=== PATIENT | female | born 1955 | race Caucasian/White ===

== ENCOUNTER 2024-12-28 18:39 | Observation (INO) | payer BC, SELFPAY ==
[2024-12-28] VITALS (7 sets, daily range): BP systolic 131–158; BP diastolic 59–76; BMI 36.5; BMI 36.1
[2024-12-28 12:29] LABS: Hematocrit 41.5 % (37.0-47.0); Hemoglobin 13.2 g/dL (12.0-16.0); Mean Corp Hgb Conc. 31.8 g/dL (33.0-37.0); Mean Corpuscular Volume 88.3 fL (81.0-99.0); Platelet Count 356 10^3/uL (130-400); Red Cell Dist. Width 13.1 % (11.5-14.5)
--- NOTE | 2024-12-28 13:43 | ED.GENMED ---
History of Present Illness
<Aron Crenshaw MD, Resident - Last Filed: 12/28/24 14:12>
General
Chief Complaint: Fever
Source: patient and family
Time Seen by Provider: 12/28/24 13:29
History of Present Illness
History of Present Illness:
This is a 69-year-old female presented with complaints of urinary symptoms including dysuria, urgency, frequency, chills and lower not feeling well. She informed me that last week she lost consciousness was taken to the ER and found to have
urosepsis was kept in the ICU for 2 days and then additional 3 days on medicine floor, she was at [facility] 12/21-12/27. During her stay she received IV antibiotics(unknown). Upon discharge she was given Levaquin 500 mg 1 tablet for 3 days.
Today was supposed to be her last day of oral antibiotic however she continues to experience urinary symptoms and chills, states she is unable to sleep because of children at night. She feels like there is something wrong which prompted her to
come to the ER for further evaluation.
Past History
<Aron Crenshaw MD, Resident - Last Filed: 12/28/24 14:12>
Past History
ED Past Medical History: Asthma, Cancer (Lung), CVA (Aneurysm), HTN, NIDDM and Other (History of renal stones and renal cyst)
ED Past Surgical History: Brain (Titanium clip for brain aneurysm), Orthopedic (Lumbar surgery) and Other (Left upper lung resection, right lung biopsy,)
Patient has exhibited threatening behavior?: No
Social History
Tobacco: Non-smoker
Alcohol: None
Drug: None
Personal:
Living: with family
Family History
Family History: Other (Noncontributory)
Review of Systems
<Aron Crenshaw MD, Resident - Last Filed: 12/28/24 14:12>
Review of Systems
Allergies reviewed?: Yes
Constitutional: Reports fatigue and chills
EENT: Reports no symptoms
Respiratory: Reports no symptoms
Cardiac: Reports no symptoms
ABD/GI: Reports abdominal pain
: Reports dysuria, frequency, flank pain, difficulty voiding and urgency
Musculoskeletal: Reports no symptoms
Skin: Reports no symptoms
Neurological: Reports no symptoms
Endocrine: Reports no symptoms
Hematologic/Lymphatic: Reports no symptoms
Psychiatric: Reports no symptoms
Phy Exam
<Aron Crenshaw MD, Resident - Last Filed: 12/28/24 14:12>
General Physical Exam
General Presentation: mild distress
General age: appears stated age
General Skin: warm
General Habitus: normal
General Mental: alert
Cardiovascular Exam
Cardiovascular Exam: regular rate/rhythm, no gallop and no murmur
Pulmonary Exam
Pulmonary Exam: lungs clear, no respiratory distress and no crackles
Gastrointestinal Exam
Gastrointestinal Exam: soft, non distended and tender (Suprapubic)
Musculoskeletal Exam
Musculoskeletal Exam: full ROM
Psychiatric Exam
Psychiatric Exam: normal mood/affect
Course
<Aron Crenshaw MD, Resident - Last Filed: 12/28/24 14:12>
Orders/Labs/Results
Orders:
Orders
12/28/24 12:10
Complete Blood Count/With Diff Urgent
12/28/24 14:05
CT Abd/pelvis W Iv Cont Urgent
Comment:
Reason For Exam: diffuse abd tenderness
12/28/24 14:06
0.9% Sodium Chloride 500 ml [Nss] 500 ml IV BOLUS
12/28/24 15:36
Comprehensive Metabolic Panel Urgent
12/28/24 15:37
Lactic Acid Urgent
Blood Culture Q30M
JOE Source: Blood/Venous
Specimen Description:
12/28/24 15:51
Urinalysis Reflex To Culture Urgent
Date Specimen was Collected: 12/28/24
Time Specimen was Collected: 11:59
Urine Microscopic Reflex Cult Urgent
Urine Culture Urgent
JOE Source: U
Specimen Description:
Date Specimen was Collected: 12/28/24
Time Specimen was Collected: 11:59
12/28/24 16:29
CefTRIAXone [Rocephin] 2,000 mg IV NOW STA
12/28/24 17:12
Blood Culture Q30M
JOE Source: Blood/Venous
Specimen Description:
Abnormal Lab Results
12/28/24 12/28/24 12/28/24
12:10 15:36 15:51
WBC 12.3 H 10^3/uL
(4.8-10.8)
MCHC 31.8 L g/dL
(33.0-37.0)
Abs Immat Gran (auto) 0.6 H 10^3/uL
(0-0.05)
Absolute Neuts (auto) 8.0 H 10^3/uL
(1.4-6.5)
Absolute Monos (auto) 0.7 H 10^3/uL
(0.1-0.6)
Immature Gran % 5.2 H %
(0-0.5)
Creatinine 1.7 H mg/dL
(0.6-1.0)
Glucose 127 H mg/dl
(70-99)
Ur Occult Blood Reflex 4+ A
(Negative)
Leukocyte Esterase Rfl 3+ A
(Negative)
Urine RBC 3-6 A /HPF
(0-2)
Urine WBC (Reflex) 30-40 A /HPF
(0-5)
Urine Bacteria (Reflex) Few A
(Negative)
Urine Glucose 1+ A
(Negative)
Urine Albumin (Reflex) 4+ A
(Neg - Trace)
12/28/24 12:10
12/28/24 15:36
Vital Signs
Initial and Last Documented VS:
Initial Vital Signs
Temp Pulse Resp BP Pulse Ox
98.7 F 75 18 131/69 98
12/28/24 11:54 12/28/24 11:54 12/28/24 11:54 12/28/24 11:54 12/28/24 11:54
Last Documented Vital Signs
Temp Pulse Resp BP Pulse Ox
98.2 F 65 16 135/61 98
12/28/24 17:18 12/28/24 17:18 12/28/24 17:18 12/28/24 17:18 12/28/24 17:18
<Kaya Diamond MD - Last Filed: 12/28/24 17:46>
Orders/Labs/Results
Orders:
Orders
12/28/24 12:10
Complete Blood Count/With Diff Urgent
12/28/24 14:05
CT Abd/pelvis W Iv Cont Urgent
Comment:
Reason For Exam: diffuse abd tenderness
12/28/24 14:06
0.9% Sodium Chloride 500 ml [Nss] 500 ml IV BOLUS
12/28/24 15:36
Comprehensive Metabolic Panel Urgent
12/28/24 15:37
Lactic Acid Urgent
Blood Culture Q30M
JOE Source: Blood/Venous
Specimen Description:
12/28/24 15:51
Urinalysis Reflex To Culture Urgent
Date Specimen was Collected: 12/28/24
Time Specimen was Collected: 11:59
Urine Microscopic Reflex Cult Urgent
Urine Culture Urgent
JOE Source: U
Specimen Description:
Date Specimen was Collected: 12/28/24
Time Specimen was Collected: 11:59
12/28/24 16:29
CefTRIAXone [Rocephin] 2,000 mg IV NOW STA
12/28/24 17:12
Blood Culture Q30M
JOE Source: Blood/Venous
Specimen Description:
Abnormal Lab Results
12/28/24 12/28/24 12/28/24
12:10 15:36 15:51
WBC 12.3 H 10^3/uL
(4.8-10.8)
MCHC 31.8 L g/dL
(33.0-37.0)
Abs Immat Gran (auto) 0.6 H 10^3/uL
(0-0.05)
Absolute Neuts (auto) 8.0 H 10^3/uL
(1.4-6.5)
Absolute Monos (auto) 0.7 H 10^3/uL
(0.1-0.6)
Immature Gran % 5.2 H %
(0-0.5)
Creatinine 1.7 H mg/dL
(0.6-1.0)
Glucose 127 H mg/dl
(70-99)
Ur Occult Blood Reflex 4+ A
(Negative)
Leukocyte Esterase Rfl 3+ A
(Negative)
Urine RBC 3-6 A /HPF
(0-2)
Urine WBC (Reflex) 30-40 A /HPF
(0-5)
Urine Bacteria (Reflex) Few A
(Negative)
Urine Glucose 1+ A
(Negative)
Urine Albumin (Reflex) 4+ A
(Neg - Trace)
12/28/24 12:10
12/28/24 15:36
Vital Signs
Initial and Last Documented VS:
Initial Vital Signs
Temp Pulse Resp BP Pulse Ox
98.7 F 75 18 131/69 98
12/28/24 11:54 12/28/24 11:54 12/28/24 11:54 12/28/24 11:54 12/28/24 11:54
Last Documented Vital Signs
Temp Pulse Resp BP Pulse Ox
98.2 F 65 16 135/61 98
12/28/24 17:18 12/28/24 17:18 12/28/24 17:18 12/28/24 17:18 12/28/24 17:18
<Aron Crenshaw MD, Resident - Last Filed: 12/28/24 14:12>
MDM/Problems Addressed
Differential Diagnosis Includes:
UTI vs renal stone vs less likely overactive bladder vs less likely neoplastic
MDM/Problems Addressed:
will get cbc, cmp, UA, lactate, BC. Given recent urosepsis and ongoing sxs, will get CT abd/pel
<Aron Crenshaw MD, Resident - Last Filed: 12/28/24 14:12>
*Pulse Oximetry
SaO2: 98
Oxygen Mode of Delivery: Room air
Patient hypoxic: no
*Critical Care Note
Total Time (30-74mins, 75-104mins- exclusive of procedures): Not Applicable
ED Attending Note
<Aron Crenshaw MD, Resident - Last Filed: 12/28/24 14:12>
-
Portions of this chart may have been created with voice recognition software.� Occasional wrong word or��sound alike� substitutions may have occurred due to the inherent limitations of voice recognition software.
<Kaya Diamond MD - Last Filed: 12/28/24 17:46>
ED Attending Note
Patient seen and examined by attending physician: Yes
I performed a history and physical exam of patient and discussed management with resident, I reviewed resident's note and agree with documented findings and plan of care.: Yes
ED Attending Note:
I have seen and evaluated the patient with a [id number] encounter. I have spoken to the [resident] and involved in the medical history, the physical exam, medical decision making.
Evaluation and management service: agree unless noted differently below.
Results interpretation: agree unless noted differently below.
Patient is a 69-year-old woman with history of diabetes presenting to the emergency department urinary symptoms. Patient states that she was just discharged a few days ago after being admitted for urosepsis at [facility]. She was discharged on
Levaquin. Her last day was today. Has been having ongoing fevers abdominal pain dysuria urgency frequency as well as chills. She states that she felt unwell feeling even at the time of discharge. No nausea or vomiting. No diarrhea.
GENERAL: Appears unwell
HEENT: normocephalic, extraocular movements intact, moist oral mucosa
NECK: normal inspection
RESPIRATORY: no respiratory distress, clear to auscultation bilaterally
CARDIOVASCULAR: regular rate and rhythm
ABDOMEN/: soft, non-distended, tenderness to the right upper quadrant as well as the suprapubic region, no rebound or guarding, no CVA tenderness
EXTREMITIES: non-tender, no edema/swelling
NEUROLOGIC: awake and alert, moves all extremities
SKIN: warm
Patient is a 69-year-old woman with recent admission for urosepsis at [facility] presenting to the emergency department with ongoing urinary symptoms as well as chills. On arrival patient is afebrile exam shows a woman who does appear unwell and
does have tenderness in the right upper quadrant suprapubic region. Concern for ongoing UTI versus Van versus kidney stone versus biliary etiology. Will check blood work repeat urine and obtain CT scan. Will give IV fluids and obtain blood
cultures as well as a lactate.
Lactate normal. Urine does appear infected. Will give IV ceftriaxone. CT scan consistent with cystitis. No obvious kidney stone. Discussed with hospitalist excepted patient to their service.
Discharge Plan
Departure
Patient Disposition: Admit
Date of Disposition: 12/28/24
Time of Disposition: 17:45
Presentation/result/management discussed w/ accepting /: Hospitalist
Discharge Problem:
UTI (urinary tract infection)
Referrals:
Irving Pagan DO [Family Provider, Family Practice]
Interventions
Interventions:
*Risk Screen - Suicide Last Done: 12/28/24 11:54
*General Assessment Last Done: 12/28/24 11:54
*Neglect/Abuse Screening Last Done: 12/28/24 11:54
*ED- Fall Risk Assessment Last Done: 12/28/24 16:04
*ED COVID-19 Vaccine History Last Done: 12/28/24 16:04
ED- Neurological Assessment Last Done: 12/28/24 16:04
ED-Skin Assessment Last Done: 12/28/24 16:04
Discharge Date and Time
Print Language: CZECH
[2024-12-28 13:51] LABS: Nucleated Red Blood Cells % 0.2 %
[2024-12-28] MEDS: NSS 500 IV (15:50)
[2024-12-28 15:59] LABS: Urine Character Slightly Cloudy (Clear)
[2024-12-28 16:03] LABS: ALT (SGPT) 20 U/L (0-35); AST (SGOT) 25 U/L (14-36); Albumin 4.1 g/dl (3.5-5.0); Alkaline Phosphatase 70 U/L (38-126); Blood Urea Nitrogen 16 mg/dl (7-17); Calcium 9.6 mg/dl (8.4-10.2); Carbon Dioxide 24 mmol/L (22-30); Chloride 104 mmol/L (98-107); Estimated Creatinine Clearance 32 ml/min; Glucose 127 mg/dl (70-99); Potassium 3.7 mmol/L (3.5-5.1); Sodium 139 mmol/L (135-145); Total Protein 7.6 g/dl (6.3-8.2); eGFR 32.06
[2024-12-28 16:15] LABS: Urine White Cell 30-40 /HPF (0-5)
[2024-12-28] MEDS: ROCEPHIN 2000 MG IV (17:13)
--- NOTE | 2024-12-28 18:00 | HPS.HSE ---
Family Physician
-
Family Physician: Irving Pagan
Chief Complaint
-
Fever
History of Present Illness
69-year-old female has dysuria, frequency and chills. She was seen in [place] and was admitted to ICU for 2 days and 3 days on the floor from 12/21/2024 to 12/27/2024. She got IV antibiotics and was discharged on Levaquin . Completed antibiotics
at home. She left still feeling chills and dysuria. Denies any cough. Temperature was 99
Medical History
Past Medical History
Past Medical History: Reports Other
Additional Past Medical History:
Asthma, history of lung cancer, CVA, hypertension, diabetes, recently had nodules on the right lung got biopsies. Awaiting results.
Past Surgical History: Reports Other
Additional Past Surgical History:
Brain aneurysm clip, left upper lung resection, right lung biopsy, back surgery
Social History
Tobacco: Former Smoker
Alcohol: None
Drug: None
Personal:
Living: With Family
Family History
Family History: Other (mom dementia, Father HTN)
Allergies / Home Medications
Allergies reflects when Allergies were last updated in [facility].
Home Medications with original date entered in [facility]
Allergy/Medication List:
Allergies
Allergy/AdvReac Type Severity Reaction Status Date / Time
aspirin AdvReac Nausea / Verified 12/28/24 14:08
Vomiting
erythromycin base AdvReac Nausea / Verified 12/28/24 14:08
Vomiting
NSAIDS (Non-Steroidal AdvReac Nausea / Verified 12/28/24 14:08
Anti-Inflamma Vomiting
Salicylates * AdvReac Nausea / Verified 12/28/24 14:08
Vomiting
Home Medications
acetaminophen 500 mg tablet (Tylenol Extra Strength) 1,000 mg PO BIDPRN PRN mild pain 12/28/24
albuterol sulfate 90 mcg/actuation aerosol inhaler (Ventolin HFA) 2 puff inhalation R Q4HPRN PRN sob 12/28/24
carvedilol 6.25 mg tablet 6.25 mg PO Q12H 12/28/24
empagliflozin 25 mg tablet (Jardiance) 25 mg PO DAILY 12/28/24
ezetimibe 10 mg tablet 10 mg PO DAILY 12/28/24
glimepiride 1 mg tablet 1 mg PO HS 12/28/24
indapamide 2.5 mg tablet 2.5 mg PO DAILY 12/28/24
levofloxacin 500 mg tablet 500 mg PO QPM 12/28/24
losartan 100 mg tablet 100 mg PO .SEE BELOW PRN high blood pressure 12/28/24
metformin 500 mg tablet,extended release 24hr (osmotic) 1,000 mg PO .SEE BELOW 12/28/24
morphine 15 mg tablet,extended release 15 mg PO Q12H 12/28/24
oxycodone 10 mg tablet 10 mg PO Q8H 12/28/24
rosuvastatin 40 mg tablet 40 mg PO DAILY 12/28/24
tirzepatide 5 mg/0.5 mL subcutaneous pen injector (Mounjaro) 5 mg SC RODRIGUEZ 12/28/24
Review of Systems
-
A 12 point ROS was completed and negative except as noted: Yes
Constitutional: Reports Fatigue and Chills
Respiratory: Denies Cough
Cardiac: Denies Chest Pain
Abdomen/GI: Reports Abdominal Pain; Denies Vomiting or Constipated
: Reports Dysuria, Frequency and Urgency; Denies Flank Pain
Physical Exam
Vital Signs
Vital Signs
Temp Pulse Resp BP Pulse Ox
98.2 F 65 16 135/61 98
12/28/24 17:18 12/28/24 17:18 12/28/24 17:18 12/28/24 17:18 12/28/24 17:18
Physical Exam
General: No Apparent Distress
Respiratory: Clear
Cardiac: S1/S2 and Regular Rhythm
GI: Soft and Tender (mild Lower quadrant tenderness)
Musculoskeletal: No Edema
Skin: Warm
Neuro: Awake, Alert, Oriented and Nonfocal/grossly intact
Psych: Intact Judgment/Insight
Laboratory Results
-
12/28/24 12:10
12/28/24 15:36
Laboratory Results
Lactic Acid 1.5 mmol/L (0.7-2.0) 12/28/24 15:37
Total Bilirubin 0.6 mg/dl (0.2-1.3) 12/28/24 15:36
AST 25 U/L (14-36) 12/28/24 15:36
ALT 20 U/L (0-35) 12/28/24 15:36
Alkaline Phosphatase 70 U/L (38-126) 12/28/24 15:36
Impression/Plan
-
IMPRESSION/PLAN:
CT abdomen pelvis-urinary bladder wall thickening and mild fat stranding. Recommend correlation with urinalysis if there is concern for acute cystitis. Bilateral nephrolithiasis. Bilateral renal cysts and a few other small renal lesions that are
indeterminate by donation. Likely complex cysts. Neoplasms cannot be excluded. Recommend abdominal MRI on routine basis. 1.9 cm circular H.E.L.P. hypoattenuating lesion of the hepatic dome also indeterminate. Completely evaluated with MRI.
# Chills, fatigue, dysuria, frequency
Possibly partially treated UTI
Start cefepime
Get culture data from [place] where she was recently admitted
Await our cultures as well
Pyridium for symptom control
Hold Jardiance
IV fluids
# Kidney injury
Acute kidney injury versus CKD
Hold Jardiance, metformin, losartan,Indapamide,
Get results from [place] and follow creatinine
# Hypertension-continue carvedilol. Hold Losartan
# Diabetes-hemoglobin A1c- check
Hold Jardiance, metformin,
On ro as OP
Continue glimepiride 1 mg p.o. at bedtime
# Hyperlipidemia-continue statin,Zetia
# Chronic pain- Narcotic dependent- Continue Morphine and Oxycodone
# History of Squamous cell lung cancer stage 1 a- S/P left upper Lobectomy December 2022
Now has right lung nodules- S/P Bx 2 weeks ago- awaiting results.
# Obesity BMI 36 On ro as OP
# Ex Smoker- Quit 13 years ago
# DVT Prophylaxis- SARAH
# Full CODE
D/W at bed side
D/W Pharmacy
Time spent over 75 min
Part of this note was created using voice recognition system. Occasional wrong word or��sound alike� substitutions may have inadvertently occurred due to the inherent limitations of voice recognition software. If noted kindly bring it to my
attention for correction.
[2024-12-28] MEDS: TYLENOL 1000 MG PO (19:03)
--- NOTE | 2024-12-28 21:07 | W.PN.UPDATE ---
Update Note
Progress Note Update
per pharmacist- pyridum contraindicated in pt with Crcl<50ml.min as can worsen JOHNNY and cause potential hemolytic anemia and methoemoglobinemia. Will DC
[2024-12-28] MEDS: SENOKOT 8.6 MG PO (21:33)
[2024-12-28] MEDS: HEPARIN 5000 UNITS SC (21:33)
[2024-12-28] MEDS: ROXICODONE 10 MG PO (21:33)
[2024-12-28] MEDS: MS CONTIN (EXTENDED RELEASE) 15 MG PO (21:33)
[2024-12-28] MEDS: COLACE 100 MG PO (21:33)
[2024-12-28] MEDS: COREG 6.25 MG PO (21:33)
[2024-12-28 21:57] LABS: Glucose - Point of Care 121 mg/dl (70-99)
[2024-12-28] MEDS: NSS 1000 IV (22:08)
[2024-12-28] MEDS: AMARYL 1 MG PO (22:08)
[2024-12-28] MEDS: MAXIPIME 1000 MG IV (23:30)
[2024-12-28] MEDS: STERILE WATER FOR INJECTION 10 ML IV (23:30)
[2024-12-29] MEDS: MELATONIN 5 MG PO (00:46)
[2024-12-29 03:41] VITALS: BP 119/64
[2024-12-29] MEDS: ROXICODONE 10 MG PO ×3 (05:51→23:05)
[2024-12-29 07:25] VITALS: BP 130/53
[2024-12-29 07:40] LABS: Glucose - Point of Care 122 mg/dl (70-99)
[2024-12-29] MEDS: NOVOLOG FLEXPEN-LOW RESISTANCE SC ×3 (07:41→16:58)
[2024-12-29] MEDS: MS CONTIN (EXTENDED RELEASE) 15 MG PO ×2 (08:13→20:06)
[2024-12-29] MEDS: COLACE 100 MG PO (08:15)
[2024-12-29] MEDS: SENOKOT 8.6 MG PO (08:15)
[2024-12-29] MEDS: MIRALAX 17 GRAMS PO (08:16)
[2024-12-29] MEDS: ZETIA 10 MG PO (08:16)
[2024-12-29] MEDS: HEPARIN 5000 UNITS SC ×2 (08:16→20:18)
[2024-12-29] MEDS: CRESTOR 40 MG PO (08:16)
[2024-12-29] MEDS: COREG 6.25 MG PO ×2 (08:17→20:06)
[2024-12-29] MEDS: MAXIPIME 1000 MG IV ×3 (08:17→23:22)
[2024-12-29] MEDS: STERILE WATER FOR INJECTION 10 ML IV ×3 (08:17→23:22)
[2024-12-29 08:35] LABS: Hematocrit 33.6 % (37.0-47.0); Hemoglobin 10.7 g/dL (12.0-16.0); Mean Corp Hgb Conc. 31.8 g/dL (33.0-37.0); Mean Corpuscular Volume 89.8 fL (81.0-99.0); Nucleated Red Blood Cells % 0 %; Platelet Count 269 10^3/uL (130-400); Red Cell Dist. Width 13.4 % (11.5-14.5)
[2024-12-29 09:25] LABS: Glycohemoglobin (HgbA1c) 6.6 % (4.0-5.6)
[2024-12-29 10:03] LABS: Blood Urea Nitrogen 16 mg/dl (7-17); Calcium 9.0 mg/dl (8.4-10.2); Carbon Dioxide 20 mmol/L (22-30); Chloride 108 mmol/L (98-107); Estimated Creatinine Clearance 36 ml/min; Glucose 113 mg/dl (70-99); Potassium 3.5 mmol/L (3.5-5.1); Sodium 138 mmol/L (135-145); eGFR 37.26
[2024-12-29] MEDS: NSS 1000 IV ×2 (10:32→23:22)
[2024-12-29] MEDS: TYLENOL 1000 MG PO (10:33)
[2024-12-29 11:20] VITALS: BP 112/55
[2024-12-29 12:31] LABS: Glucose - Point of Care 122 mg/dl (70-99)
--- NOTE | 2024-12-29 14:37 | W.PN.HOSP.TC ---
Today's Communication/Plan
-
Continue antibiotics
Await records from [place]
IV fluids
Antibiotics
Assessment / Plan
Assessment / Plan
CT abdomen pelvis-urinary bladder wall thickening and mild fat stranding. Recommend correlation with urinalysis if there is concern for acute cystitis. Bilateral nephrolithiasis. Bilateral renal cysts and a few other small renal lesions that are
indeterminate by donation. Likely complex cysts. Neoplasms cannot be excluded. Recommend abdominal MRI on routine basis. 1.9 cm circular H.E.L.P. hypoattenuating lesion of the hepatic dome also indeterminate. Completely evaluated with MRI.
Fells better . Lower abdominal discomfort better
Has chronic back and hip pain.
CVS: S1-S2 normal
Chest: CTA B/L
Abdomen: Soft, NT , Bowel sounds present
Extremities: No edema
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
# Chills, fatigue, dysuria, frequency
Possibly partially treated UTI
Started cefepime
Get culture data from [place] where she was recently admitted
Await our cultures as well
Pyridium stopped
Hold Jardiance
IV fluids
# Kidney injury
Acute kidney injury versus CKD
Hold Jardiance, metformin, losartan,Indapamide,
Get results from [place] and follow creatinine
# Hip pain-check x-ray. Lidocaine patch
# Hypertension-continue carvedilol. Hold Losartan
# Diabetes-hemoglobin A1c- 6.6
Hold Jardiance, metformin.
On Mounjaro as OP
Continue glimepiride 1 mg p.o. at bedtime
# Hyperlipidemia-continue statin,Zetia
# Chronic pain- Narcotic dependent- Continue Morphine and Oxycodone
# History of Squamous cell lung cancer stage 1 a- S/P left upper Lobectomy December 2022
Now has right lung nodules- S/P Bx 2 weeks ago- awaiting results.
# Obesity BMI 36 On Mounjaro as OP
# Ex Smoker- Quit 13 years ago
# DVT Prophylaxis- SARAH
# Full CODE
Anticipated Discharge: 24 - 48 hours
Subjective/Interval History
-
Date of Service: December 29, 2024
Objective Data
-
Labs:
Laboratory Results
12/29/24
08:11
WBC 10.3
Hgb 10.7 L
Hct 33.6 L
Plt Count 269 D
Sodium 138
Potassium 3.5
Chloride 108 H
Carbon Dioxide 20 L
BUN 16
Creatinine 1.5 H
Glucose 113 H
Calcium 9.0
Vital Signs:
Vital Signs
Temp Pulse Resp BP Pulse Ox
98.1 F 66 20 112/55 100
12/29/24 11:20 12/29/24 11:20 12/29/24 11:20 12/29/24 11:20 12/29/24 13:02
[2024-12-29 15:28] VITALS: BP 145/68
[2024-12-29] MEDS: LIDOCAINE 4% PATCH 1 PATCH TOPICAL (15:33)
[2024-12-29 16:55] LABS: Glucose - Point of Care 131 mg/dl (70-99)
--- NOTE | 2024-12-29 17:05 | CM ---
Alert awake oriented patient who lives with her in a 2 story home with 2 steps to enter and 10 steps to bed/bathroom. She is independent in activates of daily living.She does not drive .She used a walker here in hospital.Regular observation
copy given explained. Copy signed on chart.
Had [facility] in past . No SNF hx
Pharmacy [facility]
PCP Dr Cormier
PLAN Home with no anticipated needs
[2024-12-29 19:46] VITALS: BP 145/71
[2024-12-29] MEDS: COLACE PO (20:12)
[2024-12-29] MEDS: SENOKOT PO (20:13)
[2024-12-29 21:25] LABS: Glucose - Point of Care 112 mg/dl (70-99)
[2024-12-29] MEDS: AMARYL PO ×2 (22:00→23:06)
[2024-12-29] MEDS: REMOVE LIDOCAINE PATCH 1 PATCH REMOVE (23:05)
[2024-12-29 23:43] VITALS: BP 129/56
[2024-12-30] MEDS: TYLENOL 1000 MG PO ×2 (03:40→15:50)
[2024-12-30 03:43] VITALS: BP 123/43
[2024-12-30 05:40] VITALS: BP 116/53
[2024-12-30] MEDS: ROXICODONE 10 MG PO ×3 (06:36→22:57)
[2024-12-30 06:40] LABS: Hematocrit 34.6 % (37.0-47.0); Hemoglobin 10.8 g/dL (12.0-16.0); Mean Corp Hgb Conc. 31.2 g/dL (33.0-37.0); Mean Corpuscular Volume 90.3 fL (81.0-99.0); Platelet Count 281 10^3/uL (130-400); Red Cell Dist. Width 13.8 % (11.5-14.5)
[2024-12-30 07:18] LABS: Blood Urea Nitrogen 14 mg/dl (7-17); Calcium 9.0 mg/dl (8.4-10.2); Carbon Dioxide 21 mmol/L (22-30); Chloride 112 mmol/L (98-107); Estimated Creatinine Clearance 42 ml/min; Glucose 103 mg/dl (70-99); Potassium 3.9 mmol/L (3.5-5.1); Sodium 140 mmol/L (135-145); eGFR 44.24
[2024-12-30 07:20] VITALS: BP 116/47
[2024-12-30 07:56] LABS: Glucose - Point of Care 103 mg/dl (70-99)
[2024-12-30] MEDS: NOVOLOG FLEXPEN-LOW RESISTANCE SC ×2 (08:37→16:15)
[2024-12-30] MEDS: MAXIPIME 1000 MG IV ×3 (08:40→23:02)
[2024-12-30] MEDS: STERILE WATER FOR INJECTION 10 ML IV ×3 (08:40→23:02)
[2024-12-30] MEDS: COREG 6.25 MG PO ×2 (08:47→20:47)
[2024-12-30] MEDS: ZETIA 10 MG PO (08:47)
[2024-12-30] MEDS: COLACE 100 MG PO (08:47)
[2024-12-30] MEDS: HEPARIN 5000 UNITS SC ×2 (08:47→20:45)
[2024-12-30] MEDS: MIRALAX PO (08:47)
[2024-12-30] MEDS: CRESTOR 40 MG PO (08:47)
[2024-12-30] MEDS: LIDOCAINE 4% PATCH 1 PATCH TOPICAL (08:47)
[2024-12-30] MEDS: MS CONTIN (EXTENDED RELEASE) 15 MG PO ×2 (08:53→20:45)
[2024-12-30] MEDS: SENOKOT 8.6 MG PO (08:53)
[2024-12-30 11:05] VITALS: BP 133/68
[2024-12-30 11:40] LABS: Glucose - Point of Care 164 mg/dl (70-99)
[2024-12-30] MEDS: NOVOLOG FLEXPEN-LOW RESISTANCE 1 UNITS SC (13:33)
[2024-12-30] MEDS: NSS 1000 IV (14:49)
--- NOTE | 2024-12-30 15:03 | W.PN.HOSP.TC ---
Today's Communication/Plan
-
Await records from [facility]
Continue IV fluids and cefepime
Follow creatinine tomorrow
Assessment / Plan
Assessment / Plan
CT abdomen pelvis-urinary bladder wall thickening and mild fat stranding. Recommend correlation with urinalysis if there is concern for acute cystitis. Bilateral nephrolithiasis. Bilateral renal cysts and a few other small renal lesions that are
indeterminate by donation. Likely complex cysts. Neoplasms cannot be excluded. Recommend abdominal MRI on routine basis. 1.9 cm circular H.E.L.P. hypoattenuating lesion of the hepatic dome also indeterminate. Completely evaluated with MRI.
Fells better . Lower abdominal discomfort much better
Has chronic back and hip pain. Says improving.
CVS: S1-S2 normal
Chest: CTA B/L
Abdomen: Soft, NT , Bowel sounds present
Extremities: No edema
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
# Chills, fatigue, dysuria, frequency
Possibly partially treated UTI
Continue cefepime. Patient states that she feels much better
Get culture data from [facility] where she was recently admitted
For cultures and urine cultures at the recent hospital was negative
Pyridium ordered
Hold Jardiance
IV fluids to be continued
# Kidney injury
Acute kidney injury versus CKD
Hold Jardiance, metformin, losartan,Indapamide,
Get results from [place] and follow creatinine
# Hip pain-degenerative changes. Lidocaine patch for pain
# Hypertension-continue carvedilol. Hold Losartan
# Diabetes-hemoglobin A1c- 6.6
Hold Jardiance, metformin.
On Mounjaro as OP
Continue glimepiride 1 mg p.o. at bedtime
# Hyperlipidemia-continue statin,Zetia
# Chronic pain- Narcotic dependent- Continue Morphine and Oxycodone
# History of Squamous cell lung cancer stage 1 a- S/P left upper Lobectomy December 2022
Now has right lung nodules- S/P Bx 2 weeks ago- awaiting results.
# Obesity BMI 36 On Mounjaro as OP
# Ex Smoker- Quit 13 years ago
# DVT Prophylaxis- SARAH
# Full CODE
Discussed with daughter at bedside
Discussed with staff to request records again from [facility]
Part of this note was created using voice recognition system. Occasional wrong word or��sound alike� substitutions may have inadvertently occurred due to the inherent limitations of voice recognition software. If noted kindly bring it to my
attention for correction.
Anticipated Discharge: 24 - 48 hours
Subjective/Interval History
-
Date of Service: December 30, 2024
Objective Data
-
Labs:
Laboratory Results
12/30/24
05:56
WBC 9.7
Hgb 10.8 L
Hct 34.6 L
Plt Count 281
Sodium 140
Potassium 3.9
Chloride 112 H
Carbon Dioxide 21 L
BUN 14
Creatinine 1.3 H
Glucose 103 H
Calcium 9.0
Vital Signs:
Vital Signs
Temp Pulse Resp BP Pulse Ox
98.1 F 63 18 133/68 96
12/30/24 11:05 12/30/24 11:05 12/30/24 11:05 12/30/24 11:05 12/30/24 11:05
I&O
12/29/24 12/30/24 12/31/24
06:59 06:59 06:59
Intake Total 1640 / 1640
Balance 1640 / 1640
[2024-12-30 15:20] VITALS: BP 141/70
[2024-12-30] MEDS: MILK OF MAGNESIA 30 ML PO (15:42)
[2024-12-30 16:03] LABS: Glucose - Point of Care 123 mg/dl (70-99)
--- NOTE | 2024-12-30 16:49 | CM ---
Continue IV Fluids and IV antibiotics.
Awaiting on cultures.
requested [facility] medical records.
Pt is unsure she will need VN at discharge.
Offer VN at discharge.
PLAn Home with possible VN if needed
--- NOTE | 2024-12-30 18:55 | VATNOTE ---
Pt reported burning with edema < 2 inches noted at left basillic #22 IV site. NSS had been infusing. IV site removed and pillow provided for elevation.
[2024-12-30] MEDS: REMOVE LIDOCAINE PATCH 1 PATCH REMOVE (20:47)
[2024-12-30] MEDS: AMARYL 1 MG PO (21:00)
[2024-12-30 21:01] LABS: Glucose - Point of Care 124 mg/dl (70-99)
[2024-12-30] MEDS: COLACE PO (22:28)
[2024-12-30] MEDS: SENOKOT PO (22:29)
[2024-12-30 23:01] VITALS: BP 144/63
[2024-12-31] MEDS: TYLENOL 1000 MG PO ×3 (01:55→23:10)
[2024-12-31] MEDS: NSS 1000 IV ×2 (05:09→19:43)
[2024-12-31] MEDS: ROXICODONE 10 MG PO ×3 (06:19→21:59)
[2024-12-31 08:15] VITALS: BP 124/56
[2024-12-31 08:43] LABS: Blood Urea Nitrogen 12 mg/dl (7-17); Calcium 9.1 mg/dl (8.4-10.2); Carbon Dioxide 20 mmol/L (22-30); Chloride 114 mmol/L (98-107); Estimated Creatinine Clearance 49 ml/min; Glucose 95 mg/dl (70-99); Potassium 3.9 mmol/L (3.5-5.1); Sodium 141 mmol/L (135-145); eGFR 54.06
[2024-12-31 08:49] LABS: Glucose - Point of Care 123 mg/dl (70-99)
[2024-12-31] MEDS: STERILE WATER FOR INJECTION 10 ML IV ×3 (08:50→23:27)
[2024-12-31] MEDS: MAXIPIME 1000 MG IV ×3 (08:50→23:27)
[2024-12-31] MEDS: CRESTOR 40 MG PO (08:52)
[2024-12-31] MEDS: COREG 6.25 MG PO ×2 (08:52→19:44)
[2024-12-31] MEDS: LIDOCAINE 4% PATCH 1 PATCH TOPICAL (08:52)
[2024-12-31] MEDS: ZETIA 10 MG PO (08:52)
[2024-12-31] MEDS: HEPARIN 5000 UNITS SC ×2 (08:53→19:44)
[2024-12-31] MEDS: MS CONTIN (EXTENDED RELEASE) 15 MG PO ×2 (08:55→19:45)
[2024-12-31] MEDS: NOVOLOG FLEXPEN-LOW RESISTANCE SC ×3 (08:56→16:46)
[2024-12-31] MEDS: SENOKOT PO ×3 (08:57→19:57)
[2024-12-31] MEDS: COLACE PO ×3 (08:57→19:57)
[2024-12-31] MEDS: MIRALAX PO (08:57)
--- NOTE | 2024-12-31 10:53 | VATNOTE ---
Site of L arm infiltrate assessed during routine rounds. No swelling noted, pt denies pain, states she feels infiltrate is better and has now been resolved.
[2024-12-31 13:08] LABS: Glucose - Point of Care 149 mg/dl (70-99)
--- NOTE | 2024-12-31 13:30 | W.PN.HOSP.TC ---
Today's Communication/Plan
-
Continue current treatment for today
Await records from [place] [place]
Possible discharge tomorrow likely on p.o. Levaquin
Assessment / Plan
Assessment / Plan
CT abdomen pelvis-urinary bladder wall thickening and mild fat stranding. Recommend correlation with urinalysis if there is concern for acute cystitis. Bilateral nephrolithiasis. Bilateral renal cysts and a few other small renal lesions that are
indeterminate by donation. Likely complex cysts. Neoplasms cannot be excluded. Recommend abdominal MRI on routine basis. 1.9 cm circular H.E.L.P. hypoattenuating lesion of the hepatic dome also indeterminate. Completely evaluated with MRI.
Fells better . Lower abdominal discomfort much better
Has chronic back and hip pain. Says improving.
CVS: S1-S2 normal
Chest: CTA B/L
Abdomen: Soft, NT , Bowel sounds present
Extremities: No edema
METAPHYSICIST: Non focal exam
# Chills, fatigue, dysuria, frequency
Possibly partially treated UTI
Continue cefepime. Patient states that she feels much better
Get culture data from [place] where she was recently admitted
Blood cultures and urine cultures here are negative
Spoke to nursing centrifugal supervisor at [facility] discussed that we still have not gotten any records from [facility] despite multiple attempts.
Verbal report CT showed no acute changes. Renal cyst. Creatinine was 3.73 on admission which was 12/21/2024 and on discharge was 1.73 on 12/26/2024. Blood cultures were negative. Urine cultures on 12/22/2024 showed Pseudomonas which was sensitive
to Levaquin.
I requested her to fax the urine culture results to us. We still have not obtained it yet.
Hold Jardiance for the next 2 weeks
# Kidney injury
Acute kidney injury . Creatinine was 3.73 on 12/21/[address] [facility]
Hold Jardiance, metformin, losartan,Indapamide presently
# Hip pain-degenerative changes. Lidocaine patch for pain
# Hypertension-continue carvedilol. Hold Losartan
# Diabetes-hemoglobin A1c- 6.6
Hold Jardiance, metformin.
On Mounjaro as OP
Continue glimepiride 1 mg p.o. at bedtime
# Hyperlipidemia-continue statin,Zetia
# Chronic pain- Narcotic dependent- Continue Morphine and Oxycodone
# History of Squamous cell lung cancer stage 1 a- S/P left upper Lobectomy December 2022
Now has right lung nodules- S/P Bx 2 weeks ago- awaiting results.
# Obesity BMI 36 On Mounjaro as OP
# Ex Smoker- Quit 13 years ago
# DVT Prophylaxis- SARAH
# Full CODE
Discussed with nursing centrifugal supervisor at [facility]
Discussed with nursing
Discussed with staff to request records again from [facility] [place]
Part of this note was created using voice recognition system. Occasional wrong word or��sound alike� substitutions may have inadvertently occurred due to the inherent limitations of voice recognition software. If noted kindly bring it to my
attention for correction.
Anticipated Discharge: Within 24 hours
Subjective/Interval History
-
Date of Service: December 31, 2024
Objective Data
-
Labs:
Laboratory Results
12/31/24
07:54
Sodium 141
Potassium 3.9
Chloride 114 H
Carbon Dioxide 20 L
BUN 12
Creatinine 1.1 H
Glucose 95
Calcium 9.1
Vital Signs:
Vital Signs
Temp Pulse Resp BP Pulse Ox
97.8 F 57 18 124/56 94
12/31/24 08:15 12/31/24 08:15 12/31/24 08:15 12/31/24 08:15 12/31/24 08:15
I&O
12/30/24 12/31/24 01/01/25
06:59 06:59 06:59
Intake Total 1640 / 1640 1400 / 1400
Balance 1640 / 1640 1400 / 1399
[2024-12-31 15:23] VITALS: BP 139/62
[2024-12-31 16:58] LABS: Glucose - Point of Care 134 mg/dl (70-99)
[2024-12-31] MEDS: REMOVE LIDOCAINE PATCH 1 PATCH REMOVE (19:45)
[2024-12-31 21:33] LABS: Glucose - Point of Care 109 mg/dl (70-99)
[2024-12-31] MEDS: AMARYL 1 MG PO (21:59)
[2024-12-31 23:13] VITALS: BP 164/74
[2025-01-01] MEDS: MELATONIN 5 MG PO (00:14)
[2025-01-01] MEDS: ROXICODONE 10 MG PO ×2 (05:30→15:17)
[2025-01-01 07:21] LABS: Glucose - Point of Care 110 mg/dl (70-99)
[2025-01-01 07:30] VITALS: BP 148/62
[2025-01-01 07:50] LABS: Blood Urea Nitrogen 13 mg/dl (7-17); Calcium 9.1 mg/dl (8.4-10.2); Carbon Dioxide 19 mmol/L (22-30); Chloride 116 mmol/L (98-107); Estimated Creatinine Clearance 54 ml/min; Glucose 99 mg/dl (70-99); Potassium 4.2 mmol/L (3.5-5.1); Sodium 139 mmol/L (135-145); eGFR > 60.00
[2025-01-01] MEDS: STERILE WATER FOR INJECTION IV (08:45)
[2025-01-01] MEDS: NSS IV (08:45)
[2025-01-01] MEDS: NOVOLOG FLEXPEN-LOW RESISTANCE SC ×2 (08:45→12:46)
[2025-01-01] MEDS: MAXIPIME IV (08:45)
[2025-01-01] MEDS: MIRALAX PO (09:02)
[2025-01-01] MEDS: COLACE PO (09:02)
[2025-01-01] MEDS: SENOKOT PO (09:03)
[2025-01-01] MEDS: CRESTOR 40 MG PO (09:10)
[2025-01-01] MEDS: LIDOCAINE 4% PATCH 1 PATCH TOPICAL (09:10)
[2025-01-01] MEDS: COREG 6.25 MG PO (09:10)
[2025-01-01] MEDS: ZETIA 10 MG PO (09:11)
[2025-01-01] MEDS: HEPARIN 5000 UNITS SC (09:11)
[2025-01-01] MEDS: MS CONTIN (EXTENDED RELEASE) 15 MG PO (09:11)
[2025-01-01] MEDS: STERILE WATER FOR INJECTION 10 ML IV ×2 (09:12→17:21)
[2025-01-01] MEDS: MAXIPIME 1000 MG IV ×2 (09:12→17:21)
[2025-01-01] MEDS: FLUSH (NSS) 2 FLUSH IV (09:13)
--- NOTE | 2025-01-01 11:12 | W.PN.HOSP.TC ---
Addendum entered and electronically signed by Rolando Hinojosa MD 01/01/25 16:58:
More than 30 minutes spent in discharge including
Final examination of the patient
Summarizing hospital stay
Instructions for continuing care to all relevant caregivers
Preparation of discharge records, prescriptions, and referral forms
Total time spent (in minutes): 38 min
Addendum entered and electronically signed by Rolando Hinojosa MD 01/01/25 14:00:
QTC noted on EKG
Bladder scan 0 ml
Dictation- [id number]
Original Note:
Today's Communication/Plan
-
Check EKG to check QTc
Bladder scan to rule out PVR
Discharge later today
Assessment / Plan
Assessment / Plan
CT abdomen pelvis-urinary bladder wall thickening and mild fat stranding. Recommend correlation with urinalysis if there is concern for acute cystitis. Bilateral nephrolithiasis. Bilateral renal cysts and a few other small renal lesions that are
indeterminate by donation. Likely complex cysts. Neoplasms cannot be excluded. Recommend abdominal MRI on routine basis. 1.9 cm circular H.E.L.P. hypoattenuating lesion of the hepatic dome also indeterminate. Completely evaluated with MRI.
Fells better . Lower abdominal discomfort much better
Has chronic back and hip pain. Says improving.
CVS: S1-S2 normal
Chest: CTA B/L
Abdomen: Soft, NT , Bowel sounds present
Extremities: No edema
APPLIANCE LINE ASSEMBLER: Non focal exam
# Chills, fatigue, dysuria, frequency
Possibly partially treated UTI
Continue cefepime. Patient states that she feels much better
Get culture data from [place] where she was recently admitted
Blood cultures and urine cultures here are negative
Spoke to nursing subway repair supervisor at [facility] discussed that we still have not gotten any records from [facility] despite multiple attempts.
Verbal report CT showed no acute changes. Renal cyst. Creatinine was 3.73 on admission which was 12/21/2024 and on discharge was 1.73 on 12/26/2024. Blood cultures were negative. Urine cultures on 12/22/2024 showed Pseudomonas which was sensitive
to Levaquin.
Called and spoke to hospitalist on-call at [facility]. He [place] texted me urine cultures from 12/22/2024 which showed pansensitive Pseudomonas. Oral agent Levaquin will be used.
Check EKG to check QTc
Patient still has some frequency hopefully this will resolve once UTI is treated. She is aware that she needs to follow-up with urologist if frequency does not go away as she may need a cystoscopy.
Dysuria completely resolved
Hold Jardiance for the next 2 weeks
# Kidney injury
Acute kidney injury . Creatinine was 3.73 on 12/21/2024 at [facility]
Hold Jardiance, metformin, losartan,Indapamide presently
Restart metformin at discharge
Blood pressure stable
Restart indapamide and losartan after discharge
BMP in 1 week
# Hip pain-degenerative changes. Lidocaine patch for pain
# Hypertension-continue carvedilol. Restart losartan at discharge
# Diabetes-hemoglobin A1c- 6.6
Hold Jardiance, restart metformin at discharge
On ro as OP
Continue glimepiride 1 mg p.o. at bedtime
# Hyperlipidemia-continue statin,Zetia
# Chronic pain- Narcotic dependent- Continue Morphine and Oxycodone
# History of Squamous cell lung cancer stage 1 a- S/P left upper Lobectomy December 2022
Now has right lung nodules- S/P Bx 2 weeks ago- awaiting results.
# Obesity BMI 36 On ro as OP
# Ex Smoker- Quit 13 years ago
# DVT Prophylaxis- SARAH
# Full CODE
Discussed with hospitalist on-call Dr. Bulmaro Stafford at [facility]
Discussed with nursing
Part of this note was created using voice recognition system. Occasional wrong word or��sound alike� substitutions may have inadvertently occurred due to the inherent limitations of voice recognition software. If noted kindly bring it to my
attention for correction.
Anticipated Discharge: Today
Subjective/Interval History
-
Date of Service: January 01, 2025
Objective Data
-
Labs:
Laboratory Results
01/01/25
06:16
Sodium 139
Potassium 4.2
Chloride 116 H
Carbon Dioxide 19 L
BUN 13
Creatinine 1.0
Glucose 99
Calcium 9.1
Vital Signs:
Vital Signs
Temp Pulse Resp BP Pulse Ox
98.1 F 64 16 148/62 97
01/01/25 07:30 01/01/25 09:10 01/01/25 07:30 01/01/25 09:10 01/01/25 07:30
I&O
12/31/24 01/01/25 01/02/25
06:59 06:59 06:59
Intake Total 1400 / 1400 1919
Balance 1400 / 1400 1919
[2025-01-01] MEDS: TYLENOL 1000 MG PO (11:18)
[2025-01-01] MEDS: COLACE 100 MG PO (11:20)
[2025-01-01 11:51] LABS: Glucose - Point of Care 142 mg/dl (70-99)
--- NOTE | 2025-01-01 14:05 | W.DS.TRANS ---
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
-
Discharge Instructions:
Discharge Diagnosis/Procedures Pseudomonas UTI
Acute kidney injury
Chronic back pain
Hypertension
Diabetes
Hyperlipidemia
History of squamous cell lung cancer
Diverticulosis
Diet Diabetic, Carb Controlled
Activity As tolerated
Driving Restrictions As prior to admission
Blood Work bmp 1 week
Others Tests MRI of the abdomen to look at cyst in kidney
and also 1.9 cm hypoattenuating lesion in the
liver on the CAT scan (report given to you)
Instructions:
Stand-Alone Forms:
Changes to Home Medications: Yes
Discharge Medications:
DC Medications w/original date entered in [employer]
acetaminophen 500 mg tablet (Tylenol Extra Strength) 1,000 mg PO BIDPRN PRN mild pain 12/28/24
albuterol sulfate 90 mcg/actuation aerosol inhaler (Ventolin HFA) 2 puff inhalation R Q4HPRN PRN sob 12/28/24
carvedilol 6.25 mg tablet 6.25 mg PO Q12H Blood Pressure 12/28/24
empagliflozin 25 mg tablet (Jardiance) 25 mg PO DAILY Diabetes 12/28/24
Held on 01/01/25. Instructions: Resume on 01/16/25.
ezetimibe 10 mg tablet 10 mg PO DAILY High Cholesterol 12/28/24
glimepiride 1 mg tablet 1 mg PO HS Diabetes 12/28/24
indapamide 2.5 mg tablet 2.5 mg PO DAILY Blood Pressure 12/28/24
metformin 500 mg tablet,extended release 24hr (osmotic) 1,000 mg PO .SEE BELOW Diabetes 12/28/24
morphine 15 mg tablet,extended release 15 mg PO Q12H Pain 12/28/24
oxycodone 10 mg tablet 10 mg PO Q8H Pain 12/28/24
rosuvastatin 40 mg tablet 40 mg PO DAILY High Cholesterol 12/28/24
tirzepatide 5 mg/0.5 mL subcutaneous pen injector (Mounjaro) 5 mg SC RODRIGUEZ Diabetes 12/28/24
levofloxacin 750 mg tablet 750 mg PO DAILY uti #3 tabs 01/01/25
lidocaine 5 % topical patch (Lidoderm) 1 patch topical DAILY back #30 ea 01/01/25
losartan 100 mg tablet 50 mg (1/2 x 100 mg) PO .SEE BELOW PRN high blood pressure #0 tabs 01/01/25
polyethylene glycol 3350 17 gram oral powder packet 17 g PO DAILY Constipation #0 ea 01/01/25
sennosides 8.6 mg tablet (Valerie-yue) 8.6 mg PO BID Constipation #0 tabs 01/01/25
Home Medication Changes
Senokot, MiraLAX, lidocaine, Levaquin new
Losartan dose decreased
Pending Results: No
[2025-01-01 15:32] VITALS: BP 140/59
--- NOTE | 2025-01-01 15:59 | CM ---
Md entered order for discharge
Spoke with pt at bedside . She said that she was ready for discharge.
Her Narciso will drive her home.
Offered VN she declined need.
PLAN Home no needs
== END 2025-01-01 21:26 | disposition home or self-care (01) ==
LOC: 4 EAST ACU 18:39
PROVIDERS: Emergency Medicine; ADMITTING PHYSICIAN Hospitalist; EMERGENCY PHYSICIAN Student in an Organized Health Care Education/Training Program; FAMILY PHYSICIAN Family Medicine
DX: N39.0 Urinary tract infection, site not specified (principal); B96.5 Pseudomonas (aeruginosa) (mallei) (pseudomallei) as the cause of diseases classified elsewhere; N17.9 Acute kidney failure, unspecified; I10 Essential (primary) hypertension; N20.0 Calculus of kidney; G89.29 Other chronic pain; E11.9 Type 2 diabetes mellitus without complications; D62 Acute posthemorrhagic anemia; E78.5 Hyperlipidemia, unspecified; E66.9 Obesity, unspecified; F11.20 Opioid dependence, uncomplicated; J45.909 Unspecified asthma, uncomplicated; Z68.36 Body mass index [BMI] 36.0-36.9, adult; Z79.84 Long term (current) use of oral hypoglycemic drugs; Z79.85 Long-term (current) use of injectable non-insulin antidiabetic drugs; Z79.899 Other long term (current) drug therapy; Z85.118 Personal history of other malignant neoplasm of bronchus and lung; Z86.73 Personal history of transient ischemic attack (TIA), and cerebral infarction without residual deficits; Z87.442 Personal history of urinary calculi; Z87.891 Personal history of nicotine dependence
CPT/HCPCS: 71046; 73502; 74177; 80048; 80053; 81003; 81015; 82962; 83036; 83605; 85025; 85027; 87040; 87086; 93005; 96361; 96374; 99284; G0378; Q9967

== ENCOUNTER → 2025-02-22 07:05 | Outpatient (REF) | payer BC, SELFPAY | LOC: RSP 07:05 | PROVIDERS: ATTENDING PHYSICIAN Surgery; FAMILY PHYSICIAN Family Medicine | DX: R91.1 Solitary pulmonary nodule (principal) | CPT/HCPCS: 88738; 94010; 94727; 94729 ==

== ENCOUNTER → 2025-03-09 07:34 | Outpatient (REF) | payer BC, SELFPAY | LOC: RAD 07:34 | PROVIDERS: ATTENDING PHYSICIAN Surgery; FAMILY PHYSICIAN Family Medicine | DX: R91.1 Solitary pulmonary nodule (principal) | CPT/HCPCS: 71260; Q9967 ==

== ENCOUNTER 2025-04-15 08:24 | Inpatient (IN) | payer BC, SELFPAY ==
[2025-03-28 08:50] LABS: Hematocrit 45.1 % (37.0-47.0); Hemoglobin 14.3 g/dL (12.0-16.0); Mean Corp Hgb Conc. 31.7 g/dL (33.0-37.0); Mean Corpuscular Volume 89.8 fL (81.0-99.0); Platelet Count 225 10^3/uL (130-400); Red Cell Dist. Width 14.5 % (11.5-14.5)
[2025-03-28 08:53] LABS: APTT 22.5 Sec (23.4-35.0); INR 1.01; PT 13.6 Sec (11.4-14.6)
[2025-03-28 10:03] LABS: ALT (SGPT) 24 U/L (0-35); AST (SGOT) 17 U/L (14-36); Albumin 4.1 g/dl (3.5-5.0); Alkaline Phosphatase 52 U/L (38-126); Blood Urea Nitrogen 32 mg/dl (7-17); Calcium 9.8 mg/dl (8.4-10.2); Carbon Dioxide 26 mmol/L (22-30); Chloride 104 mmol/L (98-107); Glucose 148 mg/dl (70-99); Potassium 5.1 mmol/L (3.5-5.1); Sodium 138 mmol/L (135-145); Total Protein 6.8 g/dl (6.3-8.2); eGFR 54.06
[2025-03-28 14:12] VITALS: BMI 36.0
--- NOTE | 2025-04-11 17:05 | PTCARENOTE ---
Abnormal EKG from 01/01/[address] Baez, no further action required.
[2025-04-15] VITALS (14 sets, daily range): BP systolic 123–168; BP diastolic 67–82; BMI 36.0
[2025-04-15] MEDS: NEURONTIN 300 MG PO (08:36)
[2025-04-15] MEDS: TYLENOL 1000 MG PO (08:36)
[2025-04-15] MEDS: TRANSDERM-SCOP 1 PATCH TRANSDERM (08:37)
[2025-04-15 09:09] LABS: Glucose - Point of Care 123 mg/dl (70-99)
[2025-04-15] MEDS: HEPARIN 5000 UNITS SC ×2 (09:22→19:53)
[2025-04-15 12:26] LABS: Glucose - Point of Care 166 mg/dl (70-99)
[2025-04-15] MEDS: DILAUDID 0.5 MG IV ×3 (12:30→13:03)
--- NOTE | 2025-04-15 12:46 | OR.RPT ---
Operative Report
Operative Report
Date of Operation: April 15, 2025
Preoperative Diagnosis: Lung Mass, Solitary - R911
Postoperative Diagnosis: Right lower lobe lung cancer - C3431
Surgeon: Riky Banuelos M.D.
Operation: Minimally invasive Wedge Resection of the Right Lower Lobe Lung Cancer � [id number]
Mediastinal Lymph Node Dissection - [id number]
Anesthesia: GET
Estimated Blood Loss: 10 cc
Drains: Chest tube in the right thorax
Specimen: Right Lower Lobe Cancer and Mediastinal Lymph Nodes
Complications: None
Procedure:
The patient was taken to the operating room and placed in the usual supine position. After an adequate double-lumen endotracheal tube was placed, the patient was positioned in the left decubitus position with the right chest up. The right chest was
prepped and draped in the usual sterile fashion. At this time, a 6 cm mid-axillary incision was made with a #10 blade, and this was taken through the skin into the subcutaneous tissue. The serratus anterior muscle overlying the 5th intercostal space
was identified and split along the course of the muscle fibers. The intercostal muscle of the fifth intercostal space was divided, and the left chest was entered. The left chest was explored. The tumor in the right lower lobe superior segment was
identified.
The tumor was wedge resected with 2 cm margins with Endo-BRIANA purple tri-mohsen. The intraoperative pathology evaluations showed non-small cell lung cancer. The margins were clean. At this time, mediastinal lymph node dissection was performed. The
lymph nodes from stations 4 to 10 were taken and sent to pathology for permanent section. Hemostasis was obtained. A 28 Israeli chest tube was placed through the anterior thoracostomy incision and anchored to the skin using a #2 nylon suture. The
ribs were re-approximated with 1 Vicryl in the transcostal fascia. The serratus anterior muscle was also re-approximated with 1 Vicryl in a running fashion. The fascia was approximated with 1 Vicryl in a running fashion. The subcutaneous tissue was
re-approximated with 3-0 Vicryl in a running fashion. The skin was approximated with 4-0 Monocryl in a running subcuticular fashion. Steri-strips and a sterile dressing were placed. The chest tube was connected to the Pleurovac. The patient was
placed back in the supine position and extubated without any problems. The final needle, sponge, and instrument counts were correct. The patient was transferred to the recovery room.
--- NOTE | 2025-04-15 12:58 | SUR.PHASEI ---
1208 Pt arrived to PACU with A-line, Woodrow TENORIO request that A-line be removed. A-line removed, pressure held for 10 minutes, Dressing applied, no s/sx of hematoma and radial pulse present
[2025-04-15] MEDS: D5/0.9% SODIUM CHLORIDE 1000 IV (14:36)
--- NOTE | 2025-04-15 14:49 | PTCARENOTE ---
Received patient from PACU around 1430 via bed in stable condition. VS stable. Chest tube to R chest wall in place to water seal draining with 8 mls of bloody drainage in chamber. Patient oriented to room. Call be in reach.
[2025-04-15] MEDS: COREG 6.25 MG PO ×2 (15:10→22:09)
[2025-04-15] MEDS: DILAUDID 1 MG IV ×2 (15:11→17:40)
[2025-04-15] MEDS: TYLENOL 650 MG PO ×2 (16:15→19:53)
[2025-04-15] MEDS: NEURONTIN 200 MG PO ×2 (16:15→22:09)
[2025-04-15] MEDS: AMARYL 1 MG PO (17:42)
[2025-04-15] MEDS: MUCINEX 600 MG PO (19:53)
[2025-04-15] MEDS: COLACE 100 MG PO (19:53)
[2025-04-15] MEDS: ADVAIR HFA 115/21 MCG INHALER INH (20:59)
[2025-04-15] MEDS: ADVAIR HFA 115/21 MCG INHALER 2 PUFF INH (21:04)
[2025-04-16] VITALS (8 sets, daily range): BP systolic 108–150; BP diastolic 58–89; PULSE 63; O2SAT 96
[2025-04-16] MEDS: TYLENOL 650 MG PO ×7 (00:09→23:42)
--- NOTE | 2025-04-16 00:55 | PTCARENOTE ---
at approx 21:30 rt verbalized pt in room 2106 pulse ox is 97% on 02 however he could not wake her up. Nurse in pt not receptive to voice ,sternal rub implemented and pt woke up began to moan and request pain medication vs stable rr 12. Pt was
educated regarding pain meds and sedation. Pt was repositioned in bed, ice pk placed to CT site. 22:00 pt was given her Neurontin and repositioned, CT site assessed, DRG CDI, draining well to gravity, lungs diminished, no crepitus palpated. Pt
verbalized she can tolerate pain until her 00:00 Tylenol is due. HOB elevated, pt was quickly back to sleep. MAINTENANCE AIDE made aware.
[2025-04-16] MEDS: D5/0.9% SODIUM CHLORIDE 1000 IV (02:16)
[2025-04-16 06:19] LABS: Hematocrit 38.9 % (37.0-47.0); Hemoglobin 12.2 g/dL (12.0-16.0); Mean Corp Hgb Conc. 31.4 g/dL (33.0-37.0); Mean Corpuscular Volume 88.8 fL (81.0-99.0); Platelet Count 217 10^3/uL (130-400); Red Cell Dist. Width 14.3 % (11.5-14.5)
[2025-04-16 06:44] LABS: ALT (SGPT) 18 U/L (0-35); AST (SGOT) 25 U/L (14-36); Albumin 3.4 g/dl (3.5-5.0); Alkaline Phosphatase 48 U/L (38-126); Blood Urea Nitrogen 18 mg/dl (7-17); Calcium 9.0 mg/dl (8.4-10.2); Carbon Dioxide 25 mmol/L (22-30); Chloride 108 mmol/L (98-107); Estimated Creatinine Clearance 51 ml/min; Glucose 242 mg/dl (70-99); Potassium 4.4 mmol/L (3.5-5.1); Sodium 140 mmol/L (135-145); Total Protein 5.9 g/dl (6.3-8.2); eGFR 54.06
[2025-04-16] MEDS: TRICOR 145 MG PO (08:03)
[2025-04-16] MEDS: CRESTOR 40 MG PO (08:03)
[2025-04-16] MEDS: MUCINEX 600 MG PO ×2 (08:04→19:19)
[2025-04-16] MEDS: COLACE 100 MG PO ×2 (08:04→19:19)
[2025-04-16] MEDS: HEPARIN 5000 UNITS SC ×2 (08:04→19:19)
[2025-04-16] MEDS: COREG 6.25 MG PO ×2 (08:04→19:20)
[2025-04-16] MEDS: NEURONTIN 200 MG PO ×3 (08:04→21:30)
[2025-04-16] MEDS: LIDOCAINE 4% PATCH 1 PATCH TOPICAL (08:05)
[2025-04-16] MEDS: ADVAIR HFA 115/21 MCG INHALER 2 PUFF INH ×2 (08:29→17:53)
[2025-04-16] MEDS: ZETIA 10 MG PO (11:14)
[2025-04-16] MEDS: COZAAR 100 MG PO (11:15)
[2025-04-16] MEDS: ROXICODONE 10 MG PO ×2 (11:15→17:09)
--- NOTE | 2025-04-16 12:16 | W.PN.GENERIC ---
Assessment / Plan
-
S/p resection of the right lung cancer POD #1
Stable
Chest tube dc'd. will check CXR in 3 hours then tomorrow AM
Put patient back on her home pain medication regiment and also Toradol added
OOB and ambulate
Await final path
Physician Progress Note
Subjective
C/o significant incision of pain. Otherwise no active issues
Objective
Vital Signs
Temp Pulse Resp BP Pulse Ox
98.4 F 64 20 124/59 96
04/16/25 11:12 04/16/25 11:15 04/16/25 11:12 04/16/25 11:15 04/16/25 11:12
Lab Results
04/16/25 05:33
04/16/25 05:33
Chest - CTA. CHest tube withour AL.
CXR - no PTX
[2025-04-16] MEDS: TORADOL 15 MG IV ×2 (14:02→18:31)
--- NOTE | 2025-04-16 16:04 | CM ---
CM met with pt bedside
Pt resides with her spouse in a 2SH with 2STE, full flight to 2nd floor
Pt is independent with her ADLs with use of a WW throughout her home and SPC in community
PCP- Irving Pagan
Rx- [facility]
Pt is POD#1 rescetion of R. lower lobe tumor and lymph node dissection
Spicer, O2 and chest tube have been removed
PT/OT with SNF recs
PAC provided- pt declined
She is hopeful for home with VN
Her spouse works out of the home during the day
She noted her dtr can work from her home during the day to assist if needed
Referral made to [facility] and pending
Discharge Disposition-declined SNF, referral to [facility] made
[2025-04-16] MEDS: AMARYL 1 MG PO (17:04)
[2025-04-16] MEDS: MS CONTIN (EXTENDED RELEASE) 15 MG PO (19:22)
[2025-04-16] MEDS: REMOVE LIDOCAINE PATCH 1 PATCH REMOVE (21:31)
[2025-04-17] MEDS: TORADOL 15 MG IV ×2 (01:22→06:37)
[2025-04-17] MEDS: TYLENOL 650 MG PO ×2 (04:21→08:05)
[2025-04-17 07:00] VITALS: BP 135/61
[2025-04-17] MEDS: ADVAIR HFA 115/21 MCG INHALER 2 PUFF INH (07:55)
[2025-04-17] MEDS: MS CONTIN (EXTENDED RELEASE) 15 MG PO (08:02)
[2025-04-17] MEDS: CRESTOR 40 MG PO (08:05)
[2025-04-17] MEDS: MUCINEX 600 MG PO (08:05)
[2025-04-17] MEDS: TRICOR 145 MG PO (08:05)
[2025-04-17] MEDS: NEURONTIN 200 MG PO (08:05)
[2025-04-17] MEDS: HEPARIN 5000 UNITS SC (08:06)
[2025-04-17] MEDS: COREG 6.25 MG PO (08:06)
[2025-04-17] MEDS: COLACE 100 MG PO (08:06)
[2025-04-17] MEDS: LIDOCAINE 4% PATCH 1 PATCH TOPICAL (08:06)
[2025-04-17] MEDS: ROXICODONE 10 MG PO (10:12)
--- NOTE | 2025-04-17 10:38 | W.DS.TRANS ---
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
-
Discharge Instructions:
Sleep Apnea Risk Low
Instructions:
Stand-Alone Forms:
Changes to Home Medications: No
Discharge Medications:
DC Medications w/original date entered in [employer]
acetaminophen 500 mg tablet (Tylenol Extra Strength) 1,000 mg PO BIDPRN PRN mild pain 12/28/24
albuterol sulfate 90 mcg/actuation aerosol inhaler (Ventolin HFA) 2 puff inhalation R Q4HPRN PRN sob 12/28/24
carvedilol 6.25 mg tablet 6.25 mg PO Q12H Blood Pressure 12/28/24
ezetimibe 10 mg tablet 10 mg PO DAILY@1200 High Cholesterol 12/28/24
glimepiride 1 mg tablet 1 mg PO HS Diabetes 12/28/24
morphine 15 mg tablet,extended release 15 mg PO Q12H Pain 12/28/24
oxycodone 10 mg tablet 10 mg PO Q8H Pain 12/28/24
tirzepatide 5 mg/0.5 mL subcutaneous pen injector (Mounjaro) 5 mg SC RODRIGUEZ Diabetes 12/28/24
lidocaine 5 % topical patch (Lidoderm) 1 patch topical DAILY back #30 ea 01/01/25
ergocalciferol (vitamin D2) 1,250 mcg (50,000 unit) capsule (Vitamin D2) 1,250 mcg PO QWEEK 04/08/25
fenofibrate nanocrystallized 145 mg tablet 145 mg PO DAILY 04/08/25
guaifenesin 600 mg tablet, extended release 12 hr (Mucinex) 600 mg PO BID 04/08/25
ibuprofen 200 mg tablet (Advil) 600 mg PO BID 04/08/25
losartan 100 mg tablet 100 mg PO DAILY@1200 04/08/25
fluticasone 250 mcg-salmeterol 50 mcg/dose blistr powdr for inhalation (Advair Diskus) 1 inh inhalation BID 04/15/25
rosuvastatin 40 mg tablet 40 mg PO DAILY 04/15/25
Home Medication Changes
Pending Results: No
--- NOTE | 2025-04-17 10:59 | W.DCSUMMARY ---
Discharge Summary
Discharge Data
Date of Admission: 04/15/25
Date of Discharge: 04/17/25
-
Pending Results: No
Hospital Course
NAME: Norma Zazueta (1955)
DATE OF ADMISSION: 04/15/2025
DATE OF DISCHARGE: 04/17/2025
DIAGNOSIS: Right lower lobe lung cancer
PROCEDURE: Wedge resection of the right right lower lobe tumor and mediastinal lymph node dissection.
SURGEON: Riky Banuelos M.D.
HISTORY OF PRESENT ILLNESS:
She is a 69-year-old woman with a history of Stage IB left upper lobe cancer, resected in 2022. Recently, she was found to have an enlarging right lower lung nodule. On 12/14/24, she underwent a bronchoscopic biopsy of the enlarging right lower lobe
lung nodule. The final pathology showed no evidence of malignancy. Recently, she was admitted to [facility] with urosepsis and discharged home on antibiotics. Otherwise, she had no complaints today.
PAST MEDICAL HISTORY: CKD, left lung cancer, HTN, and DM2.
ALLERGIES: erythromycin and ASA.
MEDICATIONS:
carvedllol 6.25 mg tablet 5.25 mg PO BID
indapamide 2.5 mg tablet 2.5 mg PO DAILY
glimepiride 1 mg tablet 1 mg PO HS
morphine 15 mg tablet extended release 15 mg PO Q12H
ezetimibe 10 mg tablet 10 mg PO DAILY
rosuvastatin 40 mg tablet 40 mg PO DAILY
Jar diance 25 mg tablet 2.5 mg PO DAILY
Mounjaro 5 mg/0.5 mL pen injector 5 mg SUBCUT l X Wk
albuterol sulfate [Ventolin HFA] 90 mcg/actuation HFA aerosol inhaler NHALATION Q4-5H PRN
REVIEW OF SYSTEMS: Unremarkable.
SOCIAL HISTORY: No EtOH or tobacco use.
FAMILY HISTORY: Non-contributory.
PHYSICAL EXAMINATION:
She was anicteric. Her head and neck examination revealed no lymphadenopathy or masses. The heart had a regular rhythm and rate. The chest was clear bilaterally. The left chest surgical scar healed well without any evidence of recurrent disease. The
lymph node basins in the left cervical, supraclavicular, axillary, and inguinal regions revealed no evidence of lymphadenopathy.
HOSPITAL COURSE: She presented to the hospital and underwent an eventful surgery. Postoperatively, she was transferred to the surgical floor, where she recovered well without any problem. On postoperative date #2, she was discharged.
CONDITION ON DISCHARGE: Stable
FOLLOW-UP: 1-2 weeks.
Discharge Plan
-
Patient Disposition: Home (Routine Discharge)
Discharge Diagnosis/Procedures: Right lower lobe lung cncer
Condition: Fair
Diet: As tolerated
Activity: As tolerated and No strenuous activity
Driving Restrictions: Not until seen by your Dr
Bathing Restrictions: OK to Shower
Activity Restrictions/Additional Instructions:
Call Dr. Banuelos's office for an follow-up appointment. ([phone])
Referrals:
Irving Pagan DO [Family Provider, Family Practice]
Prescriptions:
Continued
carvedilol 6.25 mg Tablet
6.25 mg PO Q12H
acetaminophen [Tylenol Extra Strength] 500 mg Tablet
1,000 mg PO BIDPRN PRN (Reason: mild pain)
glimepiride 1 mg Tablet
1 mg PO HS
morphine 15 mg Tablet Extended Release
15 mg PO Q12H
albuterol sulfate [Ventolin HFA] 90 mcg/actuation Hfa Aerosol Inhaler
2 puff INHALATION R Q4HPRN PRN (Reason: sob)
ezetimibe 10 mg tablet
10 mg PO DAILY@1200
oxycodone 10 mg Tablet
10 mg PO Q8H
Mounjaro 5 mg/0.5 mL Pen Injector
5 mg SC RODRIGUEZ
lidocaine [Lidoderm] 5 % adhesive patch,medicated
1 patch topical DAILY Qty: 30 0RF
fenofibrate nanocrystallized 145 mg tablet
145 mg PO DAILY
losartan 100 mg tablet
100 mg PO DAILY@1200
ergocalciferol (vitamin D2) [Vitamin D2] 1,250 mcg (50,000 unit) Capsule
1,250 mcg PO QWEEK
guaifenesin [Mucinex] 600 mg Tablet Extended Release 12hr
600 mg PO BID
ibuprofen [Advil] 200 mg Tablet
600 mg PO BID
fluticasone propion-salmeterol [Advair Diskus] 250-50 mcg/dose Blister With Device
1 inh INHALATION BID
rosuvastatin 40 mg Tablet
40 mg PO DAILY
Discharge Orders:
Discharge Patient (As Directed); Ordered 04/17/25
Ordered By: Riky Banuelos
Discharge Date and Time
Print Language: EMIRATI
[2025-04-17 11:06] VITALS: BP 146/57
[2025-04-17] MEDS: FLUZONE HIGH-DOSE 2025-26 0.5 ML IM (11:11)
--- NOTE | 2025-04-17 11:15 | CM ---
CM reviewed chart and noted dc order
Bedside meeting with pt-plan remains for home with homecare
Discussion with [facility] admissions and pt accepted for service with [facility] Pimentel
TT/Dr Banuelos and he will place VN order
Discharge Disposition- home with [facility], family transport
== END 2025-04-17 11:30 | disposition home health service (06) | DRG 165 ==
LOC: 2 SOUTH 08:24
PROVIDERS: ADMITTING PHYSICIAN Surgery; FAMILY PHYSICIAN Family Medicine
PROC: 0BBF0ZZ Excision of Right Lower Lung Lobe, Open Approach (ICD-10-PCS; 2025-04-15)
PROC: 07B70ZX Excision of Thorax Lymphatic, Open Approach, Diagnostic (ICD-10-PCS; 2025-04-15)
PROC: 3E02340 Introduction of Influenza Vaccine into Muscle, Percutaneous Approach (ICD-10-PCS; 2025-04-17)
DX: C34.31 Malignant neoplasm of lower lobe, right bronchus or lung (principal); Z85.118 Personal history of other malignant neoplasm of bronchus and lung; N18.9 Chronic kidney disease, unspecified; E11.22 Type 2 diabetes mellitus with diabetic chronic kidney disease; I12.9 Hypertensive chronic kidney disease with stage 1 through stage 4 chronic kidney disease, or unspecified chronic kidney disease; Z23 Encounter for immunization
CPT/HCPCS: 36415; 71045; 80053; 82962; 85027; 85610; 85730; 86850; 86900; 86901; 88305; 88307; 88331; 90662; 94640; 97116; 97162; 97166; G0008

== ENCOUNTER 2025-04-25 03:14 | Inpatient (IN) | payer BC, SELFPAY ==
[2025-04-25] VITALS (60 sets, daily range): BP systolic 58–135; BP diastolic 25–84; BMI 37.2; BMI 36.7
--- NOTE | 2025-04-25 01:13 | ED.GENMED ---
History of Present Illness
General
Chief Complaint: Breathing Problem
Source: patient, ambulance crew and previous hospital records (Recent hospitalization April 15 to April 17 undergoing wedge resection of the right lower lobe tumor and mediastinal lymph node dissection.)
Exam Limitations: clinical condition
Time Seen by Provider: 04/25/25 01:00
Nursing documentation reviewed up to this point in time: agreed with
History of Present Illness
History of Present Illness:
This is a 69-year-old woman with history of ekk-huyxxuy-ldsmbljlh diabetes, hypertension, hyperlipidemia, chronic low back pain�narcotic dependent, she has a history of left lung cancer status post left upper lobe resection 2022. More recently
underwent right lower lobe wedge resection as well as mediastinal lymph node dissection April 15 for recurrent�right lung cancer. Discharged to home April 17.
Over the past several days she has had progressive shortness of breath without cough nor fever. According to she has had poor oral intake since discharge home, drinking fluids well but poor intake for solids.
Shortness of breath worsened tonight, severe in nature prompting call to 911. Upon EMS arrival patient noted to be in severe respiratory distress with initial pulse ox in the 50s. Placed on BiPAP prehospital with improvement in pulse ox to mid 80s.
Due to restlessness she was given Versed 2.5 mg prehospital.
Upon arrival to the ED initial pulse ox 99 to 100% on BiPAP 16/8 with 100% oxygen.
Upon arrival patient initially complaining of some substernal chest pain. Chest pain has resolved shortly after arrival to the ED.
According to , patient has not been complaining of chest pain, she has not had a cough nor fever.
She does have a history of chronic low back pain, chronically maintained on MS Contin as well as oxy IR. MS Contin recently increased from 15 mg twice daily to 30 mg twice daily. According to she has been taking her medications
appropriately.
She has had no leg pain or swelling.
Upon review of records, hospitalized at [place] in November of this year for UTI/urosepsis and then again here in December for similar UTI/urosepsis. More recently patient has not had UTI symptoms. And again no recent fever.
Past History
Past History
ED Past Medical History: Asthma, Cancer (Left upper lobe lung cancer status post left upper lobe resection 2022. Right lower lobe lung cancer status post wedge resection right lower lobe and mediastinal lymph node dissection April 15, 2025), CVA
(Aneurysm), HTN, Hypercholesterolemia, NIDDM, Other (Chronic low back pain, narcotic dependent) and Other (History of renal stones and renal cyst)
ED Past Surgical History: Brain (Titanium clip for brain aneurysm), Orthopedic (Lumbar surgery) and Other (Left upper lung resection 2022, right lung biopsy, right lower lobe wedge resection with mediastinal lymph node dissection April 15, 2025)
Patient has exhibited threatening behavior?: No
Social History
Tobacco: Non-smoker
Alcohol: None
Drug: None
Personal:
Living: with family
Employment: Retired
Family History
Family History: Other (Noncontributory)
Phy Exam
Physical Exam
Physical Exam:
GENERAL: 69-year-old woman appears her stated age, awake but moderately lethargic, moderately tachypneic. Opens her eyes to verbal stimuli and answers yes/no questions appropriately.
EYE: pupils equal and reactive. anicteric
NECK: Supple, nontender, no meningismus, no significant adenopathy.
ENT: BiPAP mask in place.
CARDIAC: Regular rhythm, tachycardic. no murmur.
LUNGS: Moderate respiratory distress, moderately decreased breath sounds right base, fine rales and rhonchi right mid lung field as well as scant rales left base. No wheezing. Equal excursion bilaterally.
ABDOMEN: Rotund, soft, nondistended, without focal tenderness, normoactive BS.
NEUROLOGICAL: Awake, moderately lethargic, opens her eyes to verbal stimuli and answers simple yes/no questions appropriately, no focal neuro deficits.
SKIN: Cool and mildly diaphoretic, mildly ashen in color, ecchymotic patches lower abdomen appear to be related to Lovenox injections, skin intact. No rash.
MUSCULOSKELETAL: No C/C/E. peripheral pulses are full and equal b/l. No palpable tenderness.
PSYCH: Normal and appropriate interaction.
Scores
Heart Failure Risk
Heart Failure Risk Score: Yes
History of Stroke or TIA: No
History of intubation for respiratory distress: No
Heart rate on ED arrival >/= 110: Yes
SaO2 <90% on arrival on room air: Yes
HR >/=110 during 3min walk test (or too ill to perform test): Yes
ECG has acute ischemic changes: No
Urea >/=12mmol/L (BUN 33.6mg/dL): No
Serum CO2>/=35mmol/L: No
Troponin I or T elevated to SD Level (0.4mg/dL): No
NT-proBNP >/=5,000ng/L (5,000pg/ml): No
HF Risk Score: 3
Admission Status: HIGH RISK 15.9% Consider SNF treatment or admission to hospital
Course
Orders/Labs/Results
Orders:
Orders
04/25/25 00:55
Portable Chest Xray [CR Chest Portable - 1 View] Stat
Comment:
Reason For Exam: resp distress
Reason Study Needs to be Portable: Patient Unstable
04/25/25 00:56
Electrocardiogram (*1) Urgent
Reason for Study: Other
Other Reason for Exam: Respiratory Distress
Cardiac Monitoring- Treatment ONCE
EKG- Treatment ONCE
IV Insert/Care/Rem.- Treatment PRN
O2 Therapy [RESP] Urgent
Titrate/Wean O2 to maintain O2 sat greater than (%): 93
Special Instructions: TO MAINTAIN CONTINUOUS O2 SATS >/= 93%
Pulse Ox/cont/shift [RESP] Urgent
Quantity: 1
Special Instructions: continuous pulse ox
04/25/25 01:06
ABG [Arterial Blood Gas] Urgent
%Oxygen/Room Air: 100% BIPAP 12/02
B-Hydroxybutyrate Urgent
Comment: ADDED
Complete Blood Count/With Diff Urgent
Comprehensive Metabolic Panel Urgent
Manual Differential Urgent
NT-proBNP Urgent
Troponin I Urgent
04/25/25 01:07
Urinalysis Reflex To Culture Urgent
04/25/25 01:19
Lactate Level [Lactic Acid] Urgent
Venous Blood Gas Urgent
%Oxygen/Room Air: 12/02 100% Bipap
04/25/25 01:20
0.9% Sodium Chloride 1000 ml [Nss] 1,000 ml IV BOLUS
04/25/25 02:02
Add On- LAB Urgent
Tests Added?: serum acetone
04/25/25 02:05
0.9% Sodium Chloride 1000 ml [Nss] 1,000 ml IV BOLUS
04/25/25 02:16
Piperacillin/Tazo 4.5 Gram [Zosyn] 4.5 gram in 100 ml IV NOW
04/25/25 02:20
COVID-19 Antigen Stat
Source: Nasal Swab
Influenza A+B Rapid Molecular Stat
JOE Source: Nasal Swab
Specimen Description:
04/25/25 02:31
Admit/Transfer Patient As Directed
Co-Sign Provider:
Level of Care: Inpatient admission
Assign to:: ICU
Physician / Group: Anastasia
Diagnosis: Acute hypoxic respiratory failure
Reason for Hospitalization: respiratory failure
Expected length of stay greater than two midnights?: Yes
ELOS- Estimated Length of Stay in days: 2
I certify the patient meets the requirements for IP care: Yes
04/25/25 02:32
PRN Pain Medication Management As Directed
May give lesser potent ordered pain med per pt: Yes
preference::
Protocol:: Medication orders for pain may be administered in a
manner that supports deferring to patient preference
when the pt is:
- Requesting an ordered lesser potent pain medication.
Least to most potent pain medications are defined
as: acetaminophen < NSAID < tramadol < opioids
(morphine, oxycodone, hydromorphone).
- Requesting a lesser dose of the same medication IF
ORDERED.
- Requesting a less intrusive route of administration
if both routes are prescribed by the provider (PO <
IV).
04/25/25 02:37
Code Status As Directed
Resuscitation Status: Full Code
04/25/25 03:01
Basic Metabolic Panel Urgent
Magnesium Urgent
Comment: ADD ON
Phosphorus Urgent
Comment: ADD ON
04/25/25 03:04
Lactated Ringers [Lr] 500 ml IV BOLUS
04/25/25 03:33
Blood Culture Q30M
JOE Source: Blood/Venous
Specimen Description:
Blood Culture Q30M
JOE Source: Blood/Venous
Specimen Description:
04/25/25 04:04
Acetaminophen [Tylenol/Feverall] 650 mg RECTAL Q4HPRN PRN
Acetaminophen [Tylenol] 650 mg PO Q4HPRN PRN
Ipratropium/Albuterol Sulfate [Duoneb] 3 ml INH R Q4HPRN PRN
KCl 20 Meq/0.9%Sodchl 1000 ml [NSS with KCL 20 MEQ] 20 meq in 1,000 ml IV 150 mls/hr
Ketorolac [Toradol] 15 mg IV Q8HPRN PRN
Morphine Sulfate 2 mg IV Q4HPRN PRN
Ondansetron Injectable [Zofran] 4 mg IV Q6HPRN PRN
Reg Insulin 100 Units/100 ml [Novolin R Insulin Infusion] 100 units in 100 ml IV PER PROTOCOL
Initial dose in units/hr, then titrate:: 6
04/25/25 04:04
Echo 2D MMode Color/Doppler Routine
Reason for Study: hypoxia and elev trop, eval wall motion & ef for heart failure
Consult Notification Routine
Specialty to Notify: Pulmonary
Diabetes Management by Nurse Practitioner Routine
Consulting Provider: Renea Oviedo
Was provider already notified?: No
Reason for Consult: Insulin Recommendation
PULMONARY CONSULT Routine
Consulting Provider: Aldair Guallpa
Was physician already notified: No
Reason for consult: hypoxic respiratory failure on AVAPS
Legionella Urinary Antigen Routine
JOE Source: Urine
Specimen Description:
Activity As Directed
Activity Level: Out of Bed-Early Mobility
Bedside Glucose Monitoring As Directed
Frequency: Q1H
Intake/ Output As Directed
Frequency: Per unit guidelines
Vital Signs As Directed
Frequency: Per unit guidelines
Weight As Directed
Frequency: Once
Comment: on admission
Ventilator [Non-Invasive Vent Initial Set] [RESP] Routine
Mode: AVAPS-Avg Vol Assured PS
IPAP: 14
Pressure Support (G5 vent only): 6
FIO2: 7
Pt Eval And Treat Routine
Activity Level: With Assistance
DX Deep Vein Thrombosis Video Routine
04/25/25 04:17
MRSA Screen Routine
JOE Source: Nose
Specimen Description:
04/25/25 Breakfast
NPO
Allow oral meds: Yes
Allow clear liquids: Sips of Clears
Complete Blood Count/No Diff IN AM
Glycohemoglobin (HgbA1c) IN AM
Lactic Acid IN AM
Procalcitonin IN AM
If negative, will antibiotics be d/c'd or not started: Yes
Does the patient have renal or hepatic impairment?: No
Any recent (w/in 48 hrs) physiologic stress (CPR, rhabdo): No
Troponin I IN AM
CR Chest - 2 Views IN AM
Comment:
Reason For Exam: respiratory failure
04/25/25 08:00
Fluticasone/Salmeterol 115/21 [Advair Hfa 115/21 Mcg Inhaler] 2 puff INH R BID
Heparin 5,000 units SC Q12
Ipratropium/Albuterol Sulfate [Duoneb] 3 ml INH R QID
Lidocaine [Lidocaine 4% Patch] 1 patch TOPICAL DAILY
Apply Lidocaine patch(s) to:: back
Piperacillin/Tazo 3.375 Gram [Zosyn] 3.375 gram in 50 ml IV Q6H
Rosuvastatin Calcium [Crestor] 40 mg PO DAILY
Abnormal Lab Results
04/25/25 04/25/25 04/25/25
01:06 01:19 03:01
WBC 28.9 H 10^3/uL
(4.8-10.8)
RBC 4.19 L 10^6/uL
(4.20-5.40)
Hgb 11.7 L g/dL
(12.0-16.0)
MCHC 28.7 L g/dL
(33.0-37.0)
RDW 15.0 H %
(11.5-14.5)
Abs Neuts (Manual) 16.1 H 10^3/uL
(1.4-6.5)
Band Neutrophils 10 H %
(0-3)
pH 7.20 L
(7.35-7.45)
pCO2 37 H mmHg
(32-35)
pO2 273 H mmHg
(83-108)
HCO3 14.5 L* mmol/L
(21-28)
ABG O2 Sat (Measured) 99.4 H %
(94-98)
VBG pH 7.08 L*
(7.32-7.43)
VBG pCO2 51 H mmHg
(35-48)
VBG pO2 53 H mmHg
(30-50)
VBG HCO3 15.1 L mmol/L
(22-27)
Carbon Dioxide 14 L* mmol/L 19 L mmol/L
(22-30) (22-30)
Creatinine 1.3 H mg/dL 1.3 H mg/dL
(0.6-1.0) (0.6-1.0)
Glucose 623 H* mg/dl 463 H* mg/dl
(70-99) (70-99)
Lactic Acid 12.3 H* mmol/L
(0.7-2.0)
Phosphorus 6.6 H mg/dl
(2.5-4.5)
Troponin I 0.048 H* ng/ml
Total Protein 5.8 L g/dl
(6.3-8.2)
Albumin 3.3 L g/dl
(3.5-5.0)
B-Hydroxybutyrate 0.38 H mmol/L
(0.02-0.27)
04/25/25 01:06
04/25/25 03:01
Vital Signs
Initial and Last Documented VS:
Initial Vital Signs
BP
118/84
04/25/25 00:57
Last Documented Vital Signs
Temp Pulse Resp BP Pulse Ox
96.9 F L 106 19 91/69 97
04/25/25 05:02 04/25/25 05:02 04/25/25 05:02 04/25/25 05:00 04/25/25 05:02
MDM/Problems Addressed
Differential Diagnosis Includes:
Acute respiratory distress/respiratory failure requiring BiPAP and supplemental oxygen.
Concern for pneumothorax
Pleural effusion
Pneumonia
CHF
COPD
ACS
PE
MDM/Problems Addressed:
Pulse ox markedly improved with BiPAP
Will continue current settings.
Noted to have some substernal chest pain initially upon arrival to the ED which has since resolved. According to has not been complaining of chest pain at least over the past several days but has noted increased shortness of breath over the
past several days.
Prehospital EKG shows sinus tachycardia otherwise unremarkable.
Initial EKG here shows sinus tachycardia at 120, otherwise similar and unchanged from previous EKG December 2024 save for heart rate has increased from 57 to now 120. No evidence of acute ischemic changes.
Portable chest x-ray shows platelike atelectasis right base with global interstitial crowding right lung field, concern for pleural effusion versus infiltrate versus atelectasis right base. There is no pneumothorax.
Initial blood pressure 110-120, now has become somewhat hypotensive at 68 systolic. She remains awake and now more responsive. She is afebrile.
Labs are pending.
Will initiate IV fluid bolus.
To consider CT of the chest/PE study.
*Radiology
Radiology exam reviewed: preliminary read by ED provider (Portable chest x-ray shows right lower lobe platelike atelectasis, focal effusion versus infiltrate. Increased interstitial markings globally within the right hemithorax but no pneumothorax)
*Pulse Oximetry
SaO2: 98
Oxygen Mode of Delivery: BiPAP
Patient hypoxic: yes
*EKG
Interpreted by ED Provider?: Yes
Interpretation: abnormal
Comparison EKG: changes noted (Sinus tachycardia has replaced sinus bradycardia noted December 2024. Otherwise unchanged)
Rate: tachycardiac
Rhythm: sinus
[place]: normal axis
Interval: normal interval
QRS Pattern: normal QRS
Ischemia: no ischemia
*Imaging Scheduler Interpretation
Rate: tachycardiac
Interpretation: abnormal
Rhythm: sinus
*Critical Care Note
Total Time (30-74mins, 75-104mins- exclusive of procedures): 60
comment:
Critical care statement: A total of 60 minutes of critical care time was provided for this patient. This includes management of unstable vital signs, evaluation of the patient at bedside, reviewing the patient's pertinent medical records, discussion
with consultants, review of old EKGs and review of pertinent medical records. This time with separate from time utilized to perform the aforementioned documented procedures
Data Reviewed
Review of Other/Old Records Reveals: Radiology Studies, Operative Reports and Discharge Summary
Source: spouse and ambulance crew
Update Note
Update Note:
Much less tachypneic, resting comfortably.
More responsive.
Sinus tachycardia is improving with IV fluids and hypotension is resolving as well.
Labs notable for markedly elevated white blood cell count of 28.9.
VBG shows metabolic acidosis with mild respiratory acidosis.
Blood sugar significantly elevated at 623. believes that patient has not been compliant with her glimepiride. Unsure if she has been taking her Mounjaro as well. She has been drinking fluids, primarily apple juice.
Creatinine 1.3 which has trended up from her baseline of 1-1.1
Troponin minimally elevated 0.048.
BNP elevated at 1400. No old BNP to compare.
It is reassuring that heart rate and respiratory rate improving with IV fluids. I do not suspect CHF is our main issue.
Concern for DKA versus HHNK.
Will continue an additional liter of normal saline solution, recheck blood sugar. Will likely require initiation of IV insulin at that point.
Due to elevated white blood cell count must consider occult pneumonia, sepsis thus will initiate antibiotics.
Will admit to hospitalist service.
ED Attending Note
-
Portions of this chart may have been created with voice recognition software.� Occasional wrong word or��sound alike� substitutions may have occurred due to the inherent limitations of voice recognition software.
Discharge Plan
Departure
Patient Disposition: Admit
Date of Disposition: 04/25/25
Time of Disposition: 02:14
Admit to: ICU
Admit to doctor: Anastasia
Presentation/result/management discussed w/ accepting MD/DO: Hospitalist
Condition: Serious
Discharge Problem:
Acute hypoxemic respiratory failure, DKA (diabetic ketoacidosis), Severe lactic acidosis, Increased anion gap metabolic acidosis, Elevated troponin, Acute kidney injury
Interventions
Interventions:
*Risk Screen - Suicide Last Done: 04/25/25 01:00
*General Assessment Last Done: 04/25/25 01:00
*Neglect/Abuse Screening Last Done: 04/25/25 01:00
*ED- Fall Risk Assessment Last Done: 04/25/25 01:00
*ED COVID-19 Vaccine History Last Done: 04/25/25 01:00
*ED Influenza Vaccine History Last Done: 04/25/25 01:00
*Nursing Disposition Last Done: 04/25/25 04:20
ED- Cardiac Assessment Last Done: 04/25/25 01:00
ED- Pulmonary Assessment Last Done: 04/25/25 01:00
Discharge Date and Time
Discharge Date/Time: 04/25/25 04:00
[2025-04-25] MEDS: NSS 1000 IV ×3 (01:20→22:17)
--- NOTE | 2025-04-25 01:25 | HPS.HSE ---
Family Physician
-
Family Physician: NOT KNOW UNKNOWN - PT DOES
Chief Complaint
-
Shortness of breath
History of Present Illness
This is a 69-year-old female who has past medical history of lung cancer with a prior left upper lobe resection, recent diagnosis of right lower lobe squamous cell cancer status post wedge resection of the right lower lobe on April 15,
ozw-mvejjjj-urvccjyml diabetes, hypertension, brain aneurysm status post clipping, CVA presenting to the emergency department via EMS for difficulty breathing.
Spouse reported that patient has been having difficulty breathing for about 1 week. She checked a pulse ox at home and over the last week she has dipped down to the 80s at around 86 to 88% and then going up to 93%. She complains of dyspnea on
exertion. She did not have any cough. She had no sinus congestion and sore throat wheezing. Spouse denies any signs of congestion. Patient denies any chest pain. They have had no fevers. There has been no known sick contacts at home. She was
otherwise in the hospital recently for surgery. She had no postoperative complication, chest tube was removed without any complication and she had no pneumothorax at the end of the hospitalization on x-ray.
Spouse also reports that the patient has not been taking transplant hide and glimepiride and she has felt pasty and has been drinking large quantities of juices such as apple juice. Is not aware whether she is polyuric but states that she does not
have urinary frequency.
Per EMS patient was satting 70% on room air when they arrived. She increased to 83% on BiPAP.
On arrival in the emergency department blood pressure was 118/84, temperature was 96.2 with a pulse rate of 113 and a respiratory of 27. He was immediately placed on noninvasive positive pressure ventilation and she had oxygen saturation of 90%.
Initial ABG was 7.0 . ECG with sinus tach at a rate of 119. No acute ST or T wave changes. X-ray shows postoperative changes in the right lower lobe as well as platelike infiltrates/atelectasis on the right lower aspect of the lung. WBC
28.9, hemoglobin 11.7 platelet 363. Electrolytes notable for bicarb of 14, renal creatinine with unchanged from prior at 13 and 1.3 with a blood glucose of 623. AG.
Medical History
Past Medical History
Past Medical History: Reports Other
Additional Past Medical History:
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
Past Surgical History: Reports Other
Additional Past Surgical History:
Brain aneurysm clip, left upper lung resection, Wedge resection of the right right lower lobe tumor and mediastinal lymph node dissection, back surgery
Social History
Tobacco: Former Smoker
Alcohol: None
Drug: None
Personal:
Living: With Family
Family History
Family History: Not pertinent and Other (mom dementia, Father HTN)
Allergies / Home Medications
Allergies reflects when Allergies were last updated in [facility].
Home Medications with original date entered in [facility]
Allergy/Medication List:
Allergies
Allergy/AdvReac Type Severity Reaction Status Date / Time
aspirin AdvReac Nausea / Verified 12/28/24 14:08
Vomiting
erythromycin base AdvReac Nausea / Verified 12/28/24 14:08
Vomiting
NSAIDS (Non-Steroidal AdvReac Nausea / Verified 12/28/24 14:08
Anti-Inflamma Vomiting
Salicylates * AdvReac Nausea / Verified 12/28/24 14:08
Vomiting
Home Medications
acetaminophen 500 mg tablet (Tylenol Extra Strength) 1,000 mg PO BIDPRN PRN mild pain 12/28/24
albuterol sulfate 90 mcg/actuation aerosol inhaler (Ventolin HFA) 2 puff inhalation R Q4HPRN PRN sob 12/28/24
carvedilol 6.25 mg tablet 6.25 mg PO Q12H 12/28/24
ezetimibe 10 mg tablet 10 mg PO DAILY 12/28/24
glimepiride 1 mg tablet 1 mg PO HS 12/28/24
losartan 100 mg tablet 100 mg PO .SEE BELOW PRN high blood pressure 12/28/24
morphine 15 mg tablet,extended release 15 mg PO Q12H 12/28/24
oxycodone 10 mg tablet 10 mg PO Q8H 12/28/24
rosuvastatin 40 mg tablet 40 mg PO DAILY 12/28/24
tirzepatide 5 mg/0.5 mL subcutaneous pen injector (Mounjaro) 5 mg SC RODRIGUEZ 12/28/24
Review of Systems
-
Unable to obtain full review of systems at this time due to: Acuity
Physical Exam
Vital Signs
Vital Signs
Temp Pulse Resp BP Pulse Ox
96.2 F L 113 37 118/84 98
04/25/25 01:12 04/25/25 01:03 04/25/25 01:03 04/25/25 01:03 04/25/25 01:16
Physical Exam
General: Respiratory Distress
HEENT: NormoCephalic, Anicteric, Atraumatic and PERRLA
Respiratory: No Wheezes or Crackles
Cardiac: S1/S2 and Tachycardia
GI: Soft and Non Distended
Rectal: Deferred by Provider
Genito-urinary: Deferred by me
Musculoskeletal: No Clubbing and No Edema
Skin: Warm
Neuro: AO x 3 and Nonfocal/grossly intact
Hematologic/Lymphatic: No Lymphadenopathy
Psych: Intact Judgment/Insight
Data Reviewed
-
Diagnostic Radiology: Image Personally Visualized and interpreted
Medical Tests (Nuc Med, Echo, EKG etc): Image Personally Visualized and interpreted
Lab Data: Labs Reviewed by me
Old Records: Reviewed
Impression/Plan
-
IMPRESSION:
69-year-old female with multiple medical comorbidities most notably recent right lower lobe wedge resection for squamous cell lung cancer presented to the emergency department with acute respiratory distress requiring positive pressure ventilation.
She has right lower lung infiltrates. WBC of 20.9, pH of 7.08 with a pCO2 of 51 on the venous gas. Bicarb is 15. She is tachypneic blood hemodynamically stable at this time with maps greater than 80. After about 30 minutes on AVAPS patient's
respiratory rate has improved from the high 30s to the low 20s. Heart rate is now around 110. She appeared much more comfortable. She did receive midazolam via ems for agitation.
PLAN:
Hypoxic respiratory failure due to pneumonia vs Atelectasis. Acute respiratory acidosis and metabolic acidosis noted as well.
- Admit to ICU
-Continue respiratory support with AVAPS for now, intubate if respiratory rate of patient does not improve on repeat ABG
-Blood cultures
-Started on vancomycin and Zosyn for now
-Check procalcitonin in a.m.
-Check streptococcal urinary antigen
- History of asthma, minimal wheezing at this time, supportive measures with inhaled steroids and prn albuterol/ipratropium
- IV fluids s/p 2.5L Crystalloid, continue IVF as per DKA protocol
- wean AVAPS in am, improved to 7.2/37 after about 1 hour
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
Anion gap metabolic acidosis with some residual respiratory acidosis - Hyperglycemia>600 and AGAP acidosis suggests DKA, AG explained by lactic acidosis of 12. bHB 0.38. Unlikely DKA. The respiratory component mostly resolved with NIPPV (ABG
7.2/37/14).
HHS, blood glucose > 600, recent hx of high sugar intake, sepsis and non-compliance with antidiabetic regimen
- no insulin gtt for HHS not DKA
- aggressive fluid resuscitation
- trend lactate
- IV NS+Kcl (20meq) at 150ml/hr
Troponin elevation - Suspect NIMI in setting of hypoxic respiratory failure and possible PNA, no known h/o CAD. No recent CP.
- trend troponin
- echo
Hypertension
- Hold losartan
- hold Coreg for SBP < 100
Diabetes -
- on insulin gtt
- diabetes [employer] consult
History of CVA
- Continue statin and ezetimibe
Chronic pain
- continue lidocaine patch
- prn toradol
- prn 2mg IV morphine q 2hrs
- restart long acting morphine after respiratory status stabilizes
DVT prophylaxis� heparin sq
CODE STATUS�full code
[2025-04-25 01:26] LABS: Venous Blood Gas B.E. -14.7 mmol/L (-4 to +4); Venous Blood Gas O2 Sat % 78.7 %
[2025-04-25 01:33] LABS: Hematocrit 40.7 % (37.0-47.0); Hemoglobin 11.7 g/dL (12.0-16.0); Mean Corp Hgb Conc. 28.7 g/dL (33.0-37.0); Mean Corpuscular Volume 97.1 fL (81.0-99.0); Platelet Count 363 10^3/uL (130-400); Red Cell Dist. Width 15.0 % (11.5-14.5)
[2025-04-25 01:46] LABS: AST (SGOT) 28 U/L (14-36); Albumin 3.3 g/dl (3.5-5.0); Alkaline Phosphatase 64 U/L (38-126); Blood Urea Nitrogen 13 mg/dl (7-17); Calcium 9.5 mg/dl (8.4-10.2); Carbon Dioxide 14 mmol/L (22-30); Chloride 102 mmol/L (98-107); Estimated Creatinine Clearance 43 ml/min; Glucose 623 mg/dl (70-99); Potassium 4.1 mmol/L (3.5-5.1); Sodium 135 mmol/L (135-145); Total Protein 5.8 g/dl (6.3-8.2); eGFR 44.24
[2025-04-25 01:56] LABS: Troponin I 0.048 ng/ml
[2025-04-25 01:59] LABS: ALT (SGPT) 27 U/L (0-35)
[2025-04-25 02:18] LABS: Absolute Neutrophils -Man Diff 16.1 10^3/uL (1.4-6.5); Platelets Checked Yes
[2025-04-25 02:19] LABS: Normal RBC Morphology Yes; Total Cells Counted 100
[2025-04-25 02:22] LABS: Toxic Granulation Occassional
[2025-04-25] MEDS: ZOSYN 100 IV (02:23)
[2025-04-25 02:34] LABS: B.E. -12.7 mmol/L; O2 Saturation % 99.4 % (94-98); PCO2 37 mmHg (32-35); PO2 273 mmHg (83-108)
[2025-04-25 02:35] LABS: HCO3 14.5 mmol/L (21-28); O2 Therapy 100% BIPAP 16/8
[2025-04-25 02:51] LABS: COVID-19 Antigen Negative (Negative)
[2025-04-25] MEDS: LR 500 IV ×2 (03:10→14:45)
[2025-04-25 03:43] LABS: Blood Urea Nitrogen 14 mg/dl (7-17); Calcium 8.4 mg/dl (8.4-10.2); Carbon Dioxide 19 mmol/L (22-30); Chloride 106 mmol/L (98-107); Estimated Creatinine Clearance 43 ml/min; Glucose 463 mg/dl (70-99); Potassium 4.6 mmol/L (3.5-5.1); Sodium 136 mmol/L (135-145); eGFR 44.24
[2025-04-25] MEDS: VANCOCIN 540 MG IV (03:50)
[2025-04-25 04:23] LABS: Glucose - Point of Care 428 mg/dl (70-99)
--- NOTE | 2025-04-25 04:30 | PTCARENOTE ---
pt admit to ICU from ER, drowsy, arousable to voice, oriented x 3. SR-ST HR 90s-low 100s. B/L AC IV WNL, arrived with vanco infusing. pt on NIV ,adjustments per work list documentation, Sat 97%. bladder scan 0. mouth swabbed, CHG cloths done. care
ongoing.
[2025-04-25 04:34] LABS: APTT 24.8 Sec (23.4-35.0); INR 1.24; PT 15.9 Sec (11.4-14.6)
[2025-04-25 04:46] LABS: Glucose 415 mg/dl (70-99)
[2025-04-25] MEDS: MORPHINE SULFATE 2 MG IV ×4 (04:47→17:34)
[2025-04-25] MEDS: NSS with KCL 20 MEQ 1000 IV (04:48)
[2025-04-25] MEDS: NOVOLIN R INSULIN INFUSION 100 IV (04:48)
[2025-04-25 05:11] LABS: Magnesium 1.7 mg/dl (1.6-2.3)
[2025-04-25 06:47] LABS: Glucose - Point of Care 332 mg/dl (70-99)
--- NOTE | 2025-04-25 06:47 | CON.INTV ---
Addendum entered and electronically signed by Belkis Benson MD 04/25/25 12:02:
Patient seen and examined independently by myself. Resident note reviewed below, agree with assessment and plan
History obtained from the patient but also from daughter
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 She also has a history of stroke with
aneurysm followed by clipping in the distant past. According to patient, symptoms started Friday prior to admission with shortness of breath. Unfortunately she did not present till 04/24. She was found to be saturating 70%. Chest x-ray
revealed possible right sided pneumonia. She was tried on BiPAP, developed hypotension received IV fluids with good response. She was found to have an initial lactate of 12.3, creatinine 1.3. She did not require initiation of pressors and
transferred to ICU for further management.
Presently she feels much improved but on further questioning she appears to be anxious, complaining of dry mouth, wanting to drink. Multiple times throughout the day off NIV lead to rapid shallow breathing placed back on on NIV. We are asked to
help from critical care standpoint
Patient denies any fevers, hemoptysis, diarrhea. She admits to chronic pain, pain when she takes a deep breath near the incision of her prior surgery.
Social history, family history, past medical history reviewed and agreed
Patient clarified that her brain aneurysm clipping was at the age of 31 at [facility]. She was told by her neurology follow-up at [place] that she did not require any follow-up. She has not had any issues since. She denies any bleeding
issues, she has had a colonoscopy in the past
Patient denies any headaches
She does admit to being anxious
Physical exam
She is comfortable on NIV however when taken off NIV, she has some mild rapid shallow breathing. Chest exam with decreased breath sounds right base, no crepitus.
No murmurs, rubs or gallops. Mildly tachycardic
She does have some midepigastric tenderness but this is not consistent, no obvious rebound
She is moving all extremities
Neurologically grossly intact
Data reviewed
ABG initially 7./
Lactate 12.3, creatinine 1.3
EKG with sinus tachycardia, inferior Q-wave per my review
Troponin mildly elevated 0.048, BNP mildly elevated 1410
Hyperglycemia noted, blood sugars greater than 600, anion gap 19
A/P
Complex presentation with multiorgan system abnormality including hypoxia, initial hypotension responding to IV fluids, poor urine output, elevated lactate, metabolic acidemia
Likely combination of DKA/HHNK, with right lower lobe pneumonia, leukocytosis
On further questioning with surgery, patient very difficult pain control issues, chronic pain syndrome noted
Patient describes difficulty taking a deep breath and lethargy. Spoke with daughter at bedside. Unclear why patient did not seek medical attention after initiation of symptoms on Friday prior to admission
Moving forward
Continue with antibiotics for presumed right sided pneumonia. Presently on vancomycin/Zosyn
Infectious disease has been consulted
Covid/Flu negative
Will check streptococcal and Legionella antigen
I am concerned about extent of hypoxia, use of accessory muscles when off NIV
Unclear pulmonary baseline
Check lower extremity Dopplers, check echocardiogram
Patient will be high risk for thromboembolic disease
History of brain aneurysm with clipping at the age of 31, no issues since
Follow-up blood sugars
DVT prophylaxis: Subcutaneous heparin increased to every 8 hours, sequential teds
GI prophylaxis: Will add Pepcid
Reviewed at length with critical care nursing, respiratory care, pharmacy, primary service
Also reviewed briefly with surgery (Dr. Riky Banuelos)
TCCT 45 min
Original Note:
Consultation
Consultation Request
Date/Time Consultation Requested: 04/25/2025, 4:33
Date/Time Consultation Performed: 04/25/2025, 6:30
Requesting Provider: Gayathri Shaw CRNP
Performing Provider: Belkis Benson MD
Reason for Consultation: Acute Hypoxic Respiratory Failure
Medical History
-
Chief Complaint: Shortness of Breath
History of Present Illness:
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
hypertension, brain aneurysm s/p clipping and CVA who presented to the ED via EMS on 04/25/2025 with difficulty breathing ongoing for 1 week.
She had recently been discharged from the hospital on 04/17/2025 following her right lower lobe wedge resection. She had no post-operative complications, chest tube was removed without incident, and X-ray showed no signs of pneumothorax. Per spouse
report, over the course of the week following discharge she was more short of breath with dyspnea on exertion and pulse ox levels of 85-88%. She has also not been taking glimepiride, and has been drinking large quantities of juice. She has been free
of cough, sinus congestion, wheezing, sore throat, chest pain, or fevers by spouse report, though did complain of substernal chest pain which resolved after arrival to the ED.
By EMS report, patient�s O2 saturation was 70% on room air. This increased to 83% on BiPap. Upon arrival in the ED she was placed on noninvasive positive pressure ventilation which improved O2 saturation to 90%. Her BP was initially normal at
118/84, but decreased to 68/34. ABG in the ED revealed a pH of 7.2, bicarbonate of 14.5, CO2 of 37. CBC showed a WBC of 28.9, hemoglobin was 11.7 with hematocrit of 40.7. CMP showed bicarbonate of 14, creatinine of 1.3 (Compared to 1.0-1.1
baseline), glucose of 623, lactic acid of 12.3 Anion gap 19. Troponins increased at 0.048. EKG showed sinus tachycardia with a rate of 119. X-ray of the chest showed ill-defined airspace opacity within the right lung base suspicious for pneumonia.
Presence of small pleural effusion and/or atelectasis is also a consideration.
She was given a 500mL bolus of Lactated Ringers, 2000mLs of normal saline. Her blood pressures were responsive to IV fluids. She was started on insulin, IV Vancomycin and IV Zosyn, and admitted to the ICU for further management.
Today she reports feeling short of breath while laying down, with a tightness in her chest that she attributes to breathing out. She feels as though she is exhaling more than she can breathe in. She reports feeling claustrophobic with her NIV mask.
She is free of fevers, chills, nausea. She does report some generalized abdominal pain.
Past Medical History
Past Medical History: Asthma, Cancer (Lung), HTN, Hypercholesterolemia and NIDDM
Past Surgical History: Other (Brain aneurysm clipping, left lung upper lobe resection (2022), right lobe wedge resection (04/15/2025))
Social History
Tobacco: Former Smoker
Alcohol: None
Drug: None
Personal:
Living: With Family
Family History
Family History: Reviewed & Not Pertinent ((Mom: Dementia; Dad: HTN))
Allergies / Home Medications
Allergies
Allergy/AdvReac Type Severity Reaction Status Date / Time
aspirin Allergy Nausea / Verified 04/25/25 01:26
Vomiting
erythromycin base Allergy Nausea / Verified 04/25/25 01:26
Vomiting
NSAIDS (Non-Steroidal Allergy Nausea / Verified 04/25/25 01:26
Anti-Inflamma Vomiting
Salicylates * Allergy Nausea / Verified 04/25/25 01:26
Vomiting
Home Medications
�Medication �Instructions �Recorded �Confirmed �Last Taken �Type
acetaminophen 500 mg tablet 1,000 mg PO BIDPRN PRN mild pain 12/28/24 04/25/25 04/14/25 16:00 History
(Tylenol Extra Strength)
albuterol sulfate 90 mcg/actuation 2 puff inhalation R Q4HPRN PRN sob 12/28/24 04/25/25 04/15/25 06:00 History
aerosol inhaler (Ventolin HFA)
carvedilol 6.25 mg tablet 6.25 mg PO Q12H Blood Pressure 12/28/24 04/25/25 04/14/25 20:00 History
ezetimibe 10 mg tablet 10 mg PO DAILY@1200 High 12/28/24 04/25/25 04/14/25 12:00 History
Cholesterol
glimepiride 1 mg tablet 1 mg PO HS Diabetes 12/28/24 04/25/25 04/14/25 20:00 History
morphine 15 mg tablet,extended 30 mg PO Q12H Pain 12/28/24 04/25/25 04/14/25 20:00 History
release
oxycodone 10 mg tablet 10 mg PO Q8H Pain 12/28/24 04/25/25 04/14/25 20:00 History
tirzepatide 5 mg/0.5 mL 5 mg SC RODRIGUEZ Diabetes 12/28/24 04/25/25 04/03/25 History
subcutaneous pen injector
(Mounjaro)
lidocaine 5 % topical patch 1 patch topical DAILY back #30 ea 01/01/25 04/25/25 04/14/25 Rx
(Lidoderm)
ergocalciferol (vitamin D2) 1,250 1,250 mcg PO QWEEK 04/08/25 04/25/25 04/10/25 History
mcg (50,000 unit) capsule (Vitamin
D2)
fenofibrate nanocrystallized 145 145 mg PO DAILY 04/08/25 04/25/25 04/14/25 08:00 History
mg tablet
guaifenesin 600 mg tablet, 600 mg PO BID 04/08/25 04/25/25 04/14/25 18:00 History
extended release 12 hr (Mucinex)
ibuprofen 200 mg tablet (Advil) 600 mg PO BID 04/08/25 04/25/25 04/07/25 History
losartan 100 mg tablet 100 mg PO DAILY@1200 04/08/25 04/25/25 04/14/25 12:00 History
fluticasone 250 mcg-salmeterol 50 1 inh inhalation BID 04/15/25 04/25/25 04/15/25 06:00 History
mcg/dose blistr powdr for
inhalation (Advair Diskus)
rosuvastatin 40 mg tablet 40 mg PO DAILY 04/15/25 04/25/25 04/14/25 20:00 History
Review of Systems
-
History Source: Patient
Constitutional: No Symptoms
Respiratory: Trouble Breathing (See HPI)
Cardiac: Chest Pain (See HPI)
Abdomen/GI: Abdominal Pain (Generalized, mild), Nausea (Denies) and Vomiting (Denies)
Vitals / Labs / Diagnostic Testing
Vital Signs
Temp Pulse Resp BP Pulse Ox
96.9 F L 84 20 86/67 97
04/25/25 05:02 04/25/25 06:00 04/25/25 06:00 04/25/25 06:00 04/25/25 06:00
Laboratory Results
04/25/25 04/25/25
01:06 04:17
PT 15.9 H
INR 1.24
APTT 24.8
pH 7.20 L
pCO2 37 H
pO2 273 H
HCO3 14.5 L*
O2 Delivery Level 100% bipap 12/02
Microbiology
04/25/25 02:20 Nasal Swab Influenza Types A & B (JAYSHREE) - Final
Negative for Influenza A & B, NAAT
Negative results must be combined with clinical observations
and patient history.
Nucleic Acid Amplification test (NAAT)performed on the
[employer] platform.
Diagnostic Testing:
Physical Exam
-
HEENT: Normocephalic and Anicteric
Cardiovascular: S1/S2 and Regular Rhythm
Respiratory: Clear and Other (NIV mask in place, (IPAP 14, EPAP 8, Rate 14, O2 40%, I-time 0.80, Rise 2))
GI: Soft and Tender (Midline abdominal tenderness on palpitation, no other abdominal tenderness)
Neurology: Awake and Alert
Skin: Warm, Dry and Good Color
Assessment
-
Assessment:
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
hypertension, brain aneurysm s/p clipping and CVA who presented to the ED via EMS on 04/25/2025 with difficulty breathing ongoing for 1 week found to have a BG of >600 with an anion gap of 19 and lactic acid of 12 who was admitted to the for
acute hypoxic respiratory failure and DKA vs HHS.
Plan:
Acute Hypoxic Respiratory Failure due to Pneumonia vs Atelectasis
Respiratory Acidosis
Right Lower Lobe Squamous Cell Lung Cancer s/p Wedge resection 03/2025
History of Stage IB lung cancer s/p left upper lobe resection in 2022
Per Chest X-ray 04/25: Ill-defined airspace opacity within the right lung base suspicious for pneumonia. Presence of small pleural effusion and/or atelectasis is also a consideration.
Currently on IV Vancomycin and Zosyn
Infectious Disease consulted by admitting team, will appreciate their insight
Follow blood cultures
Follow Procalcitonin, Streptococcal urinary antigen, though unfortunately patient has not yet produced urine
Continue PRN and scheduled inhalers for shortness of breath/wheezing
Ordered ABG
Continue aspiration precautions, keeping head of the bed >30-45 degrees
Will contact surgeon that performed recent wedge resection to provide updates
Hyperosmolar Hyperglycemic State (Likely) vs Diabetic Ketoacidosis (Unlikely)
Non-Insulin Dependent Type 2 Diabetes
Patient with Hyperglycemia with BG of >600, anion-gap metabolic acidosis of 19 (20.8 when corrected for albumin). Notably, Lactic acidosis also 12, and bHB was only mildly elevated at 0.38. HHS seems more likely compared to DKA given other sources
of anion gap acidosis and low bHB
Hemoglobin a1c 8.1% today
S/p 2.5L of IV fluids in the ED, now on NS + KCl 20 meq drip.
Continue Insulin drip. Now that serum glucose has to less than 250, will switch IV fluids to 5% Dextrose with 0.45% NS.
Follow anion gap, glucose, and lactate. Continue to check BMP Q4h and blood glucose Q1h. Will continue on insulin drip for now, plan to check serum osmolality to ensure <320 before transition to SC insulin.
Elevated Troponin
Troponin 0.048 on admission, increased to 0.086
Suspect demand ischemia in the setting of hypoxic respiratory failure
Continue to trend troponin to peak
Echo ordered by admitting team, will follow
Essential Hypertension
Hypotension
Patient with hypotension upon admission, responsive to fluids without Levophed use
Will resume Losartan and CoReg, with hold parameters
Chronic Pain Syndrome
Continue lidocaine patch
Continue PRN Toradol for moderate pain
Currently PRN IV Morphine 2mg Q2H for severe pain, will adjust dosage today
Plan to restart home long acting morphine (30mg Q12h) once respiratory status improves
HOLD Oxycodone 10mg
History of CVA
Continue Rosuvastatin 40mg
[2025-04-25 07:07] LABS: Venous Blood Gas B.E. -7.0 mmol/L (-4 to +4); Venous Blood Gas O2 Sat % 92.6 %
[2025-04-25] MEDS: DUONEB 3 ML INH ×4 (07:17→20:12)
[2025-04-25 07:22] LABS: Hematocrit 34.5 % (37.0-47.0); Hemoglobin 10.3 g/dL (12.0-16.0); Mean Corp Hgb Conc. 29.9 g/dL (33.0-37.0); Mean Corpuscular Volume 94.8 fL (81.0-99.0); Platelet Count 206 10^3/uL (130-400); Red Cell Dist. Width 15.0 % (11.5-14.5)
[2025-04-25 07:47] LABS: Procalcitonin 0.55 ng/ml (0.0-0.25)
[2025-04-25] MEDS: HEPARIN 5000 UNITS SC (07:49)
[2025-04-25] MEDS: ZOSYN 50 IV (07:50)
[2025-04-25 07:52] LABS: Glucose - Point of Care 281 mg/dl (70-99)
[2025-04-25 07:53] LABS: Troponin I 0.086 ng/ml
[2025-04-25] MEDS: LIDOCAINE 4% PATCH 1 PATCH TOPICAL (07:53)
--- NOTE | 2025-04-25 08:10 | PHA.VAN.IN ---
Assessment
- Assessment
Renal Function: SCR Appears Elevated from baseline
Concomitant Antimicrobials: piperacillin/tazobactam
Plan
- Plan
Initial / Loading Dose: 2000mg - 04/25 03:50
Maintenance Regimen: dosing by level
Monitoring: random 04/26 06
Pharmacokinetics Vancomycin I
- -
Patient Age: 69
Patient Sex: Female
Vancomycin Day #: 1
Indication: Pulmonary/Respiratory
Requesting Provider: Dr. Oocnnor
Pertinent Antimicrobial Allergies:
erythromycin - N/V
Height / Weight:
Height 5 ft 2 in
Actual Weight 90.8 kg
Pertinent Past Medical History: BMI ~37, DM
- Vital Signs / Lab Results
Temp Pulse Resp BP Pulse Ox
97.1 F 87 21 95/70 98
04/25/25 07:21 04/25/25 07:19 04/25/25 07:19 04/25/25 07:00 04/25/25 07:19
Lab Results - Hematology
04/25/25 04/25/25
01:06 06:37
WBC 28.9 H 20.2 H
Band Neutrophils 10 H
Lab Results - Chemistry
04/25/25 04/25/25 04/25/25
01:06 03:01 06:00
BUN 13 14 Cancelled
Creatinine 1.3 H 1.3 H Cancelled
Estimated Creat Clear 43 43 Cancelled
Albumin 3.3 L
04/25/25 04/25/25
12:00 18:00
BUN Cancelled Cancelled
Creatinine Cancelled Cancelled
Estimated Creat Clear Cancelled Cancelled
Albumin
04/25/25 04/25/25
01:19 06:37
Lactic Acid 12.3 H* 4.2 H*
Microbiology Results
04/25/25 02:20 Influenza Types A & B (JAYSHREE) - Final
Nasal Swab Negative for Influenza A & B, NAAT
Negative results must be combined with clinical observations
and patient history.
Nucleic Acid Amplification test (NAAT)performed on the
[employer] platform.
[2025-04-25 08:38] LABS: Glucose - Point of Care 261 mg/dl (70-99)
[2025-04-25] MEDS: CRESTOR 40 MG PO (08:51)
[2025-04-25 08:57] LABS: Glycohemoglobin (HgbA1c) 8.1 % (4.0-5.9)
[2025-04-25 09:42] LABS: Glucose - Point of Care 195 mg/dl (70-99)
--- NOTE | 2025-04-25 09:43 | CON.ID ---
Consultation
-
Date/Time Consultation Requested: 04/25/2025 0703
Date/Time Consultation Performed: 04/25/2025 0945
Requesting Provider: Dr. Jacinto
Performing Provider: Dr. Kenney
Reason for Consultation: Clinical sepsis
Chief Complaint / Past History
History of Present Illness
Eula Zazueta is a 69-year-old female with a significant past medical history of
Lung cancer and diabetes bBeing evaluated at the request of Dr. Jacinto in regards to clinical sepsis. History is obtained from chart review, along with patient interview.
The patient presents to [facility] earlier this a.m. following several days of progressive shortness of breath at home. According to the patient's since discharge home on 04/17 she has had poor oral intake. Yesterday she had
increasing shortness of breath, with pulse ox in the 80s with a home monitoring unit. She denied any cough or congestion. No history of chest pain. No known sick contacts. She denies any fevers at home. She denies any recent travel. She has 1
dog and 2 cats as pets; none have been sick.
Workup in the ER showed possible infiltrate in the right lower lobe. White count was noted to be elevated at 28K. Additionally, lactate was 12.3, procalcitonin was elevated (although patient did have a mild degree of renal insufficiency) and
glucose was found to be markedly elevated. The patient has been started on empiric antibiotics, and Infectious Diseases is asked to comment on further antibiotic management.
Past History
Additional Past Medical History:
Asthma
Lung cancer (squamous cell CA)
Hx CVA (aneurysm)
HTN
HLD
NIDDM
Chronic back pain
Narcotic dependence
Nephrolithiasis
Additional Past Surgical History:
Cerebral aneurysm clipping
Lumbar spinal surgery
Left upper lung resection (2022)
Right lower lobe wedge resection/mediastinal lymph node dissection (March 2025)
Allergy History:
aspirin Allergy (Verified 04/25/25 01:26)
Nausea / Vomiting
erythromycin base Allergy (Verified 04/25/25 01:26)
Nausea / Vomiting
NSAIDS (Non-Steroidal Anti-Inflamma Allergy (Verified 04/25/25:26)
Nausea / Vomiting
Salicylates * Allergy (Verified 04/25/25:)
Nausea / Vomiting
Medications Reviewed: Yes
Current Antibiotics:
Zosyn 3.375 gm IV q.6 hours
Vancomycin (dosing per pharmacy)
Social History
Tobacco: Non-Smoker
Alcohol: None
Drug: None
Personal:
Living: With Family
Employment: Retired
Family History
Family History: Not Pertinent
Review of Systems
Review of Systems
General: Chills; Negative Fever
HEENT: Negative Stiff Neck or Sinus Problems
Respiratory: Dyspnea; Negative Cough or Hemoptysis
Gasteroenterology: Negative Weight Loss, Nausea or Vomiting
Endocrine: Weakness and Fatigue
Vital Signs
Temp Pulse Resp BP Pulse Ox
97.1 F 87 21 95/70 97
04/25/25 07:21 04/25/25 07:19 04/25/25 07:19 04/25/25 07:00 04/25/25 08:00
Physical Exam
Physical Exam
Constitutional: Comfortable, Acutely Ill, Non-toxic and Obese
Head: Normocephalic
Eyes: Pupils Equal, Pupils Round, No Conjunctival Hemorrhage and Sclera Anicteric
Oral: No Thrush and No Ulcers
Cardiovascular: Regular Rate and S1/S2; Negative S3/S4
Pulmonary: Coarse and Other (BiPAP in place.); Negative Wheezes or Rales
Gastrointestinal: Soft, Non Tender and Non Distended
Extremities: Negative Edema, Cyanosis or Erythema
Skin: Warm and Dry; Negative Rash or Jaundice
Neurological: Awake and Alert
Psychological: Calm
Lab / Diagnostic Study Results
04/25/25 06:37
Total Counted 100 04/25/25 01:06
Abs Neuts (Manual) 16.1 10^3/uL (1.4-6.5) H 04/25/25 01:06
Segmented Neutrophils 46 % (42-75) 04/25/25 01:06
Band Neutrophils 10 % (0-3) H 04/25/25 01:06
Lymphocytes (Manual) 31 % (20-51) 04/25/25 01:06
Eosinophils (Manual) 1 % (0-6) 04/25/25 01:06
PT 15.9 Sec (11.4-14.6) H 04/25/25 04:17
INR 1.24 04/25/25 04:17
Lactic Acid 4.2 mmol/L (0.7-2.0) H* 04/25/25 06:37
Procalcitonin 0.55 ng/ml (0.0-0.25) H 04/25/25 06:37
Microbiology Results
Micro:
04/25/25 04:17 Nasal Screen MRSA (PCR) - Final
Nose MRSA not detected - performed by PCR methodology.
04/25/25 03:33 Blood Culture - Pending
Blood/Venous
04/25/25 03:33 Blood Culture - Pending
Blood/Venous
04/25/25 02:20 Influenza Types A & B (JAYSHREE) - Final
Nasal Swab Negative for Influenza A & B, NAAT
Negative results must be combined with clinical observations
and patient history.
Nucleic Acid Amplification test (NAAT)performed on the
[employer] platform.
Assessment / Plan
Right-sided pneumonia
Leukocytosis
Hypoxemic respiratory failure; currently on BiPAP
Hyperglycemia
Lactic acidosis
Elevated troponin
Bacteriuria
Asthma
Lung cancer
Hx CVA (aneurysm)
HTN
HLD
NIDDM
Chronic back pain
Narcotic dependence
Hx nephrolithiasis
Recommendations:
Case discussed with Critical care.
MRSA screen negative; discontinue further vancomycin.
Transition Zosyn to cefepime.
Add Azithromycin for atypical coverage.
Follow pending blood cultures.
Legionella urinary antigen pending. Will order urine pneumococcal antigen also.
Continue with supportive measures.
Monitor white count and temperature curve.
Check sputum culture if able to give sample.
Follow CXR.
Further recommendations as additional data is returned.
Patient critically ill in intensive care unit
Care Review
Plan reviewed with: Physician (Critical Care)
--- NOTE | 2025-04-25 09:44 | W.PN.HOSP.TC ---
Today's Communication/Plan
-
f/w ICU doctor recommendations
IV Abx
Insulin Tx
Holding BP medications
Assessment / Plan
Assessment / Plan
Physical Exam
General: Using Bipap for Respiratory Distress
HEENT: Normocephalic, Atraumatic
Respiratory: Limited with rales at bases
Cardiac: S1/S2
GI: Soft and Non Distended
Genito-urinary: No Spicer
Musculoskeletal: No Clubbing and No Edema
Skin: Warm
Neuro: AO x 3 and Nonfocal/grossly intact
Psych: calm, Intact Judgment/Insight
# Acute Hypoxic respiratory failure due to pneumonia vs Atelectasis requiring assisted ventilation
Acute respiratory acidosis and metabolic acidosis
She feels better but still sob
-Continue respiratory support with AVAPS for now, might need intubation
-Blood cultures
-Started on vancomycin and Zosyn for now
-Elevated procalcitonin
- Negative COVID & Flu
- History of asthma, minimal wheezing at this time, supportive measures with inhaled steroids and prn albuterol/ipratropium
- Pulmonary/wheel grinder consultation
Anion gap metabolic lactic acidosis with some residual respiratory acidosis - Hyperglycemia>600 and AGAP acidosis suggests DKA, AG explained by lactic acidosis of 12. bHB 0.38. Unlikely DKA. The respiratory component mostly resolved with NIPPV (ABG
7.2/).
HHS, blood glucose > 600, recent hx of high sugar intake, sepsis and non-compliance with antidiabetic regimen
- no insulin gtt for HHS not DKA
- aggressive fluid resuscitation
- trend lactate
- IV NS+Kcl (20meq) at 150ml/hr
# S/P Wedge Resection of the Right Lower Lobe Lung Cancer & Mediastinal Lymph Node Dissection by Dr Banuelos 04/15
# Troponin elevation c/w non ischemic troponin elevation due to hypoxia
no known h/o CAD. No recent CP.
- trend troponin
- echo of heart is ordered
# Sepsis POA/ Septic shock
Hx of Hypertension
- Hold losartan
- hold Coreg for SBP < 100
Diabetes / DKA-
- on insulin gtt
- diabetes PASSENGER BRAKEMAN consult
History of CVA
- Continue statin and ezetimibe
Chronic pain
- continue lidocaine patch
- prn toradol
- prn 2mg IV morphine q 2hrs
- restart long acting morphine after respiratory status stabilizes
DVT prophylaxis� heparin sq
CODE STATUS�full code
Total time spent to see the patient, examined the patient, review data and lab result, discuss treatment plan with patient, nursing staff, consultants around 55 minutes
Anticipated Discharge: > 48 hours
Subjective/Interval History
-
Date of Service: April 25, 2025
She feels SOB/ heaviness but overall better than before
No abdominal pain
Objective Data
-
Labs:
Laboratory Results
04/25/25 04/25/25 04/25/25
01:06 03:01 04:17
WBC 28.9 H
Hgb 11.7 L
Hct 40.7
Plt Count 363
PT 15.9 H
INR 1.24
APTT 24.8
HCO3 14.5 L*
Sodium 135 136
Potassium 4.1 4.6
Chloride 102 106
Carbon Dioxide 14 L* 19 L
BUN 13 14
Creatinine 1.3 H 1.3 H
Glucose 623 H* 463 H* 415 H
Calcium 9.5 8.4
Total Bilirubin 0.5
AST 28
ALT 27
Alkaline Phosphatase 64
04/25/25 04/25/25 04/25/25
06:00 06:37 08:00
WBC 20.2 H
Hgb 10.3 L
Hct 34.5 L
Plt Count 206 D
PT
INR
APTT
HCO3
Sodium Cancelled Pending
Potassium Cancelled Pending
Chloride Cancelled Pending
Carbon Dioxide Cancelled Pending
BUN Cancelled Pending
Creatinine Cancelled Pending
Glucose Cancelled Pending
Calcium Cancelled Pending
Total Bilirubin
AST
ALT
Alkaline Phosphatase
04/25/25 04/25/25 04/25/25
12:00 12:00 12:00
WBC
Hgb
Hct
Plt Count
PT
INR
APTT
HCO3
Sodium Cancelled Pending
Potassium Cancelled Pending
Chloride Cancelled
Carbon Dioxide
BUN
Creatinine
Glucose
Calcium
Total Bilirubin
AST
ALT
Alkaline Phosphatase
04/25/25 04/25/25 04/25/25
12:00 12:00 12:00
WBC
Hgb
Hct
Plt Count
PT
INR
APTT
HCO3
Sodium
Potassium
Chloride Pending
Carbon Dioxide Cancelled Pending
BUN Cancelled Pending
Creatinine Cancelled
Glucose
Calcium
Total Bilirubin
AST
ALT
Alkaline Phosphatase
04/25/25 04/25/25 04/25/25
12:00 12:00 12:00
WBC
Hgb
Hct
Plt Count
PT
INR
APTT
HCO3
Sodium
Potassium
Chloride
Carbon Dioxide
BUN
Creatinine Pending
Glucose Cancelled Pending
Calcium Cancelled Pending
Total Bilirubin
AST
ALT
Alkaline Phosphatase
04/25/25 04/25/2504/25/25
16:00 18:00 20:00
WBC
Hgb
Hct
Plt Count
PT
INR
APTT
HCO3
Sodium Pending Cancelled Pending
Potassium Pending Cancelled Pending
Chloride Pending Cancelled Pending
Carbon Dioxide Pending Cancelled Pending
BUN Pending Cancelled Pending
Creatinine Pending Cancelled Pending
Glucose Pending Cancelled Pending
Calcium Pending Cancelled Pending
Total Bilirubin
AST
ALT
Alkaline Phosphatase
Vital Signs:
Vital Signs
Temp Pulse Resp BP Pulse Ox
97.1 F 87 21 95/70 97
04/25/25 07:21 04/25/25 07:19 04/25/25 07:19 04/25/25 07:00 04/25/25 08:00
I&O
04/24/25 04/25/25 04/26/25
06:59 06:59 06:59
Intake Total 1811 513 / 513
Balance 1811 513 / 513
[2025-04-25] MEDS: D5/0.45%NACL 1000 IV ×3 (10:12→23:03)
[2025-04-25 10:16] LABS: B.E. -4.4 mmol/L; HCO3 21.0 mmol/L (21-28); O2 Saturation % 99.3 % (94-98); PCO2 39 mmHg (32-35); PO2 97 mmHg (83-108)
[2025-04-25 10:41] LABS: Glucose - Point of Care 228 mg/dl (70-99)
[2025-04-25] MEDS: MAGNESIUM SULFATE 50 IV (10:49)
[2025-04-25 10:52] LABS: Urine Character Slightly Cloudy (Clear)
[2025-04-25 11:17] LABS: Urine Red Blood Cell 0-2 /HPF (0-2)
--- NOTE | 2025-04-25 11:20 | PTCARENOTE ---
bedside us of legs completed
[2025-04-25] MEDS: COREG PO ×2 (11:33→20:03)
[2025-04-25 11:41] LABS: Glucose - Point of Care 227 mg/dl (70-99)
[2025-04-25] MEDS: HEPARIN 7300 UNITS IV (12:03)
[2025-04-25] MEDS: HEPARIN 25000 UNITS/250 ML IV (12:05)
[2025-04-25] MEDS: ZITHROMAX INFUSION 250 IV (12:12)
--- NOTE | 2025-04-25 12:30 | PTCARENOTE ---
Systems reviewed. Pt attempted on HiFlow nasal cannula, sats adequate, mild increased wob but after a couple of minutes, pt reeported she couldn't breathe and was placed back on NIV. BMP sent multiple times and hemolyzed. Dr Benson aware. Nayan
with minimal drainage since placement as charted. IVF, insulin continue. Mag rider infusing as ordered. Family at bedside and updated by MD.
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
[2025-04-25 12:41] LABS: Glucose - Point of Care 261 mg/dl (70-99)
[2025-04-25] MEDS: PRECEDEX 100 IV (13:11)
[2025-04-25] MEDS: MAXIPIME 1000 MG IV ×2 (13:11→21:01)
[2025-04-25] MEDS: STERILE WATER FOR INJECTION 10 ML IV ×2 (13:12→21:01)
[2025-04-25 13:39] LABS: Glucose - Point of Care 258 mg/dl (70-99)
--- NOTE | 2025-04-25 13:44 | PTCARENOTE ---
Pt continues to be restless/anxious saying she can't breathe despite standing morphine. Precedex added and pt currently resting comfortably.
--- NOTE | 2025-04-25 14:04 | PN.DE.MGMTRT ---
Insulin Management
- -
04/25/2025: Diabetes Management Consult
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
Lymph Node Dissection by Dr Banuelos 04/15.
Pt developed sx of SOB on Friday prior to admission and did not present till 04/24. She was found to be saturating at 70%. Chest x-ray revealed possible right sided pneumonia. She was tried on BiPAP, developed hypotension received IV fluids with
good response.
Pt is unable to interview, currently on NIV, No family at bedside, information obtained from chart review
Was taking Glimepiride 1mg daily @ HS and Mounjaro 5 on Sundays. Of note pt had stopped taking her diabetes medication.
Glucose was 623 on admission. A1C 8.1%, Cr 1.3, eGFR 44.24. She was found to have Anion GAP Metabolic lactic acidosis with some residual respiratory acidosis.
She has been initiated on insulin gtt. Glucose range is 195 to 332, requiring 2-6 units of insulin/hr.
Will reassess in AM for readiness to transition of insulin infusion
Discussed with Nurse. Will cont to follow
#
Diabetes History
- -
Type of Diabetes: 2
Pre-Admission Diabetes Regimen
04/25/25 04/25/25 04/25/25
01:06 03:01 06:00
Creatinine 1.3 H 1.3 H Cancelled
04/25/25 04/25/25 04/25/25
09:46 10:37 11:08
Creatinine Cancelled Cancelled Cancelled
04/25/25 04/25/25
12:00 18:00
Creatinine Cancelled Cancelled
Lab Results
Hemoglobin A1c 8.1 % (4.0-5.9) H 04/25/25 06:37
Insulin Pump Settings
IP Diabetes Regimen
04/25/25 04/25/25 04/25/25
01:06 03:01 04:12
Glucose 623 H* 463 H*
POC Glucose 428 H
04/25/25 04/25/25 04/25/25
04:17 06:00 06:36
Glucose 415 H Cancelled
POC Glucose 332 H
04/25/25 04/25/25 04/25/25
07:41 08:26 09:31
Glucose
POC Glucose 281 H 261 H 195 H
04/25/25 04/25/25 04/25/25
09:46 10:30 10:37
Glucose Cancelled Cancelled
POC Glucose 228 H
04/25/25 04/25/25 04/25/25
11:08 11:30 12:00
Glucose Cancelled Cancelled
POC Glucose 227 H
04/25/25 04/25/25 04/25/25
12:29 13:28 18:00
Glucose Cancelled
POC Glucose 261 H 258 H
Patient Education
[2025-04-25 14:47] LABS: Glucose - Point of Care 224 mg/dl (70-99)
[2025-04-25] MEDS: MORPHINE SULFATE IV ×2 (15:00→22:17)
--- NOTE | 2025-04-25 15:07 | PTCARENOTE ---
BP low after precedex initiated, urine output has still not improved. Dr Benson aware. Fluid bolus ordered and infusing.
[2025-04-25 15:21] LABS: Blood Urea Nitrogen 17 mg/dl (7-17); Calcium 8.3 mg/dl (8.4-10.2); Carbon Dioxide 18 mmol/L (22-30); Chloride 111 mmol/L (98-107); Estimated Creatinine Clearance 39 ml/min; Glucose 232 mg/dl (70-99); Potassium 4.6 mmol/L (3.5-5.1); Sodium 135 mmol/L (135-145); eGFR 40.47
[2025-04-25 15:50] LABS: Glucose - Point of Care 207 mg/dl (70-99)
--- NOTE | 2025-04-25 16:30 | PTCARENOTE ---
Pt has now been transitioned to high flow 80%/55l, sats low to mid 90s. tolerating sips of clears. at bedside.
[2025-04-25 16:37] LABS: Glucose - Point of Care 212 mg/dl (70-99)
[2025-04-25] MEDS: TYLENOL 650 MG PO (17:36)
[2025-04-25 17:43] LABS: Glucose - Point of Care 178 mg/dl (70-99)
[2025-04-25 18:40] LABS: Glucose - Point of Care 196 mg/dl (70-99)
[2025-04-25 18:54] LABS: APTT 170.6 Sec (23.4-35.0)
[2025-04-25 19:48] LABS: Glucose - Point of Care 173 mg/dl (70-99)
[2025-04-25] MEDS: PULMICORT 0.5 MG INH (20:12)
[2025-04-25] MEDS: REMOVE LIDOCAINE PATCH 1 PATCH REMOVE (20:58)
[2025-04-25 21:17] LABS: Glucose - Point of Care 178 mg/dl (70-99)
[2025-04-25 22:16] LABS: Glucose - Point of Care 176 mg/dl (70-99)
--- NOTE | 2025-04-25 22:42 | PTCARENOTE ---
Pt received start of shift, HR SR on telemetry. HFNC 80L 55%, POX 94%. Breathing labored, tachypneic. RT at bedside - pt agreeable to BiPAP overnight. Settings initially 14/8 50%. POX 96-98%. Pt UO very decreased - QUARRYING MANAGER aware, 1L bolus ordered and
administered. IV gtts infusing as ordered/charted in worklist. Coreg held - see MAR. Call vidal within reach.
[2025-04-25 23:17] LABS: Glucose - Point of Care 182 mg/dl (70-99)
[2025-04-26] VITALS (53 sets, daily range): BP systolic 66–127; BP diastolic 43–112; BMI 39.1
[2025-04-26 00:11] LABS: Glucose - Point of Care 167 mg/dl (70-99)
[2025-04-26] MEDS: MORPHINE SULFATE IV (01:09)
[2025-04-26] MEDS: OFIRMEV 100 IV ×3 (01:13→17:37)
[2025-04-26 01:15] LABS: Glucose - Point of Care 178 mg/dl (70-99)
--- NOTE | 2025-04-26 01:41 | PTCARENOTE ---
Pt continues to be tachypneic with increased work of breathing. POX 96%. Drowsy. Temp elevated, pt unable to take PO d/t WOB. Pt adamantly refusing rectal feverall, WHARF TENDER HEAD aware - one time dose ofirmev ordered and administered (see MAR)
[2025-04-26] MEDS: MORPHINE SULFATE 2 MG IV ×4 (02:12→09:17)
[2025-04-26 02:28] LABS: Venous Blood Gas B.E. -6.2 mmol/L (-4 to +4); Venous Blood Gas O2 Sat % 99.2 %
--- NOTE | 2025-04-26 02:29 | PTCARENOTE ---
Addendum entered by Deshawn Saleem RN 04/26/25 02:31:
Pt states CP subsiding post morphine administration
Original Note:
Pt used call vidal to inform RN of 01/06 pain in center of chest. Pt described pain as a 'pressure'. EKG completed. STEAMFITTER at bedside, labs drawn and sent. CXR obtained. Scheduled morphine dose administered.
[2025-04-26 02:45] LABS: Glucose - Point of Care 183 mg/dl (70-99)
[2025-04-26 02:48] LABS: APTT 132.5 Sec (23.4-35.0)
[2025-04-26 03:00] LABS: Hematocrit 25.1 % (37.0-47.0); Hemoglobin 7.6 g/dL (12.0-16.0); Mean Corp Hgb Conc. 30.3 g/dL (33.0-37.0); Mean Corpuscular Volume 93.3 fL (81.0-99.0); Platelet Count 175 10^3/uL (130-400); Red Cell Dist. Width 15.6 % (11.5-14.5)
[2025-04-26 03:06] LABS: Troponin I 0.074 ng/ml
[2025-04-26 03:45] LABS: Blood Urea Nitrogen 17 mg/dl (7-17); Calcium 7.8 mg/dl (8.4-10.2); Carbon Dioxide 18 mmol/L (22-30); Chloride 110 mmol/L (98-107); Estimated Creatinine Clearance 32 ml/min; Glucose 166 mg/dl (70-99); Magnesium 2.1 mg/dl (1.6-2.3); Potassium 4.5 mmol/L (3.5-5.1); Sodium 135 mmol/L (135-145); eGFR 32.06
--- NOTE | 2025-04-26 03:51 | PTCARENOTE ---
Pt stated she was 'tired of the mask' and requesting to be placed back on HFNC. TT RT, pt placed on HFNC. About 30-40 minutes later, pt used call vidal. Pt very anxious and informed RN 'I can't breathe, I can't breathe'. Requesting bipap be placed
back on. Bipap on. Reinforced respiratory teaching in regards to diagnosis with pt
[2025-04-26 04:21] LABS: Glucose - Point of Care 181 mg/dl (70-99)
[2025-04-26 05:13] LABS: Glucose - Point of Care 187 mg/dl (70-99)
[2025-04-26] MEDS: D5/0.45%NACL 1000 IV (05:21)
[2025-04-26] MEDS: MAXIPIME 1000 MG IV ×3 (05:23→20:59)
[2025-04-26] MEDS: STERILE WATER FOR INJECTION 10 ML IV ×3 (05:23→20:59)
[2025-04-26] MEDS: NOVOLIN R INSULIN INFUSION 100 IV (05:50)
[2025-04-26] MEDS: HEPARIN 25000 UNITS/250 ML IV ×2 (05:50→10:33)
--- NOTE | 2025-04-26 05:58 | PTCARENOTE ---
Levo gtt to maintain MAP>65
[2025-04-26 06:17] LABS: Glucose - Point of Care 198 mg/dl (70-99)
--- NOTE | 2025-04-26 06:39 | W.PN.INTV ---
Addendum entered and electronically signed by Belkis Benson MD 04/26/25 12:40:
Patient seen and examined independently by myself. Agree with assessment and plan as outlined below by resident
Patient remains critically ill. Marginal blood pressure noted, requiring norepinephrine currently at 4 mg. Drop in hemoglobin noted, no evidence of active bleeding. Chest x-ray with worsening right sided infiltrate. Lactate improving.
Echocardiogram with normal biventricular function. Low-grade fever noted overnight
On exam, patient is awake and alert, moving all extremities. She gets agitated and anxious with the mask at times
Chest exam with decreased breath sounds of the right base, crackles right lung greater than left, no crepitus
Right posterior apical chest incision intact
Data reviewed
Chest x-ray with increased right infiltrate, likely component of effusion
White count trending down to 15.6
Creatinine is increased to 1.7
A/P
Patient with complex clinical situation and multisystem organ dysfunction
Drop in hemoglobin likely dilutional, will transfuse 1 unit
Follow for bleeding
Continue heparin therapy for thromboembolic disease
Check right chest ultrasound for significant effusion. If present will request thoracentesis
Respiratory status remains tenuous
Maintain NIV for now
We will check ABG later today
Hypotension noted
We will start stress dose steroids
Patient likely has required steroids in the past. Patient was hospitalized twice in the last 3 months according to for sepsis
Follow-up blood sugars
Remains on insulin drip. Transition to glycemic protocol
continue norepinephrine, maintain MAP greater than 65
PICC line
Fluid status noted, +5.5 L in the last 24 hours
Hold IV fluids
Continue with pressors for now, maintain maps greater than 65
Check renal ultrasound
Nephrology evaluation
Transition from morphine to Dilaudid
Antibiotics continue, remains on azithromycin/cefepime
White count improving
ID following
was updated at length at bedside 04/26 by myself
Remains critical situation with complex decision making
Reviewed with critical care nursing, respiratory care, pharmacy
Reviewed with primary service
TCCT 40 min
Original Note:
Today's Communication / Plan
Recommendations
STOP Morphine
START Dilaudid 2mg Q4h, 0.5mg Q4hPRN for moderate pain, 1.0mg Q4hPRN for severe pain
Tylenol 1g Q6h
Kidney and Chest US
Nephrology Consult
Hemoglobin/ABG this afternoon
Stress dose Hydrocortisone 50mg x20 doses
Transfuse 1 unit pRBCs
Assessment
-
Assessment:
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
hypertension, brain aneurysm s/p clipping and CVA who presented to the ED via EMS on 04/25/2025 with difficulty breathing ongoing for 1 week found to have a BG of >600 with an anion gap of 19 and lactic acid of 12 who was admitted to the [facility] for
acute hypoxic respiratory failure and DKA vs HHS.
Plan:
Acute Hypoxic Respiratory Failure due to Pneumonia vs Atelectasis
Respiratory Acidosis
Right Lower Lobe Squamous Cell Lung Cancer s/p Wedge resection 03/2025
History of Stage IB lung cancer s/p left upper lobe resection in 2022
Per Chest X-ray 04/25: Ill-defined airspace opacity within the right lung base suspicious for pneumonia. Presence of small pleural effusion and/or atelectasis is also a consideration. Chest X-ray this AM shows worsened airspace opacity
Currently on Azithromycin and Cefepime
Infectious Disease consulted by admitting team, will appreciate their insight
Follow blood cultures
Continue PRN and scheduled inhalers for shortness of breath/wheezing
Ordered ABG for this afternoon
Ordered ultrasound of right chest
Ordered stress dose hydrocortisone 50 x 20 doses
Continue aspiration precautions, keeping head of the bed >30-45 degrees
Provided updates to surgeon that performed recent wedge resection yesterday
Hyperosmolar Hyperglycemic State (Likely) vs Diabetic Ketoacidosis (Unlikely)
Non-Insulin Dependent Type 2 Diabetes
Patient with Hyperglycemia with BG of >600, anion-gap metabolic acidosis of 19 (20.8 when corrected for albumin). Notably, Lactic acidosis also 12, and bHB was only mildly elevated at 0.38. HHS seems more likely compared to DKA given other sources
of anion gap acidosis and low bHB
Hemoglobin a1c 8.1% today
S/p 2.5L of IV fluids in the ED, now on NS + KCl 20 meq drip.
Continue Insulin drip. Now that serum glucose has to less than 250, will switch IV fluids to 5% Dextrose with 0.45% NS.
Follow anion gap, glucose, and lactate. Continue to check BMP Q4h and blood glucose Q1h. Will continue on insulin drip for now, plan to check serum osmolality to ensure <320 before transition to SC insulin
Acute Anemia
Suspect dilutional over blood loss given volume of IV fluids she has received
Consent obtained on 04/26
Transfuse 1 unit pRBCs today
Repeat hemoglobin at 4pm
Ordered ultrasound of right chest
Acute Kidney Injury
Patient's creatinine 1.7 today, increased from baseline of 1.0-1.1
She has also been producing little urine despite IV fluid therapy
Ordered US of Kidneys
Continue fam for Is and Os
Consulted Nephrology today, will appreciate their insight into her case
Elevated Troponin
Troponin 0.048 on admission, increased to 0.086, downtrending to 0.074 today
Suspect demand ischemia in the setting of hypoxic respiratory failure
Echo 04/25: Normal left ventricular size and systolic function with LV ejection fraction visually estimated 60 to 65% and mild LVH. Estimated pulmonary artery systolic pressure 52 mmHg assuming a right atrial pressure of 10 mmHg. No pericardial
effusion. Prominent anterior fat pad present.
Essential Hypertension
Hypotension
Patient with hypotension upon admission, responsive to fluids without Levophed use
Will resume Losartan and CoReg, with hold parameters
Chronic Pain Syndrome
Continue lidocaine patch
Continue PRN Toradol for moderate pain
STOP IV Morphine in light of new JOHNNY
Start dilaudid 2mg Q4h scheduled, 0.5mg Q4h PRN for moderate pain, 1mg Q4hPRN for severe pain
Start Tylenol 1g Q6H
Start rectal bisacodyl PRN for constipation as prophylaxis given narcotic pain medications
HOLD Oxycodone 10mg
History of CVA
Continue Rosuvastatin 40mg
Subjective Dataa
Subjective Data
Date of Service:
Date of Service: April 26, 2025
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
Subjective:
Patient still wearing NIV when I arrived. She had some severe back pain earlier this AM, reportedly 20 out of 10, now down to 8 out of 10 after administration of morphine. She continues to feel short of breath.
Review of Systems
General: Pain
Cardiopulmonary: Dyspnea
GI: Abdominal Pain (Denies) and Nausea (Denies)
Neuro: Headache (Denies)
Genitourinary: Fam
Objective Data
Data Reviewed
Vital Signs / I&O / Oxygen:
Vital Signs
Temp Pulse Resp BP Pulse Ox
100.2 F 78 25 105/63 93
04/26/25 04:45 04/26/25 07:34 04/26/25 07:00 04/26/25 07:34 04/26/25 07:00
Intake and Output
04/25/25 04/26/25 04/27/25
06:59 06:59 06:59
Intake Total 1811 5858.3 / 6029.4 171.1 / 171.1
Output Total 362 / 387
Balance 1811 5496.3 / 5642.4 146.1 / 146.1
SaO2 [NIV (Non Invasive 96
Ventilation)]
SaO2 93
Nasal Cannula flow liters per 50
minute
Physical Exam
HEENT: Normocephalic and Anicteric
Cardiovascular: S1-S2 and Regular Rhythm
Respiratory: Crackles (Right middle and lower lobe prominent crackles) and Other (NIV (IPAP 14, EPAP 8, FiO2 40%, Rate 12, I time 0.85.). Patient respirations closer to 25-30 breaths per minute)
Neurology: Awake and Alert
Skin: Warm, Dry and Good Color
Labs/Micro/Reports
Lab Data
04/26/25 06:44
04/26/25 02:21
Laboratory Results
04/25/25 04/25/25 04/25/25
10:08 11:40 18:26
APTT Cancelled 170.6 H*
pH 7.34 L
pCO2 39 H
pO2 97
HCO3 21.0
O2 Delivery Level Not Reportable
04/26/25
02:21
APTT 132.5 H
pH
pCO2
pO2
HCO3
O2 Delivery Level
Microbiology
04/25/25 03:33 Blood/Venous Blood Culture - Preliminary
No Growth in 24 hours- Final report to follow
04/25/25 03:33 Blood/Venous Blood Culture - Preliminary
No Growth in 24 hours- Final report to follow
04/25/25 10:37 Urine Streptococcus pneumoniae Antigen (M - Final
Negative for Streptococcus pneumoniae antigen.
A negative result does not exclude infection with
Streptococcus pneumoniae. Clinical correlation is
recommended.
04/25/25 10:37 Urine Legionella Urinary Antigen - Final
Negative for Legionella pneumophila Serogroup 1 antigen.
A negative result does not rule out the possiblity of
Legionella infection due to other serogroups or species of
Legionella. Clinical correlation is recommended.
04/25/25 04:17 Nose Nasal Screen MRSA (PCR) - Final
MRSA not detected - performed by PCR methodology.
04/25/25 02:20 Nasal Swab Influenza Types A & B (JAYSHREE) - Final
Negative for Influenza A & B, NAAT
Negative results must be combined with clinical observations
and patient history.
Nucleic Acid Amplification test (NAAT)performed on the
[employer] platform.
[2025-04-26 06:56] LABS: Hemoglobin 7.3 g/dL (12.0-16.0)
[2025-04-26 07:23] LABS: Glucose - Point of Care 205 mg/dl (70-99)
[2025-04-26] MEDS: CRESTOR PO (07:34)
[2025-04-26] MEDS: COREG PO (07:34)
[2025-04-26] MEDS: LIDOCAINE 4% PATCH 1 PATCH TOPICAL (07:35)
[2025-04-26] MEDS: DUONEB 3 ML INH ×4 (07:39→19:46)
[2025-04-26] MEDS: PULMICORT 0.5 MG INH ×2 (07:39→19:46)
--- NOTE | 2025-04-26 07:48 | PTCARENOTE ---
recd 0715 handoff and walking rounds with previous shift. glucose noted, insulin gtt adjusted. repositioned, c/o 'severe' back pain, 20/10 scale, med as noted see MAR. positioned to side. sacral foam removed for lidoderm patch to help with back
pain. presently on side, tolerating bipap on V60. aeration fair posterior, 1/3 crackles bilat. urine output noted. seen by Dr Jacinto. Pending transfusion when blood available. Oral meds held at this time; BP meds held per parameters. L AC IV
sites with small amount oozing from site but no increase at this time. PICC order noted.
--- NOTE | 2025-04-26 08:16 | VNURNOTE ---
Chart reviewed. Patient is current with [facility]. Will continue to follow hospital course and DC plans.
[2025-04-26 08:22] LABS: Glucose - Point of Care 187 mg/dl (70-99)
--- NOTE | 2025-04-26 09:08 | PTOTSP ---
P.T. was ordered in the ED on 04/25. Reviewed chart and noted pt's hgb dropped significantly overnight to 7.3 and is now ordered 2 units of blood for transfusion. Will hold P.T. evaluation today.
[2025-04-26 09:26] LABS: Glucose - Point of Care 187 mg/dl (70-99)
--- NOTE | 2025-04-26 09:34 | W.PN.HOSP.TC ---
Addendum entered and electronically signed by Magdaleno Jacinto MD 04/26/25 12:45:
Acute right and left peroneal vein DVT
Original Note:
Today's Communication/Plan
-
.
Assessment / Plan
Assessment / Plan
Physical Exam
General: Using Bipap for Respiratory Distress
HEENT: Normocephalic, Atraumatic
Respiratory: Limited with rales at bases
Cardiac: S1/S2
GI: Soft and Non Distended
Genito-urinary: No Spicer
Musculoskeletal: No Clubbing and No Edema
Skin: Warm
Neuro: AO x 3 and Nonfocal/grossly intact
Psych: calm, Intact Judgment/Insight
# Acute Hypoxic respiratory failure due to pneumonia vs Atelectasis requiring assisted ventilation
Acute respiratory acidosis and metabolic acidosis
Still on Bipap
-Continue respiratory support with AVAPS for now, might need intubation
-Blood culture No growth
-Started on vancomycin and Zosyn for now then on Cefepime & Zithromax.
-Elevated procalcitonin
- Negative COVID & Flu . MRSA screen is negative
- History of asthma, minimal wheezing at this time, supportive measures with inhaled steroids and prn albuterol/ipratropium
- Appreciate pulmonary/ ID help
Anion gap metabolic lactic acidosis with some residual respiratory acidosis - Hyperglycemia>600 and AGAP acidosis suggests DKA, AG explained by lactic acidosis of 12. bHB 0.38. Unlikely DKA. The respiratory component mostly resolved with NIPPV (ABG
7.2//14).
HHS, blood glucose > 600, recent hx of high sugar intake, sepsis and non-compliance with antidiabetic regimen
- no insulin gtt for HHS not DKA
- s/p aggressive fluid resuscitation
# CKD IIIB
GFR around baseline
Holding Losartan
Monitor for retention, treat anemia/ low BP
# S/P Wedge Resection of the Right Lower Lobe Lung Cancer & Mediastinal Lymph Node Dissection by Dr Banuelos 04/15
# Anemia of chronic disease due to underlying CKD stage IIIb
chronic anemia ( HGB around 10 in December 2024) acute on chronic anemia with mild acute blood loss anemia postsurgery
Will transfuse 2 units of blood. Patient signed consent.
# chronic pain syndrome with opioid dependency
Acute on chronic pain
# Troponin elevation c/w non ischemic troponin elevation due to hypoxia
no known h/o CAD. No recent CP.
- trend troponin is down
- echo of heart: Normal left ventricular size and systolic function with LV ejection fraction visually estimated 60 to 65% and mild LVH.
# Sepsis POA/ Septic shock
Hx of Hypertension
- Hold losartan
- hold Coreg for SBP < 100
Diabetes / DKA-
- on insulin gtt
- diabetes PUMP SERVICER HELPER consult
History of CVA
- Continue statin and ezetimibe
DVT prophylaxis� heparin sq
CODE STATUS�full code
Total time spent to see the patient, examined the patient, review data and lab result, discuss treatment plan with patient, nursing staff, consultants around 55 minutes
Anticipated Discharge: > 48 hours
Subjective/Interval History
-
Date of Service: April 26, 2025
She has pain in her back
Still on Bi Pap
Objective Data
-
Labs:
Laboratory Results
04/26/25 04/26/25 04/26/25
02:21 06:44 10:00
WBC 15.6 H
Hgb 7.6 L D 7.3 L
Hct 25.1 L
Plt Count 175
APTT 132.5 H Pending
Sodium 135
Potassium 4.5
Chloride 110 H
Carbon Dioxide 18 L
BUN 17
Creatinine 1.7 H
Glucose 166 H
Calcium 7.8 L
Vital Signs:
Vital Signs
Temp Pulse Resp BP Pulse Ox
100.0 F 74 24 105/63 96
04/26/25 08:08 04/26/25 07:50 04/26/25 07:50 04/26/25 07:34 04/26/25 08:00
I&O
04/25/25 04/26/25 04/27/25
06:59 06:59 06:59
Intake Total 1811 5858.3 / 6036.9 544.3 / 544.3
Output Total 362 / 387 85 / 85
Balance 1811 5496.3 / 5649.9 459.3 / 459.3
--- NOTE | 2025-04-26 10:07 | PN.DE.MGMTRT ---
Insulin Management
- -
04/26/2025: Diabetes Management Consult Follow up
Patient admitted with c/o increasing SOB since Friday, 04/20. 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
wedge Resection & Mediastinal Lymph Node Dissection by Dr Banuelos 04/15. On admission she was found to be saturating at 70%. Chest x-ray revealed possible right sided pneumonia. She was tried on BiPAP, developed hypotension received IV fluids with good
response. NEW finding of R & L peroneal vein DVT. Prior to admission was taking Glimepiride 1mg daily @ HS and Mounjaro 5 on Sundays. Of note pt had stopped taking her diabetes medication. A1C 8.1%, Cr 1.7, eGFR 32.06 today.
Pt is unable to interview, currently on NIV, information obtained from chart review and patients nurse.
Glucose was 623 on admission. She was found to have Anion GAP Metabolic lactic acidosis with some residual respiratory acidosis. Was started on DKA insulin infusion. GAP has now closed but patient will be started on IV steroids 50 mg IV Q 6
hours. Plan to transition from DKA insulin infusion to Critical Care glycemic protocol with target of 140 to 180. Discussed with nurse transition.
Will cont to follow
Diabetes History
- -
Type of Diabetes: 2
Pre-Admission Diabetes Regimen
04/25/25 04/25/25 04/25/25
09:46 10:37 11:08
Creatinine Cancelled Cancelled Cancelled
04/25/25 04/25/25 04/25/25
13:27 16:00 20:00
Creatinine 1.4 H Cancelled Cancelled
04/26/25
02:21
Creatinine 1.7 H
Lab Results
Hemoglobin A1c 8.1 % (4.0-5.9) H 04/25/25 06:37
Insulin Pump Settings
IP Diabetes Regimen
04/25/25 04/25/25 04/25/25
09:46 10:30 10:37
Glucose Cancelled Cancelled
POC Glucose 228 H
04/25/25 04/25/25 04/25/25
11:08 11:30 12:29
Glucose Cancelled
POC Glucose 227 H 261 H
04/25/25 04/25/25 04/25/25
13:27 13:28 14:35
Glucose 232 H
POC Glucose 258 H 224 H
04/25/25 04/25/25 04/25/25
15:38 16:00 16:26
Glucose Cancelled
POC Glucose 207 H 212 H
04/25/25 04/25/25 04/25/25
17:32 18:27 19:37
Glucose
POC Glucose 178 H 196 H 173 H
04/25/25 04/25/25 04/25/25
20:00 21:05 22:05
Glucose Cancelled
POC Glucose 178 H 176 H
04/25/25 04/26/25 04/26/25
23:06 00:00 01:03
Glucose
POC Glucose 182 H 167 H 178 H
04/26/25 04/26/25 04/26/25
02:21 02:34 04:10
Glucose 166 H
POC Glucose 183 H 181 H
04/26/25 04/26/25 04/26/25
05:01 06:06 07:12
Glucose
POC Glucose 187 H 198 H 205 H
04/26/25 04/26/25
08:11 09:15
Glucose
POC Glucose 187 H 187 H
Patient Education
[2025-04-26] MEDS: PRECEDEX 100 IV ×2 (10:33→19:38)
[2025-04-26 10:34] LABS: Glucose - Point of Care 198 mg/dl (70-99)
[2025-04-26 10:42] LABS: APTT 59.7 Sec (23.4-35.0)
[2025-04-26] MEDS: NOVOLOG FLEXPEN SC ×2 (11:20→16:20)
[2025-04-26] MEDS: DILAUDID 2 MG IV ×3 (11:28→20:59)
[2025-04-26] MEDS: SOLU-CORTEF 50 MG IV ×2 (11:28→17:38)
[2025-04-26] MEDS: HEPARIN 7300 UNITS IV (11:37)
--- NOTE | 2025-04-26 11:54 | W.PN.ID1 ---
Date of Service
Date of Service: April 26, 2025
Today's Communication
Continue current antibiotics.
Assessment / Plan
Right-sided pneumonia
Leukocytosis
Hypoxemic respiratory failure; currently on BiPAP
Bilateral DVTs
Hyperglycemia
Lactic acidosis
Elevated troponin
Bacteriuria
Asthma
Lung cancer
Hx CVA (aneurysm)
HTN
HLD
NIDDM
Chronic back pain
Narcotic dependence
Hx nephrolithiasis
Recommendations:
Case discussed with Critical care.
Continue cefepime and Azithromycin.
Follow pending blood cultures; 04/25 blood culture with gram-positive bacilli; likely contaminant
Legionella and pneumococcal antigens negative
Continue with supportive measures.
Monitor white count and temperature curve.
Check sputum culture if able to give sample.
Follow CXR.
Patient remains critically ill in intensive care unit
Chief Complaint
-: Leukocytosis
Subjective / Review of Systems
Patient seen and examined. Remains on BiPAP at the present time.
Review of Systems: No Fever
Vital Signs / Physical Exam
Vital Signs
Vital Signs
Temp Pulse Resp BP Pulse Ox
100.0 F 73 27 125/86 95
04/26/25 10:20 04/26/25 11:27 04/26/25 11:27 04/26/25 10:20 04/26/25 11:27
Physical Exam
Constitutional: Comfortable, Chronically Ill, Non-toxic and Obese
Eyes: Sclera Anicteric
Cardiovascular: Regular Rate and S1/S2; Negative S3/S4
Pulmonary: Clear; Negative Wheezes or Rales
Gastrointestinal: Soft
Neurological: Awake and Alert
Objective Data
Lab Data
Lab Results
04/26/25 02:21
PT 15.9 Sec (11.4-14.6) H 04/25/25 04:17
INR 1.24 04/25/25 04:17
APTT 59.7 Sec (23.4-35.0) H 04/26/25 10:23
Estimated Creat Clear 32 ml/min 04/26/25 02:21
Lactic Acid 2.4 mmol/L (0.7-2.0) H 04/26/25 06:44
Total Bilirubin 0.5 mg/dl (0.2-1.3) 04/25/25 01:06
AST 28 U/L (14-36) 04/25/25 01:06
ALT 27 U/L (0-35) 04/25/25 01:06
Alkaline Phosphatase 64 U/L (38-126) 04/25/25 01:06
Most recent labs reviewed.
Micro Results:
04/25/25 03:33 Blood Culture - Preliminary
Blood/Venous Positive culture in progress
Gram Stain - Preliminary
04/25/25 10:37 Urine Culture - Final
Urine NO GROWTH
04/25/25 03:33 Blood Culture - Preliminary
Blood/Venous No Growth in 24 hours- Final report to follow
04/25/25 10:37 Streptococcus pneumoniae Antigen (M - Final
Urine Negative for Streptococcus pneumoniae antigen.
A negative result does not exclude infection with
Streptococcus pneumoniae. Clinical correlation is
recommended.
04/25/25 10:37 Legionella Urinary Antigen - Final
Urine Negative for Legionella pneumophila Serogroup 1 antigen.
A negative result does not rule out the possiblity of
Legionella infection due to other serogroups or species of
Legionella. Clinical correlation is recommended.
04/25/25 04:17 Nasal Screen MRSA (PCR) - Final
Nose MRSA not detected - performed by PCR methodology.
04/25/25 02:20 Influenza Types A & B (JAYSHREE) - Final
Nasal Swab Negative for Influenza A & B, NAAT
Negative results must be combined with clinical observations
and patient history.
Nucleic Acid Amplification test (NAAT)performed on the
[employer] platform.
Imaging:
08/27/2024 CXR (portable): volume loss in the right hemithorax. Worsening aeration of the right lung compared to prior chest x-ray. Minimal linear opacity at the left lung base. Please see full dictation for additional detail.
Chest X-Ray: Image Reviewed and Report Reviewed
Care Review
Plan reviewed with: Physician (Resident)
[2025-04-26 11:58] LABS: Glucose - Point of Care 183 mg/dl (70-99)
[2025-04-26] MEDS: ZITHROMAX INFUSION 250 IV (12:02)
--- NOTE | 2025-04-26 12:29 | PN.CDI ---
CDI
- -
CDI:
Physician Documentation Request
Admit Date: 04/25/25 03:14
Dear Doctor Ophelia,
Please review the following and provide your response in the progress notes.
Clinical Indicators:
04/25 87 PROCEDURE: US Periph Venous LOWER Ext Jm
#FINDINGS:
#...RIGHT leg:
#...nonocclusive thrombus within the right peroneal vein.
#...The common femoral, femoral, and popliteal veins are compressible and patent.
#...LEFT leg:
#...occlusive thrombus within the left peroneal vein.
#...The common femoral, femoral, and popliteal veins are compressible and patent.
#IMPRESSION:
#...Thrombus identified within BOTH peroneal veins.
Based on the above and your clinical assessment, please clarify the appropriate diagnosis and acuity, that supports the above abnormalities and additional evaluation, monitoring and/or treatment rendered:
Acute right and left peroneal vein DVT
Chronic right and left peroneal vein DVT
Acute on Chronic right and left peroneal DVT
Other(please specify)
Use of terms such as suspected, likely, concern for, or probable (associated with a specific diagnosis that is being evaluated, monitored, or treated as if it exists) are acceptable and can be coded in the inpatient setting, when documented at the
time of discharge.
Thank you,
Ya Pena RN BSN CCDS
CDI Specialist
Please contact via tiger text
Please use your independent medical judgment in providing your response.
[2025-04-26 12:54] LABS: Glucose - Point of Care 180 mg/dl (70-99)
--- NOTE | 2025-04-26 13:10 | PTCARENOTE ---
blood infused. gtts noted. resting unless disturbed, tolerating bipap on the V60. Transitioned to glycemic protocol after discussion with Diabetic JOB PLACEMENT OFFICER. See documentation. Explained to pt and about transition to dilaudid and ofirmev
scheduled as well. Presently asleep when observed.
[2025-04-26 13:52] LABS: Glucose - Point of Care 164 mg/dl (70-99)
--- NOTE | 2025-04-26 14:03 | W.CON.NEPH ---
Consultation
-
Date/Time Consultation Requested: 04/18/2025 12 PM
Date/Time Consultation Performed: 04/18/2025 2 PM
Requesting Provider: Dr. Benson
Performing Provider: Dr. Washington
Reason for Consultation: JOHNNY
Medical History
-
Chief Complaint: JOHNNY
History of Present Illness:
69-year-old female with recent lung cancer status post right lower lobe wedge resection April 15, 2025 for squamous cell lung cancer. Also with diabetes mellitus type 2 on Mounjaro therapy who recently discontinued oral medications at the
direction of endocrinology. She has hypertension controlled on a multidrug regimen. She came to emergency room because of difficulty breathing over 1 week which had worsened. She has dyspnea on exertion. There were no fevers. On admission she
was hypotensive and sent to the ICU. She was placed on pressors. She was also hyperglycemic. This was felt to be HHNK given only minimal elevation of ketones. She was treated with insulin drip as well as IV fluids. Respiratory status worsened
with worsening right lung exam and right sided infiltrate on x-ray with large effusion. Creatinine which has begun around 1.0 has now risen up to 1.7 representing acute kidney injury. She remains nonoliguric. She has a nongap acidosis. She is
currently critically ill in the ICU.
Past Medical History
Asthma
lung cancer (Stage IB left upper lobe cancer, resected in 2022), (RLL tumor (Sq. cell) s/p Wedge resection of the right right lower lobe tumor and mediastinal lymph node dissection 04/15/2025)
CVA
hypertension
DM2
Brain aneurysm clip
left upper lung resection
Wedge resection of the right right lower lobe tumor and mediastinal lymph node dissection
back surgery
Social History
Tobacco: Former Smoker
Alcohol: None
Family History
Family History: Not Pertinent
Allergies / Home Medications
Allergy/AdvReac Type Severity Reaction Status Date / Time
aspirin Allergy Nausea / Verified 04/25/25 01:26
Vomiting
erythromycin base Allergy Nausea / Verified 04/25/25 01:26
Vomiting
NSAIDS (Non-Steroidal Allergy Nausea / Verified 04/25/25 01:26
Anti-Inflamma Vomiting
Salicylates * Allergy Nausea / Verified 04/25/25 01:26
Vomiting
�Medication �Instructions �Recorded �Confirmed �Type
acetaminophen 500 mg tablet 1,000 mg PO BIDPRN PRN mild pain 12/28/24 04/25/25 History
(Tylenol Extra Strength)
albuterol sulfate 90 mcg/actuation 2 puff inhalation R Q4HPRN PRN sob 12/28/24 04/25/25 History
aerosol inhaler (Ventolin HFA)
carvedilol 6.25 mg tablet 6.25 mg PO Q12H Blood Pressure 12/28/24 04/25/25 History
ezetimibe 10 mg tablet 10 mg PO DAILY@1200 High 12/28/24 04/25/25 History
Cholesterol
glimepiride 1 mg tablet 1 mg PO HS Diabetes 12/28/24 04/25/25 History
morphine 15 mg tablet,extended 30 mg PO Q12H Pain 12/28/24 04/25/25 History
release
oxycodone 10 mg tablet 10 mg PO Q8H Pain 12/28/24 04/25/25 History
tirzepatide 5 mg/0.5 mL 5 mg SC RODRIGUEZ Diabetes 12/28/24 04/25/25 History
subcutaneous pen injector
(Mounjaro)
lidocaine 5 % topical patch 1 patch topical DAILY back #30 ea 01/01/25 04/25/25 Rx
(Lidoderm)
ergocalciferol (vitamin D2) 1,250 1,250 mcg PO QWEEK Supplement 04/08/25 04/25/25 History
mcg (50,000 unit) capsule (Vitamin
D2)
fenofibrate nanocrystallized 145 145 mg PO DAILY High Cholesterol 04/08/25 04/25/25 History
mg tablet
guaifenesin 600 mg tablet, 600 mg PO BID Congestion 04/08/25 04/25/25 History
extended release 12 hr (Mucinex)
ibuprofen 200 mg tablet (Advil) 600 mg PO BID Pain 04/08/25 04/25/25 History
losartan 100 mg tablet 100 mg PO DAILY@1200 Blood Pressure 04/08/25 04/25/25 History
fluticasone 250 mcg-salmeterol 50 1 inh inhalation BID 04/15/25 04/25/25 History
mcg/dose blistr powdr for Lung/Breathing Issues
inhalation (Advair Diskus)
rosuvastatin 40 mg tablet 40 mg PO DAILY High Cholesterol 04/15/25 04/25/25 History
Physical Exam
Vital Signs
Vital Signs
Temp Pulse Resp BP Pulse Ox
100.3 F 82 24 87/65 95
04/26/25 13:00 04/26/25 13:00 04/26/25 13:00 04/26/25 13:00 04/26/25 13:00
Lab Results
WBC 15.6 10^3/uL (4.8-10.8) H 04/26/25 02:21
RBC 2.69 10^6/uL (4.20-5.40) L 04/26/25 02:21
Hct 25.1 % (37.0-47.0) L 04/26/25 02:21
Plt Count 175 10^3/uL (130-400) 04/26/25 02:21
Sodium 135 mmol/L (135-145) 04/26/25 02:21
Potassium 4.5 mmol/L (3.5-5.1) 04/26/25 02:21
Chloride 110 mmol/L (98-107) H 04/26/25 02:21
Carbon Dioxide 18 mmol/L (22-30) L 04/26/25 02:21
BUN 17 mg/dl (7-17) 04/26/25 02:21
Creatinine 1.7 mg/dL (0.6-1.0) H 04/26/25 02:21
eGFR 32.06 04/26/25 02:21
Glucose 166 mg/dl (70-99) H 04/26/25 02:21
Calcium 7.8 mg/dl (8.4-10.2) L 04/26/25 02:21
Phosphorus 6.6 mg/dl (2.5-4.5) H 04/25/25 03:01
Sqd-S-Prqwleyqakz Pept 1410 pg/ml 04/25/25 01:06
Albumin 3.3 g/dl (3.5-5.0) L 04/25/25 01:06
Laboratory Tests
04/16/25 04/25/25 04/25/25
05:33 01:06 10:37
Creatinine 1.1 H
Lactic Acid
Ur Specific [place] 1.020
Ur Occult Blood Reflex Negative
Leukocyte Esterase Rfl 1+ A
Urine Bacteria (Reflex) Moderate A
Urine Glucose 3+ A
Urine Albumin (Reflex) 3+ A
B-Hydroxybutyrate 0.38 H
04/26/25
06:44
Creatinine
Lactic Acid 2.4 H
Ur Specific [place]
Ur Occult Blood Reflex
Leukocyte Esterase Rfl
Urine Bacteria (Reflex)
Urine Glucose
Urine Albumin (Reflex)
B-Hydroxybutyrate
Renal ultrasound 04/26/2025
The right kidney measures 13.2 cm in length. Multiple anechoic cysts measure up to 3.2 cm in diameter.
The left kidney measures 12.8 cm in length. Anechoic cyst measures 3.6 cm in diameter.
Color Doppler imaging demonstrates intact blood flow to each kidney.
1. No hydronephrosis on either side.
2. Bilateral simple renal cysts.
Data Reviewed
-
Radiology: Image Personally Visualized and interpreted (Chest x-ray 04/18/2025 by my reading large left sided airspace disease with near whiteout)
Ultrasound: Report Reviewed by me
Labs: Labs Reviewed by me
Old Records: Reviewed
Assessment/Plan
-
Assessment
JOHNNY
Hypotension
Right side lung infiltrate, effusion
Chronic pain syndrome
Sepsis
Diabetes mellitus type 2, hyperglycemia
Bilateral peroneal vein DVT
Anemia
Lung cancer status post right lower lobe wedge resection 04/15/2025, left upper lobe wedge resection 2022
History of stroke, brain aneurysm status post clipping
Lactic acidosis
Plan
Maintain mean arterial pressure greater than 65. I am in no sparks to wean pressor therapy
Continue antibiotics per ID
Lasix 80 mg IV now
Will try to keep I's and O's slightly negative if possible
Follow BMP
Check FEna
Maintain Spicer
Follow hemoglobin post transfusion this morning
Heparin drip for DVT
Follow lactate
Check LFTs
Discussed with patient and the possibility of dialysis in the future if renal function continues to worsen. They understand
Critical care time spent 40 minutes
[2025-04-26 14:04] LABS: B.E. -9.4 mmol/L; HCO3 16.3 mmol/L (21-28); O2 Saturation % 98.8 % (94-98); PCO2 34 mmHg (32-35); PO2 98 mmHg (83-108)
--- NOTE | 2025-04-26 14:11 | PTCARENOTE ---
c/o Bipap mask, resp notified, to come evaluate fit. ABG drawn by resp, results to providers. Resp here, teeth brushed while short break from bipap. ice chip and sip of water offered. took/swallowed easily, returned to previous resp device.
explained rationale to pt and family, they understand. Presently Dr. Washington is bedside. Levophed titrations as noted.
[2025-04-26] MEDS: LASIX 80 MG IV (14:47)
[2025-04-26 14:55] LABS: Glucose - Point of Care 165 mg/dl (70-99)
--- NOTE | 2025-04-26 15:10 | PTCARENOTE ---
lasix given, family bedside, updated. hands swollen, rings removed after compression and baby shampoo, given to family. Urine labs obtained and sent.
--- NOTE | 2025-04-26 15:27 | CM ---
PNA, hx lung cancer with wedge resections, Hgb today 7.3, following renal function, IV/Zithromax,Cefepime, Solu-Cortef, Heparin. Discharge POC: Awaiting therapy eval and rec when patient is medically stable for evaluation.
[2025-04-26 16:05] LABS: Glucose - Point of Care 179 mg/dl (70-99)
--- NOTE | 2025-04-26 18:03 | PTCARENOTE ---
I/O collected. No distress. labs drawn and sent. Tolerating bipap. resting/sleeping when observed post last dose of pain meds and ofirmev currently infusing.
[2025-04-26 18:09] LABS: Glucose - Point of Care 186 mg/dl (70-99)
[2025-04-26 18:11] LABS: Hemoglobin 9.1 g/dL (12.0-16.0)
[2025-04-26 18:33] LABS: APTT 176.8 Sec (23.4-35.0)
[2025-04-26 18:58] LABS: ALT (SGPT) 57 U/L (0-35); AST (SGOT) 157 U/L (14-36); Albumin 2.9 g/dl (3.5-5.0); Alkaline Phosphatase 61 U/L (38-126); Total Protein 5.6 g/dl (6.3-8.2)
[2025-04-26 19:02] LABS: Hematocrit 29.7 % (37.0-47.0)
[2025-04-26 19:05] LABS: Glucose - Point of Care 172 mg/dl (70-99)
[2025-04-26 19:08] LABS: Glucose 179 mg/dl (70-99); LDH 369 U/L (120-246)
[2025-04-26] MEDS: REMOVE LIDOCAINE PATCH 1 PATCH REMOVE (20:59)
--- NOTE | 2025-04-26 21:00 | PTCARENOTE ---
Pt tolerating Bipap settings and is satting at 96% pulse ox.
[2025-04-26 21:17] LABS: Glucose - Point of Care 198 mg/dl (70-99)
[2025-04-26 22:11] LABS: Glucose - Point of Care 191 mg/dl (70-99)
[2025-04-26 23:13] LABS: Glucose - Point of Care 173 mg/dl (70-99)
[2025-04-27] VITALS (43 sets, daily range): BP systolic 72–153; BP diastolic 55–112; PULSE 39–96; O2SAT 97–99; BMI 39.7
[2025-04-27] MEDS: LEVOPHED 250 IV (00:09)
[2025-04-27] MEDS: SOLU-CORTEF 50 MG IV ×5 (00:09→23:41)
[2025-04-27] MEDS: OFIRMEV 100 IV ×2 (00:13→05:18)
[2025-04-27] MEDS: DILAUDID 2 MG IV ×3 (00:13→08:17)
[2025-04-27 01:12] LABS: Glucose - Point of Care 180 mg/dl (70-99)
[2025-04-27 03:22] LABS: Glucose - Point of Care 149 mg/dl (70-99)
[2025-04-27 05:04] LABS: Hematocrit 28.6 % (37.0-47.0); Hemoglobin 9.0 g/dL (12.0-16.0); Mean Corp Hgb Conc. 31.5 g/dL (33.0-37.0); Mean Corpuscular Volume 92.0 fL (81.0-99.0); Platelet Count 207 10^3/uL (130-400); Red Cell Dist. Width 16.5 % (11.5-14.5)
[2025-04-27 05:15] LABS: Glucose - Point of Care 161 mg/dl (70-99)
[2025-04-27 05:18] LABS: APTT 141.0 Sec (23.4-35.0)
[2025-04-27] MEDS: STERILE WATER FOR INJECTION 10 ML IV ×3 (05:18→22:29)
[2025-04-27] MEDS: MAXIPIME 1000 MG IV ×3 (05:18→22:29)
[2025-04-27 05:43] LABS: Blood Urea Nitrogen 21 mg/dl (7-17); Calcium 8.7 mg/dl (8.4-10.2); Carbon Dioxide 17 mmol/L (22-30); Chloride 107 mmol/L (98-107); Estimated Creatinine Clearance 36 ml/min; Glucose 171 mg/dl (70-99); Potassium 4.6 mmol/L (3.5-5.1); Sodium 131 mmol/L (135-145); eGFR 34.48
[2025-04-27] MEDS: PRECEDEX 100 IV (06:16)
--- NOTE | 2025-04-27 06:30 | PTCARENOTE ---
Precedex gtt turned off due to bradycardia. HR 39. Pt appears asymptomatic.
[2025-04-27 07:17] LABS: Glucose - Point of Care 163 mg/dl (70-99)
[2025-04-27] MEDS: NOVOLOG FLEXPEN SC ×2 (07:19→11:28)
--- NOTE | 2025-04-27 07:21 | W.PN.INTV ---
Addendum entered and electronically signed by Belkis Benson MD 04/27/25 18:40:
Patient transferred to IMU
Pulmonary will continue to follow
Addendum entered and electronically signed by Belkis Benson MD 04/27/25 12:39:
Patient seen and examined independently by myself. Resident note reviewed, agree with assessment and plan
Overnight, patient continues to improve. Remains on noninvasive ventilation, steroids. Oxygen requirement improved. Low-grade fever noted
Urine output stable
Patient is more conversant, asking for NIV mask to come off
Vitals stable
Physical exam unchanged, better air movement on the right
Incision right posterior upper chest intact
Data reviewed
Lactate normal, liver function mildly elevated, creatinine stable at 1.6
A/P
Moving forward
Will continue with current antibiotics per infectious disease
Will provide BiPAP at night, discontinuing NIV
Wean oxygen throughout the day as able
Chest x-ray with improvement, interventional radiology without enough fluid for drainage
Follow x-ray intermittently
Lasix therapy continues, appreciate nephrology input
Continue heparin drip for now for DVTs
Consider transition to oral anticoagulation in the next 24 to 48 hours
Follow liver function
Will try to decrease pain medications
Resume oral oxycodone
Off Precedex
Patient requesting Mucinex
Out of bed to chair, PT/OT
Bowel regimen
Follow blood sugars, weight insulin recommendations, hope can come off glycemic protocol
Continue IV steroids for now, consider decrease in the next 24 hours, tapered off
Remains high risk situation
Reviewed with critical care nursing, pharmacy, respiratory care
TCCT 31 min
Original Note:
Today's Communication / Plan
Recommendations
Stop Dilauid scheduled (Continue PRNs)
Start Oxycodone 20mg Q6H
Start Mucinex, Senokot-S,
PT/OT to follow
Resume diet, plan to wean from insulin drip
X-ray tomorrow AM
Assessment
-
Assessment:
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
hypertension, brain aneurysm s/p clipping and CVA who presented to the ED via EMS on 04/25/2025 with difficulty breathing ongoing for 1 week found to have a BG of >600 with an anion gap of 19 and lactic acid of 12 who was admitted to the for
acute hypoxic respiratory failure and DKA vs HHS.
Plan:
Acute Hypoxic Respiratory Failure due to Pneumonia vs Atelectasis
Respiratory Acidosis
Right Lower Lobe Squamous Cell Lung Cancer s/p Wedge resection 03/2025
History of Stage IB lung cancer s/p left upper lobe resection in 2022
Per Chest X-ray 04/25: Ill-defined airspace opacity within the right lung base suspicious for pneumonia. Presence of small pleural effusion and/or atelectasis is also a consideration. Chest X-ray 04/26 shows worsened airspace opacity, and US right
chest concerning for moderate-large pleural effusion
Currently on Azithromycin and Cefepime
Infectious Disease consulted by admitting team, will appreciate their insight
Consulted Interventional Radiology yesterday, plan for possible thoracentesis today
Follow blood cultures. One positive for likely contaminant
Continue PRN and scheduled inhalers for shortness of breath/wheezing
Continue stress dose hydrocortisone 50 x 20 doses total
Continue aspiration precautions, keeping head of the bed >30-45 degrees
Ordered Musinex today
PT/OT to follow now that she is weaning off NIV
Plan for X-ray tomorrow AM
Provided updates to surgeon that performed recent wedge resection on 04/25
Hyperosmolar Hyperglycemic State (Likely) vs Diabetic Ketoacidosis (Unlikely)
Non-Insulin Dependent Type 2 Diabetes
Patient with hyperglycemia with BG of >600, anion-gap metabolic acidosis of 19 (20.8 when corrected for albumin). Notably, Lactic acidosis also 12, and bHB was only mildly elevated at 0.38. HHS seems more likely compared to DKA given other sources
of anion gap acidosis and low bHB
Hemoglobin a1c 8.1% 04/26
S/p 2.5L of IV fluids in the ED, now on NS + KCl 20 meq drip.
Continue Insulin drip, IV fluids to 5% Dextrose with 0.45% NS. Plan to advance diet today and try to transition to SC insulin
Acute Anemia
Suspect dilutional over blood loss given volume of IV fluids she has received
Consent obtained on 04/26
Transfuse 1 unit pRBCs 04/26
Hemoglobin today 9.0
Continue to follow
Acute Kidney Injury
Patient's creatinine 1.6 today, increased from baseline of 1.0-1.1
She has also been producing little urine despite IV fluid therapy
Continue fam for Is and Os
Nephrology is following, will appreciate their insight into her case
Elevated Troponin
Troponin 0.048 on admission, increased to 0.086, downtrended to 0.074
Suspect demand ischemia in the setting of hypoxic respiratory failure
Echo 04/25: Normal left ventricular size and systolic function with LV ejection fraction visually estimated 60 to 65% and mild LVH. Estimated pulmonary artery systolic pressure 52 mmHg assuming a right atrial pressure of 10 mmHg. No pericardial
effusion. Prominent anterior fat pad present.
Essential Hypertension
Hypotension
Patient with hypotension upon admission, responsive to fluids initially, then requiring Levophed
Will plan to resume Losartan and CoReg, with hold parameters, once hypotension resolves
Chronic Pain Syndrome
Continue lidocaine patch
Continue PRN Toradol for moderate pain
Stop dilaudid 2mg Q4H
Start oxycodone 20mg Q6H
Continue dilaudid 0.5mg Q4h PRN for moderate pain, 1mg Q4hPRN for severe pain.
Continue Tylenol 1g Q6H
Continue rectal bisacodyl PRN for constipation as prophylaxis given narcotic pain medications
START oral Senokot-S
History of CVA
Continue Rosuvastatin 40mg
Subjective Dataa
Subjective Data
Date of Service:
Date of Service: April 27, 2025
Chief Complaint: Ear Nose Throat Physician Follow Up
Subjective:
Patient was resting in bed when I arrived. She reports some difficulty sleeping overnight due to feeling of congestion in the left side of her chest, which was uncomfortable but has now resolved. She also reports difficulty with tolerating her NIV
mask as she feels like she is 'fighting' it to breath right. She is hopeful that she may be able to not need the mask soon. Shortly after I saw her, she was transitioned from NIV to high-flow, then to mid-flow.
Review of Systems
General: Fever (Denies) and Chills (Denies)
Cardiopulmonary: Cough and Other (Chest Congestion, left sided, now resolved)
GI: Abdominal Pain (Denies) and Nausea (Denies)
Objective Data
Data Reviewed
Vital Signs / I&O / Oxygen:
Vital Signs
Temp Pulse Resp BP Pulse Ox
97.7 F 60 16 126/69 100
04/27/25 07:25 04/27/25 08:11 04/27/25 08:11 04/27/25 07:30 04/27/25 08:11
Intake and Output
04/26/25 04/27/25 04/28/25
06:59 06:59 06:59
Intake Total 5858.3 / 6036.9 2499.7 / 2517.2 27.5 / 27.5
Output Total 362 / 387 1848 / 1848 145 / 145
Balance 5496.3 / 5649.9 651.7 / 669.2 -117.5 / -117.5
SaO2 [NIV (Non Invasive 96
Ventilation)]
SaO2 100
Nasal Cannula flow liters per 50
minute
Physical Exam
General: Comfortable
HEENT: Normocephalic and Anicteric
Cardiovascular: S1-S2 and Regular Rhythm
Respiratory: Crackles (Bilaterally mechanical breath sounds, difficult to hear over sound of NIV, some crackles right lower lobe) and Other (NIV (IPAP 14, EPAP 8, FiO2 40%, Rate 12, I time 0.85.). Patient respirations closer to 25-30 breaths per
minute)
Neurology: Awake and Alert
Skin: Warm, Dry and Good Color
Labs/Micro/Reports
Lab Data
04/27/25 04:54
04/27/25 04:54
Laboratory Results
04/26/25 04/26/25 04/26/25
13:54 17:55
APTT 59.7 H 176.8 H*
pH 7.29 L
pCO2 34
pO2 98
HCO3 16.3 L
O2 Delivery Level
04/27/25
04:54
APTT 141.0 H
pH
pCO2
pO2
HCO3
O2 Delivery Level
Microbiology
04/25/25 03:33 Blood/Venous Blood Culture - Preliminary
Diptheroids
04/25/25 03:33 Blood/Venous Gram Stain - Preliminary
04/25/25 03:33 Blood/Venous Blood Culture - Preliminary
No Growth in 48 hours- Final report to follow
04/25/25 10:37 Urine Urine Culture - Final
NO GROWTH
04/25/25 10:37 Urine Streptococcus pneumoniae Antigen (M - Final
Negative for Streptococcus pneumoniae antigen.
A negative result does not exclude infection with
Streptococcus pneumoniae. Clinical correlation is
recommended.
04/25/25 10:37 Urine Legionella Urinary Antigen - Final
Negative for Legionella pneumophila Serogroup 1 antigen.
A negative result does not rule out the possiblity of
Legionella infection due to other serogroups or species of
Legionella. Clinical correlation is recommended.
04/25/25 04:17 Nose Nasal Screen MRSA (PCR) - Final
MRSA not detected - performed by PCR methodology.
04/25/25 02:20 Nasal Swab Influenza Types A & B (JAYSHREE) - Final
Negative for Influenza A & B, NAAT
Negative results must be combined with clinical observations
and patient history.
Nucleic Acid Amplification test (NAAT)performed on the
[employer] platform.
[2025-04-27] MEDS: DUONEB 3 ML INH ×4 (08:01→20:18)
[2025-04-27] MEDS: PULMICORT 0.5 MG INH ×2 (08:01→20:18)
[2025-04-27] MEDS: LIDOCAINE 4% PATCH 1 PATCH TOPICAL (08:16)
[2025-04-27] MEDS: CRESTOR 40 MG PO (08:17)
--- NOTE | 2025-04-27 08:54 | PN.DE.MGMTRT ---
Insulin Management
- -
04/27/2025: Diabetes Management Consult Follow up
Patient admitted with c/o increasing SOB since Friday, 04/20. 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
wedge Resection & Mediastinal Lymph Node Dissection by Dr Banuelos 04/15. On admission she was found to be saturating at 70%. Chest x-ray revealed possible right sided pneumonia. She was tried on BiPAP, developed hypotension received IV fluids with good
response. NEW finding of R & L peroneal vein DVT. Prior to admission was taking Glimepiride 1mg daily @ HS and Mounjaro 5 on Sundays. Of note pt had stopped taking her diabetes medication. A1C 8.1%, Cr 1.6, eGFR 34.48 today.
Pt is sleeping not disturbed, now on DE, information obtained from chart review and patients nurse.
04/26 Patient transitioned from DKA protocol insulin infusion to Critical Care glycemic protocol with target of 140 to 180. Glucose range 149 to 191 requiring 1.7 to 3 units of insulin per hour.
04/27 Patient will continue to receive Hydrocortisone 50 mg Q 6 hours. Patient cleared to start diet. Patient is 5'2, diet changed from 2000 to 1600 calories. Will continue Critical care glycemic protocol at this time, requiring 1.5 to 3 units
of insulin per hour, follow glucose to determine if patient can transition to subcutaneous insulin; it is unlikely home dose of glimepiride 1 mg daily will be adequate with current steroid administration.
Discussed with nurse.
Will cont to follow
Diabetes History
- -
Type of Diabetes: 2
Pre-Admission Diabetes Regimen
04/27/25
04:54
Creatinine 1.6 H
Lab Results
Hemoglobin A1c 8.1 % (4.0-5.9) H 04/25/25 06:37
Insulin Pump Settings
IP Diabetes Regimen
04/26/25 04/26/25 04/26/25
09:15 10:23 11:46
Glucose
POC Glucose 187 H 198 H 183 H
04/26/25 04/26/25 04/26/25
12:43 13:41 14:44
Glucose
POC Glucose 180 H 164 H 165 H
04/26/25 04/26/25 04/26/25
15:53 17:14 17:55
Glucose Cancelled 179 H
POC Glucose 179 H
04/26/25 04/26/25 04/26/25
17:56 19:04 21:06
Glucose
POC Glucose 186 H 172 H 198 H
04/26/25 04/26/25 04/27/25
21:59 23:01 01:01
Glucose
POC Glucose 191 H 173 H 180 H
04/27/25 04/27/25 04/27/25
03:10 04:54 05:03
Glucose 171 H
POC Glucose 149 H 161 H
04/27/25
07:06
Glucose
POC Glucose 163 H
Patient Education
[2025-04-27] MEDS: HEPARIN 25000 UNITS/250 ML IV (09:01)
[2025-04-27 09:10] LABS: Glucose - Point of Care 144 mg/dl (70-99)
--- NOTE | 2025-04-27 09:39 | W.PN.HOSP.TC ---
Today's Communication/Plan
-
.
Assessment / Plan
Assessment / Plan
Physical Exam
General: Using Bipap for Respiratory Distress
HEENT: Normocephalic, Atraumatic
Respiratory: better air entry today
Cardiac: S1/S2
GI: Soft and Non Distended
Genito-urinary: No Spicer
Musculoskeletal: No Clubbing and No Edema
Skin: Warm
Neuro: AO x 3 and Nonfocal/grossly intact
Psych: calm, Intact Judgment/Insight
# Acute Hypoxic respiratory failure due to pneumonia vs Atelectasis requiring assisted ventilation
Acute respiratory acidosis and metabolic acidosis
Still on Bipap
s/p thoracentesis for moderate right pleural effusion on 04/27
-Blood culture No growth
-Started on vancomycin and Zosyn for now then on Cefepime & Zithromax.
-Elevated procalcitonin
- Negative COVID & Flu . MRSA screen is negative
- History of asthma, minimal wheezing at this time, supportive measures with inhaled steroids and prn albuterol/ipratropium
- Appreciate pulmonary/ ID help
Anion gap metabolic lactic acidosis with some residual respiratory acidosis - Hyperglycemia>600 and AGAP acidosis suggests DKA, AG explained by lactic acidosis of 12. bHB 0.38. Unlikely DKA. The respiratory component mostly resolved with NIPPV (ABG
7.2/).
HHS, blood glucose > 600, recent hx of high sugar intake, sepsis and non-compliance with antidiabetic regimen
- no insulin gtt for HHS not DKA
- s/p aggressive fluid resuscitation
# JOHNNY on CKD IIIB
GFR around baseline
Holding Losartan
Monitor for retention, treat anemia/ low BP
# Hyponatremia
# Acute right and left peroneal vein DVT
On IV heparin gtt
Monitor PTT
# S/P Wedge Resection of the Right Lower Lobe Lung Cancer & Mediastinal Lymph Node Dissection by Dr Banuelos 10/17
# Anemia of chronic disease due to underlying CKD stage IIIb
chronic anemia ( HGB around 10 in December 2024) acute on chronic anemia with mild acute blood loss anemia postsurgery
s/p 2 units of blood transfusion on 04/26. Patient signed consent.
# chronic pain syndrome with opioid dependency
Acute on chronic pain
# Troponin elevation c/w non ischemic troponin elevation due to hypoxia
no known h/o CAD. No recent CP.
- trend troponin is down
- echo of heart: Normal left ventricular size and systolic function with LV ejection fraction visually estimated 60 to 65% and mild LVH.
# Sepsis POA/ Septic shock
Hx of Hypertension
- Hold losartan
- Started on stress dose steroid
- hold Coreg for SBP < 100
Diabetes / DKA-
- on insulin gtt
- diabetes SHOE REC[employer]DITIONER consult
History of CVA
- Continue statin and ezetimibe
DVT prophylaxis� heparin sq
CODE STATUS�full code
Total time spent to see the patient, examined the patient, review data and lab result, discuss treatment plan with patient, nursing staff, consultants around 55 minutes
Anticipated Discharge: > 48 hours
Subjective/Interval History
-
Date of Service: April 27, 2025
PT reports feeling better, hoping to go on nasal oxygen
Objective Data
-
Labs:
Laboratory Results
04/27/25 04/27/25
04:54 12:30
WBC 18.6 H
Hgb 9.0 L
Hct 28.6 L
Plt Count 207
APTT 141.0 H Pending
Sodium 131 L
Potassium 4.6
Chloride 107
Carbon Dioxide 17 L
BUN 21 H
Creatinine 1.6 H
Glucose 171 H
Calcium 8.7
Vital Signs:
Vital Signs
Temp Pulse Resp BP Pulse Ox
97.7 F 60 16 126/69 100
04/27/25 07:25 04/27/25 08:11 04/27/25 08:11 04/27/25 07:30 04/27/25 08:11
I&O
04/26/25 04/27/25 04/28/25
06:59 06:59 06:59
Intake Total 5858.3 / 6036.9 2499.7 / 2517.2 27.5 / 27.5
Output Total 362 / 387 1848 / 1848 145 / 145
Balance 5496.3 / 5649.9 651.7 / 669.2 -117.5 / -117.5
--- NOTE | 2025-04-27 10:57 | W.PN.ID1 ---
Date of Service
Date of Service: April 27, 2025
Today's Communication
Continue current antibiotics.
Assessment / Plan
Right-sided pneumonia
Leukocytosis
Hypoxemic respiratory failure; s/p BiPAP
Bilateral DVTs
Hyperglycemia
Lactic acidosis
Elevated troponin
Bacteriuria
Asthma
Lung cancer
Hx CVA (aneurysm)
HTN
HLD
NIDDM
Chronic back pain
Narcotic dependence
Hx nephrolithiasis
Recommendations:
Continue cefepime (d#4 abx) and Azithromycin (d#3)
Repeat blood cultures negative; 04/25 blood culture with gram-positive bacilli; likely contaminant
Legionella and pneumococcal antigens negative
Continue with supportive measures.
Monitor white count and temperature curve.
Check sputum culture if able to give sample; none as of yet.
Follow CXR.
����������������������������������������������������������
Chief Complaint
-: Leukocytosis
Subjective / Review of Systems
Patient seen and examined. Now off BiPAP and on 15 L mid flow. Breathing is comfortable.
Review of Systems: No Fever and No Chills
Vital Signs / Physical Exam
Vital Signs
Vital Signs
Temp Pulse Resp BP Pulse Ox
98 F 73 16 148/82 96
04/27/25 10:18 04/27/25 10:00 04/27/25 10:00 04/27/25 10:00 04/27/25 10:00
Physical Exam
Constitutional: Comfortable, Chronically Ill, Non-toxic and Obese
Eyes: Sclera Anicteric
Cardiovascular: Regular Rate and S1/S2; Negative S3/S4
Pulmonary: Clear, Coarse and Non Labored
Gastrointestinal: Soft, Non Distended and Normal Bowel Sounds
Genito-Urinary: Spicer and Clear Urine
Extremities: Negative Edema or Cyanosis
Neurological: Awake and Alert
Psychological: Calm
Objective Data
Lab Data
Lab Results
04/27/25 04:54
04/27/25 04:54
PT 15.9 Sec (11.4-14.6) H 04/25/25 04:17
INR 1.24 04/25/25 04:17
APTT 141.0 Sec (23.4-35.0) H 04/27/25 04:54
Estimated Creat Clear 36 ml/min 04/27/25 04:54
Lactic Acid 1.4 mmol/L (0.7-2.0) 04/26/25 17:55
Total Bilirubin 0.7 mg/dl (0.2-1.3) 04/26/25 17:55
AST 157 U/L (14-36) H 04/26/25 17:55
ALT 57 U/L (0-35) H 04/26/25 17:55
Alkaline Phosphatase 61 U/L (38-126) 04/26/25 17:55
Most recent labs reviewed.
Micro Results:
04/25/25 03:33 Blood Culture - Preliminary
Blood/Venous Diptheroids
Gram Stain - Preliminary
04/25/25 03:33 Blood Culture - Preliminary
Blood/Venous No Growth in 48 hours- Final report to follow
04/25/25 10:37 Urine Culture - Final
Urine NO GROWTH
04/25/25 10:37 Streptococcus pneumoniae Antigen (M - Final
Urine Negative for Streptococcus pneumoniae antigen.
A negative result does not exclude infection with
Streptococcus pneumoniae. Clinical correlation is
recommended.
04/25/25 10:37 Legionella Urinary Antigen - Final
Urine Negative for Legionella pneumophila Serogroup 1 antigen.
A negative result does not rule out the possiblity of
Legionella infection due to other serogroups or species of
Legionella. Clinical correlation is recommended.
04/25/25 04:17 Nasal Screen MRSA (PCR) - Final
Nose MRSA not detected - performed by PCR methodology.
04/25/25 02:20 Influenza Types A & B (JAYSHREE) - Final
Nasal Swab Negative for Influenza A & B, NAAT
Negative results must be combined with clinical observations
and patient history.
Nucleic Acid Amplification test (NAAT)performed on the
[employer] platform.
Imaging:
08/27/2024 CXR (portable): volume loss in the right hemithorax. Worsening aeration of the right lung compared to prior chest x-ray. Minimal linear opacity at the left lung base. Please see full dictation for additional detail.
Care Review
Plan reviewed with: Physician (Resident)
--- NOTE | 2025-04-27 11:05 | W.PN.NEPH.PH ---
Today's Communication / Plan
-
lasix now
Assessment/Plan
-
Assessment
JOHNNY
Hypotension
Right side lung infiltrate, effusion
Chronic pain syndrome
Sepsis
Diabetes mellitus type 2, hyperglycemia
Bilateral peroneal vein DVT
Anemia
Lung cancer status post right lower lobe wedge resection 04/15/2025, left upper lobe wedge resection 2022
History of stroke, brain aneurysm status post clipping
Lactic acidosis
Hypoalbuminemia
proteinuria
Plan:
JOHNNY-likely prerenal and underlying diabetic nephropathy
cr has been fluctuating since few months
UA pyuria and non acute renal US, non oliguric with fam
check U PCR, currently with out [facility] for few months
wt is up, cotn diuresis -lasix 80mg , repeat dose if needed
bp stable off pressors
non gap met acidosis-monitor for now, L acid normalized
abx per ID
mild hyponatremia-likely dilutional, check u osmo
monitor h/h post trasnfusion
Heparin drip for DVT
follow LFTs-slightly elevated
Discussed with patient
d/w nursing and primary team
high risk encounter
-
-
Date of Service: April 27, 2025
CC / HPI / ROS
-
Chief Complaint:
JOHNNY
History of Present Illness:
cr slightly down aat 1.6
sodium low 131, glucose 171
bicarb still low at 17
l acid normal
BP stabe off pressors
hb better at 9, leucocytosis persists 18.6
Review of Systems:
no cp, sob improving
O2 is weaning down from BiPAP
c/o mausea
Labs
-
Labs:
WBC 18.6 10^3/uL (4.8-10.8) H 10/29/25 04:54
RBC 3.11 10^6/uL (4.20-5.40) L 04/27/25 04:54
Hgb 9.0 g/dL (12.0-16.0) L 04/27/25 04:54
Hct 28.6 % (37.0-47.0) L 04/27/25 04:54
Plt Count 207 10^3/uL (130-400) 04/27/25 04:54
Sodium 131 mmol/L (135-145) L 04/27/25 04:54
Potassium 4.6 mmol/L (3.5-5.1) 04/27/25 04:54
Chloride 107 mmol/L (98-107) 04/27/25 04:54
Carbon Dioxide 17 mmol/L (22-30) L 04/27/25 04:54
BUN 21 mg/dl (7-17) H 04/27/25 04:54
Creatinine 1.6 mg/dL (0.6-1.0) H 04/27/25 04:54
eGFR 34.48 04/27/25 04:54
Glucose 171 mg/dl (70-99) H 04/27/25 04:54
Calcium 8.7 mg/dl (8.4-10.2) 04/27/25 04:54
Phosphorus 6.6 mg/dl (2.5-4.5) H 04/25/25 03:01
Vbh-H-Ocmbaesgufa Pept 1410 pg/ml 04/25/25 01:06
Albumin 2.9 g/dl (3.5-5.0) L 04/26/25 17:55
Physical Exam
-
Vital Signs:
Vital Signs
Temp Pulse Resp BP Pulse Ox
98 F 73 16 148/82 96
04/27/25 10:18 04/27/25 10:00 04/27/25 10:00 04/27/25 10:00 04/27/25 10:00
Cardiovascular:: Regular rate and rhythm
Respiratory:: Bilateral: Coarse (decreased BS right base)
Lung Excursion:: Normal
Abdomen:: Nontender and Soft
Extremity Edema:: +1: Bilateral: (trace)
Fam Catheter: Yes
[2025-04-27] MEDS: ROXICODONE 20 MG PO ×3 (11:06→23:41)
[2025-04-27] MEDS: ZITHROMAX INFUSION 250 IV (11:07)
[2025-04-27] MEDS: SENOKOT-S 1 TABLET PO (11:07)
[2025-04-27] MEDS: MUCINEX 600 MG PO ×2 (11:07→20:22)
[2025-04-27 11:39] LABS: Glucose - Point of Care 128 mg/dl (70-99)
[2025-04-27] MEDS: LASIX 80 MG IV (13:01)
[2025-04-27 13:10] LABS: APTT 30.9 Sec (23.4-35.0)
[2025-04-27 14:12] LABS: Glucose - Point of Care 209 mg/dl (70-99)
--- NOTE | 2025-04-27 14:57 | CM ---
Small to moderate R pleural effusion, PNA, Bipap HS. IV/Cefipime/Zithromax/heparin/Solu-Medrol. Discharge POC: Family wants SNF. Patient in past declined SNF. Awaiting therapy eval and rec. Unable to complete recently due to medical instability.
[2025-04-27 15:11] LABS: Glucose - Point of Care 164 mg/dl (70-99)
--- NOTE | 2025-04-27 15:40 | PTCARENOTE ---
Pt AAOx3. Sinus rhythm. Reports feeling better today. 12L midflow NC. Frequent nonproductive cough. Large loose stool x2. OOB in chair with walker with PT/OT. Spicer draining clear yellow. Good urine output with IV Lasix. All other
assessments unchanged. Family at bedside.
[2025-04-27] MEDS: DILAUDID 0.5 MG IV ×2 (16:02→20:54)
[2025-04-27] MEDS: TYLENOL 650 MG PO ×2 (17:21→22:30)
[2025-04-27] MEDS: LANTUS 0.18 UNITS SC (17:25)
[2025-04-27] MEDS: DILAUDID 1 MG IV ×2 (17:35→22:40)
[2025-04-27 17:36] LABS: Glucose - Point of Care 150 mg/dl (70-99)
[2025-04-27] MEDS: NOVOLOG FLEXPEN-MODERATE RESISTANCE SC (18:12)
[2025-04-27] MEDS: NOVOLOG FLEXPEN 2 UNITS SC (18:12)
[2025-04-27 20:22] LABS: Glucose - Point of Care 225 mg/dl (70-99)
[2025-04-27 20:36] LABS: APTT 39.5 Sec (23.4-35.0)
--- NOTE | 2025-04-27 20:36 | PTCARENOTE ---
Addendum entered by Linda Chowdary RN 04/28/25 01:40:
0000: Pt c/o chest pain/ burning, frequent belching,nausea, b/l shoulder and arm pain. EKG completed (NSR). Provider made aware. no new orders at this time.
PRNs administered and found to be effective ( see mar for details).
Addendum entered by Linda Chowdary RN 04/28/25 01:25:
Late note due to pt care:
Repeat BG measurements reported to house provider. no new orders at this time.
Original Note:
2009: BG 225. Pt ate within 1 hour of measurment. Order changed to ACHS from Q1 hour due to d/c of insulin gtt on prior shift. will recheck bg at HS
[2025-04-27] MEDS: HEPARIN 7300 UNITS IV (20:57)
[2025-04-27] MEDS: REMOVE LIDOCAINE PATCH 1 PATCH REMOVE (21:18)
[2025-04-27 22:39] LABS: Glucose - Point of Care 232 mg/dl (70-99)
[2025-04-27] MEDS: ZOFRAN 4 MG IV (23:42)
[2025-04-28] VITALS (21 sets, daily range): BP systolic 95–157; BP diastolic 58–128; PULSE 2–76; O2SAT 97; BMI 39.2
[2025-04-28 00:35] LABS: Glucose - Point of Care 224 mg/dl (70-99)
[2025-04-28 03:24] LABS: APTT 91.5 Sec (23.4-35.0)
--- NOTE | 2025-04-28 04:04 | PTCARENOTE ---
Pt transferred to 3354 from ICU with all belongings. C/o pain in arms, back and incision site. Medicated with prn dilaudid. states shola 'doesn't do anything' 8 L midflow satting 94-95%. intermittently c/o nausea, belching/spitting up but denies need
for zofran. Using call vidal appropriately.
[2025-04-28] MEDS: MAXIPIME 1000 MG IV ×3 (05:09→23:15)
[2025-04-28] MEDS: ROXICODONE 20 MG PO ×4 (05:09→23:15)
[2025-04-28] MEDS: SOLU-CORTEF 50 MG IV (05:10)
[2025-04-28] MEDS: STERILE WATER FOR INJECTION 10 ML IV ×3 (05:10→23:15)
[2025-04-28] MEDS: DILAUDID 1 MG IV (05:12)
[2025-04-28] MEDS: ZOFRAN 4 MG IV (06:02)
[2025-04-28] MEDS: HEPARIN 25000 UNITS/250 ML IV (06:34)
[2025-04-28] MEDS: PULMICORT 0.5 MG INH ×2 (07:47→19:12)
[2025-04-28] MEDS: DUONEB 3 ML INH ×4 (07:47→19:12)
[2025-04-28] MEDS: COMPAZINE 10 MG IV (08:11)
[2025-04-28] MEDS: LIDOCAINE 4% PATCH 1 PATCH TOPICAL (08:11)
[2025-04-28 08:18] LABS: Glucose - Point of Care 214 mg/dl (70-99)
[2025-04-28] MEDS: NOVOLOG FLEXPEN-MODERATE RESISTANCE 3 UNITS SC (08:29)
[2025-04-28] MEDS: NOVOLOG FLEXPEN 4 UNITS SC (08:29)
[2025-04-28] MEDS: CORTEF 10 MG PO ×2 (08:31→19:47)
[2025-04-28] MEDS: CRESTOR 40 MG PO (08:31)
[2025-04-28] MEDS: MUCINEX 600 MG PO ×2 (08:31→19:47)
[2025-04-28] MEDS: COREG 6.25 MG PO ×2 (08:31→19:51)
[2025-04-28] MEDS: ZITHROMAX 500 MG PO (08:31)
[2025-04-28] MEDS: MS CONTIN (EXTENDED RELEASE) 15 MG PO ×2 (08:32→19:47)
--- NOTE | 2025-04-28 09:00 | W.PN.HOSP.TC ---
Today's Communication/Plan
-
She was anxious and concerned about moving out of ICU, changing doctors and nurses. I reassured the patient. Will go back again today to review her course and see if she has more questions.
Will stop IV steroid ( ? anxious). Will change to hydrocortisone ( short acting and taper quickly), c/w Breathing treatments
She is reporting alot of pain as oxycodone was not working well, will add long acting morphine oral tablet, c/w IV PRN Dilaudid.
Will change to oral Zithromax, hope to change to oral ABx soon
Will d/w pt about starting Eliquis when she is less anxious
Order blood work
Assessment / Plan
Assessment / Plan
Physical Exam
General: Using Bipap for Respiratory Distress
HEENT: Normocephalic, Atraumatic
Respiratory: better air entry today
Cardiac: S1/S2
GI: Soft and Non Distended
Genito-urinary: No Spicer
Musculoskeletal: No Clubbing and No Edema
Skin: Warm
Neuro: AO x 3 and Nonfocal/grossly intact
Psych: calm, Intact Judgment/Insight
# Acute Hypoxic respiratory failure due to pneumonia vs Atelectasis requiring assisted ventilation
Acute respiratory acidosis and metabolic acidosis
Good clinical improvement
Off Bipap
s/p thoracentesis for moderate right pleural effusion on 04/27
-Blood culture No growth
-Started on vancomycin and Zosyn for now then on Cefepime & Zithromax.
-Elevated procalcitonin
- Negative COVID & Flu . MRSA screen is negative
- History of asthma, minimal wheezing at this time, dc IV steroid ( might be causing anxiety), will taper down slowly. c/w breathing treatments.
- Appreciate pulmonary/ ID help
Anion gap metabolic lactic acidosis with some residual respiratory acidosis - Hyperglycemia>600 and AGAP acidosis suggests DKA, AG explained by lactic acidosis of 12. bHB 0.38. Unlikely DKA. The respiratory component mostly resolved with NIPPV (ABG
7.2//).
HHS, blood glucose > 600, recent hx of high sugar intake, sepsis and non-compliance with antidiabetic regimen
- s/p insulin gtt for HHS not DKA
- s/p aggressive fluid resuscitation
Resolved.
# JOHNNY on CKD IIIB
GFR around baseline
Holding Losartan
Monitor for retention, treat anemia/ low BP
# Hyponatremia
# Acute right and left peroneal vein DVT
On IV heparin gtt
Monitor PTT
# S/P Wedge Resection of the Right Lower Lobe Lung Cancer & Mediastinal Lymph Node Dissection by Dr Banuelos 04/15
# Anemia of chronic disease due to underlying CKD stage IIIb
chronic anemia ( HGB around 10 in December 2024) acute on chronic anemia with mild acute blood loss anemia postsurgery
s/p 2 units of blood transfusion on 04/26. Patient signed consent.
# chronic pain syndrome with opioid dependency
Acute on chronic pain
reports poorly controlled with oxy , will add long acting oral morphine
# Troponin elevation c/w non ischemic troponin elevation due to hypoxia
no known h/o CAD. No recent CP.
- trend troponin is down
- echo of heart: Normal left ventricular size and systolic function with LV ejection fraction visually estimated 60 to 65% and mild LVH.
# Sepsis POA/ Septic shock
Hx of Hypertension
- Hold losartan & Coreg
- Started on stress dose steroid
- Resume Coreg
Diabetes / DKA-
- on insulin gtt, off now, started on SQ insulin with pre-meal & Lantus.
- diabetes DIRECTOR OF CUSTOMER ACQUISITION consulted, help appreciated.
History of CVA
- Continue statin and ezetimibe
DVT prophylaxis� heparin sq
CODE STATUS�full code
Total time spent to see the patient, examined the patient, review data and lab result, discuss treatment plan with patient, nursing staff, consultants around 55 minutes
Anticipated Discharge: > 48 hours
Subjective/Interval History
-
Date of Service: April 28, 2025
Patient is upset about moving her out of ICU middle of the night, she could not sleep and felt the process was not handled well.
She is concerned that her care might be different now with different doctors/ nurses.
She reports feeling better but very concerned about pneumonia/ blood clots prognosis. Unhappy about her post op course( I thought I would be back to normal after surgery) although she admitted that her course became complicated by PNA and blood
clots.
Objective Data
-
Labs:
Laboratory Results
04/28/25 04/28/25
03:04 09:00
APTT 91.5 H Pending
Vital Signs:
Vital Signs
Temp Pulse Resp BP Pulse Ox
98.4 F 86 18 144/83 94
04/28/25 03:09 04/28/25 08:31 04/28/25 07:51 04/28/25 08:31 04/28/25 07:51
I&O
04/27/25 04/28/25 04/29/25
06:59 06:59 06:59
Intake Total 2499.7 / 2517.2 835.5 / 835.5
Output Total 1848 / 1848 3525 / 3525
Balance 651.7 / 669.2 -2689.5 / -2689.5
--- NOTE | 2025-04-28 09:05 | PN.DE.MGMTRT ---
Insulin Management
- -
04/28/2025: Diabetes Management Consult Follow up
Patient admitted with c/o increasing SOB since Friday, 04/20. 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
wedge Resection & Mediastinal Lymph Node Dissection by Dr Banuelos 04/15. On admission she was found to be saturating at 70%. Chest x-ray revealed possible right sided pneumonia. She was tried on BiPAP, developed hypotension received IV fluids with good
response. NEW finding of R & L peroneal vein DVT. Prior to admission was taking Glimepiride 1mg daily @ HS and Mounjaro 5 on Sundays. Of note pt had stopped taking her diabetes medication. A1C 8.1%, Cr 1.6, eGFR 34.48 today.
Pt is sleeping not disturbed, now on [place], information obtained from chart review and patients nurse.
04/27 Patient continued to receive Hydrocortisone 50 mg Q 6 hours. Patient cleared to start diet. Patient is 5'2, diet changed from 2000 to 1600 calories. Will continue Critical care glycemic protocol at this time, requiring 1.5 to 3 units of
insulin per hour,until pre dinner. Patient transitioned from glycemic protocol insulin infusion to 18 units lantus and 4 units novolog AC. HS glucose 224.
04/28 Fasting glucose 214. Continues to receive hydrocortisone 50 mg IV Q 6 hours. Will increase AM lantus to 20 units. Will increase AC novolog to 6 units with moderate corrective.
Discussed with nurse.
Will cont to follow
Diabetes History
- -
Type of Diabetes: 2 requiring insulin
Pre-Admission Diabetes Regimen
Lab Results
Hemoglobin A1c 8.1 % (4.0-5.9) H 04/25/25 06:37
Insulin Pump Settings
IP Diabetes Regimen
04/27/25 04/27/25 04/27/25
08:59 11:27 14:01
POC Glucose 144 H 128 H 209 H
04/27/25 04/27/25 04/27/25
14:59 17:24 20:09
POC Glucose 164 H 150 H 225 H
04/27/25 04/28/25 04/28/25
22:28 00:22 08:07
POC Glucose 232 H 224 H 214 H
Patient Education
[2025-04-28 09:56] LABS: APTT 67.4 Sec (23.4-35.0)
[2025-04-28] MEDS: HEPARIN 3600 UNITS IV (10:06)
--- NOTE | 2025-04-28 10:34 | W.PN.INTV ---
Today's Communication / Plan
Recommendations
Out of bed to chair, ambulate
Discontinue BiPAP, patient refusing
Continue antibiotics per ID
Continue heparin therapy, eventual transition to oral agent
Chest x-ray continues to improve
Pain control, bowel regimen
Patient had complaints about nursing care 5 days ago through the night
This occurred while patient had NIV mask and was anxious and talking. Reassured patient that I will discuss this with nurse manager shipping
Assessment
-
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
hypertension, brain aneurysm s/p clipping and CVA who presented to the ED via EMS on 04/25/2025 with difficulty breathing ongoing for 1 week found to have a BG of >600 with an anion gap of 19 and lactic acid of 12 who was admitted to the for
acute hypoxic respiratory failure and DKA vs HHS.
Plan/recommendations:
Acute Hypoxic Respiratory Failure due to Pneumonia vs Atelectasis
Respiratory Acidosis
Right Lower Lobe Squamous Cell Lung Cancer s/p Wedge resection 03/2025
History of Stage IB lung cancer s/p left upper lobe resection in 2022
Per Chest X-ray 04/25: Ill-defined airspace opacity within the right lung base suspicious for pneumonia. Presence of small pleural effusion and/or atelectasis is also a consideration. Chest X-ray 04/26 shows worsened airspace opacity, and US right
chest concerning for moderate-large pleural effusion
Currently on Azithromycin and Cefepime
ID following
Follow blood cultures. One positive for likely contaminant
Continue PRN and scheduled inhalers for shortness of breath/wheezing
Decrease test dose steroids
Continue aspiration precautions, keeping head of the bed >30-45 degrees
Continue with Mucinex
Will discontinue nocturnal BiPAP, patient cannot tolerate
Chest x-ray 04/28 much improved
Provided updates to surgeon that performed recent wedge resection on 04/25
Hyperosmolar Hyperglycemic State (Likely) vs Diabetic Ketoacidosis (Unlikely)
Non-Insulin Dependent Type 2
Now off insulin, continue with subcutaneous insulin therapy
Hemoglobin a1c 8.1% 04/26
Acute Anemia
Suspect dilutional over blood loss given volume of IV fluids she has received
Consent obtained on 04/26
Transfuse 1 unit pRBCs 04/26
Hemoglobin 9.0, pending today
Continue to follow
Acute Kidney Injury
Patient's creatinine 1.6, blood work pending today
She has also been producing little urine despite IV fluid therapy
Continue fam for Is and Os
Nephrology is following
Elevated Troponin
Troponin 0.048 on admission, increased to 0.086, downtrended to 0.074
Suspect demand ischemia in the setting of hypoxic respiratory failure
Echo 04/25: Normal left ventricular size and systolic function with LV ejection fraction visually estimated 60 to 65% and mild LVH. Estimated pulmonary artery systolic pressure 52 mmHg assuming a right atrial pressure of 10 mmHg. No pericardial
effusion. Prominent anterior fat pad present.
Bilateral DVT
Patient remains on heparin therapy. Eventual transition to oral
Essential Hypertension
Hypotension
Off pressors, resume outpatient regimen as able
Chronic Pain Syndrome
Continue lidocaine patch
Continue PRN Toradol for moderate pain
Stop dilaudid 2mg Q4H
Start oxycodone 20mg Q6H, will need to modify for renal function
Continue dilaudid 0.5mg Q4h PRN for moderate pain, 1mg Q4hPRN for severe pain.
Continue Tylenol 1g Q6H
Continue rectal bisacodyl PRN for constipation as prophylaxis given narcotic pain medications
Bowel regimen
History of CVA
Continue Rosuvastatin 40mg
Out of bed to chair, ambulate, PT/OT
Subjective Dataa
Subjective Data
Date of Service:
Date of Service: April 28, 2025
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
Subjective:
Asked to see patient by primary service. Patient overall is feeling much improved. She still has occasional nausea, some mild chest discomfort. Tolerated BiPAP overnight but does not like it. It makes her panic. Patient had complaints about
nighttime nursing 5 days ago
Objective Data
Data Reviewed
Vital Signs / I&O / Oxygen:
Vital Signs
Temp Pulse Resp BP Pulse Ox
98.6 F 86 18 144/83 94
04/28/25 09:35 04/28/25 08:31 04/28/25 07:51 04/28/25 08:31 04/28/25 07:51
Intake and Output
04/27/25 04/28/25 04/29/25
06:59 06:59 06:59
Intake Total 2499.7 / 2517.2 835.5 / 835.5
Output Total 1848 / 1848 3525 / 3525
Balance 651.7 / 669.2 -2689.5 / -2689.5
SaO2 [NIV (Non Invasive 96
Ventilation)]
SaO2 94
Nasal Cannula flow liters per 12
minute
Physical Exam
General: Comfortable and Other (PICC line)
HEENT: Normocephalic and Anicteric
Cardiovascular: S1-S2, Regular Rhythm, Murmur (n), Rub (n) and Peripheral Edema (n)
Respiratory: Wheeze (n), Crackles (Mild crackles right base), Rhonchi (n), Accessory Resp Muscle Use (Mild with conversation), Stridor (n) and Other
GI: Soft, Non Distended (Obese) and Non Tender
Neurology: Awake, Alert and No Motor Deficits (Moves all extremities)
Skin: Good Color, Jaundice (n), Rash (n) and Other (Right posterior chest incision intact)
Labs/Micro/Reports
Laboratory Results
04/27/25 04/27/25 04/28/25
12:43 20:12 03:04
APTT 30.9 39.5 H 91.5 H
04/28/25
09:29
APTT 67.4 H
Microbiology
04/25/25 03:33 Blood/Venous Blood Culture - Preliminary
Diptheroids
04/25/25 03:33 Blood/Venous Gram Stain - Preliminary
04/25/25 03:33 Blood/Venous Blood Culture - Preliminary
No Growth in 72 hours- Final report to follow
04/25/25 10:37 Urine Urine Culture - Final
NO GROWTH
04/25/25 10:37 Urine Streptococcus pneumoniae Antigen (M - Final
Negative for Streptococcus pneumoniae antigen.
A negative result does not exclude infection with
Streptococcus pneumoniae. Clinical correlation is
recommended.
04/25/25 10:37 Urine Legionella Urinary Antigen - Final
Negative for Legionella pneumophila Serogroup 1 antigen.
A negative result does not rule out the possiblity of
Legionella infection due to other serogroups or species of
Legionella. Clinical correlation is recommended.
04/25/25 04:17 Nose Nasal Screen MRSA (PCR) - Final
MRSA not detected - performed by PCR methodology.
[2025-04-28] MEDS: NOVOLOG FLEXPEN-MODERATE RESISTANCE 1 UNITS SC ×2 (11:17→18:08)
[2025-04-28] MEDS: NOVOLOG FLEXPEN 6 UNITS SC ×2 (11:17→18:07)
[2025-04-28] MEDS: LANTUS 0.2 UNITS SC (11:17)
[2025-04-28 11:28] LABS: Glucose - Point of Care 161 mg/dl (70-99)
--- NOTE | 2025-04-28 11:33 | W.PN.ID1 ---
Date of Service
Date of Service: April 28, 2025
Today's Communication
Continue antibiotics. See below�
Assessment / Plan
Right-sided pneumonia
Leukocytosis
Hypoxemic respiratory failure; s/p BiPAP
Bilateral DVTs
Hyperglycemia
Lactic acidosis
Elevated troponin
Bacteriuria
Asthma
Lung cancer
Hx CVA (aneurysm)
HTN
HLD
NIDDM
Chronic back pain
Narcotic dependence
Hx nephrolithiasis
Recommendations:
Continue cefepime (d#5 abx of 10) and Azithromycin (d#4 of 5)
Repeat blood cultures negative; 04/25 blood culture with gram-positive bacilli (contaminant)
Legionella and pneumococcal antigens negative
Continue with supportive measures.
Monitor white count and temperature curve.
Check sputum culture if able to give sample; none as of yet.
Follow CXR.
����������������������������������������������������������
Chief Complaint
-: Leukocytosis
Subjective / Review of Systems
Review of Systems: No Fever and No Chills
Vital Signs / Physical Exam
Vital Signs
Vital Signs
Temp Pulse Resp BP Pulse Ox
98.6 F 75 19 144/83 98
04/28/25 09:35 04/28/25 11:26 04/28/25 11:26 04/28/25 08:31 04/28/25 11:26
Physical Exam
Constitutional: No Acute Distress and Comfortable
Eyes: Sclera Anicteric
Cardiovascular: Regular Rate and S1/S2; Negative S3/S4
Pulmonary: Clear, Coarse and Non Labored
Gastrointestinal: Soft, Non Distended and Normal Bowel Sounds
Genito-Urinary: Spicer and Clear Urine
Extremities: Negative Edema or Cyanosis
Neurological: Awake and Alert
Psychological: Calm
Objective Data
Lab Data
PT 15.9 Sec (11.4-14.6) H 04/25/25 04:17
INR 1.24 04/25/25 04:17
APTT 67.4 Sec (23.4-35.0) H 04/28/25 09:29
Estimated Creat Clear 36 ml/min 04/27/25 04:54
Lactic Acid 1.4 mmol/L (0.7-2.0) 04/26/25 17:55
Total Bilirubin 0.7 mg/dl (0.2-1.3) 04/26/25 17:55
AST 157 U/L (14-36) H 04/26/25 17:55
ALT 57 U/L (0-35) H 04/26/25 17:55
Alkaline Phosphatase 61 U/L (38-126) 04/26/25 17:55
Most recent labs reviewed.
Micro Results:
04/25/25 03:33 Blood Culture - Preliminary
Blood/Venous Diptheroids
Gram Stain - Preliminary
04/25/25 03:33 Blood Culture - Preliminary
Blood/Venous No Growth in 72 hours- Final report to follow
04/25/25 10:37 Urine Culture - Final
Urine NO GROWTH
04/25/25 10:37 Streptococcus pneumoniae Antigen (M - Final
Urine Negative for Streptococcus pneumoniae antigen.
A negative result does not exclude infection with
Streptococcus pneumoniae. Clinical correlation is
recommended.
04/25/25 10:37 Legionella Urinary Antigen - Final
Urine Negative for Legionella pneumophila Serogroup 1 antigen.
A negative result does not rule out the possiblity of
Legionella infection due to other serogroups or species of
Legionella. Clinical correlation is recommended.
04/25/25 04:17 Nasal Screen MRSA (PCR) - Final
Nose MRSA not detected - performed by PCR methodology.
04/25/25 02:20 Influenza Types A & B (JAYSHREE) - Final
Nasal Swab Negative for Influenza A & B, NAAT
Negative results must be combined with clinical observations
and patient history.
Nucleic Acid Amplification test (NAAT)performed on the
[employer] platform.
Imaging:
04/28/2025 CXR (portable): patchy bibasilar opacities suggestive of pneumonia versus subsegmental atelectasis. No significant changes compared to prior study. Small right pleural effusion is noted. Please see full dictation for additional detail.
08/27/2024 CXR (portable): volume loss in the right hemithorax. Worsening aeration of the right lung compared to prior chest x-ray. Minimal linear opacity at the left lung base. Please see full dictation for additional detail.
Chest X-Ray: Image Reviewed and Report Reviewed
[2025-04-28 11:43] LABS: Hematocrit 24.2 % (37.0-47.0); Hemoglobin 7.8 g/dL (12.0-16.0); Mean Corp Hgb Conc. 32.2 g/dL (33.0-37.0); Mean Corpuscular Volume 87.4 fL (81.0-99.0); Platelet Count 191 10^3/uL (130-400); Red Cell Dist. Width 15.9 % (11.5-14.5)
--- NOTE | 2025-04-28 13:37 | W.PN.NEPH.PH ---
Today's Communication / Plan
-
lasix based on labs
Assessment/Plan
-
Assessment
JOHNNY
Hypotension
Right side lung infiltrate, effusion
Chronic pain syndrome
Sepsis
Diabetes mellitus type 2, hyperglycemia
Bilateral peroneal vein DVT
Anemia
Lung cancer status post right lower lobe wedge resection 04/15/2025, left upper lobe wedge resection 2022
History of stroke, brain aneurysm status post clipping
Lactic acidosis
Hypoalbuminemia
proteinuria
Plan:
JOHNNY-likely prerenal and underlying diabetic nephropathy
cr has been fluctuating since few months , await labs from today
UA pyuria and non acute renal US, non oliguric with fam
U PCR only 500mg/gm of cr, currently with out [facility] for few months
wt is up, cotn diuresis -lasix 80mg based on labs
likely VT soon
bp stable off pressors
non gap met acidosis-monitor for now, L acid normalized
abx per ID
mild hyponatremia-likely dilutional, u osmo 376
monitor h/h decreasing trend 7.8
Heparin drip for DVT
follow LFTs-slightly elevated
Discussed with patient
-
-
Date of Service: April 28, 2025
CC / HPI / ROS
-
Chief Complaint:
JOHNNY
History of Present Illness:
cr aat 1.6-pending labs from today
sodium low 131, glucose 171
bicarb still low at 17
l acid normal
BP stabe off pressors
hb down to 7.8, leucocytosis improving 12.5 on steroids
Review of Systems:
no cp, sob improving
O2 is weaning down 8lit mid flow
Labs
-
Labs:
WBC 12.5 10^3/uL (4.8-10.8) H 04/28/25 11:24
RBC 2.77 10^6/uL (4.20-5.40) L 04/28/25 11:24
Hgb 7.8 g/dL (12.0-16.0) L 04/28/25 11:24
Hct 24.2 % (37.0-47.0) L 04/28/25 11:24
Plt Count 191 10^3/uL (130-400) 04/28/25 11:24
eGFR 34.48 04/27/25 04:54
Phosphorus 6.6 mg/dl (2.5-4.5) H 04/25/25 03:01
Iom-G-Cfujphkbpix Pept 1410 pg/ml 04/25/25 01:06
Physical Exam
-
Vital Signs:
Vital Signs
Temp Pulse Resp BP Pulse Ox
98.1 F 75 19 144/83 98
04/28/25 13:04 04/28/25 11:26 04/28/25 11:26 04/28/25 08:31 04/28/25 11:26
Cardiovascular:: Regular rate and rhythm
Respiratory:: Bilateral: Coarse
Lung Excursion:: Normal
Abdomen:: Nontender and Soft
Extremity Edema:: None: Bilateral: (trace)
Fam Catheter: Yes
[2025-04-28 14:13] LABS: ALT (SGPT) 40 U/L (0-35); AST (SGOT) 47 U/L (14-36); Albumin 2.7 g/dl (3.5-5.0); Alkaline Phosphatase 62 U/L (38-126); Blood Urea Nitrogen 23 mg/dl (7-17); Calcium 8.4 mg/dl (8.4-10.2); Carbon Dioxide 22 mmol/L (22-30); Chloride 107 mmol/L (98-107); Estimated Creatinine Clearance 41 ml/min; Glucose 149 mg/dl (70-99); Potassium 3.4 mmol/L (3.5-5.1); Sodium 133 mmol/L (135-145); Total Protein 5.3 g/dl (6.3-8.2); eGFR 40.47
[2025-04-28 17:32] LABS: APTT 161.3 Sec (23.4-35.0)
[2025-04-28 17:36] LABS: Glucose - Point of Care 175 mg/dl (70-99)
--- NOTE | 2025-04-28 18:04 | CM ---
F/U: Patient came over from the ICU last night. No indication that patient is ready. PT/OT saw patient today and recommend SNF. Called the who asked about [facility] and told him that his does not meet the criteria for this type of rehab, but
there are SNF in the community that families can choose from. Mr. Zazueta said that he wants to talk to his tomorrow and so GOMEZ Eaton told him that one of GOMEZ's colleague may reach out to ask if there are facilities he/ patient are interested in.
PLAN: Home vs. SNF
[2025-04-28] MEDS: KCL 40 MEQ PO (18:07)
[2025-04-28] MEDS: REMOVE LIDOCAINE PATCH 1 PATCH REMOVE (19:48)
[2025-04-28 22:00] LABS: Glucose - Point of Care 179 mg/dl (70-99)
[2025-04-29] VITALS (12 sets, daily range): BP systolic 106–159; BP diastolic 55–83; PULSE 75–78; O2SAT 98–99; BMI 39.2
[2025-04-29] MEDS: HEPARIN 25000 UNITS/250 ML IV (00:39)
[2025-04-29] MEDS: DILAUDID 1 MG IV ×2 (01:07→16:05)
[2025-04-29 01:38] LABS: APTT 80.2 Sec (23.4-35.0)
--- NOTE | 2025-04-29 01:53 | PTCARENOTE ---
Pt c/o 9/10 pain in R flank incision site. 1mg IV dilaudid given at 01:07. Pt resting comfortably in bed at this time. VSS. Care ongoing.
[2025-04-29] MEDS: MAXIPIME 1000 MG IV ×3 (05:30→23:02)
[2025-04-29] MEDS: ROXICODONE 20 MG PO ×4 (05:30→23:02)
[2025-04-29] MEDS: STERILE WATER FOR INJECTION 10 ML IV ×3 (05:31→23:02)
--- NOTE | 2025-04-29 07:32 | PN.DE.MGMTRT ---
Insulin Management
- -
04/29/2025: Diabetes Management Follow up
Patient admitted with c/o increasing SOB since Friday, 04/20. 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
wedge Resection & Mediastinal Lymph Node Dissection by Dr Banuelos 04/15. On admission she was found to be saturating at 70%. Chest x-ray revealed possible right sided pneumonia. She was tried on BiPAP, developed hypotension received IV fluids with good
response. NEW finding of R & L peroneal vein DVT.
Prior to admission was taking Glimepiride 1mg daily @ and Mounjaro 5 on Sundays.
She states that she was seeing Endo Dr. Neil and had been taking Jardiance 25mg daily Metformin 1000mg BID and Glimepiride 2mg but the Jardiance and Metformin were discontinued, and the glimepiride was reduced to 1mg daily 3 weeks ago due to CKD.
A1C 8.1%, Cr 1.6, eGFR 34.48.
Pt awake, alert, oriented, sitting up in bed, offers no complaints, on O2 via NC, able to discuss diabetes care plan.
Patient transitioned from glycemic protocol insulin infusion to 18 units Lantus and 4 units NovoLog AC on 04/27. Cr 1.3, eGFR 44.24 today
She remains on steroids-Hydrocortisone 50 mg IV Q 6 hours. 04/28 premeal glucose range 161 to 175, FBG 116 V, 125 POC today
Will make no change to current regimen. Cont AM Lantus to 20 units and AC NovoLog 6 units with moderate corrective.
Discussed with patient about insulin regimen and importance of staying on insulin given poor kidney function and she was in agreement.
Discussed with nurse. Will cont to follow
Diabetes History
- -
Type of Diabetes: 2 requiring insulin
Pre-Admission Diabetes Regimen
04/28/25
11:24
Creatinine 1.4 H
Lab Results
Hemoglobin A1c 8.1 % (4.0-5.9) H 04/25/25 06:37
Insulin Pump Settings
IP Diabetes Regimen
04/28/25 04/28/25 04/28/25
08:07 11:16 11:24
Glucose 149 H
POC Glucose 214 H 161 H
04/28/25 04/28/25
17:25 21:49
Glucose
POC Glucose 175 H 179 H
Meal type: Breakfast
Amount consumed: 75%
Patient Education
[2025-04-29 08:03] LABS: APTT 75.1 Sec (23.4-35.0)
[2025-04-29] MEDS: DUONEB 3 ML INH ×4 (08:06→19:16)
[2025-04-29] MEDS: PULMICORT 0.5 MG INH ×2 (08:06→19:16)
[2025-04-29 08:11] LABS: Blood Urea Nitrogen 22 mg/dl (7-17); Calcium 8.5 mg/dl (8.4-10.2); Carbon Dioxide 23 mmol/L (22-30); Chloride 111 mmol/L (98-107); Estimated Creatinine Clearance 44 ml/min; Glucose 116 mg/dl (70-99); Potassium 3.8 mmol/L (3.5-5.1); Sodium 138 mmol/L (135-145); eGFR 44.24
[2025-04-29 08:14] LABS: Hematocrit 24.9 % (37.0-47.0); Hemoglobin 8.0 g/dL (12.0-16.0); Mean Corp Hgb Conc. 32.1 g/dL (33.0-37.0); Mean Corpuscular Volume 91.5 fL (81.0-99.0); Platelet Count 200 10^3/uL (130-400); Red Cell Dist. Width 16.0 % (11.5-14.5)
[2025-04-29] MEDS: MS CONTIN (EXTENDED RELEASE) 15 MG PO ×2 (08:54→20:03)
[2025-04-29 08:57] LABS: Glucose - Point of Care 125 mg/dl (70-99)
[2025-04-29] MEDS: CRESTOR 40 MG PO (09:04)
[2025-04-29] MEDS: CORTEF 10 MG PO ×2 (09:04→20:03)
[2025-04-29] MEDS: ZITHROMAX 500 MG PO (09:04)
[2025-04-29] MEDS: MUCINEX 600 MG PO ×2 (09:04→20:03)
[2025-04-29] MEDS: COREG 6.25 MG PO ×2 (09:05→20:03)
[2025-04-29] MEDS: NOVOLOG FLEXPEN-MODERATE RESISTANCE SC ×3 (09:07→18:29)
[2025-04-29] MEDS: LIDOCAINE 4% PATCH 1 PATCH TOPICAL (09:27)
[2025-04-29] MEDS: LANTUS 0.2 UNITS SC (09:28)
[2025-04-29] MEDS: NOVOLOG FLEXPEN 6 UNITS SC ×3 (09:29→18:29)
--- NOTE | 2025-04-29 09:31 | W.PN.HOSP.TC ---
Today's Communication/Plan
-
DC IV Heparin gtt
Start Eliquis
Start IV Iron
Encourage spirometry/ ambulation
Wean down nasal O2
ok to give Lasix ( still above dry weight)
c/w current pain regimen ( high tolerance to opioid)
Assessment / Plan
Assessment / Plan
Physical Exam
General: Nasal O2, not in distress, able to speak in full sentences
HEENT: Normocephalic, Atraumatic
Respiratory: better air entry today , bruising around right chest wall
Cardiac: S1/S2
GI: Soft and Non Distended
Genito-urinary: No Spicer
Musculoskeletal: No Clubbing and No Edema
Skin: Warm
Neuro: AO x 3 and Nonfocal/grossly intact
Psych: calm, Intact Judgment/Insight
# Acute Hypoxic respiratory failure due to pneumonia vs Atelectasis required assisted ventilation
Acute respiratory acidosis and metabolic acidosis
Good clinical improvement
High pulmonary artery pressure
O2 down to 5 liters, SaO2 around 94% - 96%
Off Bipap
s/p thoracentesis for moderate right pleural effusion on 04/27
-Blood culture No growth
-Started on vancomycin and Zosyn for now then on Cefepime & Zithromax.
-Elevated procalcitonin
- Negative COVID & Flu . MRSA screen is negative
- History of asthma, minimal wheezing at this time, dc IV steroid ( might be causing anxiety), will taper down slowly. c/w breathing treatments.
- Appreciate pulmonary/ ID help
Anion gap metabolic lactic acidosis with some residual respiratory acidosis - Hyperglycemia>600 and AGAP acidosis suggests DKA, AG explained by lactic acidosis of 12. bHB 0.38. Unlikely DKA. The respiratory component mostly resolved with NIPPV (ABG
7.2/37/14).
HHS, blood glucose > 600, recent hx of high sugar intake, sepsis and non-compliance with antidiabetic regimen
- s/p insulin gtt for HHS not DKA
- s/p aggressive fluid resuscitation
Resolved.
# JOHNNY on CKD IIIB
GFR around baseline
Holding Losartan
Volume overload: given Lasix.
Monitor for retention, treat anemia/ low BP
# Hyponatremia
# Acute right and left peroneal vein DVT
s/p IV heparin gtt
Monitored PTT
d/w pt regarding oral AC therapy, she chose direct anti-coagulants, will do Eliquis
# S/P Wedge Resection of the Right Lower Lobe Lung Cancer & Mediastinal Lymph Node Dissection by Dr Banuelos 04/15
# Anemia of chronic disease due to underlying CKD stage IIIb
chronic anemia ( HGB around 10 in December 2024) acute on chronic anemia with
Acute blood loss anemia postsurgery and bruising of chest wall ( 10X 12 cm)
s/p 2 units of blood transfusion on 04/26. Patient signed consent.
Will do V iron
# chronic pain syndrome with opioid dependency
Acute on chronic pain
reports poorly controlled with oxy , c/w long acting oral morphine
# Troponin elevation c/w non ischemic troponin elevation due to hypoxia
no known h/o CAD. No recent CP.
- trend troponin is down
- echo of heart: Normal left ventricular size and systolic function with LV ejection fraction visually estimated 60 to 65% and mild LVH.
# Sepsis POA/ Septic shock: Resolved.
Hx of Hypertension
- Held BP meds
- Started on stress dose steroid now tapering then off
- Resumed Coreg
Diabetes / DKA-
- on insulin gtt, off now, started on SQ insulin with pre-meal & Lantus.
- diabetes CUTTER OPERATOR consulted, help appreciated.
History of CVA
- Continue statin and ezetimibe
DVT prophylaxis� heparin sq
CODE STATUS�full code
Total time spent to see the patient, examined the patient, review data and lab result, discuss treatment plan with patient, nursing staff, consultants around 55 minutes
Anticipated Discharge: > 48 hours
Subjective/Interval History
-
Date of Service: April 29, 2025
She feels better
no worsening sob
less cough
pain medicine is working for her
Objective Data
-
Labs:
Laboratory Results
04/29/25 04/29/25
01:17 07:25
WBC 10.6
Hgb 8.0 L
Hct 24.9 L
Plt Count 200
APTT 80.2 H 75.1 H
Sodium 138
Potassium 3.8
Chloride 111 H
Carbon Dioxide 23
BUN 22 H
Creatinine 1.3 H
Glucose 116 H
Calcium 8.5
Vital Signs:
Vital Signs
Temp Pulse Resp BP Pulse Ox
99.1 F 76 23 140/59 96
04/29/25 07:52 04/29/25 08:08 04/29/25 08:08 04/29/25 06:00 04/29/25 08:08
I&O
04/28/25 04/29/25 04/30/25
06:59 06:59 06:59
Intake Total 835.5 / 835.5 1200 / 1200
Output Total 3525 / 3525 1800 / 1800
Balance -2689.5 / -2689.5 -600 / -600
--- NOTE | 2025-04-29 09:51 | W.PN.INTV ---
Today's Communication / Plan
Recommendations
Continue with airway clearance measures
Antibiotics per ID
Wean steroids to off
Continue to wean oxygen, may require home oxygen at time of discharge
Transition to oral anticoagulation, continue for at least 3 months
Patient will require pulmonary follow-up. She does not see an outpatient spinner cap frame
Follow-up information left in chart
We will sign off. Please call with questions
Assessment
-
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
hypertension, brain aneurysm s/p clipping and CVA who presented to the ED via EMS on 04/25/2025 with difficulty breathing ongoing for 1 week found to have a BG of >600 with an anion gap of 19 and lactic acid of 12 who was admitted to the for
acute hypoxic respiratory failure and DKA vs HHS.
Plan/recommendations:
Acute Hypoxic Respiratory Failure due to Pneumonia vs Atelectasis
Respiratory Acidosis
Right Lower Lobe Squamous Cell Lung Cancer s/p Wedge resection 03/2025
History of Stage IB lung cancer s/p left upper lobe resection in 2022
Overall chest x-ray with improved right lung aeration
Currently on Azithromycin and Cefepime
ID following
Follow blood cultures. One positive for likely contaminant
Wean steroids to off
Continue aspiration precautions, keeping head of the bed >30-45 degrees
Continue with Mucinex, airway clearance
Will discontinue nocturnal BiPAP, patient cannot tolerate
Chest x-ray 04/28 much improved
Provided updates to surgeon that performed recent wedge resection on 04/25
Wean oxygen. Will need assessment for home oxygen
Acute Kidney Injury
Patient's creatinine 1.6, improved to 1.3
Nephrology following
Elevated Troponin
Troponin 0.048 on admission, increased to 0.086, downtrended to 0.074
Suspect demand ischemia in the setting of hypoxic respiratory failure
Echo 04/25: Normal left ventricular size and systolic function with LV ejection fraction visually estimated 60 to 65% and mild LVH. Estimated pulmonary artery systolic pressure 52 mmHg assuming a right atrial pressure of 10 mmHg. No pericardial
effusion. Prominent anterior fat pad present.
Bilateral DVT
Patient transition to oral therapy
Recommend 3 to 6 months of treatment, further treatment can be determined as outpatient
Recommend pulmonary follow-up
Out of bed to chair, ambulate, PT/OT
Assess for home oxygen
Pulmonary follow-up instructions left in chart
We will sign off. Please call with questions
Subjective Dataa
Subjective Data
Date of Service:
Date of Service: April 29, 2025
Chief Complaint: Sterilization Technician Follow Up
Subjective:
Patient did not use BiPAP overnight. Feeling well. Adequate cough. Denies nausea, abdominal pain. Pain is controlled at this time
Objective Data
Data Reviewed
Vital Signs / I&O / Oxygen:
Vital Signs
Temp Pulse Resp BP Pulse Ox
99.1 F 70 17 141/64 93
04/29/25 07:52 04/29/25 09:00 04/29/25 09:00 04/29/25 08:00 04/29/25 09:33
Intake and Output
04/28/25 04/29/25 04/30/25
06:59 06:59 06:59
Intake Total 835.5 / 835.5 1200 / 1200
Output Total 3525 / 3525 1800 / 1800
Balance -2689.5 / -2689.5 -600 / -600
SaO2 [NIV (Non Invasive 96
Ventilation)]
SaO2 93
Nasal Cannula flow liters per 6
minute
Physical Exam
General: Comfortable and Other (PICC line)
HEENT: Normocephalic and Anicteric
Cardiovascular: S1-S2, Regular Rhythm, Murmur (n), Rub (n) and Peripheral Edema (n)
Respiratory: Wheeze (n), Crackles (Mild crackles right base), Rhonchi (n), Non-Labored Respirations and Stridor (n)
GI: Soft, Non Distended (Obese) and Non Tender
Neurology: Awake, Alert and No Motor Deficits (Moves all extremities)
Skin: Good Color, Jaundice (n), Rash (n) and Other (Right posterior chest incision intact)
Labs/Micro/Reports
Lab Data
04/29/25 07:25
04/29/25 07:25
Laboratory Results
04/28/25 04/28/25 04/29/25
09:29 16:35 01:17
APTT 67.4 H 161.3 H* 80.2 H
04/29/25
07:25
APTT 75.1 H
Microbiology
04/25/25 03:33 Blood/Venous Blood Culture - Preliminary
No Growth in 4 days- Final report to follow
04/25/25 03:33 Blood/Venous Blood Culture - Preliminary
Diptheroids
04/25/25 03:33 Blood/Venous Gram Stain - Preliminary
04/25/25 10:37 Urine Urine Culture - Final
NO GROWTH
[2025-04-29] MEDS: TYLENOL 650 MG PO (11:18)
[2025-04-29] MEDS: ELIQUIS 10 MG PO ×2 (11:19→20:03)
--- NOTE | 2025-04-29 11:58 | W.PN.ID1 ---
Date of Service
Date of Service: April 29, 2025
Today's Communication
Continue antibiotics
Assessment / Plan
Right-sided pneumonia
Leukocytosis
Hypoxemic respiratory failure; s/p BiPAP
Bilateral DVTs
Hyperglycemia
Lactic acidosis
Elevated troponin
Bacteriuria
Asthma
Lung cancer
Hx CVA (aneurysm)
HTN
HLD
NIDDM
Chronic back pain
Narcotic dependence
Hx nephrolithiasis
Recommendations:
Continue cefepime (d#6 of 10) and Azithromycin (d#5 of 5)
Repeat blood cultures negative; 04/25 blood culture with gram-positive bacilli (contaminant)
Legionella and pneumococcal antigens negative
Continue with supportive measures.
Monitor white count and temperature curve.
Follow CXR.
����������������������������������������������������������
Chief Complaint
-: Leukocytosis and Pneumonia
Subjective / Review of Systems
Patient seen and examined. Overall feels well. Breathing comfortable. No fevers or chills.
Vital Signs / Physical Exam
Vital Signs
Vital Signs
Temp Pulse Resp BP Pulse Ox
98.7 F 76 18 141/64 96
04/29/25 11:14 04/29/25 11:31 04/29/25 11:31 04/29/25 08:00 04/29/25 11:31
Physical Exam
Constitutional: No Acute Distress, Comfortable and Non-toxic
Eyes: Sclera Anicteric
Cardiovascular: Regular Rate and S1/S2; Negative S3/S4
Pulmonary: Clear, Coarse and Non Labored
Gastrointestinal: Soft, Non Distended and Normal Bowel Sounds
Genito-Urinary: Spicer and Clear Urine
Extremities: Negative Edema or Cyanosis
Neurological: Awake and Alert
Psychological: Calm
Objective Data
Lab Data
Lab Results
04/29/25 07:25
04/29/25 07:25
PT 15.9 Sec (11.4-14.6) H 04/25/25 04:17
INR 1.24 04/25/25 04:17
APTT 75.1 Sec (23.4-35.0) H 04/29/25 07:25
Estimated Creat Clear 44 ml/min 04/29/25 07:25
Lactic Acid 1.4 mmol/L (0.7-2.0) 04/26/25 17:55
Total Bilirubin 0.4 mg/dl (0.2-1.3) 04/28/25 11:24
AST 47 U/L (14-36) H 04/28/25 11:24
ALT 40 U/L (0-35) H 04/28/25 11:24
Alkaline Phosphatase 62 U/L (38-126) 04/28/25 11:24
Most recent labs reviewed.
Micro Results:
04/25/25 03:33 Blood Culture - Preliminary
Blood/Venous No Growth in 4 days- Final report to follow
04/25/25 03:33 Blood Culture - Preliminary
Blood/Venous Diptheroids
Gram Stain - Preliminary
04/25/25 10:37 Urine Culture - Final
Urine NO GROWTH
04/25/25 10:37 Streptococcus pneumoniae Antigen (M - Final
Urine Negative for Streptococcus pneumoniae antigen.
A negative result does not exclude infection with
Streptococcus pneumoniae. Clinical correlation is
recommended.
04/25/25 10:37 Legionella Urinary Antigen - Final
Urine Negative for Legionella pneumophila Serogroup 1 antigen.
A negative result does not rule out the possiblity of
Legionella infection due to other serogroups or species of
Legionella. Clinical correlation is recommended.
04/25/25 04:17 Nasal Screen MRSA (PCR) - Final
Nose MRSA not detected - performed by PCR methodology.
04/25/25 02:20 Influenza Types A & B (JAYSHREE) - Final
Nasal Swab Negative for Influenza A & B, NAAT
Negative results must be combined with clinical observations
and patient history.
Nucleic Acid Amplification test (NAAT)performed on the
[employer] platform.
Imaging:
04/28/2025 CXR (portable): patchy bibasilar opacities suggestive of pneumonia versus subsegmental atelectasis. No significant changes compared to prior study. Small right pleural effusion is noted. Please see full dictation for additional detail.
08/27/2024 CXR (portable): volume loss in the right hemithorax. Worsening aeration of the right lung compared to prior chest x-ray. Minimal linear opacity at the left lung base. Please see full dictation for additional detail.
--- NOTE | 2025-04-29 12:30 | PTCARENOTE ---
Heparin drip d/c and patient started on eliquis. Patient reports incisional pain at right flank and chronic lower back pain. Medicating patient with pain medications as ordered. Right flank steri strips intact. Larrge area of ecchymosis noted.
[2025-04-29 13:23] LABS: Glucose - Point of Care 134 mg/dl (70-99)
--- NOTE | 2025-04-29 14:52 | W.PN.NEPH.PH ---
Today's Communication / Plan
-
Oral Lasix
Assessment/Plan
-
Assessment
JOHNNY
Hypotension
Right side lung infiltrate, effusion
Chronic pain syndrome
Sepsis
Diabetes mellitus type 2, hyperglycemia
Bilateral peroneal vein DVT
Anemia
Lung cancer status post right lower lobe wedge resection 04/15/2025, left upper lobe wedge resection 2022
History of stroke, brain aneurysm status post clipping
Lactic acidosis
Hypoalbuminemia
proteinuria
Plan:
P.o. Lasix 80 mg today
Follow BMP
Follow hemoglobin
Voiding trial when able
-
-
Date of Service: April 29, 2025
CC / HPI / ROS
-
Chief Complaint:
JOHNNY
History of Present Illness:
JOHNNY/creatinine down to 1.3
Sodium up to 138
Acidosis resolved
Potassium normal
BP stable off pressors
Review of Systems:
no cp
Shortness of breath stable
Labs
-
Labs:
WBC 10.6 10^3/uL (4.8-10.8) 04/29/25 07:25
RBC 2.72 10^6/uL (4.20-5.40) L 04/29/25 07:25
Hgb 8.0 g/dL (12.0-16.0) L 04/29/25 07:25
Hct 24.9 % (37.0-47.0) L 04/29/25 07:25
Plt Count 200 10^3/uL (130-400) 04/29/25 07:25
Sodium 138 mmol/L (135-145) 04/29/25 07:25
Potassium 3.8 mmol/L (3.5-5.1) 04/29/25 07:25
Chloride 111 mmol/L (98-107) H 04/29/25 07:25
Carbon Dioxide 23 mmol/L (22-30) 04/29/25 07:25
BUN 22 mg/dl (7-17) H 04/29/25 07:25
Creatinine 1.3 mg/dL (0.6-1.0) H 04/29/25 07:25
eGFR 44.24 04/29/25 07:25
Glucose 116 mg/dl (70-99) H 04/29/25 07:25
Calcium 8.5 mg/dl (8.4-10.2) 04/29/25 07:25
Phosphorus 6.6 mg/dl (2.5-4.5) H 04/25/25 03:01
Tza-M-Kjzpzrvgyem Pept 1410 pg/ml 04/25/25 01:06
Albumin 2.7 g/dl (3.5-5.0) L 04/28/25 11:24
Physical Exam
-
Vital Signs:
Vital Signs
Temp Pulse Resp BP Pulse Ox
98.7 F 70 23 147/80 96
04/29/25 11:14 04/29/25 12:00 04/29/25 12:00 04/29/25 10:00 04/29/25 12:00
Cardiovascular:: Regular rate and rhythm
Respiratory:: Bilateral: Coarse
Lung Excursion:: Normal
Abdomen:: Nontender and Soft
Bowel Sounds:: Normal
Extremity Edema:: +1: Bilateral:
[2025-04-29] MEDS: FERRLECIT 110 MG IV (15:51)
[2025-04-29] MEDS: LASIX 80 MG PO (15:51)
--- NOTE | 2025-04-29 16:17 | CM ---
Therapy recommendation for SNF. Patient has declined in the past. Family wants patient to go. Family will discuss with patient and make decision.
[2025-04-29 17:53] LABS: Glucose - Point of Care 132 mg/dl (70-99)
--- NOTE | 2025-04-29 18:00 | PTCARENOTE ---
Patient out of bed to chair. Assist x1 and rolling walker. Worked with PT today. Tolerated OOB to chair for several hours today. Spicer catheter draining clear yellow. Spicer to be d/c in AM.
[2025-04-29] MEDS: REMOVE LIDOCAINE PATCH 1 PATCH REMOVE (20:05)
[2025-04-29 21:32] LABS: Glucose - Point of Care 143 mg/dl (70-99)
[2025-04-30] VITALS (13 sets, daily range): BP systolic 110–165; BP diastolic 57–98; BMI 33.5
[2025-04-30] MEDS: DILAUDID 0.5 MG IV (01:16)
--- NOTE | 2025-04-30 01:27 | PTCARENOTE ---
Pt c/o 6/10 pain in R breast. 0.5mg dilaudid IV given.
[2025-04-30] MEDS: MAXIPIME 1000 MG IV ×3 (05:08→20:52)
[2025-04-30] MEDS: STERILE WATER FOR INJECTION 10 ML IV ×3 (05:09→20:52)
[2025-04-30] MEDS: ROXICODONE 20 MG PO ×3 (05:09→17:54)
[2025-04-30 05:32] LABS: Hematocrit 29.1 % (37.0-47.0); Hemoglobin 9.2 g/dL (12.0-16.0); Mean Corp Hgb Conc. 31.6 g/dL (33.0-37.0); Mean Corpuscular Volume 92.7 fL (81.0-99.0); Platelet Count 218 10^3/uL (130-400); Red Cell Dist. Width 15.9 % (11.5-14.5)
[2025-04-30 05:55] LABS: Blood Urea Nitrogen 24 mg/dl (7-17); Calcium 8.9 mg/dl (8.4-10.2); Carbon Dioxide 26 mmol/L (22-30); Chloride 105 mmol/L (98-107); Estimated Creatinine Clearance 47 ml/min; Glucose 117 mg/dl (70-99); Potassium 3.8 mmol/L (3.5-5.1); Sodium 136 mmol/L (135-145); eGFR 48.70
[2025-04-30] MEDS: PULMICORT 0.5 MG INH ×2 (07:31→19:32)
[2025-04-30] MEDS: DUONEB 3 ML INH ×4 (07:31→19:32)
[2025-04-30] MEDS: ELIQUIS 10 MG PO ×2 (08:26→19:36)
[2025-04-30] MEDS: TYLENOL 650 MG PO (08:27)
[2025-04-30] MEDS: MS CONTIN (EXTENDED RELEASE) 15 MG PO ×2 (08:27→19:38)
[2025-04-30] MEDS: CRESTOR 40 MG PO (08:27)
[2025-04-30] MEDS: ZITHROMAX 500 MG PO (08:27)
[2025-04-30] MEDS: MUCINEX 600 MG PO ×2 (08:27→19:36)
[2025-04-30] MEDS: COREG 6.25 MG PO ×2 (08:27→19:38)
[2025-04-30] MEDS: NOVOLOG FLEXPEN-MODERATE RESISTANCE SC (08:32)
[2025-04-30] MEDS: LIDOCAINE 4% PATCH 1 PATCH TOPICAL (08:32)
[2025-04-30] MEDS: LANTUS 0.2 UNITS SC (08:32)
[2025-04-30 08:46] LABS: Glucose - Point of Care 139 mg/dl (70-99)
--- NOTE | 2025-04-30 09:04 | W.PN.ID1 ---
Date of Service
Date of Service: April 30, 2025
Today's Communication
Continue antibiotics. See below�
Assessment / Plan
Right-sided pneumonia
Leukocytosis
Hypoxemic respiratory failure; s/p BiPAP
Bilateral DVTs
Hyperglycemia
Lactic acidosis
Elevated troponin
Bacteriuria
Asthma
Lung cancer
Hx CVA (aneurysm)
HTN
HLD
NIDDM
Chronic back pain
Narcotic dependence
Hx nephrolithiasis
Recommendations:
Continue cefepime (d#7 of 10). S/P 5 day course of Azithromycin
Repeat blood cultures negative; 04/25 blood culture with gram-positive bacilli (contaminant)
Legionella and pneumococcal antigens negative
Continue with supportive measures.
Monitor white count and temperature curve.
Follow CXR.
����������������������������������������������������������
Chief Complaint
-: Leukocytosis and Pneumonia
Subjective / Review of Systems
Review of Systems: No Fever, No Chills, No Cough and No Sputum Production
Vital Signs / Physical Exam
Vital Signs
Vital Signs
Temp Pulse Resp BP Pulse Ox
98.9 F 73 15 135/72 97
04/30/25 07:30 04/30/25 07:32 04/30/25 07:32 04/30/25 04:00 04/30/25 07:32
Physical Exam
Constitutional: No Acute Distress, Comfortable and Non-toxic
Eyes: Sclera Anicteric
Cardiovascular: Regular Rate and S1/S2; Negative S3/S4
Pulmonary: Clear, Coarse and Non Labored
Gastrointestinal: Soft, Non Distended and Normal Bowel Sounds
Extremities: Negative Edema or Cyanosis
Neurological: Awake and Alert
Psychological: Calm
Objective Data
Lab Data
Lab Results
04/30/25 05:05
04/30/25 05:05
PT 15.9 Sec (11.4-14.6) H 04/25/25 04:17
INR 1.24 04/25/25 04:17
APTT 75.1 Sec (23.4-35.0) H 04/29/25 07:25
Estimated Creat Clear 47 ml/min 04/30/25 05:05
Lactic Acid 1.4 mmol/L (0.7-2.0) 04/26/25 17:55
Total Bilirubin 0.4 mg/dl (0.2-1.3) 04/28/25 11:24
AST 47 U/L (14-36) H 04/28/25 11:24
ALT 40 U/L (0-35) H 04/28/25 11:24
Alkaline Phosphatase 62 U/L (38-126) 04/28/25 11:24
Most recent labs reviewed.
Micro Results:
04/25/25 03:33 Blood Culture - Final
Blood/Venous No Growth - Final Report
04/25/25 03:33 Blood Culture - Preliminary
Blood/Venous Diptheroids
Gram Stain - Preliminary
04/25/25 10:37 Urine Culture - Final
Urine NO GROWTH
04/25/25 10:37 Streptococcus pneumoniae Antigen (M - Final
Urine Negative for Streptococcus pneumoniae antigen.
A negative result does not exclude infection with
Streptococcus pneumoniae. Clinical correlation is
recommended.
04/25/25 10:37 Legionella Urinary Antigen - Final
Urine Negative for Legionella pneumophila Serogroup 1 antigen.
A negative result does not rule out the possiblity of
Legionella infection due to other serogroups or species of
Legionella. Clinical correlation is recommended.
04/25/25 04:17 Nasal Screen MRSA (PCR) - Final
Nose MRSA not detected - performed by PCR methodology.
04/25/25 02:20 Influenza Types A & B (JAYSHREE) - Final
Nasal Swab Negative for Influenza A & B, NAAT
Negative results must be combined with clinical observations
and patient history.
Nucleic Acid Amplification test (NAAT)performed on the
[employer] platform.
Imaging:
04/28/2025 CXR (portable): patchy bibasilar opacities suggestive of pneumonia versus subsegmental atelectasis. No significant changes compared to prior study. Small right pleural effusion is noted. Please see full dictation for additional detail.
08/27/2024 CXR (portable): volume loss in the right hemithorax. Worsening aeration of the right lung compared to prior chest x-ray. Minimal linear opacity at the left lung base. Please see full dictation for additional detail.
Chest X-Ray: Image Reviewed and Report Reviewed
--- NOTE | 2025-04-30 09:28 | W.PN.HOSP.TC ---
Today's Communication/Plan
-
.
Assessment / Plan
Assessment / Plan
Physical Exam
General: Nasal O2, not in distress, able to speak in full sentences
HEENT: Normocephalic, Atraumatic
Respiratory: better air entry today , bruising around right chest wall
Cardiac: S1/S2
GI: Soft and Non Distended
Genito-urinary: No Spicer
Musculoskeletal: No Clubbing and No Edema
Skin: Warm
Neuro: AO x 3 and Nonfocal/grossly intact
Psych: calm, Intact Judgment/Insight
# Acute Hypoxic respiratory failure due to pneumonia vs Atelectasis required assisted ventilation
Acute respiratory acidosis and metabolic acidosis
Good clinical improvement
High pulmonary artery pressure
O2 down to 4-5 liters, SaO2 around 94% - 96%
Off Bipap
s/p thoracentesis for moderate right pleural effusion on 04/27
-Blood culture No growth
-Started on vancomycin and Zosyn for now then on Cefepime & Zithromax.
-Elevated procalcitonin
- Negative COVID & Flu . MRSA screen is negative
- History of asthma, minimal wheezing at this time, dc IV steroid ( might be causing anxiety), will taper down slowly. c/w breathing treatments.
- Appreciate pulmonary/ ID help
Anion gap metabolic lactic acidosis with some residual respiratory acidosis - Hyperglycemia>600 and AGAP acidosis suggests DKA, AG explained by lactic acidosis of 12. bHB 0.38. Unlikely DKA. The respiratory component mostly resolved with NIPPV (ABG
7.2//).
HHS, blood glucose > 600, recent hx of high sugar intake, sepsis and non-compliance with antidiabetic regimen
- s/p insulin gtt for HHS not DKA
- s/p aggressive fluid resuscitation
Resolved.
# JOHNNY on CKD IIIB
GFR around baseline . Creatinine down to 1.2
Holding Losartan
Volume overload: given Lasix.
Monitored for retention, treat anemia/ low BP
# Hyponatremia
# Acute right and left peroneal vein DVT
s/p IV heparin gtt
Monitored PTT
d/w pt regarding oral AC therapy, she chose direct anti-coagulants, will do Eliquis
# S/P Wedge Resection of the Right Lower Lobe Lung Cancer & Mediastinal Lymph Node Dissection by Dr Banuelos 04/15
# Anemia of chronic disease due to underlying CKD stage IIIb
chronic anemia ( HGB around 10 in December 2024) acute on chronic anemia with
Acute blood loss anemia postsurgery and bruising of chest wall ( 10X 12 cm)
s/p 2 units of blood transfusion on 04/26. Patient signed consent.
I V iron day # 2
# chronic pain syndrome with opioid dependency
Acute on chronic pain
reports poorly controlled with oxy , c/w long acting oral morphine
# Troponin elevation c/w non ischemic troponin elevation due to hypoxia
no known h/o CAD. No recent CP.
- trend troponin is down
- echo of heart: Normal left ventricular size and systolic function with LV ejection fraction visually estimated 60 to 65% and mild LVH.
# Sepsis POA/ Septic shock: Resolved.
Hx of Hypertension
- Held BP meds
- Started on stress dose steroid now tapering then off
- Resumed Coreg
Diabetes / DKA-
- on insulin gtt, off now, started on SQ insulin with pre-meal & Lantus.
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
History of CVA
- Continue statin and ezetimibe
DVT prophylaxis� heparin sq
CODE STATUS�full code
Total time spent to see the patient, examined the patient, review data and lab result, discuss treatment plan with patient, nursing staff, consultants around 55 minutes
Anticipated Discharge: > 48 hours
Subjective/Interval History
-
Date of Service: April 30, 2025
She feels better
No complaints
Objective Data
-
Labs:
Laboratory Results
04/30/25
05:05
WBC 10.4
Hgb 9.2 L
Hct 29.1 L
Plt Count 218
Sodium 136
Potassium 3.8
Chloride 105
Carbon Dioxide 26
BUN 24 H
Creatinine 1.2 H
Glucose 117 H
Calcium 8.9
Vital Signs:
Vital Signs
Temp Pulse Resp BP Pulse Ox
98.9 F 73 15 135/72 97
04/30/25 07:30 04/30/25 07:32 04/30/25 07:32 04/30/25 04:00 04/30/25 07:32
I&O
04/29/25 04/30/25 05/01/25
06:59 06:59 05:59
Intake Total 1200 / 1200 1350 / 1350
Output Total 1800 / 1800 2580 / 2580
Balance -600 / -600 -1230 / -1230
--- NOTE | 2025-04-30 09:44 | PTCARENOTE ---
Received pt from production shift supervisor RN. Pt is Ox3 and appropriate, woke up early, got washed up and is now sitting up in the chair. She is motivated to get better. NSR on tele, 10mg eliquis given. trace edema of the R ankle. 92% on 6L MFNC, breath sounds
with crackles at the bases. Getting IS up to 2200. Spicer removed this morning, pt has urinated a small amount in the BSC since. LBM this morning. Large bruise on the R chest. Stage 2 sacrum with steri strips on her R lateral chest. Pt complains of
pain from her decub, back pain and pain on deep inhalation. IV sites intact, call vidal within reach.
[2025-04-30] MEDS: NOVOLOG FLEXPEN 6 UNITS SC ×3 (10:36→17:54)
[2025-04-30] MEDS: FERRLECIT 110 MG IV (12:25)
--- NOTE | 2025-04-30 12:26 | W.PN.NEPH.PH ---
Today's Communication / Plan
-
follow BMP
Assessment/Plan
-
Assessment
JOHNNY
Hypotension
Right side lung infiltrate, effusion
Chronic pain syndrome
Sepsis
Diabetes mellitus type 2, hyperglycemia
Bilateral peroneal vein DVT
Anemia
Lung cancer status post right lower lobe wedge resection 04/15/2025, left upper lobe wedge resection 2022
History of stroke, brain aneurysm status post clipping
Lactic acidosis
Hypoalbuminemia
proteinuria
Plan:
lasix prn, would use 40mg if needed
Follow BMP
Follow hemoglobin
Voiding trial today
-
-
Date of Service: April 30, 2025
CC / HPI / ROS
-
Chief Complaint:
JOHNNY
History of Present Illness:
JOHNNY/creatinine down to 1.2
Sodium up to 136
Acidosis resolved
Potassium normal
BP stable off pressors
Review of Systems:
no cp
Shortness of breath stable
Labs
-
Labs:
WBC 10.4 10^3/uL (4.8-10.8) 04/30/25 05:05
RBC 3.14 10^6/uL (4.20-5.40) L 04/30/25 05:05
Hgb 9.2 g/dL (12.0-16.0) L 04/30/25 05:05
Hct 29.1 % (37.0-47.0) L 04/30/25 05:05
Plt Count 218 10^3/uL (130-400) 04/30/25 05:05
Sodium 136 mmol/L (135-145) 04/30/25 05:05
Potassium 3.8 mmol/L (3.5-5.1) 04/30/25 05:05
Chloride 105 mmol/L (98-107) 04/30/25 05:05
Carbon Dioxide 26 mmol/L (22-30) 04/30/25 05:05
BUN 24 mg/dl (7-17) H 04/30/25 05:05
Creatinine 1.2 mg/dL (0.6-1.0) H 04/30/25 05:05
eGFR 48.70 04/30/25 05:05
Glucose 117 mg/dl (70-99) H 04/30/25 05:05
Calcium 8.9 mg/dl (8.4-10.2) 04/30/25 05:05
Phosphorus 6.6 mg/dl (2.5-4.5) H 04/25/25 03:01
Wzd-U-Xrluwhepczu Pept 1410 pg/ml 04/25/25 01:06
Albumin 2.7 g/dl (3.5-5.0) L 04/28/25 11:24
Physical Exam
-
Vital Signs:
Vital Signs
Temp Pulse Resp BP Pulse Ox
98.9 F 65 20 135/72 92
04/30/25 07:30 04/30/25 11:19 04/30/25 11:19 04/30/25 04:00 04/30/25 11:50
Cardiovascular:: Regular rate and rhythm
Respiratory:: Bilateral: Coarse
Lung Excursion:: Normal
Abdomen:: Nontender and Soft
Bowel Sounds:: Normal
Extremity Edema:: None: Bilateral:
[2025-04-30 12:51] LABS: Glucose - Point of Care 158 mg/dl (70-99)
[2025-04-30] MEDS: NOVOLOG FLEXPEN-MODERATE RESISTANCE 1 UNITS SC ×2 (15:18→17:55)
[2025-04-30 17:21] LABS: Glucose - Point of Care 157 mg/dl (70-99)
[2025-04-30] MEDS: REMOVE LIDOCAINE PATCH 1 PATCH REMOVE (20:51)
[2025-04-30] MEDS: ZOFRAN 4 MG IV (20:52)
[2025-04-30 22:15] LABS: Glucose - Point of Care 136 mg/dl (70-99)
[2025-05-01] VITALS (16 sets, daily range): BP systolic 101–168; BP diastolic 47–77; PULSE 73; O2SAT 94; BMI 37.9
[2025-05-01] MEDS: ROXICODONE 20 MG PO ×4 (00:33→18:35)
[2025-05-01 04:17] LABS: Blood Urea Nitrogen 28 mg/dl (7-17); Calcium 9.1 mg/dl (8.4-10.2); Carbon Dioxide 27 mmol/L (22-30); Chloride 105 mmol/L (98-107); Estimated Creatinine Clearance 37 ml/min; Glucose 138 mg/dl (70-99); Potassium 4.0 mmol/L (3.5-5.1); Sodium 135 mmol/L (135-145); eGFR 40.47
[2025-05-01] MEDS: MAXIPIME 1000 MG IV ×3 (05:18→22:29)
[2025-05-01] MEDS: STERILE WATER FOR INJECTION 10 ML IV ×3 (05:28→22:29)
[2025-05-01] MEDS: PULMICORT 0.5 MG INH ×2 (07:41→19:54)
[2025-05-01] MEDS: DUONEB 3 ML INH ×4 (07:41→19:54)
[2025-05-01] MEDS: COREG 6.25 MG PO ×2 (08:05→20:38)
[2025-05-01] MEDS: MUCINEX 600 MG PO ×2 (08:06→20:38)
[2025-05-01] MEDS: ELIQUIS 10 MG PO ×2 (08:06→20:37)
[2025-05-01] MEDS: CRESTOR 40 MG PO (08:06)
[2025-05-01] MEDS: LASIX 40 MG PO ×2 (08:06→12:40)
[2025-05-01] MEDS: MS CONTIN (EXTENDED RELEASE) 15 MG PO ×2 (08:06→20:38)
[2025-05-01] MEDS: LANTUS 0.2 UNITS SC (08:07)
[2025-05-01] MEDS: TYLENOL 1000 MG PO ×2 (08:07→20:38)
[2025-05-01] MEDS: LIDOCAINE 4% PATCH 1 PATCH TOPICAL (08:07)
[2025-05-01] MEDS: NOVOLOG FLEXPEN-MODERATE RESISTANCE SC (08:08)
[2025-05-01 08:19] LABS: Glucose - Point of Care 129 mg/dl (70-99)
--- NOTE | 2025-05-01 08:56 | W.PN.ID1 ---
Date of Service
Date of Service: May 01, 2025
Today's Communication
Continue current antibiotics per
Assessment / Plan
Right-sided pneumonia
Leukocytosis
Hypoxemic respiratory failure; s/p BiPAP
Bilateral DVTs
Hyperglycemia
Lactic acidosis
Elevated troponin
Bacteriuria
Asthma
Lung cancer
Hx CVA (aneurysm)
HTN
HLD
NIDDM
Chronic back pain
Narcotic dependence
Hx nephrolithiasis
Recommendations:
Continue cefepime (d#8 of 10). S/P a 5-day course of Azithromycin
Repeat blood cultures negative; 04/25 blood culture with gram-positive bacilli (contaminant)
Legionella and pneumococcal antigens negative
Continue with supportive measures.
Monitor white count and temperature curve.
Follow CXR.
����������������������������������������������������������
Chief Complaint
-: Leukocytosis and Pneumonia
Subjective / Review of Systems
Review of Systems: No Fever and No Chills
Vital Signs / Physical Exam
Vital Signs
Vital Signs
Temp Pulse Resp BP Pulse Ox
99.0 F 70 16 101/47 94
05/01/25 03:44 05/01/25 07:42 05/01/25 07:42 05/01/25 06:00 05/01/25 08:17
Physical Exam
Constitutional: No Acute Distress, Comfortable and Non-toxic
Eyes: Sclera Anicteric
Cardiovascular: Regular Rate and S1/S2; Negative S3/S4
Pulmonary: Clear, Coarse and Non Labored
Gastrointestinal: Soft, Non Distended and Normal Bowel Sounds
Extremities: Negative Edema or Cyanosis
Neurological: Awake and Alert
Psychological: Calm
Objective Data
Lab Data
Lab Results
04/30/25 05:05
05/01/25 03:35
PT 15.9 Sec (11.4-14.6) H 04/25/25 04:17
INR 1.24 04/25/25 04:17
APTT 75.1 Sec (23.4-35.0) H 04/29/25 07:25
Estimated Creat Clear 37 ml/min 05/01/25 03:35
Lactic Acid 1.4 mmol/L (0.7-2.0) 04/26/25 17:55
Total Bilirubin 0.4 mg/dl (0.2-1.3) 04/28/25 11:24
AST 47 U/L (14-36) H 04/28/25 11:24
ALT 40 U/L (0-35) H 04/28/25 11:24
Alkaline Phosphatase 62 U/L (38-126) 04/28/25 11:24
Most recent labs reviewed.
Micro Results:
04/25/25 03:33 Blood Culture - Final
Blood/Venous No Growth - Final Report
04/25/25 03:33 Blood Culture - Preliminary
Blood/Venous Diptheroids
Gram Stain - Preliminary
04/25/25 10:37 Urine Culture - Final
Urine NO GROWTH
04/25/25 10:37 Streptococcus pneumoniae Antigen (M - Final
Urine Negative for Streptococcus pneumoniae antigen.
A negative result does not exclude infection with
Streptococcus pneumoniae. Clinical correlation is
recommended.
04/25/25 10:37 Legionella Urinary Antigen - Final
Urine Negative for Legionella pneumophila Serogroup 1 antigen.
A negative result does not rule out the possiblity of
Legionella infection due to other serogroups or species of
Legionella. Clinical correlation is recommended.
04/25/25 04:17 Nasal Screen MRSA (PCR) - Final
Nose MRSA not detected - performed by PCR methodology.
04/25/25 02:20 Influenza Types A & B (JAYSHREE) - Final
Nasal Swab Negative for Influenza A & B, NAAT
Negative results must be combined with clinical observations
and patient history.
Nucleic Acid Amplification test (NAAT)performed on the
[employer] platform.
Imaging:
04/28/2025 CXR (portable): patchy bibasilar opacities suggestive of pneumonia versus subsegmental atelectasis. No significant changes compared to prior study. Small right pleural effusion is noted. Please see full dictation for additional detail.
08/27/2024 CXR (portable): volume loss in the right hemithorax. Worsening aeration of the right lung compared to prior chest x-ray. Minimal linear opacity at the left lung base. Please see full dictation for additional detail.
--- NOTE | 2025-05-01 09:24 | W.PN.HOSP.TC ---
Today's Communication/Plan
-
.
Assessment / Plan
Assessment / Plan
Physical Exam
General: Nasal O2, not in distress, able to speak in full sentences
HEENT: Normocephalic, Atraumatic
Respiratory: better air entry, no wheezes. Bruising around right chest wall
Cardiac: S1/S2
GI: Soft and Non Distended
Genito-urinary: No Spicer
Musculoskeletal: No Clubbing and No Edema
Skin: Warm
Neuro: AO x 3 and Nonfocal/grossly intact
Psych: calm, Intact Judgment/Insight
# Acute Hypoxic respiratory failure due to pneumonia vs Atelectasis required assisted ventilation
Acute respiratory acidosis and metabolic acidosis
Good clinical improvement
High pulmonary artery pressure
O2 down to 3-4 liters, SaO2 around 94% - 96%
Off Bipap
s/p thoracentesis for moderate right pleural effusion on 04/27
-Blood culture No growth
-Started on vancomycin and Zosyn for now then on Cefepime & Zithromax.
-Elevated procalcitonin
- Negative COVID & Flu . MRSA screen is negative
- History of asthma, minimal wheezing at this time, dc IV steroid ( might be causing anxiety), will taper down slowly. c/w breathing treatments.
- Appreciate pulmonary/ ID help
Anion gap metabolic lactic acidosis with some residual respiratory acidosis - Hyperglycemia>600 and AGAP acidosis suggests DKA, AG explained by lactic acidosis of 12. bHB 0.38. Unlikely DKA. The respiratory component mostly resolved with NIPPV (ABG
7.2//14).
HHS, blood glucose > 600, recent hx of high sugar intake, sepsis and non-compliance with antidiabetic regimen
- s/p insulin gtt for HHS not DKA
- s/p aggressive fluid resuscitation
Resolved.
# JOHNNY on CKD IIIB
GFR around baseline . Creatinine 1.2-1.4
Holding Losartan
Volume overload: given Lasix.
Monitored for retention, treated anemia/ low BP
# volume overload after IVF resuscitation while dealing with sepsis
Acute non cardiogenic pulmonary edema
s/p Lasix, d/w nephrology. Oral Lasix for now.
Close monitoring of renal function/ K level.
# Hyponatremia
# Acute right and left peroneal vein DVT
s/p IV heparin gtt
Monitored PTT
d/w pt regarding oral AC therapy, she chose direct anti-coagulants, started on Eliquis
# S/P Wedge Resection of the Right Lower Lobe Lung Cancer & Mediastinal Lymph Node Dissection by Dr Banuelos 04/15
# Anemia of chronic disease due to underlying CKD stage IIIb
chronic anemia ( HGB around 10 in December 2024) acute on chronic anemia with
Acute blood loss anemia postsurgery and bruising of chest wall ( 10X 12 cm)
s/p 2 units of blood transfusion on 04/26. Patient signed consent.
I V iron day # 3
# chronic pain syndrome with opioid dependency
Acute on chronic pain
reports poorly controlled with oxy , c/w long acting oral morphine
# Troponin elevation c/w non ischemic troponin elevation due to hypoxia
no known h/o CAD. No recent CP.
- trend troponin is down
- echo of heart: Normal left ventricular size and systolic function with LV ejection fraction visually estimated 60 to 65% and mild LVH.
# Sepsis POA/ Septic shock: Resolved.
Hx of Hypertension
- Held BP meds while low BP
- Started on stress dose steroid now tapering then off
- Resumed Coreg
Diabetes / DKA-
- s/p insulin gtt, off now, started on SQ insulin with pre-meal & Lantus.
- diabetes [employer] consulted, help appreciated.
History of CVA
- Continue statin and ezetimibe
DVT prophylaxis� heparin sq
CODE STATUS�full code
Total time spent to see the patient, examined the patient, review data and lab result, discuss treatment plan with patient, nursing staff, consultants around 55 minutes
Anticipated Discharge: > 48 hours
Subjective/Interval History
-
Date of Service: May 01, 2025
No chest pain
No sob
No fevers
Objective Data
-
Labs:
Laboratory Results
05/01/25
03:35
Sodium 135
Potassium 4.0
Chloride 105
Carbon Dioxide 27
BUN 28 H
Creatinine 1.4 H
Glucose 138 H
Calcium 9.1
Vital Signs:
Vital Signs
Temp Pulse Resp BP Pulse Ox
99.0 F 70 16 101/47 94
05/01/25 03:44 05/01/25 07:42 05/01/25 07:42 05/01/25 06:00 05/01/25 08:17
I&O
04/30/25 05/01/25 05/02/25
06:59 05:59 06:59
Intake Total 1350 / 1350 480 / 480
Output Total 2580 / 2580 250 / 250 100 / 100
Balance -1230 / -1230 230 / 230 -100 / -100
[2025-05-01] MEDS: NOVOLOG FLEXPEN 6 UNITS SC ×3 (10:22→18:36)
--- NOTE | 2025-05-01 11:22 | W.PN.NEPH.PH ---
Today's Communication / Plan
-
lasix
Assessment/Plan
-
Assessment
JOHNNY
Hypotension
Right side lung infiltrate, effusion
Chronic pain syndrome
Sepsis
Diabetes mellitus type 2, hyperglycemia
Bilateral peroneal vein DVT
Anemia
Lung cancer status post right lower lobe wedge resection 04/15/2025, left upper lobe wedge resection 2022
History of stroke, brain aneurysm status post clipping
Lactic acidosis
Hypoalbuminemia
proteinuria
Plan:
d/w patient at length. She is still O2 dependent, but CXR seems to have improved without thoracentesis
will try to diurese more for now, she does not want to go home with supplemental O2
use lasix 80mg po daily, could use IV if I/O not sufficiently negative
Follow BMP
-
-
Date of Service: May 01, 2025
CC / HPI / ROS
-
Chief Complaint:
JOHNNY
History of Present Illness:
JOHNNY/creatinine stable 1.4
Sodium stable 135
Acidosis resolved
Potassium normal
BP stable off pressors
Review of Systems:
no cp
Shortness of breath stable
still on supplemental O2
Labs
-
Labs:
WBC 10.4 10^3/uL (4.8-10.8) 04/30/25 05:05
RBC 3.14 10^6/uL (4.20-5.40) L 04/30/25 05:05
Hgb 9.2 g/dL (12.0-16.0) L 04/30/25 05:05
Hct 29.1 % (37.0-47.0) L 04/30/25 05:05
Plt Count 218 10^3/uL (130-400) 04/30/25 05:05
Sodium 135 mmol/L (135-145) 11/02/25 03:35
Potassium 4.0 mmol/L (3.5-5.1) 05/01/25 03:35
Chloride 105 mmol/L (98-107) 05/01/25 03:35
Carbon Dioxide 27 mmol/L (22-30) 05/01/25 03:35
BUN 28 mg/dl (7-17) H 05/01/25 03:35
Creatinine 1.4 mg/dL (0.6-1.0) H 05/01/25 03:35
eGFR 40.47 05/01/25 03:35
Glucose 138 mg/dl (70-99) H 05/01/25 03:35
Calcium 9.1 mg/dl (8.4-10.2) 05/01/25 03:35
Phosphorus 6.6 mg/dl (2.5-4.5) H 04/25/25 03:01
Qax-N-Oncbxqsczic Pept 1410 pg/ml 04/25/25 01:06
Albumin 2.7 g/dl (3.5-5.0) L 04/28/25 11:24
Physical Exam
-
Vital Signs:
Vital Signs
Temp Pulse Resp BP Pulse Ox
98.4 F 66 17 102/53 95
05/01/25 07:57 05/01/25 11:00 05/01/25 11:00 05/01/25 10:00 05/01/25 11:00
Cardiovascular:: Regular rate and rhythm
Respiratory:: Bilateral: Coarse
Lung Excursion:: Normal
Abdomen:: Nontender and Soft
Bowel Sounds:: Normal
Extremity Edema:: +1: Bilateral:
[2025-05-01] MEDS: FERRLECIT 110 MG IV (12:46)
[2025-05-01] MEDS: NOVOLOG FLEXPEN-MODERATE RESISTANCE 1 UNITS SC ×2 (12:53→18:36)
[2025-05-01 13:02] LABS: Glucose - Point of Care 152 mg/dl (70-99)
[2025-05-01 17:54] LABS: Glucose - Point of Care 158 mg/dl (70-99)
[2025-05-01] MEDS: REMOVE LIDOCAINE PATCH REMOVE (20:53)
[2025-05-01 21:35] LABS: Glucose - Point of Care 201 mg/dl (70-99)
--- NOTE | 2025-05-01 21:45 | PTCARENOTE ---
Assumed care of Pt from dayshift RN after change of shift report. Pt is aaox3. admits to being tired. NSR on monitor. wearing 2L 02, satting 92%, SOB with activity. Deep breathing encouraged. Pt using BSCx1. standing and pivoting slowly with RN
assistance. assessment as documented. call light in reach. safe environment maintained.
[2025-05-01] MEDS: MAXIPIME IV (21:52)
[2025-05-01] MEDS: STERILE WATER FOR INJECTION IV (21:52)
[2025-05-02] VITALS (13 sets, daily range): BP systolic 96–157; BP diastolic 51–75; PULSE 76; O2SAT 95; BMI 37.6
[2025-05-02] MEDS: ROXICODONE 20 MG PO ×4 (01:11→17:48)
[2025-05-02 04:54] LABS: Hematocrit 27.4 % (37.0-47.0); Hemoglobin 8.7 g/dL (12.0-16.0); Mean Corp Hgb Conc. 31.8 g/dL (33.0-37.0); Mean Corpuscular Volume 90.7 fL (81.0-99.0); Platelet Count 256 10^3/uL (130-400); Red Cell Dist. Width 16.4 % (11.5-14.5)
[2025-05-02 05:13] LABS: Blood Urea Nitrogen 31 mg/dl (7-17); Calcium 9.1 mg/dl (8.4-10.2); Carbon Dioxide 26 mmol/L (22-30); Chloride 104 mmol/L (98-107); Estimated Creatinine Clearance 37 ml/min; Glucose 147 mg/dl (70-99); Potassium 3.5 mmol/L (3.5-5.1); Sodium 135 mmol/L (135-145); eGFR 37.26
[2025-05-02] MEDS: STERILE WATER FOR INJECTION 10 ML IV ×3 (06:26→22:04)
[2025-05-02] MEDS: MAXIPIME 1000 MG IV ×3 (06:26→22:04)
--- NOTE | 2025-05-02 07:23 | PN.DE.MGMTRT ---
Insulin Management
- -
05/02/2025: Diabetes Management Follow up
Patient admitted with c/o increasing SOB since Friday, 04/20. 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
wedge Resection & Mediastinal Lymph Node Dissection by Dr Banuelos 04/15. On admission she was found to be saturating at 70%. Chest x-ray revealed possible right sided pneumonia. She was tried on BiPAP, developed hypotension received IV fluids with good
response. NEW finding of R & L peroneal vein DVT.
Prior to admission was taking Glimepiride 1mg daily @ and Mounjaro 5 on Sundays.
She states that she was seeing Endo Dr. Neil and had been taking Jardiance 25mg daily Metformin 1000mg BID and Glimepiride 2mg but the Jardiance and Metformin were discontinued, and the glimepiride was reduced to 1mg daily 3 weeks ago due to CKD.
A1C 8.1%, Cr 1.6, eGFR 34.48.
Pt awake, alert, oriented, sitting up in bed, offers no complaints, on O2 via NC, able to discuss diabetes care plan.
04/27 Patient transitioned from glycemic protocol insulin infusion to 18 units Lantus and 4 units NovoLog AC. Cr 1.3, eGFR 44.24 today
She is off steroids, glucose has improved. 05/01 premeal glucose range 129 to 158, FBG 147 V, 125 POC today
Will make no change to current regimen. Cont AM Lantus to 20 units and AC NovoLog 6 units with moderate corrective.
Discussed with patient about insulin regimen and importance of staying on insulin given poor kidney function and she was in agreement.
Discussed with nurse. Will cont to follow
Diabetes History
- -
Type of Diabetes: 2 requiring insulin
Pre-Admission Diabetes Regimen
05/02/25
04:16
Creatinine 1.5 H
Lab Results
Hemoglobin A1c 8.1 % (4.0-5.9) H 04/25/25 06:37
Insulin Pump Settings
IP Diabetes Regimen
05/01/25 05/01/25 05/01/25
08:08 12:51 17:42
Glucose
POC Glucose 129 H 152 H 158 H
05/01/25 05/02/25
21:25 04:16
Glucose 147 H
POC Glucose 201 H
Patient Education
[2025-05-02] MEDS: PULMICORT 0.5 MG INH ×2 (07:26→19:48)
[2025-05-02] MEDS: DUONEB 3 ML INH ×4 (07:26→19:48)
[2025-05-02] MEDS: CRESTOR 40 MG PO (08:38)
[2025-05-02] MEDS: LIDOCAINE 4% PATCH 1 PATCH TOPICAL (08:39)
[2025-05-02] MEDS: TYLENOL 1000 MG PO ×2 (08:39→19:42)
[2025-05-02] MEDS: ELIQUIS 10 MG PO ×2 (08:39→19:42)
[2025-05-02] MEDS: MUCINEX 600 MG PO ×2 (08:39→19:42)
[2025-05-02] MEDS: MS CONTIN (EXTENDED RELEASE) 15 MG PO ×2 (08:39→19:41)
[2025-05-02] MEDS: COREG 6.25 MG PO ×2 (08:40→19:44)
[2025-05-02] MEDS: LASIX 80 MG PO (08:40)
[2025-05-02 09:23] LABS: Glucose - Point of Care 153 mg/dl (70-99)
[2025-05-02] MEDS: NOVOLOG FLEXPEN-MODERATE RESISTANCE 1 UNITS SC ×3 (09:29→17:48)
[2025-05-02] MEDS: NOVOLOG FLEXPEN 6 UNITS SC ×3 (09:29→17:49)
[2025-05-02] MEDS: LANTUS 0.2 UNITS SC (09:31)
--- NOTE | 2025-05-02 10:13 | W.PN.ID1 ---
Date of Service
Date of Service: May 02, 2025
Today's Communication
Continue antibiotics.
Assessment / Plan
Right-sided pneumonia
Leukocytosis
Hypoxemic respiratory failure; s/p BiPAP
Bilateral DVTs
Hyperglycemia
Lactic acidosis
Elevated troponin
Bacteriuria
Asthma
Lung cancer
Hx CVA (aneurysm)
HTN
HLD
NIDDM
Chronic back pain
Narcotic dependence
Hx nephrolithiasis
Recommendations:
Continue cefepime (d#9 of 10). Patient is s/p a 5-day course of Azithromycin
Low-grade leukocytosis noted today.
Repeat blood cultures negative; 04/25 blood culture with gram-positive bacilli (contaminant)
Legionella and pneumococcal antigens negative
Continue with supportive measures.
Monitor white count and temperature curve.
Follow CXR.
����������������������������������������������������������
Chief Complaint
-: Leukocytosis and Pneumonia
Subjective / Review of Systems
Review of Systems: No Fever, No Chills and No Cough
Vital Signs / Physical Exam
Vital Signs
Vital Signs
Temp Pulse Resp BP Pulse Ox
98.8 F 78 18 120/60 94
05/02/25 08:28 05/02/25 07:29 05/02/25 07:29 05/02/25 06:00 05/02/25 07:29
Physical Exam
Constitutional: No Acute Distress, Comfortable and Non-toxic
Eyes: Sclera Anicteric
Cardiovascular: Regular Rate and S1/S2; Negative S3/S4
Pulmonary: Clear, Coarse and Non Labored
Gastrointestinal: Soft, Non Distended and Normal Bowel Sounds
Genito-Urinary: Negative Spicer
Extremities: Negative Edema or Cyanosis
Neurological: Awake and Alert
Psychological: Calm
Objective Data
Lab Data
Lab Results
05/02/25 04:16
05/02/25 04:16
PT 15.9 Sec (11.4-14.6) H 04/25/25 04:17
INR 1.24 04/25/25 04:17
APTT 75.1 Sec (23.4-35.0) H 04/29/25 07:25
Estimated Creat Clear 37 ml/min 05/02/25 04:16
Lactic Acid 1.4 mmol/L (0.7-2.0) 04/26/25 17:55
Total Bilirubin 0.4 mg/dl (0.2-1.3) 04/28/25 11:24
AST 47 U/L (14-36) H 04/28/25 11:24
ALT 40 U/L (0-35) H 04/28/25 11:24
Alkaline Phosphatase 62 U/L (38-126) 04/28/25 11:24
Most recent labs reviewed.
Micro Results:
04/25/25 03:33 Blood Culture - Final
Blood/Venous Diptheroids
Gram Stain - Final
04/25/25 03:33 Blood Culture - Final
Blood/Venous No Growth - Final Report
04/25/25 10:37 Urine Culture - Final
Urine NO GROWTH
04/25/25 10:37 Streptococcus pneumoniae Antigen (M - Final
Urine Negative for Streptococcus pneumoniae antigen.
A negative result does not exclude infection with
Streptococcus pneumoniae. Clinical correlation is
recommended.
04/25/25 10:37 Legionella Urinary Antigen - Final
Urine Negative for Legionella pneumophila Serogroup 1 antigen.
A negative result does not rule out the possiblity of
Legionella infection due to other serogroups or species of
Legionella. Clinical correlation is recommended.
04/25/25 04:17 Nasal Screen MRSA (PCR) - Final
Nose MRSA not detected - performed by PCR methodology.
04/25/25 02:20 Influenza Types A & B (JAYSHREE) - Final
Nasal Swab Negative for Influenza A & B, NAAT
Negative results must be combined with clinical observations
and patient history.
Nucleic Acid Amplification test (NAAT)performed on the
[employer] platform.
Imaging:
04/28/2025 CXR (portable): patchy bibasilar opacities suggestive of pneumonia versus subsegmental atelectasis. No significant changes compared to prior study. Small right pleural effusion is noted. Please see full dictation for additional detail.
08/27/2024 CXR (portable): volume loss in the right hemithorax. Worsening aeration of the right lung compared to prior chest x-ray. Minimal linear opacity at the left lung base. Please see full dictation for additional detail.
Chest X-Ray: Image Reviewed and Report Reviewed
--- NOTE | 2025-05-02 11:36 | W.PN.NEPH.PH ---
Today's Communication / Plan
-
Continue Lasix
Assessment/Plan
-
Assessment
JOHNNY
Hypotension
Right side lung infiltrate, effusion
Chronic pain syndrome
Sepsis
Diabetes mellitus type 2, hyperglycemia
Bilateral peroneal vein DVT
Anemia
Lung cancer status post right lower lobe wedge resection 04/15/2025, left upper lobe wedge resection 2022
History of stroke, brain aneurysm status post clipping
Lactic acidosis
Hypoalbuminemia
proteinuria
Plan:
d/w patient at length. She is still O2 dependent, but CXR seems to have improved without thoracentesis
will try to diurese more for now, she does not want to go home with supplemental O2
use lasix 80mg po daily,
Follow BMP
-
-
Date of Service: May 02, 2025
CC / HPI / ROS
-
Chief Complaint:
JOHNNY
History of Present Illness:
JOHNNY/creatinine stable 1.4
Sodium stable 135
Acidosis resolved
Potassium normal
BP stable off pressors
Review of Systems:
no cp
Shortness of breath stable
still on supplemental O2
Labs
-
Labs:
WBC 13.9 10^3/uL (4.8-10.8) H 05/02/25 04:16
RBC 3.02 10^6/uL (4.20-5.40) L 05/02/25 04:16
Hgb 8.7 g/dL (12.0-16.0) L 05/02/25 04:16
Hct 27.4 % (37.0-47.0) L 05/02/25 04:16
Plt Count 256 10^3/uL (130-400) 05/02/25 04:16
Sodium 135 mmol/L (135-145) 05/02/25 04:16
Potassium 3.5 mmol/L (3.5-5.1) 05/02/25 04:16
Chloride 104 mmol/L (98-107) 05/02/25 04:16
Carbon Dioxide 26 mmol/L (22-30) 05/02/25 04:16
BUN 31 mg/dl (7-17) H 05/02/25 04:16
Creatinine 1.5 mg/dL (0.6-1.0) H 05/02/25 04:16
eGFR 37.26 05/02/25 04:16
Glucose 147 mg/dl (70-99) H 05/02/25 04:16
Calcium 9.1 mg/dl (8.4-10.2) 05/02/25 04:16
Phosphorus 6.6 mg/dl (2.5-4.5) H 04/25/25 03:01
Auj-K-Ojtvuztvuml Pept 1410 pg/ml 04/25/25 01:06
Albumin 2.7 g/dl (3.5-5.0) L 04/28/25 11:24
Physical Exam
-
Vital Signs:
Vital Signs
Temp Pulse Resp BP Pulse Ox
98.8 F 67 18 96/75 95
05/02/25 08:28 05/02/25 11:35 05/02/25 11:35 05/02/25 10:00 05/02/25 11:35
Cardiovascular:: Regular rate and rhythm
Respiratory:: Bilateral: Coarse
Lung Excursion:: Normal
Abdomen:: Nontender and Soft
Bowel Sounds:: Normal
Extremity Edema:: +1: Bilateral:
[2025-05-02 12:14] LABS: Glucose - Point of Care 186 mg/dl (70-99)
[2025-05-02] MEDS: ZOFRAN 4 MG IV (12:30)
--- NOTE | 2025-05-02 12:40 | PTCARENOTE ---
Patient c/o of 'upset stomach that feels like nausea'. PRN zofran given per AUG.
--- NOTE | 2025-05-02 13:39 | W.PN.HOSP.TC ---
Today's Communication/Plan
-
Transfer out of IMU
Lasix per nephrology
Out of bed/PT
Monitor hemoglobin
Monitor POC
Assessment / Plan
Assessment / Plan
Physical Exam
General: Nasal O2, not in distress, able to speak in full sentences
HEENT: Normocephalic, Atraumatic
Respiratory: better air entry, no wheezes. Bruising around right chest wall, midflow noted
Cardiac: S1/S2
GI: Soft and Non Distended
Genito-urinary: No Spicer
Musculoskeletal: No Clubbing and No Edema
Skin: Warm
Neuro: AO x 3 and Nonfocal/grossly intact
Psych: calm, Intact Judgment/Insight
#Acute Hypoxic respiratory failure due to pneumonia vs Atelectasis required assisted ventilation
#Acute respiratory acidosis and metabolic acidosis
#High pulmonary artery pressure
O2 down to 1-2 liters, SaO2 around 94% - 96%
Off Bipap
-s/p thoracentesis for moderate right pleural effusion on 04/27
-Blood culture No growth
-Started on vancomycin and Zosyn for now then on Cefepime & Zithromax.
-Elevated procalcitonin
-Negative COVID & Flu . MRSA screen is negative
-History of asthma, minimal wheezing at this time, dc IV steroid ( might be causing anxiety), c/w breathing treatments.
-Appreciate pulmonary/ ID help
Anion gap metabolic lactic acidosis
HHS, blood glucose > 600, recent hx of high sugar intake, sepsis and non-compliance with antidiabetic regimen
- s/p insulin gtt for HHS not DKA
- s/p aggressive fluid resuscitation
Resolved. Currently on glargine 20 units and NovoLog 6 units AC. POC 153.
# JOHNNY on CKD IIIB
# Hyponatremia
GFR around baseline . Creatinine 1.2-1.4
Holding Losartan
Volume overload: given Lasix.
Nephrology following.
# Volume overload after IVF resuscitation while dealing with sepsis
#Acute non cardiogenic pulmonary edema
s/p Lasix Oral Lasix for now.
Close monitoring of renal function/ K level.
# Acute right and left peroneal vein DVT
s/p IV heparin gtt
Monitored PTT
Continue with Eliquis.
# S/P Wedge Resection of the Right Lower Lobe Lung Cancer & Mediastinal Lymph Node Dissection by Dr Banuelos 04/15
# Anemia of chronic disease due to underlying CKD stage IIIb
chronic anemia ( HGB around 10 in December 2024) acute on chronic anemia with
Acute blood loss anemia postsurgery and bruising of chest wall ( 10X 12 cm)
s/p 2 units of blood transfusion on 04/26. Patient signed consent.
I V iron . Hgb 8.7
#chronic pain syndrome with opioid dependency
Acute on chronic pain
reports poorly controlled with oxy , c/w long acting oral morphine
#Troponin elevation c/w non ischemic troponin elevation due to hypoxia
no known h/o CAD. No recent CP.
- trend troponin is down
- echo of heart: Normal left ventricular size and systolic function with LV ejection fraction visually estimated 60 to 65% and mild LVH.
# Sepsis POA/ Septic shock: Resolved.
- Held BP meds while low BP
- Started on stress dose steroid now tapering then off
- Resumed Coreg
History of CVA
- Continue statin and ezetimibe
DVT prophylaxis� eliquis
CODE STATUS�full code
PT recs snf
Anticipated Discharge: > 48 hours
Subjective/Interval History
-
Date of Service: May 02, 2025
remains on oxygen
states of improvement in edema
Objective Data
-
Labs:
Laboratory Results
05/02/25
04:16
WBC 13.9 H
Hgb 8.7 L
Hct 27.4 L
Plt Count 256
Sodium 135
Potassium 3.5
Chloride 104
Carbon Dioxide 26
BUN 31 H
Creatinine 1.5 H
Glucose 147 H
Calcium 9.1
Vital Signs:
Vital Signs
Temp Pulse Resp BP Pulse Ox
97.7 F 64 17 148/62 95
05/02/25 12:24 05/02/25 12:01 05/02/25 12:01 05/02/25 12:01 05/02/25 11:35
I&O
05/01/25 05/02/25 05/03/25
05:59 06:59 06:59
Intake Total 480 / 480 480 / 480
Output Total 250 / 250 750 / 750
Balance 230 / 230 -750 / -750 480 / 480
Data Reviewed
-
Total Time Spent with Patient (in minutes): 55
[2025-05-02] MEDS: FERRLECIT 110 MG IV (15:09)
--- NOTE | 2025-05-02 15:33 | PTCARENOTE ---
Patient AOx3. Forgetful at times. Bed/chair alarm on and audible. On 2L midlfow with SpO2 95%. NSR on the monitor. BP stable. Assist x1 with RW when OOB. Tolerating oral diet. Call vidal within reach, bed in lowest position, and bed of wheels locked.
[2025-05-02 17:05] LABS: Glucose - Point of Care 151 mg/dl (70-99)
--- NOTE | 2025-05-02 18:16 | CM ---
F/U: GOMEZ Eaton met with the patient/ , provided a list of SNF for them to review and Case Management to follow up on their choice. PLAN: SNF when ready.
--- NOTE | 2025-05-02 20:41 | PTCARENOTE ---
Received pt at change of shift. AAOx3; stating she feels forgetful and repeating herself when she talks with her daughter. Neurocheck completed and no concerns. States her strength in her right hand/arm has been weaker since 'getting that PICC'.
c/o of some tingling in right fingers. Was on 1L NC at 91%. Desatted to 79% on RA; slow recovery. Placed on 2 L NC; pulse ox 90%. Resting in bed with call vidal in reach.
[2025-05-02 21:25] LABS: Glucose - Point of Care 199 mg/dl (70-99)
[2025-05-02] MEDS: REMOVE LIDOCAINE PATCH 1 PATCH REMOVE (22:04)
[2025-05-03] VITALS (21 sets, daily range): BP systolic 69–137; BP diastolic 44–102; PULSE 69; O2SAT 95; BMI 37.3
[2025-05-03] MEDS: ROXICODONE PO ×2 (03:10→06:27)
[2025-05-03] MEDS: MAXIPIME 1000 MG IV ×3 (06:04→22:16)
[2025-05-03] MEDS: STERILE WATER FOR INJECTION 10 ML IV ×3 (06:04→22:16)
[2025-05-03] MEDS: PULMICORT 0.5 MG INH ×2 (07:58→19:46)
[2025-05-03] MEDS: DUONEB 3 ML INH ×3 (07:58→19:46)
[2025-05-03 08:21] LABS: Glucose - Point of Care 138 mg/dl (70-99)
[2025-05-03] MEDS: NOVOLOG FLEXPEN-MODERATE RESISTANCE SC ×2 (08:47→17:41)
[2025-05-03] MEDS: ELIQUIS 10 MG PO ×2 (08:48→20:25)
[2025-05-03] MEDS: TYLENOL 1000 MG PO ×2 (08:48→20:25)
[2025-05-03] MEDS: COREG 6.25 MG PO ×2 (08:48→20:24)
[2025-05-03] MEDS: LASIX 80 MG PO (08:48)
[2025-05-03] MEDS: MUCINEX 600 MG PO ×2 (08:48→20:24)
[2025-05-03] MEDS: CRESTOR 40 MG PO (08:49)
[2025-05-03] MEDS: LIDOCAINE 4% PATCH 1 PATCH TOPICAL (08:49)
--- NOTE | 2025-05-03 09:47 | PN.DE.MGMTRT ---
Insulin Management
- -
05/03/2025: Diabetes Management Follow up
Patient admitted with c/o increasing SOB since Friday, 04/20. 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
wedge Resection & Mediastinal Lymph Node Dissection by Dr Banuelos 04/15. On admission she was found to be saturating at 70%. Chest x-ray revealed possible right sided pneumonia. She was tried on BiPAP, developed hypotension received IV fluids with good
response. NEW finding of R & L peroneal vein DVT.
Prior to admission was taking Glimepiride 1mg daily @ and Mounjaro 5 on Sundays.
She states that she was seeing Endo Dr. Neil and had been taking Jardiance 25mg daily Metformin 1000mg BID and Glimepiride 2mg but the Jardiance and Metformin were discontinued, and the glimepiride was reduced to 1mg daily 3 weeks ago due to CKD.
A1C 8.1%, Cr 1.6, eGFR 34.48.
Pt awake, alert, oriented, resting in bed, offers no complaints, on O2 via NC, able to discuss diabetes care plan.
04/27 Patient transitioned from glycemic protocol insulin infusion to 18 units Lantus and 4 units NovoLog AC. Cr 1.5, eGFR 37.26.
05/02 premeal glucose range 129 to 151, FBG 199.
05/03 Fasting glucose 138 today. Patient ate very late breakfast AM novolog not given until 11:45 am.
Will make no change to current regimen. Cont AM Lantus to 20 units and AC NovoLog 6 units with moderate corrective.
Discussed with patient about insulin regimen and importance of staying on insulin given poor kidney function and she was in agreement.
Discussed with nurse. Will cont to follow
Diabetes History
- -
Type of Diabetes: 2 requiring insulin
Pre-Admission Diabetes Regimen
Lab Results
Hemoglobin A1c 8.1 % (4.0-5.9) H 04/25/25 06:37
Insulin Pump Settings
IP Diabetes Regimen
05/02/25 05/02/25 05/02/25
12:03 16:53 21:13
POC Glucose 186 H 151 H 199 H
05/03/25
08:10
POC Glucose 138 H
Patient Education
[2025-05-03 10:23] LABS: Blood Urea Nitrogen 33 mg/dl (7-17); Calcium 9.3 mg/dl (8.4-10.2); Carbon Dioxide 25 mmol/L (22-30); Chloride 102 mmol/L (98-107); Estimated Creatinine Clearance 37 ml/min; Glucose 154 mg/dl (70-99); Magnesium 1.8 mg/dl (1.6-2.3); Potassium 3.2 mmol/L (3.5-5.1); Sodium 132 mmol/L (135-145); eGFR 37.26
[2025-05-03] MEDS: MS CONTIN (EXTENDED RELEASE) PO (11:09)
--- NOTE | 2025-05-03 11:09 | PTCARENOTE ---
Assumed care of patient at beginning of this shift from previous RN; cannot verify accuracy of vital signs prior to 0700. Patent very drowsy this morning; arousable and able to take morning meds, but immediately went back to sleep. Oxycodone held by
previous RN. Oxygen needed to be increased to 3L n/c overnight; on initial rounds POx noted to be 94%. Patient due for MS Contin this morning; discussed with Dr Flower when he was seeing patient; med held and he will adjust order. Patient just now
starting to eat lunch; scheduled insulin to be given now that she is awake and eating. Assisted OOB to commode, then chair; c/o some initial lightheadedness that passed. Oxygen decreased to 2L n/c with POx 93% while sitting in chair.
--- NOTE | 2025-05-03 11:16 | PN.CDI ---
CDI
- -
CDI:
Physician Documentation Request
Admit Date: 04/25/25 03:14
Dear Doctor Mundo,
Please review the following and provide your response in the progress notes.
Clinical Indicators:
Nurses Notes, 04/28
Selected Entries
04/28/25
08:00
Pressure injury stage [Present on admission Sacrum] Stage 2
Physician documentation of the type and location of wounds is required for compliant documentation. Based on the above clinical findings and your assessment, please provide the following in your progress note:
Yes, Stage 2 sacrum pressure injury, POA
No, Stage 2 sacrum pressure injury
Other(Please specify)
1. Location of the ulcer/wound, including laterality.
2. Type (etiology) of ulcer/wound:
- Diabetic ulcer
- Arterial (ischemic) ulcer
- Traumatic wound
- Venous stasis ulcer
- Pressure (decubitus) ulcer
- Non-healing surgical wound
3. For a pressure ulcer, please also include the stage* of the ulcer:
- Stage 1 - Skin intact, non-blanchable redness
- Stage 2 - Partial thickness loss of dermis, includes intact or open blister
- Stage 3 - Full thickness tissue not including bone, tendon or muscle
- Stage 4 - Full thickness tissue loss, including exposed bone, tendon or muscle
- Unstageable - Full thickness loss in which the base of the ulcer is covered by slough (yellow, sahni, glass, green or brown) and/or eschar (sahni, brown or black) in the wound bed.
- Unable to determine
Use of terms such as suspected, likely, concern for, or probable (associated with a specific diagnosis that is being evaluated, monitored, or treated as if it exists) are acceptable and can be coded in the inpatient setting, when documented at the
time of discharge.
Thank you,
Ya Pena RN BSN CCDS
CDI Specialist
Please contact via tiger text
Please use your independent medical judgment in providing your response.
*Source: National Pressure Ulcer Advisory Panel (NPUAP)
--- NOTE | 2025-05-03 11:27 | W.PN.ID1 ---
Date of Service
Date of Service: May 03, 2025
Today's Communication
Complete course of abx today.
Assessment / Plan
Right-sided pneumonia
Leukocytosis
Hypoxemic respiratory failure; s/p BiPAP
Bilateral DVTs
Hyperglycemia
Lactic acidosis
Elevated troponin
Bacteriuria
Asthma
Lung cancer
Hx CVA (aneurysm)
HTN
HLD
NIDDM
Chronic back pain
Narcotic dependence
Hx nephrolithiasis
Recommendations:
Continue cefepime (d#10 of ). Patient is s/p a 5-day course of Azithromycin
Low-grade leukocytosis noted today.
Repeat blood cultures negative; 04/25 blood culture with gram-positive bacilli (contaminant)
Legionella and pneumococcal antigens negative
Continue with supportive measures.
Monitor white count and temperature curve.
Follow CXR.
����������������������������������������������������������
Chief Complaint
-: Leukocytosis and Pneumonia
Subjective / Review of Systems
Review of Systems: No Fever and No Chills
Vital Signs / Physical Exam
Vital Signs
Vital Signs
Temp Pulse Resp BP Pulse Ox
98.3 F 74 20 111/56 94
05/03/25 11:15 05/03/25 11:00 05/03/25 11:00 05/03/25 10:00 05/03/25 11:22
Physical Exam
Constitutional: No Acute Distress, Comfortable and Non-toxic
Eyes: Sclera Anicteric
Cardiovascular: Regular Rate and S1/S2; Negative S3/S4
Pulmonary: Clear, Coarse and Non Labored
Gastrointestinal: Soft, Non Distended and Normal Bowel Sounds
Genito-Urinary: Spicer
Extremities: Negative Edema or Cyanosis
Neurological: Awake and Alert
Psychological: Calm
Objective Data
Lab Data
Lab Results
05/02/25 04:16
05/03/25 09:45
PT 15.9 Sec (11.4-14.6) H 04/25/25 04:17
INR 1.24 04/25/25 04:17
APTT 75.1 Sec (23.4-35.0) H 04/29/25 07:25
Estimated Creat Clear 37 ml/min 05/03/25 09:45
Lactic Acid 1.4 mmol/L (0.7-2.0) 04/26/25 17:55
Total Bilirubin 0.4 mg/dl (0.2-1.3) 04/28/25 11:24
AST 47 U/L (14-36) H 04/28/25 11:24
ALT 40 U/L (0-35) H 04/28/25 11:24
Alkaline Phosphatase 62 U/L (38-126) 04/28/25 11:24
Most recent labs reviewed.
Micro Results:
04/25/25 03:33 Blood Culture - Final
Blood/Venous Diptheroids
Gram Stain - Final
04/25/25 03:33 Blood Culture - Final
Blood/Venous No Growth - Final Report
04/25/25 10:37 Urine Culture - Final
Urine NO GROWTH
04/25/25 10:37 Streptococcus pneumoniae Antigen (M - Final
Urine Negative for Streptococcus pneumoniae antigen.
A negative result does not exclude infection with
Streptococcus pneumoniae. Clinical correlation is
recommended.
04/25/25 10:37 Legionella Urinary Antigen - Final
Urine Negative for Legionella pneumophila Serogroup 1 antigen.
A negative result does not rule out the possiblity of
Legionella infection due to other serogroups or species of
Legionella. Clinical correlation is recommended.
04/25/25 04:17 Nasal Screen MRSA (PCR) - Final
Nose MRSA not detected - performed by PCR methodology.
04/25/25 02:20 Influenza Types A & B (JAYSHREE) - Final
Nasal Swab Negative for Influenza A & B, NAAT
Negative results must be combined with clinical observations
and patient history.
Nucleic Acid Amplification test (NAAT)performed on the
[employer] platform.
Imaging:
04/28/2025 CXR (portable): patchy bibasilar opacities suggestive of pneumonia versus subsegmental atelectasis. No significant changes compared to prior study. Small right pleural effusion is noted. Please see full dictation for additional detail.
08/27/2024 CXR (portable): volume loss in the right hemithorax. Worsening aeration of the right lung compared to prior chest x-ray. Minimal linear opacity at the left lung base. Please see full dictation for additional detail.
[2025-05-03] MEDS: DUONEB INH (11:30)
--- NOTE | 2025-05-03 11:39 | PTCARENOTE ---
Patient worked with PT; therapist reported to this nurse that BP dropped when patient stood. Sitting in chair: 90/44, standing 69/45 (stated patient c/o lightheadedness), reclined in chair 109/52. Therapist assisted patient back to bed. This nurse
sent TT to Dr Flower who ordered midodrine.
[2025-05-03] MEDS: LANTUS 0.2 UNITS SC (11:44)
[2025-05-03] MEDS: SENOKOT-S 1 TABLET PO (11:44)
[2025-05-03] MEDS: NOVOLOG FLEXPEN 6 UNITS SC ×3 (11:45→19:28)
[2025-05-03] MEDS: KCL 40 MEQ PO (11:54)
--- NOTE | 2025-05-03 12:05 | PTCARENOTE ---
Patient without a bm in several days; administered stool softener as per prn order.
[2025-05-03 12:42] LABS: Glucose - Point of Care 201 mg/dl (70-99)
--- NOTE | 2025-05-03 13:26 | W.PN.HOSP.TC ---
Today's Communication/Plan
-
repeat CXR
IS encourage
oob/pt
wean o2-may need O2 at SNF
lasix/replete K
Assessment / Plan
Assessment / Plan
Physical Exam
General: Nasal O2, not in distress, able to speak in full sentences
HEENT: Normocephalic, Atraumatic
Respiratory: better air entry, no wheezes. Bruising around right chest wall noted in presence of RN, midflow noted
Cardiac: S1/S2
GI: Soft and Non Distended
Genito-urinary: No Spicer
Musculoskeletal: No Clubbing and No Edema
Skin: Warm
Neuro: AO x 3 and Nonfocal/grossly intact
Psych: calm, Intact Judgment/Insight
#Acute Hypoxic respiratory failure due to pneumonia vs Atelectasis required assisted ventilation
#Acute respiratory acidosis and metabolic acidosis
#High pulmonary artery pressure
O2 down to 1-2 liters, SaO2 around 94% - 96%
Off Bipap
-s/p thoracentesis for moderate right pleural effusion on 04/27
-Blood culture No growth
-Started on vancomycin and Zosyn for now then on Cefepime & Zithromax.
-Elevated procalcitonin
-Negative COVID & Flu . MRSA screen is negative
-repaet CXR in am. wean down o2 as tolreated. Encourage IS.
-History of asthma, minimal wheezing at this time, dc IV steroid ( might be causing anxiety), c/w breathing treatments.
-Appreciate pulmonary/ ID help
Anion gap metabolic lactic acidosis
HHS, blood glucose > 600, recent hx of high sugar intake, sepsis and non-compliance with antidiabetic regimen
- s/p insulin gtt for HHS not DKA
- s/p aggressive fluid resuscitation
Resolved. Currently on glargine 20 units and NovoLog 6 units AC. POC 138.
# JOHNNY on CKD IIIB
# Hyponatremia
GFR around baseline . Creatinine 1.2-1.4
Holding Losartan
Volume overload: given Lasix.
Nephrology following.
# Volume overload after IVF resuscitation while dealing with sepsis
#Acute non cardiogenic pulmonary edema
s/p Lasix Oral Lasix for now.
Close monitoring of renal function/ K level.
# Acute right and left peroneal vein DVT
s/p IV heparin gtt
Monitored PTT
Continue with Eliquis.
# S/P Wedge Resection of the Right Lower Lobe Lung Cancer & Mediastinal Lymph Node Dissection by Dr Banuelos 04/15
-Bruising noted around surgical site
# Anemia of chronic disease due to underlying CKD stage IIIb
chronic anemia ( HGB around 10 in December 2024) acute on chronic anemia with
Acute blood loss anemia postsurgery and bruising of chest wall ( 10X 12 cm)
s/p 2 units of blood transfusion on 04/26. Patient signed consent.
I V iron . Hgb 8.7
#chronic pain syndrome with opioid dependency
Acute on chronic pain
c/w long acting oral morphine 15mg q12h and change oxy to prn
#Troponin elevation c/w non ischemic troponin elevation due to hypoxia
no known h/o CAD. No recent CP.
- trend troponin is down
- echo of heart: Normal left ventricular size and systolic function with LV ejection fraction visually estimated 60 to 65% and mild LVH.
# Sepsis POA/ Septic shock: Resolved.
- Held BP meds while low BP
- Started on stress dose steroid now tapering then off
- Resumed Coreg
History of CVA
- Continue statin and ezetimibe
Sacrum pressure injury stage 2 -poa
-Wound care.
DVT prophylaxis� eliquis
CODE STATUS�full code
PT recs snf
Anticipated Discharge: Within 24 hours
Subjective/Interval History
-
Date of Service: May 03, 2025
states of bruising noticed R chest wall post op
remains on oxygen
Objective Data
-
Labs:
Laboratory Results
05/03/25
09:45
Sodium 132 L
Potassium 3.2 L
Chloride 102
Carbon Dioxide 25
BUN 33 H
Creatinine 1.5 H
Glucose 154 H
Calcium 9.3
Vital Signs:
Vital Signs
Temp Pulse Resp BP Pulse Ox
98.3 F 74 20 111/56 94
05/03/25 11:15 05/03/25 11:00 05/03/25 11:00 05/03/25 10:00 05/03/25 11:22
I&O
05/02/25 05/03/25 05/04/25
06:59 06:59 06:59
Intake Total 1070 / 1070
Output Total 750 / 750
Balance -750 / -750 1070 / 1070
--- NOTE | 2025-05-03 13:59 | CM ---
Lung cancer, PNA Cefepime IV, WBC 13.9, Hgb 8.7 on 05/02/25. Discharge POC: SNF. [employer] list provided yesterday. Spoke with patient today and she has not chosen any preferences. She does not know facilities. She is amenable to going to
SNF. This CM called and left message for for preferences.
[2025-05-03] MEDS: NOVOLOG FLEXPEN-MODERATE RESISTANCE 300 UNITS SC (14:08)
--- NOTE | 2025-05-03 14:48 | W.PN.NEPH.PH ---
Today's Communication / Plan
-
Continue p.o. Lasix/
Assessment/Plan
-
Assessment
JOHNNY
Hypotension
Right side lung infiltrate, effusion
Chronic pain syndrome
Sepsis
Diabetes mellitus type 2, hyperglycemia
Bilateral peroneal vein DVT
Anemia
Lung cancer status post right lower lobe wedge resection 04/15/2025, left upper lobe wedge resection 2022
History of stroke, brain aneurysm status post clipping
Lactic acidosis
Hypoalbuminemia
proteinuria
Plan:
use lasix 80mg po daily,
Follow BMP
Remains on oxygen though does not clinically appear volume overloaded.
Discussed with hospital medicine will repeat chest x-ray
-
-
Date of Service: May 03, 2025
CC / HPI / ROS
-
Chief Complaint:
JOHNNY
History of Present Illness:
JOHNNY/creatinine stable 1.4
Sodium stable 135
Acidosis resolved
Potassium normal
BP stable off pressors
Review of Systems:
no cp
Shortness of breath stable
still on supplemental O2
Labs
-
Labs:
WBC 13.9 10^3/uL (4.8-10.8) H 05/02/25 04:16
RBC 3.02 10^6/uL (4.20-5.40) L 05/02/25 04:16
Hgb 8.7 g/dL (12.0-16.0) L 05/02/25 04:16
Hct 27.4 % (37.0-47.0) L 05/02/25 04:16
Plt Count 256 10^3/uL (130-400) 05/02/25 04:16
Sodium 132 mmol/L (135-145) L 05/03/25 09:45
Potassium 3.2 mmol/L (3.5-5.1) L 05/03/25 09:45
Chloride 102 mmol/L (98-107) 05/03/25 09:45
Carbon Dioxide 25 mmol/L (22-30) 05/03/25 09:45
BUN 33 mg/dl (7-17) H 05/03/25 09:45
Creatinine 1.5 mg/dL (0.6-1.0) H 05/03/25 09:45
eGFR 37.26 05/03/25 09:45
Glucose 154 mg/dl (70-99) H 05/03/25 09:45
Calcium 9.3 mg/dl (8.4-10.2) 05/03/25 09:45
Phosphorus 6.6 mg/dl (2.5-4.5) H 04/25/25 03:01
Pfo-F-Spdnlfsqrqb Pept 1410 pg/ml 04/25/25 01:06
Albumin 2.7 g/dl (3.5-5.0) L 04/28/25 11:24
Physical Exam
-
Vital Signs:
Vital Signs
Temp Pulse Resp BP Pulse Ox
98.3 F 74 20 111/56 94
05/03/25 11:15 05/03/25 11:00 05/03/25 11:00 05/03/25 10:00 05/03/25 11:22
Cardiovascular:: Regular rate and rhythm
Respiratory:: Bilateral: Coarse
Lung Excursion:: Normal
Abdomen:: Nontender and Soft
Bowel Sounds:: Normal
Extremity Edema:: +1: Bilateral:
[2025-05-03] MEDS: FERRLECIT 110 MG IV (15:19)
--- NOTE | 2025-05-03 15:49 | PTCARENOTE ---
Patient tolerating OOB in chair and going to commode; no dizziness. BP 116/45.
[2025-05-03 17:47] LABS: Glucose - Point of Care 133 mg/dl (70-99)
[2025-05-03] MEDS: MS CONTIN (EXTENDED RELEASE) 15 MG PO (20:24)
[2025-05-03] MEDS: REMOVE LIDOCAINE PATCH 1 PATCH REMOVE (20:27)
[2025-05-03 21:40] LABS: Glucose - Point of Care 157 mg/dl (70-99)
[2025-05-04] VITALS (13 sets, daily range): BP systolic 99–149; BP diastolic 50–70; PULSE 64–86; O2SAT 91–96; BMI 36.8
[2025-05-04] MEDS: TYLENOL 650 MG PO ×2 (02:39→15:45)
[2025-05-04 06:02] LABS: Blood Urea Nitrogen 35 mg/dl (7-17); Calcium 9.4 mg/dl (8.4-10.2); Carbon Dioxide 28 mmol/L (22-30); Chloride 103 mmol/L (98-107); Estimated Creatinine Clearance 39 ml/min; Glucose 120 mg/dl (70-99); Potassium 3.4 mmol/L (3.5-5.1); Sodium 133 mmol/L (135-145); eGFR 40.47
[2025-05-04] MEDS: DUONEB 3 ML INH ×4 (07:22→19:56)
[2025-05-04] MEDS: PULMICORT 0.5 MG INH ×2 (07:22→19:56)
--- NOTE | 2025-05-04 07:44 | PN.DE.MGMTRT ---
Insulin Management
- -
05/04/2025: Diabetes Management Follow up
Patient admitted with c/o increasing SOB since Friday, 04/20. 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
Resection & Mediastinal Lymph Node Dissection by Dr Banuelos 04/15. On admission she was found to be saturating at 70%. Chest x-ray revealed possible right sided pneumonia. She was tried on BiPAP, developed hypotension received IV fluids with good
response. NEW finding of R & L peroneal vein DVT.
Prior to admission was taking Glimepiride 1mg daily @ and Mounjaro 5 on Sundays.
She states that she was seeing Endo Dr. Neil and had been taking Jardiance 25mg daily Metformin 1000mg BID and Glimepiride 2mg but the Jardiance and Metformin were discontinued, and the glimepiride was reduced to 1mg daily 3 weeks ago due to CKD.
A1C 8.1%, Cr 1.6, eGFR 34.48.
Pt awake, alert, oriented, resting in bed, offers no complaints, on O2 via NC, able to discuss diabetes care plan.
04/27 Patient transitioned from glycemic protocol insulin infusion to 18 units Lantus and 4 units NovoLog AC. Cr 1.5, eGFR 37.26.
05/03 Fasting glucose 138 today. Patient ate very late breakfast AM novolog not given until 11:45 am. Glucose range 133 to 201.
05/04 Fasting glucose 120 today.
Will make no change to current regimen. Cont AM Lantus to 20 units and AC NovoLog 6 units with moderate corrective.
Discussed with patient about insulin regimen and importance of staying on insulin given poor kidney function and she was in agreement.
Discussed with nurse. Will cont to follow
Diabetes History
- -
Type of Diabetes: 2 requiring insulin
Pre-Admission Diabetes Regimen
05/03/25 05/04/25
09:45 05:24
Creatinine 1.5 H 1.4 H
Lab Results
Hemoglobin A1c 8.1 % (4.0-5.9) H 04/25/25 06:37
Insulin Pump Settings
IP Diabetes Regimen
05/03/25 05/03/25 05/03/25
08:10 09:45 12:30
Glucose 154 H
POC Glucose 138 H 201 H
05/03/25 05/03/25 05/04/25
17:35 21:28 05:24
Glucose 120 H
POC Glucose 133 H 157 H
Patient Education
[2025-05-04 08:03] LABS: Glucose - Point of Care 126 mg/dl (70-99)
[2025-05-04] MEDS: ZOFRAN 4 MG IV ×2 (08:33→15:45)
[2025-05-04] MEDS: MS CONTIN (EXTENDED RELEASE) 15 MG PO ×2 (08:50→20:09)
[2025-05-04] MEDS: LASIX 80 MG PO (08:50)
[2025-05-04] MEDS: MUCINEX 600 MG PO ×2 (08:50→20:09)
[2025-05-04] MEDS: TYLENOL 1000 MG PO ×2 (08:50→20:10)
[2025-05-04] MEDS: CRESTOR 40 MG PO (08:50)
[2025-05-04] MEDS: ELIQUIS 10 MG PO ×2 (08:50→21:21)
[2025-05-04] MEDS: LIDOCAINE 4% PATCH 1 PATCH TOPICAL (08:51)
[2025-05-04] MEDS: COREG 6.25 MG PO ×2 (08:51→20:40)
[2025-05-04] MEDS: NOVOLOG FLEXPEN-MODERATE RESISTANCE SC (08:53)
[2025-05-04] MEDS: KCL 40 MEQ PO (09:12)
[2025-05-04] MEDS: NOVOLOG FLEXPEN 6 UNITS SC ×3 (09:45→18:14)
[2025-05-04] MEDS: LANTUS 0.2 UNITS SC (09:45)
--- NOTE | 2025-05-04 10:57 | PTCARENOTE ---
Ox3, c/o pain right thorax 09/06 chronic back pain 12/07- am scheduled meds given also insulin with breakfast. Steri strips to right thorax, sutures under right breast cdi. right breast area is bruised black with faded maroon. Remains on 2L NC
97%- however [facility] PO[facility] 93%. BP 117/80. Pt c/o constipation, PRN to be given after xray, and transfer to 1143. Report to Anabelle.
[2025-05-04] MEDS: SENOKOT-S 1 TABLET PO (11:53)
[2025-05-04] MEDS: ROXICODONE 20 MG PO ×3 (11:54→23:22)
[2025-05-04 12:36] LABS: Glucose - Point of Care 247 mg/dl (70-99)
--- NOTE | 2025-05-04 12:38 | W.PN.ID1 ---
Date of Service
Date of Service: May 04, 2025
Today's Communication
Observe off antibiotics.
Assessment / Plan
Right-sided pneumonia
Leukocytosis
Hypoxemic respiratory failure; s/p BiPAP
Bilateral DVTs
Hyperglycemia
Lactic acidosis
Elevated troponin
Bacteriuria
Asthma
Lung cancer
Hx CVA (aneurysm)
HTN
HLD
NIDDM
Chronic back pain
Narcotic dependence
Hx nephrolithiasis
Recommendations:
Low-grade leukocytosis noted yesterday. No fevers or other signs/symptoms of infection.
Repeat blood cultures negative; 04/25 blood culture with gram-positive bacilli (contaminant)
Legionella and pneumococcal antigens negative
Patient is s/p a 5-day course of Azithromycin and 10-day course of cefepime.
Observe off antibiotics.
Continue with supportive measures.
Monitor white count and temperature curve.
Repeat CXR in 4 to 6 weeks.
����������������������������������������������������������
Chief Complaint
-: Leukocytosis and Pneumonia
Subjective / Review of Systems
Review of Systems: No Fever, No Chills, Cough, No Sputum Production, No Chest Pain and No Abdominal Pain
Vital Signs / Physical Exam
Vital Signs
Vital Signs
Temp Pulse Resp BP Pulse Ox
98.2 F 90 14 114/57 96
05/04/25 03:00 05/04/25 11:41 05/04/25 11:41 05/04/25 10:52 05/04/25 11:41
Physical Exam
Constitutional: No Acute Distress, Comfortable and Non-toxic
Eyes: Sclera Anicteric
Cardiovascular: Regular Rate and S1/S2; Negative S3/S4
Pulmonary: Clear, Coarse and Non Labored
Gastrointestinal: Soft, Non Distended and Normal Bowel Sounds
Extremities: Edema and Cyanosis
Skin: Warm and Dry
Neurological: Awake and Alert
Psychological: Calm
Objective Data
Lab Data
Lab Results
05/02/25 04:16
05/04/25 05:24
PT 15.9 Sec (11.4-14.6) H 04/25/25 04:17
INR 1.24 04/25/25 04:17
APTT 75.1 Sec (23.4-35.0) H 04/29/25 07:25
Estimated Creat Clear 39 ml/min 05/04/25 05:24
Lactic Acid 1.4 mmol/L (0.7-2.0) 04/26/25 17:55
Total Bilirubin 0.4 mg/dl (0.2-1.3) 04/28/25 11:24
AST 47 U/L (14-36) H 04/28/25 11:24
ALT 40 U/L (0-35) H 04/28/25 11:24
Alkaline Phosphatase 62 U/L (38-126) 04/28/25 11:24
Most recent labs reviewed.
Micro Results:
04/25/25 03:33 Blood Culture - Final
Blood/Venous Diptheroids
Gram Stain - Final
04/25/25 03:33 Blood Culture - Final
Blood/Venous No Growth - Final Report
04/25/25 10:37 Urine Culture - Final
Urine NO GROWTH
04/25/25 10:37 Streptococcus pneumoniae Antigen (M - Final
Urine Negative for Streptococcus pneumoniae antigen.
A negative result does not exclude infection with
Streptococcus pneumoniae. Clinical correlation is
recommended.
04/25/25 10:37 Legionella Urinary Antigen - Final
Urine Negative for Legionella pneumophila Serogroup 1 antigen.
A negative result does not rule out the possiblity of
Legionella infection due to other serogroups or species of
Legionella. Clinical correlation is recommended.
04/25/25 04:17 Nasal Screen MRSA (PCR) - Final
Nose MRSA not detected - performed by PCR methodology.
04/25/25 02:20 Influenza Types A & B (JAYSHREE) - Final
Nasal Swab Negative for Influenza A & B, NAAT
Negative results must be combined with clinical observations
and patient history.
Nucleic Acid Amplification test (NAAT)performed on the
[employer] platform.
Imaging:
04/28/2025 CXR (portable): patchy bibasilar opacities suggestive of pneumonia versus subsegmental atelectasis. No significant changes compared to prior study. Small right pleural effusion is noted. Please see full dictation for additional detail.
08/27/2024 CXR (portable): volume loss in the right hemithorax. Worsening aeration of the right lung compared to prior chest x-ray. Minimal linear opacity at the left lung base. Please see full dictation for additional detail.
--- NOTE | 2025-05-04 12:59 | W.PN.HOSP.TC ---
Today's Communication/Plan
-
Orthostatic vital sign
Encourage incentive spirometry
Replete potassium
Repeat Bnp
Wean O2 as tolerated
Case management for rehab placement. Start dispo effort.
Assessment / Plan
Assessment / Plan
Physical Exam
General: Nasal O2, not in distress, able to speak in full sentences, conversant
HEENT: Normocephalic, Atraumatic
Respiratory: better air entry, no wheezes. Bruising around right chest wall noted in presence of RN, midflow noted
Cardiac: S1/S2
GI: Soft and Non Distended
Genito-urinary: No Spicer
Musculoskeletal: No Clubbing and No Edema
Skin: Warm
Neuro: AO x 3 and Nonfocal/grossly intact
Psych: calm, Intact Judgment/Insight
#Acute Hypoxic respiratory failure due to pneumonia vs Atelectasis required assisted ventilation
#Acute respiratory acidosis and metabolic acidosis
#High pulmonary artery pressure
O2 down to 1-2 liters, SaO2 around 94% - 96%
Off Bipap
-s/p thoracentesis for moderate right pleural effusion on 04/27
-Blood culture No growth
-Started on vancomycin and Zosyn for now then on Cefepime & Zithromax. Patient completed 10-day course of treatment with cefepime and 5d course of zithromax
-Elevated procalcitonin
-Negative COVID & Flu . MRSA screen is negative
-Chest x-ray noted from this morning. Wean down o2 as tolreated. Encourage IS.
-History of asthma, minimal wheezing at this time, dc IV steroid ( might be causing anxiety), c/w breathing treatments.
-Appreciate pulmonary/ ID help
Anion gap metabolic lactic acidosis
HHS, blood glucose > 600, recent hx of high sugar intake, sepsis and non-compliance with antidiabetic regimen
- s/p insulin gtt for HHS not DKA
- s/p aggressive fluid resuscitation
Resolved. Currently on glargine 20 units and NovoLog 6 units AC. POC 126.
# JOHNNY on CKD IIIB
# Hyponatremia
GFR around baseline . Creatinine 1.2-1.4
Holding Losartan probably discontinued at discharge as per episode of hypotension at times.
Volume overload: given Lasix.
Nephrology following.
# Volume overload after IVF resuscitation while dealing with sepsis
#Acute non cardiogenic pulmonary edema
s/p Lasix Oral Lasix for now.
Close monitoring of renal function/ K level.
# Acute right and left peroneal vein DVT
s/p IV heparin gtt
Monitored PTT
Continue with Eliquis.
# Episode of hypotension
DC losartan
Currently on carvedilol and Lasix
May to consider decreasing dose if needed
Orthostatic vital signs
# S/P Wedge Resection of the Right Lower Lobe Lung Cancer & Mediastinal Lymph Node Dissection by Dr Banuelos 04/15
-Bruising noted around surgical site
# Anemia of chronic disease due to underlying CKD stage IIIb
chronic anemia ( HGB around 10 in December 2024) acute on chronic anemia with
Acute blood loss anemia postsurgery and bruising of chest wall ( 10X 12 cm)
s/p 2 units of blood transfusion on 04/26. Patient signed consent.
I V iron . Hgb 8.7
#chronic pain syndrome with opioid dependency
Acute on chronic pain
c/w long acting oral morphine 15mg q12h and change oxy to prn
#Troponin elevation c/w non ischemic troponin elevation due to hypoxia
no known h/o CAD. No recent CP.
- trend troponin is down
- echo of heart: Normal left ventricular size and systolic function with LV ejection fraction visually estimated 60 to 65% and mild LVH.
# Sepsis POA/ Septic shock: Resolved.
- Held BP meds while low BP
- Started on stress dose steroid now tapering then off
- Resumed Coreg
History of CVA
- Continue statin and ezetimibe
Sacrum pressure injury stage 2 -poa
-Wound care.
DVT prophylaxis� eliquis
CODE STATUS�full code
PT recs snf. CM aware. start dispo.
Anticipated Discharge: Within 24 hours
Subjective/Interval History
-
Date of Service: May 04, 2025
tx to 1 acute
remains on 2L oxygen
comfortable in bed
yesterday felt dizzy upon standing up walking to bathroom
currently bp stable
Objective Data
-
Labs:
Laboratory Results
05/04/25
05:24
Sodium 133 L
Potassium 3.4 L
Chloride 103
Carbon Dioxide 28
BUN 35 H
Creatinine 1.4 H
Glucose 120 H
Calcium 9.4
Vital Signs:
Vital Signs
Temp Pulse Resp BP Pulse Ox
98.2 F 90 14 114/57 96
05/04/25 03:00 05/04/25 11:41 05/04/25 11:41 05/04/25 10:52 05/04/25 11:41
I&O
05/03/25 05/04/25 05/05/25
06:59 06:59 06:59
Intake Total 1070 / 1070
Balance 1070 / 1070
Data Reviewed
-
Total Time Spent with Patient (in minutes): 55
[2025-05-04] MEDS: NOVOLOG FLEXPEN-MODERATE RESISTANCE 3 UNITS SC (13:15)
--- NOTE | 2025-05-04 13:17 | W.PN.NEPH.PH ---
Today's Communication / Plan
-
pBNP
Assessment/Plan
-
Assessment
JOHNNY
Hypotension
Right side lung infiltrate, effusion
Chronic pain syndrome
Sepsis
Diabetes mellitus type 2, hyperglycemia
Bilateral peroneal vein DVT
Anemia
Lung cancer status post right lower lobe wedge resection 04/15/2025, left upper lobe wedge resection 2022
History of stroke, brain aneurysm status post clipping
Lactic acidosis
Hypoalbuminemia
proteinuria
Plan:
use lasix 80mg po daily,
Follow BMP
Remains on oxygen though does not clinically appear volume overloaded.
check pBNP. may need to consider RHC
-
-
Date of Service: May 04, 2025
CC / HPI / ROS
-
Chief Complaint:
JOHNNY
History of Present Illness:
JOHNNY/creatinine stable 1.4
Sodium stable
K low 3.4
Acidosis resolved
BP stable off pressors
Review of Systems:
no cp
Shortness of breath stable
still on supplemental O2
Labs
-
Labs:
WBC 13.9 10^3/uL (4.8-10.8) H 05/02/25 04:16
RBC 3.02 10^6/uL (4.20-5.40) L 05/02/25 04:16
Hgb 8.7 g/dL (12.0-16.0) L 05/02/25 04:16
Hct 27.4 % (37.0-47.0) L 05/02/25 04:16
Plt Count 256 10^3/uL (130-400) 05/02/25 04:16
Sodium 133 mmol/L (135-145) L 05/04/25 05:24
Potassium 3.4 mmol/L (3.5-5.1) L 05/04/25 05:24
Chloride 103 mmol/L (98-107) 05/04/25 05:24
Carbon Dioxide 28 mmol/L (22-30) 05/04/25 05:24
BUN 35 mg/dl (7-17) H 05/04/25 05:24
Creatinine 1.4 mg/dL (0.6-1.0) H 05/04/25 05:24
eGFR 40.47 05/04/25 05:24
Glucose 120 mg/dl (70-99) H 05/04/25 05:24
Calcium 9.4 mg/dl (8.4-10.2) 05/04/25 05:24
Phosphorus 6.6 mg/dl (2.5-4.5) H 04/25/25 03:01
Albumin 2.7 g/dl (3.5-5.0) L 04/28/25 11:24
Physical Exam
-
Vital Signs:
Vital Signs
Temp Pulse Resp BP Pulse Ox
98.2 F 90 14 114/57 96
05/04/25 03:00 05/04/25 11:41 05/04/25 11:41 05/04/25 10:52 05/04/25 11:41
Cardiovascular:: Regular rate and rhythm
Respiratory:: Bilateral: Coarse
Lung Excursion:: Normal
Abdomen:: Nontender and Soft
Bowel Sounds:: Normal
Extremity Edema:: None: Bilateral:
--- NOTE | 2025-05-04 15:20 | CM ---
Discharge POC: SNF. Referrals placed. [facility] accepted. [facility] requests call on day of discharge for bed availability. [facility] is preference.
--- NOTE | 2025-05-04 16:15 | CM ---
[facility] accepted patient
SNF auth started with [facility] pending auth number [id number]
Call with new PT note
made aware
[2025-05-04 17:50] LABS: Glucose - Point of Care 159 mg/dl (70-99)
[2025-05-04] MEDS: NOVOLOG FLEXPEN-MODERATE RESISTANCE 1 UNITS SC (18:14)
[2025-05-04] MEDS: REMOVE LIDOCAINE PATCH 1 PATCH REMOVE (20:10)
--- NOTE | 2025-05-04 20:17 | W.PN.UPDATE ---
Update Note
Progress Note Update
RN reports increase in bruise, pain and hardened area under the right breast s/p Right LL Lobectomy 04/15. States she is been having increase in pain and hardening under breast for 3 days and did not mention to anyone, she also reports increase in
work of breathing.
Large ecchymotic area noted right breast radiating towards mid chest, part of lower abdomen and towards lateral back, Hard indurated skin noted under right breast. no discharge noted. scooteri elizabeth CDI, On Eliquis
stable VS
Stat CBC
Stat CT chest scan now r/o hematoma
H&H stable.
CT chest resulted
Consulted with Dr. Banuelos as patient prefer and is known to Dr. Banuelos. Advise of possible IVC filter.
consulted with IR, no interventions at present. Will see patient tomorrow for any interventions.
will hold Eliquis.
[2025-05-04 20:35] LABS: Hematocrit 30.3 % (37.0-47.0); Hemoglobin 9.6 g/dL (12.0-16.0); Mean Corp Hgb Conc. 31.7 g/dL (33.0-37.0); Mean Corpuscular Volume 93.5 fL (81.0-99.0); Platelet Count 277 10^3/uL (130-400); Red Cell Dist. Width 17.5 % (11.5-14.5)
--- NOTE | 2025-05-04 20:55 | PTCARENOTE ---
pt off floor for STAT CR chest
--- NOTE | 2025-05-04 23:00 | PTCARENOTE ---
Dark Purple/Black w/ areas Maroon ecchymosis at Rt mid cervical-lateral breast to Rt below breast- RUQ abdomen wrapping around to lateral mid back measuring 26.5x58cm and outlined. Lateral breast indurated. Steri strip c/d/i. Patient does not c/o
new pain.
[2025-05-04 23:14] LABS: Glucose - Point of Care 178 mg/dl (70-99)
[2025-05-05] VITALS (9 sets, daily range): BP systolic 100–147; BP diastolic 50–71; PULSE 65–87; O2SAT 93–94; BMI 36.9
--- NOTE | 2025-05-05 00:05 | PTCARENOTE ---
Pt placed on continous pox 99% 2LNC.
--- NOTE | 2025-05-05 00:21 | PTCARENOTE ---
05/04 During walking rounds, this RN and dayshift nurses assessed patient surgical area. Assessed was Dark Purple/Black w/ areas Maroon ecchymosis at Rt mid cervical->lateral and underneath breast to RUQ abdomen wrapping around to lateral mid back.
Patient does not c/o new pain. Patient more concerned when sutures were to be removed. At 1940, House FERRYBOAT DECKHAND made aware and came to floor to assess patient. Orders placed for a CBC (blood work last drawn on 05/02) and a STAT CT Chest. Per FERRYBOAT DECKHAND, ok to
administer Eliquis 10mg.
--- NOTE | 2025-05-05 00:23 | PTCARENOTE ---
At 2308, CT Chest report read. This RN reached out to VENEER MEASURER. Per VENEER MEASURER, patient will be evaluated 05/05 as there is 'Nothing to be done now they said'. This RN reached out to Dr. Gastelum regarding if this is an emergent situation for a tube placement. Per
, 'It might be emergent depending upon the patient's clinical condition.' This RN stated that patient is stable.
Patient does not c/o NEW pain. Pt does not c/o SOB or chest pain. Breathes sounds diminished throughout. POX 94% 2LNC. NSR on monitor, HR regular. Patient ambulated with assistance to bathroom. Urinated w/o issues.
[2025-05-05] MEDS: ROXICODONE 20 MG PO ×3 (05:46→17:59)
[2025-05-05 07:28] LABS: Hematocrit 29.2 % (37.0-47.0); Hemoglobin 9.1 g/dL (12.0-16.0); Mean Corp Hgb Conc. 31.2 g/dL (33.0-37.0); Mean Corpuscular Volume 92.4 fL (81.0-99.0); Platelet Count 279 10^3/uL (130-400); Red Cell Dist. Width 18.1 % (11.5-14.5)
[2025-05-05 07:36] LABS: Glucose - Point of Care 147 mg/dl (70-99)
[2025-05-05 07:52] LABS: Blood Urea Nitrogen 32 mg/dl (7-17); Calcium 9.3 mg/dl (8.4-10.2); Carbon Dioxide 26 mmol/L (22-30); Chloride 103 mmol/L (98-107); Estimated Creatinine Clearance 39 ml/min; Glucose 135 mg/dl (70-99); Potassium 3.5 mmol/L (3.5-5.1); Sodium 134 mmol/L (135-145); eGFR 40.47
[2025-05-05] MEDS: PULMICORT 0.5 MG INH ×2 (07:53→19:36)
[2025-05-05] MEDS: DUONEB 3 ML INH ×4 (07:53→19:36)
[2025-05-05] MEDS: MS CONTIN (EXTENDED RELEASE) 15 MG PO (09:18)
[2025-05-05] MEDS: TYLENOL 1000 MG PO ×2 (09:18→19:45)
[2025-05-05] MEDS: LASIX 80 MG PO (09:18)
[2025-05-05] MEDS: SENOKOT-S 1 TABLET PO (09:18)
[2025-05-05] MEDS: MUCINEX 600 MG PO ×2 (09:18→19:45)
[2025-05-05] MEDS: CRESTOR 40 MG PO (09:18)
[2025-05-05] MEDS: NOVOLOG FLEXPEN-MODERATE RESISTANCE SC (09:19)
[2025-05-05] MEDS: LANTUS 0.2 UNITS SC (09:19)
[2025-05-05] MEDS: COREG 6.25 MG PO ×2 (09:19→19:46)
[2025-05-05] MEDS: LIDOCAINE 4% PATCH 1 PATCH TOPICAL (09:19)
[2025-05-05] MEDS: NOVOLOG FLEXPEN 6 UNITS SC ×3 (09:20→17:59)
--- NOTE | 2025-05-05 09:59 | W.PN.NEPH.PH ---
Today's Communication / Plan
-
follow BMP
Assessment/Plan
-
Assessment
JOHNNY
Hypotension
Right side lung infiltrate, effusion
Chronic pain syndrome
Sepsis
Diabetes mellitus type 2, hyperglycemia
Bilateral peroneal vein DVT
Anemia
Lung cancer status post right lower lobe wedge resection 04/15/2025, left upper lobe wedge resection 2022
History of stroke, brain aneurysm status post clipping
Lactic acidosis
Hypoalbuminemia
proteinuria
Plan:
continue lasix 80mg po daily,
Follow BMP
pulmonary/IR eval for hemothorax
eliquis on hold
-
-
Date of Service: May 05, 2025
CC / HPI / ROS
-
Chief Complaint:
JOHNNY
History of Present Illness:
JOHNNY/creatinine stable 1.4
Sodium up to 134
hgb stable 9.1
Acidosis resolved
BP stable off pressors
still on supplemental O2
CT chest 05/04 x IV with acute right hemothorax
Review of Systems:
no cp
Shortness of breath stable
still on supplemental O2
Labs
-
Labs:
WBC 12.6 10^3/uL (4.8-10.8) H 05/05/25 06:53
RBC 3.16 10^6/uL (4.20-5.40) L 05/05/25 06:53
Hgb 9.1 g/dL (12.0-16.0) L 05/05/25 06:53
Hct 29.2 % (37.0-47.0) L 05/05/25 06:53
Plt Count 279 10^3/uL (130-400) 05/05/25 06:53
Sodium 134 mmol/L (135-145) L 05/05/25 06:53
Potassium 3.5 mmol/L (3.5-5.1) 05/05/25 06:53
Chloride 103 mmol/L (98-107) 05/05/25 06:53
Carbon Dioxide 26 mmol/L (22-30) 05/05/25 06:53
BUN 32 mg/dl (7-17) H 05/05/25 06:53
Creatinine 1.4 mg/dL (0.6-1.0) H 05/05/25 06:53
eGFR 40.47 05/05/25 06:53
Glucose 135 mg/dl (70-99) H 05/05/25 06:53
Calcium 9.3 mg/dl (8.4-10.2) 05/05/25 06:53
Phosphorus 6.6 mg/dl (2.5-4.5) H 04/25/25 03:01
Lug-Q-Xldyhmhexjo Pept 653 pg/ml 05/04/25 05:24
Albumin 2.7 g/dl (3.5-5.0) L 04/28/25 11:24
Physical Exam
-
Vital Signs:
Vital Signs
Temp Pulse Resp BP Pulse Ox
98.3 F 68 14 130/69 97
05/05/25 07:25 05/05/25 07:55 05/05/25 07:55 05/05/25 07:25 05/05/25 07:55
Cardiovascular:: Regular rate and rhythm
Respiratory:: Bilateral: Coarse
Lung Excursion:: Normal
Abdomen:: Nontender and Soft
Bowel Sounds:: Normal
Extremity Edema:: None: Bilateral:
--- NOTE | 2025-05-05 10:23 | PN.DE.MGMTRT ---
Insulin Management
- -
05/05/2025: Diabetes Management Follow up
Patient admitted with c/o increasing SOB since Friday, 04/20. 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
Resection & Mediastinal Lymph Node Dissection by Dr Banuelos 04/15. On admission she was found to be saturating at 70%. Chest x-ray revealed possible right sided pneumonia. She was tried on BiPAP, developed hypotension received IV fluids with good
response. NEW finding of R & L peroneal vein DVT.
Prior to admission was taking Glimepiride 1mg daily @ and Mounjaro 5 on Sundays.
She states that she was seeing Endo Dr. Neil and had been taking Jardiance 25mg daily Metformin 1000mg BID and Glimepiride 2mg but the Jardiance and Metformin were discontinued, and the glimepiride was reduced to 1mg daily 3 weeks ago due to CKD.
A1C 8.1%, Cr 1.6, eGFR 34.48.
Pt awake, alert, oriented, resting in bed, offers no complaints, on O2 via NC, able to discuss diabetes care plan.
05/04 Fasting glucose 120 today. Will make no change to current regimen. Cont AM Lantus to 20 units and AC NovoLog 6 units with moderate corrective.
05/05 Glucose range yesterday 120 to 178. Fasting glucose today 135. Will continue current regimen lantus 20 units in AM with novolog 6 units AC and moderate corrective.
Discussed with patient about insulin regimen and importance of staying on insulin given poor kidney function and she was in agreement. For SNF.
Discussed with nurse. Will cont to follow
Diabetes History
- -
Type of Diabetes: 2 requiring insulin
Pre-Admission Diabetes Regimen
05/05/25
06:53
Creatinine 1.4 H
Lab Results
Hemoglobin A1c 8.1 % (4.0-5.9) H 04/25/25 06:37
Insulin Pump Settings
IP Diabetes Regimen
05/04/25 05/04/25 05/04/25
12:24 17:30 23:00
Glucose
POC Glucose 247 H 159 H 178 H
05/05/25 05/05/25
06:53 07:25
Glucose 135 H
POC Glucose 147 H
Meal type: Breakfast
Amount consumed: 90%
Patient Education
--- NOTE | 2025-05-05 10:42 | W.PN.HOSP.TC ---
Addendum entered and electronically signed by Shamir Flower MD 05/05/25 13:44:
Patient with pain from hemothorax. Will increase MS Contin to home dose 30 mg every 12H.
Addendum entered and electronically signed by Shamir Flower MD 05/05/25 11:47:
Discussed patient CT chest results with Dr. Banuelos. He said he reviewed patient CAT scan results from overnight. He thinks patient is not actively bleeding and that this is prior blood pushing out currently. Based on patient hemoglobin Dr. Banuelos say
he feels comfortable putting patient back on Eliquis for her DVT and monitor.
Original Note:
Today's Communication/Plan
-
Continue with p.o. Lasix
Trend hemoglobin
Await further heme/iRad input
Pain control
Bowel regimen
Assessment / Plan
Assessment / Plan
Physical Exam
General: Nasal O2, not in distress, able to speak in full sentences, conversant
HEENT: Normocephalic, Atraumatic
Respiratory: better air entry, no wheezes. Bruising around right chest wall noted in presence of RN, midflow noted
Cardiac: S1/S2
GI: Soft and Non Distended
Genito-urinary: No Spicer
Musculoskeletal: No Clubbing and No Edema
Skin: Warm
Neuro: AO x 3 and Nonfocal/grossly intact
Psych: calm, Intact Judgment/Insight
# Right hemothorax
# S/P Wedge Resection of the Right Lower Lobe Lung Cancer & Mediastinal Lymph Node Dissection by Dr Banuelos 04/15
Eliquis has been held which was started for recent DVT
Hematology/RN consultation for possible IVC filter
Pulm to reevaluate as patient complaining of mild shortness of breath
Surgeon was informed of the above finding
#Acute Hypoxic respiratory failure due to pneumonia vs Atelectasis required assisted ventilation
#Acute respiratory acidosis and metabolic acidosis
#High pulmonary artery pressure
O2 down to 1-2 liters, SaO2 around 94% - 96%
Off Bipap
-s/p thoracentesis for moderate right pleural effusion on 04/27
-Blood culture No growth
-Started on vancomycin and Zosyn for now then on Cefepime & Zithromax. Patient completed 10-day course of treatment with cefepime and 5d course of zithromax
-Elevated procalcitonin
-Negative COVID & Flu . MRSA screen is negative
-Wean down o2 as tolreated. Encourage IS.
-History of asthma, minimal wheezing at this time, dc IV steroid ( might be causing anxiety), c/w breathing treatments.
-Appreciate pulmonary/ ID help
Anion gap metabolic lactic acidosis
HHS, blood glucose > 600, recent hx of high sugar intake, sepsis and non-compliance with antidiabetic regimen
- s/p insulin gtt for HHS not DKA
- s/p aggressive fluid resuscitation
Resolved. Currently on glargine 20 units and NovoLog 6 units AC. POC 147.
# JOHNNY on CKD IIIB
# Hyponatremia
GFR around baseline . Creatinine 1.2-1.4
Holding Losartan probably discontinued at discharge as per episode of hypotension at times.
Volume overload: given Lasix.
Nephrology following.
# Volume overload after IVF resuscitation while dealing with sepsis
#Acute non cardiogenic pulmonary edema
s/p Lasix Oral Lasix for now.
Close monitoring of renal function/ K level.
# Acute right and left peroneal vein DVT
s/p IV heparin gtt
Eliquis has been held secondary to hemothorax
# Episode of hypotension
DC losartan
Currently on carvedilol and Lasix
May to consider decreasing dose if needed
Orthostatic vital signs
# S/P Wedge Resection of the Right Lower Lobe Lung Cancer & Mediastinal Lymph Node Dissection by Dr Banuelos 04/15
-Bruising noted around surgical site
# Anemia of chronic disease due to underlying CKD stage IIIb
chronic anemia ( HGB around 10 in December 2024) acute on chronic anemia with
Acute blood loss anemia postsurgery and bruising of chest wall ( 10X 12 cm)
s/p 2 units of blood transfusion on 04/26. Patient signed consent.
I V iron . Hgb 9.1
#chronic pain syndrome with opioid dependency
Acute on chronic pain
c/w long acting oral morphine 15mg q12h and change oxy to prn
#Troponin elevation c/w non ischemic troponin elevation due to hypoxia
no known h/o CAD. No recent CP.
- trend troponin is down
- echo of heart: Normal left ventricular size and systolic function with LV ejection fraction visually estimated 60 to 65% and mild LVH.
# Sepsis POA/ Septic shock: Resolved.
- Held BP meds while low BP
- Started on stress dose steroid now tapering then off
- Resumed Coreg
History of CVA
- Continue statin and ezetimibe
Sacrum pressure injury stage 2 -poa
-Wound care.
DVT prophylaxis�SCDs
CODE STATUS�full code
PT recs-SNF eventually
Anticipated Discharge: 24 - 48 hours
Subjective/Interval History
-
Date of Service: May 05, 2025
states of R sided chest wall pain
Objective Data
-
Labs:
Laboratory Results
05/05/25
06:53
WBC 12.6 H
Hgb 9.1 L
Hct 29.2 L
Plt Count 279
Sodium 134 L
Potassium 3.5
Chloride 103
Carbon Dioxide 26
BUN 32 H
Creatinine 1.4 H
Glucose 135 H
Calcium 9.3
Vital Signs:
Vital Signs
Temp Pulse Resp BP Pulse Ox
98.3 F 68 14 130/69 97
05/05/25 07:25 05/05/25 07:55 05/05/25 07:55 05/05/25 07:25 05/05/25 07:55
I&O
05/04/25 05/05/25 05/06/25
06:59 06:59 06:59
Intake Total 960 / 960
Balance 960 / 960
Data Reviewed
-
Total Time Spent with Patient (in minutes): 55
--- NOTE | 2025-05-05 11:24 | W.PN.ID1 ---
Date of Service
Date of Service: May 05, 2025
Today's Communication
Sign off.
Assessment / Plan
Right-sided pneumonia
Leukocytosis
Hypoxemic respiratory failure; s/p BiPAP
Bilateral DVTs
Hyperglycemia
Lactic acidosis
Elevated troponin
Bacteriuria
Asthma
Lung cancer
Hx CVA (aneurysm)
HTN
HLD
NIDDM
Chronic back pain
Narcotic dependence
Hx nephrolithiasis
Recommendations:
Low-grade leukocytosis persists. No fevers or other signs/symptoms of infection.
Repeat blood cultures negative; 04/25 blood culture with gram-positive bacilli (contaminant)
Legionella and pneumococcal antigens negative
Patient is s/p a 5-day course of Azithromycin and 10-day course of cefepime.
Observe off antibiotics.
Continue with supportive measures.
Monitor white count and temperature curve.
Repeat CXR in 4 to 6 weeks.
Little more to offer from a Infectious Diseases standpoint.
Will see again at your request.
����������������������������������������������������������
Chief Complaint
-: Leukocytosis and Pneumonia
Subjective / Review of Systems
Review of Systems: No Fever and No Chills
Vital Signs / Physical Exam
Vital Signs
Vital Signs
Temp Pulse Resp BP Pulse Ox
98.3 F 68 14 130/69 97
05/05/25 07:25 05/05/25 07:55 05/05/25 07:55 05/05/25 07:25 05/05/25 07:55
Physical Exam
Constitutional: No Acute Distress, Comfortable and Non-toxic
Eyes: Sclera Anicteric
Cardiovascular: Regular Rate and S1/S2; Negative S3/S4
Pulmonary: Clear, Coarse and Non Labored
Gastrointestinal: Soft, Non Distended and Normal Bowel Sounds
Extremities: Edema and Cyanosis
Skin: Warm and Dry
Neurological: Awake and Alert
Psychological: Calm
Objective Data
Lab Data
Lab Results
05/05/25 06:53
05/05/25 06:53
PT 15.9 Sec (11.4-14.6) H 04/25/25 04:17
INR 1.24 04/25/25 04:17
APTT 75.1 Sec (23.4-35.0) H 04/29/25 07:25
Estimated Creat Clear 39 ml/min 05/05/25 06:53
Lactic Acid 1.4 mmol/L (0.7-2.0) 04/26/25 17:55
Total Bilirubin 0.4 mg/dl (0.2-1.3) 04/28/25 11:24
AST 47 U/L (14-36) H 04/28/25 11:24
ALT 40 U/L (0-35) H 04/28/25 11:24
Alkaline Phosphatase 62 U/L (38-126) 04/28/25 11:24
Most recent labs reviewed.
Micro Results:
04/25/25 03:33 Blood Culture - Final
Blood/Venous Diptheroids
Gram Stain - Final
04/25/25 03:33 Blood Culture - Final
Blood/Venous No Growth - Final Report
04/25/25 10:37 Urine Culture - Final
Urine NO GROWTH
04/25/25 10:37 Streptococcus pneumoniae Antigen (M - Final
Urine Negative for Streptococcus pneumoniae antigen.
A negative result does not exclude infection with
Streptococcus pneumoniae. Clinical correlation is
recommended.
04/25/25 10:37 Legionella Urinary Antigen - Final
Urine Negative for Legionella pneumophila Serogroup 1 antigen.
A negative result does not rule out the possiblity of
Legionella infection due to other serogroups or species of
Legionella. Clinical correlation is recommended.
04/25/25 04:17 Nasal Screen MRSA (PCR) - Final
Nose MRSA not detected - performed by PCR methodology.
04/25/25 02:20 Influenza Types A & B (JAYSHREE) - Final
Nasal Swab Negative for Influenza A & B, NAAT
Negative results must be combined with clinical observations
and patient history.
Nucleic Acid Amplification test (NAAT)performed on the
[employer] platform.
Imaging:
04/28/2025 CXR (portable): patchy bibasilar opacities suggestive of pneumonia versus subsegmental atelectasis. No significant changes compared to prior study. Small right pleural effusion is noted. Please see full dictation for additional detail.
08/27/2024 CXR (portable): volume loss in the right hemithorax. Worsening aeration of the right lung compared to prior chest x-ray. Minimal linear opacity at the left lung base. Please see full dictation for additional detail.
--- NOTE | 2025-05-05 11:48 | CON.ONC ---
Consultation
-
Date Consultation Requested: 05/05/25
Date Consultation Performed: 05/05/25
Requesting Provider: Dr. Shamir Flower
Performing Provider: Dr. Abdullahi Richter
Reason for Consultation: DVT, Anemia
Impression
Impression
Right hemothorax, right chest wall bruising concern for ABLA s/p 1U prbc & ferrlicit x 5 doses with Hgb 7.4g/dl to 9g/dL. Anemia with Hgb trending down for ~12 to 7g/dL since RLL resection
S/P Wedge Resection of the Right Lower Lobe Lung Cancer & Mediastinal Lymph Node Dissection by Dr Banuelos 04/15
1.9 cm round low-attenuation hepatic lesion
JOHNNY on CKD IIIB
Hyponatremia
acute bilateral peroneal vein DVT
chronic pain syndrome with opioid dependency
Sepsis/Septic shock, PNA completed 5 day course of abx as recommended by ID
HHS/uncontrolled DM -DM educator following
History of CVA
Plan
Plan
anticoagulation for acute DVT on hold due to concern for right hemithorax
Recommend IVC filter until bleeding concern has resolved. discussed risk/benefit of anticoagulation, IVC filter, and thrombosis
consider PET vs MRI ab to further evaluate 1.9 cm round low-attenuation hepatic lesion. PET may be more useful to also evaluate new enlarged 1.3 cm right paratracheal lymph node as well
Will discuss case with Dr. Riky Banuelos
Patient History
History of Present Illness
69yo F who presented on 04/25 with hypoxia, hypotension, poor urine output. Her symptoms started 04/20 with SOB, dizziness, and chest heaviness. Her initial evaluation was notable for O2 sat 70%. Her CXR showed possible right sided pneumonia. SHe
was admitted, started on IVF, IVabx, and supplemental O2. Her repeat CXR showed a right pleural effusion, however, chest US on 04/27 showed to little fluid for safe thoracentesis. Her Hgb has dropped from 12.2g/dL on 04/16 to 7.6g/dL on 04/26. She
was transfused 1U PRBC and given Ferrlecit x 5 doses for symptomatic anemia at that time with improvement of her Hgb to 9.1g/dL today. She underwent b/l LE US which showed b/l peroneal vein thrombus for which she was started on a heparin gtt that
was transitioned to DOAC, however, has been held since last evening due to concern for bleeding. Her CT chest yesterday showed a moderate sized acute right hemothorax, severe edema and ecchymosis in the right breast and right lateral chest wall,
acute nondisplaced osteotomy or fracture of the right lateral 5th rib, new enlarged 1.3cm paratracheal lymph node, moderate Interstitial pneumonitis bilateral upper and lower lung lobes, and a 1.9cm round low attenuation hepatic lesion.
She tells me that she underwent a KANE resection that was diagnostic and curative for NSCLC, squamous subtype. She did not see a medical oncologist, have chemotherapy or radiation therapy at that time. She more recently underwent a RLL lung wedge
resection was diagnostic for NSCLC, squamous cell subtype, PDL 1 1%, NGS Kras mutated. She tells me that this resection was curative and that she does not require a medical oncologist, radiation, or systemic therapy.
Clincally, she report chronic pain. She has dyspnea and chest pressure with activity today. She reports constipation as well. She deneis fever, chills, cough, n/v or abdominal pain.
Past-Medical/Surgical History
PMH Asthma, HTN, HLD, and NIDDM
Past Surgical History: Brain aneurysm clipping, left lung upper lobe resection (2022), right lobe wedge resection (04/15/2025)
Social former smoker, deneis etoh or recreational drugs. retired.
Family non-contributory
Patient Medication
�Medication �Instructions �Recorded �Confirmed �Last Taken �Type
acetaminophen 500 mg tablet 1,000 mg PO BIDPRN PRN mild pain 12/28/24 04/25/25 04/14/25 16:00 History
(Tylenol Extra Strength)
albuterol sulfate 90 mcg/actuation 2 puff inhalation R Q4HPRN PRN sob 12/28/24 04/25/25 04/15/25 06:00 History
aerosol inhaler (Ventolin HFA)
carvedilol 6.25 mg tablet 6.25 mg PO Q12H Blood Pressure 12/28/24 04/25/25 04/14/25 20:00 History
ezetimibe 10 mg tablet 10 mg PO DAILY@1200 High 12/28/24 04/25/25 04/14/25 12:00 History
Cholesterol
glimepiride 1 mg tablet 1 mg PO HS Diabetes 12/28/24 04/25/25 04/14/25 20:00 History
morphine 15 mg tablet,extended 30 mg PO Q12H Pain 12/28/24 04/25/25 04/14/25 20:00 History
release
oxycodone 10 mg tablet 10 mg PO Q8H Pain 12/28/24 04/25/25 04/14/25 20:00 History
tirzepatide 5 mg/0.5 mL 5 mg SC RODRIGUEZ Diabetes 12/28/24 04/25/25 04/03/25 History
subcutaneous pen injector
(Mounjaro)
lidocaine 5 % topical patch 1 patch topical DAILY back #30 ea 01/01/25 04/25/25 04/14/25 Rx
(Lidoderm)
ergocalciferol (vitamin D2) 1,250 1,250 mcg PO QWEEK Supplement 04/08/25 04/25/25 04/10/25 History
mcg (50,000 unit) capsule (Vitamin
D2)
fenofibrate nanocrystallized 145 145 mg PO DAILY High Cholesterol 04/08/25 04/25/25 04/14/25 08:00 History
mg tablet
guaifenesin 600 mg tablet, 600 mg PO BID Congestion 04/08/25 04/25/25 04/14/25 18:00 History
extended release 12 hr (Mucinex)
ibuprofen 200 mg tablet (Advil) 600 mg PO BID Pain 04/08/25 04/25/25 04/07/25 History
losartan 100 mg tablet 100 mg PO DAILY@1200 Blood Pressure 04/08/25 04/25/25 04/14/25 12:00 History
fluticasone 250 mcg-salmeterol 50 1 inh inhalation BID 04/15/25 04/25/25 04/15/25 06:00 History
mcg/dose blistr powdr for Lung/Breathing Issues
inhalation (Advair Diskus)
rosuvastatin 40 mg tablet 40 mg PO DAILY High Cholesterol 04/15/25 04/25/25 04/14/25 20:00 History
Active Medications
Generic Name Dose Route Start Last Admin
Trade Name Freq PRN Reason Stop Dose Admin
Acetaminophen 1,000 mg 05/01/25 08:00 05/05/25 09:18
Acetaminophen 500 Mg Tablet PO 05/29/25 07:59 1,000 mg
BID SARAH Administration
Acetaminophen 650 mg 05/04/25 02:28 05/04/25 15:45
Acetaminophen 325 Mg Tablet PO 06/01/25 02:27 650 mg
Q4HPRN PRN Administration
mild pain/WATSON/temp>100.5
Albuterol/Ipratropium 3 ml 04/25/25 08:00 05/05/25 11:44
Ipratropium 0.5/Albuterol 3 Mg (3 Ml Ampul) INH 3 ml
R QID SARAH Administration
Protocol
Albuterol/Ipratropium 3 ml 04/25/25 04:04
Ipratropium 0.5/Albuterol 3 Mg (3 Ml Ampul) INH
R Q4HPRN PRN
SOB
Protocol
Apixaban 10 mg 04/29/25 09:30 05/04/25 21:21
Apixaban (Eliquis) 5 Mg Tablet PO 10 mg
On Hold: 05/04/25 22:31 BID SARAH Administration
Bisacodyl 10 mg 04/26/25 10:17
Bisacodyl 10 Mg Rectal Suppository RECTAL 05/24/25 10:16
DAILYPRN PRN
Constipation
Budesonide 0.5 mg 04/25/25 20:00 05/05/25 07:53
Budesonide (Pulmicort Respules) 0.5 Mg/2 Ml INH 0.5 mg
R BID SARAH Administration
Protocol
Carvedilol 6.25 mg 04/25/25 11:00 05/05/25 09:19
Carvedilol 6.25 Mg Tablet PO 05/23/25 10:59 6.25 mg
BID SARAH Administration
Dextrose 12.5 grams 04/27/25 18:00
Dextrose 50% (0.5 Grams/Ml) 50 Ml Syringe IV 05/25/25 17:59
[id number] PRN
hypoglycemia
Protocol
Furosemide 80 mg 05/02/25 08:00 05/05/25 09:18
Furosemide 80 Mg Tablet PO 05/30/25 07:59 80 mg
DAILY SARAH Administration
Glucagon 1 mg 04/27/25 18:00
Glucagon 1 Mg Vial IM 05/25/25 17:59
PRN PRN
hypoglycemia
Protocol
Guaifenesin 600 mg 04/27/25 10:00 05/05/25 09:18
Guaifenesin 600 Mg Extended Release Tablet PO 05/25/25 09:59 600 mg
Q12 SARAH Administration
Insulin Glargine 20 units/ 0.2 mls @ 0 mls/hr 04/29/25 08:00 05/05/25 09:19
Device SC 05/27/25 07:59 0.2 mls
DAILY@0800 SARAH Administration
As Directed
Insulin Aspart 0 units 04/27/25 18:00 05/05/25 09:19
Insulin Aspart Moderate Resistance 300 Units/3 Ml Pen.Injctr SC 05/25/25 17:59 Not Given
AC SARAH
Protocol
Insulin Aspart 6 units 04/28/25 11:30 05/05/25 09:20
Insulin Aspart (Novolog) 100 Units/Ml 3 Ml Flexpen SC 05/26/25 11:29 6 units
AC SARAH Administration
Lidocaine 1 patch 04/25/25 08:00 05/05/25 09:19
Lidocaine 4% Topical Patch TOPICAL 05/23/25 07:59 1 patch
DAILY SARAH Administration
Protocol
Morphine Sulfate 15 mg 04/28/25 08:00 05/05/25 09:18
Morphine 15 Mg Extended Release Tablet PO 05/12/25 07:59 15 mg
Q12 SARAH Administration
Ondansetron HCl 4 mg 04/25/25 04:04 05/04/25 15:45
Ondansetron 4 Mg/2 Ml Vial IV 05/23/25 04:03 4 mg
Q6HPRN PRN Administration
nausea/vomiting
Oxycodone HCl 20 mg 05/03/25 11:37 05/05/25 05:46
Oxycodone 10 Mg Regular Release Tablet PO 05/11/25 11:59 20 mg
Q6H PRN Administration
mod-severe pain
Patch Removal 1 patch 04/25/25 20:00 05/04/25 20:10
Remove Lidocaine Patch REMOVE 05/23/25 19:59 1 patch
DAILY@2000 SARAH Administration
Polyethylene Glycol 17 grams 05/05/25 22:00
Polyethylene Glycol Powder 17 Grams Packet PO 06/02/25 21:59
HS SARAH
Rosuvastatin Calcium 40 mg 04/25/25 08:00 05/05/25 09:18
Rosuvastatin (Crestor) 20 Mg Tablet PO 05/23/25 07:59 40 mg
DAILY SARAH Administration
Sennosides 8.8 mg 05/05/25 20:00
Sennosides (Senna Syrup) 8.8 Mg/5 Ml Unit Dose Cup PO 06/02/25 19:59
BID SARAH
Sodium Chloride 0 flush 04/25/25 04:00
Sodium Chloride 0.9% (Flush) Syringe IV 05/23/25 03:59
PER PROTOCOL SARAH
Review of Systems
-
ROS is notable for HPI, otherwise negative
Physical Exam
-
General: no acute distress
HEENT: Normocephalic, Atraumatic
Respiratory: unlabored
GI: Soft and Non Distended
Skin: Warm, Bruising around right chest wall, breast, extending to mid chest, abdomen, and back
Neuro: AO x 3
Psych: calm
Labs
Lab Results
WBC 12.6 10^3/uL (4.8-10.8) H 05/05/25 06:53
RBC 3.16 10^6/uL (4.20-5.40) L 05/05/25 06:53
Hgb 9.1 g/dL (12.0-16.0) L 05/05/25 06:53
Hct 29.2 % (37.0-47.0) L 05/05/25 06:53
MCV 92.4 fL (81.0-99.0) 05/05/25 06:53
MCH 28.8 pg (27.0-31.0) 05/05/25 06:53
MCHC 31.2 g/dL (33.0-37.0) L 05/05/25 06:53
RDW 18.1 % (11.5-14.5) H 05/05/25 06:53
Plt Count 279 10^3/uL (130-400) 05/05/25 06:53
MPV 9.4 fL (7.4-10.4) 05/05/25 06:53
Creatinine 1.4 mg/dL (0.6-1.0) H 05/05/25 06:53
Vital Signs
Vital Signs
Temp Pulse Resp BP Pulse Ox
98.3 F 67 14 130/69 98
05/05/25 07:25 05/05/25 11:45 05/05/25 11:45 05/05/25 07:25 05/05/25 11:45
[2025-05-05 12:14] LABS: Glucose - Point of Care 180 mg/dl (70-99)
[2025-05-05] MEDS: TYLENOL 650 MG PO ×2 (13:28→17:57)
[2025-05-05] MEDS: NOVOLOG FLEXPEN-MODERATE RESISTANCE 1 UNITS SC ×2 (13:29→17:59)
[2025-05-05 13:48] LABS: Glucose - Point of Care 143 mg/dl (70-99)
--- NOTE | 2025-05-05 15:34 | W.PN.PUL3 ---
Today's Communication / Plan
-
To restart anticoagulation with a loading
Continue to monitor closely
Follow H&H
If there is worsening anemia repeat CT chest with angiogram may be necessary.
Currently hemodynamically stable
Will follow
Assessment
-
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
hypertension, brain aneurysm s/p clipping and CVA who presented to the ED via EMS on 04/25/2025 with difficulty breathing ongoing for 1 week found to have a BG of >600 with an anion gap of 19 and lactic acid of 12 who was admitted to the for
acute hypoxic respiratory failure and DKA vs HHS.
Pulmonary consulted 05/05/2025 for right hemothorax.
Plan/recommendations:
Right-sided chest pain/CT scan with moderate right hemothorax.
Ekmehe-mhlkbc-[id number] higher
Discussions with Dr. LOPES --> noted. Possibly remote bleeding-unlikely active at this point.
Will continue to follow symptomatically
Follow H&H
Transfuse as necessary
Hematology correspondence reviewed: Eliquis to be restarted with a loading dose.
Hold IVC filter
Above discussed with patient in detail
-
Patient currently on room air
Clear lung exam
Only reports some right chest discomfort
-
Right Lower Lobe Squamous Cell Lung Cancer s/p Wedge resection 04/25/2025
History of Stage IB lung cancer s/p left upper lobe resection in 2022
-
Increase activity as able
Incentive spirometer
-
Acute Anemia--continue to follow. Transfuse as necessary
-
Bilateral DVT-anticoagulation as above.
Possibly provoked. 3 to 6 months of anticoagulation depending on clinical situation.
-
Out of bed to chair, ambulate, PT/OT
-
Data reviewed:
CT scan 05/04/2025:
LUNGS: There has been a right lower lobe pulmonary wedge resection and resection of the previously visualized right lower lobe pulmonary nodule. There are several bands of atelectasis and scarring in the right lower lobe around the suture line at
the site of the white resection.
There is a moderate-sized acute right hemothorax with hemorrhage in the right pleural space extending into the right major fissure measuring 64 Hounsfield units in attenuation and in the posterior inferior pleural space measuring 56 Hounsfield units
in attenuation. There is a mild amount of compressive subsegmental atelectasis in the basilar segments of the right lower lobe.
There is a moderate amount of ground-glass opacity in the anterior segments of the upper lobes of both lungs surrounding thickened and increased axial interstitial markings. There is similar moderate ground-glass opacity in the lower lobes around
the thickened axial interstitial markings suggesting a moderate inflammatory interstitial pneumonitis.
Subjective Data
-
Date of Service:
Date of Service: May 05, 2025
Chief Complaint: Pulmonary Follow Up (Hemothorax/DVT)
Subjective:
Patient reports some chest discomfort on the right.
Denies shortness of breath at rest
Denies hemoptysis
Review of Systems
Cardiopulmonary: Dyspnea (n)
GI: Abdominal Pain (n) and Nausea (n)
Objective Data
Data Reviewed
Vital Signs / I&O / Oxygen:
Vital Signs
Temp Pulse Resp BP Pulse Ox
98.1 F 68 20 115/57 98
05/05/25 14:40 05/05/25 14:40 05/05/25 14:40 05/05/25 14:40 05/05/25 14:40
Intake and Output
05/04/25 05/05/25 05/06/25
06:59 06:59 06:59
Intake Total 960 / 960
Balance 960 / 960
SaO2 [NIV (Non Invasive 96
Ventilation)]
SaO2 98
Nasal Cannula flow liters per 2
minute
Physical Exam
General: Comfortable
HEENT: Normocephalic
Cardiovascular: S1-S2
Respiratory: Non-Labored Respirations and Accessory Resp Muscle Use
GI: Soft and Non Distended
Neurology: Awake and No Motor Deficits
Skin: Warm
Labs/Micro/Reports
Lab Data
05/05/25 06:53
05/05/25 06:53
--- NOTE | 2025-05-05 17:09 | CM ---
Chart reviewed. no plan for dc at this time.
[2025-05-05 17:52] LABS: Glucose - Point of Care 166 mg/dl (70-99)
[2025-05-05] MEDS: ELIQUIS 5 MG PO (19:46)
[2025-05-05] MEDS: SENNA SYRUP 8.8 MG PO (19:46)
[2025-05-05] MEDS: REMOVE LIDOCAINE PATCH 1 PATCH REMOVE (19:46)
[2025-05-05] MEDS: MS CONTIN (EXTENDED RELEASE) 30 MG PO (19:46)
[2025-05-05 21:16] LABS: Glucose - Point of Care 295 mg/dl (70-99)
[2025-05-05] MEDS: MIRALAX 17 GRAMS PO (21:19)
[2025-05-06] VITALS (8 sets, daily range): BP systolic 86–142; BP diastolic 53–65; PULSE 78–89; O2SAT 95; BMI 37.1
[2025-05-06] MEDS: ROXICODONE 20 MG PO ×2 (06:20→12:27)
[2025-05-06] MEDS: PULMICORT 0.5 MG INH ×2 (07:09→19:21)
[2025-05-06] MEDS: DUONEB 3 ML INH ×4 (07:09→19:21)
[2025-05-06 07:26] LABS: Glucose - Point of Care 140 mg/dl (70-99)
[2025-05-06 07:36] LABS: Hematocrit 30.7 % (37.0-47.0); Hemoglobin 9.7 g/dL (12.0-16.0)
[2025-05-06 07:37] LABS: Mean Corp Hgb Conc. 31.6 g/dL (33.0-37.0); Mean Corpuscular Volume 91.6 fL (81.0-99.0); Platelet Count 275 10^3/uL (130-400); Red Cell Dist. Width 18.0 % (11.5-14.5)
--- NOTE | 2025-05-06 07:43 | PN.DE.MGMTRT ---
Insulin Management
- -
05/06/2025: Diabetes Management Follow up
Patient admitted with c/o increasing SOB since Friday, 04/20. 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
Resection & Mediastinal Lymph Node Dissection by Dr Banuelos 04/15. On admission she was found to be saturating at 70%. Chest x-ray revealed possible right sided pneumonia. She was tried on BiPAP, developed hypotension received IV fluids with good
response. NEW finding of R & L peroneal vein DVT.
Prior to admission was taking Glimepiride 1mg daily @ HS and Mounjaro 5 on Sundays.
She states that she was seeing Endo Dr. Neil and had been taking Jardiance 25mg daily Metformin 1000mg BID and Glimepiride 2mg but the Jardiance and Metformin were discontinued, and the glimepiride was reduced to 1mg daily 3 weeks ago due to CKD.
A1C 8.1%, Cr 1.6, eGFR 34.48.
Pt awake, alert, oriented, resting in bed, offers no complaints, on O2 via NC, able to discuss diabetes care plan.
05/05 Glucose range yesterday 143 to 180. Fasting glucose today 124 V
Will continue current regimen Lantus 20 units in AM with NovoLog 6 units AC and moderate corrective.
Discussed with patient about insulin regimen and importance of staying on insulin given poor kidney function and she was in agreement. For SNF.
Discussed with nurse. Will cont to follow. Waiting for SNF placement.
Diabetes History
- -
Type of Diabetes: 2 requiring insulin (0)
Pre-Admission Diabetes Regimen
05/05/25
06:53
Creatinine 1.4 H
Lab Results
Hemoglobin A1c 8.1 % (4.0-5.9) H 04/25/25 06:37
Insulin Pump Settings
IP Diabetes Regimen
11/12/2205/05/25 05/05/25
06:53 12:03 13:36
Glucose 135 H
POC Glucose 180 H 143 H
05/05/25 05/05/25 05/06/25
17:51 21:14 07:24
Glucose
POC Glucose 166 H 295 H 140 H
Meal type: Breakfast
Amount consumed: 90%
Patient Education
[2025-05-06 08:01] LABS: Blood Urea Nitrogen 31 mg/dl (7-17); Calcium 9.1 mg/dl (8.4-10.2); Carbon Dioxide 28 mmol/L (22-30); Chloride 101 mmol/L (98-107); Estimated Creatinine Clearance 42 ml/min; Glucose 124 mg/dl (70-99); Potassium 3.6 mmol/L (3.5-5.1); Sodium 137 mmol/L (135-145); eGFR 44.24
[2025-05-06 08:22] LABS: Nucleated Red Blood Cells % 0.2 %
--- NOTE | 2025-05-06 09:05 | W.PN.ONC2 ---
Documented by User: [email or web address] Ledezma 05/06/25 11:30
Today's Communication / Plan
-
daily CBC
continue DOAC
monitor for bleeding
OP follow up with Dr. Riky Banuelos
Impression
Impression
NSCLC, squamous subtype s/p resection in 2022 and RUL & Mediastinal Lymph Node Dissection 04/15/[address] Riky Banuelos for curative intent
Right hemothorax, right chest wall bruising concern for ABLA s/p 1U prbc & ferrlicit x 5 doses with Hgb 7.4g/dl > 9g/dL since transfusion support on 04/26
1.9 cm round low-attenuation hepatic lesion
JOHNNY on CKD IIIB
Hyponatremia
acute bilateral peroneal vein DVT -provoked by malignancy and surgery
chronic pain syndrome with opioid dependency
Sepsis/Septic shock, PNA completed 5 day course of abx as recommended by ID
HHS/uncontrolled DM -DM educator following
History of CVA
Plan
Plan
Conferred with Dr. Riyk Banuelos on 05/05 and reviewed hemoglobin trend which appears stable since transfusion on 04/26/2025. Suspect that the current collection does not reflect active bleeding. Apixaban resumed without load 05/05 apixaban without loading.
Hold IVC filter for now.
Consider OP PET to evaluate round low-attenuation hepatic lesion and new enlarged 1.3 cm right paratracheal lymph node
Subjective/Objective
Subjective
no new complaints
afebrile, no hypotension, 2L NC
chronic pain at baseline
Vital Signs:
Vital Signs
Temp Pulse Resp BP Pulse Ox
98.7 F 76 18 129/61 91
05/06/25 07:41 05/06/25 08:37 05/06/25 08:37 05/06/25 07:41 05/06/25 08:37
Lab Results:
Laboratory Data
WBC 12.7 10^3/uL (4.8-10.8) H 05/06/25 06:57
Hgb 9.7 g/dL (12.0-16.0) L 05/06/25 06:57
Plt Count 275 10^3/uL (130-400) 05/06/25 06:57
PT 15.9 Sec (11.4-14.6) H 04/25/25 04:17
INR 1.24 04/25/25 04:17
APTT 75.1 Sec (23.4-35.0) H 04/29/25 07:25
eGFR 44.24 05/06/25 06:57
Physical Exam
HEENT: Moist Mucous Membranes; No Jaundice
Pulmonary: Other (unlabored)
GI: Soft
Extremities: Pulses Present

Documented by User: Bulmaro Juarez MD 05/06/25 14:49
Plan
Plan
Conferred with Dr. Riky Banuelos on 05/05 and reviewed hemoglobin trend which appears stable since transfusion on 04/26/2025. Suspect that the current collection does not reflect active bleeding. Apixaban resumed without load 05/05 apixaban without loading.
Hold IVC filter for now.
Consider OP PET to evaluate round low-attenuation hepatic lesion and new enlarged 1.3 cm right paratracheal lymph node
Hematology/ Oncology Addendum:
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
-eliquis resumed - 5mg BID
-monitor CBC
-follow clinically
-outpt f/u
[2025-05-06] MEDS: NOVOLOG FLEXPEN-MODERATE RESISTANCE SC (09:36)
[2025-05-06] MEDS: LIDOCAINE 4% PATCH 1 PATCH TOPICAL (09:40)
[2025-05-06] MEDS: SENNA SYRUP 8.8 MG PO ×2 (09:40→20:15)
[2025-05-06] MEDS: COREG 6.25 MG PO ×2 (09:40→20:14)
[2025-05-06] MEDS: ELIQUIS 5 MG PO ×2 (09:41→20:14)
[2025-05-06] MEDS: MS CONTIN (EXTENDED RELEASE) PO (09:41)
[2025-05-06] MEDS: LASIX PO (09:41)
[2025-05-06] MEDS: MUCINEX 600 MG PO ×2 (09:41→20:15)
[2025-05-06] MEDS: LANTUS 0.2 UNITS SC (09:42)
[2025-05-06] MEDS: TYLENOL 1000 MG PO ×2 (09:43→20:15)
[2025-05-06] MEDS: NOVOLOG FLEXPEN 6 UNITS SC ×3 (09:43→16:58)
[2025-05-06] MEDS: CRESTOR 40 MG PO (09:47)
--- NOTE | 2025-05-06 12:06 | W.PN.PUL3 ---
Today's Communication / Plan
-
Follow hemoglobin
If there is drop in hemoglobin then obtain chest imaging
Incentive spirometry
Chest pain is improved-now complaining of hip pain. Judicious narcotic use
Incentive spirometry
Continue nebulizers until fully recovered-can continue at rehab.
Will see again on Friday. Please call with questions over the weekend.
Assessment
-
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
hypertension, brain aneurysm s/p clipping and CVA who presented to the ED via EMS on 04/25/2025 with difficulty breathing ongoing for 1 week found to have a BG of >600 with an anion gap of 19 and lactic acid of 12 who was admitted to the for
acute hypoxic respiratory failure and DKA vs HHS.
Pulmonary consulted 05/05/2025 for right hemothorax.
Plan/recommendations:
Right-sided chest pain/CT scan with moderate right hemothorax.
Anemia-stable.
Discussions with Dr. LOPES --> noted. Possibly remote bleeding-unlikely active at this point.
Will continue to follow symptomatically-follow H&H daily.
Transfuse as necessary
Hematology correspondence reviewed: Eliquis to be restarted with a loading dose. 5 mg twice a day.
Hold IVC filter
-
2 L nasal cannula-low rate supplemental oxygen. Likely can be weaned off.
Clear lung exam
Incentive spirometry
Approximately be due to multiple factors including hypoventilation due to pain, right-sided effusion/hemothorax.
-
Right Lower Lobe Squamous Cell Lung Cancer s/p Wedge resection 04/15/2025
History of Stage IB lung cancer s/p left upper lobe resection in 2022
-
Exertional dyspnea likely multifactorial: Not bronchospastic on exam.
Anemia/deconditioning/right hemothorax/recent surgery.
Increase activity as able
Incentive spirometer
Continue budesonide/DuoNebs until fully recovered.(Can restart inhalers in the outpatient setting)-no significant emphysema on CAT scan.
There is evidence of possible postinflammatory scarring, radiographic follow-up in the outpatient setting will be required
-
Anemia: Follow closely. Currently stable
-
Analgesia with narcotics-follow respiratory status closely.
Patient reports that the chest pain is improved.
Not she is complaining of left hip pain.
-
Bilateral DVT-anticoagulation as above.
Possibly provoked. 3 to 6 months of anticoagulation depending on clinical situation.
-
Out of bed to chair, ambulate, PT/OT
-
Follow-up in our office after discharge.
Follow-up with Dr. Riky Lopes after discharge.
-
Completed antibiotic therapy for pneumonia per infectious disease.
Infectious disease has signed off.
-
Can observe over the weekend for evidence of acute bleeding.
Will see again on Friday.
Over the weekend, please call if there is drop in hemoglobin. CAT scan will be needed.
If by Friday stable discharge planning.
-
Data reviewed:
CT scan 05/04/2025:
LUNGS: There has been a right lower lobe pulmonary wedge resection and resection of the previously visualized right lower lobe pulmonary nodule. There are several bands of atelectasis and scarring in the right lower lobe around the suture line at
the site of the white resection.
There is a moderate-sized acute right hemothorax with hemorrhage in the right pleural space extending into the right major fissure measuring 64 Hounsfield units in attenuation and in the posterior inferior pleural space measuring 56 Hounsfield units
in attenuation. There is a mild amount of compressive subsegmental atelectasis in the basilar segments of the right lower lobe.
There is a moderate amount of ground-glass opacity in the anterior segments of the upper lobes of both lungs surrounding thickened and increased axial interstitial markings. There is similar moderate ground-glass opacity in the lower lobes around
the thickened axial interstitial markings suggesting a moderate inflammatory interstitial pneumonitis.
Subjective Data
-
Date of Service:
Date of Service: May 06, 2025
Chief Complaint: Pulmonary Follow Up (Hemothorax/DVT)
Subjective:
Continues to report some degree of right chest discomfort
Denies increased cough or phlegm production
On low rate supplemental oxygen
Review of Systems
Cardiopulmonary: Dyspnea (none at rest) and Dyspnea on Exertion (n)
Objective Data
Data Reviewed
Vital Signs / I&O / Oxygen:
Vital Signs
Temp Pulse Resp BP Pulse Ox
98.2 F 64 18 104/54 97
05/06/25 11:25 05/06/25 11:27 05/06/25 11:27 05/06/25 11:25 05/06/25 11:27
Intake and Output
05/05/25 05/06/25 05/07/25
06:59 06:59 06:59
Intake Total 960 / 960
Balance 960 / 960
SaO2 [NIV (Non Invasive 96
Ventilation)]
SaO2 97
Nasal Cannula flow liters per 2
minute
Physical Exam
General: Comfortable
HEENT: Normocephalic
Cardiovascular: S1-S2
Respiratory: Non-Labored Respirations, Accessory Resp Muscle Use and Other (Decreased breath sounds on the right)
GI: Soft and Non Distended
Neurology: Awake and No Motor Deficits
Skin: Warm
Labs/Micro/Reports
Lab Data
05/06/25 06:57
05/06/25 06:57
--- NOTE | 2025-05-06 12:13 | W.PN.HOSP.TC ---
Today's Communication/Plan
-
Decrease MS Contin
Monitor blood pressure
Holding Lasix this morning
Wean O2 as tolerated
Trend hemoglobin
Orthostatics vital signs
Assessment / Plan
Assessment / Plan
Physical Exam
General: Nasal O2, not in distress, able to speak in full sentences, conversant
HEENT: Normocephalic, Atraumatic
Respiratory: better air entry, no wheezes. Bruising around right chest wall noted in presence of RN, midflow noted
Cardiac: S1/S2
GI: Soft and Non Distended
Genito-urinary: No Spicer
Musculoskeletal: No Clubbing and No Edema
Skin: Warm
Neuro: AO x 3 and Nonfocal/grossly intact
Psych: calm, Intact Judgment/Insight
# Right hemothorax
# S/P Wedge Resection of the Right Lower Lobe Lung Cancer & Mediastinal Lymph Node Dissection by Dr Banuelos 04/[address] chest results with Dr. Banuelos. He said he reviewed patient CAT scan results from overnight. He thinks patient is not actively bleeding and that this is prior blood pushing out currently. Based on patient hemoglobin Dr. Banuelos say
he feels comfortable putting patient back on Eliquis for her DVT and monitor.
Discussed with pulmonary also and patient was restarted on Eliquis. However loading dose was further canceled and started on 5 mg twice daily
Patient hemoglobin has remained stable
#Acute Hypoxic respiratory failure due to pneumonia vs Atelectasis required assisted ventilation
#Acute respiratory acidosis and metabolic acidosis
#High pulmonary artery pressure
O2 down to 1-2 liters, SaO2 around 94% - 96%
Off Bipap
-s/p thoracentesis for moderate right pleural effusion on 04/27
-Blood culture No growth
-Started on vancomycin and Zosyn for now then on Cefepime & Zithromax. Patient completed 10-day course of treatment with cefepime and 5d course of zithromax
-Elevated procalcitonin
-Negative COVID & Flu . MRSA screen is negative
-Wean down o2 as tolreated. Encourage IS.
-History of asthma, minimal wheezing at this time, dc IV steroid ( might be causing anxiety), c/w breathing treatments.
-Appreciate pulmonary/ ID help
Anion gap metabolic lactic acidosis
HHS, blood glucose > 600, recent hx of high sugar intake, sepsis and non-compliance with antidiabetic regimen
- s/p insulin gtt for HHS not DKA
- s/p aggressive fluid resuscitation
Resolved. Currently on glargine 20 units and NovoLog 6 units AC. POC 147.
# JOHNNY on CKD IIIB
# Hyponatremia
GFR around baseline . Creatinine 1.2-1.4
Holding Losartan probably discontinued at discharge as per episode of hypotension at times.
Volume overload: given Lasix.
Nephrology following.
# Volume overload after IVF resuscitation while dealing with sepsis
#Acute non cardiogenic pulmonary edema
s/p Lasix Oral Lasix for now.
Close monitoring of renal function/ K level.
# Acute right and left peroneal vein DVT
s/p IV heparin gtt
Eliquis restarted at 5 mg twice daily dosing
# Episode of hypotension
DC losartan
Currently on carvedilol and Lasix
May to consider decreasing dose if needed
Hold Lasix for today
Orthostatic vital signs
# S/P Wedge Resection of the Right Lower Lobe Lung Cancer & Mediastinal Lymph Node Dissection by Dr Banuelos 04/15
-Bruising noted around surgical site
# Anemia of chronic disease due to underlying CKD stage IIIb
chronic anemia ( HGB around 10 in December 2024) acute on chronic anemia with
Acute blood loss anemia postsurgery and bruising of chest wall ( 10X 12 cm)
s/p 2 units of blood transfusion on 04/26. Patient signed consent.
I V iron . Hgb 9. 7
#chronic pain syndrome with opioid dependency
Acute on chronic pain
Continue with MS Contin 15 mg every 12. Patient is not able to tolerate 30 mg. Continue with oxycodone 20 mg as needed home regimen
#Troponin elevation c/w non ischemic troponin elevation due to hypoxia
no known h/o CAD. No recent CP.
- trend troponin is down
- echo of heart: Normal left ventricular size and systolic function with LV ejection fraction visually estimated 60 to 65% and mild LVH.
# Sepsis POA/ Septic shock: Resolved.
- Held BP meds while low BP
- Started on stress dose steroid now tapering then off
- Resumed Coreg
History of CVA
- Continue statin and ezetimibe
Sacrum pressure injury stage 2 -poa
-Wound care.
DVT prophylaxis�SCDs
CODE STATUS�full code
PT recs-SNF eventually
Discussed with pulmonary
Anticipated Discharge: 24 - 48 hours
Subjective/Interval History
-
Date of Service: May 06, 2025
this morning states feeling foggy/dizzy
received oxycodone earlier this morning
Objective Data
-
Labs:
Laboratory Results
05/06/25
06:57
WBC 12.7 H
Hgb 9.7 L
Hct 30.7 L
Plt Count 275
Sodium 137
Potassium 3.6
Chloride 101
Carbon Dioxide 28
BUN 31 H
Creatinine 1.3 H
Glucose 124 H
Calcium 9.1
Vital Signs:
Vital Signs
Temp Pulse Resp BP Pulse Ox
98.2 F 64 18 104/54 97
05/06/25 11:25 05/06/25 11:27 05/06/25 11:27 05/06/25 11:25 05/06/25 11:27
I&O
05/05/25 05/06/25 05/07/25
06:59 06:59 06:59
Intake Total 960 / 960
Balance 960 / 960
[2025-05-06 12:31] LABS: Glucose - Point of Care 210 mg/dl (70-99)
[2025-05-06] MEDS: NOVOLOG FLEXPEN-MODERATE RESISTANCE 3 UNITS SC (12:32)
--- NOTE | 2025-05-06 14:10 | W.PN.NEPH.PH ---
Today's Communication / Plan
-
Continue Lasix
Assessment/Plan
-
Assessment
JOHNNY
Hypotension
Right side lung infiltrate, effusion
Chronic pain syndrome
Sepsis
Diabetes mellitus type 2, hyperglycemia
Bilateral peroneal vein DVT
Anemia
Lung cancer status post right lower lobe wedge resection 04/15/2025, left upper lobe wedge resection 2022
History of stroke, brain aneurysm status post clipping
Lactic acidosis
Hypoalbuminemia
proteinuria
Plan:
continue lasix 80mg po daily,
Follow BMP
pulmonary/IR eval for hemothorax= discussed with pulmonary no acute intervention follow hemoglobin
eliquis on hold
-
-
Date of Service: May 06, 2025
CC / HPI / ROS
-
Chief Complaint:
JOHNNY
History of Present Illness:
JOHNNY/creatinine stable 1.4
Sodium up to 134
hgb stable 9.1
Acidosis resolved
BP stable off pressors
still on supplemental O2
CT chest 05/04 x IV with acute right hemothorax
Review of Systems:
no cp
Shortness of breath stable
still on supplemental O2
Labs
-
Labs:
WBC 12.7 10^3/uL (4.8-10.8) H 05/06/25 06:57
RBC 3.35 10^6/uL (4.20-5.40) L 05/06/25 06:57
Hgb 9.7 g/dL (12.0-16.0) L 05/06/25 06:57
Hct 30.7 % (37.0-47.0) L 05/06/25 06:57
Plt Count 275 10^3/uL (130-400) 05/06/25 06:57
Sodium 137 mmol/L (135-145) 05/06/25 06:57
Potassium 3.6 mmol/L (3.5-5.1) 05/06/25 06:57
Chloride 101 mmol/L (98-107) 05/06/25 06:57
Carbon Dioxide 28 mmol/L (22-30) 05/06/25 06:57
BUN 31 mg/dl (7-17) H 05/06/25 06:57
Creatinine 1.3 mg/dL (0.6-1.0) H 05/06/25 06:57
eGFR 44.24 05/06/25 06:57
Glucose 124 mg/dl (70-99) H 05/06/25 06:57
Calcium 9.1 mg/dl (8.4-10.2) 05/06/25 06:57
Phosphorus 6.6 mg/dl (2.5-4.5) H 04/25/25 03:01
Tgm-P-Zjyqmcsjkis Pept 653 pg/ml 05/04/25 05:24
Albumin 2.7 g/dl (3.5-5.0) L 04/28/25 11:24
Physical Exam
-
Vital Signs:
Vital Signs
Temp Pulse Resp BP Pulse Ox
98.2 F 64 18 104/54 97
05/06/25 11:25 05/06/25 11:27 05/06/25 11:27 05/06/25 11:25 05/06/25 11:27
Cardiovascular:: Regular rate and rhythm
Respiratory:: Bilateral: Coarse
Lung Excursion:: Normal
Abdomen:: Nontender and Soft
Bowel Sounds:: Normal
Extremity Edema:: None: Bilateral:
--- NOTE | 2025-05-06 14:39 | CM ---
Authorization completed with [facility] for [facility]
Authorization for skilled rehab auth #[id number]
Start date 05/06/25, NRD 05/10/25
updates to # [phone]
ambulance auth with acute care BLS auth # [id number] (auth good 05/06 to 05/08)
[2025-05-06 16:07] LABS: Glucose - Point of Care 164 mg/dl (70-99)
--- NOTE | 2025-05-06 16:21 | CM ---
Pt accepted for transfer to [facility] when medically stable. Discharge anticipated for today, however an incidental finding of hemothorax was found today, so pt staying for monitoring of hgb.
CM met with Eula at bedside today. She is mentally ready for transfer to [place], as she has been in the hospital longer than she expected and would like a change of scenery.
Plan: Transfer to [facility] when medically cleared. Ambulance transport forms placed on the chart.
[2025-05-06] MEDS: NOVOLOG FLEXPEN-MODERATE RESISTANCE 1 UNITS SC (16:58)
[2025-05-06] MEDS: ZOFRAN 4 MG IV (20:10)
[2025-05-06] MEDS: MS CONTIN (EXTENDED RELEASE) 15 MG PO (20:14)
[2025-05-06] MEDS: REMOVE LIDOCAINE PATCH 1 PATCH REMOVE (20:37)
[2025-05-06 21:25] LABS: Glucose - Point of Care 176 mg/dl (70-99)
[2025-05-06] MEDS: MIRALAX 17 GRAMS PO (23:06)
[2025-05-07 03:22] VITALS: BP 131/62
[2025-05-07 06:00] VITALS: BMI 37.0
[2025-05-07 07:33] LABS: Glucose - Point of Care 136 mg/dl (70-99)
[2025-05-07 08:00] VITALS: BP 113/87
[2025-05-07] MEDS: PULMICORT 0.5 MG INH (08:06)
[2025-05-07] MEDS: DUONEB 3 ML INH ×3 (08:06→15:37)
[2025-05-07 08:12] VITALS: BP 113/87; BP 128/65; PULSE 77; PULSE 84
[2025-05-07] MEDS: NOVOLOG FLEXPEN-MODERATE RESISTANCE SC (08:44)
[2025-05-07] MEDS: NOVOLOG FLEXPEN 6 UNITS SC ×3 (08:57→17:42)
[2025-05-07] MEDS: COREG 6.25 MG PO (08:58)
[2025-05-07] MEDS: LANTUS 0.2 UNITS SC (08:58)
[2025-05-07] MEDS: MS CONTIN (EXTENDED RELEASE) 15 MG PO (08:59)
[2025-05-07] MEDS: MUCINEX 600 MG PO (08:59)
[2025-05-07] MEDS: CRESTOR 40 MG PO (08:59)
[2025-05-07] MEDS: LIDOCAINE 4% PATCH 1 PATCH TOPICAL (08:59)
[2025-05-07] MEDS: SENNA SYRUP 8.8 MG PO (08:59)
[2025-05-07] MEDS: TYLENOL 1000 MG PO (08:59)
[2025-05-07] MEDS: FLUSH (NSS) 1 FLUSH IV (09:00)
[2025-05-07] MEDS: ELIQUIS 5 MG PO (09:04)
[2025-05-07 09:37] LABS: Hematocrit 35.8 % (37.0-47.0); Hemoglobin 10.8 g/dL (12.0-16.0); Mean Corp Hgb Conc. 30.2 g/dL (33.0-37.0); Mean Corpuscular Volume 97.3 fL (81.0-99.0); Nucleated Red Blood Cells % 0.3 %; Platelet Count 262 10^3/uL (130-400); Red Cell Dist. Width 18.4 % (11.5-14.5)
[2025-05-07 10:05] LABS: Blood Urea Nitrogen 27 mg/dl (7-17); Calcium 9.5 mg/dl (8.4-10.2); Carbon Dioxide 30 mmol/L (22-30); Chloride 102 mmol/L (98-107); Estimated Creatinine Clearance 42 ml/min; Glucose 170 mg/dl (70-99); Potassium 3.7 mmol/L (3.5-5.1); Sodium 138 mmol/L (135-145); eGFR 44.24
[2025-05-07] MEDS: LASIX 80 MG PO (10:35)
[2025-05-07 11:19] LABS: Glucose - Point of Care 210 mg/dl (70-99)
[2025-05-07 11:30] VITALS: BP 114/57
--- NOTE | 2025-05-07 11:46 | W.PN.HOSP.TC ---
Today's Communication/Plan
-
po lasix
dc to snf
Assessment / Plan
Assessment / Plan
Physical Exam
General: Nasal O2, not in distress, able to speak in full sentences, conversant
HEENT: Normocephalic, Atraumatic
Respiratory: better air entry, no wheezes. Bruising around right chest wall noted in presence of RN, midflow noted
Cardiac: S1/S2
GI: Soft and Non Distended
Genito-urinary: No Spicer
Musculoskeletal: No Clubbing and No Edema
Skin: Warm
Neuro: AO x 3 and Nonfocal/grossly intact
Psych: calm, Intact Judgment/Insight
# Right hemothorax
# S/P Wedge Resection of the Right Lower Lobe Lung Cancer & Mediastinal Lymph Node Dissection by Dr Banuelos 04/[address] patient [address] chest results with Dr. Banuelos. He said he reviewed patient CAT scan results from overnight. He thinks patient is not actively bleeding and that this is prior blood pushing out currently. Based on patient hemoglobin Dr. Banuelos say
he feels comfortable putting patient back on Eliquis for her DVT and monitor.
Discussed with pulmonary also and patient was restarted on Eliquis. However loading dose was further canceled and started on 5 mg twice daily
Patient hemoglobin has remained stable and is actually trending up.
#Acute Hypoxic respiratory failure due to pneumonia vs Atelectasis required assisted ventilation
#Acute respiratory acidosis and metabolic acidosis
#High pulmonary artery pressure
O2 down to 1-2 liters, SaO2 around 94% - 96%
Off Bipap
-s/p thoracentesis for moderate right pleural effusion on 04/27
-Blood culture No growth
-Started on vancomycin and Zosyn for now then on Cefepime & Zithromax. Patient completed 10-day course of treatment with cefepime and 5d course of zithromax
-Elevated procalcitonin
-Negative COVID & Flu . MRSA screen is negative
-Wean down o2 as tolreated. Encourage IS.
-History of asthma, minimal wheezing at this time, dc IV steroid ( might be causing anxiety), c/w breathing treatments.
-Appreciate pulmonary/ ID help
Anion gap metabolic lactic acidosis
HHS, blood glucose > 600, recent hx of high sugar intake, sepsis and non-compliance with antidiabetic regimen
- s/p insulin gtt for HHS not DKA
- s/p aggressive fluid resuscitation
Resolved. Currently on glargine 20 units and NovoLog 6 units AC. POC 147.
# JOHNNY on CKD IIIB
# Hyponatremia
GFR around baseline . Creatinine 1.2-1.4
Holding Losartan probably discontinued at discharge as per episode of hypotension at times.
Volume overload: given Lasix.
Nephrology following.
# Volume overload after IVF resuscitation while dealing with sepsis
#Acute non cardiogenic pulmonary edema
s/p Lasix Oral Lasix for now.
Close monitoring of renal function/ K level.
# Acute right and left peroneal vein DVT
s/p IV heparin gtt
Eliquis restarted at 5 mg twice daily dosing
# Episode of hypotension
DC losartan
Currently on carvedilol and Lasix
# S/P Wedge Resection of the Right Lower Lobe Lung Cancer & Mediastinal Lymph Node Dissection by Dr Banuelos 04/15
-Bruising noted around surgical site
# Anemia of chronic disease due to underlying CKD stage IIIb
chronic anemia ( HGB around 10 in December 2024) acute on chronic anemia with
Acute blood loss anemia postsurgery and bruising of chest wall ( 10X 12 cm)
s/p 2 units of blood transfusion on 04/26. Patient signed consent.
I V iron . Hgb 10.8
#chronic pain syndrome with opioid dependency
Acute on chronic pain
Continue with MS Contin 15 mg every 12. Patient is not able to tolerate 30 mg. Continue with oxycodone 20 mg as needed home regimen
#Troponin elevation c/w non ischemic troponin elevation due to hypoxia
no known h/o CAD. No recent CP.
- trend troponin is down
- echo of heart: Normal left ventricular size and systolic function with LV ejection fraction visually estimated 60 to 65% and mild LVH.
# Sepsis POA/ Septic shock: Resolved.
- Held BP meds while low BP
- Started on stress dose steroid now tapering then off
- Resumed Coreg
History of CVA
- Continue statin and ezetimibe
Sacrum pressure injury stage 2 -poa
-Wound care.
DVT prophylaxis�SCDs/Eliquis
CODE STATUS�full code
PT recs-SNF later today
More than 30 minutes spent in discharge including
Final examination of the patient
Summarizing hospital stay
Instructions for continuing care to all relevant caregivers
Preparation of discharge records, prescriptions, and referral forms
Total time spent (in minutes): 55
Anticipated Discharge: Today
Subjective/Interval History
-
Date of Service: May 07, 2025
denies dizziness
Had a bowel movement earlier today
Objective Data
-
Labs:
Laboratory Results
05/07/25
09:15
WBC 11.9 H
Hgb 10.8 L
Hct 35.8 L
Plt Count 262
Sodium 138
Potassium 3.7
Chloride 102
Carbon Dioxide 30
BUN 27 H
Creatinine 1.3 H
Glucose 170 H
Calcium 9.5
Vital Signs:
Vital Signs
Temp Pulse Resp BP Pulse Ox
98 F 75 16 114/57 95
05/07/25 11:30 05/07/25 11:41 05/07/25 11:41 05/07/25 11:30 05/07/25 11:30
I&O
05/06/25 05/07/25 05/08/25
06:59 06:59 06:59
Intake Total 400 / 400
Balance 400 / 400
--- NOTE | 2025-05-07 11:50 | W.DCSUMMARY ---
Discharge Summary
Discharge Data
Date of Admission: 04/25/25
Date of Discharge: 05/07/25
-
Pending Results: No
Hospital Course
69-year-old female past medical history of CKD, lung cancer S/P Wedge Resection of the Right Lower Lobe Lung Cancer & Mediastinal Lymph Node Dissection by Dr Banuelos 04/15, chronic pain syndrome with opioid dependency, diabetes mellitus, hypertension,
brain aneurysm s/p clipping and CVA who presented to the hospital with complaints of difficulty breathing and was found to have HHNK with blood glucose >600. Was admitted to the ICU. Status post ICU with insulin drip. Patient was transitioned to
subcutaneous insulin. Patient was also found to have a pneumonia and was treated with antibiotics per infectious disease. Patient completed course of antibiotics through hospitalization. Patient was also found to have a bilateral lower extremity
DVT and was started on anticoagulation with Eliquis. Patient with episode of hypotension at times which was deemed secondary to increased dose of MS Contin which was eventually decreased to 50 mg every 12. Patient also with pleural effusion status
post thoracentesis. Patient creatinine stabilized. Volume overload was noted and received diuretics per nephrology. Was found to have a hypotension at times and losartan was discontinued. Patient also with bruising on the right side when she
underwent surgery. Patient underwent CT chest which showed right hemothorax. Discussed patient CT chest results with Dr. Banuelos. He said he reviewed patient CAT scan results.. He thinks patient is not actively bleeding and that this is prior blood
pushing out currently. Based on patient hemoglobin Dr. Banuelos say he feels comfortable putting patient back on Eliquis for her DVT and monitor. Patient was restarted on low-dose of Eliquis. Per oncology and pulmonary no need for IVC filter. Patient
hemoglobin was monitored on low-dose Eliquis and it remained stable and was trending up. Patient had baseline oxygenation of 2 L which can eventually be weaned down at rehab. Patient was eval by physical and Occupational Therapy with plan to
discharge to retirement facility.
Discharge Plan
-
Patient Disposition: Residential/SNF
Discharge Diagnosis/Procedures: Right hemothorax
Acute hypoxic respiratory failure
Acute respiratory metabolic acidosis
Acute kidney injury chronic kidney disease
Acute right and left peroneal vein DVT
Hypotension
Anemia status post 2 units of blood transfusion
Nonischemic myocardial injury
Pneumonia
Condition: Fair
Diet: 2 Gram Sodium and Restrict fluids to 48 oz
Activity: As tolerated
Driving Restrictions: As prior to admission
Blood Work: CBC and BMP in 5 to 7 days for primary doctor
Referrals:
Belkis Benson MD [Active, Pulmonary Medicine] - in two to three weeks
Referral Note: needs CXR
needs walk test
Riky Banuelos MD [Active, Surgical]
UNKNOWN - PT DOES,NOT KNOW [Family Provider]
Prescriptions:
New
ipratropium-albuterol 0.5 mg-3 mg(2.5 mg base)/3 mL Solution For Nebulization
3 ml inhalation R QID Qty: 90 0RF
insulin aspart U-100 100 unit/mL (3 mL) Insulin Pen
6 unit SC AC Qty: 15 0RF
Eliquis 5 mg Tablet
5 mg PO BID Qty: 60 0RF
Insulin Glargine Lantus [Lantus] 20 UNITS
Subcutaneous Insulin Syringe [Syringe-Insulin] 0 UNIT
As Directed mls/hr SC DAILY@0800
Ordered By: Shamir Flower MD
Last Taken: 05/07/25 08:58 0.2 mls
guaifenesin 600 mg Tablet Extended Release 12hr
600 mg PO Q12 Qty: 30 0RF
furosemide 80 mg Tablet
80 mg PO DAILY Qty: 30 0RF
polyethylene glycol 3350 17 gram Powder In Packet
17 g PO HS Qty: 14 0RF
Continued
carvedilol 6.25 mg Tablet
6.25 mg PO Q12H
acetaminophen [Tylenol Extra Strength] 500 mg Tablet
1,000 mg PO BIDPRN PRN (Reason: mild pain)
albuterol sulfate [Ventolin HFA] 90 mcg/actuation Hfa Aerosol Inhaler
2 puff INHALATION R Q4HPRN PRN (Reason: sob)
ezetimibe 10 mg tablet
10 mg PO DAILY@1200
Mounjaro 5 mg/0.5 mL Pen Injector
5 mg SC RODRIGUEZ
lidocaine [Lidoderm] 5 % adhesive patch,medicated
1 patch topical DAILY Qty: 30 0RF
fenofibrate nanocrystallized 145 mg tablet
145 mg PO DAILY
ergocalciferol (vitamin D2) [Vitamin D2] 1,250 mcg (50,000 unit) Capsule
1,250 mcg PO QWEEK
guaifenesin [Mucinex] 600 mg Tablet Extended Release 12hr
600 mg PO BID
fluticasone propion-salmeterol [Advair Diskus] 250-50 mcg/dose Blister With Device
1 inh INHALATION BID
rosuvastatin 40 mg Tablet
40 mg PO DAILY
Changed
morphine 15 mg Tablet Extended Release
15 mg PO Q12H Qty: 6 0RF
oxycodone 10 mg Tablet
20 mg PO Q8H PRN (Reason: breakthrough pain only.) Qty: 12 0RF
Discontinued
glimepiride 1 mg Tablet
1 mg PO HS
losartan 100 mg tablet
100 mg PO DAILY@1200
ibuprofen [Advil] 200 mg Tablet
600 mg PO BID
Discharge Orders:
Discharge Patient (As Directed); Ordered 05/07/25
Ordered By: Shamir Flower
Discharge Date and Time
Print Language: NEPALI
[2025-05-07] MEDS: ROXICODONE 20 MG PO ×2 (11:55→17:43)
[2025-05-07] MEDS: NOVOLOG FLEXPEN-MODERATE RESISTANCE 3 UNITS SC ×2 (11:58→17:41)
--- NOTE | 2025-05-07 12:30 | PTCARENOTE ---
Pt complaining of her right side/flank area hurting more today. She describes her pain as sharp shooting, the bruising does not extend past the area that was marked. PRN Roxicodone administered. Made Dr. Flower aware of pain, no change in orders,
still planning for discharge today.
--- NOTE | 2025-05-07 13:56 | CM ---
Patient has been medically cleared for discharge to [facility] for long-term and rehab services. Ambulance transport has been scheduled for 4:15 pm. notified via voice message.
Nurse to Nurse Report #: [phone]
Fax #: [phone]
[2025-05-07 15:37] VITALS: BP 132/64
[2025-05-07] MEDS: TYLENOL 650 MG PO (15:47)
[2025-05-07 17:20] LABS: Glucose - Point of Care 211 mg/dl (70-99)
[2025-05-07 17:48] VITALS: BP 128/68
--- NOTE | 2025-05-07 18:02 | PTCARENOTE ---
Left message for Hanane at [facility] about pt receiving PRN Roxicodone prior to transport. Updated pt's discharge med list to reflect and sent new list with pt and faxed.
== END 2025-05-07 18:26 | DRG 871 ==
LOC: 4 EAST ACU 03:14
PROVIDERS: Internal Medicine; Internal Medicine Critical Care Medicine; Nurse Practitioner Family; Nurse Practitioner Gerontology; Radiology Vascular & Interventional Radiology; Registered Nurse; ADMITTING PHYSICIAN Internal Medicine; ATTENDING PHYSICIAN Hospitalist; CONSULT PHYSICIAN Specialist; EMERGENCY PHYSICIAN Emergency Medicine; OTHER PHYSICIAN Internal Medicine Critical Care Medicine; OTHER PHYSICIAN Internal Medicine Hematology & Oncology; OTHER PHYSICIAN Internal Medicine Infectious Disease
PROC: 5A0935A Assistance with Respiratory Ventilation, Less than 24 Consecutive Hours, High Flow/Velocity Cannula (ICD-10-PCS; 2025-04-25)
PROC: 5A09357 Assistance with Respiratory Ventilation, Less than 24 Consecutive Hours, Continuous Positive Airway Pressure (ICD-10-PCS; 2025-04-25)
PROC: 30243N1 Transfusion of Nonautologous Red Blood Cells into Central Vein, Percutaneous Approach (ICD-10-PCS; 2025-04-26)
PROC: 02HV33Z Insertion of Infusion Device into Superior Vena Cava, Percutaneous Approach (ICD-10-PCS; 2025-04-26)
PROC: 0W993ZZ Drainage of Right Pleural Cavity, Percutaneous Approach (ICD-10-PCS; 2025-04-27)
PROC: 02PYX3Z Removal of Infusion Device from Great Vessel, External Approach (ICD-10-PCS; 2025-05-04)
DX: A41.89 Other specified sepsis (principal); J18.9 Pneumonia, unspecified organism; J96.01 Acute respiratory failure with hypoxia; J96.02 Acute respiratory failure with hypercapnia; R65.21 Severe sepsis with septic shock; J81.0 Acute pulmonary edema; F11.20 Opioid dependence, uncomplicated; J98.11 Atelectasis; E87.4 Mixed disorder of acid-base balance; N17.9 Acute kidney failure, unspecified; I5A Non-ischemic myocardial injury (non-traumatic); I82.453 Acute embolism and thrombosis of peroneal vein, bilateral; E87.20 Acidosis, unspecified; J90 Pleural effusion, not elsewhere classified; E87.1 Hypo-osmolality and hyponatremia; J94.2 Hemothorax; E11.22 Type 2 diabetes mellitus with diabetic chronic kidney disease; N18.32 Chronic kidney disease, stage 3b; I12.9 Hypertensive chronic kidney disease with stage 1 through stage 4 chronic kidney disease, or unspecified chronic kidney disease; G89.4 Chronic pain syndrome; E78.00 Pure hypercholesterolemia, unspecified; N28.1 Cyst of kidney, acquired; I95.9 Hypotension, unspecified; D63.1 Anemia in chronic kidney disease; E11.65 Type 2 diabetes mellitus with hyperglycemia; E87.70 Fluid overload, unspecified; L89.152 Pressure ulcer of sacral region, stage 2; J45.909 Unspecified asthma, uncomplicated; M54.50 Low back pain, unspecified; K76.9 Liver disease, unspecified; K59.00 Constipation, unspecified; Z87.440 Personal history of urinary (tract) infections; Z90.2 Acquired absence of lung [part of]; Z85.118 Personal history of other malignant neoplasm of bronchus and lung; Z87.442 Personal history of urinary calculi; Z86.73 Personal history of transient ischemic attack (TIA), and cerebral infarction without residual deficits; Z79.51 Long term (current) use of inhaled steroids; Z91.199 Patient's noncompliance with other medical treatment and regimen due to unspecified reason; Z79.84 Long term (current) use of oral hypoglycemic drugs; Z79.85 Long-term (current) use of injectable non-insulin antidiabetic drugs; Z87.891 Personal history of nicotine dependence; Z88.6 Allergy status to analgesic agent; Z88.1 Allergy status to other antibiotic agents; Z79.899 Other long term (current) drug therapy; Z11.52 Encounter for screening for COVID-19
CPT/HCPCS: 36600; 71045; 71046; 71250; 76604; 76775; 80048; 80053; 80076; 81003; 81015; 82010; 82570; 82805; 82947; 82962; 83036; 83605; 83615; 83735; 83880; 83935; 84100; 84145; 84156; 84300; 84484; 85014; 85018; 85025; 85027; 85610; 85730; 86850; 86900; 86901; 86920; 87040; 87086; 87205; 87449; 87502; 87641; 87811; 87899; 93005; 93306; 93970; 94640; 94660; 94761; 96361; 96365; 97116; 97163; 97167; 97530; 97535; 99291; J2916; P9016

== ENCOUNTER 2025-05-11 18:22 | Inpatient (IN) | payer BC, SELFPAY ==
[2025-05-11] VITALS (26 sets, daily range): BP systolic 78–129; BP diastolic 52–85; BMI 40.8; BMI 36.8
--- NOTE | 2025-05-11 14:48 | ED.GENMED ---
History of Present Illness
General
Chief Complaint: Breathing Problem
Time Seen by Provider: 05/11/25 14:22
Nursing documentation reviewed up to this point in time: agreed with
History of Present Illness
History of Present Illness:
69 year old female brought [facility] the ER from [facility] for evaluation of severe chest pain radiating to her back and neck which started at 6:00 this morning. Patient was found to be hypotensive with low oxygen saturation. Patient recently had a
very complicated extensive inpatient hospitalization status post partial right lung resection complicated by hyperglycemia and bilateral lower extremity DVTs. She has been taking Eliquis daily. Patient also has chronic pain and is on morphine
twice daily-she believes she received this medication this morning without any improvement in her symptoms. Patient denies fevers or chills. She was found to be hypoxic by prehospital personnel who placed her on nasal cannula oxygen. Patient
reports that her blood pressure has been vacillating both high and low over the last several days. She reports poor appetite.
Past History
Past History
ED Past Medical History: Asthma, Cancer (Left upper lobe lung cancer status post left upper lobe resection 2022. Right lower lobe lung cancer status post wedge resection right lower lobe and mediastinal lymph node dissection April 15, 2025), CVA
(Aneurysm), HTN, Hypercholesterolemia, NIDDM, Other (Chronic low back pain, narcotic dependent) and Other (History of renal stones and renal cyst)
ED Past Surgical History: Brain (Titanium clip for brain aneurysm), Orthopedic (Lumbar surgery) and Other (Left upper lung resection 2022, right lung biopsy, right lower lobe wedge resection with mediastinal lymph node dissection April 15, 2025)
Patient has exhibited threatening behavior?: No
Social History
Tobacco: Non-smoker
Alcohol: None
Drug: None
Personal:
Living: with family
Employment: Retired
Family History
Family History: Other (Noncontributory)
Review of Systems
Review of Systems
Allergies reviewed?: Yes
Phy Exam
Physical Exam
Physical Exam:
Vital signs reviewed, patient is awake, alert, appears unwell with dusky coloration, mucous membranes dry, conjunctiva pink, heart regular rate and rhythm without murmurs or ectopy, lungs with diminished air movement bilaterally, poor peripheral
perfusion x 4 extremities, 2+ femoral pulses symmetric, abdomen is soft and nontender, she has large healing ecchymosis present throughout the majority of her right breast, abdomen is soft and nontender, extremities without edema, GCS is 15
Scores
Heart Failure Risk
Heart Failure Risk Score: Not Applicable
Course
Orders/Labs/Results
Orders:
Orders
05/11/25 Lunch
NPO
Allow oral meds: Yes
Allow clear liquids: No
05/11/25 14:22
Cardiac Monitoring- Treatment ONCE
IV Insert/Care/Rem.- Treatment PRN
Vital Signs- Treatment ONCE
Frequency: q15m
Urinalysis Reflex To Culture Urgent
Date Specimen was Collected: 05/11/25
Time Specimen was Collected: 14:52
0.9% Sodium Chloride 1000 ml [Nss] 1,000 ml IV BOLUS
CR Chest Portable - 1 View Urgent
Comment:
Reason For Exam: dyspnea
Reason Study Needs to be Portable: Patient Unstable
O2 Therapy [RESP] Urgent
High Flow Nasal Cannula FIO2%: 40
Titrate/Wean O2 to maintain O2 sat greater than (%): 92
Pulse Ox/cont/shift [RESP] Urgent
Quantity: 1
05/11/25 14:23
Electrocardiogram (*1) Urgent
Reason for Study: Other
Other Reason for Exam: sepsis
EKG- Treatment ONCE
05/11/25 14:24
Morphine Sulfate 2 mg IV NOW STA
05/11/25 14:29
Complete Blood Count/With Diff Urgent
Comprehensive Metabolic Panel Urgent
Lactic Acid Q4H
Comment: CANCEL 2nd LACTIC ACID IF 1st LACTIC ACID IS LESS THAN 2
Magnesium Urgent
Comment: ADD ON
NT-proBNP Urgent
Comment: ADD ON
PTT Urgent
Phosphorus Urgent
Comment: ADD ON
Prothrombin Time Urgent
Troponin I Urgent
Blood Culture Q30M
JOE Source: Blood/Venous
Specimen Description:
05/11/25 14:33
CT Chest PE Study Urgent
Comment: on eliquis for dvt, worsening effusions, chest annika
Reason For Exam: hypoxia
05/11/25 14:50
Echo Follow up Study W Dop Urgent
Reason for Study: dyspnea, hypoxia
Cardiology Consult: Jerome Simons
05/11/25 14:51
HYDROmorphone [Dilaudid] 1 mg IV NOW STA
05/11/25 14:55
Ondansetron Injectable [Zofran] 4 mg .ROUTE .STK-MED ONE
05/11/25 14:57
Ondansetron Injectable [Zofran] 4 mg IV NOW STA
05/11/25 15:03
0.9% Sodium Chloride 250 ml [Nss] 250 ml IV BOLUS
05/11/25 15:26
Add On- LAB Urgent
Tests Added?: [email or web address]
05/11/25 15:27
Cefepime HCl [Maxipime] 1,000 mg IV NOW STA
05/11/25 15:28
Vancomycin [Vancocin] 2,000 mg 0.9% Sodium Chloride 500 ml [Nss] 500 ml IV NOW
05/11/25 15:30
COVID-19 Antigen Urgent
Source: Nasal Swab
Blood Culture Q30M
JOE Source: Blood/Venous
Specimen Description:
Influenza A+B Rapid Molecular Urgent
JOE Source: Nasal Swab
Specimen Description:
05/11/25 16:19
Lactic Acid Q4H
Comment: CANCEL 2nd LACTIC ACID IF 1st LACTIC ACID IS LESS THAN 2
05/11/25 16:39
Consult Pulmonary [PULMONARY CONSULT] Urgent
Consulting Provider: Michael Nielsen
Was physician already notified: Yes
05/11/25 17:03
IRAD CONSULT Urgent
Consulting Provider: Rashawn Little
Was physician already notified: Yes
Procedure being ordered, including laterality if applicable: R thoracentesis
Acknowledgement that appropriate orders are entered: Yes
05/11/25 17:14
Consult Interventional Radiology [IRAD CONSULT] Routine
Consulting Provider: Rashawn Little
Was physician already notified: Yes
Procedure being ordered, including laterality if applicable: IVC filter
Acknowledgement that appropriate orders are entered: Yes
05/11/25 17:16
Chest Tube Insertion Urgent
IRAD CONSULT Urgent
Consulting Provider: Rashawn Little
Was physician already notified: Yes
Procedure being ordered, including laterality if applicable: Right chest tube placement
Acknowledgement that appropriate orders are entered: Yes
05/11/25 17:30
Admit/Transfer Patient As Directed
Co-Sign Provider:
Level of Care: Inpatient admission
Assign to:: ICU
Physician / Group: Marlena Rasheed
Diagnosis: hemothorax with mediastinal shift
Reason for Hospitalization: hemothorax with mediastinal shift
Expected length of stay greater than two midnights?: Yes
ELOS- Estimated Length of Stay in days: 3
I certify the patient meets the requirements for IP care: Yes
PRN Pain Medication Management As Directed
May give lesser potent ordered pain med per pt: Yes
preference::
Protocol:: Medication orders for pain may be administered in a
manner that supports deferring to patient preference
when the pt is:
- Requesting an ordered lesser potent pain medication.
Least to most potent pain medications are defined
as: acetaminophen < NSAID < tramadol < opioids
(morphine, oxycodone, hydromorphone).
- Requesting a lesser dose of the same medication IF
ORDERED.
- Requesting a less intrusive route of administration
if both routes are prescribed by the provider (PO <
IV).
05/11/25 17:34
Code Status As Directed
Resuscitation Status: Full Code
05/11/25 17:36
Add On- LAB Routine
Tests Added?: Body Fluid Triglycerides, LDH, total protein
Acid Fast Culture & Smear Routine
JOE Source: Pleural Fluid
Specimen Description:
Comment: post procedure
Body Fluid Cell Count Routine
What is the Body Fluid: pleural fluid
Comment: post procedure
Body Fluid Glucose Routine
Fluid Source: Pleural
Body Fluid LDH Routine
Fluid Source: Pleural
Body Fluid Protein Routine
Fluid Source: Pleural
Body Fluid Triglycerides Routine
Fluid Source: Pleural
Body Fluid pH Routine
Fluid Source: Pleural
Fluid Culture with Gram Stain Routine
JOE Source: Pleural Fluid
Specimen Description:
Comment: post procedure
05/11/25 17:37
IRAD Cytology Routine
Source: Pleural Fluid, Right
Clinical Impression: right yuko hemothorax
History of Malignancy: yes, lung cancer
05/11/25 17:[address] Non Medication Order As Directed
Physician Order: please send patient to US AFTER IR procedure, thank you
US Periph Venous LOWER Ext Jm Urgent
Comment: perform after IR procedure to not delay procedur
Reason For Exam: PE, hx DVT
05/11/25 18:05
Fentanyl Citrate/Pf [Sublimaze] 100 mcg .ROUTE .STK-MED ONE
Midazolam HCl [Versed] 2 mg .ROUTE .STK-MED ONE
05/11/25 18:10
Lidocaine 2% [Xylocaine 2% Mdv] 20 ml .ROUTE .STK-MED ONE
05/11/25 19:38
0.9% Sodium Chloride 1000 ml [Nss] 1,000 ml IV 80 mls/hr
Acetaminophen [Tylenol] 1,000 mg PO Q6HPRN PRN mild pain
Albuterol [ProAIR HFA INHALER] 2 puff INH R Q4HPRN PRN sob
Dextrose 50%-Water [Dextrose 50% Syringe] 12.5 grams IV [id number] PRN
Glucagon [GlucaGen] 1 mg IM PRN PRN
VANCOMYCIN Pharmacy to Dose [VANCOCIN Pharmacy to Dose] 1 each Pharmacy To Prepare [Call Pharmacy To Prepare] 0 ml IV PER PROTOCOL
oxycodone 20 mg PO Q8HPRN PRN
05/11/25 19:38
Consult Physician [PHYSICIAN CONSULT] Routine
Consulting Provider: Riky Banuelos
Was physician already notified: Yes
VTE Contraindication Routine
VTE Mechanical Device Contraindication: Suspected DVT
Pharmocologic Contraindication: Bleeding
Activity As Directed
Activity Level: As Tolerated
Bedside Glucose Monitoring As Directed
Frequency: AC&HS
Additional Instructions:: Change to q6h if pt on TPN, tube feeding or not eating
Vital Signs As Directed
Frequency: Per unit guidelines
05/11/25 20:00
Guaifenesin [Mucinex] 600 mg PO BID
Ipratropium/Albuterol Sulfate [Duoneb] 3 ml INH R QID
Morphine Sulfate Extended Rel. [Ms Contin (Extended Release)] 15 mg PO Q12H
fluticasone propion-salmeterol [Advair Diskus] 1 inh INH R BID
05/11/25 22:00
Lactate Level [Lactic Acid] Q6H
Atorvastatin [Lipitor] 80 mg PO HS
insulin glargine [Lantus Solostar U-100 Insulin] 6 unit SC HS
05/12/25 00:00
Cefepime HCl [Maxipime] 2,000 mg IV Q12H
05/12/25 04:00
Lactate Level [Lactic Acid] Q6H
05/12/25 06:00
Complete Blood Count/No Diff IN AM
Comprehensive Metabolic Panel IN AM
Glycohemoglobin (HgbA1c) IN AM
Magnesium IN AM
05/12/25 07:30
Insulin Aspart Corrective Low [Novolog Flexpen-Low Resistance] See Protocol SC AC
05/12/25 22:00
Polyethylene Glycol Powder [Miralax] 17 grams PO HS
Abnormal Lab Results
05/11/25
14:29
WBC 21.3 H 10^3/uL
(4.8-10.8)
RBC 3.19 L 10^6/uL
(4.20-5.40)
Hgb 9.7 L g/dL
(12.0-16.0)
Hct 31.0 L %
(37.0-47.0)
MCHC 31.3 L g/dL
(33.0-37.0)
RDW 17.3 H %
(11.5-14.5)
Abs Immat Gran (auto) 0.4 H 10^3/uL
(0-0.05)
Absolute Neuts (auto) 16.4 H 10^3/uL
(1.4-6.5)
Absolute Monos (auto) 1.5 H 10^3/uL
(0.1-0.6)
Immature Gran % 1.9 H %
(0-0.5)
Neutrophils % 76.7 H %
(42.2-75.2)
Lymphocytes % 12.5 L %
(20.5-51.1)
PT 20.7 H Sec
(11.4-14.6)
BUN 23 H mg/dl
(7-17)
Creatinine 1.2 H mg/dL
(0.6-1.0)
Glucose 162 H mg/dl
(70-99)
Lactic Acid 3.6 H mmol/L
(0.7-2.0)
05/11/25 14:29
05/11/25 14:29
White blood count is elevated at 21, hemoglobin is stable compared to prior labs from 05/07/2025. Kidney function preserved.
Vital Signs
Initial and Last Documented VS:
Initial Vital Signs
Pulse Resp BP Pulse Ox
93 20 86/62 93
05/11/25 14:16 05/11/25 14:16 05/11/25 14:16 05/11/25 14:16
Last Documented Vital Signs
Pulse Resp BP Pulse Ox
88 24 117/72 100
05/11/25 19:30 05/11/25 19:30 05/11/25 19:30 05/11/25 19:30
Procedures
Central Line
Right Femoral:
Indication for procedure:: Hypotension, poor peripheral access
Procedure completed by: myself
Consent form signed: No
If no, reason: Emergency procedure
Anesthesia: 1% Lidocaine
Central line lumen: triple
Number of attempts: 1
Central line complications: none
Sterile dressing applied?: Yes
Additional information:
Patient tolerated procedure well
MDM/Problems Addressed
Differential Diagnosis Includes:
Differential diagnosis to consider but not limited to dehydration, pulmonary embolism, pleural effusion, pneumonia, ACS along with other etiologies considered
Chronic conditions affecting care:
Recent pneumonectomy, poor mobility, lower extremity DVT, on long-term anticoagulation, hypertension, hyperlipidemia, chronic pain
*Radiology
Radiology exam reviewed: radiology read reviewed (I reviewed CT results with Dr. Kc, radiology-patient has pulmonary embolism along with large complex right-sided pleural effusion with mediastinal shift)
*Pulse Oximetry
SaO2: 93
Nasal Cannula flow liters per minute: 4
Patient hypoxic: yes
*EKG
Interpreted by ED Provider?: Yes (I independently viewed and interpreted twelve-lead EKG showing normal sinus rhythm, rate 93, normal axis, normal intervals, no ST elevation, this is a normal EKG similar to prior from 04/26/2025)
*Taker Out Interpretation
Rate: normal (I independently viewed and interpreted rhythm strip showing normal sinus rhythm, no ectopy)
*Critical Care Note
Total Time (30-74mins, 75-104mins- exclusive of procedures): See note
comment:
Critical care statement: A total of 65 minutes of critical care time was provided for this patient. This includes management of unstable vital signs, evaluation of the patient at bedside, reviewing the patient's pertinent medical records, discussion
with consultants, review of old EKGs and review of pertinent medical records. This time with separate from time utilized to perform the aforementioned documented procedures
Update Note
Update Note:
Patient placed on high flow nasal cannula with improvement to 97%, however she could not tolerate the feeling of compression on her face. Patient was transition to nonrebreather which she tolerated better. Initial morphine had no effect. She was
given 1 mg of Dilaudid with significant improvement in her discomforts. Blood pressure stable in the 80s. Small IV fluid bolus ordered. I briefly spoke with cardiology with regards to patient presentation in order to help facilitate getting stat
echo performed-tach is currently at bedside (1529). Nurse was unable to obtain satisfactory peripheral IV, patient gave verbal consent for femoral line placement which she tolerated placement in the right groin without issue.
I independently viewed and interpreted portable chest x-ray showing significant worsening right pleural effusion and now new left pleural effusion.
I updated patient's son with regards to critical nature of patient's presentation. He agrees with plan at current and affirms that patient is full code, which patient had expressed to me earlier in encounter.
White blood count elevated at 21,000, blood cultures have already been sent. Broad-spectrum antibiotics added. I reviewed full patient presentation and critical nature of illness with the hospitalist who accepts patient for admission.
9294: I reviewed CT results with Dr. Kc, radiology, including concerning new PE and large pleural effusion with mediastinal shift. I then called a PERT alert. I reviewed patient presentation with pulmonary critical care and CT surgery.
Patient's original procedure had been performed by Dr. Banuelos, I also relayed patient information to Dr. Banuelos. I updated the hospitalist. Dr Banuelos would recommend IR consultation for thoracentesis. IR consulted.
ED Attending Note
-
Portions of this chart may have been created with voice recognition software.� Occasional wrong word or��sound alike� substitutions may have occurred due to the inherent limitations of voice recognition software.
Discharge Plan
Departure
Patient Disposition: Admit
Date of Disposition: 05/11/25
Time of Disposition: 15:25
Presentation/result/management discussed w/ accepting MD/DO: Hospitalist
Discharge Problem:
Pleural effusion, Acute hypotension, Acute hypoxemic respiratory failure, Chest pain
Interventions
Interventions:
*General Assessment Last Done: 05/11/25 14:16
ED- Cardiac Assessment Last Done: 05/11/25 15:06
ED- Pulmonary Assessment Last Done: 05/11/25 15:06
[2025-05-11] MEDS: MORPHINE SULFATE 2 MG IV (14:54)
[2025-05-11] MEDS: DILAUDID 1 MG IV (14:57)
[2025-05-11] MEDS: ZOFRAN 4 MG IV (14:58)
[2025-05-11 15:02] LABS: Hematocrit 31.0 % (37.0-47.0); Hemoglobin 9.7 g/dL (12.0-16.0); Mean Corp Hgb Conc. 31.3 g/dL (33.0-37.0); Mean Corpuscular Volume 97.2 fL (81.0-99.0); Nucleated Red Blood Cells % 0 %; Platelet Count 386 10^3/uL (130-400); Red Cell Dist. Width 17.3 % (11.5-14.5)
[2025-05-11] MEDS: NSS 250 IV ×2 (15:04→21:56)
[2025-05-11 15:09] LABS: INR 1.72; PT 20.7 Sec (11.4-14.6)
[2025-05-11 15:10] LABS: APTT 30.8 Sec (23.4-35.0)
[2025-05-11 15:23] LABS: ALT (SGPT) 16 U/L (0-35); AST (SGOT) 34 U/L (14-36); Albumin 3.6 g/dl (3.5-5.0); Alkaline Phosphatase 39 U/L (38-126); Blood Urea Nitrogen 23 mg/dl (7-17); Calcium 9.2 mg/dl (8.4-10.2); Carbon Dioxide 28 mmol/L (22-30); Chloride 99 mmol/L (98-107); Estimated Creatinine Clearance 49 ml/min; Glucose 162 mg/dl (70-99); Potassium 4.7 mmol/L (3.5-5.1); Sodium 135 mmol/L (135-145); Total Protein 6.7 g/dl (6.3-8.2); eGFR 48.70
[2025-05-11 15:30] LABS: Troponin I 0.014 ng/ml
[2025-05-11] MEDS: MAXIPIME 1000 MG IV (16:04)
[2025-05-11] MEDS: VANCOCIN 540 MG IV (16:05)
[2025-05-11 16:15] LABS: COVID-19 Antigen Negative (Negative)
--- NOTE | 2025-05-11 17:07 | HPS.HSE ---
Addendum entered and electronically signed by Marlena Rasheed MD 05/11/25 17:57:
bedside TTE completed:
SUMMARY
1. Normal left ventricular size and function.
2. Ejection fraction is 55-60% by visual assessment.
3. Upper normal right ventricle size and normal function. Mild right ventricular hypertrophy.
4. Aortic sclerosis without stenosis.
5. Mild tricuspid regurgitation. Estimated pulmonary artery pressure of 29 mmHg assuming a right atrial pressure of 8 mmHg.
6. Thickened pericardium with trivial effusion.
7. Compared to a prior transthoracic echocardiogram study from 04/25/25 The PA pressure has decreased from 52 to to 29 mmHg.
Addendum entered and electronically signed by Marlena Rasheed MD 05/11/25 17:56:
Sepsis with evidence of end organ damage, elevated lactate
-IV antibiotics as below
-hypotension responsive to fluids
Original Note:
Family Physician
-
Family Physician: Darek Black
Chief Complaint
-
shortness of breath
History of Present Illness
Ms. Eula Zazueta is a 69 yo woman with hx stage 1B lung cancer status post left upper lobe resection 2022, recent right lower lobe lung cancer status post wedge resection 04/15/25, essential HTN, NIDDM, brain aneurysm s/p clipping, CVA, recent
admission 04/25-05/07 for pneumonia and HHNK.
Patient was at [facility]. Over past several days she has felt shortness of breath, some dizziness. Last night she had vomiting and increased trouble breathing. + chest discomfort.
No lower extremity swelling. No measured fevers/chills.
Medical History
Past Medical History
Past Medical History: Reports Other
Additional Past Medical History:
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
Past Surgical History: Reports Other
Additional Past Surgical History:
Brain aneurysm clip, left upper lung resection, Wedge resection of the right right lower lobe tumor and mediastinal lymph node dissection, back surgery
Social History
Tobacco: Former Smoker
Alcohol: None
Drug: None
Personal:
Living: With Family
Family History
Family History: Not pertinent and Other (mom dementia, Father HTN)
Allergies / Home Medications
Allergies reflects when Allergies were last updated in [employer].
Home Medications with original date entered in [employer]
Allergy/Medication List:
Allergies
Allergy/AdvReac Type Severity Reaction Status Date / Time
aspirin Allergy Nausea / Verified 05/11/25 14:16
Vomiting
erythromycin base Allergy Nausea / Verified 05/11/25 14:16
Vomiting
NSAIDS (Non-Steroidal Allergy Nausea / Verified 05/11/25 14:16
Anti-Inflamma Vomiting
Salicylates * Allergy Nausea / Verified 05/11/25 14:16
Vomiting
Home Medications
acetaminophen 500 mg tablet (Tylenol Extra Strength) 1,000 mg PO Q6HPRN PRN mild pain 12/28/24
albuterol sulfate 90 mcg/actuation aerosol inhaler (Ventolin HFA) 2 puff inhalation R Q4HPRN PRN sob 12/28/24
carvedilol 6.25 mg tablet 6.25 mg PO Q12H Blood Pressure 12/28/24
ezetimibe 10 mg tablet 10 mg PO DAILY@1200 High Cholesterol 12/28/24
ergocalciferol (vitamin D2) 1,250 mcg (50,000 unit) capsule (Vitamin D2) 1,250 mcg PO RODRIGUEZ Supplement 04/08/25
guaifenesin 600 mg tablet, extended release 12 hr (Mucinex) 600 mg PO BID Congestion 04/08/25
fluticasone 250 mcg-salmeterol 50 mcg/dose blistr powdr for inhalation (Advair Diskus) 1 inh inhalation R BID Lung/Breathing Issues 04/15/25
apixaban 5 mg tablet (Eliquis) 5 mg PO BID Blood Clot Prevention/Tx 05/11/25
atorvastatin 80 mg tablet (Lipitor) 80 mg PO HS High Cholesterol 05/11/25
bisacodyl 10 mg rectal suppository (Dulcolax (bisacodyl)) 10 mg [place] DAILYPRN PRN if no bm aftr mom 05/11/25
docusate sodium 100 mg capsule (Colace) 100 mg PO BID Constipation 05/11/25
fenofibrate micronized 200 mg capsule 200 mg PO DAILY High Cholesterol 05/11/25
furosemide 80 mg tablet 80 mg PO DAILY Fluid Retention/Swelling 05/11/25
insulin aspart U-100 100 unit/mL (3 mL) subcutaneous pen 6 unit SC AC Diabetes 05/11/25
insulin glargine 100 unit/mL (3 mL) subcutaneous pen (Lantus Solostar U-100 Insulin) 20 unit SC HS Diabetes 05/11/25
ipratropium 0.5 mg-albuterol 3 mg (2.5 mg base)/3 mL nebulization soln 3 ml inhalation R QID Lung/Breathing Issues 05/11/25
lidocaine 5 % topical patch (Lidoderm) 1 patch topical DAILY left lower back 05/11/25
magnesium hydroxide 400 mg/5 mL oral suspension (Milk of Magnesia) 2,400 mg PO [id number] PRN constipation 05/11/25
morphine 15 mg tablet,extended release 15 mg PO Q12H severe Pain 05/11/25
oxycodone 20 mg tablet 20 mg PO Q8HPRN PRN severe pains 05/11/25
polyethylene glycol 3350 17 gram oral powder packet 17 g PO HS Constipation 05/11/25
sodium phosphates 19 gram-7 gram/118 mL enema (Fleet Enema) 118 ml [place] DAILYPRN PRN if no bm aftr dulcolax 05/11/25
zinc oxide 20 % topical ointment 1 applic topical BID sacral 05/11/25
Review of Systems
-
History Source: Patient
A 12 point ROS was completed and negative except as noted: Yes
Physical Exam
Vital Signs
Vital Signs
Pulse Resp BP Pulse Ox
90 25 112/76 99
05/11/25 16:49 05/11/25 16:49 05/11/25 16:49 05/11/25 16:49
Physical Exam
General: Other (mildly tachypneic with NRBC on, conversant )
HEENT: PERRLA
Respiratory: Decreased Breath Sounds
Cardiac: S1/S2 and Regular Rhythm
GI: Soft and Non Tender
Musculoskeletal: No Edema
Skin: Warm and Dry; No Rash
Neuro: AO x 3
Psych: Calm
Laboratory Results
-
05/11/25 14:29
05/11/25 14:29
Laboratory Results
PT 20.7 Sec (11.4-14.6) H 05/11/25 14:29
INR 1.72 05/11/25 14:29
APTT 30.8 Sec (23.4-35.0) 05/11/25 14:29
Lactic Acid 3.6 mmol/L (0.7-2.0) H 05/11/25 14:29
Total Bilirubin 1.3 mg/dl (0.2-1.3) 05/11/25 14:29
AST 34 U/L (14-36) 05/11/25 14:29
ALT 16 U/L (0-35) 05/11/25 14:29
Alkaline Phosphatase 39 U/L (38-126) 05/11/25 14:29
Troponin I 0.014 ng/ml 05/11/25 14:29
Data Reviewed
-
Diagnostic Radiology: Report Reviewed by me
Lab Data: Labs Reviewed by me
Impression/Plan
-
Ms. Eula Zazueta is a 69 yo woman with hx stage 1B lung cancer status post left upper lobe resection 2022, recent right lower lobe lung cancer status post wedge resection 04/15/25, essential HTN, NIDDM, brain aneurysm s/p clipping, CVA, recent
admission 04/25-05/07 for pneumonia and HHNK.
Triage VS: P 93, RR 20, BP 86/62, SpO2 93%
LABS: WBC 21.3, Hg 9.7, PLT 386, Na 135, K+ 4.7, CO2 28, BUN 23, Cr 1.2, Glucose 162, Lactate 3.6, liver enzymes WNL, BNP 319
CXR
IMPRESSION:
Significant increased opacification throughout the right hemithorax which at least in part could represent PROGRESSION OF HEALING PNEUMOTHORAX seen on recent prior Chest radiograph and Chest CT.
CHEST CT
IMPRESSION: Comparing to CT examination of May 04, 2025, significant interval increase in hemorrhage into the posterior aspect of the right lung. Significant interval increase in right pleural effusion, with loculated components anteriorly and
in the subpulmonic region. Resultant mass effect with depression of the right hemidiaphragm. There is also mediastinal shift toward the left.
Examination is positive for bilateral pulmonary embolism. CT findings equivocal for increased right heart strain.
MAR: IV Vancomycin/Cefepime/ IV Dilaudid, IV morphine, IVF, IV Zofran
Large right Hemorrhagic Pleural effusion resulting in mediastinal shift
-case discussed with Dr. Banuelos, Pulmonary and IR and plan is for IR-guided chest tube this evening
-pleural fluid studies ordered
-admit to ICU post chest tube placement
-concern raised for possible empyema - follow up pleural fluid studies, continue IV antibiotics - IV Vanc/Cefepime
-follow up blood cultures
-Influenza/Covid negative
-IVF
-hold [employer] Eliquis
Bilateral pulmonary embolism
-contraindication to anticoagulation in setting of hemothorax
-hold [employer] Eliquis
-IR consult for IVC filter, may be this evening
-US LE - if negative for DVT can order SCD's
Chronic pain, opiate dependence
-continue [employer] Morphine and Oxycodone PRN
Lung cancer s/p recent resection 04/15/25
-Dr. Banuelos aware of admission, will place formal consult
IDDM
-patient is on Lantus 20 units qhs at home
-given NPO, will give 6 units this evening
-ISS low
-resume pre-meal insulin when eating
Essential HTN
-hold [employer] Coreg given hypotension in the ER
HLD - [employer] Statin
Heart Failure preserved EF
-hold [employer] Lasix
DVT PPx - contraindicated until rule out DVT
FULL CODE
Total Critical Care Time 60 minutes. I was immediately available to the patient and staff. I personally examined, reviewed labs, diagnostic images/reports, interpretations, treatment plans, discussed patient care with other providers and family
or caregivers (if patient is unable to make decisions), entered orders as appropriate and documented the medical record.
[2025-05-11] MEDS: DUONEB 3 ML INH (19:52)
[2025-05-11] MEDS: ADVAIR HFA 115/21 MCG INHALER 2 PUFF INH (20:05)
--- NOTE | 2025-05-11 20:05 | PHA.VAN.IN ---
Assessment
- Assessment
Renal Function: Appears similar to baseline
Concomitant Antimicrobials: cefepime
Plan
- Plan
Initial / Loading Dose: vanc 2000mg administered @ 1605
Maintenance Regimen: dosing by level
Monitoring: random level 05/12 0600
MRSA Screen: Ordered per protocol
Pharmacokinetics Vancomycin I
- -
Patient Age: 69
Patient Sex: Female
Vancomycin Day #: 1
Indication: Pulmonary/Respiratory
Requesting Provider: Dr. Rasheed
Pertinent Antimicrobial Allergies:
no pertinent antimicrobial allergies
Height / Weight:
Height 5 ft 2 in
Actual Weight 101 kg
Pertinent Past Medical History: BMI~40, stage 1B lung CA s/p resection, CKD
- Vital Signs / Lab Results
Pulse Resp BP Pulse Ox
89 31 117/72 99
05/11/25 20:02 05/11/25 20:02 05/11/25 19:30 05/11/25 20:02
Lab Results - Hematology
05/11/25
14:29
WBC 21.3 H
Lab Results - Chemistry
05/11/25
14:29
BUN 23 H
Creatinine 1.2 H
Estimated Creat Clear 49
Albumin 3.6
05/11/25
14:29
Lactic Acid 3.6 H
Microbiology Results
05/11/25 15:30 Influenza Types A & B (JAYSHREE) - Final
Nasal Swab Negative for Influenza A & B, NAAT
Negative results must be combined with clinical observations
and patient history.
Nucleic Acid Amplification test (NAAT)performed on the
[employer] platform.
[2025-05-11] MEDS: NSS 1000 IV (20:12)
[2025-05-11 20:14] LABS: Magnesium 1.9 mg/dl (1.6-2.3)
[2025-05-11] MEDS: MUCINEX 600 MG PO (20:17)
[2025-05-11] MEDS: MS CONTIN (EXTENDED RELEASE) 15 MG PO (20:17)
[2025-05-11] MEDS: LIPITOR 80 MG PO (20:17)
[2025-05-11 20:34] LABS: Glucose - Point of Care 177 mg/dl (70-99)
[2025-05-11] MEDS: TYLENOL 1000 MG PO (21:18)
[2025-05-11] MEDS: LANTUS 0.06 UNITS SC (21:57)
[2025-05-11 22:05] LABS: Glucose - Point of Care 159 mg/dl (70-99)
[2025-05-11 22:27] LABS: Hematocrit 25.0 % (37.0-47.0); Hemoglobin 7.5 g/dL (12.0-16.0)
--- NOTE | 2025-05-11 22:42 | PTCARENOTE ---
Received patient after start of shift, ED transferred patient from IRAD to ICU. Patient aao x3, able to make needs known, confirms chronic pain to back, some discomfort to right flank chest tube site, tolerable on admission. NSR on the monitor with
occasional PVCs. Positive pulses, no edema noted. Lung sound cta throughout left side, right side diminished/absent to RLL and RML. Chest tube site dressing c/d/i, no crepitus noted. Right side chest tube draining bloody fluid, 750ml in canister
upon arrival to ICU. Patient confirms breathing is, 'much easier'. Occasional dry, non productive cough noted on admission. Pox 97% on 10L NRB. RT to bedside at time of arrival. BS active, patient confirms LBM 11/12 in the am, and that she usually
has a bm every few days and takes Senna prn constipation r/to pain medication regimen. Purewick in place for urination. Patient noted to have diffuse dark purple, yellow'geovany bruising to right chest/breast area and lateral aspect of chest. Stage 2
noted to patients sacrum, no drainage noted. Wound cleaned and foam sacral dressing applied. Patient with triple lumen right femoral line, all lines patent. NSS at 80ml/hr running through right femoral line.
Patients sbp in the 80's when asleep. Discussed with Ryan اعللي. H/H ordered along with 250ml NS bolus. Labs drawn and sent, bolus administered per orders. Hgb decreased to 7.5, DISTILLERY MILLER updated.
Call vidal within reach, will continue to monitor patient closely.
[2025-05-11] MEDS: MAXIPIME 2000 MG IV (23:27)
[2025-05-11] MEDS: STERILE WATER FOR INJECTION 10 ML IV (23:27)
[2025-05-11] MEDS: NOVOLOG FLEXPEN-LOW RESISTANCE 1 UNITS SC (23:30)
[2025-05-11 23:31] LABS: Glucose - Point of Care 150 mg/dl (70-99)
[2025-05-11] MEDS: ROXICODONE 20 MG PO (23:40)
[2025-05-12] VITALS (57 sets, daily range): BP systolic 75–129; BP diastolic 43–97; BMI 37.6
--- NOTE | 2025-05-12 00:06 | PTCARENOTE ---
Patients bp remains low post bolus. Notified ZOHRA Strange, 1u PRBC ordered. Consents obtained. Will administer 1u PRBC as able. Will continue to monitor patient closely.
--- NOTE | 2025-05-12 00:48 | PTCARENOTE ---
Received 1u PRBCs from blood bank, administering at this time. Patient tolerating well thus far. Will continue to monitor closely.
--- NOTE | 2025-05-12 02:48 | PTCARENOTE ---
Patient with zero UO since admission. Purewick in place, education provided to patient regarding difference between how the fam catheter functions, and the Purewick. Understanding verbalized. Patient states she does not feel like she has to
urinate. Bladder scanned for 152ml.
1u PRBC's almost complete, BP's stabilized. Call vidal within reach, will continue to monitor patient closely.
[2025-05-12] MEDS: TYLENOL 1000 MG PO ×3 (05:22→23:53)
[2025-05-12] MEDS: NOVOLOG FLEXPEN-LOW RESISTANCE SC ×2 (05:31→17:26)
[2025-05-12 05:33] LABS: Glucose - Point of Care 125 mg/dl (70-99)
[2025-05-12] MEDS: DILAUDID 0.5 MG IV (05:46)
[2025-05-12 06:10] LABS: ALT (SGPT) 14 U/L (0-35); AST (SGOT) 19 U/L (14-36); Albumin 2.7 g/dl (3.5-5.0); Alkaline Phosphatase 40 U/L (38-126); Blood Urea Nitrogen 28 mg/dl (7-17); Calcium 8.3 mg/dl (8.4-10.2); Carbon Dioxide 31 mmol/L (22-30); Chloride 101 mmol/L (98-107); Estimated Creatinine Clearance 37 ml/min; Glucose 131 mg/dl (70-99); Magnesium 1.8 mg/dl (1.6-2.3); Potassium 4.7 mmol/L (3.5-5.1); Sodium 134 mmol/L (135-145); Total Protein 5.4 g/dl (6.3-8.2); eGFR 37.26
[2025-05-12] MEDS: DUONEB 3 ML INH ×3 (08:06→19:43)
[2025-05-12] MEDS: ADVAIR HFA 115/21 MCG INHALER 2 PUFF INH ×2 (08:07→19:43)
--- NOTE | 2025-05-12 08:33 | CON.INTV ---
Consultation
Consultation Request
Date/Time Consultation Requested: 05/11/2025 19:39
Date/Time Consultation Performed: 05/12/2025 8:33
Requesting Provider: Marlena Rasheed MD
Performing Provider: Aldair Guallpa MD
Medical History
-
Chief Complaint: Shortness of breath
History of Present Illness:
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
brain aneurysm s/o clipping, CVA.
She has had numerous hospitalizations since her uncomplicated right lower lobe wedge resection on 04/17. Notably, I saw her personally while she briefly was in the ICU from during her last hospitalization for HHS. At that time she had been started
on an insulin drip that was transitioned to subcutaneous insulin. She was also found to have pneumonia for which she received antibiotics. She was also found to have bilateral lower extremity DVT for which she was started on anticoagulation with
Eliquis. CT of the chest showed right hemothorax, which was believed to be chronic rathe than active. She was discharged to a senior care facility for rehab. In totally she was here from 04/25-05/07.
She represented to the hospital on 05/11/2025 with shortness of breath and dizziness. On the night of 05/10 she coughed up thick, white mucus and noted an immediate increase in difficulty breathing accompanied by chest discomfort. Chest X-ray showed
significant increased opacification through the right hemithorax which could represent progression of healing. Chest CT showed significant interval increase in hemorrhage into the posterior aspect of the right lung. Significant interval increase int
he right pleural effusion with located components anteriorly and in the subpulmonic region. Resultant mass effect with depression of the right hemidiaphragm with mediastinal shift. Also positive for bilateral pulmonary embolism. An IR-guided chest
tube was placed that same day
Today she feels significantly improved since the day prior. Her pain and shortness of breath is significantly lessened, though she does have chronic pain at baseline. She does also report a large hematoma of her right chest wall extending into her
breast which was present during her prior admission. She notes at that time it was very hot to the touch. It now feels hard instead. She reports pain over the entire site especially when taking deep breaths.
Past Medical History
Past Medical History: Asthma, Cancer (Lung), HTN, Hypercholesterolemia, IDDM and Other
Past Surgical History: Other (Brain aneurysm clipping, left lung upper lobe resection (2022), right lobe wedge resection (04/15/2025)))
Social History
Tobacco: Former Smoker
Alcohol: None
Drug: None
Personal:
Living: With Family (Though presents from Rehab)
Employment: Retired (3 weeks ago)
Family History
Family History: Other (Mom dementia, dad HNT)
Allergies / Home Medications
Allergies
Allergy/AdvReac Type Severity Reaction Status Date / Time
aspirin Allergy Nausea / Verified 05/11/25 14:16
Vomiting
erythromycin base Allergy Nausea / Verified 05/11/25 14:16
Vomiting
NSAIDS (Non-Steroidal Allergy Nausea / Verified 05/11/25 14:16
Anti-Inflamma Vomiting
Salicylates * Allergy Nausea / Verified 05/11/25 14:16
Vomiting
Home Medications
�Medication �Instructions �Recorded �Confirmed �Last Taken �Type
acetaminophen 500 mg tablet 1,000 mg PO Q6HPRN PRN mild pain 12/28/24 05/11/25 05/09/25 History
(Tylenol Extra Strength)
albuterol sulfate 90 mcg/actuation 2 puff inhalation R Q4HPRN PRN sob 12/28/24 05/11/25 04/15/25 06:00 History
aerosol inhaler (Ventolin HFA)
carvedilol 6.25 mg tablet 6.25 mg PO Q12H Blood Pressure 12/28/24 05/11/25 05/11/25 History
ezetimibe 10 mg tablet 10 mg PO DAILY@1200 High 12/28/24 05/11/25 05/11/25 History
Cholesterol
ergocalciferol (vitamin D2) 1,250 1,250 mcg PO RODRIGUEZ Supplement 04/08/25 05/11/25 05/07/25 History
mcg (50,000 unit) capsule (Vitamin
D2)
guaifenesin 600 mg tablet, 600 mg PO BID Congestion 04/08/25 05/11/25 05/11/25 History
extended release 12 hr (Mucinex)
fluticasone 250 mcg-salmeterol 50 1 inh inhalation R BID 04/15/25 05/11/25 05/11/25 History
mcg/dose blistr powdr for Lung/Breathing Issues
inhalation (Advair Diskus)
apixaban 5 mg tablet (Eliquis) 5 mg PO BID Blood Clot 05/11/25 05/11/25 05/11/25 History
Prevention/Tx
atorvastatin 80 mg tablet (Lipitor) 80 mg PO HS High Cholesterol 05/11/25 05/11/25 05/10/25 History
bisacodyl 10 mg rectal suppository 10 mg [place] DAILYPRN PRN if no bm 05/11/25 05/11/25 Unknown History
(Dulcolax (bisacodyl)) aftr mom
docusate sodium 100 mg capsule 100 mg PO BID Constipation 05/11/25 05/11/25 05/11/25 History
(Colace)
fenofibrate micronized 200 mg 200 mg PO DAILY High Cholesterol 05/11/25 05/11/25 05/11/25 History
capsule
furosemide 80 mg tablet 80 mg PO DAILY Fluid 05/11/25 05/11/25 05/11/25 History
Retention/Swelling
insulin aspart U-100 100 unit/mL 6 unit SC AC Diabetes 05/11/25 05/11/25 05/11/25 History
(3 mL) subcutaneous pen
insulin glargine 100 unit/mL (3 20 unit SC HS Diabetes 05/11/25 05/11/25 05/10/25 History
mL) subcutaneous pen (Lantus
Solostar U-100 Insulin)
ipratropium 0.5 mg-albuterol 3 mg 3 ml inhalation R QID 05/11/25 05/11/25 05/11/25 History
(2.5 mg base)/3 mL nebulization Lung/Breathing Issues
soln
lidocaine 5 % topical patch 1 patch topical DAILY left lower 05/11/25 05/11/25 05/11/25 History
(Lidoderm) back
magnesium hydroxide 400 mg/5 mL 2,400 mg PO [id number] PRN 05/11/25 05/11/25 05/10/25 History
oral suspension (Milk of Magnesia) constipation
morphine 15 mg tablet,extended 15 mg PO Q12H severe Pain 05/11/25 05/11/25 05/11/25 History
release
oxycodone 20 mg tablet 20 mg PO Q8HPRN PRN severe pains 05/11/25 05/11/25 05/11/25 History
polyethylene glycol 3350 17 gram 17 g PO HS Constipation 05/11/25 05/11/25 05/10/25 History
oral powder packet
sodium phosphates 19 gram-7 118 ml [place] DAILYPRN PRN if no bm 05/11/25 05/11/25 Unknown History
gram/118 mL enema (Fleet Enema) aftr dulcolax
zinc oxide 20 % topical ointment 1 applic topical BID sacral 05/11/25 05/11/25 05/11/25 History
Review of Systems
-
History Source: Patient
Constitutional: Fever (Denies), Sleep Disturbance (Sleeps poorly chronically) and Chills (Chronic)
EENT: No Symptoms
Respiratory: Cough and Trouble Breathing
Cardiac: Chest Pain
Abdomen/GI: Abdominal Pain (Denies), Nausea (Denies) and Vomiting (Denies - See HPI)
Musculoskeletal: Joint Pain (Chronic)
Neuro: Headache (Chronic)
Hematologic/Lymphatic: Bruising (Right hematoma of chest wall extending into breast, present since prior admission)
Vitals / Labs / Diagnostic Testing
Vital Signs
Temp Pulse Resp BP Pulse Ox
98.4 F 71 18 92/52 99
05/12/25 07:08 05/12/25 08:09 05/12/25 08:09 05/12/25 06:30 05/12/25 08:09
Lab Data
05/12/25 05:30
Laboratory Results
05/11/25
14:29
PT 20.7 H
INR 1.72
APTT 30.8
Microbiology
05/11/25 15:30 Nasal Swab Influenza Types A & B (JAYSHREE) - Final
Negative for Influenza A & B, NAAT
Negative results must be combined with clinical observations
and patient history.
Nucleic Acid Amplification test (NAAT)performed on the
[employer] platform.
Diagnostic Testing:
Physical Exam
-
HEENT: Normocephalic
Cardiovascular: S1/S2 and Regular Rhythm
Respiratory: Wheeze (Left sided), Other (Rhonchi and decreased breath sounds on the right lung compared to left. There is a large right bruise of the chest wall outlined in marker that extends medially over the right breast tissue. It is dark but
not any warmer than the surrounding skin. The area along the breast is hard) and Other (8L Midflow supplemental O2)
Neurology: Awake, Alert and Oriented
Skin: Warm, Dry and Good Color
General: Comfortable and Other (Right chest tube draining bloody liquid at bedside)
Assessment
-
Assessment:
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
from 04/25-05/07 who represents to the hospital with shortness of breath and chest pain found to have right hemithorax and bilateral PE on CT Scan.
Plan:
Acute hypoxic Respiratory Failure
Right Hemothorax
Bilateral Pulmonary Embolism
Acute Blood Loss Anemia
Lung Cancer s/p recent resection on 04/15/2025
History of Recent DVT
Patient re-presented to the hospital after recent admission from 04/25-05/07 with shortness of breath
WBC 21.3 on admission, Lactic acid 3.6, Hemoglobin 9.7
Chest X-ray: Significant increased opacification throughout the right hemithorax which at least in part could represent PROGRESSION OF HEALING PNEUMOTHORAX seen on recent prior Chest radiograph and Chest CT.
CT Chest: Comparing to CT examination of May 04, 2025, significant interval increase in hemorrhage into the posterior aspect of the right lung. Significant interval increase in right pleural effusion, with loculated components anteriorly and in
the subpulmonic region. Resultant mass effect with depression of the right hemidiaphragm. There is also mediastinal shift toward the left. Examination is positive for bilateral pulmonary embolism. CT findings equivocal for increased right heart
strain.
Echocardiogram: Normal left ventricular size and function. Ejection fraction is 55-60% by visual assessment. Upper normal right ventricle size and normal function. Mild right ventricular hypertrophy. Aortic sclerosis without stenosis. Mild
tricuspid regurgitation. Estimated pulmonary artery pressure of 29 mmHg assuming a right atrial pressure of 8 mmHg. Thickened pericardium with trivial effusion. Compared to a prior transthoracic echocardiogram study from 04/25/25 The PA pressure has
decreased from 52 to to 29 mmHg.
S/p chest tube placement in the ED
Hemoglobin today has decreased to 7.5 (7.8 on repeat) from blood loss from hemothorax. 1 unit pRBCs ordered overnight, a second unit has been ordered this AM.
Currently on antibiotics per primary team for possible pneumonia in the setting of the above. Currently on Cefepime and Vancomycin
Continue scheduled and PRN inhalers
Continue IV fluids. Currently on NSS
Hold Eliquis
Pending blood cultures, sputum cultures, Cytology
Discussions have been held about IVC filter, though patient has not yet agreed to this intervention
Dr. Banuelos has been made aware of this admission yesterday with formal consult in place. He plans to see her today
US of lower extremities order to evaluate for further clots
Continue supportive care in the interim
Chronic Pain Syndrome
Patient�s pain
Continue Tylenol, oxycodone PRN for pain. Continue scheduled morphine
Continue scheduled Miralax. Watch bowel movements cautiously due to concern for opioid-induced constipation, consider escalation of bowel regimen if needed
Essential Hypertension
Home Coreg on hold
Home Furosemide on hold
Type 2 Diabetes Mellitus
Resume Insulin Glargine 6 units this evening. Would not recommend completely holding her home insulin due to prior admission for [facility].
[2025-05-12] MEDS: MUCINEX 600 MG PO ×2 (08:36→20:50)
[2025-05-12] MEDS: MS CONTIN (EXTENDED RELEASE) 15 MG PO ×2 (08:36→20:50)
[2025-05-12] MEDS: ROXICODONE 20 MG PO ×2 (08:39→16:45)
--- NOTE | 2025-05-12 08:42 | PHA.VAN.FU ---
Vancomycin Assessment / Plan
- Assessment
Renal Function: Stable
In the past 24 hrs, patient has been: Afebrile
Concomitant Antimicrobials: cefepime
- Assessment - Therapeutic Drug Monitoring
Random Level: 21.6 - drawn ~13.5H after 2g loading dose
- Dosing Plan
Dosing by Level: Hold off on dosing today
- Monitoring Plan
Random Level: 05/13 0600
- Follow Up
Pharmacy will continue to follow.
Vancomycin Follow UP
- -
Patient Age: 69
Patient Sex: Female
Vancomycin Day #: 2
Indication: Pulmonary/Respiratory
Requesting Provider: Dr. Rasheed
Pertinent Antimicrobial Allergies:
erythromycin - N/V
Height / Weight:
Height 5 ft 2 in
Actual Weight 93.2 kg
Pertinent Past Medical History: BMI~40, stage 1B lung CA s/p resection
- Vital Signs / Lab Results
Temp Pulse Resp BP Pulse Ox
98.4 F 71 18 92/52 99
05/12/25 07:08 05/12/25 08:09 05/12/25 08:09 05/12/25 06:30 05/12/25 08:09
Lab Results - Hematology
05/11/25
14:29
WBC 21.3 H
Lab Results - Chemistry
05/11/25 05/12/25
14:29 05:30
BUN 23 H 28 H
Creatinine 1.2 H 1.5 H
Estimated Creat Clear 49 37
Albumin 3.6 2.7 L
05/11/25 05/11/25 05/11/25
14:29 16:19 21:09
Lactic Acid 3.6 H Cancelled 1.3
05/12/25
04:00
Lactic Acid Cancelled
Microbiology Results
05/11/25 15:30 Influenza Types A & B (JAYSHREE) - Final
Nasal Swab Negative for Influenza A & B, NAAT
Negative results must be combined with clinical observations
and patient history.
Nucleic Acid Amplification test (NAAT)performed on the
[employer] platform.
Therapeutic Drug Monitoring
Random Vancomycin 21.6 ug/ml 05/12/25 05:30
[2025-05-12 08:44] LABS: Hematocrit 26.0 % (37.0-47.0); Hemoglobin 7.8 g/dL (12.0-16.0); Mean Corp Hgb Conc. 30.0 g/dL (33.0-37.0); Mean Corpuscular Volume 98.1 fL (81.0-99.0); Platelet Count 221 10^3/uL (130-400); Red Cell Dist. Width 17.1 % (11.5-14.5)
--- NOTE | 2025-05-12 08:59 | PTCARENOTE ---
Chest tube intact draining bloody fluid, noted crepitus at site. +tidaling. Dressing clean/dry. Reporting 10/10 pain this morning; Pt NPO for IVC filter placement today, Pt states that she is in too much pain for procedure today. Schedule MS
Contin and PRN oxy given for 10/10 pain. AAO x 3, makes needs known; VSS; 95% on 10L MFNC, Exp wheeze throughout. Will continue to monitor and assess.
[2025-05-12] MEDS: NSS 1000 IV ×2 (10:01→20:49)
--- NOTE | 2025-05-12 10:35 | W.PN.HOSP.TC ---
Today's Communication/Plan
-
See PN
Assessment / Plan
Assessment / Plan
69yo F with PMHx of anxiety, COPD, DM, chronic back pain, CKD stage 3b, Hx of CVA, lung CA s/p wedge resection in on 04/15/25 with hemothorax complications afterwards, DVT and pulmonary embolism on ELiquis, HFpEF, was sent to rehab 5 days prior
to admission and developed worsening dyspnea with R chest pain and hypoxia, in ED found significat R sided hemothorax with possible pneumonia s/p chest tube on 05/11/25.
A/P
#Acute hypoxic respiratory failure 2/2 R sided hemothorax with mediastinal shift most likely 2/2 Eliquis postOP 2/2 lung CA
Hold Elqiuis
chest tube
pain resolved with depresurizing R lung
Pulmonary consult
Chest surgery cosnsult
Follow Hgb, transfuse as needed to keep Hgb >8
#Recent Acute DVT and PE
patient unsure if she agreeable to IVC filter - continue conversation
Medically indicated since will need Eliquis to be held
normal RV function onTTE on 05/11/25
#Hypotension
IVF, transfuse PRBC
follow BP trend
#Chronic HFpEF
#EssentiaL HTN
not in exacerbation
Hold lasix and BP meds
#COPD not in exacerbation
#Possible pneumonia, most liekly HCAP
Cefepime/Flagyl
Sputum Cx
cont bronchodilators
#Chronic back pain 2/2 DJD s/p Sx
cont home regimen
CKD stage 3b
Cr stable 1.4-1.5
follow Cr
#DM type 2 with nephropathy
Accuchecks, Insulin SS, hold bolus while NPO
DM diet when ready
#2 cm low-density lesion in the superior right lobe the liver
hemangioma as per radiologist
DVT ppx SCDs
Full code
I ahve spent at least 79min reviewign chart, test results, communication with consultants and providing direct patient care
Anticipated Discharge: > 48 hours
Subjective/Interval History
-
Date of Service: May 12, 2025
Objective Data
-
Labs:
Laboratory Results
05/12/25
05:30
WBC 11.1 H
Hgb 7.8 L
Hct 26.0 L
Plt Count 221 D
Sodium 134 L
Potassium 4.7
Chloride 101
Carbon Dioxide 31 H
BUN 28 H
Creatinine 1.5 H
Glucose 131 H
Calcium 8.3 L
Total Bilirubin 1.0
AST 19
ALT 14
Alkaline Phosphatase 40
Vital Signs:
Vital Signs
Temp Pulse Resp BP Pulse Ox
98.4 F 71 18 92/52 95
05/12/25 07:08 05/12/25 08:09 05/12/25 08:09 05/12/25 06:30 05/12/25 09:38
I&O
05/11/25 05/12/25 05/13/25
06:59 06:59 06:59
Intake Total 1630 / 1740 270 / 270
Output Total 400 / 400
Balance 1230 / 1340 270 / 270
Review of Systems
-
History Source: Patient
All other systems: Reviewed and negative
Physical Exam
-
General: No Apparent Distress and Obese
HEENT: Normocephalic
Respiratory: Wheezes (L)
Cardiac: Regular Rhythm
GI: Soft, Nontender and Nondistended
Genito-urinary: No Costovertebral Tender
Musculoskeletal: No Clubbing, No Cyanosis and No Edema
Neuro: Awake, Alert, Oriented and AO x 3
Psych: Calm
[2025-05-12 11:01] LABS: Hepatitis C Antibody Negative (Negative)
[2025-05-12 11:45] LABS: Glucose - Point of Care 169 mg/dl (70-99)
--- NOTE | 2025-05-12 12:14 | PTCARENOTE ---
Pt unable to urinate, bladderscanned for 460 and straight cath performed for 600ml of clear yellow urine. Bloody drainage from chest tube, dry dressing at insertion site. Noted crepitus at site as well. 1 unit pRBC's ordered and initiated via R
femoral central line. Received call from [facility] for IVC filter procedure - report given. Will continue to monitor and assess.
[2025-05-12] MEDS: MAXIPIME 2000 MG IV ×2 (12:40→23:54)
[2025-05-12] MEDS: STERILE WATER FOR INJECTION 10 ML IV ×2 (12:40→23:53)
[2025-05-12] MEDS: NOVOLOG FLEXPEN-LOW RESISTANCE 1 UNITS SC (12:41)
--- NOTE | 2025-05-12 13:00 | PN.CDI ---
CDI
- -
CDI:
Physician Documentation Request
Admit Date: 05/11/25 18:22
Dear Doctor Alejandro,
Patient admitted with sepsis.
05/11 Nursing skin assessment, 'Stage 2 left medial buttock pressure injury, POA.'
Physician documentation of the type and location of wounds is required for compliant documentation. Based on the above clinical findings and your assessment, please provide the following in your progress note:
Type (etiology) of ulcer/wound:
- Pressure (decubitus) ulcer
- Other
- Unable to determine
For a pressure ulcer, please also include the stage* of the ulcer:
- Stage 1 - Skin intact, non-blanchable redness
- Stage 2 - Partial thickness loss of dermis, includes intact or open blister
- Stage 3 - Full thickness tissue not including bone, tendon or muscle
- Stage 4 - Full thickness tissue loss, including exposed bone, tendon or muscle
- Unstageable - Full thickness loss in which the base of the ulcer is covered by slough (yellow, sahni, glass, green or brown) and/or eschar (sahni, brown or black) in the wound bed.
- Unable to determine
Use of terms such as suspected, likely, concern for, or probable (associated with a specific diagnosis that is being evaluated, monitored, or treated as if it exists) are acceptable and can be coded in the inpatient setting, when documented at the
time of discharge.
Thank you,
Delmi CALZADA,RN,CCDS
CDI Specialist
Available via [employer] text
Please use your independent medical judgment in providing your response.
*Source: National Pressure Ulcer Advisory Panel (NPUAP)
--- NOTE | 2025-05-12 14:20 | PTCARENOTE ---
Pt brought to [facility] for IVC filter placement; 1 unit of pRBC's infusing into R femoral central line - [place] sheet provided to IR nurse.
[2025-05-12 14:36] LABS: Body Fluid Second Tech US
--- NOTE | 2025-05-12 15:42 | CM ---
Addendum entered by Adi Coy 05/12/25 15:48:
Patient states no in home services.
Original Note:
Initial assessment completed with patient who lives with her in a 2 story plus basement home with B/B on 2nd, 1/2 bath on , 2 steps to enter. [employer] patient was independent in ADL's and ambulation with RW, drives. Has a RW and hurri cane.
No HC-POA. No VA benefits. No psychiatric hospitalizations. PCP is Dr. Irving Pagan. Pharmacy is [facility] on [address] in [place]. Discharge POC: TBD. Was discharged to [facility] for STR on 05/07/25. Then readmitted to .
[2025-05-12] MEDS: DUONEB INH (15:49)
--- NOTE | 2025-05-12 16:15 | PTCARENOTE ---
Returned from [facility] - IVC filter placed without issue. Pt tolerated procedure. Unit of pRBC's completed. VSS; Pt AAO x 3
[2025-05-12 17:24] LABS: Glucose - Point of Care 148 mg/dl (70-99)
[2025-05-12] MEDS: NOVOLOG FLEXPEN 6 UNITS SC (17:26)
[2025-05-12] MEDS: MIRALAX PO ×2 (20:50→20:53)
[2025-05-12] MEDS: COLACE 100 MG PO (20:50)
[2025-05-12] MEDS: LIPITOR 80 MG PO (20:50)
[2025-05-12 21:15] LABS: Glucose - Point of Care 175 mg/dl (70-99)
--- NOTE | 2025-05-12 21:36 | PTCARENOTE ---
on assessment pt AAOx3, anxious and states having pain, pt then became SOB, respiratory at bedside, neb given, pt repositioned in bed and pain meds given, pt states feeling 'a lot better', SR on the monitor, expiratory wheezing noted, 7-10 L
midflow, + cough, R chest tube in place and attached to wall suction per orders, purwick in place, large R chest/breast hematoma noted and MDs are aware, R fem triple lumen, no complaints at this time, call vidal in reach
[2025-05-13] VITALS (30 sets, daily range): BP systolic 100–147; BP diastolic 45–81; BMI 38.1
--- NOTE | 2025-05-13 | PTCARENOTE ---
pt appears to be resting comfortably in bed, pt states 10/10 pain, PRN meds given see WALTER, call vidal in reach
[2025-05-13] MEDS: ROXICODONE 20 MG PO ×2 (00:30→07:31)
[2025-05-13 03:26] LABS: Hematocrit 22.6 % (37.0-47.0); Hemoglobin 7.2 g/dL (12.0-16.0); Mean Corp Hgb Conc. 31.9 g/dL (33.0-37.0); Mean Corpuscular Volume 92.6 fL (81.0-99.0); Platelet Count 207 10^3/uL (130-400); Red Cell Dist. Width 18.0 % (11.5-14.5)
[2025-05-13 03:37] LABS: Blood Urea Nitrogen 26 mg/dl (7-17); Calcium 8.2 mg/dl (8.4-10.2); Carbon Dioxide 29 mmol/L (22-30); Chloride 104 mmol/L (98-107); Estimated Creatinine Clearance 43 ml/min; Glucose 122 mg/dl (70-99); Magnesium 1.7 mg/dl (1.6-2.3); Potassium 4.2 mmol/L (3.5-5.1); Sodium 135 mmol/L (135-145); eGFR 44.24
--- NOTE | 2025-05-13 03:53 | PTCARENOTE ---
no changes from prior assessment, call vidal in reach
[2025-05-13] MEDS: ZOFRAN 4 MG IV (05:21)
--- NOTE | 2025-05-13 06:38 | CON.SURG ---
Surgical Consultation
-
She is a 69-year-old woman who underwent a minimally invasive wedge resection for Stage IA right lower lobe lung cancer on 04/15/2025. She was discharged home on 04/17/25. Despite involving her pain management doctor after surgery, she struggled
with pain control due to her chronic back pain, which required a significant narcotic regimen. On 04/25/25, she was readmitted with bilateral lower extremity DVT and hypoxemia. She was started on anticoagulation therapy. Later, she developed
noticeable ecchymosis involving her right breast, thought to be old blood draining from her right chest since her hemoglobin remains stable with stable vital signs. Therefore, her anticoagulation therapy was maintained. She was discharged to a
nursing home facility on 05/07/25. On 05/11/25, she was readmitted with acute hypotension. The subsequent workup showed increasing right pleural effusion with hemoglobin of 7.5, requiring 2 units of blood. A chest tube was placed and drained over
one liter of bloody fluid. She had an IVC filter placed on 05/12/2025. A repeat chest CT scan from today showed a significant persistent right hemothorax. She continues to report inadequate pain control. Her past medical history, surgical history,
allergies, and medications have not changed since her last visit.
She had decreased breath sounds in her right chest. She also had ecchymosis involving her right breast and right chest wall.
A/P: right hemothorax
This is most likely caused by bleeding from the raw surface due to anticoagulation therapy. Her anticoagulation therapy has been stopped, and an IVC filter was placed. Given the persistent right hemothorax despite a right chest tube, she would
benefit from right thoracoscopic hematoma evacuation. The nature and purpose of the procedure, along with the risks involved, potential complications, and side effects, were fully explained. She has expressed her desire to proceed with surgery. I
will schedule her surgery over the weekend.
[2025-05-13] MEDS: MS CONTIN (EXTENDED RELEASE) 15 MG PO (07:31)
[2025-05-13] MEDS: MUCINEX 600 MG PO ×2 (07:31→20:52)
[2025-05-13] MEDS: COLACE 100 MG PO ×2 (07:32→20:52)
[2025-05-13] MEDS: DUONEB 3 ML INH ×4 (07:38→20:20)
[2025-05-13] MEDS: ADVAIR HFA 115/21 MCG INHALER 2 PUFF INH ×2 (07:39→20:20)
[2025-05-13 07:49] LABS: Glucose - Point of Care 134 mg/dl (70-99)
[2025-05-13] MEDS: NOVOLOG FLEXPEN SC (07:56)
[2025-05-13] MEDS: LIDOCAINE 4% PATCH 1 PATCH TOPICAL (07:57)
[2025-05-13] MEDS: NOVOLOG FLEXPEN-LOW RESISTANCE SC ×2 (07:57→11:47)
--- NOTE | 2025-05-13 08:08 | W.PN.INTV ---
Today's Communication / Plan
Recommendations
Pain medication dosage adjustments
Recheck hemoglobin this afternoon
Plan for NPO at midnight in preparation for OR tomorrow
STOP IV fluids
Assessment
-
Assessment:
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
from 04/25-05/07 who represents to the hospital with shortness of breath and chest pain found to have right hemithorax and bilateral PE on CT Scan.
Plan:
Acute hypoxic Respiratory Failure
Right Hemothorax
Bilateral Pulmonary Embolism
Acute Blood Loss Anemia
Lung Cancer s/p recent resection on 04/15/2025
History of Recent DVT
Patient re-presented to the hospital after recent admission from 04/25-05/07 with shortness of breath
WBC 21.3 on admission, Lactic acid 3.6, Hemoglobin 9.7
Chest X-ray: Significant increased opacification throughout the right hemithorax which at least in part could represent PROGRESSION OF HEALING PNEUMOTHORAX seen on recent prior Chest radiograph and Chest CT.
CT Chest: Comparing to CT examination of May 04, 2025, significant interval increase in hemorrhage into the posterior aspect of the right lung. Significant interval increase in right pleural effusion, with loculated components anteriorly and in
the subpulmonic region. Resultant mass effect with depression of the right hemidiaphragm. There is also mediastinal shift toward the left. Examination is positive for bilateral pulmonary embolism. CT findings equivocal for increased right heart
strain.
Echocardiogram: Normal left ventricular size and function. Ejection fraction is 55-60% by visual assessment. Upper normal right ventricle size and normal function. Mild right ventricular hypertrophy. Aortic sclerosis without stenosis. Mild
tricuspid regurgitation. Estimated pulmonary artery pressure of 29 mmHg assuming a right atrial pressure of 8 mmHg. Thickened pericardium with trivial effusion. Compared to a prior transthoracic echocardiogram study from 04/25/25 The PA pressure has
decreased from 52 to to 29 mmHg.
US Lower Extremities 05/12: No evidence of DVT from the common femoral through the upper calf veins on either side.
CT Chest 05/13: Persistent large heterogeneous right pleural effusion with known hemorrhagic products. Mildly improved. Improved mediastinal shift to the left. Postsurgical change. New right-sided chest tube Stable changes of the right breast
probable post procedural change. New from 03/09/2025. Too small to characterize hypodense thyroid lesion likely a benign nodule. Stable from 2009 suggesting it is benign.
S/p chest tube placement in the ED
S/p 2 units pRBCs thus far with third being transfused this AM
S/p IVC filter placed on 05/12
Hemoglobin today has decreased to 7.2. Recheck hemoglobin this afternoon after 3rd unit pRBCs
Currently on antibiotics per primary team for possible pneumonia in the setting of the above. Currently on Cefepime and Vancomycin.
Continue scheduled and PRN inhalers
Stop IV fluids.
Hold Eliquis
Pending blood cultures, sputum cultures, Cytology
Surgery is following, will appreciate their insight into her case. Per Dr. Banuelos's note on 05/12: Plan for right thoracoscopic hematoma evacuation this weekend. Would recommend antibiotic adjustments made based off of intra-operative cultures
Continue supportive care in the interim
Chronic Pain Syndrome
Patient�s pain
Continue Tylenol
Pain medication regimen adjusted today. Start 0.5mg dilaudid Q4h PRN for moderate pain, 1mg q4H PRN for severe pain. Increased morphine to 30mg Q12 scheduled.
Continue scheduled Miralax, scheduled decussate, PRN Bisacodyl.
Add senna
Watch bowel movements cautiously due to concern for opioid-induced constipation, consider escalation of bowel regimen if needed
Essential Hypertension
Home Coreg on hold
Home Furosemide on hold
Type 2 Diabetes Mellitus
Continue Novolog 6, Corrective insulin
Will give 6 units Lantus now, 10 units tonight in preparation for surgery tomorrow
Would not recommend holding her home insulin due to prior admission for [facility].
Subjective Dataa
Subjective Data
Date of Service:
Date of Service: May 13, 2025
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
Subjective:
Patient was awake when I arrived. She reports feeling very tired as she did not sleep well overnight. She states she feels exactly the same as she had yesterday. She reports ongoing shortness of breath with associated pain in her ribs with deep
breaths, which worsens if she tries to move too much. She continues to experience chronic pain throughout her body.
Review of Systems
General: Fever (Denies) and Chills (Denies)
Cardiopulmonary: Dyspnea and Chest Pain
Objective Data
Data Reviewed
Vital Signs / I&O / Oxygen:
Vital Signs
Temp Pulse Resp BP Pulse Ox
98.3 F 74 24 142/70 96
05/13/25 07:50 05/13/25 07:50 05/13/25 07:50 05/13/25 07:50 05/13/25 07:50
Intake and Output
05/12/25 05/13/25 05/14/25
06:59 06:59 06:59
Intake Total 1630 / 1740 3062.5 / 3062.5 0 / 0
Output Total 400 / 400 1020 / 1020
Balance 1230 / 1340 2042.5 / 2042.5 0 / 0
SaO2 96
Nasal Cannula flow liters per 8
minute
Physical Exam
HEENT: Normocephalic and Anicteric
Cardiovascular: S1-S2 and Regular Rhythm
Respiratory: Non-Labored Respirations, Other (Diminished breath sounds on the right) and Other (Supplemental O2 in place)
Neurology: Awake, Alert and Oriented
Skin: Warm, Dry and Good Color
Labs/Micro/Reports
Lab Data
05/13/25 03:01
05/13/25 03:01
Microbiology
05/12/25 13:10 Pleural Fluid Fungal Culture - Preliminary
Culture in progress.
Positive cultures are reported as soon as detected.
Final report to follow in four to five weeks.
05/12/25 13:10 Pleural Fluid Gram Stain - Preliminary
05/11/25 15:30 Blood/Venous Blood Culture - Preliminary
No Growth in 24 hours- Final report to follow
05/11/25 14:29 Blood/Venous Blood Culture - Preliminary
No Growth in 24 hours- Final report to follow
05/11/25 21:09 Nose Nasal Screen MRSA (PCR) - Final
MRSA not detected - performed by PCR methodology.
05/11/25 15:30 Nasal Swab Influenza Types A & B (JAYSHREE) - Final
Negative for Influenza A & B, NAAT
Negative results must be combined with clinical observations
and patient history.
Nucleic Acid Amplification test (NAAT)performed on the
[employer] platform.
[2025-05-13] MEDS: VANCOCIN 275 MG IV (08:33)
--- NOTE | 2025-05-13 08:34 | PHA.VAN.FU ---
Vancomycin Assessment / Plan
- Assessment
Renal Function: SCR Decreasing
WBC's are: Trending Down
In the past 24 hrs, patient has been: Afebrile
Concomitant Antimicrobials: cefepime 2g Q12H
- Assessment - Therapeutic Drug Monitoring
Random Level: 12.5 on 05.13 @ 0301 am
- Dosing Plan
Dosing by Level: Re-dose today (vancomycin 1250 mg x 1)
- Monitoring Plan
Random Level: 15 @ 0600
MRSA Screen: Ordered per protocol (MRSA not detected)
- Follow Up
Pharmacy will continue to follow.
Vancomycin Follow UP
- -
Patient Age: 69
Patient Sex: Female
Vancomycin Day #: 3
Indication: Pulmonary/Respiratory
Requesting Provider: Dr. Rasheed
Pertinent Antimicrobial Allergies:
erythromycin - N/V
Height / Weight:
Height 5 ft 2 in
Actual Weight 94.5 kg
Pertinent Past Medical History: BMI~40, stage 1B lung CA s/p resection
- Vital Signs / Lab Results
Temp Pulse Resp BP Pulse Ox
98.2 F 74 24 142/70 96
05/13/25 08:00 05/13/25 07:50 05/13/25 07:50 05/13/25 07:50 05/13/25 07:50
Lab Results - Hematology
05/11/25 05/12/25 05/13/25
14:29 05:30 03:01
WBC 21.3 H 11.1 H 10.9 H
Lab Results - Chemistry
05/11/25 05/12/25 05/13/25
14:29 05:30 03:01
BUN 23 H 28 H 26 H
Creatinine 1.2 H 1.5 H 1.3 H
Estimated Creat Clear 49 37 43
Albumin 3.6 2.7 L
05/11/25 05/11/25 05/11/25
14:29 16:19 21:09
Lactic Acid 3.6 H Cancelled 1.3
05/12/25
04:00
Lactic Acid Cancelled
Lab Results - Urine
05/12/25
06:00
Urine Nitrite (Reflex) Cancelled
Leukocyte Esterase Rfl Cancelled
Microbiology Results
05/12/25 13:10 Fungal Culture - Preliminary
Pleural Fluid Culture in progress.
Positive cultures are reported as soon as detected.
Final report to follow in four to five weeks.
05/12/25 13:10 Gram Stain - Preliminary
Pleural Fluid
05/11/25 15:30 Blood Culture - Preliminary
Blood/Venous No Growth in 24 hours- Final report to follow
05/11/25 14:29 Blood Culture - Preliminary
Blood/Venous No Growth in 24 hours- Final report to follow
05/11/25 21:09 Nasal Screen MRSA (PCR) - Final
Nose MRSA not detected - performed by PCR methodology.
05/11/25 15:30 Influenza Types A & B (JAYSHREE) - Final
Nasal Swab Negative for Influenza A & B, NAAT
Negative results must be combined with clinical observations
and patient history.
Nucleic Acid Amplification test (NAAT)performed on the
[employer] platform.
Therapeutic Drug Monitoring
Random Vancomycin 12.5 ug/ml 05/13/25 03:01
--- NOTE | 2025-05-13 08:44 | PTCARENOTE ---
report received, assessments per work list. anxious and c/o severe pain. frequent weak moist nonproductive cough. oxygen wean per work list. chest tube canister changed without issue. right chest tube draining dark bloody fluid. right sided bruise
extending to breast and back not exceeding markings. right femoral triple line in place with good blood returns. unit PRBC initiated and transfusing without signs reaction. pure wick in place, liset urine output. reviewed plan, patient taking sips
clears. call vidal in reach. safe environment maintained
--- NOTE | 2025-05-13 11:18 | W.PN.HOSP.TC ---
Today's Communication/Plan
-
replete potassium, magnesium and provide 1 unit PRBC
labs in AM
cont Abx until cultures finalized
cont chest tube mgmt by pulm
Assessment / Plan
Assessment / Plan
69yo F with PMHx of anxiety, COPD, DM, chronic back pain, CKD stage 3b, Hx of CVA, lung CA s/p wedge resection in on 04/15/25 with hemothorax complications afterwards, DVT and pulmonary embolism on ELiquis, HFpEF, was sent to rehab 5 days prior
to admission and developed worsening dyspnea with R chest pain and hypoxia, in ED found significat R sided hemothorax with possible pneumonia s/p chest tube on 05/11/25, IVC filter on 05/12/25 and pending hematoma evacuation by
A/P
#Acute hypoxic respiratory failure 2/2 R sided hemothorax with mediastinal shift most likely 2/2 Eliquis postOP 2/2 lung CA
Hold Elqiuis
chest tube
pain resolved with depressurizing R lung
Pulmonary consult
Chest surgery consult: plan for hematoma evacvuation
Follow Hgb, transfuse as needed to keep Hgb >8
#Recent Acute DVT and PE
s/p IVC filter on 05/12/25
LE US w/o DVT
Medically indicated since will need Eliquis to be held
normal RV function on TTE on 05/11/25
#Hypotension
IVF, transfuse PRBC to keep Hgb close to 8
follow BP trend
#Chronic HFpEF
#EssentiaL HTN
not in exacerbation
Hold lasix and BP meds
#COPD not in exacerbation
#Possible pneumonia, most likely HCAP
Cefepime/Flagyl
Sputum Cx, pleural fluid Cx pending
cont bronchodilators
#Chronic back pain 2/2 DJD s/p Sx
cont home regimen
CKD stage 3b
Cr stable 1.4-1.5
follow Cr
#DM type 2 with nephropathy
Accuchecks, Insulin SS, hold bolus while NPO
DM diet when ready
#2 cm low-density lesion in the superior right lobe the liver
hemangioma as per radiologist
DVT ppx SCDs
Full code
Jay leyva spent at least 52min reviewign chart, test results, communication with consultants and providing direct patient care
Anticipated Discharge: > 48 hours
Subjective/Interval History
-
Date of Service: May 13, 2025
Objective Data
-
Labs:
Laboratory Results
05/13/25
03:01
WBC 10.9 H
Hgb 7.2 L
Hct 22.6 L
Plt Count 207
Sodium 135
Potassium 4.2
Chloride 104
Carbon Dioxide 29
BUN 26 H
Creatinine 1.3 H
Glucose 122 H
Calcium 8.2 L
Vital Signs:
Vital Signs
Temp Pulse Resp BP Pulse Ox
98.2 F 73 21 113/53 97
05/13/25 10:20 05/13/25 10:30 05/13/25 10:30 05/13/25 10:24 05/13/25 10:30
I&O
05/12/25 05/13/25 05/14/25
06:59 06:59 06:59
Intake Total 1630 / 1740 3062.5 / 3142.5 1090 / 1090
Output Total 400 / 400 1020 / 1020 600 / 600
Balance 1230 / 1340 2042.5 / 2122.5 490 / 490
Review of Systems
-
History Source: Patient
All other systems: Reviewed and negative
Physical Exam
-
General: No Apparent Distress
HEENT: Normocephalic
Respiratory: Crackles (R)
Cardiac: Regular Rhythm
Neuro: Awake, Alert, Oriented and AO x 3
Psych: Calm
[2025-05-13 11:47] LABS: Glucose - Point of Care 129 mg/dl (70-99)
[2025-05-13] MEDS: OFIRMEV 100 IV ×2 (11:57→17:05)
[2025-05-13] MEDS: ZETIA 10 MG PO (11:57)
[2025-05-13] MEDS: LANTUS 0.06 UNITS SC (12:01)
[2025-05-13] MEDS: DILAUDID 1 MG IV ×2 (12:01→17:04)
[2025-05-13] MEDS: NSS IV (12:12)
[2025-05-13] MEDS: NOVOLOG FLEXPEN 3 UNITS SC (12:36)
[2025-05-13] MEDS: STERILE WATER FOR INJECTION IV ×2 (12:40→22:42)
--- NOTE | 2025-05-13 12:48 | PTCARENOTE ---
patient reassessed. pain management regime adjustments per MAR. patient more comfortable post dilaudid. coughing and expectorating brown bloody tinged sputum. oxygen per work list
[2025-05-13] MEDS: MAXIPIME 1000 MG IV ×2 (13:20→22:23)
[2025-05-13] MEDS: STERILE WATER FOR INJECTION 10 ML IV ×3 (13:20→22:24)
[2025-05-13 13:44] LABS: Hematocrit 29.2 % (37.0-47.0); Hemoglobin 9.0 g/dL (12.0-16.0); Mean Corp Hgb Conc. 30.8 g/dL (33.0-37.0); Mean Corpuscular Volume 96.1 fL (81.0-99.0); Platelet Count 184 10^3/uL (130-400); Red Cell Dist. Width 18.9 % (11.5-14.5)
--- NOTE | 2025-05-13 14:08 | CM ---
F/U: Patient still in the ICU and there is a plan for the O.R tomorrow- right thoracoscopic hematoma evacuation. Case Management to continue to follow for discharge needs.
--- NOTE | 2025-05-13 15:21 | PTCARENOTE ---
patient reassessed. passing flatus, no stool. reviewed importance of not refusing her bowel regime while on narcotics. understanding verbalized. VAT team at bedside to obtain PIV access and remove triple line
--- NOTE | 2025-05-13 17:47 | PTCARENOTE ---
right fem site dry and intact. medicated with dilaudid per prn order. ct draining dark bloody drainage. repositioned. mid flow @4liters
[2025-05-13 17:51] LABS: Glucose - Point of Care 165 mg/dl (70-99)
[2025-05-13] MEDS: NOVOLOG FLEXPEN 6 UNITS SC (17:52)
[2025-05-13] MEDS: NOVOLOG FLEXPEN-LOW RESISTANCE 1 UNITS SC (17:52)
--- NOTE | 2025-05-13 20:30 | PTCARENOTE ---
Pt is Aox3, anxious at times, VSS, NSR on monitor, c/o pain in her right side due to chest tube. Scheduled pain medication given. Chest tube is draining dark bloody fluid, no crepitus, or air leaks. Patients on4L midflow O2 remains >95%.
[2025-05-13] MEDS: REMOVE LIDOCAINE PATCH 1 PATCH REMOVE (20:52)
[2025-05-13] MEDS: MS CONTIN (EXTENDED RELEASE) 30 MG PO (20:52)
[2025-05-13] MEDS: SENOKOT 8.6 MG PO (20:52)
[2025-05-13 22:14] LABS: Glucose - Point of Care 147 mg/dl (70-99)
[2025-05-13] MEDS: LIPITOR 80 MG PO (22:23)
[2025-05-13] MEDS: LANTUS 0.1 UNITS SC (22:23)
[2025-05-13] MEDS: MIRALAX 17 GRAMS PO (22:23)
[2025-05-14] VITALS (47 sets, daily range): BP systolic 92–163; BP diastolic 55–83; BMI 37.7
[2025-05-14] MEDS: DILAUDID 1 MG IV ×2 (00:04→05:01)
[2025-05-14] MEDS: OFIRMEV 100 IV ×2 (00:05→06:05)
[2025-05-14 05:02] LABS: Hematocrit 29.9 % (37.0-47.0); Hemoglobin 9.0 g/dL (12.0-16.0); Mean Corp Hgb Conc. 30.1 g/dL (33.0-37.0); Mean Corpuscular Volume 97.1 fL (81.0-99.0); Nucleated Red Blood Cells % 0 %; Platelet Count 205 10^3/uL (130-400); Red Cell Dist. Width 18.9 % (11.5-14.5)
--- NOTE | 2025-05-14 05:39 | PTCARENOTE ---
Pt slept a decent amount after taking pain medication. Q2 turns from left side to back, patient is reluctant to reposition due to pain, needs alot of encouragement. UOP-950ml, chest tube output 25ml. Pt received CHG bath this morning. New #20 placed
in left AC.
[2025-05-14 05:44] LABS: ALT (SGPT) 11 U/L (0-35); AST (SGOT) 16 U/L (14-36); Albumin 2.7 g/dl (3.5-5.0); Alkaline Phosphatase 44 U/L (38-126); Blood Urea Nitrogen 17 mg/dl (7-17); Calcium 8.7 mg/dl (8.4-10.2); Carbon Dioxide 28 mmol/L (22-30); Chloride 108 mmol/L (98-107); Estimated Creatinine Clearance 62 ml/min; Glucose 108 mg/dl (70-99); Magnesium 1.8 mg/dl (1.6-2.3); Potassium 4.5 mmol/L (3.5-5.1); Sodium 137 mmol/L (135-145); Total Protein 5.7 g/dl (6.3-8.2); eGFR > 60.00
[2025-05-14 06:05] LABS: Glucose - Point of Care 114 mg/dl (70-99)
[2025-05-14] MEDS: MAXIPIME 1000 MG IV ×3 (06:06→22:38)
[2025-05-14] MEDS: STERILE WATER FOR INJECTION 10 ML IV ×3 (06:06→22:39)
[2025-05-14] MEDS: ADVAIR HFA 115/21 MCG INHALER 2 PUFF INH (07:31)
[2025-05-14] MEDS: DUONEB 3 ML INH ×4 (07:31→19:44)
--- NOTE | 2025-05-14 07:50 | PTCARENOTE ---
Assumed care of pt at 0715 following shift report. Pt awake and resting quietly in bed. O2 @ 4l/min w/ POx 94%. Tachypneic w/ RR upper 20's to low 30's but no acute distress noted. Occasional moist, hacking non-productive cough. Rt CT noted to -20cm
wall suction. [place] fully inflated. No air leak or tidaling noted. Dressing to insertion site c/d/i. Physical assessment completed as documented. Pt remains NPO for planned OR today. No running IVs. Call vidal w/in pt reach and safe
environment maintained.
[2025-05-14] MEDS: NOVOLOG FLEXPEN-LOW RESISTANCE SC (08:00)
[2025-05-14] MEDS: NOVOLOG FLEXPEN SC ×3 (08:00→16:04)
--- NOTE | 2025-05-14 08:04 | W.PN.INTV ---
Today's Communication / Plan
Recommendations
Mechanical ventilation
Repeat CT chest in the next 24-48 hours, as per Dr. Banuelos
Monitor right-sided large bore chest tube output
Pain control
Lightly sedate with goal RASS 0 to -2
Follow-up cultures from chest tube
Goal BG 140�180
Postoperative management as per thoracic oncology
Assessment
-
69-year-old female with a past medical history of left upper lobe stage Ib lung cancer s/p resection (2022), right lower lobe squamous cell carcinoma s/p wedge resection on 04/15/2025, DM type II, hypertension, brain aneurysm s/p clipping, bilateral
distal DVT (diagnosed 04/25/2025) and history of CVA who presented with shortness of breath. Patient was initially hypotensive to 86/62, saturating 93% on 4 L/min, breathing at 20 breaths/min with pulse rate 93. She has remained afebrile. Initial
labs showed leukocytosis to 21.3, Hb 9.7, absolute eosinophil count: 300, lactate 3.6, and COVID-19 negative. Patient found to have a large right-sided pleural effusion with mediastinal shifting from right to left as well as hemorrhage in the right
posterior lung. In the ER she was given 250 cc bolus of NS 0.9%, cefepime, vancomycin, Zofran, Dilaudid, and morphine, and a PERT alert was called. Case discussed amongst myself in addition to IR and thoracic oncology, Dr. Banuelos, and the PE is not
the main pathology causing her shortness of breath + hypoxia. The main issue is her large right-sided pleural effusion which is causing mediastinal shift. Chest tube recommended and IR inserted a 20 Indian Thal-Quick chest tube with initially
almost no return with clots being pulled through the tube initially with manual aspiration performed. Because of this, the catheter was exchanged for a 16 Indian pigtail catheter with the pigtail maneuvered in an effort to disrupt some of the
loculations of the complex effusion, and this allowed improved drainage with a more inferior position of the catheter. There were no immediate complications and the patient was transferred to the ICU for further care with environmental protection officer/pulmonary
service consulted for additional management/recommendations.
Impression:
#Large right-sided pleural effusion with loculated components with mediastinal shift (right to left) s/p chest tube placed by IR on 05/12/2025 (20Fr Thal-Quick chest tube failed to drain fluid and was exchanged for 16 Fr pigtail catheter) now s/p
thoracotomy (POD #0)
#Right-sided pulmonary hemorrhage into pleural space � suspected to be from oozing s/p RLL wedge resection on 04/15/2025
#Acute anemia due to right-sided pulmonary hemorrhage s/p 3 units PRBC since admission
#Acute hypoxic respiratory failure
#Bilateral pulmonary embolism with right heart strain
#Thyroid nodules (stable)
Plan:
- Patient obtained chest tube on day of admission via IR for her large right-sided pleural effusion that is a mixture between serosanguinous fluid and blood products
- Pleural fluid studies were sent on 05/12, and pleural fluid hematocrit was only 2.2 hence ruling out hemothorax. The pleural fluid pH was low at 7.26, with 1104 white blood cells which was monocyte predominant, glucose 63, T protein 5.9, LDH
1398. This is diagnostic of an exudative, complex effusion; she does have multifocal consolidative opacities on the right lung hence this is likely a complex parapneumonic effusion from a right-sided pneumonia; she is also bleeding into her
right-sided pleural space
- Follow-up pleural fluid cultures (NGTD); cytopathology is negative for malignancy and shows blood scattered with lymphocytes, neutrophils and rare mesothelial cells
- I discussed her case with thoracic oncologist, Dr. Banuelos
- Repeat CT chest obtained on 05/13 showing a persistent large heterogeneous right pleural effusion with known hemorrhagic products, although there is mild improvement seen in the amount of fluid in the right hemithorax with improved mediastinal
shift
- Patient went to the OR today, underwent thoracotomy with replacement of her 16 Indian pigtail catheter with a large bore chest tube
- Continue to monitor chest tube output
- CXR postoperatively showed improved aeration in the right mid to lower lung zone
- Continue with suction, currently at -20 cmH2O
- Pain control, which was very difficult after her wedge resection last month and she had followed with a pain management doctor as an outpatient
- Given that the patient has a bilateral PE, we are unable to anticoagulate in the setting of her right sided bloody effusion with blood products seen in the pleural space. Case was discussed with interventional radiology as well as thoracic
oncology, Dr. Banuelos, and it is consensus that patient will need IVC filter, which she obtained on 05/13, which was retrievable. Hopefully she can have the filter removed in 3-6 months after she recovers
- Echo showed LVEF is preserved at 55-6% with upper normal RV size and normal function, with PASP now normal at 29 mmHg from 52 mmHg on last echo on 04/25/2025
- Lower extremity duplex was negative for DVT
- Continue empirically with antibiotics given concern for a complex parapneumonic effusion � continue cefepime; vancomycin DC'd given her MRSA swab was negative
- Follow-up blood cultures x 2 (collected 05/11); of note, she was recently hospitalized here from 04/25 - 05/07/2025 and had received antibiotics at that time with Zithromax, Zosyn, IV vancomycin and cefepime, hence she is at risk of
hospital-acquired infections including Pseudomonas + MRSA
- Continue with mechanical ventilation with daily SAT/SBT if clinically appropriate
- Of note, while patient was waiting for her operation today, she had a nosebleed which was not life-threatening
- Maintain plateau pressure <30 and titrate FiO2 + PEEP to keep SpO2 >90-94%
- Continue aspiration precautions; keep HOB >30-45�
- Continue with Advair HFA 115 mcg + DuoNebs QID
- prn nebulized bronchodilators - not currently bronchospastic
- Oropharyngeal + deep ETT suctioning with subglottic as needed
- Daily CXR + blood gas
- Daily vent adjustments as needed based on blood gas and SaO2
- Low level of sedation with goal RASS as 0 to -2
- Of note, she did have PFTs on 02/22/2025 which showed a mild restrictive lung defect with T% predicted, with no evidence of COPD, and a mildly reduced gas exchange capacity (DLco: 65%)
- She is no longer wheezing as of 05/13 - -> if her wheezing returns then we will consider starting systemic steroids however I am worried that if her right pleural space is infected that steroids may worsen this and delay recovery
- Maintain MAP>65
- Replete electrolytes with K>4, Mg>2
- Maintain euglycemia with goal BG 140-180; HbA1c 8.1 on 04/25/2025
- Trend H/H and transfuse if needed to keep Hb>7-8g/dL; keep plt>50k (given her postoperative status)
- NPO for now; OGT inserted; if patient not extubated by tomorrow then we will start tube feeds
- DVT ppx: SCDs for now (unable to give anticoagulation given the bleeding seen in the patient's right lung)
Patient is mechanically ventilated and requires ICU level of care.
Critical care statement: A total of 42 minutes of critical care time was provided for this patient today. This includes management of unstable vital signs, evaluation of the patient at bedside, reviewing the patient's pertinent medical records
including radiographs, microbiology, laboratory evaluations, and discussion with primary team, consultants, pharmacy, nutrition, physical therapy, case management, charge nurse, critical care nursing, and respiratory therapy.
Subjective Dataa
Subjective Data
Date of Service:
Date of Service: May 14, 2025
Chief Complaint: Income Tax Consultant Follow Up
Subjective:
Patient went to the OR today for right side thoracotomy. Operative note pending. chest tube had 85 cc output in the last 24 hours. Patient returned to the ICU intubated on settings 12/450/5/50% on AC/CMV, with PIP 26 cmH2O, VTe 450 cc and
breathing at 13 breaths/min. Started on propofol currently at 30 mcg/kg/min. Current heart rate is 87, BP 135/72 and saturating 98%.
Review of Systems
General: Unobtainable - Sedation (+ Intubated)
Objective Data
Data Reviewed
Vital Signs / I&O / Oxygen:
Vital Signs
Temp Pulse Resp BP Pulse Ox
98 F 86 24 116/67 94
05/14/25 07:38 05/14/25 07:35 05/14/25 07:35 05/14/25 07:00 05/14/25 07:50
Intake and Output
05/13/25 05/14/25 05/15/25
06:59 06:59 06:59
Intake Total 3062.5 / 3142.5 2330 / 2330
Output Total 1020 / 1020 2435 / 2435
Balance 2042.5 / 2122.5 -105 / -105
SaO2 94
Nasal Cannula flow liters per 4
minute
Physical Exam
General: Respiratory Distress (negative), Comfortable and Chills (negative)
HEENT: Normocephalic, Anicteric and Other (ETT in place)
Cardiovascular: S1-S2, Regular Rhythm and Peripheral Edema (negative)
Respiratory: Wheeze (negative), Rhonchi (negative), ET Tube (Mechanical breath sounds heard bilaterally), Chest Tube (Right-sided chest tube, replaced with large bore in the OR) and Other (Diminished breath sounds on the right)
GI: Soft, Distended (Abdominal obesity), Non Tender and Normal Bowel Sounds
Neurology: Tremors (negative) and Other (Sedated)
Skin: Warm, Dry, Cyanosis (negative) and Jaundice (negative)
Labs/Micro/Reports
Lab Data
05/14/25 04:36
Laboratory Results
05/14/25
10:30
PT Cancelled
INR Cancelled
APTT Cancelled
Microbiology
05/11/25 15:30 Blood/Venous Blood Culture - Preliminary
No Growth in 48 hours- Final report to follow
05/11/25 14:29 Blood/Venous Blood Culture - Preliminary
No Growth in 48 hours- Final report to follow
05/12/25 13:10 Pleural Fluid Body Fluid Culture - Preliminary
No Growth After 18-24 Hours
05/12/25 13:10 Pleural Fluid Gram Stain - Preliminary
05/12/25 13:10 Pleural Fluid Fungal Culture - Preliminary
Culture in progress.
Positive cultures are reported as soon as detected.
Final report to follow in four to five weeks.
05/11/25 21:09 Nose Nasal Screen MRSA (PCR) - Final
MRSA not detected - performed by PCR methodology.
05/11/25 15:30 Nasal Swab Influenza Types A & B (JAYSHREE) - Final
Negative for Influenza A & B, NAAT
Negative results must be combined with clinical observations
and patient history.
Nucleic Acid Amplification test (NAAT)performed on the
[employer] platform.
--- NOTE | 2025-05-14 08:20 | PTCARENOTE ---
Pt transported to OR after transfer report given to 'Callie' MARCELINO. Pt's in room at time of transport. No changes in assessment findings or new complaints received prior to transport.
[2025-05-14] MEDS: LIDOCAINE 4% PATCH TOPICAL (08:30)
[2025-05-14] MEDS: MS CONTIN (EXTENDED RELEASE) PO (08:30)
[2025-05-14] MEDS: MUCINEX PO (08:30)
--- NOTE | 2025-05-14 11:04 | W.PN.HOSP.TC ---
Today's Communication/Plan
-
Hgb stable follow q24h
stop Vanco -MRSA screen neg, cultures remain neg
Assessment / Plan
Assessment / Plan
69yo F with PMHx of anxiety, COPD, DM, chronic back pain, CKD stage 3b, Hx of CVA, lung CA s/p minimally invasive wedge resection for Stage IA right lower lobe lung cancer on 04/15/2025 with hemothorax complications afterwards, DVT and pulmonary
embolism on ELiquis, HFpEF, was sent to rehab 5 days prior to admission and developed worsening dyspnea with R chest pain and hypoxia, in ED found significat R sided hemothorax with possible pneumonia s/p chest tube on 05/11/25, IVC filter on
05/12/25 and pending hematoma evacuation by
A/P
#Acute hypoxic respiratory failure 2/2 R sided hemothorax with mediastinal shift most likely 2/2 Eliquis postOP 2/2 lung CA
Hold Eliquis
chest tube
pain resolved with depressurizing R lung
Pulmonary consult
Chest surgery consult: plan for hematoma evacuation on 05/14/25, remained intubated for lung reinflation postOP
Follow Hgb, transfuse as needed to keep Hgb >8
#Recent Acute DVT and PE
s/p IVC filter on 05/12/25
LE US w/o DVT
Medically indicated since will need Eliquis to be held
normal RV function on TTE on 05/11/25
#Hypotension
IVF, transfuse PRBC to keep Hgb close to 8
follow BP trend
#Chronic HFpEF
#Essential HTN
not in exacerbation
Hold lasix and BP meds
#COPD not in exacerbation
#Possible pneumonia, most likely HCAP
Cefepime
VAnco stopped since MRSA neg
Sputum Cx, pleural fluid Cx pending
cont bronchodilators
#Chronic back pain 2/2 DJD s/p Sx
cont home regimen
#Stage 2 left medial buttock pressure injury, POA
Wound care
#CKD stage 3b
Cr stable 1.4-1.5
follow Cr
#DM type 2 with nephropathy
Accuchecks, Insulin SS, hold bolus while NPO
DM diet when ready
#2 cm low-density lesion in the superior right lobe the liver
hemangioma as per radiologist
DVT ppx SCDs
Full code
I ahve spent at least 52min reviewign chart, test results, communication with consultants and providing direct patient care
Anticipated Discharge: > 48 hours
Subjective/Interval History
-
Date of Service: May 14, 2025
Objective Data
-
Labs:
Laboratory Results
05/14/25 05/14/25 05/14/25
04:36 10:30 10:47
WBC 7.6
Hgb 9.0 L
Hct 29.9 L
Plt Count 205 Cancelled Pending
PT Cancelled Pending
INR Cancelled Pending
APTT Cancelled Pending
Sodium 137
Potassium 4.5
Chloride 108 H
Carbon Dioxide 28
BUN 17
Creatinine 0.9
Glucose 108 H
Calcium 8.7
Total Bilirubin 0.7
AST 16
ALT 11
Alkaline Phosphatase 44
Vital Signs:
Vital Signs
Temp Pulse Resp BP Pulse Ox
98 F 86 24 116/67 94
05/14/25 07:38 05/14/25 07:35 05/14/25 07:35 05/14/25 07:00 05/14/25 07:50
I&O
05/13/25 05/14/25 05/15/25
06:59 06:59 06:59
Intake Total 3062.5 / 3142.5 2330 / 2330
Output Total 1020 / 1020 2435 / 2435
Balance 2041.5 / 2121.5 -105 / -105
Review of Systems
-
Unable to obtain full review of systems at this time due to: Patient Intubation
Physical Exam
-
General: Intubated
Respiratory: Clear to Auscultation
Cardiac: Regular Rhythm
Genito-urinary: Clear Urine and Spicer
Musculoskeletal: No Clubbing, No Cyanosis and No Edema
Neuro: Awake and Alert
Psych: Calm
[2025-05-14] MEDS: DIPRIVAN 100 IV ×2 (11:30→19:21)
[2025-05-14] MEDS: SUBLIMAZE 50 MCG IV ×6 (11:37→23:23)
[2025-05-14 12:15] LABS: Hematocrit 30.3 % (37.0-47.0); Hemoglobin 10.1 g/dL (12.0-16.0); Mean Corp Hgb Conc. 33.3 g/dL (33.0-37.0); Mean Corpuscular Volume 92.9 fL (81.0-99.0); Platelet Count 213 10^3/uL (130-400); Red Cell Dist. Width 18.0 % (11.5-14.5)
[2025-05-14 12:25] LABS: INR 1.23; PT 15.8 Sec (11.4-14.6)
[2025-05-14 12:26] LABS: APTT 29.9 Sec (23.4-35.0)
--- NOTE | 2025-05-14 12:30 | PTCARENOTE ---
Pt returned to Rm [id number] as direct back from OR at 1120. Per Dr Banuelos, pt to remain intubated- Dr Guallpa aware and orders for sedation received. Resp Therapist in room and placed pt on vent per ordered settings. POx 99-100%. ETT mirza placed. Rt
lateral CT in place- dressing c/d/i. No crepitus noted. Placed Pleurovac to -20cm wall suction. No tidaling or air leak noted in chamber. Draining small amounts of dark red. No Bilateral soft wrist restraints placed to protect lines/ tubes. Pt
increasingly restless w/ noted vent dysynchrony. Medicated w/ Fentanyl as SBP in 140's and Propofol gtt started per order. Ordered labs drawn and sent. Pt's and daughter to room- updated, questions answered. Family planning to go home for
now and will call in for updates. OGT placed per order- 50cm at lip. Order placed for xray to confirm placement.
[2025-05-14 12:32] LABS: B.E. -2.8 mmol/L; HCO3 24.4 mmol/L (21-28); O2 Saturation % 97.8 % (94-98); PCO2 52 mmHg (32-35); PO2 80 mmHg (83-108)
[2025-05-14 13:24] LABS: Blood Urea Nitrogen 16 mg/dl (7-17); Calcium 7.6 mg/dl (8.4-10.2); Carbon Dioxide 25 mmol/L (22-30); Chloride 103 mmol/L (98-107); Estimated Creatinine Clearance 62 ml/min; Glucose 165 mg/dl (70-99); Potassium 5.1 mmol/L (3.5-5.1); Sodium 130 mmol/L (135-145); eGFR > 60.00
[2025-05-14] MEDS: NOVOLOG FLEXPEN-LOW RESISTANCE 1 UNITS SC ×2 (13:31→18:15)
[2025-05-14 13:53] LABS: Triglycerides 1562 mg/dl (10-149)
[2025-05-14] MEDS: PHENOBARBITAL 65 MG IV (14:44)
--- NOTE | 2025-05-14 14:50 | PTCARENOTE ---
Propofol gtt stopped per order. Pt awake, eyes open, moving all extremities purposefully and to command. Nodding head 'yes' when asked if having pain. PRN dose Fentanyl given per orders. Pt repositioned and comfort care provided. Rt CT remains to
-20cm wall suction w/ small amount dark bloody drainage noted in tubing.
[2025-05-14] MEDS: VERSED 1 MG IV (15:03)
--- NOTE | 2025-05-14 15:05 | PTCARENOTE ---
Pt agitated and hitting arms on side rails. Emotional support provided w/o effect. Versed 1mg IV given per order. Pt resting quietly w/ eyes closed soon after administration. Will continue to monitor.
[2025-05-14] MEDS: COLACE PO (16:03)
[2025-05-14] MEDS: SENOKOT PO (16:03)
[2025-05-14] MEDS: ZETIA PO (16:03)
[2025-05-14 16:24] LABS: Triglycerides 133 mg/dl (10-149)
--- NOTE | 2025-05-14 17:00 | PTCARENOTE ---
Pt continues to rest quietly- Arousable to tactile/verbal stimuli. nods appropriately and following commands to squeeze both hands/wiggle toes both feet. Spicer continues to drain clear liset urine. Rt CT remains to -20cm suction w/ small amount of
bloody drainage noted- Rt chest wall dressing w/ small amount of shadow drainage, will monitor. Call vidal w/in pt reach and safe environment maintained.
[2025-05-14 18:11] LABS: Glucose - Point of Care 185 mg/dl (70-99)
[2025-05-14] MEDS: ROBITUSSIN 200 MG TUBE ×2 (18:32→22:39)
[2025-05-14] MEDS: COLACE LIQUID 100 MG TUBE (19:21)
[2025-05-14] MEDS: SENNA SYRUP 8.8 MG TUBE (19:21)
[2025-05-14] MEDS: REMOVE LIDOCAINE PATCH 1 PATCH REMOVE (19:22)
[2025-05-14] MEDS: ADVAIR HFA 115/21 MCG INHALER 4 PUFF INH (19:44)
--- NOTE | 2025-05-14 20:30 | PTCARENOTE ---
Pt is Lethargic but easily arousable and agitated but follows commands. C/o of pain at chest tube site. Intubated AC 450/40%/18/5peep ETT on right side. Propofol per protocol. Pt has alot of oral secretions. NSR on monitor. CT on right side to -20cm
of wall suction, no air leaks, tidaling or crepitus upon inspection. CT draining dark bloody drainage.
[2025-05-14] MEDS: LIPITOR 80 MG TUBE (22:39)
[2025-05-14 22:42] LABS: Glucose - Point of Care 178 mg/dl (70-99)
[2025-05-14] MEDS: LANTUS 0.1 UNITS SC (22:42)
[2025-05-15] VITALS (48 sets, daily range): BP systolic 90–149; BP diastolic 51–81; BMI 37.8
[2025-05-15] MEDS: SUBLIMAZE 50 MCG IV ×2 (00:31→08:36)
[2025-05-15] MEDS: NOVOLOG FLEXPEN-LOW RESISTANCE 1 UNITS SC ×4 (00:36→18:09)
[2025-05-15 00:37] LABS: Glucose - Point of Care 195 mg/dl (70-99)
[2025-05-15] MEDS: STERILE WATER FOR INJECTION IV ×2 (00:37→12:21)
[2025-05-15] MEDS: SUBLIMAZE 100 IV ×3 (01:47→22:43)
[2025-05-15] MEDS: DIPRIVAN 100 IV ×4 (01:58→22:43)
--- NOTE | 2025-05-15 02:00 | PTCARENOTE ---
Pt RASS +1, Pt able to nod head 'Yes' and 'No', Shes having pain at chest tube site. PRN given, Fentanyl gtt started. Right CT to -20cm wall suction, draining bloody drainage, no crepitus or air leaks. Oxygen saturations remain above 93%.
[2025-05-15 04:44] LABS: B.E. 0.6 mmol/L; HCO3 23.6 mmol/L (21-28); O2 Saturation % 98.5 % (94-98); PCO2 31 mmHg (32-35); PO2 81 mmHg (83-108)
[2025-05-15 05:46] LABS: Hematocrit 27.1 % (37.0-47.0); Hemoglobin 8.4 g/dL (12.0-16.0); Mean Corp Hgb Conc. 31.0 g/dL (33.0-37.0); Mean Corpuscular Volume 94.1 fL (81.0-99.0); Nucleated Red Blood Cells % 0 %; Platelet Count 218 10^3/uL (130-400); Red Cell Dist. Width 18.1 % (11.5-14.5)
[2025-05-15 05:51] LABS: ALT (SGPT) < 10 U/L (0-35); AST (SGOT) 15 U/L (14-36); Albumin 2.4 g/dl (3.5-5.0); Alkaline Phosphatase 37 U/L (38-126); Blood Urea Nitrogen 20 mg/dl (7-17); Calcium 8.4 mg/dl (8.4-10.2); Carbon Dioxide 24 mmol/L (22-30); Chloride 109 mmol/L (98-107); Estimated Creatinine Clearance 62 ml/min; Glucose 142 mg/dl (70-99); Magnesium 1.8 mg/dl (1.6-2.3); Potassium 4.4 mmol/L (3.5-5.1); Sodium 135 mmol/L (135-145); Total Protein 5.0 g/dl (6.3-8.2); Triglycerides 186 mg/dl (10-149); eGFR > 60.00
[2025-05-15] MEDS: STERILE WATER FOR INJECTION 10 ML IV ×4 (06:06→22:28)
[2025-05-15] MEDS: MAXIPIME 1000 MG IV ×3 (06:06→22:27)
[2025-05-15 06:10] LABS: Glucose - Point of Care 165 mg/dl (70-99)
[2025-05-15] MEDS: DUONEB 3 ML INH ×4 (07:30→20:19)
[2025-05-15] MEDS: ADVAIR HFA 115/21 MCG INHALER 4 PUFF INH ×2 (07:31→15:37)
--- NOTE | 2025-05-15 07:35 | W.PN.ANS.POP ---
Anesthesia Post Operative
- Anesthesia Post Op Note
Vital Signs Stable-See Nursing Note: Yes
Airway Patent: Yes (intubated)
Adequate Pain Control: Yes
Change in Mental Status: No (sedated)
Current Postoperative Nausea & Vomiting: No
Anesthesia Complications: No
General Anesthetic Recall: No
Unplanned Admission: No
Post Op Hydration Adequate: Yes
--- NOTE | 2025-05-15 07:41 | W.PN.HOSP.TC ---
Today's Communication/Plan
-
cont intubation for lung reexpansion as per surgical service
follow labs in AM
Assessment / Plan
Assessment / Plan
69yo F with PMHx of anxiety, COPD, DM, chronic back pain, CKD stage 3b, Hx of CVA, lung CA s/p minimally invasive wedge resection for Stage IA right lower lobe lung cancer on 04/15/2025 with hemothorax complications afterwards, DVT and pulmonary
embolism on ELiquis, HFpEF, was sent to rehab 5 days prior to admission and developed worsening dyspnea with R chest pain and hypoxia, in ED found significant R sided hemothorax with possible pneumonia s/p chest tube on 05/11/25, IVC filter on
05/12/25 and s/p hematoma evacuation by on 05/14/25 remained intubated for lung reexpansion
A/P
#Acute hypoxic respiratory failure 2/2 R sided hemothorax with mediastinal shift most likely 2/2 Eliquis postOP 2/2 lung CA
Hold Eliquis
chest tube
pain resolved with depressurizing R lung
Pulmonary consult
Chest surgery consult: plan for hematoma evacuation on 05/14/25, remained intubated for lung reinflation postOP
Follow Hgb, transfuse as needed to keep Hgb >8
#Recent Acute DVT and PE
s/p IVC filter on 05/12/25
LE US w/o DVT
Medically indicated since will need Eliquis to be held
normal RV function on TTE on 05/11/25
#Hypotension
IVF, transfuse PRBC to keep Hgb close to 8
follow BP trend
#Chronic HFpEF
#Essential HTN
not in exacerbation
Hold lasix and BP meds
#COPD not in exacerbation
#Possible pneumonia, most likely HCAP
Cefepime
VAnco stopped since MRSA neg
Sputum Cx, pleural fluid Cx pending
cont bronchodilators
#Chronic back pain 2/2 DJD s/p Sx
cont home regimen
#Stage 2 left medial buttock pressure injury, POA
Wound care
#CKD stage 3b
Cr stable 1.4-1.5
follow Cr
#DM type 2 with nephropathy
Accuchecks, Insulin SS, hold bolus while NPO
DM diet when ready
#2 cm low-density lesion in the superior right lobe the liver
hemangioma as per radiologist
#Benign thyroid nodule
stable since 2009
DVT ppx SCDs
Full code
I ahve spent at least 52min reviewign chart, test results, communication with consultants and providing direct patient care
Anticipated Discharge: > 48 hours
Subjective/Interval History
-
Date of Service: May 15, 2025
Objective Data
-
Labs:
Laboratory Results
05/15/25 05/15/25
04:38 04:46
WBC 9.3
Hgb 8.4 L
Hct 27.1 L
Plt Count 218
HCO3 23.6
Sodium 135
Potassium 4.4
Chloride 109 H
Carbon Dioxide 24
BUN 20 H
Creatinine 0.9
Glucose 142 H
Calcium 8.4
Total Bilirubin 0.7
AST 15
ALT < 10
Alkaline Phosphatase 37 L
Vital Signs:
Vital Signs
Temp Pulse Resp BP Pulse Ox
99.2 F 72 16 124/55 94
05/15/25 01:28 05/15/25 06:00 05/15/25 06:00 05/15/25 06:00 05/15/25 06:00
I&O
05/14/25 05/15/25 05/16/25
06:59 06:59 06:59
Intake Total 2330 / 2330 222.9 / 222.9
Output Total 2435 / 2435 1460 / 1460
Balance -105 / -105 -1237.1 / -1237.1
Review of Systems
-
Unable to obtain full review of systems at this time due to: Patient Intubation
Physical Exam
-
General: No Apparent Distress
Respiratory: Clear to Auscultation
GI: Soft, Nontender and Nondistended
Neuro: Awake
Psych: Calm
--- NOTE | 2025-05-15 08:18 | W.PN.INTV ---
Today's Communication / Plan
Recommendations
Mechanical ventilation
Repeat CT chest tomorrow AM, as per Dr. Banuelos - may need to go back to OR, so hold off on SBT until CT reviewed by Dr. Banuelos
Monitor right-sided large bore chest tube output
Pain control
Lightly sedate with goal RASS 0 to -2
Follow-up cultures (NGTD from pleural space and blood)
Goal BG 140�180
Postoperative management as per thoracic oncology
Continue ICU level care for this critically ill patient
Assessment
-
69-year-old female with a past medical history of left upper lobe stage Ib lung cancer s/p resection (2022), right lower lobe squamous cell carcinoma s/p wedge resection on 04/15/2025, DM type II, hypertension, brain aneurysm s/p clipping, bilateral
distal DVT (diagnosed 04/25/2025) and history of CVA who presented with shortness of breath. Patient was initially hypotensive to 86/62, saturating 93% on 4 L/min, breathing at 20 breaths/min with pulse rate 93. She has remained afebrile. Initial
labs showed leukocytosis to 21.3, Hb 9.7, absolute eosinophil count: 300, lactate 3.6, and COVID-19 negative. Patient found to have a large right-sided pleural effusion with mediastinal shifting from right to left as well as hemorrhage in the right
posterior lung. In the ER she was given 250 cc bolus of NS 0.9%, cefepime, vancomycin, Zofran, Dilaudid, and morphine, and a PERT alert was called. Case discussed amongst myself in addition to IR and thoracic oncology, Dr. Banuelos, and the PE is not
the main pathology causing her shortness of breath + hypoxia. The main issue is her large right-sided pleural effusion which is causing mediastinal shift. Chest tube recommended and IR inserted a 20 Australian Thal-Quick chest tube with initially
almost no return with clots being pulled through the tube initially with manual aspiration performed. Because of this, the catheter was exchanged for a 16 Australian pigtail catheter with the pigtail maneuvered in an effort to disrupt some of the
loculations of the complex effusion, and this allowed improved drainage with a more inferior position of the catheter. There were no immediate complications and the patient was transferred to the ICU for further care with marketing forecaster/pulmonary
service consulted for additional management/recommendations.
Impression:
#Large right-sided pleural effusion with loculated components with mediastinal shift (right to left) s/p chest tube placed by IR on 05/12/2025 (20Fr Thal-Quick chest tube failed to drain fluid and was exchanged for 16 Fr pigtail catheter) now s/p
thoracotomy with large-bore 32 Fr chest tube placed during procedure (POD #1)
#Right-sided pulmonary hemorrhage into pleural space � suspected to be from oozing s/p RLL wedge resection on 04/15/2025
#Acute anemia due to right-sided pulmonary hemorrhage s/p 3 units PRBC since admission
#Acute hypoxic respiratory failure on mechanical ventilation (intubated for the OR on 05/14/2025)
#Bilateral pulmonary embolism with right heart strain
#Thyroid nodules (stable)
Plan:
- Patient obtained a chest tube on day of admission via IR for her large right-sided pleural effusion that is a mixture between serosanguinous fluid and blood products
- Pleural fluid studies were sent on 05/12, and pleural fluid hematocrit was only 2.2 hence ruling out hemothorax. The pleural fluid pH was low at 7.26, with 1104 white blood cells which was monocyte predominant, glucose 63, T protein 5.9, LDH
1398. This is diagnostic of an exudative, complex effusion; she does have multifocal consolidative opacities on the right lung hence this is likely a complex parapneumonic effusion from a right-sided pneumonia; she is also bleeding into her
right-sided pleural space
- Follow-up pleural fluid cultures (NGTD); cytopathology is negative for malignancy and shows blood scattered with lymphocytes, neutrophils and rare mesothelial cells
- I discussed her case with thoracic oncologist, Dr. Banuelos
- Repeat CT chest obtained on 05/13 showing a persistent large heterogeneous right pleural effusion with known hemorrhagic products, although there is mild improvement seen in the amount of fluid in the right hemithorax with improved mediastinal
shift
- Patient went to the OR on 05/14, and underwent thoracotomy with replacement of her 16 Fr pigtail catheter with a large bore, 32 Fr chest tube
- Continue to monitor chest tube output
- CXR postoperatively showed improved aeration in the right mid to lower lung zone
- Continue with suction, currently at -20 cmH2O
- Pain control, which was very difficult after her wedge resection last month and she had followed with a pain management doctor as an outpatient
- Given that the patient has a bilateral PE, we are unable to anticoagulate in the setting of her right sided bloody effusion with blood products seen in the pleural space. Case was discussed with interventional radiology as well as thoracic
oncology, Dr. Banuelos, and it is consensus that patient will need IVC filter, which she obtained on 05/13, which was retrievable. Hopefully she can have the filter removed in 3-6 months after she recovers
- Echo showed LVEF is preserved at 55-6% with upper normal RV size and normal function, with PASP now normal at 29 mmHg from 52 mmHg on last echo on 04/25/2025
- Lower extremity duplex was negative for DVT
- Continue empirically with antibiotics given concern for a complex parapneumonic effusion � continue cefepime; vancomycin DC'd given her MRSA swab was negative
- Follow-up blood cultures x 2 (collected 05/11); of note, she was recently hospitalized here from 04/25 - 05/07/2025 and had received antibiotics at that time with Zithromax, Zosyn, IV vancomycin and cefepime, hence she is at risk of
hospital-acquired infections including Pseudomonas + MRSA
- Continue with mechanical ventilation with daily SAT/SBT if clinically appropriate --> obtaining CT chest tomorrow, hence hold off on SBT until this is reviewed by thoracic Oncology, Dr. Banuelos, in the event that she needs to go back to OR on Friday
(05/16)
- Of note, while patient was waiting for her operation today, she had a nosebleed which was not life-threatening
- Maintain plateau pressure <30 and titrate FiO2 + PEEP to keep SpO2 >90-94%
- Continue aspiration precautions; keep HOB >30-45�
- Continue with Advair HFA 115 mcg + DuoNebs QID
- prn nebulized bronchodilators - not currently bronchospastic
- Oropharyngeal + deep ETT suctioning with subglottic as needed
- Daily CXR + blood gas
- Daily vent adjustments as needed based on blood gas and SaO2
- Low level of sedation with goal RASS as 0 to -2
- PFTs on 02/22/2025 which showed a mild restrictive lung defect with T% predicted, with no evidence of COPD, and a mildly reduced gas exchange capacity (DLco: 65%)
- She is no longer wheezing as of 05/13 - -> if her wheezing returns then we will consider starting systemic steroids however I am worried that if her right pleural space is infected that steroids may worsen this and delay recovery
- Maintain MAP>65
- Replete electrolytes with K>4, Mg>2
- Maintain euglycemia with goal BG 140-180; HbA1c 8.1 on 04/25/2025
- Trend H/H and transfuse if needed to keep Hb>7-8g/dL; keep plt>50k (given her postoperative status)
- NPO for now; OGT inserted; start tube feeds
- DVT ppx: SCDs for now (unable to give anticoagulation given the bleeding seen in the patient's right lung)
Continue ICU level of care for this critically ill patient
Critical care statement: A total of 39 minutes of critical care time was provided for this patient today. This includes management of unstable vital signs, evaluation of the patient at bedside, reviewing the patient's pertinent medical records
including radiographs, microbiology, laboratory evaluations, and discussion with primary team, consultants, pharmacy, nutrition, physical therapy, case management, charge nurse, critical care nursing, and respiratory therapy.
Subjective Dataa
Subjective Data
Date of Service:
Date of Service: May 15, 2025
Chief Complaint: Director [employer] Follow Up
Subjective:
Patient was seen and evaluated this morning. Afebrile overnight. Currently sedated on fentanyl at 75 mcg/hr and propofol at 25 mcg/kg/min. Heart rate 66, BP 107/58 and saturating 98% on AC/CMV 16/400/5/40%, with PIP 29 cmH2O, VTe 370 and
breathing at 16 breaths/min. Right-sided chest tube in place, draining serosanguineous fluid. ETCO2: 31
Review of Systems
General: Unobtainable - Sedation (. +)
Objective Data
Data Reviewed
Vital Signs / I&O / Oxygen:
Vital Signs
Temp Pulse Resp BP Pulse Ox
99.0 F 80 18 113/81 97
05/15/25 08:00 05/15/25 09:00 05/15/25 09:00 05/15/25 09:00 05/15/25 09:00
Intake and Output
05/14/25 05/15/25 05/16/25
06:59 06:59 06:59
Intake Total 2330 / 2330 222.9 / 241.6 61.7 / 61.7
Output Total 2435 / 2435 1460 / 1460
Balance -105 / -105 -1237.1 / -1218.4 61.7 / 61.7
SaO2 [A/C] 97
SaO2 97
Nasal Cannula flow liters per 4
minute
Physical Exam
General: Respiratory Distress (negative), Comfortable and Chills (negative)
HEENT: Normocephalic, Anicteric and Other (ETT in place)
Cardiovascular: S1-S2, Regular Rhythm and Peripheral Edema (Trace lower extremity edema bilaterally)
Respiratory: Wheeze (negative), Rhonchi (negative), ET Tube (Mechanical breath sounds heard bilaterally) and Chest Tube (Right-sided chest tube on negative suction at [id number] with no air leak appreciated)
GI: Soft, Distended (Abdominal obesity), Non Tender and Normal Bowel Sounds
Neurology: Tremors (negative) and Other (Sedated)
Skin: Warm, Dry, Cyanosis (negative) and Jaundice (negative)
Labs/Micro/Reports
Lab Data
05/15/25 04:46
05/15/25 04:46
Laboratory Results
05/14/25 05/14/25 05/15/25
12:02 12:16 04:38
PT 15.8 H
INR 1.23
APTT 29.9
pH 7.28 L 7.49 H
pCO2 52 H 31 L
pO2 80 L 81 L
HCO3 24.4 23.6
O2 Delivery Level Not Reportable
Microbiology
05/11/25 15:30 Blood/Venous Blood Culture - Preliminary
No Growth in 72 hours- Final report to follow
05/11/25 14:29 Blood/Venous Blood Culture - Preliminary
No Growth in 72 hours- Final report to follow
05/12/25 13:10 Pleural Fluid Body Fluid Culture - Preliminary
No Growth After 48 Hours
05/12/25 13:10 Pleural Fluid Gram Stain - Preliminary
05/12/25 13:10 Pleural Fluid Fungal Culture - Preliminary
Culture in progress.
Positive cultures are reported as soon as detected.
Final report to follow in four to five weeks.
05/11/25 21:09 Nose Nasal Screen MRSA (PCR) - Final
MRSA not detected - performed by PCR methodology.
[2025-05-15] MEDS: ROBITUSSIN 200 MG TUBE ×4 (08:42→22:27)
[2025-05-15] MEDS: LIDOCAINE 4% PATCH 1 PATCH TOPICAL (08:42)
[2025-05-15] MEDS: COLACE LIQUID 100 MG TUBE ×2 (08:42→19:23)
[2025-05-15] MEDS: MIRALAX 17 GRAMS TUBE (08:42)
[2025-05-15] MEDS: SENNA SYRUP 8.8 MG TUBE ×2 (08:42→19:23)
[2025-05-15] MEDS: LASIX 40 MG IV (11:22)
[2025-05-15] MEDS: NEUTRA-PHOS POWDER PACKET 500 MG TUBE (11:22)
[2025-05-15] MEDS: ZETIA 10 MG TUBE (11:23)
[2025-05-15 12:22] LABS: Glucose - Point of Care 152 mg/dl (70-99)
--- NOTE | 2025-05-15 12:22 | PTCARENOTE ---
Dr Guallpa in room to see pt. Adjusted vent tidal volume to 400ml. POx 98% w/ RR 17. Current vent settings: 16/400/.40/+5, PIP=28. Jevity 1.5 tube feeding started via OGT at 20ml/hr per order. Auto water flush set for 25ml q6hr. Pt continues to
rest quietly- opens eyes to name and follows commands- forensic engineer equal in strength bilaterally- and nodding appropriately to questions. No additional changes from previous assessment findings.
--- NOTE | 2025-05-15 13:33 | CM ---
Addendum entered by Berta Munguia 05/15/25 13:51:
Pt recently at [facility]. Will discuss with family to determine SNF preferences - return to [facility] vs. alternate SNF choices.
Original Note:
CM following for discharge planning needs. Pt s/p R thorascopic hematoma evacuation yesterdayand currently still on Vent for lung re-expansion; chest tube to wall suction.
PT/OT evals needed when medically stable to determine discharge plan. Anticipate probable SNF placement pending PT/OT evaluation.
Plan: CM will continue to follow to coordinate all identified discharge planning needs. Watch for SNF and O2 needs prior to discharge.
--- NOTE | 2025-05-15 13:52 | OR.RPT ---
Operative Report
Operative Report
Date of Operation: May 14, 2025
Preoperative Diagnosis: Right hemothorax - J94.2
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
Surgeon: Riky Banuelos M.D.
Operation: Attempted right thoracoscopy, mini-thoracotomy, and decortication and evacuation of hematoma - 48862
Anesthesia: GET
Estimated Blood Loss: 700 cc
Drains: Chest tube in the right chest
Specimen: None
Complications: None
Procedure:
The patient was transported to the operating room and positioned in the usual supine position. After establishing adequate double-lumen endotracheal anesthesia, the patient was repositioned to the left decubitus position with the right side up. The
right chest was prepared and draped in the standard manner.
At this time, a thoracostomy insertion was made in the posterior axillary line at the 5th intercostal space. Skin insertion was made with a #15 blade, and this was taken through the skin into the subcutaneous tissue. The subcutaneous tissue was
dissected with a Cici clamp. An attempt was made to enter the pleural space without success due to the lung scarring up against the pleura. During this process, the lung was entered, and some bleeding and air leak were noted. With these findings, a
decision was made to reopen the mini thoracostomy incision that was made previously. The skin was made with a #15 blade, and this was taken through the skin into the subcutaneous tissue. The 5th intercostal space was identified, and the intercostal
muscle was divided using electrocautery.
Again, significant adhesions between the lung and the chest wall were observed, indicating fibrothorax. An effort was made to separate the lung. During this process, the lung was entered several times. Ultimately, after some decortication, a small
pocket in the posterior part of her chest was accessed. Old blood was aspirated. At this point, previous bleeding points in the lung tissue were controlled using various methods, including Tisseel, Surgicel, and coagulation.
Due to the extensive fibrothorax, adhesions, and loculations, a decision was made to place a 32 Croatian chest tube in the previously identified right posterior pocket and to terminate the procedure. The chest tube was brought out through the
previously created thoracotomy incision and secured to the skin with a #2 Prolene stitch. The ribs were approximated with a #1 Vicryl in the transcostal fascia. The serratus anterior muscle was approximated with a #1 Vicryl in a running fashion. The
fascia was approximated with a #1 Vicryl in a continuous suture. The subcutaneous tissue was approximated with a #3 Vicryl in a running pattern. The skin was approximated with a #4 Monocryl in a running subcuticular stitch. Steri-Strips and serial
dressings were applied. The chest was connected to the Pleurovac.
The patient was kept intubated and transferred to the ICU for post-operative care. The final counts of needles, sponges, and instruments were correct. This marked the end of the procedure.
--- NOTE | 2025-05-15 16:40 | PTCARENOTE ---
Pt's in room to visit. Pt restless and nodded 'yes' when asked if having pain and 'yes' when asked if pain is from her Rt side. Fentanyl bolus given as ordered prn and comfort care provided. Pt resting quietly following administration.
updated on pt's present condition/plan of care, questions answered. No changes noted form previous assessment findings.
[2025-05-15 16:48] LABS: Hemoglobin 9.1 g/dL (12.0-16.0)
[2025-05-15 18:07] LABS: Glucose - Point of Care 175 mg/dl (70-99)
[2025-05-15] MEDS: REMOVE LIDOCAINE PATCH 1 PATCH REMOVE (19:27)
--- NOTE | 2025-05-15 20:30 | PTCARENOTE ---
Pt intubated/sedated, resting comfortably. With stimulation, patient follows simple commands and nods head appropriately. Restraints maintained for safety reasons, order obtained. 99.1 PO, NSR on monitor. Pulses palpable trace edema. IV lines
flushed/patent. Titrating fentanyl/propofol to clinical endpoints. #8 ETT @22cm lip, adjusted position q8h. Vent settings RR16, 40%, 400,5. Coarse breath sounds, very diminished on right. Copious tenacious oral secretions. Minimal from ETT. CT to
-20 suction, no air leak or crepitus. Dressing with moderate amount sanguinous drainage, changed. OGT positioned at 50, jevity at goal. Bowel regimen on board. Water flushes q6h 2/2 sodium levels. Will repeat in AM with labs. #16 rosita fam, no
urimeter, draining clear yellow urine. Rec'd lasix on previous shift. Skin as documented. Will monitor.
[2025-05-15] MEDS: LIPITOR 80 MG TUBE (22:27)
[2025-05-15] MEDS: LANTUS 0.1 UNITS SC (22:27)
[2025-05-15 23:52] LABS: Glucose - Point of Care 147 mg/dl (70-99)
[2025-05-16] VITALS (31 sets, daily range): BP systolic 95–159; BP diastolic 42–80; BMI 37.2
[2025-05-16] MEDS: NOVOLOG FLEXPEN-LOW RESISTANCE SC (00:03)
--- NOTE | 2025-05-16 00:30 | PTCARENOTE ---
No change in previous assessment. ETT mirza changed with resp therapist. Plan for CT this am.
[2025-05-16 02:39] LABS: Hematocrit 26.2 % (37.0-47.0); Hemoglobin 8.3 g/dL (12.0-16.0); Mean Corp Hgb Conc. 31.7 g/dL (33.0-37.0); Mean Corpuscular Volume 93.6 fL (81.0-99.0); Nucleated Red Blood Cells % 0 %; Platelet Count 219 10^3/uL (130-400); Red Cell Dist. Width 18.0 % (11.5-14.5); Venous Blood Gas B.E. 3.0 mmol/L (-4 to +4); Venous Blood Gas O2 Sat % 99.5 %; Venous Blood Gas O2 Therapy 40%
[2025-05-16 02:50] LABS: INR 1.27; PT 16.2 Sec (11.4-14.6)
[2025-05-16 02:52] LABS: APTT 24.0 Sec (23.4-35.0)
[2025-05-16 03:01] LABS: ALT (SGPT) 10 U/L (0-35); AST (SGOT) 13 U/L (14-36); Albumin 2.6 g/dl (3.5-5.0); Alkaline Phosphatase 39 U/L (38-126); Blood Urea Nitrogen 24 mg/dl (7-17); Calcium 9.0 mg/dl (8.4-10.2); Carbon Dioxide 28 mmol/L (22-30); Chloride 106 mmol/L (98-107); Estimated Creatinine Clearance 51 ml/min; Glucose 145 mg/dl (70-99); Magnesium 1.8 mg/dl (1.6-2.3); Potassium 3.9 mmol/L (3.5-5.1); Sodium 136 mmol/L (135-145); Total Protein 5.4 g/dl (6.3-8.2); eGFR 54.06
[2025-05-16] MEDS: DIPRIVAN 100 IV (03:49)
[2025-05-16] MEDS: MAGNESIUM SULFATE 102 GRAMS IV (03:55)
[2025-05-16] MEDS: KCL 160 MEQ IV (03:55)
--- NOTE | 2025-05-16 04:34 | PTCARENOTE ---
Labs sent and resulted. Mag and K repletions ordered and infusing. Will monitor.
[2025-05-16] MEDS: MAXIPIME 1000 MG IV (06:20)
[2025-05-16] MEDS: STERILE WATER FOR INJECTION 10 ML IV (06:20)
[2025-05-16] MEDS: NOVOLOG FLEXPEN-LOW RESISTANCE 1 UNITS SC ×3 (06:22→16:59)
[2025-05-16 06:29] LABS: Glucose - Point of Care 153 mg/dl (70-99)
--- NOTE | 2025-05-16 07:46 | W.PN.GENERIC ---
Assessment / Plan
-
S/p Evacuation of the right thorax hematoma POD #2
Stable
Hg remain stable. No further transfusion since her surgery on Friday
Min drainage from the chest tube without air leak
Will put chest tube to H20 seal
CXR appears to be stable but better compared to the preop CXR. The official reading pending.
Since her Hg remains stable with stable CXR, I would not take her back to the OR.
Surgery will create more issues at this time
I would cancel CT scan unless needed for other reasons
Start wean pt when the critical care team feels the pt is ready
Continue current support
Will continue to follow
Physician Progress Note
Subjective
On vent. Appears to comfortable with stable VS
Objective
Vital Signs
Temp Pulse Resp BP Pulse Ox
98.6 F 73 17 120/58 97
05/16/25 04:35 05/16/25 06:30 05/16/25 06:30 05/16/25 06:30 05/16/25 06:30
Lab Results
05/16/25 02:15
05/16/25 02:15
Lungs - CTA
Chest tube without airleak. Drained ~170 since OR
[2025-05-16] MEDS: DUONEB 3 ML INH ×4 (07:47→21:10)
[2025-05-16] MEDS: ADVAIR HFA 115/21 MCG INHALER 4 PUFF INH (07:48)
[2025-05-16] MEDS: MILK OF MAGNESIA 30 ML TUBE (08:25)
[2025-05-16] MEDS: ROBITUSSIN 200 MG TUBE (08:25)
[2025-05-16] MEDS: COLACE LIQUID 100 MG TUBE (08:25)
[2025-05-16] MEDS: MIRALAX 17 GRAMS TUBE (08:25)
[2025-05-16] MEDS: LIDOCAINE 4% PATCH 1 PATCH TOPICAL (08:25)
[2025-05-16] MEDS: SENNA SYRUP 8.8 MG TUBE (08:25)
--- NOTE | 2025-05-16 08:52 | PTCARENOTE ---
report received, assessments per work list. propofol off, placed on vent wean. tube feeds placed on hold for wean. patient mildly anxious. follows commands. wrist restraints maintained for patient safety. CT placed to water seal by surgery. dark
bloody drainage. no crepitus or air leak noted. fam draining clear yellow urine. OGT placement verified. cxr taken
--- NOTE | 2025-05-16 09:48 | PTCARENOTE ---
extubated to 6 liters midflow. ogt removed. restraints off
[2025-05-16] MEDS: DILAUDID 1 MG IV ×5 (10:22→23:02)
[2025-05-16] MEDS: MS CONTIN (EXTENDED RELEASE) 30 MG PO ×2 (10:22→20:18)
--- NOTE | 2025-05-16 10:24 | RESPNOTE ---
pt extubated at 0945 am to 6l nasal cannula, sats of 94% for noted
--- NOTE | 2025-05-16 11:09 | W.PN.INTV ---
Today's Communication / Plan
Recommendations
- Tolerated SAT/SBT, extubate to nasal cannula
- Resume MS Contin twice daily along with as needed albuterol IV
- Resume diet
- Wean oxygen as tolerated
- Continue chest tube to waterseal
- Anticipate transfer out of ICU on 05/17
Assessment
-
69-year-old female with a past medical history of left upper lobe stage Ib lung cancer s/p resection (2022), right lower lobe squamous cell carcinoma s/p wedge resection on 04/15/2025, DM type II, hypertension, brain aneurysm s/p clipping, bilateral
distal DVT (diagnosed 04/25/2025) and history of CVA who presented with shortness of breath. Patient was initially hypotensive to 86/62, saturating 93% on 4 L/min, breathing at 20 breaths/min with pulse rate 93. She has remained afebrile. Initial
labs showed leukocytosis to 21.3, Hb 9.7, absolute eosinophil count: 300, lactate 3.6, and COVID-19 negative. Patient found to have a large right-sided pleural effusion with mediastinal shifting from right to left as well as hemorrhage in the right
posterior lung. In the ER she was given 250 cc bolus of NS 0.9%, cefepime, vancomycin, Zofran, Dilaudid, and morphine, and a PERT alert was called. Case discussed amongst myself in addition to IR and thoracic oncology, Dr. Banuelos, and the PE is not
the main pathology causing her shortness of breath + hypoxia. The main issue is her large right-sided pleural effusion which is causing mediastinal shift. Chest tube recommended and IR inserted a 20 Cambodian Thal-Quick chest tube with initially
almost no return with clots being pulled through the tube initially with manual aspiration performed. Because of this, the catheter was exchanged for a 16 Cambodian pigtail catheter with the pigtail maneuvered in an effort to disrupt some of the
loculations of the complex effusion, and this allowed improved drainage with a more inferior position of the catheter. There were no immediate complications and the patient was transferred to the ICU for further care with professional bass fisher/pulmonary
service consulted for additional management/recommendations.
Assessment and plan:
#1. Right sided hemothorax with mediastinal shift
-Status post chest tube placement by IR on 05/12, subsequent large bore 32 Cambodian chest tube
-Status post right thoracoscopy with minithoracotomy, decortication and evacuation of hematoma
-Chest tube to waterseal now, no active bleeding or airleak noted
-Follow-up chest x-ray improving
-Continue to stay off anticoagulation
-Follow-up chest x-ray in a.m.
-Pleural fluid cultures negative, discontinue antibiotics
#2. Acute hypoxic respiratory failure on mechanical ventilation
-Intubated for thoracotomy on 05/14, extubated 05/16
-Tolerated SAT SBT well, successfully extubated, currently on nasal cannula, wean as tolerated
-Follow-up chest x-ray in a.m.
#3. History of non-small cell lung cancer
- KRAS positive, PD-L1 expression 1%. S/p minimally invasive right lower lobe wedge resection by Dr. Banuelos on 04/15/2025
- Resume outpatient follow-up
#4. Acute bilateral pulmonary embolism with RV strain
- Suspect related to lung cancer as well as recent hospitalizations as well as surgeries
- Patient had been on Eliquis, discontinued in view of right-sided hemothorax
- S/p IVC filter placement 05/12/2025
- Not a candidate for anticoagulation in view of recurrent hemothorax
#5. Anemia, acute, related to blood loss
- Hemothorax in the setting of history of lung cancer s/p wedge resection and chronic anticoagulation with Eliquis
- Hemoglobin stable now
#6. Chronic pain
- Patient has been on MS Contin 30 mg p.o. twice daily, resume
- Dilaudid on an as needed for breakthrough pain
DVT prophylaxis. SCDs
Critical care statement: A total of 39 minutes of critical care time was provided for this patient today. This includes management of unstable vital signs, evaluation of the patient at bedside, reviewing the patient's pertinent medical records
including radiographs, microbiology, laboratory evaluations, and discussion with primary team, consultants, pharmacy, nutrition, physical therapy, case management, charge nurse, critical care nursing, and respiratory therapy.
Subjective Dataa
Subjective Data
Date of Service:
Date of Service: May 16, 2025
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
Subjective:
Comfortably lying in bed no acute distress.
Review of Systems
Genitourinary: Other (All 14 systems reviewed and negative except as stated above in the history of present illness.)
Objective Data
Data Reviewed
Vital Signs / I&O / Oxygen:
Vital Signs
Temp Pulse Resp BP Pulse Ox
98.7 F 85 20 152/65 95
05/16/25 07:37 05/16/25 09:07 05/16/25 09:07 05/16/25 08:30 05/16/25 09:07
Intake and Output
05/15/25 05/16/25 05/17/25
06:59 06:59 06:59
Intake Total 222.9 / 241.6 1409.2 / 1471.3 431.7 / 431.7
Output Total 1460 / 1460 1999 / 1999 200 / 200
Balance -1237.1 / -1218.4 -590.8 / -528.7 231.7 / 231.7
SaO2 [CPAP/PSV] 96
SaO2 [A/C] 98
SaO2 95
Nasal Cannula flow liters per 4
minute
Physical Exam
General: Respiratory Distress (negative), Comfortable and Chills (negative)
HEENT: Normocephalic and Anicteric
Cardiovascular: S1-S2, Regular Rhythm and Peripheral Edema (None)
Respiratory: Wheeze (negative), Rhonchi (Minimal rhonchi right lower lobe) and Chest Tube (Right-sided chest tube on waterseal, no airleak noted)
GI: Soft, Distended (Abdominal obesity), Non Tender and Normal Bowel Sounds
Neurology: Awake and Alert
Skin: Warm and Dry
Labs/Micro/Reports
Lab Data
05/16/25 02:15
05/16/25 02:15
Laboratory Results
05/16/25
02:15
PT 16.2 H
INR 1.27
APTT 24.0
Microbiology
05/12/25 13:10 Pleural Fluid Acid Fast Bacilli Smear - Preliminary
05/12/25 13:10 Pleural Fluid Acid Fast Bacilli Culture - Preliminary
05/11/25 15:30 Blood/Venous Blood Culture - Preliminary
No Growth in 4 days- Final report to follow
05/11/25 14:29 Blood/Venous Blood Culture - Preliminary
No Growth in 4 days- Final report to follow
05/12/25 13:10 Pleural Fluid Body Fluid Culture - Final
No Growth After 72 Hours
05/12/25 13:10 Pleural Fluid Gram Stain - Final
[2025-05-16 11:19] LABS: Glucose - Point of Care 157 mg/dl (70-99)
--- NOTE | 2025-05-16 11:27 | PTCARENOTE ---
patient incontinent large stool. complete care given. fam removed. alert and oriented. c/o 04/08 pain. dilaudid and mscontin per AUG. patient continues with uncontrolled pain@CT site. Nurses Director and ICU pharmacist updated by tomas salamanca
[2025-05-16] MEDS: TYLENOL 975 MG PO (11:50)
[2025-05-16] MEDS: ZETIA 10 MG PO (11:50)
[2025-05-16] MEDS: NOVOLOG FLEXPEN 6 UNITS SC ×2 (11:55→16:59)
[2025-05-16] MEDS: ZOFRAN 4 MG IV (12:46)
--- NOTE | 2025-05-16 13:58 | W.PN.HOSP.TC ---
Today's Communication/Plan
-
wean o2
adv diet as tolerated
pain control
stop abx
CT to waterseal
Monitor hgb
Assessment / Plan
Assessment / Plan
69yo F with PMHx of anxiety, COPD, DM, chronic back pain, CKD stage 3b, Hx of CVA, lung CA s/p minimally invasive wedge resection for Stage IA right lower lobe lung cancer on 04/15/2025 with hemothorax complications afterwards, DVT and pulmonary
embolism on ELiquis, HFpEF, was sent to rehab 5 days prior to admission and developed worsening dyspnea with R chest pain and hypoxia, in ED found significant R sided hemothorax with possible pneumonia s/p chest tube on 05/11/25, IVC filter on
05/12/25 and s/p hematoma evacuation by on 05/14/25 remained intubated for lung reexpansion
A/P
#Acute hypoxic respiratory failure 2/2 #R sided hemothorax with mediastinal shift most likely 2/2 Eliquis postOP 2/2 lung CA
�Extubated 05/16 to nasal cannula
�Wean O2 as tolerated, O2 goal greater than 92%
�Hold Eliquis
-chest tube
-pain resolved with depressurizing R lung
-Pulmonary consult
-Chest surgery consult: plan for hematoma evacuation on 05/14/25, remained intubated for lung reinflation postOP�extubated 05/16
-Follow Hgb, transfuse as needed to keep Hgb >7
--Pleural fluid cultures negative, discontinue antibiotics
#Recent Acute DVT and PE
-s/p IVC filter on 05/12/25
-LE US w/o DVT
-Not a candidate for anticoagulation due to recurrent hemothorax
-normal RV function on TTE on 05/11/25
#Hypotension
IVF, transfuse PRBC to keep Hgb close to 8
follow BP trend
#Chronic HFpEF
#Essential HTN
not in exacerbation
Hold lasix and BP meds
#COPD not in exacerbation
cont bronchodilators
Pleural fluid cultures negative, discontinue antibiotics
#Chronic back pain 2/2 DJD s/p Sx
cont home regimen
#Stage 2 left medial buttock pressure injury, POA
Wound care
#CKD stage 3b
Cr stable 1.4-1.5
follow Cr
#DM type 2 with nephropathy
Accuchecks, Insulin SS, hold bolus while NPO
DM diet when ready
Acute blood loss anemia
Secondary to hemothorax, exacerbated with anticoagulation
Hemoglobin stable
Monitor off anticoagulation
#2 cm low-density lesion in the superior right lobe the liver
hemangioma as per radiologist
#History of non-small cell lung cancer
- S/p minimally invasive right lower lobe wedge resection by Dr. Banuelos on 04/15/2025
- Resume outpatient follow-up
#Benign thyroid nodule
stable since 2009
DVT ppx SCDs
Full code
Anticipated Discharge: > 48 hours
Subjective/Interval History
-
Date of Service: May 16, 2025
Extubated to nasal cannula, tolerating well.
Objective Data
-
Labs:
Laboratory Results
05/16/25
02:15
WBC 9.4
Hgb 8.3 L
Hct 26.2 L
Plt Count 219
PT 16.2 H
INR 1.27
APTT 24.0
Sodium 136
Potassium 3.9
Chloride 106
Carbon Dioxide 28
BUN 24 H
Creatinine 1.1 H
Glucose 145 H
Calcium 9.0
Total Bilirubin 0.6
AST 13 L
ALT 10
Alkaline Phosphatase 39
Vital Signs:
Vital Signs
Temp Pulse Resp BP Pulse Ox
98.2 F 79 29 125/66 93
05/16/25 11:30 05/16/25 13:00 05/16/25 13:00 05/16/25 13:00 05/16/25 13:46
I&O
05/15/25 05/16/25 05/17/25
06:59 06:59 06:59
Intake Total 222.9 / 241.6 1409.2 / 1471.3 791.7 / 791.7
Output Total 1460 / 1460 1999 / 1999 400 / 400
Balance -1237.1 / -1218.4 -590.8 / -528.7 391.7 / 391.7
Review of Systems
-
History Source: Patient
All other systems: Not reviewed unless documented
Data Reviewed
-
Total Time Spent with Patient (in minutes): 55
Diagnostic Radiology: Report Reviewed by me
CT Scan: Report Reviewed by me
Labs: Labs Reviewed by me
--- NOTE | 2025-05-16 15:27 | PTCARENOTE ---
patient reassessed. more comfortable post second dose Dilaudid. patient dangled at bedside, then assisted to stand. pulse oximeter 88 with exertion. + exertional wheeze. recovered after repositioned in bed. remains on 3 liters. RT at bedside. to
administer neb. no void since Spicer removed. bladder scan per work list. family at bedside. call vidal in reach. c/o mild nausea. Zofran per aug, able to tolerate po without signs aspiration
[2025-05-16] MEDS: DESENEX/MITRAZOL/ZEASORB 1 APPLIC TOPICAL (15:51)
[2025-05-16 16:58] LABS: Glucose - Point of Care 159 mg/dl (70-99)
[2025-05-16 16:59] LABS: Triglycerides 235 mg/dl (10-149)
--- NOTE | 2025-05-16 17:13 | CM ---
Extubated to NC, resumed diet, wean O2, CT to H2O seal. Discharge POC: TBD. Await therapy eval when able.
[2025-05-16] MEDS: TYLENOL 1000 MG PO (17:29)
[2025-05-16] MEDS: MUCINEX 600 MG PO (20:18)
[2025-05-16] MEDS: REMOVE LIDOCAINE PATCH 1 PATCH REMOVE (20:29)
[2025-05-16] MEDS: COLACE PO (20:30)
--- NOTE | 2025-05-16 20:30 | PTCARENOTE ---
Patient alert and oriented, pain well controlled with MS Contin ATC and PRN Dilaudid. ABARCA, helping turn in bed. Afebrile, NSR on monitor. IV lines flushed/patent/capped. Pulses palpable, trace edema. SCDs on, accu checks AC/HS. Lantus as ordered. 3L
nasal cannula, feels SOB at times, but sat 96-98%. Pain meds helping with breathing. Chest tube placed on water seal, xray in AM. Pt tolerating 2000 honey diet, poor appetite. BM on dayshift. Purewick working well, clear yellow urine in canister. Skin
as documented. Will monitor.
[2025-05-16] MEDS: ADVAIR HFA 115/21 MCG INHALER 2 PUFF INH (21:10)
[2025-05-16] MEDS: LIPITOR 80 MG PO (23:00)
[2025-05-16] MEDS: LANTUS 0.1 UNITS SC (23:00)
[2025-05-16 23:07] LABS: Glucose - Point of Care 137 mg/dl (70-99)
[2025-05-17] VITALS (17 sets, daily range): BP systolic 93–138; BP diastolic 44–90; PULSE 68; O2SAT 95
[2025-05-17] MEDS: DILAUDID 1 MG IV ×6 (02:20→21:53)
[2025-05-17] MEDS: TYLENOL 1000 MG PO ×4 (02:20→17:10)
[2025-05-17 02:45] LABS: Hematocrit 29.3 % (37.0-47.0); Hemoglobin 9.0 g/dL (12.0-16.0); Mean Corp Hgb Conc. 30.7 g/dL (33.0-37.0); Mean Corpuscular Volume 96.1 fL (81.0-99.0); Platelet Count 235 10^3/uL (130-400); Red Cell Dist. Width 17.9 % (11.5-14.5)
--- NOTE | 2025-05-17 02:57 | PTCARENOTE ---
Pain under control with tylenol ATC and PRN dilaudid. No change in previous assessment. Will monitor.
[2025-05-17 03:39] LABS: Blood Urea Nitrogen 20 mg/dl (7-17); Calcium 8.8 mg/dl (8.4-10.2); Carbon Dioxide 30 mmol/L (22-30); Chloride 105 mmol/L (98-107); Estimated Creatinine Clearance 61 ml/min; Glucose 89 mg/dl (70-99); Magnesium 1.9 mg/dl (1.6-2.3); Potassium 4.1 mmol/L (3.5-5.1); Sodium 139 mmol/L (135-145); eGFR > 60.00
[2025-05-17] MEDS: DUONEB 3 ML INH ×4 (07:05→19:43)
[2025-05-17] MEDS: ADVAIR HFA 115/21 MCG INHALER 2 PUFF INH ×2 (07:05→19:43)
[2025-05-17] MEDS: SENOKOT 8.6 MG PO (07:18)
[2025-05-17] MEDS: COLACE 100 MG PO (07:18)
[2025-05-17] MEDS: LIDOCAINE 4% PATCH 1 PATCH TOPICAL (07:18)
[2025-05-17] MEDS: MIRALAX PO (07:19)
[2025-05-17] MEDS: MUCINEX 600 MG PO ×2 (07:19→19:34)
[2025-05-17] MEDS: DESENEX/MITRAZOL/ZEASORB 1 APPLIC TOPICAL ×2 (07:19→19:36)
[2025-05-17] MEDS: MS CONTIN (EXTENDED RELEASE) 30 MG PO ×2 (07:19→19:34)
--- NOTE | 2025-05-17 07:43 | PTCARENOTE ---
report received, assessments per work list. patient with pain, has just received prn medication. alert and cooperative. assisting with bed mobility with encouragement. reviewed plan for day with patient. plan to sit oob to chair for breakfast.
coughing and deep breathing encourage. chest tube without leak or crepitus. remains to water seal. call vidal in reach
[2025-05-17 08:03] LABS: Glucose - Point of Care 117 mg/dl (70-99)
[2025-05-17] MEDS: NOVOLOG FLEXPEN-LOW RESISTANCE SC ×3 (08:13→17:06)
[2025-05-17] MEDS: NOVOLOG FLEXPEN 3 UNITS SC (09:45)
[2025-05-17] MEDS: ZETIA 10 MG PO (11:32)
[2025-05-17] MEDS: ZOFRAN 4 MG IV (11:33)
[2025-05-17 13:08] LABS: Glucose - Point of Care 112 mg/dl (70-99)
[2025-05-17] MEDS: NOVOLOG FLEXPEN SC ×2 (13:08→17:13)
--- NOTE | 2025-05-17 13:33 | W.PN.INTV ---
Today's Communication / Plan
Recommendations
- Continue chest tube to waterseal
- Patient can be transferred to IMU, pulmonary team will continue to follow along
Assessment
-
69-year-old female with a past medical history of left upper lobe stage Ib lung cancer s/p resection (2022), right lower lobe squamous cell carcinoma s/p wedge resection on 04/15/2025, DM type II, hypertension, brain aneurysm s/p clipping, bilateral
distal DVT (diagnosed 04/25/2025) and history of CVA who presented with shortness of breath. Patient was initially hypotensive to 86/62, saturating 93% on 4 L/min, breathing at 20 breaths/min with pulse rate 93. She has remained afebrile. Initial
labs showed leukocytosis to 21.3, Hb 9.7, absolute eosinophil count: 300, lactate 3.6, and COVID-19 negative. Patient found to have a large right-sided pleural effusion with mediastinal shifting from right to left as well as hemorrhage in the right
posterior lung. In the ER she was given 250 cc bolus of NS 0.9%, cefepime, vancomycin, Zofran, Dilaudid, and morphine, and a PERT alert was called. Case discussed amongst myself in addition to IR and thoracic oncology, Dr. Banuelos, and the PE is not
the main pathology causing her shortness of breath + hypoxia. The main issue is her large right-sided pleural effusion which is causing mediastinal shift. Chest tube recommended and IR inserted a 20 Hungarian Thal-Quick chest tube with initially
almost no return with clots being pulled through the tube initially with manual aspiration performed. Because of this, the catheter was exchanged for a 16 Hungarian pigtail catheter with the pigtail maneuvered in an effort to disrupt some of the
loculations of the complex effusion, and this allowed improved drainage with a more inferior position of the catheter. There were no immediate complications and the patient was transferred to the ICU for further care with junior marketing associate/pulmonary
service consulted for additional management/recommendations.
Assessment and plan:
#1. Right sided hemothorax with mediastinal shift
- Status post chest tube placement by IR on 05/12, subsequent large bore 32 Hungarian chest tube
- Status post right thoracoscopy with minithoracotomy, decortication and evacuation of hematoma by Dr. Banuelos
- Chest tube to waterseal now, no active bleeding or airleak noted. 60 mL output since beginning of this shift.
- Follow-up chest x-ray stable while on water seal
- Continue to stay off anticoagulation
- Pleural fluid cultures negative, discontinued antibiotics
- Await further recommendations regarding chest tube from Dr. Banuelos
#2. Acute hypoxic respiratory failure on mechanical ventilation
-Intubated for thoracotomy on 05/14, extubated 05/16
-Tolerated SAT SBT well, successfully extubated, currently on nasal cannula, wean as tolerated
#3. History of non-small cell lung cancer
- KRAS positive, PD-L1 expression 1%. S/p minimally invasive right lower lobe wedge resection by Dr. Banuelos on 04/15/2025
- Resume outpatient follow-up
#4. Acute bilateral pulmonary embolism with RV strain
- Suspect related to lung cancer as well as recent hospitalizations as well as surgeries
- Patient had been on Eliquis, discontinued in view of right-sided hemothorax
- S/p IVC filter placement 05/12/2025
- Not a candidate for anticoagulation in view of recurrent hemothorax
#5. Anemia, acute, related to blood loss
- Hemothorax in the setting of history of lung cancer s/p wedge resection and chronic anticoagulation with Eliquis
- Hemoglobin stable now
#6. Chronic pain
- Patient has been on MS Contin 30 mg p.o. twice daily, resumed
- Dilaudid on an as needed for breakthrough pain
- Anticipate pain will improve once chest tube has been removed
DVT prophylaxis. SCDs
Patient saturating well on room air, hemodynamically stable. Transferred to IMU. Pulmonary service will continue to follow along
Critical care statement: A total of 38 minutes of critical care time was provided for this patient today. This includes management of unstable vital signs, evaluation of the patient at bedside, reviewing the patient's pertinent medical records
including radiographs, microbiology, laboratory evaluations, and discussion with primary team, consultants, pharmacy, nutrition, physical therapy, case management, charge nurse, critical care nursing, and respiratory therapy.
Subjective Dataa
Subjective Data
Date of Service:
Date of Service: May 17, 2025
Chief Complaint: Charge Authorizer Follow Up
Subjective:
Patient comfortably sitting in bed in no acute distress
Review of Systems
Genitourinary: Other (All 14 systems reviewed and negative except as stated above in the history of present illness.)
Objective Data
Data Reviewed
Vital Signs / I&O / Oxygen:
Vital Signs
Temp Pulse Resp BP Pulse Ox
98.0 F 66 19 136/71 94
05/17/25 12:18 05/17/25 13:00 05/17/25 13:00 05/17/25 12:00 05/17/25 13:27
Intake and Output
05/16/25 05/17/25 05/18/25
06:59 06:59 06:59
Intake Total 1409.2 / 1471.3 1271.7 / 1391.7 600 / 600
Output Total 1999 / 1999 835 / 1095 910 / 910
Balance -590.8 / -528.7 436.7 / 296.7 -310 / -310
SaO2 [CPAP/PSV] 96
SaO2 [A/C] 98
SaO2 94
Nasal Cannula flow liters per 1
minute
Physical Exam
General: Respiratory Distress (negative), Comfortable and Chills (negative)
HEENT: Normocephalic and Anicteric
Cardiovascular: S1-S2, Regular Rhythm and Peripheral Edema (None)
Respiratory: Wheeze (negative), Rhonchi (Minimal rhonchi right lower lobe) and Chest Tube (Right-sided chest tube on waterseal, no airleak noted)
GI: Soft, Distended (Abdominal obesity), Non Tender and Normal Bowel Sounds
Neurology: Awake and Alert
Skin: Warm and Dry
Labs/Micro/Reports
Lab Data
05/17/25 02:24
05/17/25 02:24
Microbiology
05/11/25 15:30 Blood/Venous Blood Culture - Final
No Growth - Final Report
05/11/25 14:29 Blood/Venous Blood Culture - Final
No Growth - Final Report
05/12/25 13:10 Pleural Fluid Fungal Culture - Preliminary
Culture in progress.
Positive cultures are reported as soon as detected.
Final report to follow in four to five weeks.
05/12/25 13:10 Pleural Fluid Acid Fast Bacilli Smear - Preliminary
05/12/25 13:10 Pleural Fluid Acid Fast Bacilli Culture - Preliminary
05/12/25 13:10 Pleural Fluid Body Fluid Culture - Final
No Growth After 72 Hours
05/12/25 13:10 Pleural Fluid Gram Stain - Final
--- NOTE | 2025-05-17 13:53 | W.PN.GENERIC ---
Assessment / Plan
-
S/p evacuation of hematoma/decortication of right thorax POD #3
Extubated yesterday
No evidence of active bleeding with min chest tube output. CXR stable
I will plan to dc chest tube on if she continues to do well
Will follow
Physician Progress Note
Subjective
Currently sleeping.
Objective
Vital Signs
Temp Pulse Resp BP Pulse Ox
98.0 F 66 19 136/71 94
05/17/25 12:18 05/17/25 13:00 05/17/25 13:00 05/17/25 12:00 05/17/25 13:27
Lab Results
05/17/25 02:24
05/17/25 02:24
Chest - dec bilaterally
Chest tube w/o air leak. Min output
--- NOTE | 2025-05-17 14:39 | W.PN.HOSP.TC ---
Today's Communication/Plan
-
Waterseal
Anticipate CT removal
wean o2 as tolerated
pain Control
Assessment / Plan
Assessment / Plan
69yo F with PMHx of anxiety, COPD, DM, chronic back pain, CKD stage 3b, Hx of CVA, lung CA s/p minimally invasive wedge resection for Stage IA right lower lobe lung cancer on 04/15/2025 with hemothorax complications afterwards, DVT and pulmonary
embolism on ELiquis, HFpEF, was sent to rehab 5 days prior to admission and developed worsening dyspnea with R chest pain and hypoxia, in ED found significant R sided hemothorax with possible pneumonia s/p chest tube on 05/11/25, IVC filter on
05/12/25 and s/p hematoma evacuation by on 05/14/25 remained intubated for lung reexpansion
A/P
#Acute hypoxic respiratory failure 2/2 #R sided hemothorax with mediastinal shift most likely 2/2 Eliquis postOP 2/2 lung CA
� Now on 1 L
�Extubated 05/16 to nasal cannula
�Wean O2 as tolerated, O2 goal greater than 92%
�Hold Eliquis
-chest tube to water seal; plan to remove CT if continues to do well
-pain resolved with depressurizing R lung
-Pulmonary consult
-Chest surgery consult: plan for hematoma evacuation on 05/14/25, remained intubated for lung reinflation postOP�extubated 05/16
-Follow Hgb, transfuse as needed to keep Hgb >7
--Pleural fluid cultures negative, discontinue antibiotics
-PT/OT
#Recent Acute DVT and PE
-s/p IVC filter on 05/12/25
-LE US w/o DVT
-Not a candidate for anticoagulation due to recurrent hemothorax
-normal RV function on TTE on 05/11/25
#Hypotension
IVF, transfuse PRBC to keep Hgb close to 8
follow BP trend
#Chronic HFpEF
#Essential HTN
not in exacerbation
Hold lasix and BP meds
#COPD not in exacerbation
cont bronchodilators
Pleural fluid cultures negative, discontinue antibiotics
#Chronic back pain 2/2 DJD s/p Sx
cont home regimen
PT/OT
#Stage 2 left medial buttock pressure injury, POA
Wound care
#CKD stage 3b
Cr stable 1.4-1.5
follow Cr
#DM type 2 with nephropathy
Accuchecks, Insulin SS, hold bolus while NPO
DM diet when ready
Acute blood loss anemia
Secondary to hemothorax, exacerbated with anticoagulation
Hemoglobin stable
Monitor off anticoagulation
#2 cm low-density lesion in the superior right lobe the liver
hemangioma as per radiologist
#History of non-small cell lung cancer
- S/p minimally invasive right lower lobe wedge resection by Dr. Banuelos on 04/15/2025
- Resume outpatient follow-up
#Benign thyroid nodule
stable since 2009
DVT ppx SCDs
Full code
Anticipated Discharge: > 48 hours
Subjective/Interval History
-
Date of Service: May 17, 2025
Doing well on waterseal, no active bleeding noted. Minimal chest output
Objective Data
-
Labs:
Laboratory Results
05/17/25
02:24
WBC 8.9
Hgb 9.0 L
Hct 29.3 L
Plt Count 235
Sodium 139
Potassium 4.1
Chloride 105
Carbon Dioxide 30
BUN 20 H
Creatinine 0.9
Glucose 89
Calcium 8.8
Vital Signs:
Vital Signs
Temp Pulse Resp BP Pulse Ox
98.0 F 66 19 136/71 94
05/17/25 12:18 05/17/25 13:00 05/17/25 13:00 05/17/25 12:00 05/17/25 13:27
I&O
05/16/25 05/17/25 05/18/25
06:59 06:59 06:59
Intake Total 1409.2 / 1471.3 1271.7 / 1391.7 600 / 600
Output Total 1999 / 1999 835 / 1095 910 / 910
Balance -590.8 / -528.7 436.7 / 296.7 -310 / -310
Review of Systems
-
History Source: Patient
All other systems: Not reviewed unless documented
Data Reviewed
-
Total Time Spent with Patient (in minutes): 55
Diagnostic Radiology: Report Reviewed by me
CT Scan: Report Reviewed by me
Labs: Labs Reviewed by me
--- NOTE | 2025-05-17 15:29 | CM ---
CM reviewed chart- ADC >48 hours
Anticipate chest tube removal prior to dc
PT/OT evals ordered and pending
Discharge Disposition- TBD
--- NOTE | 2025-05-17 15:32 | PTCARENOTE ---
patient assisted out of bed, see prn administration for pain management. poor po intake. oxyge n weaned to 0.5 liters, however desaturation to 82 with exertion. oxygen increased to 1 liter. call vidal in reach
[2025-05-17 17:07] LABS: Glucose - Point of Care 148 mg/dl (70-99)
[2025-05-17] MEDS: COLACE PO (19:33)
[2025-05-17] MEDS: SENOKOT PO (19:34)
[2025-05-17] MEDS: REMOVE LIDOCAINE PATCH 1 PATCH REMOVE (19:44)
--- NOTE | 2025-05-17 19:45 | PTCARENOTE ---
Assumed care of patient. Patient is resting in bed, alert and oriented x3, afebrile, moves all extremities and follows commands. She is on 2L NC, lungs are diminished on the right side, and left upper lobe. She complains of shortness of breath with
movement and activity. She is in normal sinus rhythm, no edema noted on exam. Pulses are palpable. Abdomen is obese, soft, non-tender, bowel sounds are hyperactive. Patient has external female catheter in place. Chest tube site has dressing intact,
dry. IV sites are c/d/i.
[2025-05-17] MEDS: LIPITOR 80 MG PO (21:52)
[2025-05-17] MEDS: LANTUS 0.1 UNITS SC (21:59)
[2025-05-17 22:00] LABS: Glucose - Point of Care 160 mg/dl (70-99)
--- NOTE | 2025-05-17 23:13 | PTCARENOTE ---
Received Pt as transfer from ICU. Pt AAOx3 able to make needs known. Pt arrived with right Ct to waterseal, site dry and intact. Pt has no complaints at this time. Call vidal within reach. Bed in lowest position.
[2025-05-18] VITALS (15 sets, daily range): BP systolic 121–148; BP diastolic 52–72; PULSE 90–93; O2SAT 96
[2025-05-18] MEDS: TYLENOL PO ×2 (00:36→16:20)
[2025-05-18] MEDS: DILAUDID 1 MG IV ×3 (00:53→08:58)
[2025-05-18] MEDS: TYLENOL 1000 MG PO ×3 (04:21→22:59)
[2025-05-18 05:21] LABS: Hematocrit 29.1 % (37.0-47.0); Hemoglobin 9.1 g/dL (12.0-16.0); Mean Corp Hgb Conc. 31.3 g/dL (33.0-37.0); Mean Corpuscular Volume 95.7 fL (81.0-99.0); Platelet Count 236 10^3/uL (130-400); Red Cell Dist. Width 17.4 % (11.5-14.5)
[2025-05-18 05:48] LABS: ALT (SGPT) < 10 U/L (0-35); AST (SGOT) 12 U/L (14-36); Albumin 2.8 g/dl (3.5-5.0); Alkaline Phosphatase 52 U/L (38-126); Blood Urea Nitrogen 15 mg/dl (7-17); Calcium 8.9 mg/dl (8.4-10.2); Carbon Dioxide 29 mmol/L (22-30); Chloride 104 mmol/L (98-107); Estimated Creatinine Clearance 69 ml/min; Glucose 101 mg/dl (70-99); Potassium 4.0 mmol/L (3.5-5.1); Sodium 137 mmol/L (135-145); Total Protein 5.3 g/dl (6.3-8.2); eGFR > 60.00
--- NOTE | 2025-05-18 06:06 | DOWNTIME ---
There was a [employer] Downtime on 05/18/2025 from 0100 to 05/18/2025 at 0255. Downtime documentation of patient's care, including medication administrations, has been reconciled in the electronic record per guidelines. Refer to the
patient's paper chart under the miscellaneous tab to see printed paper medication records and downtime forms.
[2025-05-18] MEDS: ADVAIR HFA 115/21 MCG INHALER 2 PUFF INH ×2 (07:10→19:14)
[2025-05-18] MEDS: DUONEB 3 ML INH ×4 (07:10→19:14)
[2025-05-18 07:30] LABS: Glucose - Point of Care 112 mg/dl (70-99)
[2025-05-18] MEDS: ZOFRAN 4 MG IV (08:57)
[2025-05-18] MEDS: MUCINEX 600 MG PO ×2 (08:57→19:54)
[2025-05-18] MEDS: MS CONTIN (EXTENDED RELEASE) 30 MG PO ×2 (08:57→19:54)
[2025-05-18] MEDS: LIDOCAINE 4% PATCH 1 PATCH TOPICAL (08:58)
[2025-05-18] MEDS: DESENEX/MITRAZOL/ZEASORB 1 APPLIC TOPICAL ×2 (08:59→19:55)
[2025-05-18] MEDS: NOVOLOG FLEXPEN-LOW RESISTANCE SC ×2 (08:59→12:49)
--- NOTE | 2025-05-18 09:18 | PTCARENOTE ---
Received report from manager shift. Patient has right lateral chest tube to water seal. Dressing C/D/I. Lungs diminished with scattered expiratory wheezing. Patient pulse ox 93% on 2L o2. Patient AAOX3, anxious at times. Patient reports pain 0f
10/[address] Patient reports pain is worse with coughing. Medicating with IV dilauded as ordered. Non-productive moist cough noted. VS stable. Will continue to monitor frequently.
--- NOTE | 2025-05-18 09:19 | W.PN.PUL.V3 ---
Today's Communication / Plan
-
Wean oxygen
Increase activity
Monitor chest tube output
Follow chest x-ray
Chest tube per Dr. Banuelos
Consider transfer to telemetry-pulmonary will continue to follow
Assessment
-
69-year-old female with a past medical history of left upper lobe stage Ib lung cancer s/p resection (2022), right lower lobe squamous cell carcinoma s/p wedge resection on 04/15/2025, DM type II, hypertension, brain aneurysm s/p clipping, bilateral
distal DVT (diagnosed 04/25/2025) and history of CVA who presented with shortness of breath. Patient was initially hypotensive to 86/62, saturating 93% on 4 L/min, breathing at 20 breaths/min with pulse rate 93. She has remained afebrile. Initial
labs showed leukocytosis to 21.3, Hb 9.7, absolute eosinophil count: 300, lactate 3.6, and COVID-19 negative. Patient found to have a large right-sided pleural effusion with mediastinal shifting from right to left as well as hemorrhage in the right
posterior lung. In the ER she was given 250 cc bolus of NS 0.9%, cefepime, vancomycin, Zofran, Dilaudid, and morphine, and a PERT alert was called. Case discussed amongst myself in addition to IR and thoracic oncology, Dr. Banuelos, and the PE is not
the main pathology causing her shortness of breath + hypoxia. The main issue is her large right-sided pleural effusion which is causing mediastinal shift. Chest tube recommended and IR inserted a 20 Gambian Thal-Quick chest tube with initially
almost no return with clots being pulled through the tube initially with manual aspiration performed. Because of this, the catheter was exchanged for a 16 Gambian pigtail catheter with the pigtail maneuvered in an effort to disrupt some of the
loculations of the complex effusion, and this allowed improved drainage with a more inferior position of the catheter. There were no immediate complications and the patient was transferred to the ICU for further care with industrial automation specialist/pulmonary
service consulted for additional management/recommendations.
Assessment
Right hemothorax with mediastinal shift
Hypoxemic respiratory failure status post mechanical ventilation-intubated 05/14 for thoracotomy and extubated 05/16/2025
History of non-small cell lung cancer
Acute bilateral pulm emboli with right ventricular strain status post IVC filter placement 05/12/2025
Anemia related to acute blood loss
Chronic pain
Plan
Respiratory status slowly improving
Supplemental oxygen as needed-currently on 2 L - 97% saturation
Incentive spirometry
Mucus clearing devices
Nebulizers as needed-on DuoNebs
Advair continues
Aspiration precautions
Monitor chest tube output-placed 05/12/2025
Status post right thoracoscopy with minithoracotomy, decortication and evacuation of hematoma by Dr. Banuelos
Chest tube per Dr. Francisco
Chest x-ray 05/18/2025-unchanged right chest tube position, opacification right chest suggest pulmonary effusion and/or hemorrhage without significant change, no pneumothorax
Observe off anticoagulation
Pleural fluid cultures negative-antibiotics discontinued
History of non-small cell lung cancer
KRAS positive, PD-L1 expression 1%. S/p minimally invasive right lower lobe wedge resection by Dr. Banuelos on 04/15/2025
Resume outpatient follow-up
Bilateral pulm emboli with right ventricular strain suspect related to lung cancer as well as recent hospitalization and surgeries
Patient had been on Eliquis-discontinued and in view of right sided hemothorax
IVC filter placement 05/12/2025
Monitor hemoglobin-currently 9.1
Transfuse as needed
Monitor blood sugar
Insulin supplementation as needed
Mucinex continues
Analgesia by primary service and surgery
Patient has been on MS Contin 30 mg p.o. twice daily, resumed
Dilaudid on an as needed for breakthrough pain
Anticipate pain will improve once chest tube has been removed
DVT prophylaxis-mechanical
Nutrition
Early mobilization/PT/OT
Reviewed with nursing
Stable for transfer to telemetry-pulmonary will continue to follow
Subjective Data
-
Date of Service:
Date of Service: May 18, 2025
Chief Complaint: Pulmonary Follow Up and Dyspnea Follow Up
Subjective:
Complains of some mild dyspnea, no chest pain with exception of the chest tube site pain, no chest congestion or productive cough, no abdominal pain
Review of Systems
General: Other (Per HPI)
Objective Data
Data Reviewed
Vital Signs / I&O:
Vital Signs
Temp Pulse Resp BP Pulse Ox
97.9 F 78 16 127/60 96
05/18/25 07:26 05/18/25 07:19 05/18/25 07:19 05/18/25 06:00 05/18/25 07:19
Intake and Output
05/17/25 05/18/25 05/19/25
06:59 06:59 06:59
Intake Total 1271.7 / 1391.7 1320 / 1320
Output Total 835 / 1095 1625 / 1625
Balance 436.7 / 296.7 -305 / -305
SaO2: 96
Nasal Cannula flow liters per minute: 2
Physical Exam
General: Respiratory Distress (n) and Comfortable
HEENT: Normocephalic, Anicteric and Moist Mucous Membranes
Cardiovascular: Regular Rhythm
Respiratory: Crackles (Basilar), Rhonchi (Few expiratory), Non-Labored Respirations, Accessory Resp Muscle Use (n) and Chest Tube
GI: Soft, Non Distended and Non Tender
Neurology: Awake, Alert and No Motor Deficits
Skin: Warm, Good Color, Cyanosis (n), Jaundice (n) and Rash (n)
Labs/Micro/Reports
Lab Data
05/18/25 04:50
05/18/25 04:50
Microbiology
05/11/25 15:30 Blood/Venous Blood Culture - Final
No Growth - Final Report
05/11/25 14:29 Blood/Venous Blood Culture - Final
No Growth - Final Report
05/12/25 13:10 Pleural Fluid Fungal Culture - Preliminary
Culture in progress.
Positive cultures are reported as soon as detected.
Final report to follow in four to five weeks.
05/12/25 13:10 Pleural Fluid Acid Fast Bacilli Smear - Preliminary
05/12/25 13:10 Pleural Fluid Acid Fast Bacilli Culture - Preliminary
05/12/25 13:10 Pleural Fluid Body Fluid Culture - Final
No Growth After 72 Hours
05/12/25 13:10 Pleural Fluid Gram Stain - Final
[2025-05-18] MEDS: NOVOLOG FLEXPEN 6 UNITS SC ×2 (10:33→18:09)
--- NOTE | 2025-05-18 10:35 | CM ---
F/U: GOMEZ Eaton spoke to patient about SNF, she is interested, but DOES NOT WANT TO RETURN TO [place]. GOMEZ Eaton spoke to Mr. Zazueta who provided several other facilities so referrals were made. The facilities have to accept the insurance
and authoriztion will need to be started. PLAN: SNF when ready.
[2025-05-18] MEDS: COLACE PO (12:17)
[2025-05-18] MEDS: SENOKOT PO (12:17)
[2025-05-18] MEDS: MIRALAX PO (12:17)
[2025-05-18 12:42] LABS: Glucose - Point of Care 126 mg/dl (70-99)
[2025-05-18] MEDS: ZETIA 10 MG PO (12:49)
--- NOTE | 2025-05-18 13:58 | W.PN.HOSP.TC ---
Today's Communication/Plan
-
Pain regimen
anticipate CT removal tomorrow
wean o2
Assessment / Plan
Assessment / Plan
69yo F with PMHx of anxiety, COPD, DM, chronic back pain, CKD stage 3b, Hx of CVA, lung CA s/p minimally invasive wedge resection for Stage IA right lower lobe lung cancer on 04/15/2025 with hemothorax complications afterwards, DVT and pulmonary
embolism on ELiquis, HFpEF, was sent to rehab 5 days prior to admission and developed worsening dyspnea with R chest pain and hypoxia, in ED found significant R sided hemothorax with possible pneumonia s/p chest tube on 05/11/25, IVC filter on
05/12/25 and s/p hematoma evacuation by on 05/14/25 remained intubated for lung reexpansion
A/P
#Acute hypoxic respiratory failure 2/2 #R sided hemothorax with mediastinal shift most likely 2/2 Eliquis postOP 2/2 lung CA
� Now on 1-2 L
�Extubated 05/16 to nasal cannula
�Wean O2 as tolerated, O2 goal greater than 92%
�Hold Eliquis
-chest tube to water seal; plan to remove CT if continues to do well
-pain resolved with depressurizing R lung
-Pulmonary consult
-Chest surgery consult: plan for hematoma evacuation on 05/14/25, remained intubated for lung reinflation postOP�extubated 05/16
-Follow Hgb, transfuse as needed to keep Hgb >7
--Pleural fluid cultures negative, discontinue antibiotics
-PT/OT
#Recent Acute DVT and PE
-s/p IVC filter on 05/12/25
-LE US w/o DVT
-Not a candidate for anticoagulation due to recurrent hemothorax
-normal RV function on TTE on 05/11/25
#Hypotension
IVF, transfuse PRBC to keep Hgb close to 8
follow BP trend
#Chronic HFpEF
#Essential HTN
not in exacerbation
Hold lasix and BP meds
#COPD not in exacerbation
cont bronchodilators
Pleural fluid cultures negative, discontinue antibiotics
#Chronic back pain 2/2 DJD s/p Sx
cont home regimen
PT/OT
#Stage 2 left medial buttock pressure injury, POA
Wound care
#CKD stage 3b
Cr stable 1.4-1.5
follow Cr
#DM type 2 with nephropathy
Accuchecks, Insulin SS, hold bolus while NPO
DM diet when ready
Acute blood loss anemia
Secondary to hemothorax, exacerbated with anticoagulation
Hemoglobin stable
Monitor off anticoagulation
#2 cm low-density lesion in the superior right lobe the liver
hemangioma as per radiologist
#History of non-small cell lung cancer
- S/p minimally invasive right lower lobe wedge resection by Dr. Banuelos on 04/15/2025
- Resume outpatient follow-up
#Benign thyroid nodule
stable since 2009
DVT ppx SCDs
Full code
Anticipated Discharge: 24 - 48 hours
Subjective/Interval History
-
Date of Service: May 18, 2025
worsened pain at chest tube site today
Objective Data
-
Labs:
Laboratory Results
05/18/25
04:50
WBC 9.1
Hgb 9.1 L
Hct 29.1 L
Plt Count 236
Sodium 137
Potassium 4.0
Chloride 104
Carbon Dioxide 29
BUN 15
Creatinine 0.8
Glucose 101 H
Calcium 8.9
Total Bilirubin 0.5
AST 12 L
ALT < 10
Alkaline Phosphatase 52
Vital Signs:
Vital Signs
Temp Pulse Resp BP Pulse Ox
98.5 F 91 16 127/60 92
05/18/25 12:52 05/18/25 11:14 05/18/25 11:14 05/18/25 06:00 05/18/25 11:14
I&O
05/17/25 05/18/25 05/19/25
06:59 06:59 06:59
Intake Total 1271.7 / 1391.7 1320 / 1320 380 / 380
Output Total 835 / 1095 1625 / 1625 340 / 340
Balance 436.7 / 296.7 -305 / -305 40 / 40
Review of Systems
-
History Source: Patient
All other systems: Not reviewed unless documented
Data Reviewed
-
Total Time Spent with Patient (in minutes): 55
Diagnostic Radiology: Report Reviewed by me
CT Scan: Report Reviewed by me
Labs: Labs Reviewed by me
[2025-05-18] MEDS: NOVOLOG FLEXPEN SC (16:19)
[2025-05-18] MEDS: DILAUDID 1.5 MG IV ×3 (16:25→23:20)
[2025-05-18] MEDS: FLUSH (NSS) 1 FLUSH IV (16:28)
[2025-05-18] MEDS: NOVOLOG FLEXPEN-LOW RESISTANCE 1 UNITS SC (18:15)
[2025-05-18 18:17] LABS: Glucose - Point of Care 155 mg/dl (70-99)
[2025-05-18] MEDS: SENOKOT 8.6 MG PO (19:54)
[2025-05-18] MEDS: REMOVE LIDOCAINE PATCH 1 PATCH REMOVE (19:55)
[2025-05-18] MEDS: COLACE 100 MG PO (19:55)
[2025-05-18] MEDS: LIPITOR 80 MG PO (23:00)
[2025-05-18 23:01] LABS: Glucose - Point of Care 109 mg/dl (70-99)
[2025-05-18] MEDS: LANTUS 0.1 UNITS SC (23:20)
[2025-05-18 23:22] LABS: Glucose - Point of Care 116 mg/dl (70-99)
[2025-05-19] VITALS (13 sets, daily range): BP systolic 112–149; BP diastolic 52–88
--- NOTE | 2025-05-19 01:17 | PTCARENOTE ---
Assumed care of Pt from day RN. Pt having pain at times, see mar for medication. Pt Chest tube remains to water seal, no air leak, minimal drainage. Call vidal within reach, bed in lowest position. Assessment care and vitals as charted.
[2025-05-19 05:08] LABS: Hematocrit 29.0 % (37.0-47.0); Hemoglobin 9.2 g/dL (12.0-16.0); Mean Corp Hgb Conc. 31.7 g/dL (33.0-37.0); Mean Corpuscular Volume 95.1 fL (81.0-99.0); Platelet Count 253 10^3/uL (130-400); Red Cell Dist. Width 16.8 % (11.5-14.5)
[2025-05-19 05:31] LABS: ALT (SGPT) < 10 U/L (0-35); AST (SGOT) 15 U/L (14-36); Albumin 2.7 g/dl (3.5-5.0); Alkaline Phosphatase 52 U/L (38-126); Blood Urea Nitrogen 15 mg/dl (7-17); Calcium 8.9 mg/dl (8.4-10.2); Carbon Dioxide 30 mmol/L (22-30); Chloride 104 mmol/L (98-107); Estimated Creatinine Clearance 69 ml/min; Glucose 95 mg/dl (70-99); Potassium 4.2 mmol/L (3.5-5.1); Sodium 137 mmol/L (135-145); Total Protein 5.5 g/dl (6.3-8.2); eGFR > 60.00
[2025-05-19] MEDS: TYLENOL 1000 MG PO ×4 (05:34→22:36)
[2025-05-19] MEDS: DILAUDID 1.5 MG IV ×3 (05:34→12:41)
[2025-05-19] MEDS: DUONEB 3 ML INH ×4 (07:10→18:29)
[2025-05-19] MEDS: ADVAIR HFA 115/21 MCG INHALER 2 PUFF INH ×2 (07:10→18:26)
--- NOTE | 2025-05-19 07:30 | PTCARENOTE ---
Received pt after shift handoff. Pt remains AAOx3. On 2L oxygen, saturating at 96%. No respiratory distress observed. Check tube is intact and maintained on water seal. No air leaked observed. Minimal drainage noted in the collection chamber.
Patient resting comfortably. Call vidal within reach.
[2025-05-19 08:05] LABS: Glucose - Point of Care 139 mg/dl (70-99)
--- NOTE | 2025-05-19 08:57 | W.PN.PUL.V3 ---
Today's Communication / Plan
-
Wean FiO2
Increase mucolytics
Follow chest x-ray
Potential chest tube removal
Increase activity
Assessment
-
69-year-old female with a past medical history of left upper lobe stage Ib lung cancer s/p resection (2022), right lower lobe squamous cell carcinoma s/p wedge resection on 04/15/2025, DM type II, hypertension, brain aneurysm s/p clipping, bilateral
distal DVT (diagnosed 04/25/2025) and history of CVA who presented with shortness of breath. Patient was initially hypotensive to 86/62, saturating 93% on 4 L/min, breathing at 20 breaths/min with pulse rate 93. She has remained afebrile. Initial
labs showed leukocytosis to 21.3, Hb 9.7, absolute eosinophil count: 300, lactate 3.6, and COVID-19 negative. Patient found to have a large right-sided pleural effusion with mediastinal shifting from right to left as well as hemorrhage in the right
posterior lung. In the ER she was given 250 cc bolus of NS 0.9%, cefepime, vancomycin, Zofran, Dilaudid, and morphine, and a PERT alert was called. Case discussed amongst myself in addition to IR and thoracic oncology, Dr. Banuelos, and the PE is not
the main pathology causing her shortness of breath + hypoxia. The main issue is her large right-sided pleural effusion which is causing mediastinal shift. Chest tube recommended and IR inserted a 20 Uzbek Thal-Quick chest tube with initially
almost no return with clots being pulled through the tube initially with manual aspiration performed. Because of this, the catheter was exchanged for a 16 Uzbek pigtail catheter with the pigtail maneuvered in an effort to disrupt some of the
loculations of the complex effusion, and this allowed improved drainage with a more inferior position of the catheter. There were no immediate complications and the patient was transferred to the ICU for further care with urban anthropologist/pulmonary
service consulted for additional management/recommendations.
Assessment
Right hemothorax with mediastinal shift
Hypoxemic respiratory failure status post mechanical ventilation-intubated 05/14 for thoracotomy and extubated 05/16/2025
History of non-small cell lung cancer
Acute bilateral pulm emboli with right ventricular strain status post IVC filter placement 05/12/2025
Anemia related to acute blood loss
Chronic pain
Plan
Respiratory status slowly improving
Supplemental oxygen as needed-currently on 2 L - 97% saturation
Incentive spirometry encouraged
Mucus clearing devices
Nebulizers as needed-on DuoNebs
Mucinex-Will increase dose
Add saline nebulizers
Advair continues
Aspiration precautions
Monitor chest tube output-placed 05/12/2025-60 mL on 05/17/2025 and 75 mL 05/18/2025
Status post right thoracoscopy with minithoracotomy, decortication and evacuation of hematoma by Dr. Banuelos
Chest tube per Dr. Francisco-potential removal 05/19/2025
Chest x-ray 05/18/2025-unchanged right chest tube position, opacification right chest suggest pulmonary effusion and/or hemorrhage without significant change, no pneumothorax
No chest x-ray ordered for 05/19/2025
Observe off anticoagulation
Pleural fluid cultures negative-antibiotics discontinued
History of non-small cell lung cancer
KRAS positive, PD-L1 expression 1%. S/p minimally invasive right lower lobe wedge resection by Dr. Banuelos on 04/15/2025
Resume outpatient follow-up
Bilateral pulm emboli with right ventricular strain suspect related to lung cancer as well as recent hospitalization and surgeries
Patient had been on Eliquis-discontinued and in view of right sided hemothorax
IVC filter placement 05/12/2025
Monitor hemoglobin-currently 9.1
Transfuse as needed
Monitor blood sugar
Insulin supplementation as needed
Analgesia by primary service and surgery
Patient has been on MS Contin 30 mg p.o. twice daily, resumed
Dilaudid on an as needed for breakthrough pain
Anticipate pain will improve once chest tube has been removed
DVT prophylaxis-mechanical
Nutrition
Early mobilization/PT/OT
Reviewed with nursing
Stable for transfer to telemetry-pulmonary will continue to follow
Subjective Data
-
Date of Service:
Date of Service: May 19, 2025
Chief Complaint: Pulmonary Follow Up and Dyspnea Follow Up
Subjective:
Feels about the same, has chest tube site pain, difficulties mobilizing secretions, out of bed yesterday, no other chest pain or abdominal pain
Review of Systems
General: Other (Per HPI)
Objective Data
Data Reviewed
Vital Signs / I&O:
Vital Signs
Temp Pulse Resp BP Pulse Ox
97.4 F 77 16 118/58 96
05/19/25 07:22 05/19/25 07:17 05/19/25 07:17 05/19/25 06:00 05/19/25 08:00
Intake and Output
05/18/25 05/19/25 05/20/25
06:59 06:59 06:59
Intake Total 1320 / 1320 1640 / 1640
Output Total 1625 / 1625 1200 / 1200
Balance -305 / -305 440 / 440
SaO2: 96
Nasal Cannula flow liters per minute: 2
Physical Exam
General: Respiratory Distress (n) and Comfortable
HEENT: Normocephalic, Anicteric and Moist Mucous Membranes
Cardiovascular: Regular Rhythm
Respiratory: Crackles (Basilar), Rhonchi (Few expiratory), Non-Labored Respirations, Accessory Resp Muscle Use (n) and Chest Tube
GI: Soft, Non Distended and Non Tender
Neurology: Awake, Alert and No Motor Deficits
Skin: Warm, Good Color, Cyanosis (n), Jaundice (n) and Rash (n)
Labs/Micro/Reports
Lab Data
05/19/25 04:54
05/19/25 04:54
Microbiology
05/11/25 15:30 Blood/Venous Blood Culture - Final
No Growth - Final Report
05/11/25 14:29 Blood/Venous Blood Culture - Final
No Growth - Final Report
05/12/25 13:10 Pleural Fluid Fungal Culture - Preliminary
Culture in progress.
Positive cultures are reported as soon as detected.
Final report to follow in four to five weeks.
[2025-05-19] MEDS: NOVOLOG FLEXPEN 6 UNITS SC ×2 (08:59→18:13)
[2025-05-19] MEDS: NOVOLOG FLEXPEN-LOW RESISTANCE SC ×2 (09:00→12:40)
[2025-05-19] MEDS: COLACE 100 MG PO ×2 (09:01→20:25)
[2025-05-19] MEDS: DESENEX/MITRAZOL/ZEASORB 1 APPLIC TOPICAL ×2 (09:02→19:32)
[2025-05-19] MEDS: LIDOCAINE 4% PATCH 1 PATCH TOPICAL (09:03)
[2025-05-19] MEDS: MS CONTIN (EXTENDED RELEASE) 30 MG PO ×2 (09:04→20:25)
[2025-05-19] MEDS: MIRALAX 17 GRAMS PO (09:04)
[2025-05-19] MEDS: SENOKOT 8.6 MG PO ×2 (09:06→20:26)
[2025-05-19] MEDS: MUCINEX PO (09:46)
[2025-05-19] MEDS: MUCINEX 1200 MG PO ×2 (10:01→20:25)
--- NOTE | 2025-05-19 11:56 | CM ---
F/U: Hospitalist stated today chest tube likely pulled tomorrow and have to see about her pain management. There are 2 accepting facilities for SNF: [facility] & [facility]- both accept over the weekend. GOMEZ Eaton spoke to Narciso, he wants his
daughters to tour both by today into probably tomorrow ('because Jorge almost killed her'), then decide which is #1 and #2. Mr. Zazueta is aware that he will get a call from GOMEZ Eaton's coverage tomorrow on his choice then check with Hospitalist
to see if ready on Friday, if so, coverage will call these two to see if there is a bed, then start insurance authorization for DC on Friday. PLAN: SNF to either [facility] or [facility] with Insurance Authorization.
[2025-05-19 12:01] LABS: Glucose - Point of Care 136 mg/dl (70-99)
[2025-05-19] MEDS: NOVOLOG FLEXPEN SC (12:40)
[2025-05-19] MEDS: ZETIA 10 MG PO (12:41)
--- NOTE | 2025-05-19 14:00 | W.PN.HOSP.TC ---
Today's Communication/Plan
-
Removal of CT, Care per CTS
3% Hypertonic Saline nebs
Resume Lasix
Wean pain regimen
Assessment / Plan
Assessment / Plan
69yo F with PMHx of anxiety, COPD, DM, chronic back pain, CKD stage 3b, Hx of CVA, lung CA s/p minimally invasive wedge resection for Stage IA right lower lobe lung cancer on 04/15/2025 with hemothorax complications afterwards, DVT and pulmonary
embolism on ELiquis, HFpEF, was sent to rehab 5 days prior to admission and developed worsening dyspnea with R chest pain and hypoxia, in ED found significant R sided hemothorax with possible pneumonia s/p chest tube on 05/11/25, IVC filter on
05/12/25 and s/p hematoma evacuation by on 05/14/25 remained intubated for lung reexpansion
A/P
#Acute hypoxic respiratory failure 2/2 #R sided hemothorax with mediastinal shift most likely 2/2 Eliquis postOP 2/2 lung CA
� Now on 1-2 L
�Extubated 05/16 to nasal cannula
�Wean O2 as tolerated, O2 goal greater than 92%
�Hold Eliquis
-Remove CT today
-pain resolved with depressurizing R lung
-Pulmonary consult
-Chest surgery consult: plan for hematoma evacuation on 05/14/25, remained intubated for lung reinflation postOP�extubated 05/16
-Follow Hgb, transfuse as needed to keep Hgb >7
--Pleural fluid cultures negative, discontinue antibiotics
-PT/OT
-Wean Pain regimen
#Recent Acute DVT and PE
-s/p IVC filter on 05/12/25
-LE US w/o DVT
-Not a candidate for anticoagulation due to recurrent hemothorax
-normal RV function on TTE on 05/11/25
#Hypotension
IVF, transfuse PRBC to keep Hgb close to 8
follow BP trend
#Chronic HFpEF
#Essential HTN
not in exacerbation
resume lasix
-Hold BP meds
#COPD not in exacerbation
cont bronchodilators
Pleural fluid cultures negative, discontinue antibiotics
#Chronic back pain 2/2 DJD s/p Sx
cont home regimen
PT/OT
#Stage 2 left medial buttock pressure injury, POA
Wound care
#CKD stage 3b
Cr stable 1.4-1.5
follow Cr
Resume lasix and monitor
#DM type 2 with nephropathy
Accuchecks, Insulin SS, hold bolus while NPO
DM diet when ready
Acute blood loss anemia
Secondary to hemothorax, exacerbated with anticoagulation
Hemoglobin stable
Monitor off anticoagulation
#2 cm low-density lesion in the superior right lobe the liver
hemangioma as per radiologist
#History of non-small cell lung cancer
- S/p minimally invasive right lower lobe wedge resection by Dr. Banuelos on 04/15/2025
- Resume outpatient follow-up
#Benign thyroid nodule
stable since 2009
DVT ppx SCDs
Full code
Anticipated Discharge: 24 - 48 hours
Subjective/Interval History
-
Date of Service: May 19, 2025
has chest tube site pain - improved with increased medications yesterday
difficulties mobilizing secretions
ambulating
Objective Data
-
Labs:
Laboratory Results
05/19/25
04:54
WBC 9.5
Hgb 9.2 L
Hct 29.0 L
Plt Count 253
Sodium 137
Potassium 4.2
Chloride 104
Carbon Dioxide 30
BUN 15
Creatinine 0.8
Glucose 95
Calcium 8.9
Total Bilirubin 0.6
AST 15
ALT < 10
Alkaline Phosphatase 52
Vital Signs:
Vital Signs
Temp Pulse Resp BP Pulse Ox
97.8 F 81 16 126/62 94
05/19/25 11:00 05/19/25 11:33 05/19/25 11:33 05/19/25 10:00 05/19/25 11:33
I&O
05/18/25 05/19/25 05/20/25
06:59 06:59 06:59
Intake Total 1320 / 1320 1640 / 1640
Output Total 1625 / 1625 1200 / 1200
Balance -305 / -305 440 / 440
Review of Systems
-
History Source: Patient
All other systems: Not reviewed unless documented
Data Reviewed
-
Total Time Spent with Patient (in minutes): 55
Diagnostic Radiology: Report Reviewed by me
CT Scan: Report Reviewed by me
Labs: Labs Reviewed by me
[2025-05-19] MEDS: LASIX 80 MG PO (14:43)
[2025-05-19 17:25] LABS: Glucose - Point of Care 159 mg/dl (70-99)
[2025-05-19] MEDS: DILAUDID 0.5 MG IV ×2 (17:51→19:28)
[2025-05-19] MEDS: NOVOLOG FLEXPEN-LOW RESISTANCE 1 UNITS SC (18:13)
[2025-05-19] MEDS: SODIUM CHLORIDE 3% FOR INHALATION 1 VIAL INH (18:30)
--- NOTE | 2025-05-19 19:03 | W.PN.SURGUPD ---
Surgical Update
Surgical Update
The right chest tube without air leak and minimal output. Also, her CXRs remain stable
The chest tube removed without any problems.
Will check CXR.
[2025-05-19] MEDS: REMOVE LIDOCAINE PATCH 1 PATCH REMOVE (19:32)
[2025-05-19] MEDS: LIPITOR 80 MG PO (21:28)
[2025-05-19] MEDS: LANTUS 0.1 UNITS SC (21:29)
[2025-05-19 21:34] LABS: Glucose - Point of Care 148 mg/dl (70-99)
[2025-05-19] MEDS: ZOFRAN 4 MG IV (21:34)
[2025-05-20] VITALS (17 sets, daily range): BP systolic 120–151; BP diastolic 57–88; PULSE 77–87; O2SAT 89–96; BMI 36.6
--- NOTE | 2025-05-20 02:01 | PTCARENOTE ---
Pt c/o pain at prior chest tube site, medicated per AUG. Former chest tube site with minimal drainage visible on bandage. Denies SOB. Maintains 96% on 2L. SR on CM. Q2T schedule in place to prevent further skin breakdown. Call vidal within reach.
Care ongoing.
[2025-05-20] MEDS: DILAUDID 1 MG IV ×3 (02:27→19:52)
[2025-05-20 04:58] LABS: Hematocrit 29.5 % (37.0-47.0); Hemoglobin 9.5 g/dL (12.0-16.0); Mean Corp Hgb Conc. 32.2 g/dL (33.0-37.0); Mean Corpuscular Volume 91.9 fL (81.0-99.0); Platelet Count 258 10^3/uL (130-400); Red Cell Dist. Width 16.7 % (11.5-14.5)
[2025-05-20] MEDS: TYLENOL 1000 MG PO ×4 (05:02→22:08)
[2025-05-20 05:45] LABS: ALT (SGPT) < 10 U/L (0-35); AST (SGOT) 25 U/L (14-36); Albumin 3.0 g/dl (3.5-5.0); Alkaline Phosphatase 48 U/L (38-126); Blood Urea Nitrogen 16 mg/dl (7-17); Calcium 8.8 mg/dl (8.4-10.2); Carbon Dioxide 30 mmol/L (22-30); Chloride 101 mmol/L (98-107); Estimated Creatinine Clearance 69 ml/min; Glucose 85 mg/dl (70-99); Potassium 4.5 mmol/L (3.5-5.1); Sodium 136 mmol/L (135-145); Total Protein 6.0 g/dl (6.3-8.2); eGFR > 60.00
[2025-05-20] MEDS: SODIUM CHLORIDE 3% FOR INHALATION 1 VIAL INH ×2 (07:17→19:33)
[2025-05-20] MEDS: ADVAIR HFA 115/21 MCG INHALER 2 PUFF INH ×2 (07:17→19:33)
[2025-05-20] MEDS: DUONEB 3 ML INH ×4 (07:17→19:33)
--- NOTE | 2025-05-20 08:00 | PTCARENOTE ---
Received pt from previous nurse. Pt AAOx3. VSS. 2L O2 at 98%. Pt resting comfortably. Call vidal within reach.
[2025-05-20 08:08] LABS: Glucose - Point of Care 114 mg/dl (70-99)
[2025-05-20] MEDS: MIRALAX 17 GRAMS PO (08:10)
[2025-05-20] MEDS: LASIX 80 MG PO (08:10)
[2025-05-20] MEDS: LIDOCAINE 4% PATCH 1 PATCH TOPICAL (08:10)
[2025-05-20] MEDS: MUCINEX 1200 MG PO ×2 (08:10→19:51)
[2025-05-20] MEDS: SENOKOT 8.6 MG PO ×2 (08:11→19:51)
[2025-05-20] MEDS: COLACE 100 MG PO ×2 (08:11→19:51)
[2025-05-20] MEDS: MS CONTIN (EXTENDED RELEASE) 30 MG PO ×2 (08:11→19:51)
[2025-05-20] MEDS: DESENEX/MITRAZOL/ZEASORB 1 APPLIC TOPICAL ×2 (08:13→21:19)
[2025-05-20] MEDS: NOVOLOG FLEXPEN 6 UNITS SC ×3 (08:38→17:27)
[2025-05-20] MEDS: NOVOLOG FLEXPEN-LOW RESISTANCE SC ×2 (08:39→13:37)
--- NOTE | 2025-05-20 09:16 | W.PN.PUL.V3 ---
Today's Communication / Plan
-
Wean oxygen
Continue nebulizers-DuoNebs and saline
Advair continues
Add systemic steroids with significant wheezing today
Gentle diuresis
Assessment
-
69-year-old female with a past medical history of left upper lobe stage Ib lung cancer s/p resection (2022), right lower lobe squamous cell carcinoma s/p wedge resection on 04/15/2025, DM type II, hypertension, brain aneurysm s/p clipping, bilateral
distal DVT (diagnosed 04/25/2025) and history of CVA who presented with shortness of breath. Patient was initially hypotensive to 86/62, saturating 93% on 4 L/min, breathing at 20 breaths/min with pulse rate 93. She has remained afebrile. Initial
labs showed leukocytosis to 21.3, Hb 9.7, absolute eosinophil count: 300, lactate 3.6, and COVID-19 negative. Patient found to have a large right-sided pleural effusion with mediastinal shifting from right to left as well as hemorrhage in the right
posterior lung. In the ER she was given 250 cc bolus of NS 0.9%, cefepime, vancomycin, Zofran, Dilaudid, and morphine, and a PERT alert was called. Case discussed amongst myself in addition to IR and thoracic oncology, Dr. Banuelos, and the PE is not
the main pathology causing her shortness of breath + hypoxia. The main issue is her large right-sided pleural effusion which is causing mediastinal shift. Chest tube recommended and IR inserted a 20 Maori Thal-Quick chest tube with initially
almost no return with clots being pulled through the tube initially with manual aspiration performed. Because of this, the catheter was exchanged for a 16 Maori pigtail catheter with the pigtail maneuvered in an effort to disrupt some of the
loculations of the complex effusion, and this allowed improved drainage with a more inferior position of the catheter. There were no immediate complications and the patient was transferred to the ICU for further care with weed cooking operator/pulmonary
service consulted for additional management/recommendations.
Assessment
Right hemothorax with mediastinal shift
Hypoxemic respiratory failure status post mechanical ventilation-intubated 05/14 for thoracotomy and extubated 05/16/2025
History of non-small cell lung cancer
Acute bilateral pulm emboli with right ventricular strain status post IVC filter placement 05/12/2025
Anemia related to acute blood loss
Chronic pain
Plan
Respiratory status still somewhat tenuous with significant wheezing
Supplemental oxygen as needed-currently on 2 L - 97% saturation
Incentive spirometry encouraged
Mucus clearing devices
Nebulizers as needed-on DuoNebs
Mucinex-Will increase dose
Add saline nebulizers
Advair continues
Aspiration precautions
Chest x-ray 05/19/2025-right chest tube removed, no pneumothorax, moderate loculated right pleural effusion, right lower lobe opacification stable
Follow exam and chest x-ray for right lower lobe opacification
Add systemic steroids with ongoing significant wheezing
Chest tube removed 05/19/2025
Status post right thoracoscopy with minithoracotomy, decortication and evacuation of hematoma by Dr. Banuelos
Chest tube per Dr. Francisco-potential removal 05/19/2025
Observe off anticoagulation
Pleural fluid cultures negative-antibiotics discontinued-mild leukocytosis, afebrile
History of non-small cell lung cancer
KRAS positive, PD-L1 expression 1%. S/p minimally invasive right lower lobe wedge resection by Dr. Banuelos on 04/15/2025
Resume outpatient follow-up
Bilateral pulm emboli with right ventricular strain suspect related to lung cancer as well as recent hospitalization and surgeries
Patient had been on Eliquis-discontinued and in view of right sided hemothorax
IVC filter placement 05/12/2025
Monitor hemoglobin-currently 9.5
Transfuse as needed
Monitor blood sugar
Insulin supplementation as needed
Analgesia by primary service and surgery
Patient has been on MS Contin 30 mg p.o. twice daily, resumed
Dilaudid on an as needed for breakthrough pain
Pain improved with chest tube removal
DVT prophylaxis-mechanical
Nutrition
Increased PT/OT
Reviewed with nursing
Stable for transfer to telemetry-pulmonary will continue to follow
Subjective Data
-
Date of Service:
Date of Service: May 20, 2025
Chief Complaint: Pulmonary Follow Up and Dyspnea Follow Up
Subjective:
Patient feels better with chest tube removed, less chest tube site pain, still has significant wheezing and some shortness of breath, able to mobilize secretions slightly better with nebulizers.
Review of Systems
General: Other (Per HPI)
Objective Data
Data Reviewed
Vital Signs / I&O:
Vital Signs
Temp Pulse Resp BP Pulse Ox
98.5 F 79 20 133/69 96
05/20/25 07:54 05/20/25 08:10 05/20/25 07:20 05/20/25 08:10 05/20/25 08:00
Intake and Output
05/19/25 05/20/25 05/21/25
06:59 06:59 06:59
Intake Total 1640 / 1640 731 / 731
Output Total 1200 / 1200 1200 / 1200
Balance 440 / 440 -469 / -469
SaO2: 96
Nasal Cannula flow liters per minute: 2
Physical Exam
General: Respiratory Distress (n) and Comfortable
HEENT: Normocephalic, Anicteric and Moist Mucous Membranes
Cardiovascular: Regular Rhythm
Respiratory: Wheeze (Diffuse expiratory), Crackles (Basilar), Rhonchi (Few expiratory), Non-Labored Respirations, Accessory Resp Muscle Use (n) and Chest Tube
GI: Soft, Non Distended and Non Tender
Neurology: Awake, Alert and No Motor Deficits
Skin: Warm, Good Color, Cyanosis (n), Jaundice (n) and Rash (n)
Labs/Micro/Reports
Lab Data
05/20/25 04:29
05/20/25 04:29
[2025-05-20] MEDS: DILAUDID 0.5 MG IV (10:42)
[2025-05-20 11:48] LABS: Glucose - Point of Care 138 mg/dl (70-99)
[2025-05-20] MEDS: DECADRON 4 MG IV ×2 (12:40→17:28)
[2025-05-20] MEDS: ZETIA 10 MG PO (12:43)
--- NOTE | 2025-05-20 14:07 | W.PN.HOSP.TC ---
Today's Communication/Plan
-
IV steroids
Diuresis
Imaging tomorrow
CTS, Pulmonary recs
Wean Pain regimen as tolerated
Assessment / Plan
Assessment / Plan
69yo F with PMHx of anxiety, COPD, DM, chronic back pain, CKD stage 3b, Hx of CVA, lung CA s/p minimally invasive wedge resection for Stage IA right lower lobe lung cancer on 04/15/2025 with hemothorax complications afterwards, DVT and pulmonary
embolism on ELiquis, HFpEF, was sent to rehab 5 days prior to admission and developed worsening dyspnea with R chest pain and hypoxia, in ED found significant R sided hemothorax with possible pneumonia s/p chest tube on 05/11/25, IVC filter on
05/12/25 and s/p hematoma evacuation by on 05/14/25 remained intubated for lung reexpansion
A/P
#Acute hypoxic respiratory failure 2/2 #R sided hemothorax with mediastinal shift most likely 2/2 Eliquis postOP 2/2 lung CA
� Now on 1-2 L
�Extubated 05/16 to nasal cannula
�Wean O2 as tolerated, O2 goal greater than 92%
�Hold Eliquis
-Remove CT 05/19
-Slightly more labored breathing today, wheeze - Add steroids
-Diuresis
-pain resolved with depressurizing R lung
-Pulmonary consult
-Chest surgery consult: plan for hematoma evacuation on 05/14/25, remained intubated for lung reinflation postOP�extubated 05/16
-Follow Hgb, transfuse as needed to keep Hgb >7
--Pleural fluid cultures negative, discontinue antibiotics
-PT/OT
-Wean Pain regimen
#Recent Acute DVT and PE
-s/p IVC filter on 05/12/25
-LE US w/o DVT
-Not a candidate for anticoagulation due to recurrent hemothorax
-normal RV function on TTE on 05/11/25
#Hypotension
IVF, transfuse PRBC to keep Hgb close to 8
follow BP trend
#Chronic HFpEF
#Essential HTN
not in exacerbation
resume lasix 05/19
-Hold BP meds
#COPD not in exacerbation
cont bronchodilators
Pleural fluid cultures negative, discontinue antibiotics
#Chronic back pain 2/2 DJD s/p Sx
cont home regimen
PT/OT
Wean IV pain regimen as tolerated
#Stage 2 left medial buttock pressure injury, POA
Wound care
#CKD stage 3b
Cr stable 1.4-1.5
follow Cr
Resume lasix and monitor
#DM type 2 with nephropathy
Accuchecks, Insulin SS, hold bolus while NPO
DM diet when ready
Acute blood loss anemia
Secondary to hemothorax, exacerbated with anticoagulation
Hemoglobin stable
Monitor off anticoagulation
#2 cm low-density lesion in the superior right lobe the liver
hemangioma as per radiologist
#History of non-small cell lung cancer
- S/p minimally invasive right lower lobe wedge resection by Dr. Banuelos on 04/15/2025
- Resume outpatient follow-up
#Benign thyroid nodule
stable since 2009
DVT ppx SCDs
Full code
Anticipated Discharge: 24 - 48 hours
Subjective/Interval History
-
Date of Service: May 20, 2025
slightly more labored breathing today, mild exp wheeze
Objective Data
-
Labs:
Laboratory Results
05/20/25
04:29
WBC 11.4 H
Hgb 9.5 L
Hct 29.5 L
Plt Count 258
Sodium 136
Potassium 4.5
Chloride 101
Carbon Dioxide 30
BUN 16
Creatinine 0.8
Glucose 85
Calcium 8.8
Total Bilirubin 0.8
AST 25
ALT < 10
Alkaline Phosphatase 48
Vital Signs:
Vital Signs
Temp Pulse Resp BP Pulse Ox
98.1 F 83 20 120/63 95
05/20/25 11:30 05/20/25 11:25 05/20/25 11:25 05/20/25 10:00 05/20/25 11:25
I&O
05/19/25 05/20/25 05/21/25
06:59 06:59 06:59
Intake Total 1640 / 1640 731 / 731
Output Total 1200 / 1200 1200 / 1200
Balance 440 / 440 -469 / -469
Review of Systems
-
History Source: Patient
All other systems: Not reviewed unless documented
Physical Exam
-
General: No Apparent Distress
Respiratory: Clear to Auscultation
GI: Soft, Nontender and Nondistended
Neuro: Awake
Psych: Calm
Data Reviewed
-
Total Time Spent with Patient (in minutes): 55
Diagnostic Radiology: Report Reviewed by me
CT Scan: Report Reviewed by me
Labs: Labs Reviewed by me
--- NOTE | 2025-05-20 15:13 | CM ---
Patient requested [facility]# and [facility]2. CM sent tt to physician and will start auth when physician confirms patient is medically ready for discharge. CM will continue to follow for discharge planning needs.
Plan;SNF pending bed availability and authorization
[2025-05-20 17:18] LABS: Glucose - Point of Care 219 mg/dl (70-99)
[2025-05-20] MEDS: NOVOLOG FLEXPEN-LOW RESISTANCE 2 UNITS SC (17:27)
[2025-05-20] MEDS: FLUSH (NSS) 2 FLUSH IV (19:53)
[2025-05-20] MEDS: REMOVE LIDOCAINE PATCH 1 PATCH REMOVE (21:19)
[2025-05-20] MEDS: LANTUS 0.1 UNITS SC (21:20)
[2025-05-20] MEDS: LIPITOR 80 MG PO (21:20)
[2025-05-20] MEDS: ZOFRAN 4 MG IV (21:21)
[2025-05-20 21:26] LABS: Glucose - Point of Care 246 mg/dl (70-99)
[2025-05-21] VITALS (9 sets, daily range): BP systolic 108–146; BP diastolic 49–88
[2025-05-21] MEDS: DILAUDID 1 MG IV (00:37)
[2025-05-21] MEDS: FLUSH (NSS) 2 FLUSH IV ×2 (00:37→02:14)
[2025-05-21] MEDS: DECADRON 4 MG IV ×2 (02:14→09:35)
[2025-05-21 04:09] LABS: Hematocrit 31.1 % (37.0-47.0); Hemoglobin 9.9 g/dL (12.0-16.0); Mean Corp Hgb Conc. 31.8 g/dL (33.0-37.0); Mean Corpuscular Volume 91.2 fL (81.0-99.0); Platelet Count 269 10^3/uL (130-400); Red Cell Dist. Width 16.1 % (11.5-14.5)
[2025-05-21 04:12] LABS: ALT (SGPT) 11 U/L (0-35); AST (SGOT) 18 U/L (14-36); Albumin 2.9 g/dl (3.5-5.0); Alkaline Phosphatase 66 U/L (38-126); Blood Urea Nitrogen 18 mg/dl (7-17); Calcium 8.8 mg/dl (8.4-10.2); Carbon Dioxide 30 mmol/L (22-30); Chloride 101 mmol/L (98-107); Estimated Creatinine Clearance 69 ml/min; Glucose 177 mg/dl (70-99); Potassium 4.3 mmol/L (3.5-5.1); Sodium 135 mmol/L (135-145); Total Protein 5.9 g/dl (6.3-8.2); eGFR > 60.00
[2025-05-21] MEDS: TYLENOL 1000 MG PO ×4 (04:25→21:16)
[2025-05-21] MEDS: MORPHINE SULFATE 15 MG PO (04:25)
[2025-05-21] MEDS: DUONEB 3 ML INH ×4 (07:30→19:19)
[2025-05-21] MEDS: SODIUM CHLORIDE 3% FOR INHALATION 1 VIAL INH ×2 (07:30→19:19)
[2025-05-21] MEDS: ADVAIR HFA 115/21 MCG INHALER 2 PUFF INH ×2 (07:30→19:19)
--- NOTE | 2025-05-21 08:00 | PTCARENOTE ---
Received report from previous nurse. Pt is AAOx3. Vital signs stable; satting 96% on 2L. No SOB, abnormal respiratory effort, or labored breathing noted. Pt resting comfortably. Plan of care ongoing. Call vidal within reach.
[2025-05-21] MEDS: MUCINEX 1200 MG PO ×2 (08:40→19:23)
[2025-05-21] MEDS: SENOKOT 8.6 MG PO ×2 (08:40→19:23)
[2025-05-21] MEDS: LASIX 80 MG PO (08:40)
[2025-05-21] MEDS: COLACE 100 MG PO ×2 (08:40→19:23)
[2025-05-21] MEDS: LIDOCAINE 4% PATCH 1 PATCH TOPICAL (08:40)
[2025-05-21] MEDS: MS CONTIN (EXTENDED RELEASE) 30 MG PO ×2 (08:40→19:23)
[2025-05-21] MEDS: MIRALAX 17 GRAMS PO (08:40)
[2025-05-21] MEDS: DESENEX/MITRAZOL/ZEASORB 1 APPLIC TOPICAL ×2 (08:40→19:23)
[2025-05-21 09:06] LABS: Glucose - Point of Care 220 mg/dl (70-99)
[2025-05-21] MEDS: NOVOLOG FLEXPEN-LOW RESISTANCE 2 UNITS SC (09:23)
[2025-05-21] MEDS: NOVOLOG FLEXPEN 6 UNITS SC ×3 (09:24→16:56)
--- NOTE | 2025-05-21 11:15 | W.PN.PUL3 ---
Today's Communication / Plan
-
- Continue DuoNeb as scheduled
- Continue IV steroids for 1 more day, transition to p.o. prednisone 05/22
- Stable for transfer out of IMU
Assessment
-
69-year-old female with a past medical history of left upper lobe stage Ib lung cancer s/p resection (2022), right lower lobe squamous cell carcinoma s/p wedge resection on 04/15/2025, DM type II, hypertension, brain aneurysm s/p clipping, bilateral
distal DVT (diagnosed 04/25/2025) and history of CVA who presented with shortness of breath. Patient was initially hypotensive to 86/62, saturating 93% on 4 L/min, breathing at 20 breaths/min with pulse rate 93. She has remained afebrile. Initial
labs showed leukocytosis to 21.3, Hb 9.7, absolute eosinophil count: 300, lactate 3.6, and COVID-19 negative. Patient found to have a large right-sided pleural effusion with mediastinal shifting from right to left as well as hemorrhage in the right
posterior lung. In the ER she was given 250 cc bolus of NS 0.9%, cefepime, vancomycin, Zofran, Dilaudid, and morphine, and a PERT alert was called. Case discussed amongst myself in addition to IR and thoracic oncology, Dr. Banuelos, and the PE is not
the main pathology causing her shortness of breath + hypoxia. The main issue is her large right-sided pleural effusion which is causing mediastinal shift. Chest tube recommended and IR inserted a 20 Latvian Thal-Quick chest tube with initially
almost no return with clots being pulled through the tube initially with manual aspiration performed. Because of this, the catheter was exchanged for a 16 Latvian pigtail catheter with the pigtail maneuvered in an effort to disrupt some of the
loculations of the complex effusion, and this allowed improved drainage with a more inferior position of the catheter. There were no immediate complications and the patient was transferred to the ICU for further care with azure principal solution specialist/pulmonary
service consulted for additional management/recommendations.
Assessment
Right hemothorax with mediastinal shift
Hypoxemic respiratory failure status post mechanical ventilation-intubated 05/14 for thoracotomy and extubated 05/16/2025
History of non-small cell lung cancer
Acute bilateral pulm emboli with right ventricular strain status post IVC filter placement 05/12/2025
Anemia related to acute blood loss
Chronic pain
COPD exacerbation 05/21.
Plan
05/21, wheezing significantly improved since initiation of steroids and nebulized DuoNeb
Continue current therapy, continue IV steroids for 1 more day then transition to p.o. prednisone 05/22
Supplemental oxygen as needed
Incentive spirometry encouraged
Mucus clearing devices
Nebulizers as needed-on DuoNebs
Advair continues
Aspiration precautions
Chest x-ray 05/19/2025-right chest tube removed, no pneumothorax, moderate loculated right pleural effusion, right lower lobe opacification stable
Follow exam and chest x-ray for right lower lobe opacification
Add systemic steroids with ongoing significant wheezing
Chest tube removed 05/19/2025
Status post right thoracoscopy with minithoracotomy, decortication and evacuation of hematoma by Dr. Banuelos
Chest tube per Dr. Francisco-potential removal 05/19/2025
Observe off anticoagulation
Pleural fluid cultures negative-antibiotics discontinued-mild leukocytosis, afebrile
History of non-small cell lung cancer
KRAS positive, PD-L1 expression 1%. S/p minimally invasive right lower lobe wedge resection by Dr. Banuelos on 04/15/2025
Resume outpatient follow-up
Bilateral pulm emboli with right ventricular strain suspect related to lung cancer as well as recent hospitalization and surgeries
Patient had been on Eliquis-discontinued and in view of right sided hemothorax
IVC filter placement 05/12/2025
Monitor hemoglobin-currently 9.5
Transfuse as needed
Monitor blood sugar
Insulin supplementation as needed
Analgesia by primary service and surgery
Patient has been on MS Contin 30 mg p.o. twice daily, resumed
Dilaudid on an as needed for breakthrough pain
Pain improved with chest tube removal
DVT prophylaxis-mechanical
Nutrition
Increased PT/OT
Stable for transfer to telemetry-pulmonary will continue to follow
Subjective Data
-
Date of Service:
Date of Service: May 21, 2025
Chief Complaint: Pulmonary Follow Up and Dyspnea Follow Up
Subjective:
Comfortably lying in bed in no acute distress, reports feeling better since yesterday
Review of Systems
Genitourinary: Other (All 14 systems reviewed and negative except as stated above in the history of present illness.)
Objective Data
Data Reviewed
Vital Signs / I&O / Oxygen:
Vital Signs
Temp Pulse Resp BP Pulse Ox
97.2 F 70 16 111/53 94
05/21/25 07:10 05/21/25 08:40 05/21/25 07:33 05/21/25 08:40 05/21/25 08:00
Intake and Output
05/20/25 05/21/25 05/22/25
06:59 06:59 06:59
Intake Total 731 / 731 980 / 980
Output Total 1200 / 1200 1000 / 1000
Balance -469 / -469 -20 / -20
SaO2 [CPAP/PSV] 96
SaO2 [A/C] 98
SaO2 94
Nasal Cannula flow liters per 2
minute
Physical Exam
General: Respiratory Distress (n) and Comfortable
HEENT: Normocephalic, Anicteric and Moist Mucous Membranes
Cardiovascular: Regular Rhythm
Respiratory: Wheeze (No wheezing this morning), Crackles (Basilar), Rhonchi (None), Non-Labored Respirations, Accessory Resp Muscle Use (n) and Chest Tube (Removed)
GI: Soft, Non Distended and Non Tender
Neurology: Awake, Alert and No Motor Deficits
Skin: Warm, Good Color, Cyanosis (n), Jaundice (n) and Rash (n)
Labs/Micro/Reports
Lab Data
05/21/25 03:39
05/21/25 03:39
[2025-05-21] MEDS: ZETIA 10 MG PO (12:08)
[2025-05-21 12:26] LABS: Glucose - Point of Care 301 mg/dl (70-99)
--- NOTE | 2025-05-21 12:57 | W.PN.HOSP.TC ---
Today's Communication/Plan
-
Transition to Prednisone taper
Wean pain regimen
wean o2 - goal RA saturating >92%
Assessment / Plan
Assessment / Plan
69yo F with PMHx of anxiety, COPD, DM, chronic back pain, CKD stage 3b, Hx of CVA, lung CA s/p minimally invasive wedge resection for Stage IA right lower lobe lung cancer on 04/15/2025 with hemothorax complications afterwards, DVT and pulmonary
embolism on ELiquis, HFpEF, was sent to rehab 5 days prior to admission and developed worsening dyspnea with R chest pain and hypoxia, in ED found significant R sided hemothorax with possible pneumonia s/p chest tube on 05/11/25, IVC filter on
05/12/25 and s/p hematoma evacuation by on 05/14/25 remained intubated for lung reexpansion
A/P
#Acute hypoxic respiratory failure 2/2 #R sided hemothorax with mediastinal shift most likely 2/2 Eliquis postOP 2/2 lung CA
� Now on 1-2 L
�Extubated 05/16 to nasal cannula
�Wean O2 as tolerated, O2 goal greater than 92%
�Hold Eliquis
-Remove CT 05/19
-Slightly more labored breathing 05/20, wheeze - Added decadron 4mg q8h - transitioned to prednisone 50mg daily 05/21
-Diuresis
-pain resolved with depressurizing R lung
-Pulmonary consult
-Chest surgery consult: plan for hematoma evacuation on 05/14/25, remained intubated for lung reinflation post OP�extubated 05/16
-Follow Hgb, transfuse as needed to keep Hgb >7
--Pleural fluid cultures negative, discontinue antibiotics
-PT/OT
-Wean Pain regimen
#Recent Acute DVT and PE
-s/p IVC filter on 05/12/25
-LE US w/o DVT
-Not a candidate for anticoagulation due to recurrent hemothorax
-normal RV function on TTE on 05/11/25
#Hypotension
IVF, transfuse PRBC to keep Hgb close to 8
follow BP trend
#Chronic HFpEF
#Essential HTN
not in exacerbation
resume lasix 05/19
-Hold BP meds
#COPD not in exacerbation
cont bronchodilators
Pleural fluid cultures negative, discontinue antibiotics
#Chronic back pain 2/2 DJD s/p Sx
cont home regimen
PT/OT
Wean IV pain regimen as tolerated
#Stage 2 left medial buttock pressure injury, POA
Wound care
#CKD stage 3b
Cr stable 1.4-1.5
follow Cr
Resume lasix and monitor
#DM type 2 with nephropathy
Accuchecks, Insulin SS, hold bolus while NPO
DM diet when ready
Acute blood loss anemia
Secondary to hemothorax, exacerbated with anticoagulation
Hemoglobin stable
Monitor off anticoagulation
#2 cm low-density lesion in the superior right lobe the liver
hemangioma as per radiologist
#History of non-small cell lung cancer
- S/p minimally invasive right lower lobe wedge resection by Dr. Banuelos on 04/15/2025
- Resume outpatient follow-up
#Benign thyroid nodule
stable since 2009
DVT ppx SCDs
Full code
Anticipated Discharge: 24 - 48 hours
Subjective/Interval History
-
Date of Service: May 21, 2025
wheezing improved, no longer labored breathing
Objective Data
-
Labs:
Laboratory Results
05/21/25
03:39
WBC 11.7 H
Hgb 9.9 L
Hct 31.1 L
Plt Count 269
Sodium 135
Potassium 4.3
Chloride 101
Carbon Dioxide 30
BUN 18 H
Creatinine 0.8
Glucose 177 H
Calcium 8.8
Total Bilirubin 0.6
AST 18
ALT 11
Alkaline Phosphatase 66
Vital Signs:
Vital Signs
Temp Pulse Resp BP Pulse Ox
97.2 F 80 22 108/57 92
05/21/25 07:10 05/21/25 12:00 05/21/25 12:00 05/21/25 12:00 05/21/25 12:00
I&O
05/20/25 05/21/25 05/22/25
06:59 06:59 06:59
Intake Total 731 / 731 980 / 980
Output Total 1200 / 1200 1000 / 1000 800 / 800
Balance -469 / -469 -20 / -20 -800 / -800
Review of Systems
-
History Source: Patient
All other systems: Not reviewed unless documented
Data Reviewed
-
Diagnostic Radiology: Report Reviewed by me
CT Scan: Report Reviewed by me
Labs: Labs Reviewed by me
[2025-05-21] MEDS: NOVOLOG FLEXPEN-LOW RESISTANCE 4 UNITS SC (13:47)
[2025-05-21] MEDS: DELTASONE 50 MG PO (14:05)
[2025-05-21] MEDS: DILAUDID 0.5 MG IV ×2 (15:32→22:03)
[2025-05-21 16:45] LABS: Glucose - Point of Care 274 mg/dl (70-99)
[2025-05-21] MEDS: NOVOLOG FLEXPEN-LOW RESISTANCE 3 UNITS SC (16:55)
[2025-05-21] MEDS: LIPITOR 80 MG PO (21:16)
[2025-05-21] MEDS: REMOVE LIDOCAINE PATCH 1 PATCH REMOVE (21:16)
[2025-05-21 21:43] LABS: Glucose - Point of Care 291 mg/dl (70-99)
[2025-05-21] MEDS: LANTUS 0.1 UNITS SC (21:59)
--- NOTE | 2025-05-22 01:06 | PTCARENOTE ---
Patient's pulse ox- 88% -90 on 2.5L n/c when sleeping, increased oxygen to 3.5L n/c sat-94-95%.
[2025-05-22 03:04] VITALS: BP 138/67
[2025-05-22] MEDS: DILAUDID 0.5 MG IV (03:27)
[2025-05-22] MEDS: TYLENOL 1000 MG PO ×4 (03:27→21:33)
[2025-05-22 04:08] VITALS: BMI 36.4
[2025-05-22 07:33] LABS: ALT (SGPT) 13 U/L (0-35); AST (SGOT) 23 U/L (14-36); Albumin 3.1 g/dl (3.5-5.0); Alkaline Phosphatase 62 U/L (38-126); Blood Urea Nitrogen 20 mg/dl (7-17); Calcium 9.2 mg/dl (8.4-10.2); Carbon Dioxide 31 mmol/L (22-30); Chloride 100 mmol/L (98-107); Estimated Creatinine Clearance 61 ml/min; Glucose 168 mg/dl (70-99); Potassium 3.9 mmol/L (3.5-5.1); Sodium 136 mmol/L (135-145); Total Protein 6.0 g/dl (6.3-8.2); eGFR > 60.00
[2025-05-22 07:40] LABS: Hematocrit 30.3 % (37.0-47.0); Hemoglobin 9.7 g/dL (12.0-16.0); Mean Corp Hgb Conc. 32.0 g/dL (33.0-37.0); Mean Corpuscular Volume 93.8 fL (81.0-99.0); Platelet Count 333 10^3/uL (130-400); Red Cell Dist. Width 16.1 % (11.5-14.5)
[2025-05-22 07:44] VITALS: BP 147/73
[2025-05-22 07:44] LABS: Glucose - Point of Care 179 mg/dl (70-99)
[2025-05-22] MEDS: DUONEB 3 ML INH ×4 (07:53→19:56)
[2025-05-22] MEDS: SODIUM CHLORIDE 3% FOR INHALATION 1 VIAL INH ×2 (07:53→20:11)
[2025-05-22] MEDS: ADVAIR HFA 115/21 MCG INHALER 2 PUFF INH ×2 (07:54→19:56)
[2025-05-22] MEDS: LIDOCAINE 4% PATCH 1 PATCH TOPICAL (08:39)
[2025-05-22] MEDS: MS CONTIN (EXTENDED RELEASE) 30 MG PO ×2 (08:43→19:46)
[2025-05-22] MEDS: DELTASONE 50 MG PO (08:43)
[2025-05-22] MEDS: MUCINEX 1200 MG PO ×2 (08:43→19:46)
[2025-05-22] MEDS: SENOKOT 8.6 MG PO ×2 (08:43→19:46)
[2025-05-22] MEDS: LASIX 80 MG PO (08:43)
[2025-05-22] MEDS: COLACE 100 MG PO ×2 (08:43→19:46)
[2025-05-22] MEDS: NOVOLOG FLEXPEN-LOW RESISTANCE 1 UNITS SC (08:43)
[2025-05-22] MEDS: NOVOLOG FLEXPEN 6 UNITS SC ×3 (08:44→18:10)
[2025-05-22] MEDS: MIRALAX PO (08:47)
[2025-05-22] MEDS: DESENEX/MITRAZOL/ZEASORB 1 APPLIC TOPICAL ×2 (08:47→19:46)
[2025-05-22] MEDS: DIFLUCAN 200 MG PO (10:30)
[2025-05-22 11:28] VITALS: BP 154/70
--- NOTE | 2025-05-22 11:52 | W.PN.HOSP.TC ---
Today's Communication/Plan
-
Switch to 30mg pred
Fluconazole
Wean pain regimen - .25mg iv dilaudid
Assessment / Plan
Assessment / Plan
69yo F with PMHx of anxiety, COPD, DM, chronic back pain, CKD stage 3b, Hx of CVA, lung CA s/p minimally invasive wedge resection for Stage IA right lower lobe lung cancer on 04/15/2025 with hemothorax complications afterwards, DVT and pulmonary
embolism on ELiquis, HFpEF, was sent to rehab 5 days prior to admission and developed worsening dyspnea with R chest pain and hypoxia, in ED found significant R sided hemothorax with possible pneumonia s/p chest tube on 05/11/25, IVC filter on
05/12/25 and s/p hematoma evacuation by on 05/14/25 remained intubated for lung reexpansion
A/P
#Acute hypoxic respiratory failure 2/2 #R sided hemothorax with mediastinal shift most likely 2/2 Eliquis postOP 2/2 lung CA
� Now on 3 L
�Extubated 05/16 to nasal cannula
�Wean O2 as tolerated, O2 goal greater than 92%
�Hold Eliquis
-Remove CT 05/19
-Slightly more labored breathing 05/20, wheeze - Added decadron 4mg q8h - transitioned to prednisone 30mg daily 05/21 by pulmonary
-Diuresis
-pain resolved with depressurizing R lung
-Pulmonary consult
-Chest surgery consult: plan for hematoma evacuation on 05/14/25, remained intubated for lung reinflation post OP�extubated 05/16
-Follow Hgb, transfuse as needed to keep Hgb >7
--Pleural fluid cultures negative, discontinue antibiotics
-PT/OT
-Wean Pain regimen - down to .25 Dilaudid iv prn
#Oral Thrush
-started on fluconazole
#Recent Acute DVT and PE
-s/p IVC filter on 05/12/25
-LE US w/o DVT
-Not a candidate for anticoagulation due to recurrent hemothorax
-normal RV function on TTE on 05/11/25
#Hypotension
IVF, transfuse PRBC to keep Hgb close to 8
follow BP trend
#Chronic HFpEF
#Essential HTN
not in exacerbation
resume lasix 05/19
-Hold BP meds
#Acute COPD not in exacerbation
cont bronchodilators
Pleural fluid cultures negative, discontinue antibiotics
Switched from IV steroids to PO pred 05/22
#Chronic back pain 2/2 DJD s/p Sx
cont home regimen
PT/OT
Wean IV pain regimen as tolerated
#Stage 2 left medial buttock pressure injury, POA
Wound care
#CKD stage 3b
Cr stable 1.4-1.5
follow Cr
Resume lasix and monitor
#DM type 2 with nephropathy
Accuchecks, Insulin SS, hold bolus while NPO
DM diet when ready
Acute blood loss anemia
Secondary to hemothorax, exacerbated with anticoagulation
Hemoglobin stable
Monitor off anticoagulation
#2 cm low-density lesion in the superior right lobe the liver
hemangioma as per radiologist
#History of non-small cell lung cancer
- S/p minimally invasive right lower lobe wedge resection by Dr. Banuelos on 04/15/2025
- Resume outpatient follow-up
#Benign thyroid nodule
stable since 2009
DVT ppx SCDs
Full code
Anticipated Discharge: 24 - 48 hours
Subjective/Interval History
-
Date of Service: May 22, 2025
developed oral thrush
Pain tolerable
no acute events overnight
Objective Data
-
Labs:
Laboratory Results
05/22/25
06:44
WBC 18.4 H
Hgb 9.7 L
Hct 30.3 L
Plt Count 333 D
Sodium 136
Potassium 3.9
Chloride 100
Carbon Dioxide 31 H
BUN 20 H
Creatinine 0.9
Glucose 168 H
Calcium 9.2
Total Bilirubin 0.5
AST 23
ALT 13
Alkaline Phosphatase 62
Vital Signs:
Vital Signs
Temp Pulse Resp BP Pulse Ox
98.0 F 88 16 154/70 92
05/22/25 11:28 05/22/25 11:44 05/22/25 11:44 05/22/25 11:28 05/22/25 11:44
I&O
05/21/25 05/22/25 05/23/25
06:59 06:59 06:59
Intake Total 980 / 980 480 / 480
Output Total 1000 / 1000 1400 / 1400
Balance -20 / -20 -920 / -920
Review of Systems
-
History Source: Patient
All other systems: Not reviewed unless documented
Physical Exam
-
General: No Apparent Distress
Respiratory: Clear to Auscultation
GI: Soft, Nontender and Nondistended
Neuro: Awake
Psych: Calm
Data Reviewed
-
Diagnostic Radiology: Report Reviewed by me
CT Scan: Report Reviewed by me
Labs: Labs Reviewed by me
[2025-05-22] MEDS: ZETIA 10 MG PO (12:01)
[2025-05-22 12:40] LABS: Glucose - Point of Care 244 mg/dl (70-99)
[2025-05-22] MEDS: NOVOLOG FLEXPEN-LOW RESISTANCE 2 UNITS SC (13:13)
[2025-05-22] MEDS: MORPHINE SULFATE 15 MG PO (14:02)
[2025-05-22] MEDS: ANESTHETIC LOZENGE 1 LOZENGE PO ×2 (14:26→19:46)
--- NOTE | 2025-05-22 14:37 | W.PN.PUL3 ---
Today's Communication / Plan
-
- Lowered prednisone to 30 mg daily
- Start fluconazole 200 mg daily in view of oral thrush
- Start DVT prophylaxis with subcu heparin low-dose
- Pulmonary team will continue to follow along
- Discharge planning
Assessment
-
69-year-old female with a past medical history of left upper lobe stage Ib lung cancer s/p resection (2022), right lower lobe squamous cell carcinoma s/p wedge resection on 04/15/2025, DM type II, hypertension, brain aneurysm s/p clipping, bilateral
distal DVT (diagnosed 04/25/2025) and history of CVA who presented with shortness of breath. Patient was initially hypotensive to 86/62, saturating 93% on 4 L/min, breathing at 20 breaths/min with pulse rate 93. She has remained afebrile. Initial
labs showed leukocytosis to 21.3, Hb 9.7, absolute eosinophil count: 300, lactate 3.6, and COVID-19 negative. Patient found to have a large right-sided pleural effusion with mediastinal shifting from right to left as well as hemorrhage in the right
posterior lung. In the ER she was given 250 cc bolus of NS 0.9%, cefepime, vancomycin, Zofran, Dilaudid, and morphine, and a PERT alert was called. Case discussed amongst myself in addition to IR and thoracic oncology, Dr. Banuelos, and the PE is not
the main pathology causing her shortness of breath + hypoxia. The main issue is her large right-sided pleural effusion which is causing mediastinal shift. Chest tube recommended and IR inserted a 20 Yi Thal-Quick chest tube with initially
almost no return with clots being pulled through the tube initially with manual aspiration performed. Because of this, the catheter was exchanged for a 16 Yi pigtail catheter with the pigtail maneuvered in an effort to disrupt some of the
loculations of the complex effusion, and this allowed improved drainage with a more inferior position of the catheter. There were no immediate complications and the patient was transferred to the ICU for further care with army officer/pulmonary
service consulted for additional management/recommendations.
Assessment
Right hemothorax with mediastinal shift
Hypoxemic respiratory failure status post mechanical ventilation-intubated 05/14 for thoracotomy and extubated 05/16/2025
History of non-small cell lung cancer
Acute bilateral pulm emboli with right ventricular strain status post IVC filter placement 05/12/2025
Anemia related to acute blood loss
Chronic pain
COPD exacerbation 05/21.
Thrush, 05/22
Plan
05/22, initiate PO fluconazole for oral thrush
, wheezing significantly improved since initiation of steroids and nebulized DuoNeb
Continue current nebulized therapy, change IV steroids to prednisone 30 mg daily
Supplemental oxygen as needed
Incentive spirometry encouraged
Mucus clearing devices
Nebulizers as needed-on DuoNebs
Advair continues
Aspiration precautions
Chest x-ray 05/19/2025-right chest tube removed, no pneumothorax, moderate loculated right pleural effusion, right lower lobe opacification stable
Follow exam and chest x-ray for right lower lobe opacification
Chest tube removed 05/19/2025
Status post right thoracoscopy with minithoracotomy, decortication and evacuation of hematoma by Dr. Banuelos
Chest tube per Dr. Francisco-potential removal 05/19/2025
Observe off anticoagulation
Pleural fluid cultures negative-antibiotics discontinued-mild leukocytosis, afebrile
History of non-small cell lung cancer
KRAS positive, PD-L1 expression 1%. S/p minimally invasive right lower lobe wedge resection by Dr. Banuelos on 04/15/2025
Resume outpatient follow-up
Bilateral pulm emboli with right ventricular strain suspect related to lung cancer as well as recent hospitalization and surgeries
Patient had been on Eliquis-discontinued and in view of right sided hemothorax
IVC filter placement 05/12/2025
05/22, initiate subcu heparin for DVT prophylaxis
Monitor hemoglobin-currently 9.5
Transfuse as needed
Monitor blood sugar
Insulin supplementation as needed
Analgesia by primary service and surgery
Patient has been on MS Contin 30 mg p.o. twice daily, resumed
Dilaudid on an as needed for breakthrough pain
Pain improved with chest tube removal
DVT prophylaxis-start subcu heparin
Nutrition
Increased PT/OT
Pulmonary will continue to follow
Subjective Data
-
Date of Service:
Date of Service: May 22, 2025
Chief Complaint: Pulmonary Follow Up and Dyspnea Follow Up
Subjective:
Comfortably sitting in bed, reports burning sensation in mouth
Review of Systems
Genitourinary: Other (All 14 systems reviewed and negative except as stated above in the history of present illness.)
Objective Data
Data Reviewed
Vital Signs / I&O / Oxygen:
Vital Signs
Temp Pulse Resp BP Pulse Ox
98.0 F 88 16 154/70 92
05/22/25 11:28 05/22/25 11:44 05/22/25 11:44 05/22/25 11:28 05/22/25 11:44
Intake and Output
05/21/25 05/22/25 05/23/25
06:59 06:59 06:59
Intake Total 980 / 980 480 / 480
Output Total 1000 / 1000 1400 / 1400
Balance -20 / -20 -920 / -920
SaO2 [CPAP/PSV] 96
SaO2 [A/C] 98
SaO2 92
Nasal Cannula flow liters per 3
minute
Physical Exam
General: Respiratory Distress (n) and Comfortable
HEENT: Normocephalic, Anicteric, Moist Mucous Membranes, Thrush and Other (Oral thrush)
Cardiovascular: Regular Rhythm
Respiratory: Wheeze (No wheezing this morning), Crackles (Basilar), Rhonchi (None), Non-Labored Respirations, Accessory Resp Muscle Use (n) and Chest Tube (Removed)
GI: Soft, Non Distended and Non Tender
Neurology: Awake, Alert and No Motor Deficits
Skin: Warm, Good Color, Cyanosis (n), Jaundice (n) and Rash (n)
Labs/Micro/Reports
Lab Data
05/22/25 06:44
05/22/25 06:44
[2025-05-22 15:10] VITALS: BP 137/69
[2025-05-22] MEDS: NOVOLOG FLEXPEN-LOW RESISTANCE 3 UNITS SC (18:10)
[2025-05-22 18:32] LABS: Glucose - Point of Care 279 mg/dl (70-99)
[2025-05-22 19:26] VITALS: BP 148/71
[2025-05-22] MEDS: REMOVE LIDOCAINE PATCH 1 PATCH REMOVE (19:47)
[2025-05-22] MEDS: LIPITOR 80 MG PO (21:34)
[2025-05-22] MEDS: LANTUS 0.1 UNITS SC (21:36)
[2025-05-22 21:37] LABS: Glucose - Point of Care 236 mg/dl (70-99)
[2025-05-22 23:23] VITALS: BP 142/67
[2025-05-22] MEDS: DILAUDID 0.25 MG IV (23:43)
[2025-05-23] MEDS: TYLENOL 1000 MG PO ×3 (03:01→15:28)
[2025-05-23] MEDS: ANESTHETIC LOZENGE 1 LOZENGE PO ×4 (03:05→17:01)
[2025-05-23 03:39] VITALS: BP 138/65
[2025-05-23 05:36] VITALS: BMI 37.3
[2025-05-23 06:24] LABS: Hematocrit 29.7 % (37.0-47.0); Hemoglobin 9.5 g/dL (12.0-16.0); Mean Corp Hgb Conc. 32.0 g/dL (33.0-37.0); Mean Corpuscular Volume 94.3 fL (81.0-99.0); Platelet Count 313 10^3/uL (130-400); Red Cell Dist. Width 16.3 % (11.5-14.5)
[2025-05-23 07:03] LABS: ALT (SGPT) 15 U/L (0-35); AST (SGOT) 21 U/L (14-36); Albumin 3.0 g/dl (3.5-5.0); Alkaline Phosphatase 65 U/L (38-126); Blood Urea Nitrogen 25 mg/dl (7-17); Calcium 9.3 mg/dl (8.4-10.2); Carbon Dioxide 31 mmol/L (22-30); Chloride 100 mmol/L (98-107); Estimated Creatinine Clearance 62 ml/min; Glucose 159 mg/dl (70-99); Potassium 3.7 mmol/L (3.5-5.1); Sodium 132 mmol/L (135-145); Total Protein 5.9 g/dl (6.3-8.2); eGFR > 60.00
[2025-05-23 07:30] VITALS: BP 158/71
[2025-05-23] MEDS: DUONEB 3 ML INH ×3 (08:09→15:50)
[2025-05-23] MEDS: ADVAIR HFA 115/21 MCG INHALER 2 PUFF INH (08:10)
[2025-05-23] MEDS: SODIUM CHLORIDE 3% FOR INHALATION 1 VIAL INH (08:10)
[2025-05-23] MEDS: LIDOCAINE 4% PATCH 1 PATCH TOPICAL (08:23)
[2025-05-23] MEDS: DELTASONE 30 MG PO (08:23)
[2025-05-23] MEDS: COLACE 100 MG PO (08:24)
[2025-05-23] MEDS: SENOKOT 8.6 MG PO (08:24)
[2025-05-23] MEDS: LASIX 80 MG PO (08:24)
[2025-05-23] MEDS: MUCINEX 1200 MG PO (08:25)
[2025-05-23] MEDS: MS CONTIN (EXTENDED RELEASE) 30 MG PO (08:25)
[2025-05-23] MEDS: DIFLUCAN 200 MG PO (08:25)
[2025-05-23 08:26] LABS: Glucose - Point of Care 146 mg/dl (70-99)
[2025-05-23] MEDS: NOVOLOG FLEXPEN-LOW RESISTANCE SC (08:27)
[2025-05-23] MEDS: NOVOLOG FLEXPEN 6 UNITS SC ×2 (08:27→12:47)
[2025-05-23] MEDS: MIRALAX 17 GRAMS PO (08:28)
[2025-05-23] MEDS: DESENEX/MITRAZOL/ZEASORB 1 APPLIC TOPICAL (08:29)
--- NOTE | 2025-05-23 09:55 | W.PN.PUL3 ---
Today's Communication / Plan
-
I explained that her shortness of breath is likely multifactorial given recent effusion, PE, deconditioning, BMI, suspicion of MORENA
Weaning O2 down as tolerated per team, she is also scheduled for SNF placement which would help with her weaning down O2 as well
We discussed factors for MORENA and need for outpatient testing but she has declined
Agree with discharge planning to SNF with follow-up as outpatient for further testing
We will arrange for outpatient follow-up
Assessment
-
69-year-old female with a past medical history of left upper lobe stage Ib lung cancer s/p resection (2022), right lower lobe squamous cell carcinoma s/p wedge resection on 04/15/2025, DM type II, hypertension, brain aneurysm s/p clipping, bilateral
distal DVT (diagnosed 04/25/2025) and history of CVA who presented with shortness of breath. Patient was initially hypotensive to 86/62, saturating 93% on 4 L/min, breathing at 20 breaths/min with pulse rate 93. She has remained afebrile. Initial
labs showed leukocytosis to 21.3, Hb 9.7, absolute eosinophil count: 300, lactate 3.6, and COVID-19 negative. Patient found to have a large right-sided pleural effusion with mediastinal shifting from right to left as well as hemorrhage in the right
posterior lung. In the ER she was given 250 cc bolus of NS 0.9%, cefepime, vancomycin, Zofran, Dilaudid, and morphine, and a PERT alert was called. Case discussed amongst myself in addition to IR and thoracic oncology, Dr. Banuelos, and the PE is not
the main pathology causing her shortness of breath + hypoxia. The main issue is her large right-sided pleural effusion which is causing mediastinal shift. Chest tube recommended and IR inserted a 20 [place] Thal-Quick chest tube with initially
almost no return with clots being pulled through the tube initially with manual aspiration performed. Because of this, the catheter was exchanged for a 16 [place] pigtail catheter with the pigtail maneuvered in an effort to disrupt some of the
loculations of the complex effusion, and this allowed improved drainage with a more inferior position of the catheter. There were no immediate complications and the patient was transferred to the ICU for further care with psychology teacher/pulmonary
service consulted for additional management/recommendations.
Right hemothorax with mediastinal shift
Hypoxemic respiratory failure status post mechanical ventilation-intubated 05/14 for thoracotomy and extubated 05/16/2025
History of non-small cell lung cancer
Acute bilateral pulm emboli with right ventricular strain status post IVC filter placement 05/12/2025
Anemia related to acute blood loss
Chronic pain
COPD exacerbation 05/21.
Thrush, 05/22
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
Essential hypertension
Kidney stones
Type 2 diabetes mellitus
Mild intermittent asthma
Proteinuria
Multinodular goiter
Vitamin D deficiency
Hypercholesterolemia
Obesity, BMI 37
Insomnia/Restless leg syndrome
brain aneurysm , Clipped
back surgery
Parathyroidectomy
Resection of left upper lobe of lung for squamous cell carcinoma December 2022
Biopsy right lung at [facility] 11/2024
R lung partial lobectomy for tx of mass 04/15/2025
[facility]-UTI, Septic shock, syncope likely vasovagal 12/22/24-12/26/24
DH-pseudomonas UTI, JOHNNY, 12/28-01/01/2025
Plan
Remains on 3L NC--wean down as tolerated
Reviewed with RN, home O2 eval can be obtained
05/22, initiate PO fluconazole for oral thrush
05/21-, wheezing significantly improved since initiation of steroids and nebulized DuoNeb
Continue current nebulized therapy, change IV steroids to prednisone 30 mg daily
Supplemental oxygen as needed
Incentive spirometry encouraged
Mucus clearing devices
Nebulizers as needed-on DuoNebs
Advair continues
Aspiration precautions
Chest x-ray 05/19/2025-right chest tube removed, no pneumothorax, moderate loculated right pleural effusion, right lower lobe opacification stable
Follow exam and chest x-ray for right lower lobe opacification
R malignant effusion, presumed-cyto negative sent 05/12/25
Chest tube inserted by IR 05/11/25
Chest tube removed 05/19/2025
Status post right thoracoscopy with minithoracotomy, decortication and evacuation of hematoma by Dr. Banuelos
Chest tube per Dr. Francisco-potential removal 05/19/2025
Observe off anticoagulation
Pleural fluid cultures negative-antibiotics discontinued-mild leukocytosis, afebrile
History of non-small cell lung cancer
KRAS positive, PD-L1 expression 1%. S/p minimally invasive right lower lobe wedge resection by Dr. Banuelos on 04/15/2025
Resume outpatient follow-up
Bilateral pulm emboli with right ventricular strain suspect related to lung cancer as well as recent hospitalization and surgeries
Patient had been on Eliquis-discontinued and in view of right sided hemothorax
IVC filter placement 05/12/2025
05/22, initiate subcu heparin for DVT prophylaxis
Monitor hemoglobin-currently 9.5
Transfuse as needed
Analgesia by primary service and surgery
Patient has been on MS Contin 30 mg p.o. twice daily, resumed
Dilaudid on an as needed for breakthrough pain
Pain improved with chest tube removal
DVT prophylaxis-start subcu heparin
Nutrition
Increased PT/OT
We discussed OP sleep study, given her risk factors but she has declined
D/c planning back to SNF
Diagnostic Data
Chest X-Ray: 05/21/25- No significant interval change. Similar appearance of the loculated right-sided pleural effusion with associated airspace opacities which may represent atelectasis or pneumonia.
CT Scan: CHEST 05/13/25- Persistent large heterogeneous right pleural effusion with known hemorrhagic products. Mildly improved. Improved mediastinal shift to the left.
Postsurgical change. New right-sided chest tube. Stable changes of the right breast probable post procedural change. New from 03/09/2025.
Too small to characterize hypodense thyroid lesion likely a benign nodule. Stable from 2009 suggesting it is benign.
Echo: 05/11/25- 1. Normal left ventricular size and function.
2. Ejection fraction is 55-60% by visual assessment.
3. Upper normal right ventricle size and normal function. Mild right ventricular hypertrophy.
4. Aortic sclerosis without stenosis.
5. Mild tricuspid regurgitation. Estimated pulmonary artery pressure of 29 mmHg assuming a right atrial pressure of 8 mmHg.
6. Thickened pericardium with trivial effusion.
7. Compared to a prior transthoracic echocardiogram study from 04/25/25 The PA pressure has decreased from 52 to to 29 mmHg.
PFT's:
Reports and relevant images were personally reviewed.
Total time spent on this consultation/encounter __53__ minutes which includes review of history, physical exam, medications, laboratory data, personal review of imaging, extensive review of outpatient records, discussion with care team and
respiratory therapy.
Subjective Data
-
Date of Service:
Date of Service: May 23, 2025
Chief Complaint: Pulmonary Follow Up and Dyspnea Follow Up
Subjective:
She still has complaints of shortness of breath, sitting in chair
Remains on 2 to 3 L nasal cannula
Objective Data
Data Reviewed
Vital Signs / I&O / Oxygen:
Vital Signs
Temp Pulse Resp BP Pulse Ox
98.2 F 69 16 158/71 96
05/23/25 07:30 05/23/25 08:24 05/23/25 07:30 05/23/25 08:24 05/23/25 03:39
Intake and Output
05/22/25 05/23/25 05/24/25
06:59 06:59 06:59
Intake Total 480 / 480 1020 / 1020
Output Total 1400 / 1400
Balance -920 / -920 1020 / 1020
SaO2 [CPAP/PSV] 96
SaO2 [A/C] 98
SaO2 96
Nasal Cannula flow liters per 3
minute
Physical Exam
General: Respiratory Distress (n) and Comfortable
HEENT: Normocephalic, Anicteric, Moist Mucous Membranes, Thrush and Other (Oral thrush)
Cardiovascular: Regular Rhythm
Respiratory: Wheeze (slight L sided), Crackles (Basilar), Rhonchi (None), Non-Labored Respirations and Accessory Resp Muscle Use (n)
GI: Soft, Non Distended and Non Tender
Neurology: Awake, Alert and No Motor Deficits
Skin: Warm, Good Color, Cyanosis (n), Jaundice (n) and Rash (n)
Labs/Micro/Reports
Lab Data
05/23/25 05:49
05/23/25 05:49
--- NOTE | 2025-05-23 10:32 | W.PN.HOSP.TC ---
Today's Communication/Plan
-
leukocytosis 2/2 steroids - improving off Abx
CM for STR
Assessment / Plan
Assessment / Plan
69yo F with PMHx of anxiety, COPD, DM, chronic back pain, CKD stage 3b, Hx of CVA, lung CA s/p minimally invasive wedge resection for Stage IA right lower lobe lung cancer on 04/15/2025 with hemothorax complications afterwards, DVT and pulmonary
embolism on ELiquis, HFpEF, was sent to rehab 5 days prior to admission and developed worsening dyspnea with R chest pain and hypoxia, in ED found significant R sided hemothorax with possible pneumonia s/p chest tube on 05/11/25, IVC filter on
05/12/25 and s/p hematoma evacuation by on 05/14/25 remained intubated for lung reexpansion
A/P
#Acute hypoxic respiratory failure 2/2 #R sided hemothorax with mediastinal shift most likely 2/2 Eliquis postOP 2/2 lung CA
#COPD exacerbation
wean off O2
cont prednisone taper and bronchodilators
Pulmonary consult
Chest surgery consult: hematoma evacuation on 05/14/25, remained intubated for lung reinflation post OP�extubated 05/16
Follow Hgb, transfuse as needed to keep Hgb >7
Pleural fluid cultures negative, discontinue antibiotics-PT/OT
Wean Pain regimen - down to .25 Dilaudid iv prn
#Oral Thrush
fluconazole
#Recent Acute DVT and PE
s/p IVC filter on 05/12/25
LE US w/o DVT
Not a candidate for anticoagulation due to recurrent hemothorax, discussing with surgical team appropriate timeline to restart: they defer to slab puller. Reasonable for outpatient f/u as patient developed significant hemothorax well after the
surgery, so considered high risk to rebleed
normal RV function on TTE on 05/11/25
#Hypotension
IVF, transfuse PRBC to keep Hgb close to 8
follow BP trend
#Chronic HFpEF
#Essential HTN
not in exacerbation
resume lasix 05/19
#Chronic back pain 2/2 DJD s/p Sx
cont home regimen
PT/OT
Wean IV pain regimen as tolerated
#Stage 2 left medial buttock pressure injury, POA
Wound care
#CKD stage 3b
Cr stable 1.4-1.5
follow Cr
Resume lasix and monitor
#DM type 2 with nephropathy
Accuchecks, Insulin SS, hold bolus while NPO
DM diet when ready
#Acute blood loss anemia
Secondary to hemothorax, exacerbated with anticoagulation
Hemoglobin stable
Monitor off anticoagulation
#2 cm low-density lesion in the superior right lobe the liver
hemangioma as per radiologist
#History of non-small cell lung cancer
S/p minimally invasive right lower lobe wedge resection by Dr. Banuelos on 04/15/2025
Resume outpatient follow-up
#Benign thyroid nodule
stable since 2009
DVT ppx SCDs
Full code
I have spent at least 36min reviewing chcart, test results, communication with consultants and providing direct patient care
Anticipated Discharge: Within 24 hours
Subjective/Interval History
-
Date of Service: May 23, 2025
Objective Data
-
Labs:
Laboratory Results
05/23/25
05:49
WBC 15.8 H
Hgb 9.5 L
Hct 29.7 L
Plt Count 313
Sodium 132 L
Potassium 3.7
Chloride 100
Carbon Dioxide 31 H
BUN 25 H
Creatinine 0.9
Glucose 159 H
Calcium 9.3
Total Bilirubin 0.6
AST 21
ALT 15
Alkaline Phosphatase 65
Vital Signs:
Vital Signs
Temp Pulse Resp BP Pulse Ox
98.2 F 69 16 158/71 98
05/23/25 07:30 05/23/25 08:24 05/23/25 08:10 05/23/25 08:24 05/23/25 08:10
I&O
05/22/25 05/23/25 05/24/25
06:59 06:59 06:59
Intake Total 480 / 480 1020 / 1020
Output Total 1400 / 1400
Balance -920 / -920 1020 / 1020
Review of Systems
-
History Source: Patient
All other systems: Reviewed and negative
Cardiac: Reports Chest Pain (pleuritic on R)
Physical Exam
-
General: No Apparent Distress
HEENT: Normocephalic
Respiratory: Clear to Auscultation
Cardiac: Regular Rhythm
GI: Soft, Nontender and Nondistended
Musculoskeletal: No Clubbing, No Cyanosis and No Edema
Skin: Warm
Neuro: Awake, Alert, Oriented and AO x 3
Psych: Calm
[2025-05-23 11:12] VITALS: BP 157/68; PULSE 83; O2SAT 89
[2025-05-23 11:16] VITALS: BP 157/68; PULSE 96; O2SAT 89
[2025-05-23 11:20] VITALS: BP 143/73
[2025-05-23] MEDS: MORPHINE SULFATE 15 MG PO ×2 (11:36→17:01)
[2025-05-23] MEDS: ZETIA 10 MG PO (11:36)
[2025-05-23 12:40] LABS: Glucose - Point of Care 246 mg/dl (70-99)
[2025-05-23] MEDS: NOVOLOG FLEXPEN-LOW RESISTANCE 2 UNITS SC (12:47)
--- NOTE | 2025-05-23 12:49 | CM ---
Addendum entered by Montserrat Monroe 05/23/25 13:29:
Call back from dtr- update
She requested medical update from attending- TT to attending
Original Note:
CM reviewed pt with attending-medically ready for dc
SNF confirmed at [facility] with admissions liaison
Bedside meeting with pt who is in agreement with plan
Pt has Med A secondary- IMM verbally reviewed, copy provided
Auth obtained through [facility]
SNF- [id number] 05/23-/05/27 NRD/LCD (p) [phone]
[facility] Acute Care- [id number]
Per request, VMs left for both spouse and dtr/Eula
Updated clinicals along with PASRR sent to [facility] via [facility] Port
Discharge Disposition- [facility] SNF via BLS
Phone- [phone] ext. [phone] Fax- [phone]
[2025-05-23] MEDS: LASIX 60 MG IV (13:58)
[2025-05-23] MEDS: ROXICODONE 5 MG PO (14:06)
--- NOTE | 2025-05-23 14:37 | W.DCSUMMARY ---
Discharge Summary
Discharge Data
Date of Admission: 05/11/25
Date of Discharge: 05/23/25
-
Pending Results: No
Hospital Course
69yo F with PMHx of anxiety, COPD, DM, chronic back pain, CKD stage 3b, Hx of CVA, lung CA s/p minimally invasive wedge resection for Stage IA right lower lobe lung cancer on 04/15/2025 with hemothorax complications afterwards, DVT and pulmonary
embolism on ELiquis, HFpEF, was sent to rehab 5 days prior to admission and developed worsening dyspnea with R chest pain and hypoxia, in ED found significant R sided hemothorax with possible pneumonia s/p chest tube on 05/11/25, IVC filter on
05/12/25 and s/p hematoma evacuation by on 05/14/25 remained intubated for lung reexpansion, extubated and tolerated weaning offO2 to 2-3L well. Anticoagulation planned to be held until outpatient visit to jazz singer as agreed with surgeon.
Weight 92kg -similar to dry weight on prior admissions at the day of d/c. Medically stable for d/c to rehab. Continue tapering down prednisone and outpatient follow up with pulm advised. PCP to continue to adjust insulin as doses were decreased as
per trend on current admission. Discussed in great details with patient at the day of D/C
I have spent at least 36min reviewing chart, test results, communication with consultants and providing direct patient care
Patient was managed for
#Acute hypoxic respiratory failure 2/2 #R sided hemothorax with mediastinal shift most likely 2/2 Eliquis postOP 2/2 lung CA
#COPD exacerbation
#Oral Thrush
#Recent Acute DVT and PE
#Hypotension
#Chronic HFpEF
#Essential HTN
#Chronic back pain 2/2 DJD s/p Sx
#Stage 2 left medial buttock pressure injury, POA
#CKD stage 3b
#DM type 2 with nephropathy
#Acute blood loss anemia
#2 cm low-density lesion in the superior right lobe the liver
#History of non-small cell lung cancer
#Benign thyroid nodule
Discharge Plan
-
Patient Disposition: [facility]/SNF
Discharge Diagnosis/Procedures: Hemothorax
Diet: Diabetic, Carb Controlled
Activity: As tolerated
Referrals:
Abdullahi Richter DO [Active, Hematology / Oncology] - in one to two weeks
Referral Note: discuss need in restart of anticoagulation - requested by
Camryn Tolbert DO [Active, Pulmonary Medicine] - in two weeks
Referral Note: PFT
Darek Black MD [Family Provider] - in less than 1 week
Referral Note: continue insulin adjustment - doses decreased from prior
Riky Banuelos MD [Active, Surgical] - in one to two weeks
Prescriptions:
New
prednisone 10 mg Tablet
10 mg PO DIRECTED Qty: 18 0RF
Rx Instructions:
take 30mg daily for 3 days then take 20mg daily for 3 days then 10mg daily for 3 days and stop
nystatin 100,000 unit/mL Suspension
5 ml PO QID Qty: 60 0RF
Rx Instructions:
continue for 7 days
oxycodone 5 mg Tablet
5 mg PO Q6HPRN PRN (Reason: moderate-severe pain) Qty: 12 0RF
Continued
carvedilol 6.25 mg Tablet
6.25 mg PO Q12H
acetaminophen [Tylenol Extra Strength] 500 mg Tablet
1,000 mg PO Q6HPRN PRN (Reason: mild pain)
albuterol sulfate [Ventolin HFA] 90 mcg/actuation Hfa Aerosol Inhaler
2 puff INHALATION R Q4HPRN PRN (Reason: sob)
ezetimibe 10 mg tablet
10 mg PO DAILY@1200
ergocalciferol (vitamin D2) [Vitamin D2] 1,250 mcg (50,000 unit) Capsule
1,250 mcg PO RODRIGUEZ
guaifenesin [Mucinex] 600 mg Tablet Extended Release 12hr
600 mg PO BID
fluticasone propion-salmeterol [Advair Diskus] 250-50 mcg/dose Blister With Device
1 inh INHALATION R BID
atorvastatin [Lipitor] 80 mg Tablet
80 mg PO HS
fenofibrate micronized 200 mg Capsule
200 mg PO DAILY
zinc oxide 20 % Ointment
1 applic TOPICAL BID
magnesium hydroxide [Milk of Magnesia] 400 mg/5 mL Suspension
2,400 mg PO [id number] PRN (Reason: constipation)
bisacodyl [Dulcolax (bisacodyl)] 10 mg Suppository
10 mg DC DAILYPRN PRN (Reason: if no bm aftr mom)
Fleet Enema 19-7 gram/118 mL Enema
118 ml DC DAILYPRN PRN (Reason: if no bm aftr dulcolax)
docusate sodium [Colace] 100 mg Capsule
100 mg PO BID
ipratropium-albuterol 0.5 mg-3 mg(2.5 mg base)/3 mL solution for nebulization
3 ml inhalation R QID
polyethylene glycol 3350 17 gram powder in packet
17 g PO HS
furosemide 80 mg tablet
80 mg PO DAILY
lidocaine [Lidoderm] 5 % adhesive patch,medicated
1 patch topical DAILY
morphine 15 mg tablet extended release
15 mg PO Q12H Qty: 6 0RF
Changed
insulin aspart U-100 100 unit/mL (3 mL) insulin pen
3 unit SC AC Qty: 0 0RF
insulin glargine [Lantus Solostar U-100 Insulin] 100 unit/mL (3 mL) Insulin Pen
10 unit SC HS Qty: 0 0RF
Held
Eliquis 5 mg tablet
5 mg PO BID
Hold Instructions: Until discussed with jazz singer
Discontinued
oxycodone 20 mg Tablet
20 mg PO Q8HPRN PRN (Reason: severe pains)
Discharge Orders:
Discharge Patient (As Directed); Ordered 05/23/25
Ordered By: Bal Allen
Discharge Date and Time
Print Language: SYRIAN
[2025-05-23 15:20] VITALS: BP 137/72
[2025-05-23] MEDS: MYCOSTATIN ORAL SUSPENSION 5 ML PO (17:01)
[2025-05-23] MEDS: NOVOLOG FLEXPEN SC ×2 (17:04→17:40)
[2025-05-23 17:05] LABS: Glucose - Point of Care 334 mg/dl (70-99)
[2025-05-23] MEDS: NOVOLOG FLEXPEN-LOW RESISTANCE 4 UNITS SC (17:05)
--- NOTE | 2025-05-23 17:44 | PTCARENOTE ---
Patient discharged to [facility], report called to Renata at facility by this RN, patient transported via [facility]. Belongings gathered at bedside and handed to transport team. IV and tele pack removed. Patient's dinnertime blood sugar 334,
transport arrived at time of dinner, patient unable to eat whole meal, covered with sliding scale insulin prior to transport. Facility made aware.
== END 2025-05-23 17:55 | DRG 163 ==
LOC: 2 NORTH 18:22
PROVIDERS: Internal Medicine; Nurse Practitioner Primary Care; Radiology Diagnostic Radiology; Radiology Vascular & Interventional Radiology; ADMITTING PHYSICIAN Student in an Organized Health Care Education/Training Program; ATTENDING PHYSICIAN Internal Medicine; CONSULT PHYSICIAN Internal Medicine Critical Care Medicine; CONSULT PHYSICIAN Surgery; EMERGENCY PHYSICIAN Emergency Medicine; FAMILY PHYSICIAN Internal Medicine
PROC: 0W9930Z Drainage of Right Pleural Cavity with Drainage Device, Percutaneous Approach (ICD-10-PCS; 2025-05-11)
PROC: 30243N1 Transfusion of Nonautologous Red Blood Cells into Central Vein, Percutaneous Approach (ICD-10-PCS; 2025-05-12)
PROC: 06H03DZ Insertion of Intraluminal Device into Inferior Vena Cava, Percutaneous Approach (ICD-10-PCS; 2025-05-12)
PROC: B5191ZA Fluoroscopy of Inferior Vena Cava using Low Osmolar Contrast, Guidance (ICD-10-PCS; 2025-05-12)
PROC: 0BH17EZ Insertion of Endotracheal Airway into Trachea, Via Natural or Artificial Opening (ICD-10-PCS; 2025-05-14)
PROC: 0BJK4ZZ Inspection of Right Lung, Percutaneous Endoscopic Approach (ICD-10-PCS; 2025-05-14)
PROC: 0DH67UZ Insertion of Feeding Device into Stomach, Via Natural or Artificial Opening (ICD-10-PCS; 2025-05-14)
PROC: 5A1945Z Respiratory Ventilation, 24-96 Consecutive Hours (ICD-10-PCS; 2025-05-14)
PROC: 0BCK0ZZ Extirpation of Matter from Right Lung, Open Approach (ICD-10-PCS; 2025-05-14)
PROC: 0WP9X0Z Removal of Drainage Device from Right Pleural Cavity, External Approach (ICD-10-PCS; 2025-05-19)
DX: J94.2 Hemothorax (principal); I26.99 Other pulmonary embolism without acute cor pulmonale; J18.9 Pneumonia, unspecified organism; J96.01 Acute respiratory failure with hypoxia; F11.20 Opioid dependence, uncomplicated; I50.32 Chronic diastolic (congestive) heart failure; I13.0 Hypertensive heart and chronic kidney disease with heart failure and stage 1 through stage 4 chronic kidney disease, or unspecified chronic kidney disease; C34.31 Malignant neoplasm of lower lobe, right bronchus or lung; J44.1 Chronic obstructive pulmonary disease with (acute) exacerbation; E87.20 Acidosis, unspecified; J95.830 Postprocedural hemorrhage of a respiratory system organ or structure following a respiratory system procedure; D62 Acute posthemorrhagic anemia; J44.0 Chronic obstructive pulmonary disease with (acute) lower respiratory infection; D68.32 Hemorrhagic disorder due to extrinsic circulating anticoagulants; B37.0 Candidal stomatitis; M54.50 Low back pain, unspecified; N28.1 Cyst of kidney, acquired; N18.32 Chronic kidney disease, stage 3b; E78.00 Pure hypercholesterolemia, unspecified; I95.89 Other hypotension; F41.9 Anxiety disorder, unspecified; M54.9 Dorsalgia, unspecified; G89.4 Chronic pain syndrome; E11.22 Type 2 diabetes mellitus with diabetic chronic kidney disease; Y83.8 Other surgical procedures as the cause of abnormal reaction of the patient, or of later complication, without mention of misadventure at the time of the procedure; Y92.239 Unspecified place in hospital as the place of occurrence of the external cause; E04.2 Nontoxic multinodular goiter; J94.1 Fibrothorax; L89.322 Pressure ulcer of left buttock, stage 2; D18.03 Hemangioma of intra-abdominal structures; E66.9 Obesity, unspecified; I70.0 Atherosclerosis of aorta; Z86.718 Personal history of other venous thrombosis and embolism; Z79.01 Long term (current) use of anticoagulants; Z68.37 Body mass index [BMI] 37.0-37.9, adult; Z87.442 Personal history of urinary calculi; Z86.73 Personal history of transient ischemic attack (TIA), and cerebral infarction without residual deficits; Z90.2 Acquired absence of lung [part of]; Z86.79 Personal history of other diseases of the circulatory system; Z79.899 Other long term (current) drug therapy; Z86.711 Personal history of pulmonary embolism; Z11.52 Encounter for screening for COVID-19; Z85.118 Personal history of other malignant neoplasm of bronchus and lung; Z87.891 Personal history of nicotine dependence; Z88.6 Allergy status to analgesic agent; Z88.1 Allergy status to other antibiotic agents; Z79.4 Long term (current) use of insulin; Z79.51 Long term (current) use of inhaled steroids
CPT/HCPCS: 32555; 32557; 36600; 37191; 71045; 71250; 71275; 74018; 80048; 80053; 80202; 82805; 82945; 82962; 83605; 83615; 83735; 83880; 83986; 84100; 84157; 84478; 84484; 85014; 85018; 85025; 85027; 85610; 85730; 86803; 86850; 86900; 86901; 86920; 87015; 87040; 87070; 87102; 87116; 87205; 87502; 87641; 87811; 88112; 88305; 89051; 93005; 93308; 93321; 93325; 93970; 94002; 94003; 94640; 96365; 96366; 96375; 97163; 97167; 97530; 97535; 99152; 99153; 99291; C1729; C1769; C1880; P9016; Q9967

== ENCOUNTER 2025-05-29 18:14 | Inpatient (IN) | payer BC, SELFPAY ==
[2025-05-29] VITALS (14 sets, daily range): BP systolic 106–145; BP diastolic 53–97; BMI 36.3; BMI 35.3
--- NOTE | 2025-05-29 14:42 | ED.GENMED ---
Addendum entered and electronically signed by Javon Moore DO 05/29/25 21:29:
CRITICAL CARE STATEMENT: A total of 40 minutes of critical care time was provided for this patient. This includes management of unstable vital signs, evaluation of the patient at bedside, reviewing the patient's pertinent medical records discussion
with EMS providers and patient's family in addition to discussion with consultants, review of old EKGs and review of pertinent medical records. This time with separate from time utilized to perform the aforementioned documented procedures
Original Note:
History of Present Illness
General
Chief Complaint: DVT/Possible Blood Clot
Source: patient, records, spouse and previous hospital records
Exam Limitations: none
Time Seen by Provider: 05/29/25 14:12
Nursing documentation reviewed up to this point in time: agreed with
History of Present Illness
History of Present Illness:
69-year-old female presents with increased pain and swelling of the right lower extremity for 4 days, subacute onset of increased shortness of breath, she status post lobectomy by Dr. Banuelos subsequently developed DVT with hemothorax thought to be due
to anticoagulation IVC filter was placed anticoagulation was stopped discharged to rehab facility she has had ongoing shortness of breath at the rehab facility but states it worsened over the past few days increased oxygen requirement
Past History
Past History
ED Past Medical History: Asthma, Cancer (Left upper lobe lung cancer status post left upper lobe resection 2022. Right lower lobe lung cancer status post wedge resection right lower lobe and mediastinal lymph node dissection April 15, 2025), CVA
(Aneurysm), HTN, Hypercholesterolemia, NIDDM, Other (Chronic low back pain, narcotic dependent) and Other (History of renal stones and renal cyst)
ED Past Surgical History: Brain (Titanium clip for brain aneurysm), Orthopedic (Lumbar surgery) and Other (Left upper lung resection 2022, right lung biopsy, right lower lobe wedge resection with mediastinal lymph node dissection April 15, 2025)
Patient has exhibited threatening behavior?: No
Social History
Tobacco: Former smoker
Alcohol: None
Drug: None
Personal:
Living: with family
Employment: Retired
Family History
Family History: Other (Noncontributory)
Review of Systems
Review of Systems
All Other Systems: Not applicable
Constitutional: Denies fever or fatigue
EENT: Reports no symptoms
Respiratory: Reports trouble breathing; Denies cough
Cardiac: Reports no symptoms; Denies chest pain
Musculoskeletal: Reports muscle stiffness, edema and back pain
Neurological: Reports weakness
Phy Exam
Physical Exam
Physical Exam:
Physical Exam
General: Chronically ill-appearing female lying flat
Neck: No jaw
Heart: s1/s2 regular rate and rhythm, no murmur. equal radial pulses.
Lungs: Shallow respirations no wheeze
Abdomen: Not tender
Neuro: alert and oriented. no focal neurological deficits
Skin: no rash
Psychiatric: well kept. interactive and cooperative
Extremities: Marked swelling of the right lower extremity calf
Course
Orders/Labs/Results
Orders:
Orders
05/29/25 14:14
Electrocardiogram (*1) Stat
Reason for Study: Other
Other Reason for Exam: chest pain
Cardiac Monitoring- Treatment ONCE
EKG- Treatment ONCE
CR Chest - 2 Views Urgent
Comment:
Reason For Exam: sob
05/29/25 14:26
HYDROmorphone [Dilaudid] 0.5 mg IV NOW STA
US Periph Venous LOWER Ext RT Urgent
Comment:
Reason For Exam: swelling
05/29/25 15:52
Complete Blood Count/With Diff Urgent
Comprehensive Metabolic Panel Urgent
Magnesium Urgent
NT-proBNP Urgent
TSH Urgent
Troponin I Urgent
Abnormal Lab Results
05/29/25
15:52
WBC 16.8 H 10^3/uL
(4.8-10.8)
RBC 3.83 L 10^6/uL
(4.20-5.40)
Hgb 11.3 L g/dL
(12.0-16.0)
Hct 35.9 L %
(37.0-47.0)
MCHC 31.5 L g/dL
(33.0-37.0)
RDW 16.9 H %
(11.5-14.5)
Sodium 131 L mmol/L
(135-145)
Chloride 92 L mmol/L
(98-107)
Carbon Dioxide 31 H mmol/L
(22-30)
BUN 34 H mg/dl
(7-17)
Creatinine 1.1 H mg/dL
(0.6-1.0)
Glucose 204 H mg/dl
(70-99)
05/29/25 15:52
05/29/25 15:52
Vital Signs
Initial and Last Documented VS:
Initial Vital Signs
Temp Pulse Resp BP Pulse Ox
98.4 F 75 18 110/71 98
05/29/25 13:27 05/29/25 13:27 05/29/25 13:27 05/29/25 13:27 05/29/25 13:27
Last Documented Vital Signs
Temp Pulse Resp BP Pulse Ox
98.4 F 65 16 126/64 96
05/29/25 13:27 05/29/25 16:00 05/29/25 16:00 05/29/25 16:00 05/29/25 16:00
MDM/Problems Addressed
Differential Diagnosis Includes:
Symptomatic DVT pleural effusion heart failure PE less likely but possible
MDM/Problems Addressed:
Calf pain shortness of
Chronic conditions affecting care: DM, HTN, COPD and Cancer
Acute Exacerbation and/or Progression of Chronic Illness: DM, HTN and COPD
*Radiology
Radiology exam reviewed: preliminary read by ED provider and other (Effusion, DVT)
*Pulse Oximetry
SaO2: 98
Nasal Cannula flow liters per minute: 4
Patient hypoxic: no
*EKG
Interpreted by ED Provider?: Yes
Interpretation: normal
Comparison EKG: no comparison EKG present
Heart Rate: 78
Rate: normal
Rhythm: sinus
Ischemia: no ischemia
*Account Liaison Interpretation
Rate: normal
Interpretation: normal
Heart Rate: 78
Rhythm: sinus
*Critical Care Note
Total Time (30-74mins, 75-104mins- exclusive of procedures): Not Applicable
Data Reviewed
Review of Other/Old Records Reveals: Labs, Radiology Studies, Operative Reports, Progress Notes and Discharge Summary
Source: patient, records and spouse
Update Note
Update Note:
3:45 PM update chest x-ray looks like a recurrent effusion versus infiltrate, verbal report from radiology extensive DVT
4:40 PM labs noted message sent to pulmonary hospitalist BRIANNA and Dr. Banuelos treating surgeon
ED Attending Note
-
Portions of this chart may have been created with voice recognition software.� Occasional wrong word or��sound alike� substitutions may have occurred due to the inherent limitations of voice recognition software.
Discharge Plan
Departure
Patient Disposition: Admit
Date of Disposition: 05/29/25
Time of Disposition: 16:40
Admit to: Med/Surg
Presentation/result/management discussed w/ accepting MD/DO: Hospitalist
Patient with high blood pressure during this ER visit?: No
Condition: Fair
Discharge Problem:
Pleural effusion, DVT
Prescriptions:
No Action
carvedilol 6.25 mg Tablet
6.25 mg PO Q12H
albuterol sulfate [Ventolin HFA] 90 mcg/actuation Hfa Aerosol Inhaler
2 puff INHALATION R Q4HPRN PRN (Reason: sob)
ezetimibe 10 mg tablet
10 mg PO DAILY
ergocalciferol (vitamin D2) [Vitamin D2] 1,250 mcg (50,000 unit) Capsule
1,250 mcg PO RODRIGUEZ
guaifenesin [Mucinex] 600 mg Tablet Extended Release 12hr
600 mg PO BID
fluticasone propion-salmeterol [Advair Diskus] 250-50 mcg/dose Blister With Device
1 inh INHALATION R BID
atorvastatin [Lipitor] 80 mg Tablet
80 mg PO DAILY
fenofibrate micronized 200 mg Capsule
200 mg PO DAILY
zinc oxide 20 % Ointment
1 applic TOPICAL BID
magnesium hydroxide [Milk of Magnesia] 400 mg/5 mL Suspension
2,400 mg PO [id number] PRN (Reason: constipation)
bisacodyl [Dulcolax (bisacodyl)] 10 mg Suppository
10 mg RI DAILYPRN PRN (Reason: if no bm in 4 days, give day 5)
Fleet Enema 19-7 gram/118 mL Enema
118 ml RI DAILYPRN PRN (Reason: if no bm in 5 days, give on day 6)
docusate sodium [Colace] 100 mg Capsule
100 mg PO BID
ipratropium-albuterol 0.5 mg-3 mg(2.5 mg base)/3 mL solution for nebulization
3 ml inhalation R QID
polyethylene glycol 3350 17 gram powder in packet
17 g PO DAILY
furosemide 80 mg tablet
80 mg PO DAILY
nystatin 100,000 unit/mL Suspension
5 ml PO QID Qty: 60 0RF
Rx Instructions:
start 05/23/05 and continue for 7 days
oxycodone 5 mg Tablet
5 mg PO Q6HPRN PRN (Reason: moderate-severe pain) Qty: 12 0RF
morphine 15 mg tablet extended release
15 mg PO Q12H Qty: 6 0RF
acetaminophen 325 mg Tablet
650 mg PO Q4H PRN (Reason: mild pain/fever)
prednisone 10 mg Tablet
20 mg PO DAILY
Rx Instructions:
begin 05/27/25 x 3 days
lidocaine 4 % Adhesive Patch,Medicated
1 patch TOPICAL DAILY
ondansetron HCl 4 mg Tablet
4 mg PO Q6H PRN (Reason: n/v)
prednisone 10 mg tablet
10 mg PO DAILY
Rx Instructions:
starting 05/30/25 x 3 days
insulin aspart U-100 100 unit/mL (3 mL) insulin pen
SC ACHS
Rx Instructions:
sliding scale: 0-199=0 units
200-250=3 units
251-300=5 units
301-350=7 units
351-400=9 units
401-999=10 units
insulin glargine [Lantus Solostar U-100 Insulin] 100 unit/mL (3 mL) insulin pen
10 unit SC DAILY
Referrals:
Irving Pagan, DO [Family Provider, Family Practice]
Interventions
Interventions:
*Risk Screen - Suicide Last Done: 05/29/25 13:27
*General Assessment Last Done: 05/29/25 13:27
*Neglect/Abuse Screening Last Done: 05/29/25 13:27
ED- Cardiac Assessment Last Done: 05/29/25 15:31
ED- Pulmonary Assessment Last Done: 05/29/25 15:31
ED-Peripheral Vascular Assessment Last Done: 05/29/25 15:31
ED-Skin Assessment Last Done: 05/29/25 15:31
Discharge Date and Time
Print Language: BENINESE
[2025-05-29] MEDS: DILAUDID 0.5 MG IV ×2 (15:53→18:10)
[2025-05-29 16:12] LABS: Hematocrit 35.9 % (37.0-47.0); Hemoglobin 11.3 g/dL (12.0-16.0); Mean Corp Hgb Conc. 31.5 g/dL (33.0-37.0); Mean Corpuscular Volume 93.7 fL (81.0-99.0); Platelet Count 191 10^3/uL (130-400); Red Cell Dist. Width 16.9 % (11.5-14.5)
[2025-05-29 16:23] LABS: ALT (SGPT) 18 U/L (0-35); AST (SGOT) 23 U/L (14-36); Albumin 4.0 g/dl (3.5-5.0); Alkaline Phosphatase 72 U/L (38-126); Blood Urea Nitrogen 34 mg/dl (7-17); Calcium 9.1 mg/dl (8.4-10.2); Carbon Dioxide 31 mmol/L (22-30); Chloride 92 mmol/L (98-107); Estimated Creatinine Clearance 50 ml/min; Glucose 204 mg/dl (70-99); Magnesium 1.6 mg/dl (1.6-2.3); Potassium 4.2 mmol/L (3.5-5.1); Sodium 131 mmol/L (135-145); Total Protein 7.2 g/dl (6.3-8.2); eGFR 54.06
[2025-05-29 16:31] LABS: Troponin I < 0.012 ng/ml
[2025-05-29 16:52] LABS: TSH 1.42 uIU/ml (0.47-4.68)
[2025-05-29 17:31] LABS: APTT 27.1 Sec (23.4-35.0)
--- NOTE | 2025-05-29 17:56 | HPS.HSE ---
Family Physician
-
Family Physician: Irving Pagan
Chief Complaint
-
right leg pain
History of Present Illness
69-year-old female past medical history of COPD, right-sided hemothorax, lung cancer status post minimally invasive wedge resection on 04/15 complicated by hemothorax, DVT/pulm embolism on Eliquis, chronic HFpEF, CKD 3B, diabetes, diabetic
nephropathy, chronic back pain, history of CVA, buttock pressure injury, 2 cm low-density lesion of superior right lower lobe of liver, presenting with increased pain and swelling of the right lower extremity for the past 4 days, presenting with
right lower extremity swelling and pain that started few days ago.
Patient also with ongoing shortness of breath. After patient was recently discharged she was discharged on 2 L but this was increased to 4 L at rehab. She denies any cough. Did have some pain over the left chest earlier today.
Patient underwent minimally invasive wedge resection for stage Ia right lower lobe lung cancer on 04/15 which was complicated by hemothorax.
Patient was recently admitted from 05/11 to 05/23 for shortness of breath and right chest pain and hypoxemia. �She was found to have significant right-sided hemothorax and possible pneumonia status post chest tube on 05/11, IVC filter on 05/12 and
hematoma evacuation by Dr. Banuelos on 05/14. �Anticoagulation was held on discharge with plan to follow-up with hematology.
Medical History
Past Medical History
Past Medical History: Reports Other (COPD, right-sided hemothorax, lung cancer status post minimally invasive wedge resection on 04/15 complicated by hemothorax, DVT/pulm embolism on Eliquis, chronic HFpEF, CKD 3B, diabetes, diabetic nephropathy,
chronic back pain, history of CVA, buttock pressure injury, 2 cm low-density lesion of sup)
Past Surgical History: Reports Other (faheem cancer status post minimally invasive wedge resection on 04/15 )
Social History
Tobacco: Non-smoker
Alcohol: None
Drug: None
Family History
Family History: Not pertinent
Allergies / Home Medications
Allergies reflects when Allergies were last updated in [facility].
Home Medications with original date entered in [facility]
Allergy/Medication List:
Allergies
Allergy/AdvReac Type Severity Reaction Status Date / Time
aspirin AdvReac Nausea / Verified 05/29/25 13:27
Vomiting
erythromycin base AdvReac Nausea / Verified 05/29/25 13:27
Vomiting
NSAIDS (Non-Steroidal AdvReac Nausea / Verified 05/29/25 13:27
Anti-Inflamma Vomiting
Salicylates * AdvReac Nausea / Verified 05/29/25 13:27
Vomiting
Home Medications
albuterol sulfate 90 mcg/actuation aerosol inhaler (Ventolin HFA) 2 puff inhalation R Q4HPRN PRN sob 12/28/24
carvedilol 6.25 mg tablet 6.25 mg PO Q12H Blood Pressure 12/28/24
ezetimibe 10 mg tablet 10 mg PO DAILY High Cholesterol 12/28/24
ergocalciferol (vitamin D2) 1,250 mcg (50,000 unit) capsule (Vitamin D2) 1,250 mcg PO RODRIGUEZ Supplement 04/08/25
guaifenesin 600 mg tablet, extended release 12 hr (Mucinex) 600 mg PO BID Congestion 04/08/25
fluticasone 250 mcg-salmeterol 50 mcg/dose blistr powdr for inhalation (Advair Diskus) 1 inh inhalation R BID Lung/Breathing Issues 04/15/25
atorvastatin 80 mg tablet (Lipitor) 80 mg PO DAILY High Cholesterol 05/11/25
bisacodyl 10 mg rectal suppository (Dulcolax (bisacodyl)) 10 mg CA DAILYPRN PRN if no bm in 4 days, give day 5 05/11/25
docusate sodium 100 mg capsule (Colace) 100 mg PO BID Constipation 05/11/25
fenofibrate micronized 200 mg capsule 200 mg PO DAILY High Cholesterol 05/11/25
furosemide 80 mg tablet 80 mg PO DAILY Fluid Retention/Swelling 05/11/25
ipratropium 0.5 mg-albuterol 3 mg (2.5 mg base)/3 mL nebulization soln 3 ml inhalation R QID Lung/Breathing Issues 05/11/25
magnesium hydroxide 400 mg/5 mL oral suspension (Milk of Magnesia) 2,400 mg PO [id number] PRN constipation 05/11/25
polyethylene glycol 3350 17 gram oral powder packet 17 g PO DAILY Constipation 05/11/25
sodium phosphates 19 gram-7 gram/118 mL enema (Fleet Enema) 118 ml CA DAILYPRN PRN if no bm in 5 days, give on day 6 05/11/25
zinc oxide 20 % topical ointment 1 applic topical BID sacral wound 05/11/25
morphine 15 mg tablet,extended release 15 mg PO Q12H severe Pain #6 tabs 05/23/25
nystatin 100,000 unit/mL oral suspension 5 ml PO QID #60 mL 05/23/25
oxycodone 5 mg tablet 5 mg PO Q6HPRN PRN moderate-severe pain #12 tabs 05/23/25
acetaminophen 325 mg tablet 650 mg PO Q4H PRN mild pain/fever 05/29/25
insulin aspart U-100 100 unit/mL (3 mL) subcutaneous pen See Rx Instructions .Route .COMPLEX Diabetes 05/29/25
insulin glargine 100 unit/mL (3 mL) subcutaneous pen (Lantus Solostar U-100 Insulin) 10 unit SC DAILY Diabetes 05/29/25
lidocaine 4 % topical patch 1 patch topical DAILY lower back pain 05/29/25
ondansetron HCl 4 mg tablet 4 mg PO Q6H PRN n/v 05/29/25
prednisone 10 mg tablet 10 mg PO DAILY 05/29/25
prednisone 10 mg tablet 20 mg PO DAILY 05/29/25
Review of Systems
-
Constitutional: Reports No Symptoms
EENT: Reports No Symptoms
Respiratory: Reports No Symptoms
Cardiac: Reports No Symptoms
Abdomen/GI: Reports No Symptoms
: Reports No Symptoms
Musculoskeletal: Reports No Symptoms
Skin: Reports No Symptoms
Neurological: Reports No Symptoms
Endocrine: Reports No Symptoms
Hematologic/Lymphatic: Reports No Symptoms
Psych: Reports No Symptoms
Physical Exam
Vital Signs
Vital Signs
Temp Pulse Resp BP Pulse Ox
98.4 F 64 18 135/71 98
05/29/25 13:27 05/29/25 17:30 05/29/25 17:30 05/29/25 17:00 05/29/25 17:15
Physical Exam
General: Well Developed, Well Nourished and No Apparent Distress
HEENT: NormoCephalic, Moist mucous membranes and Atraumatic
Respiratory: Clear
Cardiac: S1/S2 and Regular Rhythm; No Murmur or Rub
GI: Soft, Non Tender, Non Distended and Normal Bowel Sounds; No Organomegaly
Rectal: Deferred by Provider
Musculoskeletal: No Clubbing, No Cyanosis and No Edema
Skin: No Rash
Neuro: Nonfocal/grossly intact
Laboratory Results
-
05/29/25 15:52
05/29/25 15:52
Laboratory Results
APTT 27.1 Sec (23.4-35.0) 05/29/25 17:10
Total Bilirubin 1.0 mg/dl (0.2-1.3) 05/29/25 15:52
AST 23 U/L (14-36) 05/29/25 15:52
ALT 18 U/L (0-35) 05/29/25 15:52
Alkaline Phosphatase 72 U/L (38-126) 05/29/25 15:52
Troponin I < 0.012 ng/ml 05/29/25 15:52
Impression/Plan
-
IMPRESSION:
PLAN:
# New right lower extremity DVT off of anticoagulation
# Recent acute DVT/PE status post IVC filter on 05/12
# History of bilateral DVT on 04/25
-Heparin drip being started
# Worsening hypoxemia secondary to reoccurrence of right pleural effusion unclear etiology unclear if parapneumonic versus recurrence of hemothorax
-O2 requirement increased from 2 to 4 L while at rehab
-Chest x-ray appears to show large right pleural effusion
- CT PE chest pending to evaluate for fluid collection versus pneumonia and to evaluate for further pulmonary embolism
-IR consulted for thoracentesis/chest tube
- Pulmonary consulted
- Surgical oncology thinks that pleural effusion unlikely to be hemothorax unless patient becomes hemodynamically unstable or hemoglobin drops
- Monitor hemoglobin while on heparin drip
#History of right-sided hemothorax with mediastinal shift secondary to Eliquis after minimally invasive wedge resection on 04/15 for lung cancer status post chest tube on 05/11 since removed on 05/19
- has been off of Eliquis
Oral thrush
- Resolved
Non-small cell lung cancer status post minimally invasive wedge resection on 04/15
COPD
- Continue albuterol
- Continue prednisone
Chronic HFpEF
- Continue Coreg
- Continue Lasix
Chronic back pain
- Continue oxycodone, morphine
CKD 3B
- Creatinine up to 1.1
Type 2 diabetes
- Continue Lantus
- Insulin sliding scale
Acute blood loss anemia secondary to hemothorax
- Hemoglobin stable 11.3
2 cm low-density lesion of superior right lower lobe of the liver
Benign thyroid nodule
History of CVA
Buttock pressure injury
Hypercholesterolemia
- Continue fenofibrate, Zetia,, statin
Full code
DVT prophylaxis�heparin drip
Regular diet
[2025-05-29] MEDS: HEPARIN 7200 UNITS IV (18:06)
[2025-05-29] MEDS: HEPARIN 25000 UNITS/250 ML IV (18:18)
[2025-05-29 18:40] LABS: Absolute Neutrophils -Man Diff 13.4 10^3/uL (1.4-6.5); Anisocytosis 1+; Normal RBC Morphology No; Platelets Checked Yes; Total Cells Counted 100
[2025-05-30] VITALS (19 sets, daily range): BP systolic 105–139; BP diastolic 51–74
[2025-05-30] MEDS: DUONEB INH (00:16)
[2025-05-30 00:20] LABS: Glucose - Point of Care 126 mg/dl (70-99)
--- NOTE | 2025-05-30 00:30 | PTCARENOTE ---
Pt arrived to floor via stretcher from the ED. Pt AAOx3. HR in the 60's in NSR on the monitor. POX 95% on 4LO2 NC. FOOTE/ Orthopneic. Lungs dec at bases. Old right chest tube site open to air with steri strips in place. Right breast swollen. + bowel.
Round obese abd. Pure wick in place per pt request, pt unable to get OOB due to PE and RLE DVT. RLE +2 edema with purple discoloration, palpable pulses present. Pt report RLE pain 10/10 Pain medication administered as ordered. Stage 2 pressure ulcer
noted, Barrier ointment/ foam dressing applied. Right AC int capped. Right forearm int infusing Heparin gtt @1600units/ hr per MD order. Pt positioned in bed per comfort. Heels elevated on pillow. Call vidal in reach. Will continue to monitor.
[2025-05-30] MEDS: DILAUDID 0.5 MG IV (00:37)
[2025-05-30 01:14] LABS: Hematocrit 37.6 % (37.0-47.0); Hemoglobin 12.1 g/dL (12.0-16.0); Mean Corp Hgb Conc. 32.2 g/dL (33.0-37.0); Mean Corpuscular Volume 93.3 fL (81.0-99.0); Platelet Count 213 10^3/uL (130-400); Red Cell Dist. Width 16.7 % (11.5-14.5)
[2025-05-30 01:35] LABS: APTT > 200 Sec (23.4-35.0)
--- NOTE | 2025-05-30 04:30 | PTCARENOTE ---
Pt unable to void. Bladder scanned for 625 ml. Order obtained for Straight cath. Straight cath performed, 700ml liset urine drained. Pt reporting RLE pain, Order obtained for PRN pain medication, see MAR. Pt difficult stick for lab work. Emotional
support provided. Heparin gtt infusing as ordered. No other changes in assessment noted at this time. Will continue to monitor.
[2025-05-30] MEDS: DILAUDID 0.25 MG IV ×4 (04:44→22:06)
[2025-05-30 06:02] LABS: Hematocrit 31.4 % (37.0-47.0); Hemoglobin 10.2 g/dL (12.0-16.0); Mean Corp Hgb Conc. 32.5 g/dL (33.0-37.0); Mean Corpuscular Volume 91.0 fL (81.0-99.0); Platelet Count 178 10^3/uL (130-400); Red Cell Dist. Width 16.8 % (11.5-14.5)
[2025-05-30 06:43] LABS: ALT (SGPT) 16 U/L (0-35); AST (SGOT) 29 U/L (14-36); Albumin 3.6 g/dl (3.5-5.0); Alkaline Phosphatase 65 U/L (38-126); Blood Urea Nitrogen 35 mg/dl (7-17); Calcium 8.9 mg/dl (8.4-10.2); Carbon Dioxide 28 mmol/L (22-30); Chloride 98 mmol/L (98-107); Estimated Creatinine Clearance 54 ml/min; Glucose 112 mg/dl (70-99); Potassium 3.6 mmol/L (3.5-5.1); Sodium 131 mmol/L (135-145); Total Protein 6.8 g/dl (6.3-8.2); eGFR > 60.00
[2025-05-30 07:07] LABS: Nucleated Red Blood Cells % 0 %
--- NOTE | 2025-05-30 07:19 | CON.PUL ---
Consultation
Consultation Request
Date/Time Consultation Requested: 05/30/25
Date/Time Consultation Performed: 05/30/25
Performing Provider: Didi
Reason for Consultation: Pleural effusion
Medical History
-
History of Present Illness:
69-year-old female with previous history of COPD, lung cancer status post minimally invasive wedge resection, right sided hemothorax status post thoracotomy/decortication/evacuation by Dr. Banuelos, DVT/PE on Eliquis, chronic heart failure, chronic
kidney disease presenting to ER with increased pain and swelling of the right lower extremity. On last admission, her oral anticoagulation was held due to hemothorax, which has not been resumed. She underwent IVC filter placement. On arrival,
she was started on IV heparin. Chest x-ray demonstrating moderate right sided pleural effusion, increased from prior. She has no worsening shortness of breath than baseline. She does chronically use 2 L oxygen but was increased to 4 L at rehab.
She is satting 99%. Admitted to IMU.
Past Medical History
Past Medical History: Other (see list below)
Social History
Tobacco: Non-smoker
Alcohol: None
Drug: None
Allergies / Home Medications
Allergies
Allergy/AdvReac Type Severity Reaction Status Date / Time
aspirin AdvReac Nausea / Verified 05/29/25 13:27
Vomiting
erythromycin base AdvReac Nausea / Verified 05/29/25 13:27
Vomiting
NSAIDS (Non-Steroidal AdvReac Nausea / Verified 05/29/25 13:27
Anti-Inflamma Vomiting
Salicylates * AdvReac Nausea / Verified 05/29/25 13:27
Vomiting
Home Medications
�Medication �Instructions �Recorded �Confirmed �Last Taken �Type
albuterol sulfate 90 mcg/actuation 2 puff inhalation R Q4HPRN PRN sob 12/28/24 05/29/25 04/15/25 06:00 History
aerosol inhaler (Ventolin HFA)
carvedilol 6.25 mg tablet 6.25 mg PO Q12H Blood Pressure 07/01/25 11/30/25 11/12/25 History
ezetimibe 10 mg tablet 10 mg PO DAILY High Cholesterol 12/28/24 05/29/25 05/11/25 History
ergocalciferol (vitamin D2) 1,250 1,250 mcg PO RODRIGUEZ Supplement 04/08/25 05/29/25 05/07/25 History
mcg (50,000 unit) capsule (Vitamin
D2)
guaifenesin 600 mg tablet, 600 mg PO BID Congestion 04/08/25 05/29/25 05/11/25 History
extended release 12 hr (Mucinex)
fluticasone 250 mcg-salmeterol 50 1 inh inhalation R BID 04/15/25 05/29/25 05/11/25 History
mcg/dose blistr powdr for Lung/Breathing Issues
inhalation (Advair Diskus)
atorvastatin 80 mg tablet (Lipitor) 80 mg PO DAILY High Cholesterol 05/11/25 05/29/25 05/10/25 History
bisacodyl 10 mg rectal suppository 10 mg PA DAILYPRN PRN if no bm in 05/11/25 05/29/25 Unknown History
(Dulcolax (bisacodyl)) 4 days, give day 5
docusate sodium 100 mg capsule 100 mg PO BID Constipation 05/11/25 05/29/25 05/11/25 History
(Colace)
fenofibrate micronized 200 mg 200 mg PO DAILY High Cholesterol 05/11/25 05/29/25 05/11/25 History
capsule
furosemide 80 mg tablet 80 mg PO DAILY Fluid 05/11/25 05/29/25 05/11/25 History
Retention/Swelling
ipratropium 0.5 mg-albuterol 3 mg 3 ml inhalation R QID 05/11/25 05/29/25 05/11/25 History
(2.5 mg base)/3 mL nebulization Lung/Breathing Issues
soln
magnesium hydroxide 400 mg/5 mL 2,400 mg PO [id number] PRN 05/11/25 05/29/25 05/10/25 History
oral suspension (Milk of Magnesia) constipation
polyethylene glycol 3350 17 gram 17 g PO DAILY Constipation 05/11/25 05/29/25 05/10/25 History
oral powder packet
sodium phosphates 19 gram-7 118 ml PA DAILYPRN PRN if no bm in 05/11/25 05/29/25 Unknown History
gram/118 mL enema (Fleet Enema) 5 days, give on day 6
zinc oxide 20 % topical ointment 1 applic topical BID sacral wound 05/11/25 05/29/25 05/11/25 History
morphine 15 mg tablet,extended 15 mg PO Q12H severe Pain #6 tabs 05/23/25 05/29/25 05/11/25 Rx
release
nystatin 100,000 unit/mL oral 5 ml PO QID #60 mL 05/23/25 05/29/25 Unknown Rx
suspension
oxycodone 5 mg tablet 5 mg PO Q6HPRN PRN moderate-severe 05/23/25 05/29/25 Unknown Rx
pain #12 tabs
acetaminophen 325 mg tablet 650 mg PO Q4H PRN mild pain/fever 05/29/25 05/29/25 Unknown History
insulin aspart U-100 100 unit/mL See Rx Instructions .Route 05/29/25 05/29/25 Unknown History
(3 mL) subcutaneous pen .COMPLEX Diabetes
insulin glargine 100 unit/mL (3 10 unit SC DAILY Diabetes 05/29/25 05/29/25 Unknown History
mL) subcutaneous pen (Lantus
Solostar U-100 Insulin)
lidocaine 4 % topical patch 1 patch topical DAILY lower back 05/29/25 05/29/25 Unknown History
pain
ondansetron HCl 4 mg tablet 4 mg PO Q6H PRN n/v 05/29/25 05/29/25 Unknown History
prednisone 10 mg tablet 10 mg PO DAILY 05/29/25 05/29/25 Unknown History
prednisone 10 mg tablet 20 mg PO DAILY 05/29/25 05/29/25 Unknown History
Review of Systems
-
History Source: Patient
All other systems: Negative unless noted
Vitals / Labs / Diagnostic Testing
Vital Signs
Temp Pulse Resp BP Pulse Ox
98.4 F 62 16 110/67 98
05/29/25 13:27 05/30/25 06:30 05/30/25 06:30 05/30/25 06:00 05/30/25 06:30
Lab Data
05/30/25 05:26
05/30/25 05:26
Laboratory Results
05/29/25 05/30/25
17:10 00:22
APTT 27.1 > 200 H*
Diagnostic Testing:
Physical Exam
-
HEENT: Normocephalic, Anicteric and Moist Mucous Membranes
Cardiovascular: S1/S2, Regular Rhythm and Peripheral Edema (R)
Respiratory: Clear (decreased at bases) and Non-Labored Respirations
GI: Soft and Non Distended
Neurology: Awake, Alert, Oriented and No Motor Deficits
Skin: Warm, Dry and Good Color
General: Comfortable and Other (NAD)
Assessment
-
69-year-old female with previous history of COPD, lung cancer status post minimally invasive wedge resection, right sided hemothorax status post thoracotomy/decortication/evacuation by Dr. Banuelos, DVT/PE on Eliquis, chronic heart failure, chronic
kidney disease presenting to ER with increased pain and swelling of the right lower extremity. On last admission, her oral anticoagulation was held due to hemothorax, which has not been resumed. She underwent IVC filter placement. On arrival,
she was started on IV heparin. Chest x-ray demonstrating moderate right sided pleural effusion, increased from prior. She has no worsening shortness of breath than baseline. She does chronically use 2 L oxygen but was increased to 4 L at rehab.
She is satting 99%.
DVT
Subacute recent PE/diagnosed 04/2025 s/p IVC filter
Recurrent R pleural effusion, s/p recent R thoracotomy, decort and evac 05/15/25, chest tube removed 05/19/25
Conditions present [employer] [employer]
Adm DH (d/c 05/23/25)-Right hemothorax with mediastinal shift, hypoxemic respiratory failure status post mechanical ventilation-intubated 05/14 for thoracotomy (extubated 05/16/2025)
Bilateral pulm emboli with right ventricular strain status post IVC filter placement 05/12/2025, Eliquis discontinued due to hemothorax
R Hemothorax/Fibrothorax s/p right thoracoscopy with minithoracotomy, decortication and evacuation of hematoma by Dr. Banuelos, chest tube removed 05/19/2025
History of non-small cell lung cancer
KRAS positive, PD-L1 expression 1%. Biopsy RIGHT lung at [facility]-11/2024; S/p minimally invasive right lower lobe wedge resection by Dr. Baunelos on 04/15/2025
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
Chronic pain
COPD exacerbation 05/21.
Thrush, 05/22
Essential hypertension
Kidney stones/Proteinuria
Type 2 diabetes mellitus
Mild intermittent asthma
Multinodular goiter
Hypercholesterolemia
Obesity
Anxiety/Insomnia/Restless leg syndrome
Brain aneurysm , Clipped
Back surgery
Parathyroidectomy
[facility]-UTI, Septic shock, syncope likely vasovagal 12/22/24-12/26/24
DH-pseudomonas UTI, JOHNNY, 12/28-01/01/2025
Plan
Currently saturating 99% on 4L, baseline use of 2L
Wean to home dose
Prior history of lung disease is noted including extensive recent surgical history and lung cancer
PE/DVT not on Eliquis due to hemothorax, s/p IVCF
Started on IV heparin but not sure if this will induce worsening bleed, given recent surgical intervention
Recurrent R pleural effusion, CXR/CT obtained indicating moderate re-accumulation
IR consulted for possible thora vs chest tube, not sure if lytics can be applied if this is bloody effusion
Would prefer likely just tap for diagnostic evaluation and next steps
She feels her shortness of breath is no different than prior
Other imaging reviewed--on prior admission extensively
Prior ECHO results are reviewed indicating stable function
Unlikely related to heart failure
Weight loss measures recommended
Obesity likely contributing to respiratory symptoms
At risk for sleep apnea, may consider outpatient sleep study if indicated
Will discuss care plan with team
We will follow
Diagnostic Data
Chest X-Ray:
CT Scan: CHEST 05/29/25- Examination is positive for pulmonary embolism. On the right, most proximal involvement of the distal right main pulmonary artery. On the left, most proximal involvement of the left lower lobe pulmonary artery at and just
inferior to the origin of the superior segmental branch. No evidence for significant right heart strain. Air is present within the anterior aspect of the main pulmonary artery, introduced during intravenous injection. No evidence for air within the
right ventricle. Moderate right pleural collection with heterogeneous density, probably from previous large pneumothorax. Atelectasis involving most of the right lower lobe. Band of atelectasis within the right middle lobe. Scattered areas of
predominantly interstitial parenchymal opacity within both upper lobes and the left lower lobe, also present on presurgical CT scan. Appearance compatible with interstitial fibrosis with a component of honeycombing. No evidence for significant left
pleural effusion.
Echo: 05/11/25- 1. Normal left ventricular size and function.
2. Ejection fraction is 55-60% by visual assessment.
3. Upper normal right ventricle size and normal function. Mild right ventricular hypertrophy.
4. Aortic sclerosis without stenosis.
5. Mild tricuspid regurgitation. Estimated pulmonary artery pressure of 29 mmHg assuming a right atrial pressure of 8 mmHg.
6. Thickened pericardium with trivial effusion.
7. Compared to a prior transthoracic echocardiogram study from 04/25/25 The PA pressure has decreased from 52 to to 29 mmHg.
PFT's: 02/22/25- FVC was 2.39L / 91% predicted. FEV1 was 1.80L / 87% predicted. Ratio 75. TLC was 3.49L / 75% predicted. Diffusion capacity was 65% predicted (mild restriction, mild diffusion impairment)
Reports and relevant images were personally reviewed.
Total time spent on this consultation __75__ minutes which includes review of history, physical exam, medications, laboratory data, personal review of imaging, extensive review of outpatient records, discussion with care team and respiratory therapy.
[2025-05-30 08:05] LABS: Glucose - Point of Care 135 mg/dl (70-99)
[2025-05-30] MEDS: DUONEB 3 ML INH ×4 (08:19→19:28)
[2025-05-30] MEDS: ADVAIR HFA 115/21 MCG INHALER 2 PUFF INH ×2 (08:19→19:28)
[2025-05-30 08:27] LABS: Glycohemoglobin (HgbA1c) 5.7 % (4.0-5.9)
[2025-05-30] MEDS: NOVOLOG FLEXPEN-LOW RESISTANCE SC (08:30)
--- NOTE | 2025-05-30 08:30 | PTCARENOTE ---
Assumed care of pt at 0715 following shift report. Pt woken to name for assessment and care. Pt denies c/o pain at present- asking when scheduled to receive next dose of MS Contin. Pt received on O2 at 4l/min Resp Therapy tapered O2 to 3l/min via
NC w/ Pox 94%. Physical assessment completed as documented. Hygiene and comfort care provided.
[2025-05-30] MEDS: DELTASONE 10 MG PO (09:10)
[2025-05-30] MEDS: LIPITOR 80 MG PO (09:10)
[2025-05-30] MEDS: ZETIA 10 MG PO (09:10)
[2025-05-30] MEDS: MUCINEX 600 MG PO ×3 (09:10→19:48)
[2025-05-30] MEDS: COLACE 100 MG PO ×3 (09:10→19:47)
[2025-05-30] MEDS: TRICOR 145 MG PO (09:11)
[2025-05-30] MEDS: LANTUS 0.1 UNITS SC (09:16)
[2025-05-30] MEDS: LASIX 80 MG PO (09:16)
[2025-05-30] MEDS: MIRALAX PO (09:17)
--- NOTE | 2025-05-30 09:18 | VNURNOTE ---
Chart reviewed. Patient is current with [facility]. Will continue to follow hospital course and DC plans.
[2025-05-30 10:40] LABS: APTT 69.5 Sec (23.4-35.0)
[2025-05-30] MEDS: HEPARIN 3600 UNITS IV (11:17)
[2025-05-30] MEDS: MS CONTIN (EXTENDED RELEASE) 15 MG PO ×3 (11:47→19:48)
[2025-05-30] MEDS: COREG 6.25 MG PO ×3 (11:47→19:47)
[2025-05-30 12:58] LABS: Glucose - Point of Care 181 mg/dl (70-99)
--- NOTE | 2025-05-30 13:18 | CM ---
Patient recently at from 05/11/25 to 05/23/25 when she was discharged to [facility] for STR. Readmitted to on 05/29/25. Patient lives with her in a 2 story plus basement home with B/B on 2nd, 1/2 bath on , 2 steps to enter. 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
patient was independent with ambulation with a RW. Also has a hurry cane. No in-home services. No HC-POA. No VA benefits. No psychiatric hospitalizations. PCP is Dr. Irving Pagan. Pharmacy is [facility] on [address] in [place]. Discharge POC:
Anticipate resumption of STR. Await therapy eval.
[2025-05-30] MEDS: NOVOLOG FLEXPEN-LOW RESISTANCE 1 UNITS SC (13:24)
--- NOTE | 2025-05-30 13:25 | W.PN.HOSP.TC ---
Today's Communication/Plan
-
Monitor vital signs see plan
Discussed with Dr. Banuelos, will continue IV heparin
Hematology evaluation
Vascular evaluation
IR for thoracentesis
Wean oxygen as tolerated
Assessment / Plan
Assessment / Plan
General: Comfortable
HEENT: Normocephalic, Anicteric, Moist Mucous Membranes
Cardiovascular: Regular Rhythm
Respiratory: Wheeze (slight L sided), Crackles (Basilar), Non-Labored Respirations
GI: Soft, Non Distended and Non Tender
Neurology: Awake, Alert and No Motor Deficits
Psych: calm
New right lower extremity DVT off of anticoagulation
# Recent acute DVT/PE status post IVC filter on 05/12
# History of bilateral DVT on 04/25 however venous Doppler on 05/12 was negative for DVT
Continue with heparin drip
Anticoagulation decision per oncology,Dr Riky Banuelos consulted. Discussed with Dr. Grayson, requested hematology evaluation regarding anticoagulation. Also consulted vascular to see if need any surgical intervention given extent of DVT.
# Worsening hypoxemia secondary to reoccurrence of right pleural effusion unclear etiology unclear if parapneumonic versus recurrence of hemothorax
-O2 requirement increased from 2 to 4 L while at rehab
-Chest x-ray appears to show large right pleural effusion
CT with subacute PE
-IR consulted for thoracentesis, discussed with pulmonary and per them started with thoracentesis and if bloody then will get chest tube. Thoracentesis study ordered
- Pulmonary consulted
- Surgical oncology thinks that pleural effusion unlikely to be hemothorax unless patient becomes hemodynamically unstable or hemoglobin drops
- Monitor hemoglobin while on heparin drip
#History of right-sided hemothorax with mediastinal shift secondary to Eliquis after minimally invasive wedge resection on 04/15 for lung cancer status post chest tube on 05/11 since removed on 05/19
- has been off of Eliquis
Oral thrush
- Resolved
Non-small cell lung cancer status post minimally invasive wedge resection on 04/15
History of non-small cell lung cancer
KRAS positive, PD-L1 expression 1%. Biopsy RIGHT lung at [facility]-11/2024; S/p minimally invasive right lower lobe wedge resection by Dr. Banuelos on 04/15/2025
COPD
- Continue albuterol
- Continue prednisone
Chronic HFpEF
- Continue Coreg
- Continue Lasix
Hyponatremia
Monitor
Chronic back pain
- Continue oxycodone, morphine
CKD 3B
- Monitor renal function
Type 2 diabetes
- Continue Lantus
- Insulin sliding scale
Acute on chronic anemia
On last admission had acute blood loss anemia secondary to hemothorax, monitor
- Monitor hemoglobin
2 cm low-density lesion of superior right lower lobe of the liver
Benign thyroid nodule
History of CVA
Buttock pressure injury
Hypercholesterolemia
- Continue fenofibrate, Zetia,, statin
Full code
DVT prophylaxis�heparin drip
I spent a total of 52 minutes with the patient or on the floor. More than 50% of this time involved counseling and coordination of care.
Anticipated Discharge: > 48 hours
Subjective/Interval History
-
Date of Service: May 30, 2025
Does have shortness of breath at times
Objective Data
-
Labs:
Laboratory Results
05/30/25 05/30/25 05/30/25
00:22 05:26 09:28
WBC 17.0 H
Hgb 10.2 L
Hct 31.4 L
Plt Count 178
APTT > 200 H* Cancelled
Sodium 131 L
Potassium 3.6
Chloride 98
Carbon Dioxide 28
BUN 35 H
Creatinine 1.0
Glucose 112 H
Calcium 8.9
Total Bilirubin 1.1
AST 29
ALT 16
Alkaline Phosphatase 65
05/30/25 05/30/25
10:16 17:00
WBC
Hgb
Hct
Plt Count
APTT 69.5 H Pending
Sodium
Potassium
Chloride
Carbon Dioxide
BUN
Creatinine
Glucose
Calcium
Total Bilirubin
AST
ALT
Alkaline Phosphatase
Vital Signs:
Vital Signs
Temp Pulse Resp BP Pulse Ox
98.3 F 62 21 109/60 93
05/30/25 12:00 05/30/25 12:00 05/30/25 12:00 05/30/25 12:00 05/30/25 12:00
I&O
05/29/25 05/30/25 05/31/25
06:59 06:59 06:59
Intake Total 532 / 544 288 / 288
Balance 532 / 544 288 / 288
--- NOTE | 2025-05-30 14:14 | PTCARENOTE ---
Pt has not voided since straight cath early this am. Bladder scan 125ml. Pt received PO lasix this am. TT sent to Dr Langford to notify.
[2025-05-30] MEDS: HEPARIN 25000 UNITS/250 ML IV (14:44)
--- NOTE | 2025-05-30 15:11 | PTCARENOTE ---
Patient arrived to IMU from ICU. AOx3. On 3L with SpO2 greater than 92%. NSR on monitor. BP stable. R lower extremity has +2 edema. 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 Heparin gtt running at 14/hr. Call vidal within reach, bed in lowest
position, and bed of wheels locked.
[2025-05-30 15:16] LABS: LDH 830 U/L (120-246)
--- NOTE | 2025-05-30 15:32 | CON.VAS ---
Addendum entered and electronically signed by Romie Spicer III, MD 05/31/25 14:43:
This patient was seen and examined in collaboration with ZOHRA Cisneros and ZOHRA Mckeon. I agree with the history and physical exam as well as the assessment and plan. I have the following additions:
History reviewed in detail
Venous duplex images/report personally reviewed
CT angiogram images reviewed along with the report
Patient is resting comfortably in bed
Nontoxic-appearing
Oxygen via nasal cannula
Right leg is Channing wrapped and elevated
Right thigh and calf are both soft and nontender throughout
She has extensive right lower extremity DVT from the popliteal vein through the common femoral vein. Cross-sectional imaging reveals thrombus extension through the iliac veins and into the IVC up to the level of the filter (placed on 05/12 by IR).
Subjectively she reports 80% improvement in pain since anticoagulation has started as well as with leg elevation and external compression. I had a long conversation with her today and explained the imaging findings. Options were discussed with
her:
1.) Continue heparin gtt with therapeutic PTT goal along with leg elevation and compression. Close observation. No additional surgical intervention. The risks and benefits of this approach were discussed with her in detail. The downside of
leaving an extensive DVT with IVC and iliac vein involvement was explained to her in terms of long-term swelling and post phlebitic syndrome which could negatively impact her. The advantage of avoiding additional surgical procedures and the
associated complications was explained to her especially in the context of her current postoperative experience thus far.
2.) Proceed with endovascular intervention by way of mechanical lysis. The technical aspects of this procedure were discussed with her in detail. The benefits and rationale for this approach were discussed with her in detail. Operative risks
were discussed with her in detail including but not limited to bleeding, access site vascular injury, vessel injury, contrast nephropathy, pulmonary embolism, continued DVT and need for additional procedures.
At this point understandably she is very upset by her postoperative course in general. She is contemplating requesting a transfer to [facility]. She is not sure how she would like to proceed yet with either staying at [place] or having an additional
procedure to address the DVT and iliocaval thrombus. She would like to discuss everything with her and will let her primary team know how she would like to proceed. For now continue heparin drip with therapeutic PTT goal. Leg elevation.
Gentle Channing wrap compression of the right leg from the toes to the thigh at all times. Call with questions or concerns
Signed:
Romie Spicer III, MD
Vascular Surgery
[facility]
Original Note:
Consultation
Consultation Request
Date/Time Consultation Performed: 05/30/25 3:30pm
Performing Provider: Nayan
Reason for Consultation: DVT
Medical History
-
Chief Complaint: RLE swelling
History of Present Illness:
69 yo female with past medical history significant for COPD, right-sided hemothorax, lung cancer status post minimally invasive wedge resection on 04/15 complicated by hemothorax, DVT/pulm embolism on Eliquis, chronic HFpEF, CKD 3B, diabetes,
diabetic nephropathy, chronic back pain, history of CVA, buttock pressure injury, 2 cm low-density lesion of superior right lower lobe of liver, presented to the ER on 05/29/25 with increased pain/swelling of the RLE for the prior 4 days. Additional
complaints of SOB. Pt had been discharged on 05/23/25 on 2L nasal canula and had needed that increased to 4L while at her rehab. Pt underwent minimally invasive wedge resection for stage Ia right lower lobe lung cancer on 04/15 which was complicated
by DVT/PE.
During that admission she underwent IVC filter placement and hematoma evacuation by Dr Banuelos 05/14/25. Eliquis was held following that surgery and discharge.
Vascular consult for RLE DVT, increased pain/swelling to the RLE.
Past Medical History
Past Medical History: Other (COPD, right-sided hemothorax, lung cancer status post minimally invasive wedge resection on 04/15 complicated by hemothorax, DVT/pulm embolism on Eliquis, chronic HFpEF, CKD 3B, diabetes, diabetic nephropathy, chronic
back pain, history of CVA, buttock pressure injury, 2 cm low-density lesion of sup)
Past Surgical History: Other (wedge resection on 04/15 )
Social History
Tobacco: Non-Smoker
Alcohol: None
Drug: None
Family History
Family History: Reviewed & Not Pertinent
Allergies / Home Medications
Allergy/AdvReac Type Severity Reaction Status Date / Time
aspirin AdvReac Nausea / Verified 05/29/25 13:27
Vomiting
erythromycin base AdvReac Nausea / Verified 05/29/25 13:27
Vomiting
NSAIDS (Non-Steroidal AdvReac Nausea / Verified 05/29/25 13:27
Anti-Inflamma Vomiting
Salicylates * AdvReac Nausea / Verified 05/29/25 13:27
Vomiting
�Medication �Instructions �Recorded �Confirmed �Type
albuterol sulfate 90 mcg/actuation 2 puff inhalation R Q4HPRN PRN sob 12/28/24 05/29/25 History
aerosol inhaler (Ventolin HFA)
carvedilol 6.25 mg tablet 6.25 mg PO Q12H Blood Pressure 12/28/24 05/29/25 History
ezetimibe 10 mg tablet 10 mg PO DAILY High Cholesterol 12/28/24 05/29/25 History
ergocalciferol (vitamin D2) 1,250 1,250 mcg PO RODRIGUEZ Supplement 04/08/25 05/29/25 History
mcg (50,000 unit) capsule (Vitamin
D2)
guaifenesin 600 mg tablet, 600 mg PO BID Congestion 04/08/25 05/29/25 History
extended release 12 hr (Mucinex)
fluticasone 250 mcg-salmeterol 50 1 inh inhalation R BID 04/15/25 05/29/25 History
mcg/dose blistr powdr for Lung/Breathing Issues
inhalation (Advair Diskus)
atorvastatin 80 mg tablet (Lipitor) 80 mg PO DAILY High Cholesterol 05/11/25 05/29/25 History
bisacodyl 10 mg rectal suppository 10 mg VT DAILYPRN PRN if no bm in 05/11/25 05/29/25 History
(Dulcolax (bisacodyl)) 4 days, give day 5
docusate sodium 100 mg capsule 100 mg PO BID Constipation 05/11/25 05/29/25 History
(Colace)
fenofibrate micronized 200 mg 200 mg PO DAILY High Cholesterol 05/11/25 05/29/25 History
capsule
furosemide 80 mg tablet 80 mg PO DAILY Fluid 05/11/25 05/29/25 History
Retention/Swelling
ipratropium 0.5 mg-albuterol 3 mg 3 ml inhalation R QID 05/11/25 05/29/25 History
(2.5 mg base)/3 mL nebulization Lung/Breathing Issues
soln
magnesium hydroxide 400 mg/5 mL 2,400 mg PO [id number] PRN 05/11/25 05/29/25 History
oral suspension (Milk of Magnesia) constipation
polyethylene glycol 3350 17 gram 17 g PO DAILY Constipation 05/11/25 05/29/25 History
oral powder packet
sodium phosphates 19 gram-7 118 ml VT DAILYPRN PRN if no bm in 05/11/25 05/29/25 History
gram/118 mL enema (Fleet Enema) 5 days, give on day 6
zinc oxide 20 % topical ointment 1 applic topical BID sacral wound 05/11/25 05/29/25 History
morphine 15 mg tablet,extended 15 mg PO Q12H severe Pain #6 tabs 05/23/25 05/29/25 Rx
release
nystatin 100,000 unit/mL oral 5 ml PO QID #60 mL 05/23/25 05/29/25 Rx
suspension
oxycodone 5 mg tablet 5 mg PO Q6HPRN PRN moderate-severe 05/23/25 05/29/25 Rx
pain #12 tabs
acetaminophen 325 mg tablet 650 mg PO Q4H PRN mild pain/fever 05/29/25 05/29/25 History
insulin aspart U-100 100 unit/mL See Rx Instructions .Route 05/29/25 05/29/25 History
(3 mL) subcutaneous pen .COMPLEX Diabetes
insulin glargine 100 unit/mL (3 10 unit SC DAILY Diabetes 05/29/25 05/29/25 History
mL) subcutaneous pen (Lantus
Solostar U-100 Insulin)
lidocaine 4 % topical patch 1 patch topical DAILY lower back 05/29/25 05/29/25 History
pain
ondansetron HCl 4 mg tablet 4 mg PO Q6H PRN n/v 05/29/25 05/29/25 History
prednisone 10 mg tablet 10 mg PO DAILY Anti-Inflammatory 05/29/25 05/29/25 History
prednisone 10 mg tablet 20 mg PO DAILY Anti-Inflammatory 05/29/25 05/29/25 History
Review of Systems
-
History Source: Patient
All other systems: Negative unless noted
Constitutional: Reports No Symptoms
EENT: Reports No Symptoms
Respiratory: Reports Trouble Breathing
Cardiac: Reports Chest Pain (resolved)
Vascular: Denies Leg Pain / Claudication
Abdomen/GI: Reports No Symptoms
: Reports No Symptoms
Musculoskeletal: Reports Edema
Skin: Reports No Symptoms
Neurological: Reports No Symptoms
Physical Exam
Vital Signs
Temp Pulse Resp BP Pulse Ox
98.1 F 72 17 105/51 93
05/30/25 15:04 05/30/25 15:16 05/30/25 15:16 05/30/25 14:00 05/30/25 15:16
Lab Results
05/30/25 05:26
05/30/25 05:26
Troponin I < 0.012 ng/ml 05/29/25 15:52
Bwu-K-Rhpythizgre Pept 341 pg/ml 05/29/25 15:52
Physical Exam
General: No Apparent Distress
HEENT: Normocephalic and Atraumatic
Respiratory: Other (FOOTE)
Cardiac: Negative JVD
GI: Soft and Non Tender
Musculoskeletal: No Clubbing, No Cyanosis and Edema (RLE)
Skin: Warm
Neuro: Awake, Alert and Oriented
Psych: Calm
Pulses: Right Dorsalis Pedis: +1 and Right Posterior Tibial: +1
Assessment / Plan
-
69 yo female with complex PMH here with RLE DVT
IVC filter placed last admission
Not on anticoagulation before admission
Heparin gtt infusing now
Plan:
Cont heparin gtt
Venogram tomorrow if creatinine stable
CHANNING wrap compression RLE/elevate when in bed
Data Reviewed
-
Ultrasound: Discussed with Patient
[2025-05-30 16:39] LABS: Glucose - Point of Care 222 mg/dl (70-99)
[2025-05-30] MEDS: NOVOLOG FLEXPEN-LOW RESISTANCE 2 UNITS SC (17:29)
[2025-05-30 17:36] LABS: APTT 126.2 Sec (23.4-35.0)
[2025-05-30 22:03] LABS: Glucose - Point of Care 215 mg/dl (70-99)
[2025-05-31] VITALS (16 sets, daily range): BP systolic 64–144; BP diastolic 54–82; BMI 35.9
[2025-05-31 00:10] LABS: APTT 94.8 Sec (23.4-35.0)
--- NOTE | 2025-05-31 00:12 | PTCARENOTE ---
assumed care of patient. pt is AAOx3, able to make needs known. VSS. on 3LNC 95%. PW intact, pt able to urinate clear yellow urine. complaints of pain to whole right side of body. medicated per MAR with positive effect. heparin gtt infusing. care
ongoing.
[2025-05-31] MEDS: DILAUDID 0.25 MG IV ×4 (04:44→22:02)
[2025-05-31 06:34] LABS: APTT 76.8 Sec (23.4-35.0)
[2025-05-31 06:37] LABS: Hematocrit 30.5 % (37.0-47.0); Hemoglobin 9.8 g/dL (12.0-16.0); Mean Corp Hgb Conc. 32.1 g/dL (33.0-37.0); Mean Corpuscular Volume 93.3 fL (81.0-99.0); Platelet Count 175 10^3/uL (130-400); Red Cell Dist. Width 16.7 % (11.5-14.5)
[2025-05-31 07:03] LABS: Nucleated Red Blood Cells % 0.2 %
[2025-05-31 07:14] LABS: Blood Urea Nitrogen 37 mg/dl (7-17); Calcium 9.0 mg/dl (8.4-10.2); Carbon Dioxide 32 mmol/L (22-30); Chloride 97 mmol/L (98-107); Estimated Creatinine Clearance 49 ml/min; Glucose 115 mg/dl (70-99); Potassium 3.6 mmol/L (3.5-5.1); eGFR 54.06
[2025-05-31] MEDS: DUONEB 3 ML INH ×4 (07:30→19:33)
[2025-05-31] MEDS: ADVAIR HFA 115/21 MCG INHALER 2 PUFF INH ×2 (07:30→19:33)
[2025-05-31] MEDS: NOVOLOG FLEXPEN-LOW RESISTANCE SC (07:35)
[2025-05-31 07:40] LABS: Sodium 132 mmol/L (135-145)
[2025-05-31 07:45] LABS: Glucose - Point of Care 126 mg/dl (70-99)
[2025-05-31] MEDS: MS CONTIN (EXTENDED RELEASE) 15 MG PO ×2 (07:48→20:17)
[2025-05-31] MEDS: COREG 6.25 MG PO ×2 (07:49→20:17)
[2025-05-31] MEDS: DELTASONE 10 MG PO (07:49)
[2025-05-31] MEDS: HEPARIN 25000 UNITS/250 ML IV ×2 (08:28→12:25)
--- NOTE | 2025-05-31 10:14 | CON.ONC ---
Consultation
-
Date Consultation Requested: 05/30/25
Date Consultation Performed: 05/31/25
Requesting Provider: Dr Myron Langford
Performing Provider: Dr Danielle Javed
Reason for Consultation: DVT
Impression
Impression
03/2025 lung cancer resection, complicated by post-op DVT/PE
Hemothorax from DOAC, requiring IVC filter and surgical evacuation/decortication
05/29/25 - progressive leg swelling, clinical DVT progression
Plan
Plan
Continue heparin
Monitor CBC and clinically for signs/symptoms of bleeding
Continue NEEMA wrap, leg elevation
Await venogram and input from vascular surgery re: candidacy for intervention
Patient History
History of Present Illness
This is a 69yo F who presented with progressive right leg pain.
Recent history is noted for Minimally invasive Wedge Resection of the Right Lower Lobe Lung Cancer on 04/15/25.
Post op course was complicated by mary ellen LE DVT on 04/25/25, started on anticoagulation. She was d/c'd on Eliquis on 05/07/25.
She returned with dyspnea on 05/11/25. CT chest was compared to 05/04/25 imaging and showed significant interval increase in hemorrhage into the posterior aspect of the right lung. Significant interval increase in right pleural effusion, with
loculated components anteriorly and in the subpulmonic region. Resultant mass effect with depression of the right hemidiaphragm. There is also mediastinal shift toward the left. Examination is positive for bilateral pulmonary embolism. CT findings
equivocal for increased right heart strain.
She underwent chest tube placement and IVC filter placement on 05/11/25, and ultimately mini-thoracotomy, and decortication and evacuation of hematoma on 05/15/25.
She was d/c'd on 05/23/25 off anticoagulation.
05/29/25 Doppler US of the right leg shows extensive contiguous occlusive thrombus from the right common femoral vein through the right popliteal vein and also involving the posterior tibial vein.
05/29/25 CT chest was positive for pulmonary embolism. On the right, most proximal involvement of the distal right main pulmonary artery. On the left, most proximal involvement of the left lower lobe pulmonary artery at and just inferior to the
origin of the superior segmental branch.
Vascular surgery was consulted yesterday. Heparin was initiated and venogram ordered (done this am, report pending).
Thoracentesis was considered, but not sufficient fluid noted to drain.
She complains of ongoing RLE pain. No bleeding on heparin.
Past-Medical/Surgical History
Past Medical History
Past Medical History: As per the HPI, also COPD, right-sided hemothorax, lung cancer status post minimally invasive wedge resection on 04/15 complicated by hemothorax, DVT/pulm embolism on Eliquis, chronic HFpEF, CKD 3B, diabetes, diabetic
nephropathy, chronic back pain, history of CVA, buttock pressure injury, 2 cm low-density lesion of sup)
Past Surgical History: Reports Other (lung cancer status post minimally invasive wedge resection on 04/15 )
Social History
Tobacco: Non-smoker
Alcohol: None
Drug: None
Family History
Family History: Not pertinent
Patient Medication
�Medication �Instructions �Recorded �Confirmed �Last Taken �Type
albuterol sulfate 90 mcg/actuation 2 puff inhalation R Q4HPRN PRN sob 12/28/24 05/29/25 04/15/25 06:00 History
aerosol inhaler (Ventolin HFA)
carvedilol 6.25 mg tablet 6.25 mg PO Q12H Blood Pressure 12/28/24 05/29/25 05/11/25 History
ezetimibe 10 mg tablet 10 mg PO DAILY High Cholesterol 12/28/24 05/29/25 05/11/25 History
ergocalciferol (vitamin D2) 1,250 1,250 mcg PO RODRIGUEZ Supplement 04/08/25 05/29/25 05/07/25 History
mcg (50,000 unit) capsule (Vitamin
D2)
guaifenesin 600 mg tablet, 600 mg PO BID Congestion 04/08/25 05/29/25 05/11/25 History
extended release 12 hr (Mucinex)
fluticasone 250 mcg-salmeterol 50 1 inh inhalation R BID 04/15/25 05/29/25 05/11/25 History
mcg/dose blistr powdr for Lung/Breathing Issues
inhalation (Advair Diskus)
atorvastatin 80 mg tablet (Lipitor) 80 mg PO DAILY High Cholesterol 05/11/25 05/29/25 05/10/25 History
bisacodyl 10 mg rectal suppository 10 mg IA DAILYPRN PRN if no bm in 05/11/25 05/29/25 Unknown History
(Dulcolax (bisacodyl)) 4 days, give day 5
docusate sodium 100 mg capsule 100 mg PO BID Constipation 05/11/25 05/29/25 05/11/25 History
(Colace)
fenofibrate micronized 200 mg 200 mg PO DAILY High Cholesterol 05/11/25 05/29/25 05/11/25 History
capsule
furosemide 80 mg tablet 80 mg PO DAILY Fluid 05/11/25 05/29/25 05/11/25 History
Retention/Swelling
ipratropium 0.5 mg-albuterol 3 mg 3 ml inhalation R QID 05/11/25 05/29/25 05/11/25 History
(2.5 mg base)/3 mL nebulization Lung/Breathing Issues
soln
magnesium hydroxide 400 mg/5 mL 2,400 mg PO [id number] PRN 05/11/25 05/29/25 05/10/25 History
oral suspension (Milk of Magnesia) constipation
polyethylene glycol 3350 17 gram 17 g PO DAILY Constipation 05/11/25 05/29/25 05/10/25 History
oral powder packet
sodium phosphates 19 gram-7 118 ml IA DAILYPRN PRN if no bm in 05/11/25 05/29/25 Unknown History
gram/118 mL enema (Fleet Enema) 5 days, give on day 6
zinc oxide 20 % topical ointment 1 applic topical BID sacral wound 05/11/25 05/29/25 05/11/25 History
morphine 15 mg tablet,extended 15 mg PO Q12H severe Pain #6 tabs 05/23/25 05/29/25 05/11/25 Rx
release
oxycodone 5 mg tablet 5 mg PO Q6HPRN PRN moderate-severe 05/23/25 05/29/25 Unknown Rx
pain #12 tabs
acetaminophen 325 mg tablet 650 mg PO Q4H PRN mild pain/fever 05/29/25 05/29/25 Unknown History
insulin aspart U-100 100 unit/mL See Rx Instructions .Route 05/29/25 05/29/25 Unknown History
(3 mL) subcutaneous pen .COMPLEX Diabetes
insulin glargine 100 unit/mL (3 10 unit SC DAILY Diabetes 05/29/25 05/29/25 Unknown History
mL) subcutaneous pen (Lantus
Solostar U-100 Insulin)
lidocaine 4 % topical patch 1 patch topical DAILY lower back 05/29/25 05/29/25 Unknown History
pain
ondansetron HCl 4 mg tablet 4 mg PO Q6H PRN n/v 05/29/25 05/29/25 Unknown History
prednisone 10 mg tablet 10 mg PO DAILY Anti-Inflammatory 05/29/25 05/29/25 Unknown History
prednisone 10 mg tablet 20 mg PO DAILY Anti-Inflammatory 05/29/25 05/29/25 Unknown History
nystatin 100,000 unit/mL oral 5 ml PO QID Thrush 05/31/25 05/29/25 Unknown History
suspension
Active Medications
Generic Name Dose Route Start Last Admin
Trade Name Freq PRN Reason Stop Dose Admin
Acetaminophen 650 mg 05/29/25 22:32
Acetaminophen 325 Mg Tablet PO 06/26/25 22:31
Q4H PRN
mild pain/fever
Albuterol 2 puff 05/29/25 22:32
Albuterol Hfa [90 Mcg/Dose] Inhaler INH
R Q4HPRN PRN
sob
Protocol
Albuterol/Ipratropium 3 ml 05/29/25 22:32 05/31/25 07:30
Ipratropium 0.5/Albuterol 3 Mg (3 Ml Ampul) INH 3 ml
R QID SARAH Administration
Protocol
Atorvastatin Calcium 80 mg 05/30/25 08:00 05/30/25 09:10
Atorvastatin (Lipitor) 80 Mg Tablet PO 06/27/25 07:59 80 mg
DAILY SARAH Administration
Bisacodyl 10 mg 05/29/25 22:32
Bisacodyl 10 Mg Rectal Suppository RECTAL 06/26/25 22:31
DAILYPRN PRN
if no bm in 4 days, give day 5
Carvedilol 6.25 mg 05/30/25 20:00 05/31/25 07:49
Carvedilol 6.25 Mg Tablet PO 06/27/25 19:59 6.25 mg
Q12 SARAH Administration
Dextrose 12.5 grams 05/29/25 22:32
Dextrose 50% (0.5 Grams/Ml) 50 Ml Syringe IV 06/26/25 22:31
[id number] PRN
hypoglycemia
Protocol
Docusate Sodium 100 mg 05/29/25 22:32 05/30/25 19:47
Docusate Sodium 100 Mg Capsule PO 06/26/25 22:31 100 mg
BID SARAH Administration
Ezetimibe 10 mg 05/30/25 08:00 05/30/25 09:10
Ezetimibe (Zetia) 10 Mg Tablet PO 06/27/25 07:59 10 mg
DAILY SARAH Administration
Ergocalciferol 50,000 units 06/05/25 08:00
Ergocalciferol (Vitamin D-2) 11695 Units Capsule PO 07/03/25 07:59
RODRIGUEZ SARAH
Fenofibrate 145 mg 05/30/25 08:00 05/30/25 09:11
Fenofibrate 145 Mg Tablet PO 06/27/25 07:59 145 mg
DAILY SARAH Administration
Furosemide 80 mg 05/30/25 08:00 05/30/25 09:16
Furosemide 80 Mg Tablet PO 06/27/25 07:59 80 mg
DAILY SARAH Administration
Glucagon 1 mg 05/29/25 22:32
Glucagon 1 Mg Vial IM 06/26/25 22:31
PRN PRN
hypoglycemia
Protocol
Guaifenesin 600 mg 05/29/25 22:32 05/30/25 19:48
Guaifenesin 600 Mg Extended Release Tablet PO 06/26/25 22:31 600 mg
BID SARAH Administration
Heparin Sodium 7,200 units 05/29/25 17:54
Heparin 80 Units/Kg Iv Rebolus IV 06/26/25 17:53
PRN PRN
PTT < OR = 64 seconds
Heparin Sodium 3,600 units 05/29/25 17:55 05/30/25 11:17
Heparin 40 Units/Kg Iv Rebolus IV 06/26/25 17:54 3,600 units
PRN PRN Administration
PTT = 64.1 to 72.9 seconds
Hydromorphone HCl 0.25 mg 05/30/25 04:27 05/31/25 04:44
Hydromorphone 0.25 Mg/0.5 Ml Syringe IV 06/13/25 04:26 0.25 mg
Q3HPRN PRN Administration
mod- sever pain
Heparin Sodium 25,000 units in 250 mls @ 0 mls/hr 05/29/25 17:00 05/31/25 08:28
Heparin 32748 Units/250 Ml IV 250 mls
PER PROTOCOL SARAH Administration
Protocol
Per Protocol
Insulin Glargine 10 units/ 0.1 mls @ 0 mls/hr 05/30/25 08:00 05/30/25 09:16
Device SC 06/27/25 07:59 0.1 mls
DAILY SARAH Administration
As Directed
Insulin Aspart 0 units 05/30/25 07:30 05/31/25 07:35
Insulin Aspart Low Resistance 300 Units/3 Ml Pen.Injctr SC 06/27/25 07:29 Not Given
AC SARAH
Protocol
Magnesium Hydroxide 30 ml 05/29/25 22:32
Milk Of Magnesia 30 Ml Cup PO 06/26/25 22:31
[id number] PRN
constipation
Morphine Sulfate 15 mg 05/30/25 20:00 05/31/25 07:48
Morphine 15 Mg Extended Release Tablet PO 06/13/25 19:59 15 mg
Q12 SARAH Administration
Polyethylene Glycol 17 grams 05/30/25 08:00 05/30/25 09:17
Polyethylene Glycol Powder 17 Grams Packet PO 06/27/25 07:59 Not Given
DAILY SARAH
Prednisone 10 mg 05/30/25 08:00 05/31/25 07:49
Prednisone 10 Mg Tablet PO 06/27/25 07:59 10 mg
DAILY SARAH Administration
Fluticasone/Salmeterol 2 puff 05/30/25 08:00 05/31/25 07:30
Advair Hfa 115/21 Inhaler INH 06/27/25 07:59 2 puff
R BID SARAH Administration
Sodium Biphosphate/Sodium Phosphate 135 ml 05/29/25 22:32
Fleet Phosphate Enema (Adult) 135 Ml Bottle RECTAL 06/26/25 22:31
DAILYPRN PRN
if no bm in 5 days, give on day 6
Sodium Chloride 0 flush 05/29/25 23:00
Sodium Chloride 0.9% (Flush) Syringe IV 06/26/25 22:59
PER PROTOCOL SARAH
Zinc Oxide 1 applic 05/29/25 22:32 05/30/25 19:48
Zinc Oxide 20% (Ointment) 30 Gram Tube TOPICAL 06/26/25 22:31 1 applic
BID SARAH Administration
Review of Systems
-
All Other Systems: Not reviewed unless documented
Physical Exam
-
General: Well Developed, Well Nourished and No Apparent Distress; Negative Respiratory Distress
Extremities: Edema (RLE swelling, wrapped w/ NEEMA bandage)
Neurology: Non Focal and No Lateralizing Symptoms
Skin: Warm and Dry
Psych: Calm and Intact Judgement/Insight
Labs
Lab Results
WBC 12.9 10^3/uL (4.8-10.8) H 05/31/25 06:07
RBC 3.27 10^6/uL (4.20-5.40) L 05/31/25 06:07
Hgb 9.8 g/dL (12.0-16.0) L 05/31/25 06:07
Hct 30.5 % (37.0-47.0) L 05/31/25 06:07
MCV 93.3 fL (81.0-99.0) 05/31/25 06:07
MCH 30.0 pg (27.0-31.0) 05/31/25 06:07
MCHC 32.1 g/dL (33.0-37.0) L 05/31/25 06:07
RDW 16.7 % (11.5-14.5) H 05/31/25 06:07
Plt Count 175 10^3/uL (130-400) 05/31/25 06:07
MPV 9.9 fL (7.4-10.4) 05/31/25 06:07
Abs Immat Gran (auto) 0.8 10^3/uL (0-0.05) H 05/31/25 06:07
Absolute Neuts (auto) 8.7 10^3/uL (1.4-6.5) H 05/31/25 06:07
Absolute Lymphs (auto) 2.4 10^3/uL (1.2-3.4) 05/31/25 06:07
Absolute Monos (auto) 1.0 10^3/uL (0.1-0.6) H 05/31/25 06:07
Absolute Eos (auto) 0.0 10^3/uL (0-0.7) 05/31/25 06:07
Absolute Basos (auto) 0.1 10^3/uL (0-0.2) 05/31/25 06:07
Immature Gran % 6.4 % (0-0.5) H 05/31/25 06:07
Neutrophils % 67.0 % (42.2-75.2) 05/31/25 06:07
Lymphocytes % 18.4 % (20.5-51.1) L 05/31/25 06:07
Monocytes % 7.5 % (1.7-9.3) 05/31/25 06:07
Eosinophils % 0.3 % (0-6) 05/31/25 06:07
Basophils % 0.4 % (0-2) 05/31/25 06:07
Creatinine 1.1 mg/dL (0.6-1.0) H 05/31/25 06:07
Vital Signs
Vital Signs
Temp Pulse Resp BP Pulse Ox
97.9 F 60 22 117/57 94
05/31/25 08:50 05/31/25 09:23 05/31/25 09:23 05/31/25 09:23 05/31/25 10:05
[2025-05-31] MEDS: MIRALAX 17 GRAMS PO (10:35)
[2025-05-31] MEDS: LANTUS 0.1 UNITS SC (10:35)
[2025-05-31] MEDS: NOVOLOG FLEXPEN-LOW RESISTANCE 1 UNITS SC ×2 (10:38→17:27)
[2025-05-31] MEDS: TRICOR 145 MG PO (10:40)
[2025-05-31] MEDS: LIPITOR 80 MG PO (10:40)
--- NOTE | 2025-05-31 10:40 | W.PN.PUL3 ---
Today's Communication / Plan
-
Continue heparin drip
Follow hemoglobin
Follow vascular surgery recommendations regarding DVT
Patient will require lifelong anticoagulation
Eventual removal of IVC filter
Will follow
Assessment
-
69-year-old female with previous history of COPD, lung cancer status post minimally invasive wedge resection, right sided hemothorax status post thoracotomy/decortication/evacuation by Dr. Banuelos, DVT/PE on Eliquis, chronic heart failure, chronic
kidney disease presenting to ER with increased pain and swelling of the right lower extremity. On last admission, her oral anticoagulation was held due to hemothorax, which has not been resumed. She underwent IVC filter placement. On arrival,
she was started on IV heparin. Chest x-ray demonstrating moderate right sided pleural effusion, increased from prior. She has no worsening shortness of breath than baseline. She does chronically use 2 L oxygen but was increased to 4 L at rehab.
She is satting 99%.
Extensive right lower lobe extremity DVT
Subacute recent PE/diagnosed 04/2025 s/p IVC filter (IVC filter placed due to right hemothorax/anemia previous admission)
Recurrent R pleural effusion, s/p recent R thoracotomy, decort and evac 05/15/25, chest tube removed 05/19/25
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
Adm (d/c 05/23/25)-Right hemothorax with mediastinal shift, hypoxemic respiratory failure status post mechanical ventilation-intubated 05/14 for thoracotomy (extubated 05/16/2025)
Bilateral pulm emboli with right ventricular strain status post IVC filter placement 05/12/2025, Eliquis discontinued due to hemothorax
R Hemothorax/Fibrothorax s/p right thoracoscopy with minithoracotomy, decortication and evacuation of hematoma by Dr. Banuelos, chest tube removed 05/19/2025
History of non-small cell lung cancer
KRAS positive, PD-L1 expression 1%. Biopsy RIGHT lung at [facility]-11/2024; S/p minimally invasive right lower lobe wedge resection by Dr. Banuelos on 04/15/2025
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
Chronic pain
COPD exacerbation 05/21.
Thrush, 05/22
Essential hypertension
Kidney stones/Proteinuria
Type 2 diabetes mellitus
Mild intermittent asthma
Multinodular goiter
Hypercholesterolemia
Obesity
Anxiety/Insomnia/Restless leg syndrome
Brain aneurysm , Clipped
Back surgery
Parathyroidectomy
[facility]-UTI, Septic shock, syncope likely vasovagal 12/22/24-12/26/24
DH-pseudomonas UTI, JOHNNY, 12/28-01/01/2025
Plan
-
Currently saturating 99% on 4L, baseline use of 2L
Main complaint is right lower extremity discomfort/pain
Denies shortness of breath at rest
Feels slightly anxious
-
PE/DVT not on Eliquis due to hemothorax, s/p IVCF last admission.
Continue heparin drip with close observation
Hemoglobin is stable
Extensive right lower extremity DVT noted: Vascular surgery following the patient.
Further evaluation ongoing
For now continue heparin drip for the next 48 to 72 hours with close observation of hemoglobin.
If there is no evidence for bleeding restart anticoagulation orally without a loading dose.
Recommend eventual removal of IVC filter in the next 2 months if patient stable.
-
Right pleural effusion:
Previously hemothorax. Suspect this right pleural effusion will be chronic. No additional intervention recommended at this point. Particularly as the patient denies any shortness of breath.
Hemoglobin is stable
Not enough fluid for thoracentesis 05/31/2025
Doubt actively bleeding.
-
She feels her shortness of breath is no different than prior
remains on low rate supplemental oxygen
Incentive spirometry encouraged
-
Prior ECHO results are reviewed indicating stable function
Unlikely related to heart failure
Weight loss measures recommended
Obesity likely contributing to respiratory symptoms
At risk for sleep apnea, may consider outpatient sleep study if indicated
Discussed with Dr. Langford by Dr. Smart 05/31/2025.
Will follow
Diagnostic Data
Chest X-Ray:
CT Scan: CHEST 05/29/25- Examination is positive for pulmonary embolism. On the right, most proximal involvement of the distal right main pulmonary artery. On the left, most proximal involvement of the left lower lobe pulmonary artery at and just
inferior to the origin of the superior segmental branch. No evidence for significant right heart strain. Air is present within the anterior aspect of the main pulmonary artery, introduced during intravenous injection. No evidence for air within the
right ventricle. Moderate right pleural collection with heterogeneous density, probably from previous large pneumothorax. Atelectasis involving most of the right lower lobe. Band of atelectasis within the right middle lobe. Scattered areas of
predominantly interstitial parenchymal opacity within both upper lobes and the left lower lobe, also present on presurgical CT scan. Appearance compatible with interstitial fibrosis with a component of honeycombing. No evidence for significant left
pleural effusion.
Echo: 05/11/25- 1. Normal left ventricular size and function.
2. Ejection fraction is 55-60% by visual assessment.
3. Upper normal right ventricle size and normal function. Mild right ventricular hypertrophy.
4. Aortic sclerosis without stenosis.
5. Mild tricuspid regurgitation. Estimated pulmonary artery pressure of 29 mmHg assuming a right atrial pressure of 8 mmHg.
6. Thickened pericardium with trivial effusion.
7. Compared to a prior transthoracic echocardiogram study from 04/25/25 The PA pressure has decreased from 52 to to 29 mmHg.
PFT's: 02/22/25- FVC was 2.39L / 91% predicted. FEV1 was 1.80L / 87% predicted. Ratio 75. TLC was 3.49L / 75% predicted. Diffusion capacity was 65% predicted (mild restriction, mild diffusion impairment)
Reports and relevant images were personally reviewed.
Subjective Data
-
Date of Service:
Date of Service: May 31, 2025
Chief Complaint: Pulmonary Follow Up (Effusion/DVT/PE)
Subjective:
Complaining o right lower extremity pain
Denies shortness of breath at rest
denies hemoptysis or right sided chest discomfort
Remains on heparin drip
Review of Systems
General: Fever (n)
Cardiopulmonary: Dyspnea (none at rest)
GI: Abdominal Pain (n) and Nausea
Neuro: Headache (n)
Objective Data
Data Reviewed
Vital Signs / I&O / Oxygen:
Vital Signs
Temp Pulse Resp BP Pulse Ox
97.9 F 60 22 117/57 94
05/31/25 08:50 05/31/25 09:23 05/31/25 09:23 05/31/25 09:23 05/31/25 10:05
Intake and Output
05/30/25 05/31/25 06/01/25
06:59 06:59 06:59
Intake Total 532 / 544 792 / 792
Output Total 300 / 300
Balance 532 / 544 492 / 492
SaO2 94
Nasal Cannula flow liters per 3
minute
Physical Exam
General: Comfortable
HEENT: Normocephalic
Cardiovascular: S1-S2
Respiratory: Non-Labored Respirations and Other (Decreased breath sounds on the right)
GI: Soft and Non Distended
Neurology: Awake and No Motor Deficits
Skin: Warm
Labs/Micro/Reports
Lab Data
05/31/25 06:07
05/31/25 06:07
Laboratory Results
05/30/25 05/30/25 05/30/25
10:16 17:15 23:44
APTT 69.5 H 126.2 H 94.8 H
05/31/25
06:07
APTT 76.8 H
[2025-05-31] MEDS: LASIX 80 MG PO (10:41)
[2025-05-31] MEDS: MUCINEX PO ×2 (10:42→20:17)
[2025-05-31] MEDS: COLACE 100 MG PO (10:43)
[2025-05-31] MEDS: ZETIA 10 MG PO (10:43)
[2025-05-31 10:54] LABS: Glucose - Point of Care 190 mg/dl (70-99)
--- NOTE | 2025-05-31 10:58 | PTCARENOTE ---
Patient arrived back from IR with bandaid intact on back, no bleeding observed. Patient also went to CT scan. Patient complaining of 8 out of 10 pain on right leg, medicated with Dilaudid 0.25. Patient bathed with CHG, turned on left side at this
time eating late breakfast. Heparin infusing per protocol. No signs of bleeding observed. Patient in good spirits communicating with family via phone.
--- NOTE | 2025-05-31 13:01 | W.PN.HOSP.TC ---
Today's Communication/Plan
-
Monitor vital signs and see plan
CT venogram pending
Continue with IV heparin
Once chronic anticoagulation will be established then IVC filter has to come out
Wean oxygen as tolerated
Assessment / Plan
Assessment / Plan
General: Comfortable
HEENT: Normocephalic, Anicteric, Moist Mucous Membranes
Cardiovascular: Regular Rhythm
Respiratory: Wheeze (slight L sided), Crackles (Basilar), Non-Labored Respirations
GI: Soft, Non Distended and Non Tender
Neurology: Awake, Alert and No Motor Deficits
Psych: calm
New right lower extremity DVT off of anticoagulation
# Recent acute DVT/PE status post IVC filter on 05/12
# History of bilateral DVT on 04/25 however venous Doppler on 05/12 was negative for DVT
Continue with heparin drip
Anticoagulation decision per oncology,Dr Riky Banuelos consulted. Discussed with Dr. Banuelos, requested hematology evaluation regarding anticoagulation. Vascular surgery also following given extent of DVT. CT venogram 05/31 pending.
Once anticoagulation will continue long-term then IVC filter needs to come out
# Worsening hypoxemia secondary to reoccurrence of right pleural effusion unclear etiology unclear if parapneumonic versus recurrence of hemothorax
-O2 requirement increased from 2 to 4 L while at rehab
-Chest x-ray appears to show large right pleural effusion
CT with subacute PE
-IR consulted for thoracentesis, discussed with pulmonary and per them started with thoracentesis and if bloody then will get chest tube. Thoracentesis study ordered. Status post attempt of thoracentesis 05/31, not enough fluid.
- Pulmonary following
- Monitor hemoglobin while on heparin drip
#History of right-sided hemothorax with mediastinal shift secondary to Eliquis after minimally invasive wedge resection on 04/15 for lung cancer status post chest tube on 05/11 since removed on 05/19
- has been off of Eliquis
Oral thrush
- Resolved
Non-small cell lung cancer status post minimally invasive wedge resection on 04/15
History of non-small cell lung cancer
KRAS positive, PD-L1 expression 1%. Biopsy RIGHT lung at [facility]-11/2024; S/p minimally invasive right lower lobe wedge resection by Dr. Banuelos on 04/15/2025
COPD
- Continue albuterol
- Continue prednisone
Chronic HFpEF
- Continue Coreg
- Continue Lasix
Hyponatremia
Monitor
Chronic back pain
- Continue oxycodone, morphine
CKD 3B
- Monitor renal function
Type 2 diabetes
- Continue Lantus
- Insulin sliding scale
Acute on chronic anemia
On last admission had acute blood loss anemia secondary to hemothorax, monitor
- Monitor hemoglobin
2 cm low-density lesion of superior right lower lobe of the liver
Benign thyroid nodule
History of CVA
Buttock pressure injury
Hypercholesterolemia
- Continue fenofibrate, Zetia,, statin
Full code
DVT prophylaxis�heparin drip
I spent a total of 52 minutes with the patient or on the floor. More than 50% of this time involved counseling and coordination of care.
Anticipated Discharge: > 48 hours
Subjective/Interval History
-
Date of Service: May 31, 2025
Denies nausea
Objective Data
-
Labs:
Laboratory Results
05/31/25 05/31/25
06:07 14:30
WBC 12.9 H
Hgb 9.8 L
Hct 30.5 L
Plt Count 175
APTT 76.8 H Pending
Sodium 132 L
Potassium 3.6
Chloride 97 L
Carbon Dioxide 32 H
BUN 37 H
Creatinine 1.1 H
Glucose 115 H
Calcium 9.0
Vital Signs:
Vital Signs
Temp Pulse Resp BP Pulse Ox
97.5 F 66 21 110/57 98
05/31/25 12:00 05/31/25 12:00 05/31/25 12:00 05/31/25 12:00 05/31/25 12:00
I&O
05/30/25 05/31/25 06/01/25
06:59 06:59 06:59
Intake Total 532 / 544 792 / 792
Output Total 300 / 300
Balance 532 / 544 492 / 492
[2025-05-31 15:07] LABS: APTT 53.4 Sec (23.4-35.0)
[2025-05-31] MEDS: HEPARIN 7200 UNITS IV (15:35)
[2025-05-31] MEDS: PROTONIX 40 MG PO (16:55)
[2025-05-31 17:27] LABS: Glucose - Point of Care 162 mg/dl (70-99)
--- NOTE | 2025-05-31 20:00 | PTCARENOTE ---
Received pt from previous shift. Systems reviewed, see flowsheets. Heparin gtt infusing at 1600 units or 16mL/hr through RAC PIV. L midline capped. NSR on heart monitor with a BBB. On 3L NC, SaO2 mid-high 90s. R leg wrapped with NEEMA bandage, weak DP
pulse. Foam on sacrum. Will continue to monitor.
[2025-05-31] MEDS: COLACE PO (20:18)
[2025-05-31 22:07] LABS: Glucose - Point of Care 232 mg/dl (70-99)
[2025-05-31 22:11] LABS: APTT > 200 Sec (23.4-35.0)
[2025-06-01] VITALS (13 sets, daily range): BP systolic 105–149; BP diastolic 59–78; BMI 35.9
[2025-06-01] MEDS: DILAUDID 0.25 MG IV (04:41)
[2025-06-01 06:52] LABS: APTT 78.3 Sec (23.4-35.0)
[2025-06-01 06:58] LABS: Hematocrit 30.9 % (37.0-47.0); Hemoglobin 9.9 g/dL (12.0-16.0); Mean Corp Hgb Conc. 32.0 g/dL (33.0-37.0); Mean Corpuscular Volume 94.2 fL (81.0-99.0); Platelet Count 198 10^3/uL (130-400); Red Cell Dist. Width 16.4 % (11.5-14.5)
[2025-06-01 07:20] LABS: Nucleated Red Blood Cells % 0 %
[2025-06-01 07:31] LABS: Blood Urea Nitrogen 33 mg/dl (7-17); Calcium 8.8 mg/dl (8.4-10.2); Carbon Dioxide 33 mmol/L (22-30); Chloride 96 mmol/L (98-107); Estimated Creatinine Clearance 49 ml/min; Glucose 118 mg/dl (70-99); Potassium 3.7 mmol/L (3.5-5.1); Sodium 133 mmol/L (135-145); eGFR 54.06
[2025-06-01] MEDS: DUONEB 3 ML INH ×4 (07:36→19:30)
[2025-06-01 07:37] LABS: Glucose - Point of Care 136 mg/dl (70-99)
[2025-06-01] MEDS: ADVAIR HFA 115/21 MCG INHALER 2 PUFF INH ×2 (07:37→19:31)
--- NOTE | 2025-06-01 08:57 | W.PN.PUL3 ---
Today's Communication / Plan
-
Continue anticoagulation
Vascular correspondence reviewed-recommended surgical intervention patient thinking about it
From the pulmonary perspective-respiratory status remains unchanged.
Continue oxygen supplementation-baseline
Incentive spirometry
Monitor for bleeding
If there is worsening respiratory status repeat chest imaging to rule out enlarging pleural effusion.
Please call with questions
Assessment
-
69-year-old female with previous history of COPD, lung cancer status post minimally invasive wedge resection, right sided hemothorax status post thoracotomy/decortication/evacuation by Dr. Banuelos, DVT/PE on Eliquis, chronic heart failure, chronic
kidney disease presenting to ER with increased pain and swelling of the right lower extremity. On last admission, her oral anticoagulation was held due to hemothorax, which has not been resumed. She underwent IVC filter placement. On arrival,
she was started on IV heparin. Chest x-ray demonstrating moderate right sided pleural effusion, increased from prior. She has no worsening shortness of breath than baseline. She does chronically use 2 L oxygen but was increased to 4 L at rehab.
She is satting 99%.
Extensive right lower lobe extremity DVT
Subacute recent PE/diagnosed 05/29/2025---> s/p IVC filter (IVC filter placed due to right hemothorax/anemia previous admission)
Recurrent R pleural effusion, s/p recent R thoracotomy, decort and evac 05/15/25, chest tube removed 05/19/25
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
Adm (d/c 05/23/25)-Right hemothorax with mediastinal shift, hypoxemic respiratory failure status post mechanical ventilation-intubated 05/14 for thoracotomy (extubated 05/16/2025)
Bilateral pulm emboli with right ventricular strain status post IVC filter placement 05/12/2025, Eliquis discontinued due to hemothorax
R Hemothorax/Fibrothorax s/p right thoracoscopy with minithoracotomy, decortication and evacuation of hematoma by Dr. Banuelos, chest tube removed 05/19/2025
History of non-small cell lung cancer
KRAS positive, PD-L1 expression 1%. Biopsy RIGHT lung at [facility]-11/2024; S/p minimally invasive right lower lobe wedge resection by Dr. Banuelos on 04/15/2025
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
Chronic pain
COPD exacerbation 05/21.
Thrush, 05/22
Essential hypertension
Kidney stones/Proteinuria
Type 2 diabetes mellitus
Mild intermittent asthma
Multinodular goiter
Hypercholesterolemia
Obesity
Anxiety/Insomnia/Restless leg syndrome
Brain aneurysm , Clipped
Back surgery
Parathyroidectomy
[facility]-UTI, Septic shock, syncope likely vasovagal 12/22/24-12/26/24
DH-pseudomonas UTI, JOHNNY, 12/28-01/01/2025
Plan
-
Currently saturating 99% on 2 L nasal cannula-baseline.
Main complaint is right lower extremity discomfort/pain
Denies shortness of breath at rest
Feels slightly anxious
-
PE/DVT diagnosed this admission, previously not on Eliquis due to hemothorax initial pulmonary embolism diagnosed 05/12/2025, s/p IVCF last admission-due to anemia and right hemothorax.(Plan at discharge was to resume anticoagulation once anemia
stabilized)
Right lower extremities extensive based on CT venogram-extends up to the IVC filter. Vascular surgery recommending surgical intervention but patient is thinking about it.
Continue heparin drip with close observation
Hemoglobin -- slowly drifting down to 9.9. Continue to monitor closely. No evidence for acute bleeding.
-
Recommend eventual removal of IVC filter in the next 2 months if patient stable.
-
Right pleural effusion:
Previously hemothorax. Suspect this right pleural effusion will be chronic. No additional intervention recommended at this point. Particularly as the patient denies any shortness of breath.
Hemoglobin is stable
Not enough fluid for thoracentesis 05/31/2025
Doubt actively bleeding.
-
She feels her shortness of breath is no different than prior
remains on low rate supplemental oxygen
Incentive spirometry encouraged
-
Echocardiogram 05/11/2025: Normal LVEF. (Normal right ventricular size and function. Mild right ventricular hypertrophy. Thickened pericardium with trivial pleural effusion.
Does not appear volume overloaded.
Unlikely related to heart failure
At risk for sleep apnea, may consider outpatient sleep study if indicated
Discussed with Dr. Langford by Dr. Smart 05/31/2025 and 06/01/2025.
-
Patient does not follow-up in our office.
She states that she was seen by pulmonary once in another hospital.
Advised to follow-up with Dr. Banuelos.
She was offered local follow-up at discharge during previous admission.
-
From the pulmonary perspective no additional recommendations.
Continue to observe on anticoagulation.
If there is worsening respiratory status repeat chest imaging to rule out in large right pleural effusion.
Patient contemplating possible transfer to [facility] for vascular procedure.
-
Sign off
Diagnostic Data
Chest X-Ray:
CT Scan: CHEST 05/29/25- Examination is positive for pulmonary embolism. On the right, most proximal involvement of the distal right main pulmonary artery. On the left, most proximal involvement of the left lower lobe pulmonary artery at and just
inferior to the origin of the superior segmental branch. No evidence for significant right heart strain. Air is present within the anterior aspect of the main pulmonary artery, introduced during intravenous injection. No evidence for air within the
right ventricle. Moderate right pleural collection with heterogeneous density, probably from previous large pneumothorax. Atelectasis involving most of the right lower lobe. Band of atelectasis within the right middle lobe. Scattered areas of
predominantly interstitial parenchymal opacity within both upper lobes and the left lower lobe, also present on presurgical CT scan. Appearance compatible with interstitial fibrosis with a component of honeycombing. No evidence for significant left
pleural effusion.
Echo: 05/11/25- 1. Normal left ventricular size and function.
2. Ejection fraction is 55-60% by visual assessment.
3. Upper normal right ventricle size and normal function. Mild right ventricular hypertrophy.
4. Aortic sclerosis without stenosis.
5. Mild tricuspid regurgitation. Estimated pulmonary artery pressure of 29 mmHg assuming a right atrial pressure of 8 mmHg.
6. Thickened pericardium with trivial effusion.
7. Compared to a prior transthoracic echocardiogram study from 04/25/25 The PA pressure has decreased from 52 to to 29 mmHg.
PFT's: 02/22/25- FVC was 2.39L / 91% predicted. FEV1 was 1.80L / 87% predicted. Ratio 75. TLC was 3.49L / 75% predicted. Diffusion capacity was 65% predicted (mild restriction, mild diffusion impairment)
Reports and relevant images were personally reviewed.
Subjective Data
-
Date of Service:
Date of Service: June 01, 2025
Chief Complaint: Pulmonary Follow Up (Effusion/DVT/PE)
Subjective:
Denies any significant respiratory complaints
Denies hemoptysis
Denies chest pain
Review of Systems
Cardiopulmonary: Dyspnea (None at rest) and Cough (n)
Neuro: Headache (n)
Objective Data
Data Reviewed
Vital Signs / I&O / Oxygen:
Vital Signs
Temp Pulse Resp BP Pulse Ox
98.1 F 77 16 149/71 97
06/01/25 03:39 06/01/25 07:39 06/01/25 07:39 06/01/25 06:00 06/01/25 07:39
Intake and Output
05/31/25 06/01/25 06/02/25
06:59 06:59 06:59
Intake Total 792 / 792 800 / 800 532 / 532
Output Total 300 / 300 1550 / 1550
Balance 492 / 492 -750 / -750 532 / 532
SaO2 97
Nasal Cannula flow liters per 3
minute
Physical Exam
General: Comfortable
HEENT: Normocephalic
Cardiovascular: S1-S2
Respiratory: Non-Labored Respirations and Other (Decreased breath sounds on the right)
GI: Soft and Non Distended
Neurology: Awake and No Motor Deficits
Skin: Warm
Labs/Micro/Reports
Lab Data
06/01/25 06:10
06/01/25 06:10
Laboratory Results
05/31/25 05/31/25 06/01/25
14:44 21:42 04:15
APTT 53.4 H > 200 H* Cancelled
06/01/25
06:10
APTT 78.3 H
[2025-06-01] MEDS: NOVOLOG FLEXPEN-LOW RESISTANCE SC ×2 (10:06→12:43)
[2025-06-01] MEDS: LIPITOR 80 MG PO (10:06)
[2025-06-01] MEDS: COREG 6.25 MG PO ×2 (10:06→19:54)
[2025-06-01] MEDS: TRICOR 145 MG PO (10:06)
[2025-06-01] MEDS: COLACE 100 MG PO ×2 (10:06→19:52)
[2025-06-01] MEDS: MS CONTIN (EXTENDED RELEASE) 15 MG PO ×2 (10:06→19:52)
[2025-06-01] MEDS: DELTASONE 10 MG PO (10:07)
[2025-06-01] MEDS: PROTONIX 40 MG PO (10:07)
[2025-06-01] MEDS: LASIX 80 MG PO (10:07)
[2025-06-01] MEDS: MUCINEX 600 MG PO (10:07)
[2025-06-01] MEDS: ZETIA 10 MG PO (10:07)
[2025-06-01] MEDS: MIRALAX 17 GRAMS PO (10:08)
[2025-06-01] MEDS: LANTUS 0.1 UNITS SC (10:08)
[2025-06-01] MEDS: HEPARIN 25000 UNITS/250 ML IV (10:09)
[2025-06-01 12:24] LABS: Glucose - Point of Care 193 mg/dl (70-99)
[2025-06-01] MEDS: NOVOLOG FLEXPEN-MODERATE RESISTANCE 1 UNITS SC (12:43)
[2025-06-01] MEDS: ROXICODONE 5 MG PO ×2 (12:44→18:44)
--- NOTE | 2025-06-01 13:00 | PTCARENOTE ---
Medicated patient with oxycodone for breakthrough pain right flank area rating 10/10. Heparin drip currently infusing at 1200units/hr.
--- NOTE | 2025-06-01 13:16 | W.PN.HOSP.TC ---
Today's Communication/Plan
-
Monitor vitals
See plan
Continue with IV heparin
Discussed with vascular, patient open to mechanical lysis if needed
Wean oxygen as tolerated
Assessment / Plan
Assessment / Plan
General: Comfortable
HEENT: Normocephalic, Anicteric, Moist Mucous Membranes
Cardiovascular: Regular Rhythm
Respiratory: Wheeze (mild L sided), Crackles (Basilar), Non-Labored Respirations
GI: Soft, Non Distended and Non Tender
Neurology: Awake, Alert and No Motor Deficits
Psych: calm
New right lower extremity DVT off of anticoagulation
# Recent acute DVT/PE status post IVC filter on 05/12
# History of bilateral DVT on 04/25 however venous Doppler on 05/12 was negative for DVT
Continue with heparin drip
Anticoagulation decision per oncology,Dr Riky Banuelos consulted. Discussed with Dr. Banuelos, requested hematology evaluation regarding anticoagulation. Vascular surgery also following given extent of DVT. CT venogram 05/31 showed thrombus extension through
the iliac veins and into the IVC up to the level of the filter. Subjectively patient does note improvement in her pain. Initially she was hesitant regarding mechanical lysis however now agreeable. Vascular notified.
Once anticoagulation will continue long-term then IVC filter needs to come out
# Worsening hypoxemia secondary to reoccurrence of right pleural effusion unclear etiology unclear if parapneumonic versus recurrence of hemothorax
-O2 requirement increased from 2 to 4 L while at rehab
-Chest x-ray appears to show large right pleural effusion
CT with subacute PE
-IR consulted for thoracentesis, discussed with pulmonary and per them started with thoracentesis and if bloody then will get chest tube. Status post attempt of thoracentesis 05/31, not enough fluid.
- Pulmonary following
- Monitor hemoglobin while on heparin drip
#History of right-sided hemothorax with mediastinal shift secondary to Eliquis after minimally invasive wedge resection on 04/15 for lung cancer status post chest tube on 05/11 since removed on 05/19
- has been off of Eliquis
Oral thrush
- Resolved
Non-small cell lung cancer status post minimally invasive wedge resection on 04/15
History of non-small cell lung cancer
KRAS positive, PD-L1 expression 1%. Biopsy RIGHT lung at [facility]-11/2024; S/p minimally invasive right lower lobe wedge resection by Dr. Banuelos on 04/15/2025
COPD
- Continue albuterol
- Continue prednisone
Chronic HFpEF
- Continue Coreg
- Continue Lasix
Hyponatremia
Monitor
Chronic back pain
- Continue oxycodone, morphine
CKD 3B
- Monitor renal function
Type 2 diabetes
- Continue Lantus
- Insulin sliding scale
Acute on chronic anemia
On last admission had acute blood loss anemia secondary to hemothorax, monitor
- Monitor hemoglobin
2 cm low-density lesion of superior right lower lobe of the liver
Benign thyroid nodule
History of CVA
Buttock pressure injury
Hypercholesterolemia
- Continue fenofibrate, Zetia,, statin
Full code
DVT prophylaxis�heparin drip
I spent a total of 51 minutes with the patient or on the floor. More than 50% of this time involved counseling and coordination of care.
Anticipated Discharge: > 48 hours
Subjective/Interval History
-
Date of Service: June 01, 2025
Denies nausea
Objective Data
-
Labs:
Laboratory Results
06/01/25 06/01/25 06/01/25
06:10 12:48 13:00
WBC 11.8 H
Hgb 9.9 L
Hct 30.9 L
Plt Count 198
APTT 78.3 H Pending Pending
Sodium 133 L
Potassium 3.7
Chloride 96 L
Carbon Dioxide 33 H
BUN 33 H
Creatinine 1.1 H
Glucose 118 H
Calcium 8.8
Vital Signs:
Vital Signs
Temp Pulse Resp BP Pulse Ox
97.9 F 69 20 147/69 96
06/01/25 11:20 06/01/25 12:00 06/01/25 12:00 06/01/25 12:00 06/01/25 12:00
I&O
05/31/25 06/01/25 06/02/25
06:59 06:59 06:59
Intake Total 792 / 792 800 / 800 532 / 532
Output Total 300 / 300 1550 / 1550
Balance 492 / 492 -750 / -750 532 / 532
[2025-06-01 13:20] LABS: APTT 53.9 Sec (23.4-35.0)
--- NOTE | 2025-06-01 14:27 | CM ---
F/U: PT/OT has not made recommendations yet and patient still on IV heparin. CM spoke to who said [facility] was fine so referral made to them to follow. was busy at work so will see about other choices at another time. Referral sent to
[facility] at least. Case Management to follow. PLAN: Anticipate
[2025-06-01] MEDS: HEPARIN 7200 UNITS IV (14:30)
--- NOTE | 2025-06-01 14:30 | PTCARENOTE ---
PTT 53.9. Administered bolus as per protocol, heparin drip is at 1600units/hr. Next PTT @2029.
[2025-06-01 17:11] LABS: Glucose - Point of Care 306 mg/dl (70-99)
[2025-06-01] MEDS: NOVOLOG FLEXPEN-MODERATE RESISTANCE 7 UNITS SC (17:29)
[2025-06-01] MEDS: MUCINEX PO (19:54)
[2025-06-01 21:34] LABS: Glucose - Point of Care 204 mg/dl (70-99)
[2025-06-01 22:28] LABS: APTT 175.1 Sec (23.4-35.0)
[2025-06-02] VITALS (13 sets, daily range): BP systolic 111–141; BP diastolic 54–64; BMI 36.0
[2025-06-02] MEDS: ROXICODONE 5 MG PO ×3 (03:17→17:56)
--- NOTE | 2025-06-02 05:56 | PTCARENOTE ---
Pt appearing to get sleep throughout night. Respiration even unlabored spo2 96% 2L. Pt able to make needs known. Pt continues on heparin gtt. Call vidal within reach bed in lowest position.
[2025-06-02 06:08] LABS: APTT 95.9 Sec (23.4-35.0)
[2025-06-02] MEDS: HEPARIN 25000 UNITS/250 ML IV (06:10)
[2025-06-02 06:27] LABS: Hematocrit 30.6 % (37.0-47.0); Hemoglobin 9.7 g/dL (12.0-16.0); Mean Corp Hgb Conc. 31.7 g/dL (33.0-37.0); Mean Corpuscular Volume 93.6 fL (81.0-99.0); Nucleated Red Blood Cells % 0 %; Platelet Count 184 10^3/uL (130-400); Red Cell Dist. Width 16.5 % (11.5-14.5)
[2025-06-02] MEDS: DUONEB 3 ML INH ×4 (07:30→19:13)
[2025-06-02] MEDS: ADVAIR HFA 115/21 MCG INHALER 2 PUFF INH ×2 (07:30→19:13)
[2025-06-02 07:34] LABS: Blood Urea Nitrogen 29 mg/dl (7-17); Calcium 9.1 mg/dl (8.4-10.2); Chloride 95 mmol/L (98-107); Estimated Creatinine Clearance 49 ml/min; Glucose 125 mg/dl (70-99); Potassium 3.4 mmol/L (3.5-5.1); Sodium 133 mmol/L (135-145); eGFR 54.06
[2025-06-02 08:36] LABS: Carbon Dioxide 32 mmol/L (22-30)
[2025-06-02 08:47] LABS: Glucose - Point of Care 152 mg/dl (70-99)
[2025-06-02] MEDS: COLACE 100 MG PO ×2 (09:01→20:50)
[2025-06-02] MEDS: MUCINEX PO ×2 (09:02→20:50)
[2025-06-02] MEDS: MS CONTIN (EXTENDED RELEASE) 15 MG PO ×2 (09:02→20:50)
[2025-06-02] MEDS: PROTONIX 40 MG PO (09:02)
[2025-06-02] MEDS: DELTASONE 10 MG PO (09:02)
[2025-06-02] MEDS: LIPITOR 80 MG PO (09:02)
[2025-06-02] MEDS: COREG 6.25 MG PO ×2 (09:03→20:51)
[2025-06-02] MEDS: LASIX 80 MG PO (09:03)
[2025-06-02] MEDS: DULCOLAX 10 MG RECTAL (09:03)
[2025-06-02] MEDS: ZETIA 10 MG PO (09:03)
[2025-06-02] MEDS: TRICOR 145 MG PO (09:03)
[2025-06-02] MEDS: LANTUS 0.1 UNITS SC (09:04)
[2025-06-02] MEDS: MIRALAX 17 GRAMS PO (09:04)
[2025-06-02] MEDS: NOVOLOG FLEXPEN-MODERATE RESISTANCE 1 UNITS SC (09:05)
--- NOTE | 2025-06-02 09:34 | W.PN.ONC2 ---
Today's Communication / Plan
-
.
Impression
Impression
03/2025 lung cancer resection, complicated by post-op DVT/PE
Hemothorax from DOAC, requiring IVC filter and surgical evacuation/decortication
New right lower extremity DVT off of anticoagulation - CT venogram 05/31 showed thrombus extension through the iliac veins and into the IVC up to the level of the filter.
Plan
Plan
Continue heparin
Monitor CBC and clinically for signs/symptoms of bleeding -Hgb stable 9.7g/dL
Continue NEEMA wrap, leg elevation
follow up vascular surgery evaluation of CT venogram to consider intervention
Subjective/Objective
Subjective
surgical site pain improved
right calf throbbing unchanged
denies overt bleeding or new bruising
Vital Signs:
Vital Signs
Temp Pulse Resp BP Pulse Ox
98.6 F 64 14 125/54 96
06/02/25 03:21 06/02/25 09:03 06/02/25 07:32 06/02/25 09:03 06/02/25 07:32
Lab Results:
Laboratory Data
WBC 12.4 10^3/uL (4.8-10.8) H 06/02/25 05:41
Hgb 9.7 g/dL (12.0-16.0) L 06/02/25 05:41
Plt Count 184 10^3/uL (130-400) 06/02/25 05:41
APTT 95.9 Sec (23.4-35.0) H 06/02/25 05:41
eGFR 54.06 06/02/25 05:41
Physical Exam
HEENT: Moist Mucous Membranes; No Jaundice
Pulmonary: Other (unlabored)
GI: Soft
Extremities: Pulses Present and Edema (RLE wrapped in NEEMA)
[2025-06-02] MEDS: KCL 40 MEQ PO (10:51)
[2025-06-02 12:19] LABS: Glucose - Point of Care 270 mg/dl (70-99)
[2025-06-02 12:19] LABS: APTT 75.5 Sec (23.4-35.0)
[2025-06-02] MEDS: NOVOLOG FLEXPEN-MODERATE RESISTANCE 5 UNITS SC ×2 (12:39→17:59)
[2025-06-02] MEDS: TYLENOL 650 MG PO (13:03)
--- NOTE | 2025-06-02 13:04 | W.PN.HOSP.TC ---
Today's Communication/Plan
-
Monitor vitals
See plan
Continue with IV heparin
Discussed with vascular surgery yesterday and they will see again patient tomorrow for definitive plan for intervention
Patient agreeable for intervention if needed
Wean oxygen as tolerated
Assessment / Plan
Assessment / Plan
General: Comfortable
HEENT: Normocephalic, Anicteric, Moist Mucous Membranes
Cardiovascular: Regular Rhythm
Respiratory: Wheeze (mild L sided), Crackles (Basilar), Non-Labored Respirations
GI: Soft, Non Distended and Non Tender
Neurology: Awake, Alert and No Motor Deficits
Psych: calm
New right lower extremity DVT off of anticoagulation
# Recent acute DVT/PE status post IVC filter on 05/12
# History of bilateral DVT on 04/25 however venous Doppler on 05/12 was negative for DVT
Continue with heparin drip
Anticoagulation decision per oncology,Dr Riky Banuelos consulted. Discussed with Dr. Banuelos, requested hematology evaluation regarding anticoagulation. Vascular surgery also following given extent of DVT. CT venogram 05/31 showed thrombus extension through
the iliac veins and into the IVC up to the level of the filter. Subjectively patient does note improvement in her pain. Initially she was hesitant regarding mechanical lysis however now agreeable. Vascular aware.
Once anticoagulation will continue long-term then IVC filter needs to come out
# Worsening hypoxemia secondary to reoccurrence of right pleural effusion unclear etiology unclear if parapneumonic versus recurrence of hemothorax
-O2 requirement increased from 2 to 4 L while at rehab
-Chest x-ray appears to show large right pleural effusion
CT with subacute PE
-IR consulted for thoracentesis, discussed with pulmonary and per them started with thoracentesis and if bloody then will get chest tube. Status post attempt of thoracentesis 05/31, not enough fluid.
- Pulmonary following
- Monitor hemoglobin while on heparin drip
#History of right-sided hemothorax with mediastinal shift secondary to Eliquis after minimally invasive wedge resection on 04/15 for lung cancer status post chest tube on 05/11 since removed on 05/19
- has been off of Eliquis
Hypokalemia
Replete
Oral thrush
- Resolved
Non-small cell lung cancer status post minimally invasive wedge resection on 04/15
History of non-small cell lung cancer
KRAS positive, PD-L1 expression 1%. Biopsy RIGHT lung at [facility]-11/2024; S/p minimally invasive right lower lobe wedge resection by Dr. Banuelos on 04/15/2025
COPD
- Continue albuterol
- Continue prednisone
Chronic HFpEF
- Continue Coreg
- Continue Lasix
Hyponatremia
Monitor
Chronic back pain
- Continue oxycodone, morphine
CKD 3B
- Monitor renal function
Type 2 diabetes
- Continue Lantus
- Insulin sliding scale
Acute on chronic anemia
On last admission had acute blood loss anemia secondary to hemothorax, monitor
- Monitor hemoglobin
2 cm low-density lesion of superior right lower lobe of the liver
Benign thyroid nodule
History of CVA
Buttock pressure injury
Hypercholesterolemia
- Continue fenofibrate, Zetia,, statin
Full code
DVT prophylaxis�heparin drip
I spent a total of 52 minutes with the patient or on the floor. More than 50% of this time involved counseling and coordination of care.
Anticipated Discharge: > 48 hours
Subjective/Interval History
-
Date of Service: June 02, 2025
Denies nausea
Objective Data
-
Labs:
Laboratory Results
06/02/25 06/02/25
05:41 11:43
WBC 12.4 H
Hgb 9.7 L
Hct 30.6 L
Plt Count 184
APTT 95.9 H 75.5 H
Sodium 133 L
Potassium 3.4 L
Chloride 95 L
Carbon Dioxide 32 H
BUN 29 H
Creatinine 1.1 H
Glucose 125 H
Calcium 9.1
Vital Signs:
Vital Signs
Temp Pulse Resp BP Pulse Ox
97.9 F 82 14 117/55 95
06/02/25 07:30 06/02/25 11:19 06/02/25 11:19 06/02/25 10:00 06/02/25 11:19
I&O
06/01/25 06/02/25 06/03/25
06:59 06:59 06:59
Intake Total 800 / 800 2201 / 2201 240 / 240
Output Total 1550 / 1550 1570 / 1570
Balance -750 / -750 631 / 631 240 / 240
[2025-06-02] MEDS: DESENEX/MITRAZOL/ZEASORB 1 APPLIC TOPICAL ×2 (17:22→20:54)
[2025-06-02 17:28] LABS: Glucose - Point of Care 252 mg/dl (70-99)
[2025-06-02] MEDS: NOVOLOG FLEXPEN 2 UNITS SC (17:58)
--- NOTE | 2025-06-02 18:19 | PTCARENOTE ---
Patient complaining of right sided rib pain radiating to right breast pain 10 out of [address] Chou and EKG and Tropnin completed. EKG SInus Bradycardia. Blood pressure 120/50. Roxicodone 5 mg administered for pain. Pain is now 6.5 out of
10.
[2025-06-02 18:48] LABS: Troponin I 0.018 ng/ml
--- NOTE | 2025-06-02 19:05 | PTCARENOTE ---
received pt from previous nurse. pt AAOx3. 94% on 2L. Pt resting comfortably, no signs of SOB or respiratory distress. Heparin gtt see chart. Call vidal in reach.
[2025-06-02 22:35] LABS: Glucose - Point of Care 213 mg/dl (70-99)
[2025-06-03] VITALS (16 sets, daily range): BP systolic 101–141; BP diastolic 50–126; PULSE 74; O2SAT 95; BMI 34.9
[2025-06-03] MEDS: HEPARIN 25000 UNITS/250 ML IV (01:25)
[2025-06-03 05:12] LABS: Hematocrit 31.1 % (37.0-47.0); Hemoglobin 9.6 g/dL (12.0-16.0); Mean Corp Hgb Conc. 30.9 g/dL (33.0-37.0); Mean Corpuscular Volume 94.8 fL (81.0-99.0); Nucleated Red Blood Cells % 0 %; Platelet Count 155 10^3/uL (130-400); Red Cell Dist. Width 16.6 % (11.5-14.5)
[2025-06-03 05:54] LABS: Blood Urea Nitrogen 24 mg/dl (7-17); Calcium 9.3 mg/dl (8.4-10.2); Chloride 95 mmol/L (98-107); Estimated Creatinine Clearance 49 ml/min; Glucose 101 mg/dl (70-99); Potassium 3.9 mmol/L (3.5-5.1); Sodium 134 mmol/L (135-145); eGFR 54.06
[2025-06-03 06:55] LABS: APTT 116.4 Sec (23.4-35.0)
[2025-06-03] MEDS: ADVAIR HFA 115/21 MCG INHALER 2 PUFF INH ×2 (07:16→20:26)
[2025-06-03] MEDS: DUONEB 3 ML INH ×4 (07:16→20:26)
[2025-06-03] MEDS: NOVOLOG FLEXPEN-MODERATE RESISTANCE SC (08:23)
[2025-06-03 08:25] LABS: Glucose - Point of Care 122 mg/dl (70-99)
[2025-06-03] MEDS: NOVOLOG FLEXPEN 2 UNITS SC ×3 (08:50→18:21)
[2025-06-03] MEDS: LANTUS 0.1 UNITS SC (08:50)
[2025-06-03] MEDS: MIRALAX 17 GRAMS PO (08:50)
[2025-06-03] MEDS: DELTASONE 10 MG PO (08:51)
[2025-06-03] MEDS: MUCINEX 600 MG PO (08:51)
[2025-06-03] MEDS: LIPITOR 80 MG PO (08:51)
[2025-06-03] MEDS: COREG 6.25 MG PO ×2 (08:51→20:20)
[2025-06-03] MEDS: TRICOR 145 MG PO (08:51)
[2025-06-03] MEDS: PROTONIX 40 MG PO (08:52)
[2025-06-03] MEDS: DESENEX/MITRAZOL/ZEASORB 1 APPLIC TOPICAL ×2 (08:52→20:20)
[2025-06-03] MEDS: ZETIA 10 MG PO (08:52)
[2025-06-03] MEDS: COLACE 100 MG PO ×2 (08:52→20:20)
[2025-06-03] MEDS: LASIX 80 MG PO (08:52)
[2025-06-03] MEDS: MS CONTIN (EXTENDED RELEASE) 15 MG PO ×2 (08:52→20:19)
[2025-06-03 09:06] LABS: Carbon Dioxide 33 mmol/L (22-30)
--- NOTE | 2025-06-03 09:33 | W.PN.VS ---
Addendum entered and electronically signed by Romie Spicer III, MD 06/03/25 15:56:
This patient was seen and examined in collaboration with ZOHRA Mckeon. I agree with the history and physical exam as well as the assessment and plan. I have the following additions:
She is clinically improving and has no significant complaints at the moment. She reports dramatic improvement in her leg swelling and has no pain currently.
Had a long conversation with the patient and her daughter (bedside).
Explained the clinical events up to this point, specifically discussing the LE DVT, PE and iliocaval thrombus along with the IVC filter
Once again discussed options for intervention which would include:
1. continuing systemic anticoagulation, leg elevation, compression, observation and no surgical intervention. The benefits and rationale for this approach were discussed with both of them in detail. Risks of this approach were discussed with them
in detail including but not limited to ongoing swelling, leg heaviness, persistent thrombus and potential for postphlebitic syndrome. The advantage of avoiding surgical procedures and the associated potential for complications in someone who has
had a very complicated postoperative course to date where discussed.
2. mechanical lysis with continued anticoagulation along with continued leg elevation, compression and observation. The technical aspects of this procedure were discussed with both of them in detail. The benefits and rationale for this approach
were discussed with both of them in detail. Operative risks were discussed with them in detail including but not limited to bleeding, vascular access site injury, infection, contrast nephropathy, IVC filter disruption, pulmonary embolism, distal
embolization and the need for additional procedures.
I explained to the patient and her daughter that both options are available at the moment but given her symptomatic improvement it would be perfectly reasonable to avoid surgical intervention and the associated risks/complications. I explained that
this approach might be more desirable right now given her complicated post op course to date.
Both Mrs. Zazueta and her daughter both expressed a clear understanding of our conversation and her options and have decided to proceed with a non-surgical approach right now.
We recommend PT/OOB/ambulate. Continue compression from toes to the proximal thigh. Leg elevation in bed. OK to transition to oral anticoagulation. Would observe her clinically for a few days (over the weekend, perhaps) and see how she does with
this approach, especially with ambulation.
Will follow peripherally.
Call with questions/concerns.
Signed:
Romie Spicer III, MD
Vascular Surgery
[facility]
Original Note:
Today's Communication / Plan
-
Seen and assessed with Dr. Spicer
Assessment/Plan
-
69-year-old female with right lower extremity DVT
Plan:
Plan to continue compression, elevation and anticoagulation. Can convert from IV to p.o. no plans for vascular intervention as patient has had significant improvement with noninvasive therapies. Patient agreeable to this plan.
Subjective Data
-
Date of Service: June 03, 2025
Patient seen at bedside this a.m. with Dr. Spicer. Patient has no new complaints. No events overnight. Leg remains wrapped in Channing with significant reduction in swelling
Objective Data
-
Vital Signs
Temp Pulse Resp BP Pulse Ox
97.8 F 60 16 115/69 96
06/03/25 08:12 06/03/25 08:51 06/03/25 07:17 06/03/25 08:51 06/03/25 07:17
Intake and Output
06/02/25 06/03/25 06/04/25
06:59 06:59 06:59
Intake Total 2201 / 2201 1616 / 1616
Output Total 1570 / 1570 1750 / 1750
Balance 631 / 631 -134 / -134
Intake:
Oral fluids 1775 / 1775 1460 / 1460
IV fluids (Total) 156 / 156
IV piggybacks 426 / 426
Output:
Urine, Voided 1570 / 1570 1750 / 1750
Other:
How many times incontinent 1 2
SATURATED amount urine
Lab Results
06/03/25 04:59
06/03/25 04:59
Calcium 9.3 mg/dl (8.4-10.2) 06/03/25 04:59
Magnesium 1.6 mg/dl (1.6-2.3) 05/29/25 15:52
Total Bilirubin 1.1 mg/dl (0.2-1.3) 05/30/25 05:26
AST 29 U/L (14-36) 05/30/25 05:26
ALT 16 U/L (0-35) 05/30/25 05:26
Alkaline Phosphatase 65 U/L (38-126) 05/30/25 05:26
Total Protein Cancelled 05/30/25 13:39
Albumin 3.6 g/dl (3.5-5.0) 05/30/25 05:26
Physical Exam
-
AAO x 3
No tachypnea on 2 L nasal cannula
No tachycardia
Abdomen soft
Right lower extremity Channing wrap removed and replaced, leg soft, significant reduction in swelling
Foot warm and pink
--- NOTE | 2025-06-03 11:52 | W.PN.SURGUPD ---
Surgical Update
Surgical Update
It will be extremely rare for someone to bleed for over 1 month after the surgery, even on anticoagulation, unless there is an underlying hematological disorder. I do not see any evidence that she is actively bleeding now. The right pleural effusion
is most likely reactive, serosanguineous fluid from surgery and PEs. Her hemoglobin has been stable between 9.5 to 10. Unless we anticoagulate her, she will continue to have the same problem. Since her surgery, she has not been ambulating due to her
intolerance to pain. I think she needs to be anticoagulated and get her out of bed, and make her walk. And follow her hemoglobin.
--- NOTE | 2025-06-03 12:11 | W.PN.ONC2 ---
Documented by User: ZOHRA Ledezma 06/03/25 12:17
Today's Communication / Plan
-
Pt will need close monitoring of her CBC after discharge on anticoagulation which should be checked with her primary care provider
Impression
Impression
03/2025 lung cancer resection, complicated by post-op DVT/PE
Hemothorax from DOAC, requiring IVC filter and surgical evacuation/decortication
New right lower extremity DVT off of anticoagulation - CT venogram 05/31 showed thrombus extension through the iliac veins and into the IVC up to the level of the filter.
Plan
Plan
on heparin, would consider transition to DOAC if no contraindications noted by Dr. Riky Banuelos after review of CT chest
Monitor CBC and clinically for signs/symptoms of bleeding -Hgb stable
vascular surgery no plans for vascular intervention with recommendations for compression, elevation, and anticoagulation
Subjective/Objective
Subjective
denies overt bleeding
post op pain exacerbated by movement
Vital Signs:
Vital Signs
Temp Pulse Resp BP Pulse Ox
98.2 F 67 16 122/54 95
06/03/25 11:25 06/03/25 11:18 06/03/25 11:18 06/03/25 10:00 06/03/25 10:00
Lab Results:
Laboratory Data
WBC 14.2 10^3/uL (4.8-10.8) H 06/03/25 04:59
Hgb 9.6 g/dL (12.0-16.0) L 06/03/25 04:59
Plt Count 155 10^3/uL (130-400) 06/03/25 04:59
APTT 116.4 Sec (23.4-35.0) H 06/03/25 06:19
eGFR 54.06 06/03/25 04:59
Physical Exam
Gen NAD
HEENT: Moist Mucous Membranes; No Jaundice
Pulmonary: unlabored
GI: Soft
Extremities: Pulses Present and Edema (RLE wrapped in NEEMA)

Documented by User: Bulmaro Juarez MD 06/03/25 13:20
Plan
Plan
on heparin, would consider transition to DOAC if no contraindications noted by Dr. Riky Banuelos after review of CT chest
Monitor CBC and clinically for signs/symptoms of bleeding -Hgb stable
vascular surgery no plans for vascular intervention with recommendations for compression, elevation, and anticoagulation
Hematology Addendum:
Patient seen and evaluated and agree w/ CHERRY CUTTER note and plan as outlined
-anticoagulation ongoing w/ heparin gtt
-h/o hemothorax - Dr. Riky Banuelos following
-transition to DOAC - if no contraindications noted by Dr. Riky Banuelos after review of CT chest
-follow CBC closely
Will continue to follow with you.
[2025-06-03 12:26] LABS: Glucose - Point of Care 177 mg/dl (70-99)
[2025-06-03] MEDS: NOVOLOG FLEXPEN-MODERATE RESISTANCE 1 UNITS SC (12:53)
--- NOTE | 2025-06-03 13:40 | W.PN.HOSP.TC ---
Addendum entered and electronically signed by Myron Langford MD 06/03/25 14:47:
Hematology recommended 5 mg twice daily dosing
Addendum entered and electronically signed by Myron Langford MD 06/03/25 14:42:
Discussed with hematology. Will start patient on Eliquis 5 mg twice daily tonight. Discontinue heparin drip once Eliquis is started. Discussed with RN
Original Note:
Today's Communication/Plan
-
monitor vital signs and see plan
Vascular surgery discussed, no plan for mechanical lysis at this time
Hematology to decide regarding if needs to give loading dose of Eliquis for anticoagulation
PT/OT
Wean oxygen as tolerated
Assessment / Plan
Assessment / Plan
General: Comfortable
HEENT: Normocephalic, Anicteric, Moist Mucous Membranes
Cardiovascular: Regular Rhythm
Respiratory: Wheeze (mild L sided), Crackles (Basilar), Non-Labored Respirations
GI: Soft, Non Distended and Non Tender
Neurology: Awake, Alert and No Motor Deficits
Psych: calm
New right lower extremity DVT off of anticoagulation
# Recent acute DVT/PE status post IVC filter on 05/12
# History of bilateral DVT on 04/25 however venous Doppler on 05/12 was negative for DVT
Continue with heparin drip
Anticoagulation decision per oncology,Dr Riky Banuelos consulted. Discussed with Dr. Banuelos, requested hematology evaluation regarding anticoagulation. Vascular surgery also following given extent of DVT. CT venogram 05/31 showed thrombus extension through
the iliac veins and into the IVC up to the level of the filter. Subjectively patient does note improvement in her pain. Initially she was hesitant regarding mechanical lysis however now agreeable. Vascular aware. vascular surgery discussed with
patient and plan is to continue anticoagulation and there is no plan for mechanical lysis at this time. Discussed with hematology and they will decide if patient needs loading dose of Eliquis or can be started at 5 mg twice daily
Once anticoagulation will continue long-term then IVC filter needs to come out. Discussed with pulmonary and this should be addressed in a month as currently still has clot until the IVC filter
# Worsening hypoxemia secondary to reoccurrence of right pleural effusion unclear etiology unclear if parapneumonic versus recurrence of hemothorax
-O2 requirement increased from 2 to 4 L while at rehab
-Chest x-ray appears to show large right pleural effusion
CT with subacute PE
-IR consulted for thoracentesis, discussed with pulmonary and per them started with thoracentesis and if bloody then will get chest tube. Status post attempt of thoracentesis 05/31, not enough fluid.
- Pulmonary following
- Monitor hemoglobin while on heparin drip
#History of right-sided hemothorax with mediastinal shift secondary to Eliquis after minimally invasive wedge resection on 04/15 for lung cancer status post chest tube on 05/11 since removed on 05/19
- has been off of Eliquis
Hypokalemia
Replete
Oral thrush
- Resolved
Non-small cell lung cancer status post minimally invasive wedge resection on 04/15
History of non-small cell lung cancer
KRAS positive, PD-L1 expression 1%. Biopsy RIGHT lung at [facility]-11/2024; S/p minimally invasive right lower lobe wedge resection by Dr. Banuelos on 04/15/2025
COPD
- Continue albuterol
- Continue prednisone
Chronic HFpEF
- Continue Coreg
- Continue Lasix
Hyponatremia
Monitor
Chronic back pain
- Continue oxycodone, morphine
CKD 3B
- Monitor renal function
Type 2 diabetes
- Continue Lantus
- Insulin sliding scale
Acute on chronic anemia
On last admission had acute blood loss anemia secondary to hemothorax, monitor
- Monitor hemoglobin
2 cm low-density lesion of superior right lower lobe of the liver
Benign thyroid nodule
History of CVA
Buttock pressure injury
Hypercholesterolemia
- Continue fenofibrate, Zetia,, statin
Full code
DVT prophylaxis�heparin drip
I spent a total of 52 minutes with the patient or on the floor. More than 50% of this time involved counseling and coordination of care.
Anticipated Discharge: 24 - 48 hours
Subjective/Interval History
-
Date of Service: June 03, 2025
denies nausea
Objective Data
-
Labs:
Laboratory Results
06/03/25 06/03/25 06/03/25
04:59 06:19 13:10
WBC 14.2 H
Hgb 9.6 L
Hct 31.1 L
Plt Count 155
APTT 116.4 H Pending
Sodium 134 L
Potassium 3.9
Chloride 95 L
Carbon Dioxide 33 H
BUN 24 H
Creatinine 1.1 H
Glucose 101 H
Calcium 9.3
Vital Signs:
Vital Signs
Temp Pulse Resp BP Pulse Ox
98.2 F 67 16 122/54 95
06/03/25 11:25 06/03/25 11:18 06/03/25 11:18 06/03/25 10:00 06/03/25 10:00
I&O
06/02/25 06/03/25 06/04/25
06:59 06:59 06:59
Intake Total 2201 / 2201 1616 / 1616
Output Total 1570 / 1570 1750 / 1750 700 / 700
Balance 631 / 631 -134 / -134 -700 / -700
[2025-06-03 14:24] LABS: APTT 59.6 Sec (23.4-35.0)
[2025-06-03] MEDS: ROXICODONE 5 MG PO (15:13)
[2025-06-03] MEDS: HEPARIN 7200 UNITS IV (15:44)
[2025-06-03] MEDS: TYLENOL 650 MG PO (15:49)
--- NOTE | 2025-06-03 17:35 | CM ---
F/U: Hospitalist stated unsure if patient will be ready. PT/OT evaluated the patient later in the day, needs SNF as we suspected. [facility] accepted, but have to get Authorization for SNF when ready. PLAN: SNF when ready.
[2025-06-03 17:50] LABS: Glucose - Point of Care 302 mg/dl (70-99)
[2025-06-03] MEDS: NOVOLOG FLEXPEN-MODERATE RESISTANCE 7 UNITS SC (18:20)
--- NOTE | 2025-06-03 19:00 | PTCARENOTE ---
assumed care pt from dayshift nurse. pt AAOx3. 96% on 3L. Pt resting comfortably, no signs of SOB or respiratory distress. Heparin gtt see chart. Call vidal in reach.
[2025-06-03] MEDS: MUCINEX PO (20:17)
[2025-06-03] MEDS: ELIQUIS 5 MG PO (20:19)
[2025-06-03 22:24] LABS: Glucose - Point of Care 210 mg/dl (70-99)
[2025-06-04] VITALS (13 sets, daily range): BP systolic 113–141; BP diastolic 60–73; PULSE 70–73; O2SAT 96; BMI 34.9
[2025-06-04] MEDS: ROXICODONE 5 MG PO ×2 (01:48→16:07)
[2025-06-04 03:44] LABS: Hematocrit 32.1 % (37.0-47.0); Hemoglobin 10.2 g/dL (12.0-16.0); Mean Corp Hgb Conc. 31.8 g/dL (33.0-37.0); Mean Corpuscular Volume 93.0 fL (81.0-99.0); Platelet Count 189 10^3/uL (130-400); Red Cell Dist. Width 16.7 % (11.5-14.5)
[2025-06-04 03:55] LABS: Blood Urea Nitrogen 28 mg/dl (7-17); Calcium 9.4 mg/dl (8.4-10.2); Chloride 92 mmol/L (98-107); Estimated Creatinine Clearance 41 ml/min; Glucose 129 mg/dl (70-99); Potassium 4.2 mmol/L (3.5-5.1); Sodium 133 mmol/L (135-145); eGFR 44.24
[2025-06-04 04:03] LABS: Carbon Dioxide 36 mmol/L (22-30)
[2025-06-04] MEDS: ADVAIR HFA 115/21 MCG INHALER 2 PUFF INH ×2 (07:37→20:27)
[2025-06-04] MEDS: DUONEB 3 ML INH ×4 (07:37→20:27)
[2025-06-04] MEDS: MIRALAX 17 GRAMS PO (08:28)
[2025-06-04] MEDS: COREG 6.25 MG PO ×2 (08:30→19:48)
[2025-06-04] MEDS: LASIX 80 MG PO (08:30)
[2025-06-04] MEDS: COLACE 100 MG PO ×2 (08:30→19:48)
[2025-06-04] MEDS: PROTONIX 40 MG PO (08:30)
[2025-06-04] MEDS: ZETIA 10 MG PO (08:30)
[2025-06-04] MEDS: ELIQUIS 5 MG PO ×2 (08:30→19:47)
[2025-06-04] MEDS: LIPITOR 80 MG PO (08:30)
[2025-06-04] MEDS: DELTASONE 10 MG PO (08:30)
[2025-06-04] MEDS: DESENEX/MITRAZOL/ZEASORB 1 APPLIC TOPICAL ×2 (08:30→19:49)
[2025-06-04] MEDS: TRICOR 145 MG PO (08:30)
[2025-06-04] MEDS: MS CONTIN (EXTENDED RELEASE) 15 MG PO ×2 (08:30→19:47)
[2025-06-04] MEDS: MUCINEX 600 MG PO (08:30)
[2025-06-04] MEDS: LANTUS 0.1 UNITS SC (09:31)
[2025-06-04] MEDS: NOVOLOG FLEXPEN-MODERATE RESISTANCE SC (09:31)
[2025-06-04] MEDS: NOVOLOG FLEXPEN 2 UNITS SC ×3 (09:31→17:58)
[2025-06-04 09:41] LABS: Glucose - Point of Care 146 mg/dl (70-99)
--- NOTE | 2025-06-04 12:56 | W.PN.HOSP.TC ---
Today's Communication/Plan
-
Monitor vitals
See plan
Transfer out of IMU
Wean oxygen as tolerated
Continue with Eliquis
Monitor hemoglobin
Bladder scan as needed
Monitor renal function
Hold Lasix for now
Assessment / Plan
Assessment / Plan
General: Comfortable
HEENT: Normocephalic, Anicteric, Moist Mucous Membranes
Cardiovascular: Regular Rhythm
Respiratory: Wheeze (mild L sided), Crackles (Basilar), Non-Labored Respirations
GI: Soft, Non Distended and Non Tender
Neurology: Awake, Alert and No Motor Deficits
Psych: calm
New right lower extremity DVT off of anticoagulation
# Recent acute DVT/PE status post IVC filter on 05/12
# History of bilateral DVT on 04/25 however venous Doppler on 05/12 was negative for DVT
Continue with heparin drip
Anticoagulation decision per oncology,Dr Riky Banuelos consulted. Discussed with Dr. Banuelos, requested hematology evaluation regarding anticoagulation. Vascular surgery also following given extent of DVT. CT venogram 05/31 showed thrombus extension through
the iliac veins and into the IVC up to the level of the filter. Initially mechanical lysis was recommended however patient symptoms continue to improve. Now vascular surgery recommended anticoagulation and no plan for surgery. Hematology
recommended starting Eliquis 5 mg twice daily.
once anticoagulation will continue long-term then IVC filter needs to come out. Discussed with pulmonary and this should be addressed in a month as currently still has clot until the IVC filter
# Worsening hypoxemia secondary to reoccurrence of right pleural effusion unclear etiology unclear if parapneumonic versus recurrence of hemothorax
-O2 requirement increased from 2 to 4 L while at rehab
-Chest x-ray appears to show large right pleural effusion
CT with subacute PE
-IR consulted for thoracentesis, discussed with pulmonary and per them started with thoracentesis and if bloody then will get chest tube. Status post attempt of thoracentesis 05/31, not enough fluid.
- Pulmonary following
- Monitor hemoglobin
#History of right-sided hemothorax with mediastinal shift secondary to Eliquis after minimally invasive wedge resection on 04/15 for lung cancer status post chest tube on 05/11 since removed on 05/19
Hypokalemia
Replete
Oral thrush
- Resolved
CKD 3B
- Monitor renal function
Intermittent urinary retention, continue with bladder scan
Non-small cell lung cancer status post minimally invasive wedge resection on 04/15
History of non-small cell lung cancer
KRAS positive, PD-L1 expression 1%. Biopsy RIGHT lung at [facility]-11/2024; S/p minimally invasive right lower lobe wedge resection by Dr. Banuelos on 04/15/2025
COPD
- Continue albuterol
- Continue prednisone
Chronic HFpEF
- Continue Coreg
- Hold Lasix given elevated creatinine
Hyponatremia
Monitor
Chronic back pain
- Continue oxycodone, morphine
Type 2 diabetes
- Continue Lantus
- Insulin sliding scale
Acute on chronic anemia
On last admission had acute blood loss anemia secondary to hemothorax, monitor
- Monitor hemoglobin
2 cm low-density lesion of superior right lower lobe of the liver
Benign thyroid nodule
History of CVA
Buttock pressure injury
Hypercholesterolemia
- Continue fenofibrate, Zetia,, statin
Full code
DVT prophylaxis�Eliquis
I spent a total of 51 minutes with the patient or on the floor. More than 50% of this time involved counseling and coordination of care.
Anticipated Discharge: 24 - 48 hours
Subjective/Interval History
-
Date of Service: June 04, 2025
Denies nausea
Objective Data
-
Labs:
Laboratory Results
06/04/25
03:09
WBC 15.5 H
Hgb 10.2 L
Hct 32.1 L
Plt Count 189 D
Sodium 133 L
Potassium 4.2
Chloride 92 L
Carbon Dioxide 36 H
BUN 28 H
Creatinine 1.3 H
Glucose 129 H
Calcium 9.4
Vital Signs:
Vital Signs
Temp Pulse Resp BP Pulse Ox
97.2 F 74 20 113/64 97
06/04/25 11:29 06/04/25 11:08 06/04/25 11:08 06/04/25 10:00 06/04/25 10:01
I&O
06/03/25 06/04/25 06/05/25
06:59 06:59 06:59
Intake Total 1616 / 1616 280 / 280
Output Total 1750 / 1750 1500 / 1500
Balance -134 / -134 -1220 / -1220
[2025-06-04] MEDS: NOVOLOG FLEXPEN-MODERATE RESISTANCE 5 UNITS SC (13:46)
[2025-06-04 13:51] LABS: Glucose - Point of Care 299 mg/dl (70-99)
--- NOTE | 2025-06-04 15:39 | PTCARENOTE ---
Pt received in bed @ 0700. AAPxOx3, drowsy and lethargic. Brandon@ 97% on 3L NC. Scheduled Eliquis administered. RLE with NEEMA wrap intact. Pt can with sensation intact and palpable pulse in RLE. Downgraded to telemetry.
--- NOTE | 2025-06-04 16:40 | PTCARENOTE ---
Pt was received from IMU to room 404-1. Pt stood up and took a few steps to transfer to the unit bed with a walker and 2 assist. VSS, POX 92% on 2L NC. Pt feeling short of breath while ambulating. Pt oriented to the room and call vidal in reach.
[2025-06-04 17:09] LABS: Glucose - Point of Care 243 mg/dl (70-99)
[2025-06-04] MEDS: NOVOLOG FLEXPEN-MODERATE RESISTANCE 3 UNITS SC (17:59)
[2025-06-04] MEDS: MUCINEX PO (19:47)
[2025-06-04 21:24] LABS: Glucose - Point of Care 348 mg/dl (70-99)
[2025-06-04] MEDS: MELATONIN 5 MG PO (23:55)
[2025-06-05] MEDS: ROXICODONE 5 MG PO ×2 (02:00→15:05)
[2025-06-05 03:31] VITALS: BP 136/66
[2025-06-05 05:45] VITALS: BMI 32.4
[2025-06-05 06:20] LABS: Hematocrit 34.2 % (37.0-47.0); Hemoglobin 10.5 g/dL (12.0-16.0); Mean Corp Hgb Conc. 30.7 g/dL (33.0-37.0); Mean Corpuscular Volume 98.0 fL (81.0-99.0); Nucleated Red Blood Cells % 0 %; Platelet Count 207 10^3/uL (130-400); Red Cell Dist. Width 16.6 % (11.5-14.5)
[2025-06-05 06:40] LABS: Blood Urea Nitrogen 29 mg/dl (7-17); Calcium 9.6 mg/dl (8.4-10.2); Carbon Dioxide 34 mmol/L (22-30); Chloride 91 mmol/L (98-107); Estimated Creatinine Clearance 40 ml/min; Glucose 115 mg/dl (70-99); Potassium 3.8 mmol/L (3.5-5.1); Sodium 132 mmol/L (135-145); eGFR 44.24
[2025-06-05 07:40] VITALS: BP 122/65
[2025-06-05 07:46] LABS: Glucose - Point of Care 282 mg/dl (70-99)
[2025-06-05] MEDS: DUONEB 3 ML INH ×4 (08:00→20:13)
[2025-06-05] MEDS: ADVAIR HFA 115/21 MCG INHALER 2 PUFF INH ×2 (08:00→20:14)
[2025-06-05] MEDS: MIRALAX 17 GRAMS PO (09:05)
[2025-06-05] MEDS: TRICOR 145 MG PO (09:05)
[2025-06-05] MEDS: LIPITOR 80 MG PO (09:05)
[2025-06-05] MEDS: COLACE 100 MG PO ×2 (09:05→19:57)
[2025-06-05] MEDS: PROTONIX 40 MG PO (09:05)
[2025-06-05] MEDS: MUCINEX 600 MG PO ×2 (09:05→19:57)
[2025-06-05] MEDS: DELTASONE 10 MG PO (09:05)
[2025-06-05] MEDS: ZETIA 10 MG PO (09:05)
[2025-06-05] MEDS: COREG 6.25 MG PO ×2 (09:06→19:57)
[2025-06-05] MEDS: MS CONTIN (EXTENDED RELEASE) 15 MG PO ×2 (09:06→19:57)
[2025-06-05] MEDS: DESENEX/MITRAZOL/ZEASORB 1 APPLIC TOPICAL ×2 (09:10→20:05)
[2025-06-05] MEDS: LANTUS SC (09:12)
[2025-06-05] MEDS: NOVOLOG FLEXPEN SC ×2 (09:12→09:20)
[2025-06-05] MEDS: NOVOLOG FLEXPEN-MODERATE RESISTANCE 5 UNITS SC (09:14)
[2025-06-05] MEDS: ELIQUIS 5 MG PO ×2 (09:35→19:57)
[2025-06-05] MEDS: DRISDOL (VITAMIN D2) 50000 UNITS PO (09:52)
[2025-06-05] MEDS: LANTUS 0.13 UNITS SC (09:52)
--- NOTE | 2025-06-05 11:24 | W.PN.HOSP.TC ---
Today's Communication/Plan
-
Monitor vital signs see plan
Continue with Eliquis
Monitor hemoglobin
Monitor renal function
Bladder scan
Titrate insulin
Discharge planning
Assessment / Plan
Assessment / Plan
General: Comfortable
HEENT: Normocephalic, Anicteric, Moist Mucous Membranes
Cardiovascular: Regular Rhythm
Respiratory: Wheeze (mild L sided), Crackles (Basilar), Non-Labored Respirations
GI: Soft, Non Distended and Non Tender
Neurology: Awake, Alert and No Motor Deficits
Psych: calm
New right lower extremity DVT off of anticoagulation
# Recent acute DVT/PE status post IVC filter on 05/12
# History of bilateral DVT on 04/25 however venous Doppler on 05/12 was negative for DVT
Continue with heparin drip
Anticoagulation decision per oncology,Dr Riky Banuelos consulted. Discussed with Dr. Banuelos, requested hematology evaluation regarding anticoagulation. Vascular surgery also following given extent of DVT. CT venogram 05/31 showed thrombus extension through
the iliac veins and into the IVC up to the level of the filter. Initially mechanical lysis was recommended however patient symptoms continue to improve. Now vascular surgery recommended anticoagulation and no plan for surgery. Hematology
recommended starting Eliquis 5 mg twice daily. now on 5mg BID eliquis
once anticoagulation will continue long-term then IVC filter needs to come out. Discussed with pulmonary and this should be addressed in a month as currently still has clot until the IVC filter
# Worsening hypoxemia secondary to reoccurrence of right pleural effusion unclear etiology unclear if parapneumonic versus recurrence of hemothorax
-O2 requirement increased from 2 to 4 L while at rehab; her O2 requirement has not changed much.
-Chest x-ray appears to show large right pleural effusion however when IR attempted thoracentesis there is not enough fluid.
CT with subacute PE
-IR consulted for thoracentesis, discussed with pulmonary and per them started with thoracentesis and if bloody then will get chest tube. Status post attempt of thoracentesis 05/31, not enough fluid.
- Pulmonary following
- Monitor hemoglobin
#History of right-sided hemothorax with mediastinal shift secondary to Eliquis after minimally invasive wedge resection on 04/15 for lung cancer status post chest tube on 05/11 since removed on 05/19
Hypokalemia
Replete
Oral thrush
- Resolved
CKD 3B
- Monitor renal function
Intermittent urinary retention, continue with bladder scan
Non-small cell lung cancer status post minimally invasive wedge resection on 04/15
History of non-small cell lung cancer
KRAS positive, PD-L1 expression 1%. Biopsy RIGHT lung at [facility]-11/2024; S/p minimally invasive right lower lobe wedge resection by Dr. Banuelos on 04/15/2025
COPD
- Continue albuterol
- Continue prednisone
Chronic HFpEF
- Continue Coreg
- Hold Lasix given elevated creatinine
Hyponatremia
Monitor
Chronic back pain
- Continue oxycodone, morphine
Suspect JOHNNY on CKD 2
monitor renal function
bladder scan
Type 2 diabetes
- Continue Lantus and aspart
- Insulin sliding scale
Acute on chronic anemia
On last admission had acute blood loss anemia secondary to hemothorax, monitor
- Monitor hemoglobin
2 cm low-density lesion of superior right lower lobe of the liver
Benign thyroid nodule
History of CVA
Buttock pressure injury
Hypercholesterolemia
- Continue fenofibrate, Zetia,, statin
Full code
DVT prophylaxis�Eliquis
PT rec SNF
I spent a total of 52 minutes with the patient or on the floor. More than 50% of this time involved counseling and coordination of care.
Anticipated Discharge: Within 24 hours
Subjective/Interval History
-
Date of Service: June 05, 2025
Denies nausea
Objective Data
-
Labs:
Laboratory Results
06/05/25
06:01
WBC 14.1 H
Hgb 10.5 L
Hct 34.2 L
Plt Count 207
Sodium 132 L
Potassium 3.8
Chloride 91 L
Carbon Dioxide 34 H
BUN 29 H
Creatinine 1.3 H
Glucose 115 H
Calcium 9.6
Vital Signs:
Vital Signs
Temp Pulse Resp BP Pulse Ox
97.5 F 61 16 122/65 99
06/05/25 07:40 06/05/25 08:00 06/05/25 08:00 06/05/25 07:40 06/05/25 08:00
I&O
06/04/25 06/05/25 06/06/25
06:59 06:59 06:59
Intake Total 280 / 280 240 / 240
Output Total 1500 / 1500 450 / 450
Balance -1220 / -1220 -210 / -210
[2025-06-05 11:42] VITALS: BP 121/57
[2025-06-05 11:58] LABS: Glucose - Point of Care 181 mg/dl (70-99)
[2025-06-05] MEDS: NOVOLOG FLEXPEN 3 UNITS SC ×2 (13:42→17:00)
[2025-06-05] MEDS: NOVOLOG FLEXPEN-MODERATE RESISTANCE 1 UNITS SC (13:43)
[2025-06-05] MEDS: TYLENOL 650 MG PO (15:06)
[2025-06-05 15:45] VITALS: BP 106/59
[2025-06-05 16:41] LABS: Glucose - Point of Care 310 mg/dl (70-99)
[2025-06-05] MEDS: NOVOLOG FLEXPEN-MODERATE RESISTANCE 7 UNITS SC (17:00)
[2025-06-05 19:09] VITALS: BP 118/60
[2025-06-05 21:21] LABS: Glucose - Point of Care 194 mg/dl (70-99)
[2025-06-05] MEDS: MELATONIN 5 MG PO (22:46)
[2025-06-05 23:24] VITALS: BP 134/65
[2025-06-06] VITALS (8 sets, daily range): BP systolic 120–139; BP diastolic 57–99; PULSE 71; O2SAT 96; BMI 32.5
[2025-06-06 04:39] LABS: Hematocrit 31.4 % (37.0-47.0); Hemoglobin 10.1 g/dL (12.0-16.0); Mean Corp Hgb Conc. 32.2 g/dL (33.0-37.0); Mean Corpuscular Volume 94.6 fL (81.0-99.0); Platelet Count 180 10^3/uL (130-400); Red Cell Dist. Width 16.5 % (11.5-14.5)
[2025-06-06 05:48] LABS: Blood Urea Nitrogen 29 mg/dl (7-17); Calcium 9.2 mg/dl (8.4-10.2); Carbon Dioxide 30 mmol/L (22-30); Chloride 94 mmol/L (98-107); Estimated Creatinine Clearance 43 ml/min; Glucose 127 mg/dl (70-99); Potassium 3.7 mmol/L (3.5-5.1); Sodium 132 mmol/L (135-145); eGFR 48.70
[2025-06-06 06:19] LABS: Absolute Neutrophils -Man Diff 9.2 10^3/uL (1.4-6.5)
[2025-06-06 06:20] LABS: Normal RBC Morphology Yes; Platelets Checked Yes; Total Cells Counted 100
--- NOTE | 2025-06-06 06:40 | PTCARENOTE ---
Pt complained of chest pain upon waking up. EKG shows NSR, possible inferiori infarct, age undetermined. VSS. Pt reports feeling slightly better when laying flat. EDM OPERATOR made aware and came to the bedside to speak to pt. Orders placed for Q8 trops and
IV protonix. Pt resting comfortably at this time with call vidal within reach.
--- NOTE | 2025-06-06 06:47 | W.PN.UPDATE ---
Update Note
Progress Note Update
Pt c/o CP this am without associated symptoms, no radiation. Ekg similar to previous. Will check troponins for completeness. Protonix IV x1 added.
[2025-06-06] MEDS: NSS (PRESERVATIVE FREE) 10 ML IV (06:52)
[2025-06-06] MEDS: PROTONIX IV 40 MG IV (06:52)
[2025-06-06 07:15] LABS: Glucose - Point of Care 135 mg/dl (70-99)
[2025-06-06] MEDS: NOVOLOG FLEXPEN-MODERATE RESISTANCE SC (07:17)
[2025-06-06] MEDS: DUONEB INH (07:20)
[2025-06-06] MEDS: ADVAIR HFA 115/21 MCG INHALER INH (07:20)
[2025-06-06] MEDS: NOVOLOG FLEXPEN 3 UNITS SC ×3 (08:10→17:09)
[2025-06-06] MEDS: MS CONTIN (EXTENDED RELEASE) 15 MG PO ×2 (08:10→19:04)
[2025-06-06] MEDS: LIPITOR 80 MG PO (08:11)
[2025-06-06] MEDS: COLACE 100 MG PO ×2 (08:11→19:54)
[2025-06-06] MEDS: LANTUS 0.13 UNITS SC (08:11)
[2025-06-06] MEDS: TRICOR 145 MG PO (08:12)
[2025-06-06] MEDS: MUCINEX 600 MG PO ×2 (08:12→19:54)
[2025-06-06] MEDS: ZETIA 10 MG PO (08:12)
[2025-06-06] MEDS: ELIQUIS 5 MG PO ×2 (08:12→19:54)
[2025-06-06] MEDS: MIRALAX 17 GRAMS PO (08:12)
[2025-06-06] MEDS: PROTONIX 40 MG PO (08:12)
[2025-06-06] MEDS: COREG 6.25 MG PO ×2 (08:13→19:54)
[2025-06-06] MEDS: DESENEX/MITRAZOL/ZEASORB 1 APPLIC TOPICAL ×2 (08:17→19:54)
[2025-06-06 08:55] LABS: Troponin I 0.016 ng/ml
[2025-06-06] MEDS: DUONEB 3 ML INH ×3 (11:10→19:17)
[2025-06-06 11:53] LABS: Glucose - Point of Care 213 mg/dl (70-99)
--- NOTE | 2025-06-06 12:06 | W.PN.HOSP.TC ---
Today's Communication/Plan
-
Monitor vital signs see plan
Wean oxygen as tolerated
Hold Lasix for another day
Monitor renal function closely
Continue with Eliquis
Hopeful discharge tomorrow
Assessment / Plan
Assessment / Plan
General: Comfortable
HEENT: Normocephalic, Anicteric, Moist Mucous Membranes
Cardiovascular: Regular Rhythm
Respiratory: Wheeze (mild L sided), Crackles (Basilar), Non-Labored Respirations
GI: Soft, Non Distended and Non Tender
Neurology: Awake, Alert and No Motor Deficits
Psych: calm
New right lower extremity DVT off of anticoagulation
# Recent acute DVT/PE status post IVC filter on 05/12
# History of bilateral DVT on 04/25 however venous Doppler on 05/12 was negative for DVT
Continue with heparin drip
Anticoagulation decision per oncology,Dr Riky Banuelos consulted. Discussed with Dr. Banuelos, requested hematology evaluation regarding anticoagulation. Vascular surgery also following given extent of DVT. CT venogram 05/31 showed thrombus extension through
the iliac veins and into the IVC up to the level of the filter. Initially mechanical lysis was recommended however patient symptoms continue to improve. Now vascular surgery recommended anticoagulation and no plan for surgery. Hematology
recommended starting Eliquis 5 mg twice daily. now on 5mg BID eliquis
once anticoagulation will continue long-term then IVC filter needs to come out. Discussed with pulmonary and this should be addressed in a month as currently still has clot until the IVC filter
# Worsening hypoxemia secondary to reoccurrence of right pleural effusion unclear etiology unclear if parapneumonic versus recurrence of hemothorax
-O2 requirement increased from 2 to 4 L while at rehab; her O2 requirement has not changed much.
-Chest x-ray appears to show large right pleural effusion however when IR attempted thoracentesis there is not enough fluid.
CT with subacute PE
-IR consulted for thoracentesis, discussed with pulmonary and per them started with thoracentesis and if bloody then will get chest tube. Status post attempt of thoracentesis 05/31, not enough fluid.
- Pulmonary following
- Monitor hemoglobin
#History of right-sided hemothorax with mediastinal shift secondary to Eliquis after minimally invasive wedge resection on 04/15 for lung cancer status post chest tube on 05/11 since removed on 05/19
Hypokalemia
Replete
Oral thrush
- Resolved
CKD 3B
- Monitor renal function
Intermittent urinary retention, continue with bladder scan
Non-small cell lung cancer status post minimally invasive wedge resection on 04/15
History of non-small cell lung cancer
KRAS positive, PD-L1 expression 1%. Biopsy RIGHT lung at [facility]-11/2024; S/p minimally invasive right lower lobe wedge resection by Dr. Banuelos on 04/15/2025
COPD
- Continue albuterol
- Continue prednisone
Chronic HFpEF
- Continue Coreg
- Hold Lasix given elevated creatinine
Hyponatremia
Monitor
Chronic back pain
- Continue oxycodone, morphine
Suspect JOHNNY on CKD 2
monitor renal function
bladder scan
Type 2 diabetes
- Continue Lantus and aspart
- Insulin sliding scale
Acute on chronic anemia
On last admission had acute blood loss anemia secondary to hemothorax, monitor
- Monitor hemoglobin
2 cm low-density lesion of superior right lower lobe of the liver
Benign thyroid nodule
History of CVA
Buttock pressure injury
Hypercholesterolemia
- Continue fenofibrate, Zetia,, statin
Full code
DVT prophylaxis�Eliquis
PT rec SNF
Anticipated Discharge: Within 24 hours
Subjective/Interval History
-
Date of Service: June 06, 2025
Feeling better
Objective Data
-
Labs:
Laboratory Results
06/06/25
04:18
WBC 12.3 H
Hgb 10.1 L
Hct 31.4 L
Plt Count 180
Sodium 132 L
Potassium 3.7
Chloride 94 L
Carbon Dioxide 30
BUN 29 H
Creatinine 1.2 H
Glucose 127 H
Calcium 9.2
Vital Signs:
Vital Signs
Temp Pulse Resp BP Pulse Ox
97.7 F 66 18 129/64 97
06/06/25 11:03 06/06/25 11:12 06/06/25 11:12 06/06/25 11:03 06/06/25 11:12
I&O
06/05/25 06/06/25 06/07/25
06:59 06:59 06:59
Intake Total 240 / 240 720 / 720
Output Total 450 / 450 760 / 760
Balance -210 / -210 -40 / -40
[2025-06-06] MEDS: ROXICODONE 5 MG PO (12:41)
[2025-06-06] MEDS: NOVOLOG FLEXPEN-MODERATE RESISTANCE 3 UNITS SC (13:18)
--- NOTE | 2025-06-06 14:33 | CM ---
Patient is for possible discharge on 06/07/25. Plan remains for transfer to [facility].CM confirmed with Franca at [facility] bed availability for patient on 06/07.
[facility] NPI- [id number]
Dr. John Barba -
CM contacted [facility] for SNF and ambulance authorizations:
SNF authorization ( approved 7 days 06/07- 06/13) auth#[id number]
Ambulance Auth (acute Care, [facility]) auth#[id number]
[facility]
Report #[phone] ext. [phone]
[2025-06-06 15:36] LABS: Troponin I 0.019 ng/ml
[2025-06-06 16:45] LABS: Glucose - Point of Care 159 mg/dl (70-99)
[2025-06-06] MEDS: NOVOLOG FLEXPEN-MODERATE RESISTANCE 1 UNITS SC (17:09)
[2025-06-06] MEDS: ADVAIR HFA 115/21 MCG INHALER 2 PUFF INH (19:17)
[2025-06-06] MEDS: TYLENOL 650 MG PO (19:57)
[2025-06-06 21:10] LABS: Glucose - Point of Care 189 mg/dl (70-99)
[2025-06-06] MEDS: MELATONIN 5 MG PO (22:02)
[2025-06-06 23:44] LABS: Troponin I 0.018 ng/ml
[2025-06-07 03:51] VITALS: BP 129/69
[2025-06-07] MEDS: ROXICODONE 5 MG PO ×2 (05:06→11:53)
[2025-06-07 06:00] VITALS: BMI 32.1
[2025-06-07] MEDS: ADVAIR HFA 115/21 MCG INHALER INH (07:12)
[2025-06-07] MEDS: DUONEB INH (07:13)
[2025-06-07 08:07] LABS: Glucose - Point of Care 156 mg/dl (70-99)
[2025-06-07] MEDS: MIRALAX 17 GRAMS PO (08:17)
[2025-06-07] MEDS: MS CONTIN (EXTENDED RELEASE) 15 MG PO (08:17)
[2025-06-07] MEDS: LANTUS 0.13 UNITS SC (08:18)
[2025-06-07] MEDS: ZETIA 10 MG PO (08:18)
[2025-06-07] MEDS: PROTONIX 40 MG PO (08:18)
[2025-06-07] MEDS: ELIQUIS 5 MG PO (08:18)
[2025-06-07] MEDS: TRICOR 145 MG PO (08:18)
[2025-06-07] MEDS: LIPITOR 80 MG PO (08:18)
[2025-06-07] MEDS: MUCINEX 600 MG PO (08:18)
[2025-06-07] MEDS: COLACE 100 MG PO (08:19)
[2025-06-07] MEDS: NOVOLOG FLEXPEN-MODERATE RESISTANCE 1 UNITS SC ×2 (08:19→12:42)
[2025-06-07] MEDS: COREG 6.25 MG PO (08:20)
[2025-06-07] MEDS: NOVOLOG FLEXPEN 3 UNITS SC ×2 (08:20→12:42)
[2025-06-07] MEDS: DESENEX/MITRAZOL/ZEASORB 1 APPLIC TOPICAL (08:22)
[2025-06-07 08:28] VITALS: BP 141/64
[2025-06-07 08:45] LABS: Hematocrit 34.6 % (37.0-47.0); Hemoglobin 10.8 g/dL (12.0-16.0); Mean Corp Hgb Conc. 31.2 g/dL (33.0-37.0); Mean Corpuscular Volume 93.8 fL (81.0-99.0); Platelet Count 187 10^3/uL (130-400); Red Cell Dist. Width 17.1 % (11.5-14.5)
[2025-06-07 10:00] LABS: Nucleated Red Blood Cells % 0 %
--- NOTE | 2025-06-07 10:09 | CM ---
indicated pt ready for discharge.
Franca from [facility] accepted pt .
SNF authorization ( approved 7 days 06/07- 06/13) auth#[id number]
Ambulance Auth (acute Care, [facility]) auth#[id number]. Medical nec form completed.
LM with .
[facility]
Report #[phone] ext. [phone]

PLAN To [facility] today
[2025-06-07 10:50] LABS: Blood Urea Nitrogen 21 mg/dl (7-17); Calcium 9.3 mg/dl (8.4-10.2); Chloride 95 mmol/L (98-107); Estimated Creatinine Clearance 43 ml/min; Glucose 122 mg/dl (70-99); Potassium 3.6 mmol/L (3.5-5.1); Sodium 131 mmol/L (135-145); eGFR 48.70
[2025-06-07] MEDS: DUONEB 3 ML INH (11:18)
[2025-06-07 11:35] VITALS: BP 122/64
[2025-06-07 11:55] LABS: Carbon Dioxide 33 mmol/L (22-30)
--- NOTE | 2025-06-07 12:07 | W.PN.HOSP.TC ---
Today's Communication/Plan
-
Monitor vital signs see plan
Wean oxygen as tolerated
Monitor renal function
Restart Lasix tomorrow
Continue with Eliquis
Discharge to rehab today
Time of discharge 38 minutes
Assessment / Plan
Assessment / Plan
General: Comfortable
HEENT: Normocephalic, Anicteric, Moist Mucous Membranes
Cardiovascular: Regular Rhythm
Respiratory: Wheeze (mild L sided), Crackles (Basilar), Non-Labored Respirations
GI: Soft, Non Distended and Non Tender
Neurology: Awake, Alert and No Motor Deficits
Psych: calm
New right lower extremity DVT off of anticoagulation
# Recent acute DVT/PE status post IVC filter on 05/12
# History of bilateral DVT on 04/25 however venous Doppler on 05/12 was negative for DVT
Continue with heparin drip
Anticoagulation decision per oncology,Dr Riky Banuelos consulted. Discussed with Dr. Banuelos, requested hematology evaluation regarding anticoagulation. Vascular surgery also following given extent of DVT. CT venogram 05/31 showed thrombus extension through
the iliac veins and into the IVC up to the level of the filter. Initially mechanical lysis was recommended however patient symptoms continue to improve. Now vascular surgery recommended anticoagulation and no plan for surgery. Hematology
recommended starting Eliquis 5 mg twice daily. now on 5mg BID eliquis
once anticoagulation will continue long-term then IVC filter needs to come out. Discussed with pulmonary and this should be addressed in a month as currently still has clot until the IVC filter
# Worsening hypoxemia secondary to reoccurrence of right pleural effusion unclear etiology unclear if parapneumonic versus recurrence of hemothorax
-O2 requirement increased from 2 to 4 L while at rehab; her O2 requirement has not changed much.
-Chest x-ray appears to show large right pleural effusion however when IR attempted thoracentesis there is not enough fluid.
CT with subacute PE
-IR consulted for thoracentesis, discussed with pulmonary and per them started with thoracentesis and if bloody then will get chest tube. Status post attempt of thoracentesis 05/31, not enough fluid.
- Pulmonary following
- Monitor hemoglobin
#History of right-sided hemothorax with mediastinal shift secondary to Eliquis after minimally invasive wedge resection on 04/15 for lung cancer status post chest tube on 05/11 since removed on 05/19
Hypokalemia
Replete
Oral thrush
- Resolved
CKD 3B
- Monitor renal function
Intermittent urinary retention, continue with bladder scan
Non-small cell lung cancer status post minimally invasive wedge resection on 04/15
History of non-small cell lung cancer
KRAS positive, PD-L1 expression 1%. Biopsy RIGHT lung at [facility]-11/2024; S/p minimally invasive right lower lobe wedge resection by Dr. Banuelos on 04/15/2025
COPD
- Continue albuterol
- Continue prednisone
Chronic HFpEF
- Continue Coreg
- Hold Lasix given elevated creatinine. Restart Lasix tomorrow
Hyponatremia
Monitor
Chronic back pain
- Continue oxycodone, morphine
Suspect JOHNNY on CKD 2
monitor renal function
bladder scan
Type 2 diabetes
- Continue Lantus and aspart
- Insulin sliding scale
Acute on chronic anemia
On last admission had acute blood loss anemia secondary to hemothorax, monitor
- Monitor hemoglobin
2 cm low-density lesion of superior right lower lobe of the liver
Benign thyroid nodule
History of CVA
Buttock pressure injury
Hypercholesterolemia
- Continue fenofibrate, Zetia,, statin
Full code
DVT prophylaxis�Eliquis
PT rec SNF
Anticipated Discharge: Today
Subjective/Interval History
-
Date of Service: June 07, 2025
Denies pain
Objective Data
-
Labs:
Laboratory Results
06/07/25
07:35
WBC 9.6
Hgb 10.8 L
Hct 34.6 L
Plt Count 187
Sodium 131 L
Potassium 3.6
Chloride 95 L
Carbon Dioxide 33 H
BUN 21 H
Creatinine 1.2 H
Glucose 122 H
Calcium 9.3
Vital Signs:
Vital Signs
Temp Pulse Resp BP Pulse Ox
97.7 F 75 20 122/64 100
06/07/25 11:35 06/07/25 11:35 06/07/25 11:35 06/07/25 11:35 06/07/25 11:35
I&O
06/06/25 06/07/25 06/08/25
06:59 06:59 06:59
Intake Total 720 / 720 720 / 720
Output Total 760 / 760 600 / 600
Balance -40 / -40 120 / 120
--- NOTE | 2025-06-07 12:15 | W.DCSUMMARY ---
Discharge Summary
Discharge Data
Date of Admission: 05/29/25
Date of Discharge: 06/07/25
-
Pending Results: No
Hospital Course
69-year-old female with history of CKD, non-small cell cancer status post minimally invasive wedge resection, history of non-small cell lung cancer, COPD, CHF, chronic back pain, type 2 diabetes mellitus, acute on chronic anemia, 2 cm low-density
lesion of superior right lower lobe of the liver, thyroid nodule, hyperlipidemia, recent right-sided hemothorax, history of DVT/PE came to the hospital with new right lower extremity DVT while patient was off anticoagulation from previous
hospitalization. On last hospitalization patient did got IVC filter. Patient was initially started on IV heparin. Vascular surgery and hematology was consulted. Given extent of DVT vascular surgery initially recommended mechanical lysis however
patient was initially hesitant. In the meantime patient symptoms continue to improve and then vascular surgery recommended to continue anticoagulation and there is no need for mechanical lysis at this time. Given her clot burden up to the IVC
filter, pulmonary recommended to wait on IVC filter removal and to follow-up with IR closely outpatient for removal. This was addressed with patient multiple times prior to discharge that IVC filter needs to be removed in near future. Once patient
hemoglobin was stable and she was feeling better, IV heparin was transitioned to Eliquis. Patient was also valued by physical therapy who recommended rehab. Once her symptoms continue to improve, she was then discharged to rehab with instructions
to follow-up with all her physicians outpatient.
Discharge Plan
-
Patient Disposition: Alf/SNF
Discharge Diagnosis/Procedures: New right lower extremity DVT
Pulmonary embolism
Recent hemothorax
Renal insufficiency
Non-small cell lung cancer status post minimally invasive wedge resection on 04/15
Chronic HFpEF
Condition: Fair
Diet: Low Cholesterol, 2 Gram Sodium and Diabetic, Carb Controlled
Activity: With assistance and As tolerated
Driving Restrictions: Not until seen by your Dr
Bathing Restrictions: None
Others Tests: Repeat CT chest and lower extremity ultrasound in 1 month
Activity Restrictions/Additional Instructions:
The IVC filter should be removed when no longer necessary, preferably within one year. Per pulmonary should be removed in next 6 months
Referrals:
Laura Gallagher MD [Active, Hematology / Oncology]
Romie Spicer III, MD [Active, Vascular Surgery]
Irving Pagan DO [Family Provider, Family Practice] - in less than 1 week
Stepan Hughes MD [Active, Pulmonary Medicine] - in two weeks
Riky Banuelos MD [Active, Surgical]
Asif Murillo MD [Active, Radiology]
Prescriptions:
New
miconazole nitrate [Miconazorb AF] 2 % Powder
1 applic topical BID Qty: 0 0RF
pantoprazole 40 mg Tablet,Delayed Release (Dr/Ec)
40 mg PO DAILY Qty: 30 0RF
melatonin 5 mg Tablet
5 mg PO HS Qty: 0 0RF
Eliquis 5 mg Tablet
5 mg PO BID Qty: 0 0RF
Continued
carvedilol 6.25 mg Tablet
6.25 mg PO Q12H
albuterol sulfate [Ventolin HFA] 90 mcg/actuation Hfa Aerosol Inhaler
2 puff INHALATION R Q4HPRN PRN (Reason: sob)
ezetimibe 10 mg tablet
10 mg PO DAILY
ergocalciferol (vitamin D2) [Vitamin D2] 1,250 mcg (50,000 unit) Capsule
1,250 mcg PO RODRIGUEZ
guaifenesin [Mucinex] 600 mg Tablet Extended Release 12hr
600 mg PO BID
fluticasone propion-salmeterol [Advair Diskus] 250-50 mcg/dose Blister With Device
1 inh INHALATION R BID
atorvastatin [Lipitor] 80 mg Tablet
80 mg PO DAILY
fenofibrate micronized 200 mg Capsule
200 mg PO DAILY
zinc oxide 20 % Ointment
1 applic TOPICAL BID
magnesium hydroxide [Milk of Magnesia] 400 mg/5 mL Suspension
2,400 mg PO [id number] PRN (Reason: constipation)
bisacodyl [Dulcolax (bisacodyl)] 10 mg Suppository
10 mg MS DAILYPRN PRN (Reason: if no bm in 4 days, give day 5)
Fleet Enema 19-7 gram/118 mL Enema
118 ml MS DAILYPRN PRN (Reason: if no bm in 5 days, give on day 6)
docusate sodium [Colace] 100 mg Capsule
100 mg PO BID
ipratropium-albuterol 0.5 mg-3 mg(2.5 mg base)/3 mL solution for nebulization
3 ml inhalation R QID
polyethylene glycol 3350 17 gram powder in packet
17 g PO DAILY
furosemide 80 mg tablet
80 mg PO DAILY
acetaminophen 325 mg Tablet
650 mg PO Q4H PRN (Reason: mild pain/fever)
lidocaine 4 % Adhesive Patch,Medicated
1 patch TOPICAL DAILY
ondansetron HCl 4 mg Tablet
4 mg PO Q6H PRN (Reason: n/v)
insulin aspart U-100 100 unit/mL (3 mL) insulin pen
See Rx Instructions .ROUTE .COMPLEX
Rx Instructions:
sliding scale: 0-199=0 units
200-250=3 units
251-300=5 units
301-350=7 units
351-400=9 units
401-999=10 units
nystatin 100,000 unit/mL suspension
5 ml PO QID
Rx Instructions:
start 05/23/05 and continue for 7 days
morphine 15 mg tablet extended release
15 mg PO Q12H Qty: 6 0RF
oxycodone 5 mg Tablet
5 mg PO Q6HPRN PRN (Reason: moderate-severe pain) Qty: 12 0RF
Changed
insulin glargine [Lantus Solostar U-100 Insulin] 100 unit/mL (3 mL) insulin pen
13 unit SC DAILY Qty: 0 0RF
Discontinued
prednisone 10 mg Tablet
20 mg PO DAILY
Rx Instructions:
begin 05/27/25 x 3 days
prednisone 10 mg tablet
10 mg PO DAILY
Rx Instructions:
starting 05/30/25 x 3 days
Discharge Orders:
Discharge Patient (As Directed); Ordered 06/07/25
Ordered By: Myron Langford
Discharge Date and Time
Discharge Date/Time: 06/07/25 15:21
Print Language: CAMBODIAN
[2025-06-07 12:21] LABS: Glucose - Point of Care 189 mg/dl (70-99)
[2025-06-07 15:15] VITALS: BP 123/66
== END 2025-06-07 15:21 | DRG 299 ==
LOC: 4 EAST ACU 18:14
PROVIDERS: Registered Nurse; ADMITTING PHYSICIAN Hospitalist; ATTENDING PHYSICIAN Internal Medicine; CONSULT PHYSICIAN Surgery Vascular Surgery; EMERGENCY PHYSICIAN Emergency Medicine; FAMILY PHYSICIAN Family Medicine; OTHER PHYSICIAN Internal Medicine; OTHER PHYSICIAN Internal Medicine Hematology & Oncology
DX: I82.4Z1 Acute embolism and thrombosis of unspecified deep veins of right distal lower extremity (principal); I26.99 Other pulmonary embolism without acute cor pulmonale; I50.32 Chronic diastolic (congestive) heart failure; B37.0 Candidal stomatitis; I13.0 Hypertensive heart and chronic kidney disease with heart failure and stage 1 through stage 4 chronic kidney disease, or unspecified chronic kidney disease; E87.1 Hypo-osmolality and hyponatremia; J90 Pleural effusion, not elsewhere classified; Z68.32 Body mass index [BMI] 32.0-32.9, adult; N18.32 Chronic kidney disease, stage 3b; E87.6 Hypokalemia; J44.89 Other specified chronic obstructive pulmonary disease; J45.20 Mild intermittent asthma, uncomplicated; D64.9 Anemia, unspecified; E11.22 Type 2 diabetes mellitus with diabetic chronic kidney disease; E66.9 Obesity, unspecified; Z79.01 Long term (current) use of anticoagulants; Z79.4 Long term (current) use of insulin; Z79.899 Other long term (current) drug therapy; Z87.891 Personal history of nicotine dependence
CPT/HCPCS: 71045; 71046; 71275; 74174; 76604; 80048; 80053; 82962; 83036; 83615; 83735; 83880; 84443; 84484; 85025; 85027; 85730; 93005; 93971; 94640; 97116; 97163; 97167; 97530; 97535; 99285; Q9967